=== PATIENT | male | born 1960 | race Hispanic/Latino ===

== ENCOUNTER 2017-12-15 21:25 | Emergency (ER) | payer MEDICARE ==
[2017-12-15 22:33] VITALS: BP 103/67
--- NOTE | 2017-12-16 00:13 | Cat Scan Report ---
FINAL REPORT PROCEDURE: CT HEAD/BRAIN WO CON TECHNIQUE: Computerized tomography of the head was performed without contrast material. HISTORY: fall, right brow abrasion COMPARISON: 01/10/2015 FINDINGS: Skull and scalp: Normal. Paranasal sinuses: Mild opacification of the ethmoid sinuses. Ventricles and subarachnoid spaces: Normal. Cerebrum: No evidence of hemorrhage, acute infarction or mass. Moderate atrophy and periventricular deep white matter changes.. Cerebellum and brainstem: No evidence of hemorrhage, acute infarction or mass. Vasculature: Normal. Comments: None. IMPRESSION: There is no evidence of an acute intracranial process. Moderate atrophy and periventricular deep white matter changes.
--- NOTE | 2017-12-16 00:14 | Cat Scan Report ---
FINAL REPORT PROCEDURE: CT CERVICAL SPINE WO CON TECHNIQUE: Computerized tomography of the cervical spine was performed from the skull base to T1 without contrast material. HISTORY: fall, head injury COMPARISON: No prior studies are available for comparison. FINDINGS: The alignment of the vertebral segments is normal. The heights of the vertebral bodies are maintained. There is loss of disc space height at the C6-7 level. Moderate spur formation off the vertebral bodies from the C5 through the C7 vertebral levels is noted. No acute fracture or dislocation of the cervical spine. Spinal canal is adequate at all levels. The visualized portion of the airway is patent IMPRESSION: No acute fracture dislocation of the cervical spine. Mild cervical spondylosis and degenerative disc changes in the lower cervical spine as described..
--- NOTE | 2017-12-16 00:27 | Emergency Department Report ---
ED Fall HPI - General Chief Complaint: Fall Stated Complaint: FALL Time Seen by Provider: 12/15/17 22:31 Source: EMS Mode of arrival: Stretcher Limitations: Physical Limitation, Other - History of Present Illness Initial Comments: 57-year-old male with a past medical history of COPD, diabetes, hypertension, CVA with right hemiplegia presents to the hospital from alf status post fall. Patient fell striking his head. No LOC reported. Patient appears to be nonambulatory. Details of fall unknown at this time. Patient has dysarthria but can shake his head yes and no to questions. He denies any pain at this time. Oriented at least to self - Related Data Home Medications Medication Instructions Recorded Confirmed Last Taken Amiodarone [Cordarone 200 MG TAB] 200 mg FEEDTUBE BID 03/13/15 06/21/16 06/20/16 Aspirin [Aspirin TAB] 325 mg FEEDTUBE DAILY 03/13/15 06/21/16 06/20/16 Atorvastatin [Lipitor] 40 mg FEEDTUBE QHS 03/13/15 06/21/16 06/20/16 Insulin Glargine [Lantus VIAL] 8 unit SUB-Q QHS 03/13/15 06/21/16 06/20/16 Ipratropium/Albuterol Sulfate 3 ml IH Q8H 03/13/15 06/20/16 06/20/16 [Iprat-Albut 0.5-3(2.5) mg/3 ml] AtorvaSTATin [Lipitor] 40 mg FEEDTUBE QHS 06/21/16 06/21/16 06/20/16 D-Methorphan/PE/Acetaminophen 325 each FEEDTUBE Q6HR 06/21/16 06/21/16 06/20/16 [Tylenol Cold Max Day Caplet] Gabapentin [Neurontin] 300 mg FEEDTUBE BID 06/21/16 06/21/16 06/20/16 Insulin Glargine [Lantus VIAL] 8 unit SUB-Q QHS 06/21/16 06/21/16 06/20/16 LORazepam [Ativan] 0.5 mg FEEDTUBE Q6H PRN 06/21/16 06/21/16 06/20/16 Omeprazole 20 mg FEEDTUBE DAILY 06/21/16 06/21/16 06/20/16 Vitamin B Complex [B Complex] 30 ml FEEDTUBE DAILY 06/21/16 06/21/16 06/20/16 oxyCODONE /ACETAMINOPHEN [Percocet 1 tab FEEDTUBE Q6HR PRN 06/21/16 06/21/16 5/325 mg] Previous Rx's Medication Instructions Recorded Last Taken Type Levofloxacin [Levaquin TAB] 500 mg PO QDAY #3 tablet 06/23/16 Unknown Rx predniSONE [Deltasone] 50 mg PO QDAY #5 tab 06/23/16 Unknown Rx Allergies Allergy/AdvReac Type Severity Reaction Status Date / Time No Known Allergies Allergy Verified 02/27/15 00:48 ED Review of Systems ROS: Stated complaint: FALL Other details as noted in HPI Comment: Unobtainable due to pts medical conditions (dyarthria, cva) ED Past Medical Hx - Past Medical History Previous Medical History?: Yes Hx Hypertension: Yes Hx CVA: Yes Hx Congestive Heart Failure: No (unknown) Hx Diabetes: Yes Hx Renal Disease: No (BETHEL, resolved) Hx Asthma: No (unknown) Hx COPD: Yes - Surgical History Past Surgical History?: No Additional Surgical History: bree - Social History Smoking Status: Unknown if ever smoked Substance Use Type: None - Medications Home Medications: Home Medications Medication Instructions Recorded Confirmed Last Taken Type Amiodarone [Cordarone 200 MG TAB] 200 mg FEEDTUBE BID 03/13/15 06/21/16 History Aspirin [Aspirin TAB] 325 mg FEEDTUBE DAILY 03/13/15 06/21/16 06/20/16 History Atorvastatin [Lipitor] 40 mg FEEDTUBE QHS 03/13/15 06/21/16 06/20/16 History Insulin Glargine [Lantus VIAL] 8 unit SUB-Q QHS 03/13/15 06/21/16 06/20/16 History Ipratropium/Albuterol Sulfate 3 ml IH Q8H 03/13/15 06/20/16 06/20/16 History [Iprat-Albut 0.5-3(2.5) mg/3 ml] AtorvaSTATin [Lipitor] 40 mg FEEDTUBE QHS 06/21/16 06/21/16 06/20/16 History D-Methorphan/PE/Acetaminophen 325 each FEEDTUBE Q6HR 06/21/16 06/21/16 06/20/16 History [Tylenol Cold Max Day Caplet] Gabapentin [Neurontin] 300 mg FEEDTUBE BID 06/21/16 06/21/16 06/20/16 History Insulin Glargine [Lantus VIAL] 8 unit SUB-Q QHS 06/21/16 06/21/16 06/20/16 History LORazepam [Ativan] 0.5 mg FEEDTUBE Q6H PRN 06/21/16 06/21/16 06/20/16 History Omeprazole 20 mg FEEDTUBE DAILY 06/21/16 06/21/16 06/20/16 History Vitamin B Complex [B Complex] 30 ml FEEDTUBE DAILY 06/21/16 06/21/16 06/20/16 History oxyCODONE /ACETAMINOPHEN [Percocet 1 tab FEEDTUBE Q6HR PRN 06/21/16 06/21/16 History 5/325 mg] Levofloxacin [Levaquin TAB] 500 mg PO QDAY #3 tablet 06/23/16 Unknown Rx predniSONE [Deltasone] 50 mg PO QDAY #5 tab 06/23/16 Unknown Rx ED Physical Exam - General Limitations: Other - Other Other exam information: General: No limitations, patient is alert in no acute distress Head exam: Right lateral brow abrasion/contusion Eyes exam: Normal appearance, pupils equal reactive to light ENT: Moist mucous membrane, normal oropharynx Neck exam: Normal inspection, full range of motion, no meningismus nontender Respiratory exam: Clear to auscultation bilateral, no wheezes, rales, crackles Cardiovascular: Normal rate and rhythm Abdomen: Soft, nondistended, and nontender, with normal bowel sounds, no rebound, or guarding Extremity: Full range of motion normal inspection no deformity Back: Normal Inspection, full range of motion, no tenderness Neurologic: Alert, right-sided weakness of right arm contraction.Good Hand 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 systems planner on the left and good left foot dorsiflexion Psychiatric: normal affect, normal mood Skin: Warm, dry, intact ED Course Vital Signs 12/15/17 22:31 Temperature 98.2 F Pulse Rate 80 Respiratory 18 Rate Blood Pressure 103/67 O2 Sat by Pulse 97 Oximetry ED Medical Decision Making - Radiology Data Radiology results: report reviewed read by radiologist ct Head: naf ct cervical spine: naf see report for chronic/incidental findings Critical Care Time: No Critical care attestation.: If time is entered above; I have spent that time in minutes in the direct care of this critically ill patient, excluding procedure time. ED Disposition Clinical Impression: Fall Qualifiers: Encounter type: initial encounter Qualified Code(s): W19.XXXA - Unspecified fall, initial encounter Contusion, brow Qualifiers: Encounter type: initial encounter Qualified Code(s): S00.83XA - Contusion of other part of head, initial encounter Disposition: DC-01 TO HOME OR SELFCARE Is pt being admited?: No Does the pt Need Aspirin: No Condition: Stable Instructions: Fall Prevention for Older Adults (ED) Referrals: CAROLINE NG MD [Primary Care Provider] - 3-5 Days Time of Disposition: 00:28
== END 2017-12-16 02:37 | disposition home or self-care (01) ==
LOC: ED 21:25
DX: S00.83XA Contusion of other part of head, initial encounter (principal); I10 Essential (primary) hypertension; E11.9 Type 2 diabetes mellitus without complications; J44.9 Chronic obstructive pulmonary disease, unspecified; Z86.73 Personal history of transient ischemic attack (TIA), and cerebral infarction without residual deficits; W18.09XA Striking against other object with subsequent fall, initial encounter; Y93.89 Activity, other specified; Y99.8 Other external cause status; Y92.129 Unspecified place in nursing home as the place of occurrence of the external cause
CPT/HCPCS: 70450; 72125

== ENCOUNTER 2018-01-17 07:48 | Inpatient (IN) | payer MEDICARE ==
[2018-01-17] MEDS ORDERED: NACL 0.9% 1000 ML 1,000 ML IV ONE (09:24)
[2018-01-17 10:14] LABS: Hematocrit 47.5 % (35.5-45.6); Hemoglobin 15.6 gm/dl (11.8-15.2); Mean Corpuscular HGB Conc 33 % (32-34); Mean Corpuscular Hemoglobin 30 pg (28-32); Mean Corpuscular Volume 92 fl (84-94); Red Blood Count 5.13 M/mm3 (3.65-5.03); Red Cell Distribution Width 14.8 % (13.2-15.2)
[2018-01-17 10:18] LABS: INR 0.95 (0.87-1.13); Partial Thromboplastin Time 25.4 Sec. (24.2-36.6)
[2018-01-17 10:23] LABS: Alanine Aminotransferase 47 units/L (7-56); Albumin 3.7 g/dL (3.9-5); BUN/Creatinine Ratio 53; Blood Urea Nitrogen 21 mg/dL (9-20); Calcium 8.9 mg/dL (8.4-10.2); Hemolysis Index 40; Lipase 52 units/L (13-60)
[2018-01-17 11:06] LABS: Platelet Count 103 K/mm3 (140-440)
[2018-01-17 11:09] LABS: Band Neutrophils # (Manual) 0.1 K/mm3; Basophils % (Manual) 0 % (0.0-1.8); Total Cells Counted 100
[2018-01-17 11:10] LABS: Anisocytosis 1+; Ovalocytes Few; Platelet Estimate Consistent w Auto
--- NOTE | 2018-01-17 14:31 | Emergency Department Report ---
HPI - General Chief Complaint: Weakness Time Seen by Provider: 01/17/18 09:24 - HPI HPI: 57-year-old who resides in a assisted, was sent to er for g-tube malfunction , and unable to feed patient. patient had g-tube broken for about two months, but according to assisted, according to staff, patient's g-tube has been broken for over a month but has been somehow functional until today. patient g- tube was unable to be flushed so he was sent to er. 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 he also has a h/o contractions right side, type 2 dm, htn, seizures, kidney disease. ED Past Medical Hx - Past Medical History Hx Hypertension: Yes Hx CVA: Yes Hx Congestive Heart Failure: No (unknown) Hx Diabetes: Yes Hx Renal Disease: No (BETHEL, resolved) Hx Asthma: No (unknown) Hx COPD: Yes - Surgical History Additional Surgical History: bree - Social History Smoking Status: Unknown if ever smoked - Medications Home Medications: Home Medications Medication Instructions Recorded Confirmed Last Taken Type Amiodarone [Cordarone 200 MG TAB] 200 mg FEEDTUBE BID 03/13/15 06/21/16 History Aspirin [Aspirin TAB] 325 mg FEEDTUBE DAILY 03/13/15 06/21/16 06/20/16 History Insulin Glargine [Lantus VIAL] 8 unit SUB-Q QHS 03/13/15 06/21/16 06/20/16 History Ipratropium/Albuterol Sulfate 3 ml IH Q8H 03/13/15 06/20/16 06/20/16 History [Iprat-Albut 0.5-3(2.5) mg/3 ml] AtorvaSTATin [Lipitor] 40 mg FEEDTUBE QHS 06/21/16 06/21/16 06/20/16 History D-Methorphan/PE/Acetaminophen 325 each FEEDTUBE Q6HR 06/21/16 06/21/16 06/20/16 History [Tylenol Cold Max Day Caplet] Gabapentin [Neurontin] 300 mg FEEDTUBE BID 06/21/16 06/21/16 06/20/16 History Insulin Glargine [Lantus VIAL] 8 unit SUB-Q QHS 06/21/16 06/21/16 06/20/16 History LORazepam [Ativan] 0.5 mg FEEDTUBE Q6H PRN 06/21/16 06/21/16 06/20/16 History Omeprazole 20 mg FEEDTUBE DAILY 06/21/16 06/21/16 06/20/16 History Vitamin B Complex [B Complex] 30 ml FEEDTUBE DAILY 06/21/16 06/21/16 06/20/16 History oxyCODONE /ACETAMINOPHEN [Percocet 1 tab FEEDTUBE Q6HR PRN 06/21/16 06/21/16 History 5/325 mg] predniSONE [Deltasone] 50 mg PO QDAY #5 tab 06/23/16 Unknown Rx ED Review of Systems ROS: Stated complaint: G TUBE REPLACE/LOW BP Other details as noted in HPI Comment: Unobtainable due to pts medical conditions Physical Exam - Physical Exam Vital Signs: Vital Signs 01/17/18 01/17/18 01/17/18 07:53 08:09 08:28 Temperature 98.0 F 98.0 F Pulse Rate 67 67 Respiratory 17 17 Rate Blood Pressure 94/56 Blood Pressure 94/56 [Right] O2 Sat by Pulse 96 94 67 L Oximetry 01/17/18 01/17/18 01/17/18 08:45 09:15 09:30 Temperature Pulse Rate 67 73 65 Respiratory 13 17 17 Rate Blood Pressure 96/65 83/59 Blood Pressure [Right] O2 Sat by Pulse 97 98 95 Oximetry 01/17/18 01/17/18 01/17/18 09:45 10:00 10:15 Temperature Pulse Rate 64 62 65 Respiratory 17 17 17 Rate Blood Pressure 97/64 97/64 91/63 Blood Pressure [Right] O2 Sat by Pulse 95 96 97 Oximetry 01/17/18 01/17/18 01/17/18 10:30 10:45 11:00 Temperature Pulse Rate 64 57 L 60 Respiratory 12 16 18 Rate Blood Pressure 96/64 98/64 107/66 Blood Pressure [Right] O2 Sat by Pulse 99 97 97 Oximetry Physical Exam: Gen. Awake nonverbal Head atraumatic normocephalic Eyes PERR LA EOMI Chest regular rate and rhythm normal S1-S2 lungs clear bilaterally Abdomen soft nondistended, g-tube area Back no point tenderness paravertebral tenderness Neuro no focal deficit. Psych normal mood. ED Course Vital Signs 01/17/18 01/17/18 01/17/18 07:53 08:09 08:28 Temperature 98.0 F 98.0 F Pulse Rate 67 67 Respiratory 17 17 Rate Blood Pressure 94/56 Blood Pressure 94/56 [Right] O2 Sat by Pulse 96 94 67 L Oximetry 01/17/18 01/17/18 01/17/18 08:45 09:15 09:30 Temperature Pulse Rate 67 73 65 Respiratory 13 17 17 Rate Blood Pressure 96/65 83/59 Blood Pressure [Right] O2 Sat by Pulse 97 98 95 Oximetry 01/17/18 01/17/18 01/17/18 09:45 10:00 10:15 Temperature Pulse Rate 64 62 65 Respiratory 17 17 17 Rate Blood Pressure 97/64 97/64 91/63 Blood Pressure [Right] O2 Sat by Pulse 95 96 97 Oximetry 01/17/18 01/17/18 01/17/18 10:30 10:45 11:00 Temperature Pulse Rate 64 57 L 60 Respiratory 12 16 18 Rate Blood Pressure 96/64 98/64 107/66 Blood Pressure [Right] O2 Sat by Pulse 99 97 97 Oximetry ED Medical Decision Making - Lab Data Result diagrams: 01/20/18 09:02 01/17/18 09:53 Critical care attestation.: If time is entered above; I have spent that time in minutes in the direct care of this critically ill patient, excluding procedure time. ED Disposition Clinical Impression: PEG (percutaneous endoscopic gastrostomy) adjustment/replacement/removal Disposition: OP ADMIT IP TO THIS HOSP Is pt being admited?: Yes Does the pt Need Aspirin: No Condition: Stable
--- NOTE | 2018-01-17 16:22 | History and Physical Report ---
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 Pt is nonverbal and unable to provide history. History taken from [facility] staff. As per SNF staff, the patient was sent to ED for evaluation of Gastric-tube malfunction, and subsequent inability to feed patient. Patient G-tube broken for about two months, but has been functional until today. Pt seen and evaluated in ED and found to have nonfunctional G tube. Surgery team consulted. GI team consulted, and will replace G tube in AM. No reports of fever, chills, CP, Palpitations, Trauma, BRBPR, productive cough, skin rash or recent ill contacts. Past History Past Medical History: COPD, diabetes, hypertension, stroke Past Surgical History: Other (G tube placement) Social history: single. denies: smoking, alcohol abuse, prescription drug abuse Family history: no significant family history (reviewed) Medications and Allergies Allergies Allergy/AdvReac Type Severity Reaction Status Date / Time No Known Allergies Allergy Verified 02/27/15 00:48 Home Medications Medication Instructions Recorded Confirmed Last Taken Type Amiodarone [Cordarone 200 MG TAB] 200 mg FEEDTUBE BID 03/13/15 06/21/16 History Aspirin [Aspirin TAB] 325 mg FEEDTUBE DAILY 03/13/15 06/21/16 06/20/16 History Atorvastatin [Lipitor] 40 mg FEEDTUBE QHS 03/13/15 06/21/16 06/20/16 History Insulin Glargine [Lantus VIAL] 8 unit SUB-Q QHS 03/13/15 06/21/16 06/20/16 History Ipratropium/Albuterol Sulfate 3 ml IH Q8H 03/13/15 06/20/16 06/20/16 History [Iprat-Albut 0.5-3(2.5) mg/3 ml] AtorvaSTATin [Lipitor] 40 mg FEEDTUBE QHS 06/21/16 06/21/16 06/20/16 History D-Methorphan/PE/Acetaminophen 325 each FEEDTUBE Q6HR 06/21/16 06/21/16 06/20/16 History [Tylenol Cold Max Day Caplet] Gabapentin [Neurontin] 300 mg FEEDTUBE BID 06/21/16 06/21/16 06/20/16 History Insulin Glargine [Lantus VIAL] 8 unit SUB-Q QHS 06/21/16 06/21/16 06/20/16 History LORazepam [Ativan] 0.5 mg FEEDTUBE Q6H PRN 06/21/16 06/21/16 06/20/16 History Omeprazole 20 mg FEEDTUBE DAILY 06/21/16 06/21/16 06/20/16 History Vitamin B Complex [B Complex] 30 ml FEEDTUBE DAILY 06/21/16 06/21/16 06/20/16 History oxyCODONE /ACETAMINOPHEN [Percocet 1 tab FEEDTUBE Q6HR PRN 06/21/16 06/21/16 History 5/325 mg] Levofloxacin [Levaquin TAB] 500 mg PO QDAY #3 tablet 06/23/16 Unknown Rx predniSONE [Deltasone] 50 mg PO QDAY #5 tab 06/23/16 Unknown Rx Review of Systems ROS unobtainable: due to mental status Exam - Constitutional Vitals: Temp Pulse Resp BP Pulse Ox 98.0 F 60 18 107/66 95 01/17/18 08:28 01/17/18 11:00 01/17/18 12:01 01/17/18 11:00 01/17/18 12:01 General appearance: Present: mild distress, cachectic - EENT Eyes: Present: miosis - Neck Neck: Present: supple, normal ROM - Respiratory Respiratory: bilateral: diminished, rhonchi - Cardiovascular Heart Sounds: Present: S1 & S2. Absent: rub, click - Extremities Extremities: pulses symmetrical, No edema Peripheral Pulses: within normal limits - Abdominal General gastrointestinal: Present: soft, non-distended, other (G tube remnant in place. ) Male genitourinary: Present: normal - Integumentary Integumentary: Present: clear, warm, dry - Musculoskeletal Musculoskeletal: left sided weakness - Psychiatric Psychiatric: no intact judgment & insight, no memory intact - Neurologic Neurologic: focal deficits, no gait normal Results - Labs CBC & Chem 7: 01/17/18 09:53 01/17/18 09:53 Labs: Abnormal lab results 01/17/18 01/17/18 Range/Units 09:53 09:53 RBC 5.13 H (3.65-5.03) M/mm3 Hgb 15.6 H (11.8-15.2) gm/dl Hct 47.5 H (35.5-45.6) % Plt Count 103 L (140-440) K/mm3 Eosinophils % (Manual) 10.0 H (0.0-4.3) % Eosinophils # (Manual) 0.6 H (0.0-0.4) K/mm3 BUN 21 H (9-20) mg/dL Creatinine 0.4 L (0.8-1.5) mg/dL Albumin 3.7 L (3.9-5) g/dL Assessment and Plan - Patient Problems (1) Gastrostomy tube dysfunction Current Visit: Yes Status: Acute Plan to address problem: Surgery Consulted, GI consulted, Pending replacement in AM. supportive care, NPO for now. IVF resuscitation, (2) HTN (hypertension) Current Visit: Yes Status: Acute Qualifiers: Hypertension type: essential hypertension Qualified Code(s): I10 - Essential (primary) hypertension Plan to address problem: monitor bp q shift, IV hydralazine prn (3) Diabetes 1.5, managed as type 2 Current Visit: No Status: Chronic Plan to address problem: Consistent carbohydrate diet, insulin, accu check (4) DVT prophylaxis Current Visit: Yes Status: Acute Plan to address problem: SCD to ble while in bed
[2018-01-17] MEDS ORDERED: SODIUM CHLORIDE FLUSH SYRINGE 10 ML IV PRN (16:24)
[2018-01-17] MEDS ORDERED: PROVENTIL IH PRN (16:24)
[2018-01-17] MEDS ORDERED: TYLENOL PO PRN (16:24)
[2018-01-17] MEDS ORDERED: ZOFRAN IV PRN (16:24)
[2018-01-17] MEDS: SODIUM CHLORIDE FLUSH SYRINGE 10 ML IV SCH (22:05)
[2018-01-17] MEDS: NACL 0.9% 1000 ML 1,000 ML IV SCH (22:05)
--- NOTE | 2018-01-18 10:41 | Gastroenterology Consultation ---
<SUDHIR GRIFFIN - Last Filed: 01/18/18 10:43> History of Present Illness - Reason for Consult Consult date: 01/18/18 PEG replacement Requesting physician: RENÉE GONZALEZ - History of Present Illness Patient is a 57 y/o male detention resident with PMH of HTN, DM, COPD, CVA with LHP, contracture, and dysphagia (s/p PEG) who presented to ED for G-tube malfunction to which GI has been consulted. Pt non-verbal and unable to give history. History obtained via chart review. According to [facility] staff, G-tube has been broken for over a month. Upon exam only a small amount of G-tube remnant remained with bumper intact. Abd soft, non-distended. Past History Past Medical History: COPD, diabetes, hypertension, stroke Past Surgical History: Other (G tube placement) Social history: single. denies: smoking, alcohol abuse, prescription drug abuse Family history: no significant family history (reviewed) Medications and Allergies Allergies Allergy/AdvReac Type Severity Reaction Status Date / Time No Known Allergies Allergy Verified 02/27/15 00:48 Home Medications Medication Instructions Recorded Confirmed Last Taken Type Amiodarone [Cordarone 200 MG TAB] 200 mg FEEDTUBE BID 03/13/15 06/21/16 History Aspirin [Aspirin TAB] 325 mg FEEDTUBE DAILY 03/13/15 06/21/16 06/20/16 History Atorvastatin [Lipitor] 40 mg FEEDTUBE QHS 03/13/15 06/21/16 06/20/16 History Insulin Glargine [Lantus VIAL] 8 unit SUB-Q QHS 03/13/15 06/21/16 06/20/16 History Ipratropium/Albuterol Sulfate 3 ml IH Q8H 03/13/15 06/20/16 06/20/16 History [Iprat-Albut 0.5-3(2.5) mg/3 ml] AtorvaSTATin [Lipitor] 40 mg FEEDTUBE QHS 06/21/16 06/21/16 06/20/16 History D-Methorphan/PE/Acetaminophen 325 each FEEDTUBE Q6HR 06/21/16 06/21/16 06/20/16 History [Tylenol Cold Max Day Caplet] Gabapentin [Neurontin] 300 mg FEEDTUBE BID 06/21/16 06/21/16 06/20/16 History Insulin Glargine [Lantus VIAL] 8 unit SUB-Q QHS 06/21/16 06/21/16 06/20/16 History LORazepam [Ativan] 0.5 mg FEEDTUBE Q6H PRN 06/21/16 06/21/16 06/20/16 History Omeprazole 20 mg FEEDTUBE DAILY 06/21/16 06/21/16 06/20/16 History Vitamin B Complex [B Complex] 30 ml FEEDTUBE DAILY 06/21/16 06/21/16 06/20/16 History oxyCODONE /ACETAMINOPHEN [Percocet 1 tab FEEDTUBE Q6HR PRN 06/21/16 06/21/16 History 5/325 mg] Levofloxacin [Levaquin TAB] 500 mg PO QDAY #3 tablet 06/23/16 Unknown Rx predniSONE [Deltasone] 50 mg PO QDAY #5 tab 06/23/16 Unknown Rx Active Meds: Active Medications Acetaminophen (Tylenol) 650 mg PO Q4H PRN PRN Reason: Pain MILD(1-3)/Fever >100.5/WELLER Albuterol (Proventil) 2.5 mg IH Q4HRT PRN PRN Reason: Shortness Of Breath Sodium Chloride (Nacl 0.9% 1000 Ml) 1,000 mls @ 75 mls/hr IV DIRECT [facility] Last Admin: 01/17/18 22:05 Dose: 75 mls/hr Ondansetron HCl (Zofran) 4 mg IV Q8H PRN PRN Reason: Nausea And Vomiting Sodium Chloride (Sodium Chloride Flush Syringe 10 Ml) 10 ml IV BID [facility] Last Admin: 01/17/18 22:05 Dose: 10 ml Sodium Chloride (Sodium Chloride Flush Syringe 10 Ml) 10 ml IV PRN PRN PRN Reason: LINE FLUSH Review of Systems - Review of Systems ROS unobtainable: due to mental status Exam - Constitutional Vital Signs: Temp Pulse Resp BP Pulse Ox 98.2 F 69 20 108/72 95 01/18/18 07:33 01/18/18 07:33 01/18/18 07:33 01/18/18 07:33 01/18/18 07:33 General appearance: no acute distress, other (alert, non-verbal) - Respiratory Respiratory: bilateral: diminished (anterior) - Cardiovascular Rhythm: regular Heart Sounds: Present: S1 & S2 - Gastrointestinal General gastrointestinal: Present: soft, non-distended, normal bowel sounds, other (+PEG remnant) - Neurologic Neurological: other (unable to assess) - Labs CBC & Chem 7: 01/17/18 09:53 01/17/18 09:53 Lab Results: Laboratory Results - last 24 hr 01/17/18 09:53 WBC 5.9 RBC 5.13 H Hgb 15.6 H Hct 47.5 H MCV 92 MCH 30 MCHC 33 RDW 14.8 Plt Count 103 L Add Manual Diff Complete Total Counted 100 Seg Neuts % (Manual) 61.0 Band Neutrophils % 1.0 Lymphocytes % (Manual) 21.0 Reactive Lymphs % (Man) 0 Monocytes % (Manual) 7.0 Eosinophils % (Manual) 10.0 H Basophils % (Manual) 0 Metamyelocytes % 0 Myelocytes % 0 Promyelocytes % 0 Blast Cells % 0 Nucleated RBC % Not Reportable Seg Neutrophils # Man 3.6 Band Neutrophils # 0.1 Lymphocytes # (Manual) 1.2 Abs React Lymphs (Man) 0.0 Monocytes # (Manual) 0.4 Eosinophils # (Manual) 0.6 H Basophils # (Manual) 0.0 Metamyelocytes # 0.0 Myelocytes # 0.0 Promyelocytes # 0.0 Blast Cells # 0.0 WBC Morphology Not Reportable Hypersegmented Neuts Not Reportable Hyposegmented Neuts Not Reportable Hypogranular Neuts Not Reportable Smudge Cells Not Reportable Toxic Granulation Not Reportable Toxic Vacuolation Not Reportable Dohle Bodies Not Reportable Pelger-Huet Anomaly Not Reportable Meghan Rods Not Reportable Platelet Estimate Consistent w auto Clumped Platelets Not Reportable Plt Clumps, EDTA Not Reportable Large Platelets Not Reportable Giant Platelets Not Reportable Platelet Satelliting Not Reportable Plt Morphology Comment Not Reportable RBC Morphology Not Reportable Dimorphic RBCs Not Reportable Polychromasia Not Reportable Hypochromasia Not Reportable Poikilocytosis Not Reportable Anisocytosis 1+ Microcytosis Not Reportable Macrocytosis Not Reportable Spherocytes Not Reportable Pappenheimer Bodies Not Reportable Sickle Cells Not Reportable Target Cells Not Reportable Tear Drop Cells Not Reportable Ovalocytes Few Helmet Cells Not Reportable [place] Bodies Not Reportable [place] Rings Not Reportable Constantino Cells Not Reportable Bite Cells Not Reportable Crenated Cell Not Reportable Elliptocytes Not Reportable Acanthocytes (Spur) Not Reportable Rouleaux Not Reportable Hemoglobin C Crystals Not Reportable Schistocytes Not Reportable Malaria parasites Not Reportable [place] Bodies Not Reportable Hem Pathologist Commnt No Assessment and Plan 1.PEG replacement -small amount of PEG remnant remains with bumper intact -will have Dr. Mares assess today for PEG replacement -continue supportive care -further recommendations to follow <PAZ MARES - Last Filed: 01/18/18 21:13> Medications and Allergies Active Meds: Active Medications Acetaminophen (Tylenol) 650 mg PO Q4H PRN PRN Reason: Pain MILD(1-3)/Fever >100.5/WELLER Albuterol (Proventil) 2.5 mg IH Q4HRT PRN PRN Reason: Shortness Of Breath Sodium Chloride (Nacl 0.9% 1000 Ml) 1,000 mls @ 75 mls/hr IV DIRECT [facility] Last Admin: 01/17/18 22:05 Dose: 75 mls/hr Ondansetron HCl (Zofran) 4 mg IV Q8H PRN PRN Reason: Nausea And Vomiting Sodium Chloride (Sodium Chloride Flush Syringe 10 Ml) 10 ml IV BID [facility] Last Admin: 01/18/18 15:08 Dose: 10 ml Sodium Chloride (Sodium Chloride Flush Syringe 10 Ml) 10 ml IV PRN PRN PRN Reason: LINE FLUSH Exam - Constitutional Vital Signs: Temp Pulse Resp BP Pulse Ox 98.5 F 74 20 107/69 99 01/18/18 15:37 01/18/18 15:37 01/18/18 15:37 01/18/18 15:37 01/18/18 15:37 - Labs CBC & Chem 7: 01/17/18 09:53 01/17/18 09:53 Assessment and Plan Patient seen and examined. Agree with note above. The external portion of Peg tube appears to have been cut although details regarding it's current condition is unclear. the bumper appears intact and likely the internal portion. He needs peg exchange, may need to be done with anesthesia however given mental status and unclear how he would tolerate removal at bedside with subsequent peg exchange. attempt to obtain consent from family member if possible, otherwise would need to be done on "emergent" basis for nutrition/medication purposes if NOK is not obtainable.
[2018-01-18] MEDS: SODIUM CHLORIDE FLUSH SYRINGE 10 ML IV SCH (15:08)
--- NOTE | 2018-01-18 17:57 | Progress Note ---
Assessment and Plan Assessment and plan: --Malfunctioning of PEG tube; GI evaluation, possible PEG tube replacement, nothing by mouth, IV fluids Supportive care --Type 2 diabetes mellitus; Accu-Chek sliding scale coverage, tube feeding after PEG placement --Hypertension; moderate control, continue antihypertensives When necessary hydralazine --DVT prophylaxis; SCDs, no pharmacologic anticoagulation pending procedure --Full CODE STATUS Follow GI evaluation and recommendations DC planning. Case management, discharged back to SNF After PEG placement History Interval history: Patient was admitted with malfunctioning of PEG tube GI evaluated the patient, possible replacement of PEG tube No new events reported by the nursing staff Patient is noncommunicative Vital signs reviewed Hospitalist Physical - Constitutional Vitals: Temp Pulse Resp BP Pulse Ox 98.5 F 74 20 107/69 99 01/18/18 15:37 01/18/18 15:37 01/18/18 15:37 01/18/18 15:37 01/18/18 15:37 General appearance: Present: mild distress, cachectic - EENT Eyes: Present: PERRL, EOM intact - Neck Neck: Present: supple, normal ROM - Respiratory Respiratory effort: normal Respiratory: bilateral: diminished, rhonchi, negative: rales, wheezing - Cardiovascular Rhythm: regular Heart Sounds: Present: S1 & S2 - Extremities Extremities: no ischemia, No edema - Abdominal General gastrointestinal: soft, non-tender, non-distended, normal bowel sounds, other (residual piece of PEG tube noted, foul-smelling) - Integumentary Integumentary: Present: clear, warm - Psychiatric Psychiatric: other (noncommunicative) - Neurologic Neurologic: other (noncommunicative) Results - Labs CBC & Chem 7: 01/17/18 09:53 01/17/18 09:53 Labs: Laboratory Last Values WBC 5.9 K/mm3 (4.5-11.0) 01/17/18 09:53 RBC 5.13 M/mm3 (3.65-5.03) H 01/17/18 09:53 Hgb 15.6 gm/dl (11.8-15.2) H 01/17/18 09:53 Hct 47.5 % (35.5-45.6) H 01/17/18 09:53 MCV 92 fl (84-94) 01/17/18 09:53 MCH 30 pg (28-32) 01/17/18 09:53 MCHC 33 % (32-34) 01/17/18 09:53 RDW 14.8 % (13.2-15.2) 01/17/18 09:53 Plt Count 103 K/mm3 (140-440) L 01/17/18 09:53 Add Manual Diff Complete 01/17/18 09:53 Total Counted 100 01/17/18 09:53 Seg Neuts % (Manual) 61.0 % (40.0-70.0) 01/17/18 09:53 Band Neutrophils % 1.0 % 01/17/18 09:53 Lymphocytes % (Manual) 21.0 % (13.4-35.0) 01/17/18 09:53 Reactive Lymphs % (Man) 0 % 01/17/18 09:53 Monocytes % (Manual) 7.0 % (0.0-7.3) 01/17/18 09:53 Eosinophils % (Manual) 10.0 % (0.0-4.3) H 01/17/18 09:53 Basophils % (Manual) 0 % (0.0-1.8) 01/17/18 09:53 Metamyelocytes % 0 % 01/17/18 09:53 Myelocytes % 0 % 01/17/18 09:53 Promyelocytes % 0 % 01/17/18 09:53 Blast Cells % 0 % 01/17/18 09:53 Nucleated RBC % Not Reportable 01/17/18 09:53 Seg Neutrophils # Man 3.6 K/mm3 (1.8-7.7) 01/17/18 09:53 Band Neutrophils # 0.1 K/mm3 01/17/18 09:53 Lymphocytes # (Manual) 1.2 K/mm3 (1.2-5.4) 01/17/18 09:53 Abs React Lymphs (Man) 0.0 K/mm3 01/17/18 09:53 Monocytes # (Manual) 0.4 K/mm3 (0.0-0.8) 01/17/18 09:53 Eosinophils # (Manual) 0.6 K/mm3 (0.0-0.4) H 01/17/18 09:53 Basophils # (Manual) 0.0 K/mm3 (0.0-0.1) 01/17/18 09:53 Metamyelocytes # 0.0 K/mm3 01/17/18 09:53 Myelocytes # 0.0 K/mm3 01/17/18 09:53 Promyelocytes # 0.0 K/mm3 01/17/18 09:53 Blast Cells # 0.0 K/mm3 01/17/18 09:53 WBC Morphology Not Reportable 01/17/18 09:53 Hypersegmented Neuts Not Reportable 01/17/18 09:53 Hyposegmented Neuts Not Reportable 01/17/18 09:53 Hypogranular Neuts Not Reportable 01/17/18 09:53 Smudge Cells Not Reportable 01/17/18 09:53 Toxic Granulation Not Reportable 01/17/18 09:53 Toxic Vacuolation Not Reportable 01/17/18 09:53 Dohle Bodies Not Reportable 01/17/18 09:53 Pelger-Huet Anomaly Not Reportable 01/17/18 09:53 Meghan Rods Not Reportable 01/17/18 09:53 Platelet Estimate Consistent w auto 01/17/18 09:53 Clumped Platelets Not Reportable 01/17/18 09:53 Plt Clumps, EDTA Not Reportable 01/17/18 09:53 Large Platelets Not Reportable 01/17/18 09:53 Giant Platelets Not Reportable 01/17/18 09:53 Platelet Satelliting Not Reportable 01/17/18 09:53 Plt Morphology Comment Not Reportable 01/17/18 09:53 RBC Morphology Not Reportable 01/17/18 09:53 Dimorphic RBCs Not Reportable 01/17/18 09:53 Polychromasia Not Reportable 01/17/18 09:53 Hypochromasia Not Reportable 01/17/18 09:53 Poikilocytosis Not Reportable 01/17/18 09:53 Anisocytosis 1+ 01/17/18 09:53 Microcytosis Not Reportable 01/17/18 09:53 Macrocytosis Not Reportable 01/17/18 09:53 Spherocytes Not Reportable 01/17/18 09:53 Pappenheimer Bodies Not Reportable 01/17/18 09:53 Sickle Cells Not Reportable 01/17/18 09:53 Target Cells Not Reportable 01/17/18 09:53 Tear Drop Cells Not Reportable 01/17/18 09:53 Ovalocytes Few 01/17/18 09:53 Helmet Cells Not Reportable 01/17/18 09:53 [place] Bodies Not Reportable 01/17/18 09:53 [place] Rings Not Reportable 01/17/18 09:53 Constantino Cells Not Reportable 01/17/18 09:53 Bite Cells Not Reportable 01/17/18 09:53 Crenated Cell Not Reportable 01/17/18 09:53 Elliptocytes Not Reportable 01/17/18 09:53 Acanthocytes (Spur) Not Reportable 01/17/18 09:53 Rouleaux Not Reportable 01/17/18 09:53 Hemoglobin C Crystals Not Reportable 01/17/18 09:53 Schistocytes Not Reportable 01/17/18 09:53 Malaria parasites Not Reportable 01/17/18 09:53 [place] Bodies Not Reportable 01/17/18 09:53 Hem Pathologist Commnt No 01/17/18 09:53 PT 13.2 Sec. (12.2-14.9) 01/17/18 09:53 INR 0.95 (0.87-1.13) 01/17/18 09:53 APTT 25.4 Sec. (24.2-36.6) 01/17/18 09:53 Sodium 139 mmol/L (137-145) 01/17/18 09:53 Potassium 4.6 mmol/L (3.6-5.0) 01/17/18 09:53 Chloride 101.3 mmol/L (98-107) 01/17/18 09:53 Carbon Dioxide 29 mmol/L (22-30) 01/17/18 09:53 Anion Gap 13 mmol/L 01/17/18 09:53 BUN 21 mg/dL (9-20) H 01/17/18 09:53 Creatinine 0.4 mg/dL (0.8-1.5) L 01/17/18 09:53 Estimated GFR > 60 ml/min 01/17/18 09:53 BUN/Creatinine Ratio 53 % 01/17/18 09:53 Glucose 90 mg/dL (75-100) 01/17/18 09:53 Calcium 8.9 mg/dL (8.4-10.2) 01/17/18 09:53 Total Bilirubin 0.50 mg/dL (0.1-1.2) 01/17/18 09:53 AST 35 units/L (5-40) 01/17/18 09:53 ALT 47 units/L (7-56) 01/17/18 09:53 Alkaline Phosphatase 94 units/L (35-129) 01/17/18 09:53 Total Creatine Kinase 72 units/L (55-170) 01/17/18 09:53 Troponin T 0.022 ng/mL (0.00-0.029) 01/17/18 09:34 Total Protein 6.6 g/dL (6.3-8.2) 01/17/18 09:53 Albumin 3.7 g/dL (3.9-5) L 01/17/18 09:53 Albumin/Globulin Ratio 1.3 % 01/17/18 09:53 Lipase 52 units/L (13-60) 01/17/18 09:53
[2018-01-19] MEDS: SODIUM CHLORIDE FLUSH SYRINGE 10 ML IV SCH ×3 (00:41→22:24)
[2018-01-19] MEDS: NACL 0.9% 1000 ML 1,000 ML IV SCH (01:12)
--- NOTE | 2018-01-19 09:30 | Progress Note ---
Assessment and Plan Assessment and plan: --Malfunctioning of PEG tube; GI evaluation, possible PEG tube replacement, nothing by mouth, IV fluids Supportive care --Type 2 diabetes mellitus; Accu-Chek sliding scale coverage, tube feeding after PEG placement --Hypertension; moderate control, continue antihypertensives When necessary hydralazine --DVT prophylaxis; SCDs, no pharmacologic anticoagulation pending procedure --Full CODE STATUS Follow GI evaluation and recommendations DC planning. Case management, discharged back to SNF After PEG placement History Interval history: Patient seen and examined medical reports reviewed Admitted with malfunctioning of PEG tube GI evaluated possible replacement of PEG Patient is noncommunicative, not in acute distress Vital signs reviewed Hospitalist Physical - Constitutional Vitals: Temp Pulse Resp BP Pulse Ox 97.7 F 71 20 96/68 97 01/19/18 07:17 01/18/18 20:18 01/19/18 07:17 01/19/18 07:17 01/18/18 21:45 General appearance: Present: no acute distress, cachectic - EENT Eyes: Present: PERRL, EOM intact - Neck Neck: Present: supple, normal ROM - Respiratory Respiratory effort: normal Respiratory: negative: rales, rhonchi, wheezing - Cardiovascular Rhythm: regular Heart Sounds: Present: S1 & S2 - Extremities Extremities: no ischemia, No edema - Abdominal General gastrointestinal: soft, non-tender, non-distended, normal bowel sounds, other (residual piece of peg) - Integumentary Integumentary: Present: clear, warm - Psychiatric Psychiatric: other (noncommunicative) - Neurologic Neurologic: other (noncommunicative, residual neuro deficit) Results - Labs CBC & Chem 7: 01/17/18 09:53 01/17/18 09:53 Labs: Laboratory Last Values WBC 5.9 K/mm3 (4.5-11.0) 01/17/18 09:53 RBC 5.13 M/mm3 (3.65-5.03) H 01/17/18 09:53 Hgb 15.6 gm/dl (11.8-15.2) H 01/17/18 09:53 Hct 47.5 % (35.5-45.6) H 01/17/18 09:53 MCV 92 fl (84-94) 01/17/18 09:53 MCH 30 pg (28-32) 01/17/18 09:53 MCHC 33 % (32-34) 01/17/18 09:53 RDW 14.8 % (13.2-15.2) 01/17/18 09:53 Plt Count 103 K/mm3 (140-440) L 01/17/18 09:53 Add Manual Diff Complete 01/17/18 09:53 Total Counted 100 01/17/18 09:53 Seg Neuts % (Manual) 61.0 % (40.0-70.0) 01/17/18 09:53 Band Neutrophils % 1.0 % 01/17/18 09:53 Lymphocytes % (Manual) 21.0 % (13.4-35.0) 01/17/18 09:53 Reactive Lymphs % (Man) 0 % 01/17/18 09:53 Monocytes % (Manual) 7.0 % (0.0-7.3) 01/17/18 09:53 Eosinophils % (Manual) 10.0 % (0.0-4.3) H 01/17/18 09:53 Basophils % (Manual) 0 % (0.0-1.8) 01/17/18 09:53 Metamyelocytes % 0 % 01/17/18 09:53 Myelocytes % 0 % 01/17/18 09:53 Promyelocytes % 0 % 01/17/18 09:53 Blast Cells % 0 % 01/17/18 09:53 Nucleated RBC % Not Reportable 01/17/18 09:53 Seg Neutrophils # Man 3.6 K/mm3 (1.8-7.7) 01/17/18 09:53 Band Neutrophils # 0.1 K/mm3 01/17/18 09:53 Lymphocytes # (Manual) 1.2 K/mm3 (1.2-5.4) 01/17/18 09:53 Abs React Lymphs (Man) 0.0 K/mm3 01/17/18 09:53 Monocytes # (Manual) 0.4 K/mm3 (0.0-0.8) 01/17/18 09:53 Eosinophils # (Manual) 0.6 K/mm3 (0.0-0.4) H 01/17/18 09:53 Basophils # (Manual) 0.0 K/mm3 (0.0-0.1) 01/17/18 09:53 Metamyelocytes # 0.0 K/mm3 01/17/18 09:53 Myelocytes # 0.0 K/mm3 01/17/18 09:53 Promyelocytes # 0.0 K/mm3 01/17/18 09:53 Blast Cells # 0.0 K/mm3 01/17/18 09:53 WBC Morphology Not Reportable 01/17/18 09:53 Hypersegmented Neuts Not Reportable 01/17/18 09:53 Hyposegmented Neuts Not Reportable 01/17/18 09:53 Hypogranular Neuts Not Reportable 01/17/18 09:53 Smudge Cells Not Reportable 01/17/18 09:53 Toxic Granulation Not Reportable 01/17/18 09:53 Toxic Vacuolation Not Reportable 01/17/18 09:53 Dohle Bodies Not Reportable 01/17/18 09:53 Pelger-Huet Anomaly Not Reportable 01/17/18 09:53 Meghan Rods Not Reportable 01/17/18 09:53 Platelet Estimate Consistent w auto 01/17/18 09:53 Clumped Platelets Not Reportable 01/17/18 09:53 Plt Clumps, EDTA Not Reportable 01/17/18 09:53 Large Platelets Not Reportable 01/17/18 09:53 Giant Platelets Not Reportable 01/17/18 09:53 Platelet Satelliting Not Reportable 01/17/18 09:53 Plt Morphology Comment Not Reportable 01/17/18 09:53 RBC Morphology Not Reportable 01/17/18 09:53 Dimorphic RBCs Not Reportable 01/17/18 09:53 Polychromasia Not Reportable 01/17/18 09:53 Hypochromasia Not Reportable 01/17/18 09:53 Poikilocytosis Not Reportable 01/17/18 09:53 Anisocytosis 1+ 01/17/18 09:53 Microcytosis Not Reportable 01/17/18 09:53 Macrocytosis Not Reportable 01/17/18 09:53 Spherocytes Not Reportable 01/17/18 09:53 Pappenheimer Bodies Not Reportable 01/17/18 09:53 Sickle Cells Not Reportable 01/17/18 09:53 Target Cells Not Reportable 01/17/18 09:53 Tear Drop Cells Not Reportable 01/17/18 09:53 Ovalocytes Few 01/17/18 09:53 Helmet Cells Not Reportable 01/17/18 09:53 [place] Bodies Not Reportable 01/17/18 09:53 [place] Rings Not Reportable 01/17/18 09:53 Constantino Cells Not Reportable 01/17/18 09:53 Bite Cells Not Reportable 01/17/18 09:53 Crenated Cell Not Reportable 01/17/18 09:53 Elliptocytes Not Reportable 01/17/18 09:53 Acanthocytes (Spur) Not Reportable 01/17/18 09:53 Rouleaux Not Reportable 01/17/18 09:53 Hemoglobin C Crystals Not Reportable 01/17/18 09:53 Schistocytes Not Reportable 01/17/18 09:53 Malaria parasites Not Reportable 01/17/18 09:53 [place] Bodies Not Reportable 01/17/18 09:53 Hem Pathologist Commnt No 01/17/18 09:53 PT 13.2 Sec. (12.2-14.9) 01/17/18 09:53 INR 0.95 (0.87-1.13) 01/17/18 09:53 APTT 25.4 Sec. (24.2-36.6) 01/17/18 09:53 Sodium 139 mmol/L (137-145) 01/17/18 09:53 Potassium 4.6 mmol/L (3.6-5.0) 01/17/18 09:53 Chloride 101.3 mmol/L (98-107) 01/17/18 09:53 Carbon Dioxide 29 mmol/L (22-30) 01/17/18 09:53 Anion Gap 13 mmol/L 01/17/18 09:53 BUN 21 mg/dL (9-20) H 01/17/18 09:53 Creatinine 0.4 mg/dL (0.8-1.5) L 01/17/18 09:53 Estimated GFR > 60 ml/min 01/17/18 09:53 BUN/Creatinine Ratio 53 % 01/17/18 09:53 Glucose 90 mg/dL (75-100) 01/17/18 09:53 Calcium 8.9 mg/dL (8.4-10.2) 01/17/18 09:53 Total Bilirubin 0.50 mg/dL (0.1-1.2) 01/17/18 09:53 AST 35 units/L (5-40) 01/17/18 09:53 ALT 47 units/L (7-56) 01/17/18 09:53 Alkaline Phosphatase 94 units/L (35-129) 01/17/18 09:53 Total Creatine Kinase 72 units/L (55-170) 01/17/18 09:53 Troponin T 0.022 ng/mL (0.00-0.029) 01/17/18 09:34 Total Protein 6.6 g/dL (6.3-8.2) 01/17/18 09:53 Albumin 3.7 g/dL (3.9-5) L 01/17/18 09:53 Albumin/Globulin Ratio 1.3 % 01/17/18 09:53 Lipase 52 units/L (13-60) 01/17/18 09:53
[2018-01-19] MEDS ORDERED: SIMPLE SYRUP FEEDTUBE PRN ×2 (13:13)
[2018-01-19] MEDS ORDERED: PANCREAZE DR 10,500 UNIT FEEDTUBE PRN (13:13)
[2018-01-19] MEDS ORDERED: SODIUM BICARBONATE FEEDTUBE PRN (13:13)
--- NOTE | 2018-01-19 13:38 | Anesthesia Consultation ---
Anesthesia Consult and Med Hx Date of service: 01/19/18 - Airway Anesthetic Teeth Evaluation: Poor ROM Head & Neck: Adequate Mental/Hyoid Distance: Adequate Mallampati Class: Class II Intubation Access Assessment: Probably Good - Pre-Operative Health Status ASA Pre-Surgery Classification: ASA4 Proposed Anesthetic Plan: MAC - Pulmonary Hx Asthma: No (unknown) SOB: Yes (acute respiratory failure, resolved) COPD: Yes Hx Pneumonia: Yes - Cardiovascular System Hx Hypertension: Yes - Central Nervous System CVA: Yes (dysphagia, asphasic, right hemiplegia) Hx Psychiatric Problems: No - Gastrointestinal Hx Gastroesophageal Reflux Disease: (dysphagia) - Endocrine Hx Renal Disease: No (BETHEL, resolved) Hx Non-Insulin Dependent Diabetes: Yes - Hematic Hx Anemia: Yes
--- NOTE | 2018-01-19 14:16 | Anesthesia Day of Surgery ---
Anesthesia Day of Surgery - Day of Surgery Patient Examined: Yes Patient H&P Reviewed: Yes Patient is NPO: Yes
[2018-01-19] MEDS ORDERED: DIPRIVAN 10 MG/ML IV ONE (14:30)
[2018-01-19] MEDS ORDERED: WATER FOR IRRIG STERILE IR ONE (14:34)
--- NOTE | 2018-01-19 15:05 | Post Operative Note ---
Pre-op diagnosis: malfunctioning PEG tube Post-op diagnosis: same (old peg tube removed with snare technique; balloon (20 Fr) PEG tube replacement performed. gastritis) Findings: EGD with peg tube replacement 1. Gastritis 2. Peg tube (internal portion) removed with snare 3. Replacement peg tube with balloon 20 Fr tube Procedure: EGD with PEG tube replacement Anesthesia: MAC Surgeon: PAZ FRANK Estimated blood loss: minimal Pathology: none Condition: stable Disposition: floor
--- NOTE | 2018-01-19 15:09 | Operative Report ---
Operative Report Operative Report: Esophagogastroduodenoscopy Procedure Note with PEG tube replacement Date of procedure: 01/19/2018 Endoscopist: Ned Mares Pre-op diagnosis: malfunctioning PEG tube, oropharyngeal dysphagia Post-op diagnosis: successful PEG tube replacement Anesthesia: MAC Complications: No immediate complications Estimated blood loss: minimal Procedure: After consent was obtained by two physicians (no next of kin and given urgent/emergent needs for enteral source for nutrition and medications), the patient was placed in the supine position. The fujinon endoscope was inserted into the patient's mouth under direct vision, and advanced to the 2nd portion of duodenum without difficulty. The patient tolerated the procedure well. The views of the mucosa were good. Patient's vital signs were monitored continuously throughout the procedure. Findings: There was a moderate sized hiatal hernia. The internal portion of the peg tube was visualized. The old peg tube was pushed into the stomach (unable to remove externally when attempted). The peg tube was retrieved with snare and removed. PEG tube replacement was performed with a balloon 20 Fr PEG tube successfully with external bumper at 3 cm. There was mild gastritis (erythematous gastric mucosa). The duodenum appeared normal. Impression: 1. Successful PEG tube replacement as above 2. Gastritis 3. Hiatal hernia Recommendations: -okay to use peg tube for medications -consult nutrition regarding peg tube feedings (can restart in 2-4 hours) -keep abdominal binder on at all times -post-PEG care daily
[2018-01-20] MEDS: NACL 0.9% 1000 ML 1,000 ML IV SCH ×2 (06:17→19:57)
[2018-01-20 09:13] LABS: Hematocrit 43.9 % (35.5-45.6); Hemoglobin 14.6 gm/dl (11.8-15.2)
--- NOTE | 2018-01-20 10:52 | Gastroenterology Progress Note ---
<SUDHIR GIRFFIN - Last Filed: 01/20/18 10:53> Assessment and Plan 1.PEG replacement -s/p EGD with PEG replacement yesterday -PEG site this am w/o s/s of infection or bleeding -bumper offloaded to prevent skin breakdown -tolerating TFs -split gauze dressing PRN -recommend abd binder at all times to prevent pt from pulling out PEG -no further GI recommendations -will sign off, please call if needed Subjective Date of service: 01/20/18 Principal diagnosis: PEG replacement Interval history: Patient resting in bed alert w/o acute distress. PEG site w/o redness, swelling , odor, drainage, or bleeding. Tolerating TFs per nursing. Objective - Constitutional Vitals: Temp Pulse Resp BP Pulse Ox 97.5 F L 68 19 124/78 94 01/20/18 07:41 01/20/18 07:41 01/20/18 07:41 01/20/18 07:41 01/20/18 08:08 General appearance: no acute distress - Respiratory Respiratory: bilateral: CTA (anterior) - Cardiovascular Rhythm: regular Heart Sounds: Present: S1 & S2 - Gastrointestinal General gastrointestinal: Present: soft, non-tender, non-distended, normal bowel sounds, other (+PEG) - Labs CBC & Chem 7: 01/20/18 09:02 01/17/18 09:53 Labs: Laboratory Results - last 24 hr 01/20/18 09:02 Hgb 14.6 Hct 43.9 <PAZ FRANK - Last Filed: 01/22/18 04:51> Assessment and Plan pt seen and examined. agree with note above. will s/o, please call as needed or with questions. Objective - Constitutional Vitals: Temp Pulse Resp BP Pulse Ox 97.4 F L 64 19 111/71 98 01/20/18 15:54 01/20/18 15:54 01/20/18 15:54 01/20/18 15:54 01/20/18 15:54 - Labs CBC & Chem 7: 01/20/18 09:02 01/17/18 09:53
--- NOTE | 2018-01-20 14:05 | Discharge Summary ---
Providers - Providers Date of Admission: 01/17/18 16:24 Date of discharge: 01/20/18 Attending physician: SHAAN KELLEY 01/17/18 16:11 Consult to Physician [CONS] Stat Comment: Consulting Provider: HIEN SMYTH Physician Instructions: Reason For Exam: g-tube replacement 01/19/18 12:30 Consult to Dietitian/Nutrition [CONS] Routine Physician Instructions: Reason For Exam: Reason for Consult: Write/Manage Tube Feeding Primary care physician: FI[facility] Hospitalization Condition: Stable Hospital course: Very pleasant 57-year-old male patient with significant history of hypertension diabetes mellitus COPD, CVA for Left-sided hemiparesis and dysphagia status post PEG was admitted through emergency room for evaluation of PEG tube malfunction. Patient was admitted symptomatically managed Evaluation by GI, Underwent replacement of PEG tube, patient tolerates the procedure well Tolerated the feeds per protocol Today he is comfortable no new events, Vital signs stable Physical examination done by me. Discharge, no new changes Patient is hemodynamically and clinically stable for discharge and transfer back to SNF today Advised to follow aspiration precautions PEG feeds per protocol Discharge diagnosis; --Malfunctioning of PEG tube; replaced --Type 2 diabetes mellitus; stable --Hypertension; controlled --History of CVA with residual weakness Disposition: DC/[place]-03 SNF [facility] Time spent for discharge: 32 min Core Measure Documentation - Palliative Care Palliative Care/ Comfort Measures: Not Applicable - Core Measures Any of the following diagnoses?: none Exam - Constitutional Vitals: Temp Pulse Resp BP Pulse Ox 97.5 F L 68 19 124/78 93 01/20/18 07:41 01/20/18 07:41 01/20/18 07:41 01/20/18 07:41 01/20/18 11:30 General appearance: Present: no acute distress, well-nourished - EENT Eyes: Present: PERRL, EOM intact - Neck Neck: Present: supple, normal ROM - Respiratory Respiratory effort: normal Respiratory: bilateral: diminished, negative: rales, rhonchi, wheezing - Cardiovascular Rhythm: regular Heart Sounds: Present: S1 & S2 - Extremities Extremities: no ischemia, No edema - Abdominal General gastrointestinal: Present: soft, non-tender, non-distended, normal bowel sounds, other (PEG tube in place) - Integumentary Integumentary: Present: clear, warm - Musculoskeletal Musculoskeletal: other (residual weakness) - Psychiatric Psychiatric: other (noncommunicative) - Neurologic Neurologic: other (residual weakness, noncommunicative) Plan Activity: advance as tolerated Diet: other (tube feeding per protocol) Wound: other (PEG care) Additional Instructions: Aspiration precautions Follow up with: PRIMARY CARE, [Primary Care Provider] - 3-5 Days
[2018-01-20 16:00] VITALS: BP 111/71
== END 2018-01-20 20:22 | disposition home or self-care (01) | DRG 394 ==
LOC: ED 07:48 → 3A 16:24
PROVIDERS: ADMIT Internal Medicine; ATTEND Internal Medicine
PROC: 0DH68UZ Insertion of Feeding Device into Stomach, Via Natural or Artificial Opening Endoscopic (ICD-10-PCS; principal; 2018-01-19)
PROC: 0DC68ZZ Extirpation of Matter from Stomach, Via Natural or Artificial Opening Endoscopic (ICD-10-PCS; 2018-01-19)
DX: K94.23 Gastrostomy malfunction (principal); I69.354 Hemiplegia and hemiparesis following cerebral infarction affecting left non-dominant side; I10 Essential (primary) hypertension; E11.9 Type 2 diabetes mellitus without complications; J44.9 Chronic obstructive pulmonary disease, unspecified; I69.320 Aphasia following cerebral infarction; Y83.8 Other surgical procedures as the cause of abnormal reaction of the patient, or of later complication, without mention of misadventure at the time of the procedure; Y92.89 Other specified places as the place of occurrence of the external cause; K29.70 Gastritis, unspecified, without bleeding; R13.12 Dysphagia, oropharyngeal phase; K44.9 Diaphragmatic hernia without obstruction or gangrene; Z79.4 Long term (current) use of insulin
CPT/HCPCS: 36415; 80053; 82550; 83690; 84484; 85007; 85014; 85018; 85025; 85610; 85730; 93005; 93010; 96360; J2704; J7030

== ENCOUNTER 2018-09-23 18:20 | Inpatient (IN) | payer MEDICARE ==
[2018-09-23] MEDS ORDERED: TYLENOL FEEDTUBE ONE (19:18)
--- NOTE | 2018-09-23 19:20 | Emergency Department Report ---
HPI - General Chief Complaint: Altered Mental Status Time Seen by Provider: 09/23/18 18:53 - HPI HPI: Room 23 The patient is a 4-year-old male presenting with chief complaint altered mental status. The patient is a resident at [facility] and reportedly found to be febrile at 101.5 axillary and hypoxic at 85% on room air. Patient is aphasic from previous CVA and does not provide history Location: [See above] Duration: [See above] Quality: [See above] Severity: [See above] Modifying factors: [see above] Context: [see above] Mode of transportation: [not driving] ED Past Medical Hx - Past Medical History Previous Medical History?: Yes Hx Hypertension: Yes Hx CVA: Yes Hx Diabetes: Yes Hx Renal Disease: No (BETHEL, resolved) Hx COPD: Yes - Surgical History Past Surgical History?: No Additional Surgical History: bree - Family History Family history: no significant - Social History Smoking Status: Unknown if ever smoked Substance Use Type: Other - Medications Home Medications: Home Medications Medication Instructions Recorded Confirmed Last Taken Type AtorvaSTATin [Lipitor] 40 mg FEEDTUBE QHS 06/21/16 07/14/18 06/20/16 History Gabapentin [Neurontin] 300 mg FEEDTUBE BID 06/21/16 07/14/18 06/20/16 History Omeprazole 20 mg FEEDTUBE DAILY 06/21/16 07/14/18 06/20/16 History Ascorbic Acid [Vitamin C] 500 mg PO QDAY 07/14/18 07/14/18 Unknown History Aspirin [Adult Aspirin Regimen] 81 mg PO DAILY 07/14/18 07/14/18 Unknown History Ipratropium/Albuterol Sulfate 1 ampul IH Q6HR 07/14/18 07/14/18 Unknown History [DUONEB *Not for PRN Use*] Multivitamin [Multiple Vitamins] 1 each PO DAILY 07/14/18 07/14/18 Unknown History Protein Supplement [Promod] 30 ml PO TID 07/14/18 07/14/18 Unknown History ED Review of Systems ROS: Stated complaint: AMS Other details as noted in HPI Comment: Unobtainable due to pts medical conditions Constitutional: fever Physical Exam - Physical Exam Vital Signs: Vital Signs 09/23/18 18:37 Temperature 101.2 F H Pulse Rate 121 H Respiratory 24 Rate Blood Pressure 117/84 O2 Sat by Pulse 93 Oximetry Physical Exam: GENERAL: The patient is well-developed well-nourished male lying on stretcher nonverbal. [] HEENT: Normocephalic. Atraumatic. NECK: Supple. Trachea midline CHEST/LUNGS: Coarse breath sounds. There is no respiratory distress noted. HEART/CARDIOVASCULAR: Regular. There is tachycardia. There is no gallop rub or murmur. ABDOMEN: Abdomen is soft, nontender. Patient has normal bowel sounds. There is no abdominal distention. SKIN: There is no rash. There is no edema. There is no diaphoresis. NEURO: The patient is awake but aphasic from previous CVA. Patient does not respond verbally or make eye contact. Right hemiplegia from previous CVA MUSCULOSKELETAL: There is no evidence of acute injury. ED Course Vital Signs 09/23/18 18:37 Temperature 101.2 F H Pulse Rate 121 H Respiratory 24 Rate Blood Pressure 117/84 O2 Sat by Pulse 93 Oximetry ED Medical Decision Making - Lab Data Result diagrams: 09/23/18 19:16 09/23/18 19:16 - Radiology Data Radiology results: report reviewed (chest x-ray), image reviewed (chest x-ray) interpreted by me: Chest x-ray-left lower lobe infiltrate. Chest x-ray (read by radiologist)- hypoinflation with appearance of pulmonary consolidation suggestive of pulmonary infiltrate in the left mid and lower lung callaway. Degenerative change his shoulder joints bilaterally and thoracic spine. - Differential Diagnosis pneumonia, influenza, Critical care attestation.: If time is entered above; I have spent that time in minutes in the direct care of this critically ill patient, excluding procedure time. ED Disposition Clinical Impression: Hypoxia, Pneumonia, Fever, Leukocytosis Disposition: OP ADMIT IP TO THIS HOSP Is pt being admited?: Yes Does the pt Need Aspirin: No Condition: Fair Instructions: Bacterial Pneumonia (ED) Time of Disposition: 20:42 (hospitalist paged (Dr Luna))
[2018-09-23 19:56] LABS: Basophils % (Auto) 0.1 % (0.0-1.8); Hematocrit 47.2 % (35.5-45.6); Hemoglobin 15.9 gm/dl (11.8-15.2); Lymphocytes # (Auto) 0.3 K/mm3 (1.2-5.4); Lymphocytes % (Auto) 2.7 % (13.4-35.0); Mean Corpuscular HGB Conc 34 % (32-34); Mean Corpuscular Volume 93 fl (84-94); Monocytes # (Auto) 1.1 K/mm3 (0.0-0.8); Monocytes % (Auto) 8.3 % (0.0-7.3); Platelet Count 128 K/mm3 (140-440); Red Blood Count 5.08 M/mm3 (3.65-5.03); Red Cell Distribution Width 13.4 % (13.2-15.2)
[2018-09-23 20:15] LABS: Albumin 3.3 g/dL (3.9-5); Calcium 8.8 mg/dL (8.4-10.2)
--- NOTE | 2018-09-23 20:35 | XRay Report ---
FINAL REPORT EXAM: XR CHEST 1V AP HISTORY: Altered Mental Status TECHNIQUE: Frontal portable view of the chest Comparison: None FINDINGS: There is bilateral hypoinflation with crowding of the bronchovascular structures. There appears to be pulmonary consolidation in the left mid and lower lung field suggestive of pulmon patrick infiltrate. There is no evidence of pneumothorax or pleural fluid collection. The cardiac silhouette is normal size. The thoracic aorta is tortuous. The bony structures are notable for degenerative change of the shoulder joints bilaterally and of the thoracic spine. Visualization detail of the thoracic spine is limited. IMPRESSION: 1. Hypoinflation with the appearance of pulmonary consolidation suggestive of pulmonary infiltrate in the left mid and lower lung callaway. If further imaging is required, PA and lateral views of the chest or CT chest may be helpful. 2. Degenerative change the shoulder joints bilaterally and thoracic spine.
[2018-09-23] MEDS ORDERED: NACL 0.9% 1000 ML IV ONE (20:37)
[2018-09-23] MEDS: MAXIPIME/NS 2 GM/100 ML 2 GM/100 ML BAG IV SCH (21:34)
[2018-09-23] MEDS ORDERED: SODIUM CHLORIDE FLUSH SYRINGE 10 ML IV PRN (22:36)
[2018-09-23] MEDS ORDERED: TYLENOL PO PRN (22:36)
[2018-09-23] MEDS ORDERED: ZOFRAN IV PRN (22:36)
--- NOTE | 2018-09-23 22:38 | History and Physical Report ---
History of Present Illness Date of examination: 09/23/18 Date of admission: 09/23/18 20:43 History of present illness: 58-year-old man with a history of hypertension, diabetes, seizure CVA compl icated by apasia was sent from the skilled nursing for evaluation of seizure, he also was hypoxic on room air, 85%. Review of systems unobtainable PAST MEDICAL HISTORY:hypertension, diabetes, seizure CVA complicated by apasia PAST SURGICAL HISTORY: PEG tube SOCIAL HISTORY: long-term resident FAMILY HISTORY: Unknown Medications and Allergies Allergies Allergy/AdvReac Type Severity Reaction Status Date / Time No Known Allergies Allergy Verified 02/27/15 00:48 Home Medications Medication Instructions Recorded Confirmed Last Taken Type AtorvaSTATin [Lipitor] 40 mg FEEDTUBE QHS 06/21/16 09/24/18 06/20/16 History Gabapentin [Neurontin] 300 mg FEEDTUBE BID 06/21/16 09/24/18 06/20/16 History Omeprazole 20 mg FEEDTUBE DAILY 06/21/16 09/24/18 06/20/16 History Ascorbic Acid [Vitamin C] 500 mg PO QDAY 07/14/18 09/24/18 Unknown History Aspirin [Adult Aspirin Regimen] 81 mg PO DAILY 07/14/18 09/24/18 Unknown History Ipratropium/Albuterol Sulfate 1 ampul IH Q6HR 07/14/18 09/24/18 Unknown History [DUONEB *Not for PRN Use*] Multivitamin [Multiple Vitamins] 1 each PO DAILY 07/14/18 09/24/18 Unknown His tory Protein Supplement [Promod] 30 ml PO TID 07/14/18 09/24/18 Unknown History Active Meds: Active Medications Cefepime HCl (Maxipime/Ns 2 Gm/100 Ml) 2 gm in 100 mls @ 200 mls/hr IV Q8HR [facility]; Protocol Last Admin: 09/23/18 21:34 Dose: 200 mls/hr Documented by: Vancomycin HCl 1,750 mg/ (Sodium Chloride) 535 mls @ 333 mls/hr IV ONCE ONE; Protocol Stop: 09/24/18 00:36 Exam - Physical Exam Narrative exam: General Apperance: The patient lying in bed, breathing comfortable HEENT: Normocephalic, atraumatic. Pupils equally round and reactive to light, EOMI, no sclericterus or JVD or thyromegaly or nodule. , no carotid bruit, mucous membranes moist, no exudate or erythema Heart: S1-S2, regular is rhythm Lungs: Clear to auscultation bilaterally, breathing comfortable Abdomen: Positive bowel sounds, soft, nontender, nondistended, no organomegaly Extremities: No edema cyanosis clubbing Skin: no rash, nodule, warm and dry Neuro: Difficult to assess, aphasic - Constitutional Vitals: Temp Pulse Resp BP Pulse Ox 100.1 F H 94 H 23 106/72 97 09/23/18 20:55 09/23/18 21:52 09/23/18 21:52 09/23/18 21:52 09/23/18 21:52 Results - Labs CBC & Chem 7: 09/24/18 04:14 09/24/18 04:14 Labs: Abnormal lab results 09/23/18 09/23/18 Range/Units 19:16 19:16 WBC 13.0 H (4.5-11.0) K/mm3 RBC 5.08 H (3.65-5.03) M/mm3 Hgb 15.9 H (11.8-15.2) gm/dl Hct 47.2 H (35.5-45.6) % Plt Count 128 L (140-440) K/mm3 Lymph % (Auto) 2.7 L (13.4-35.0) % [place] % (Auto) 8.3 H (0.0-7.3) % Lymph # 0.3 L (1.2-5.4) K/mm3 [place] # 1.1 H (0.0-0.8) K/mm3 Seg Neutrophils % 88.9 H (40.0-70.0) % Seg Neutrophils # 11.5 H (1.8-7.7) K/mm3 BUN 72 H (9-20) mg/dL Glucose 220 H (75-100) mg/dL Albumin 3.3 L (3.9-5) g/dL - Imaging and Cardiology Chest x-ray: report reviewed Assessment and Plan Assessment Sepsis Pneumonia, community-acquired pneumonia hypertension diabetes seizure 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 Thrombocytopenia Plan Admit to medicine Start IV fluid, Zosyn, follow cultures 76 initiate insulin sliding scale Consult dietary for every feed DVT prophylaxis
[2018-09-23] MEDS ORDERED: NACL 0.9% 1000 ML 1,000 ML IV SCH (23:00)
[2018-09-23] MEDS ORDERED: VANCOMYCIN 1,750 MG in NACL 0.9% 500 ML 500 ML IV ONE (23:00)
[2018-09-24 05:05] LABS: Basophils % (Auto) 0.2 % (0.0-1.8); Eosinophils % (Auto) 0.1 % (0.0-4.3); Hematocrit 43.3 % (35.5-45.6); Hemoglobin 14.5 gm/dl (11.8-15.2); Lymphocytes # (Auto) 0.9 K/mm3 (1.2-5.4); Lymphocytes % (Auto) 9.2 % (13.4-35.0); Mean Corpuscular HGB Conc 33 % (32-34); Mean Corpuscular Volume 95 fl (84-94); Monocytes # (Auto) 0.9 K/mm3 (0.0-0.8); Monocytes % (Auto) 9.2 % (0.0-7.3); Red Blood Count 4.55 M/mm3 (3.65-5.03); Red Cell Distribution Width 13.4 % (13.2-15.2)
[2018-09-24 05:19] LABS: Platelet Count 90 K/mm3 (140-440)
[2018-09-24 05:28] LABS: Calcium 7.7 mg/dL (8.4-10.2)
[2018-09-24] MEDS ORDERED: D50W (25GM) Syringe IV PRN (06:23)
[2018-09-24] MEDS: MAXIPIME/NS 2 GM/100 ML 2 GM/100 ML BAG IV SCH (07:03)
[2018-09-24] MEDS ORDERED: ZOSYN/NS 3.375GM/50ML 3.375 GM/50 ML BAG IV SCH (08:00)
[2018-09-24] MEDS: ZOSYN/NS 4.5GM/100ML 4.5 GM/100 ML VIAL IV SCH ×2 (13:21→22:38)
[2018-09-24] MEDS: D5/0.45NS 1,000 ML IV SCH (13:21)
[2018-09-24] MEDS ORDERED: NON-FORMULARY (Omeprazole [Omeprazole] 20 MG) FEEDTUBE SCH (14:45)
[2018-09-24] MEDS: PREVACID SOLUTAB FEEDTUBE SCH (15:13)
--- NOTE | 2018-09-24 15:29 | Progress Note ---
Assessment and Plan Sepsis, due to pneumonia Pneumonia, likely aspiration Respiratory distress with hypoxemia, likely deep respiration resolved hypertension, stable diabetes 2 seizure disorder ? 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 The patient is a resident at [facility] and reportedly found to be febrile at 101.5 axillary and hypoxic at 85% on room air. A chest x-ray in the ER revealed pneumonia, patient was admitted for further evaluation and management. Chest x-ray: 1. Hypoinflation with the appearance of pulmonary consolidation suggestive of pulmonary infiltrate in the left mid and lower lung callaway. If further imaging is required, PA and lateral views of the chest or CT chest may be helpful. 2. Degenerative change the shoulder joints bilaterally and thoracic spine. Physical exam: General Apperance: The patient lying in bed, breathing comfortable HEENT: Normocephalic, atraumatic. Pupils equally round and reactive to light, EOMI, no sclericterus or JVD or thyromegaly or nodule. , no carotid bruit, mucous membranes moist, no exudate or erythema Heart: S1-S2, regular is rhythm Lungs: Clear to auscultation bilaterally, breathing comfortable Abdomen: Positive bowel sounds, soft, nontender, nondistended, no organomegaly Extremities: No edema cyanosis clubbing Skin: no rash, nodule, warm and dry Neuro: Right-sided weakness, aphasic Subjective Date of service: 09/24/18 Interval history: Patient seen and examined. Medical records and medication list reviewed. No acute event overnight noted by the RN. Patient is aphasic with right-sided weakness Discussed plan of care at bedside with RN. Objective - Constitutional Vitals: Vital Signs - 12hr 09/24/18 09/24/18 04:14 12:49 Pulse Rate 97 H O2 Sat by Pulse 94 Oximetry - Labs CBC & Chem 7: 09/24/18 04:14 09/26/18 05:45 Labs: Abnormal lab results 09/23/18 09/23/18 09/24/18 Range/Units 19:16 19:16 04:14 WBC 13.0 H (4.5-11.0) K/mm3 RBC 5.08 H (3.65-5.03) M/mm3 Hgb 15.9 H (11.8-15.2) gm/dl Hct 47.2 H (35.5-45.6) % MCV 95 H (84-94) fl Plt Count 128 L 90 L (140-440) K/mm3 Lymph % (Auto) 2.7 L 9.2 L (13.4-35.0) % [place] % (Auto) 8.3 H 9.2 H (0.0-7.3) % Lymph # 0.3 L 0.9 L (1.2-5.4) K/mm3 [place] # 1.1 H 0.9 H (0.0-0.8) K/mm3 Seg Neutrophils % 88.9 H 81.3 H (40.0-70.0) % Seg Neutrophils # 11.5 H 8.0 H (1.8-7.7) K/mm3 Sodium (137-145) mmol/L Chloride (98-107) mmol/L BUN 72 H (9-20) mg/dL Glucose 220 H (75-100) mg/dL Calcium (8.4-10.2) mg/dL Albumin 3.3 L (3.9-5) g/dL 09/24/18 Range/Units 04:14 WBC (4.5-11.0) K/mm3 RBC (3.65-5.03) M/mm3 Hgb (11.8-15.2) gm/dl Hct (35.5-45.6) % MCV (84-94) fl Plt Count (140-440) K/mm3 Lymph % (Auto) (13.4-35.0) % [place] % (Auto) (0.0-7.3) % Lymph # (1.2-5.4) K/mm3 [place] # (0.0-0.8) K/mm3 Seg Neutrophils % (40.0-70.0) % Seg Neutrophils # (1.8-7.7) K/mm3 Sodium 150 H (137-145) mmol/L Chloride 112.0 H (98-107) mmol/L BUN 75 H (9-20) mg/dL Glucose 148 H (75-100) mg/dL Calcium 7.7 L (8.4-10.2) mg/dL Albumin (3.9-5) g/dL
[2018-09-24] MEDS: VITAMIN C PO SCH (15:58)
[2018-09-24] MEDS: HALFPRIN EC PO SCH (15:58)
--- NOTE | 2018-09-24 17:19 | Cat Scan Report ---
FINAL REPORT EXAM: CT HEAD/BRAIN WO CON HISTORY: AMS TECHNIQUE: 2.5 millimeter axial images from the skullbase to the vertex. Comparison: Head CT dated December 15, 2017 FINDINGS: Low attenuation in the subcortical and deep white matter of the cerebral hemispheres bilaterally most likely represents chronic demyelination. There are areas of encephalomalacia in the thalamus bilaterally, left greater than right, with dystro phic calcification in the left thalamus. There is diminutive size of the midbrain and matthew. There appears to be a chronic infarct in the right cerebellum. There is no evidence of an acute intracranial process, intracranial hemorrhage or mass effect. Ventriculomegaly appears to be concordant with the degree of volume loss. The visualized portions of the orbits, paranasal and mastoid sinuses are notable for mild right maxil jeannine sinus mucosal thickening. The bony structures are unremarkable in appearance. IMPRESSION: 1. No evidence of an acute intracranial process, intracranial hemorrhage or mass effect. No significant change since previous study dated December 15, 2017.
[2018-09-24] MEDS: DUONEB *Not for PRN Use IH SCH ×2 (17:40→22:52)
[2018-09-24] MEDS ORDERED: NON-FORMULARY (Protein Supplement [Promod] 30 ML) PO SCH (20:00)
[2018-09-24] MEDS: SODIUM CHLORIDE FLUSH SYRINGE 10 ML IV SCH (22:37)
[2018-09-24] MEDS: HumuLIN R SUB-Q SCH (22:52)
[2018-09-25] MEDS: DUONEB *Not for PRN Use IH SCH ×5 (00:34→20:36)
[2018-09-25] MEDS: D5/0.45NS 1,000 ML IV SCH ×2 (01:34→10:27)
[2018-09-25 05:22] LABS: Calcium 7.9 mg/dL (8.4-10.2)
[2018-09-25] MEDS: ZOSYN/NS 4.5GM/100ML 4.5 GM/100 ML VIAL IV SCH ×3 (05:49→22:32)
[2018-09-25] MEDS: SODIUM CHLORIDE FLUSH SYRINGE 10 ML IV SCH ×3 (07:51→22:31)
[2018-09-25] MEDS: HumuLIN R SUB-Q SCH ×4 (08:00→22:34)
[2018-09-25] MEDS ORDERED: NON-FORMULARY (Multivitamin [Multiple Vitamins] 1 EACH) PO SCH (10:00)
[2018-09-25] MEDS: THERAGRAN Tab PO SCH (10:29)
[2018-09-25] MEDS: VITAMIN C PO SCH (10:29)
[2018-09-25] MEDS: HALFPRIN EC PO SCH (10:32)
[2018-09-25] MEDS: PREVACID SOLUTAB FEEDTUBE SCH (10:32)
[2018-09-25] MEDS ORDERED: NACL 0.45% 1000 ML 1,000 ML IV SCH (15:00)
[2018-09-25] MEDS: NACL 0.45% 1000 ML 1,000 ML IV SCH ×2 (15:44→22:38)
--- NOTE | 2018-09-25 18:32 | Progress Note ---
Assessment and Plan Sepsis, due to pneumonia LL Pneumonia, likely aspiration Respiratory distress with hypoxemia, likely deep respiration resolved Hypernatremia, likely from dehydration BETHEL on possible CKD - likely vasomotor nephropathy hypertension, stable diabetes 2 seizure disorder ? 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 The patient is a resident at [facility] and reportedly found to be febrile at 101.5 axillary and hypoxic at 85% on room air. A chest x-ray in the ER revealed pneumonia, patient was admitted for further evaluation and management. Chest x-ray: 1. Hypoinflation with the appearance of pulmonary consolidation suggestive of pulmonary infiltrate in the left mid and lower lung callaway. If further imaging is required, PA and lateral views of the chest or CT chest may be helpful. 2. Degenerative change the shoulder joints bilaterally and thoracic spine. Physical exam: General Apperance: The patient lying in bed, breathing comfortable HEENT: Normocephalic, atraumatic. Pupils equally round and reactive to light, EOMI, no sclericterus or JVD or thyromegaly or nodule. , no carotid bruit, mucous membranes moist, no exudate or erythema Heart: S1-S2, regular is rhythm Lungs: Clear to auscultation bilaterally, breathing comfortable Abdomen: Positive bowel sounds, soft, nontender, nondistended, no organomegaly Extremities: No edema cyanosis clubbing Skin: no rash, nodule, warm and dry Neuro: Right-sided weakness, aphasic Subjective Date of service: 09/25/18 Interval history: Patient seen and examined. Medical records and medication list reviewed. No acute event overnight noted by the RN. Patient is aphasic with right-sided weakness, unable to provide any history Discussed plan of care at bedside with RN. Objective - Constitutional Vitals: Vital Signs - 12hr 09/25/18 09/25/18 09/25/18 07:56 09:58 11:47 Temperature 98.9 F 98.6 F Pulse Rate 100 H 93 H 80 Pulse Rate [ Anterior Bilateral Throughout] Respiratory 24 18 Rate Respiratory Rate [Anterior Bilateral Throughout] Blood Pressure 119/81 99/61 [Left] O2 Sat by Pulse 94 96 Oximetry 09/25/18 09/25/18 09/25/18 11:49 11:54 12:03 Temperature Pulse Rate Pulse Rate [ 82 83 Anterior Bilateral Throughout] Respiratory Rate Respiratory 18 18 Rate [Anterior Bilateral Throughout] Blood Pressure [Left] O2 Sat by Pulse 92 Oximetry 09/25/18 16:22 Temperature 98.8 F Pulse Rate 43 L Pulse Rate [ Anterior Bilateral Throughout] Respiratory 20 Rate Respiratory Rate [Anterior Bilateral Throughout] Blood Pressure 130/77 [Left] O2 Sat by Pulse 95 Oximetry - Labs CBC & Chem 7: 09/24/18 04:14 09/26/18 05:45 Labs: Abnormal lab results 09/24/18 09/25/18 09/25/18 Range/Units 22:49 04:18 06:09 Potassium 5.6 H D (3.6-5.0) mmol/L Chloride 113.4 H (98-107) mmol/L Carbon Dioxide 20 L D (22-30) mmol/L BUN 74 H (9-20) mg/dL Creatinine 2.0 H (0.8-1.5) mg/dL Glucose 199 H (75-100) mg/dL POC Glucose 218 H 212 H (70-105) Calcium 7.9 L (8.4-10.2) mg/dL 09/25/18 09/25/18 Range/Units 11:07 15:33 Potassium (3.6-5.0) mmol/L Chloride (98-107) mmol/L Carbon Dioxide (22-30) mmol/L BUN (9-20) mg/dL Creatinine (0.8-1.5) mg/dL Glucose (75-100) mg/dL POC Glucose 257 H 207 H (70-105) Calcium (8.4-10.2) mg/dL
[2018-09-25] MEDS ORDERED: KIONEX PO ONE (19:00)
[2018-09-26] MEDS: DUONEB *Not for PRN Use IH SCH ×4 (02:56→20:45)
[2018-09-26] MEDS: ZOSYN/NS 4.5GM/100ML 4.5 GM/100 ML VIAL IV SCH (05:40)
[2018-09-26 06:16] LABS: Calcium 7.8 mg/dL (8.4-10.2)
[2018-09-26] MEDS: HumuLIN R SUB-Q SCH ×4 (07:21→22:31)
[2018-09-26] MEDS: THERAGRAN Tab PO SCH (10:08)
[2018-09-26] MEDS: HALFPRIN EC PO SCH (10:08)
[2018-09-26] MEDS: VITAMIN C PO SCH (10:08)
[2018-09-26] MEDS: SODIUM CHLORIDE FLUSH SYRINGE 10 ML IV SCH ×2 (10:09→22:38)
[2018-09-26] MEDS: PREVACID SOLUTAB FEEDTUBE SCH (10:09)
--- NOTE | 2018-09-26 11:42 | Consultation ---
History of Present Illness - Reason for Consult Consult date: 09/26/18 acute renal failure - History of Present Illness The patient is a 58 YO male with history significant for Hypertension, Diabetes, Seizure disorder and CVA with aphasia who was sent from the shelter to the ER for evaluation AMS. Patient was not able to provide any history. Reportedly he was found to be febrile at 101.5 F axillary and hypoxic at 85% on room air. Review of systems unobtainable. His creatinine increased from 1.5 on admission to 2.5 today. K was 5.6 yesterday. Nephrology was consulted for further evaluation. Past History Past Medical History: diabetes, hypertension, hyperlipidemia, seizures, stroke Medications and Allergies Allergies Allergy/AdvReac Type Severity Reaction Status Date / Time No Known Allergies Allergy Verified 02/27/15 00:48 Home Medications Medication Instructions Recorded Confirmed Last Taken Type AtorvaSTATin [Lipitor] 40 mg FEEDTUBE QHS 06/21/16 09/24/18 06/20/16 History Gabapentin [Neurontin] 300 mg FEEDTUBE BID 06/21/16 09/24/18 06/20/16 History Omeprazole 20 mg FEEDTUBE DAILY 06/21/16 09/24/18 06/20/16 History Ascorbic Acid [Vitamin C] 500 mg PO QDAY 07/14/18 09/24/18 Unknown History Aspirin [Adult Aspirin Regimen] 81 mg PO DAILY 07/14/18 09/24/18 Unknown History Ipratropium/Albuterol Sulfate 1 ampul IH Q6HR 07/14/18 09/24/18 Unknown History [DUONEB *Not for PRN Use*] Multivitamin [Multiple Vitamins] 1 each PO DAILY 07/14/18 09/24/18 Unknown History Protein Supplement [Promod] 30 ml PO TID 07/14/18 09/24/18 Unknown History Active Meds: Active Medications Acetaminophen (Tylenol) 650 mg PO Q4H PRN PRN Reason: Pain MILD(1-3)/Fever >100.5/WELLER Albuterol/Ipratropium (Duoneb *Not For Prn Use*) 1 ampul IH Q6HRT [facility] Last Admin: 09/26/18 08:12 Dose: 1 ampul Documented by: Ascorbic Acid (Vitamin C) 500 mg PO QDAY [facility] Last Admin: 09/26/18 10:08 Dose: 500 mg Documented by: Aspirin (Halfprin Ec) 81 mg PO DAILY [facility] Last Admin: 09/26/18 10:08 Dose: 81 mg Documented by: Atorvastatin Calcium (Lipitor) 40 mg FEEDTUBE QHS [facility] Last Admin: 09/25/18 22:34 Dose: 40 mg Documented by: Dextrose (D50w (25gm) Syringe) 50 ml IV PRN PRN PRN Reason: Hypoglycemia Piperacillin Sod/Tazobactam Sod (Zosyn/Ns 4.5gm/100ml) 4.5 gm in 100 mls @ 200 mls/hr IV Q8HR [facility] Last Admin: 09/26/18 05:40 Dose: 200 mls/hr Documented by: Sodium Chloride (Nacl 0.45% 1000 Ml) 1,000 mls @ 125 mls/hr IV DIRECT [facility] Last Admin: 09/25/18 22:38 Dose: 125 mls/hr Documented by: Insulin Human Regular (Humulin R) 0 units SUB-Q ACHS [facility]; Protocol Last Admin: 09/26/18 07:21 Dose: Not Given Documented by: Lansoprazole (Prevacid Solutab) 30 mg FEEDTUBE QDAY [facility] Last Admin: 09/26/18 10:09 Dose: 30 mg Documented by: Multivitamins (Theragran Tab) 1 each PO DAILY [facility] Last Admin: 09/26/18 10:08 Dose: 1 each Documented by: Ondansetron HCl (Zofran) 4 mg IV Q8H PRN PRN Reason: Nausea And Vomiting Sodium Chloride (Sodium Chloride Flush Syringe 10 Ml) 10 ml IV BID [facility] Last Admin: 09/26/18 10:09 Dose: 10 ml Documented by: Sodium Chloride (Sodium Chloride Flush Syringe 10 Ml) 10 ml IV PRN PRN PRN Reason: LINE FLUSH Review of Systems ROS unobtainable: due to mental status Exam - Vital Signs Vital signs: Vital Signs Temp Pulse Resp BP Pulse Ox 101.2 F H 121 H 24 117/84 93 09/23/18 18:37 09/23/18 18:37 09/23/18 18:37 09/23/18 18:37 09/23/18 18:37 - General Appearance General appearance: well-developed, appears stated age, other (not in distress) EENT: ATNC, PERRL Neck: Present: trachea midline Respiratory: Clear to Ascultation Heart: regular, S1S2, no murmurs Gastrointestinal: Present: normoactive bowel sounds. Absent: tenderness, distended Integumentary: no rash Neurologic: hemiplegic (right), aphasia Musculoskeletal: Present: other (right UE contractures noted, no edema) Results - Lab Results 09/24/18 04:14 09/26/18 05:45 Most recent lab results Calcium 7.8 mg/dL (8.4-10.2) L 09/26/18 05:45 - Image Kidney/bladder ultrasound: pending Assessment and Plan 1. Acute kidney injury: Suspect Vasomotor / hemdoynamic BETHEL. Urine studies and Renal US ordered. Continue IV fluids. Monitor renal function. 2. FEN: Continue IV fluids, appears volume depleted. Hyperkalemia, improved. 3. Sepsis: Pneumonia. Suspect aspiration. 4. Respiratory distress with hypoxia. 5. Chronic thrombocytopenia.
--- NOTE | 2018-09-26 16:19 | Progress Note ---
Assessment and Plan Sepsis, due to pneumonia LL Pneumonia, likely aspiration Respiratory distress with hypoxemia, likely due to aspiration, resolved Hypernatremia, likely from dehydration BETHEL on possible CKD - likely vasomotor nephropathy hypertension, stable diabetes 2 seizure disorder ? 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 The patient is a resident at [facility] and reportedly found to be febrile at 101.5 axillary and hypoxic at 85% on room air. A chest x-ray in the ER revealed pneumonia, patient was admitted for further evaluation and management. Chest x-ray: 1. Hypoinflation with the appearance of pulmonary consolidation suggestive of pulmonary infiltrate in the left mid and lower lung callaway. If further imaging is required, PA and lateral views of the chest or CT chest may be helpful. 2. Degenerative change the shoulder joints bilaterally and thoracic spine. Physical exam: General Apperance: The patient lying in bed, breathing comfortable HEENT: Normocephalic, atraumatic. Pupils equally round and reactive to light, EOMI, no sclericterus or JVD or thyromegaly or nodule. , no carotid bruit, mucous membranes moist, no exudate or erythema Heart: S1-S2, regular is rhythm Lungs: Clear to auscultation bilaterally, breathing comfortable Abdomen: Positive bowel sounds, soft, nontender, nondistended, no organomegaly Extremities: No edema cyanosis clubbing Skin: no rash, nodule, warm and dry Neuro: Right-sided weakness, aphasic Subjective Date of service: 09/26/18 Interval history: Patient seen and examined. Medical records and medication list reviewed. No acute event overnight noted by the RN. Patient is aphasic with right-sided weakness, unable to provide any history Per RN keeps food in his mouth and not swallowing Discussed plan of care at bedside with RN. Objective - Constitutional Vitals: Vital Signs - 12hr 09/26/18 09/26/18 09/26/18 05:26 05:40 08:08 Temperature 98 F 98.0 F Pulse Rate 78 92 H Pulse Rate [ Anterior Bilateral Throughout] Respiratory 18 20 Rate Respiratory Rate [Anterior Bilateral Throughout] Blood Pressure 160/67 Blood Pressure 131/68 [Left] O2 Sat by Pulse 93 94 Oximetry 09/26/18 09/26/18 09/26/18 08:12 08:20 09:00 Temperature Pulse Rate 95 H Pulse Rate [ 86 90 Anterior Bilateral Throughout] Respiratory Rate Respiratory 18 18 Rate [Anterior Bilateral Throughout] Blood Pressure Blood Pressure [Left] O2 Sat by Pulse Oximetry 09/26/18 09/26/18 09/26/18 10:00 12:00 12:21 Temperature 98.0 F Pulse Rate 87 Pulse Rate [ Anterior Bilateral Throughout] Respiratory 20 Rate Respiratory Rate [Anterior Bilateral Throughout] Blood Pressure 127/76 Blood Pressure [Left] O2 Sat by Pulse 95 95 90 Oximetry 09/26/18 09/26/18 09/26/18 13:37 13:49 16:06 Temperature 98.2 F Pulse Rate 83 Pulse Rate [ 88 88 Anterior Bilateral Throughout] Respiratory 20 Rate Respiratory 18 18 Rate [Anterior Bilateral Throughout] Blood Pressure 104/85 Blood Pressure [Left] O2 Sat by Pulse 99 Oximetry - Labs CBC & Chem 7: 09/24/18 04:14 09/27/18 05:29 Labs: Abnormal lab results 09/25/18 09/26/18 09/26/18 Range/Units 21:36 05:45 06:53 Sodium 150 H (137-145) mmol/L Potassium 3.5 L D (3.6-5.0) mmol/L Chloride 115.2 H (98-107) mmol/L BUN 72 H (9-20) mg/dL Creatinine 2.5 H (0.8-1.5) mg/dL Glucose 154 H (75-100) mg/dL POC Glucose 126 H 137 H (70-105) Calcium 7.8 L (8.4-10.2) mg/dL 09/26/18 Range/Units 12:12 Sodium (137-145) mmol/L Potassium (3.6-5.0) mmol/L Chloride (98-107) mmol/L BUN (9-20) mg/dL Creatinine (0.8-1.5) mg/dL Glucose (75-100) mg/dL POC Glucose 179 H (70-105) Calcium (8.4-10.2) mg/dL
[2018-09-26] MEDS: ZOSYN/NS 2.25 GM/50ML 2.25 GM/50 ML BAG IV SCH (17:32)
[2018-09-26] MEDS: NACL 0.45% 1000 ML 1,000 ML IV SCH (17:35)
[2018-09-26 17:50] LABS: Creatinine,Urine 80.4 mg/dL (0.1-20.0)
[2018-09-26 17:57] LABS: Bacteria,Urine 1+ /HPF (Negative); Bilirubin,Urine NEG (Negative); Blood,Urine MOD (Negative); Color,Urine Yellow (Yellow); Mucus,Urine FEW /HPF; Protein,Urine <15 mg/dL mg/dL (Negative); Urobilinogen,Urine < 2.0 mg/dL (<2.0)
--- NOTE | 2018-09-26 20:11 | Ultrasound Report ---
FINAL REPORT EXAM: US RENAL BILAT HISTORY: Acute renal failure. TECHNIQUE: Ultrasound of the kidneys PRIORS: None. FINDINGS: Examination of the kidneys demonstrates both to be normal in size and have normal cortical echogenici ty and thickness. The right and left kidneys measure 12.3 cm and 13.5 cm in craniocaudal length, res pectively. There is moderate hydronephrosis in the right kidney. No evidence for calculi, left hydron ephrosis, or bilateral solid mass is seen in either kidney. The urinary bladder shows no intraluminal abnormality or wall thickening. IMPRESSION: Moderate right-sided hydronephrosis.
[2018-09-27] MEDS: ZOSYN/NS 2.25 GM/50ML 2.25 GM/50 ML BAG IV SCH ×4 (01:29→17:14)
[2018-09-27] MEDS: DUONEB *Not for PRN Use IH SCH ×4 (02:13→20:40)
[2018-09-27 06:14] LABS: Calcium 7.8 mg/dL (8.4-10.2)
[2018-09-27] MEDS: NACL 0.45% 1000 ML 1,000 ML IV SCH ×2 (06:49→21:48)
--- NOTE | 2018-09-27 09:43 | Progress Note ---
Assessment and Plan 1. Acute kidney injury: Suspect Vasomotor / hemdoynamic BETHEL. Slight improvement in the renal function. Continue IV fluids. Monitor renal function. 2. FEN: Continue IV fluids, appears volume depleted. Hypokalemia, replete K. Hypernatremia, water flushes through PEG tube. 3. Sepsis: Pneumonia. Suspect aspiration. 4. Respiratory distress with hypoxia. 5. Chronic thrombocytopenia. Subjective Date of service: 09/27/18 Interval history: Patient was seen and examined at the bedside. Objective - Vital Signs Vital signs: Vital Signs - 12hr 09/26/18 09/27/18 09/27/18 23:24 02:28 05:13 Temperature 98.0 F 98.0 F Pulse Rate 96 H 90 Pulse Rate [ 87 Anterior Bilateral Throughout] Respiratory 18 17 Rate Respiratory 18 Rate [Anterior Bilateral Throughout] Blood Pressure 133/86 112/75 O2 Sat by Pulse 99 96 Oximetry 09/27/18 07:52 Temperature 98.3 F Pulse Rate 55 L Pulse Rate [ Anterior Bilateral Throughout] Respiratory 20 Rate Respiratory Rate [Anterior Bilateral Throughout] Blood Pressure 132/93 O2 Sat by Pulse 96 Oximetry - General Appearance General appearance: well-developed, appears stated age, other (not in distress) EENT: ATNC, PERRL, mucous membranes dry Respiratory: Present: Clear to Ascultation Cardiology: regular, S1S2, no murmurs Gastrointestinal: normoactive bowel sounds, no tenderness, no distended, other (PEG tube noted) Integumentary: no rash Neurologic: aphasic, hemiplegic (right) Musculoskeletal: other (right UE contracture, no edema) - Lab 09/24/18 04:14 09/27/18 05:29 Most recent lab results Calcium 7.8 mg/dL (8.4-10.2) L 09/27/18 05:29 Urine Creatinine 80.4 mg/dL (0.1-20.0) H 09/26/18 17:33 Urine Sodium 26 mmol/L 09/26/18 17:33 Medications & Allergies - Medications Allergies/Adverse Reactions: Allergies No Known Allergies Allergy (Verified 02/27/15 00:48) Home Medications: Home Medications Medication Instructions Recorded Confirmed Last Taken Type AtorvaSTATin [Lipitor] 40 mg FEEDTUBE QHS 06/21/16 09/24/18 06/20/16 History Gabapentin [Neurontin] 300 mg FEEDTUBE BID 06/21/16 09/24/18 06/20/16 History Omeprazole 20 mg FEEDTUBE DAILY 06/21/16 09/24/18 06/20/16 History Ascorbic Acid [Vitamin C] 500 mg PO QDAY 07/14/18 09/24/18 Unknown History Aspirin [Adult Aspirin Regimen] 81 mg PO DAILY 07/14/18 09/24/18 Unknown History Ipratropium/Albuterol Sulfate 1 ampul IH Q6HR 07/14/18 09/24/18 Unknown History [DUONEB *Not for PRN Use*] Multivitamin [Multiple Vitamins] 1 each PO DAILY 07/14/18 09/24/18 Unknown History Protein Supplement [Promod] 30 ml PO TID 07/14/18 09/24/18 Unknown History Active Medications: Generic Name Dose Route Start Last Admin Trade Name Freq PRN Reason Stop Dose Admin Acetaminophen 650 mg 09/23/18 22:36 Tylenol PO Q4H PRN Pain MILD(1-3)/Fever >100.5/WELLER Albuterol/Ipratropium 1 ampul 09/25/18 20:00 09/27/18 08:06 Duoneb *Not For Prn Use* IH 1 ampul Q6HRT SHIRA Administration Ascorbic Acid 500 mg 09/24/18 15:00 09/26/18 10:08 Vitamin C PO 500 mg QDAY SHIRA Administration Aspirin 81 mg 09/24/18 15:00 09/26/18 10:08 Halfprin Ec PO 81 mg DAILY SHIRA Administration Atorvastatin Calcium 40 mg 09/24/18 22:00 09/26/18 22:38 Lipitor FEEDTUBE 40 mg QHS SHIRA Administration Dextrose 50 ml 09/24/18 06:23 D50w (25gm) Syringe IV PRN PRN Hypoglycemia Sodium Chloride 1,000 mls @ 125 mls/hr 09/25/18 16:00 09/27/18 06:49 Nacl 0.45% 1000 Ml IV 125 mls/hr DIRECT SHIRA Administration Piperacillin Sod/Tazobactam Sod 2.25 gm in 50 mls @ 100 mls/hr 09/26/18 18:00 09/27/18 06:49 Zosyn/Ns 2.25 Gm/50ml IV 100 mls/hr Q6HR SHIRA Administration Potassium Chloride 10 meq in 100 mls @ 100 mls/hr 09/27/18 09:00 Kcl 10meq/100ml IV 09/27/18 11:59 Q1H SHIRA Insulin Human Regular 0 units 09/24/18 22:30 09/26/18 22:31 Humulin R SUB-Q Not Given ACHS SHIRA Protocol Lansoprazole 30 mg 09/24/18 14:50 09/26/18 10:09 Prevacid Solutab FEEDTUBE 30 mg QDAY SHIRA Administration Multivitamins 1 each 09/25/18 10:00 09/26/18 10:08 Theragran Tab PO 1 each DAILY SHIRA Administration Ondansetron HCl 4 mg 09/23/18 22:36 Zofran IV Q8H PRN Nausea And Vomiting Potassium Chloride 40 meq 09/27/18 09:42 K-Dur PO 09/27/18 09:43 ONCE ONE Sodium Chloride 10 ml 09/24/18 10:00 09/26/18 22:38 Sodium Chloride Flush Syringe 10 Ml IV 10 ml BID SHIRA Administration Sodium Chloride 10 ml 09/23/18 22:36 Sodium Chloride Flush Syringe 10 Ml IV PRN PRN LINE FLUSH
[2018-09-27] MEDS: VITAMIN C PO SCH (09:57)
[2018-09-27] MEDS: KCL 10MEQ/100ML 10 MEQ/100 ML BAG IV SCH ×3 (09:57→13:36)
[2018-09-27] MEDS: THERAGRAN Tab PO SCH (09:57)
[2018-09-27] MEDS: HALFPRIN EC PO SCH (09:57)
[2018-09-27] MEDS: SODIUM CHLORIDE FLUSH SYRINGE 10 ML IV SCH ×2 (09:58→21:49)
[2018-09-27] MEDS: PREVACID SOLUTAB FEEDTUBE SCH (10:00)
[2018-09-27] MEDS ORDERED: K-DUR PO NR (10:00)
[2018-09-27] MEDS: HumuLIN R SUB-Q SCH ×4 (10:04→21:48)
--- NOTE | 2018-09-27 15:56 | Progress Note ---
Assessment and Plan Sepsis, due to pneumonia LL Pneumonia, likely aspiration Respiratory distress with hypoxemia, likely due to aspiration, resolved Hypernatremia, likely from dehydration BETHEL on possible CKD - likely vasomotor nephropathy hypertension, stable diabetes 2 seizure disorder ? 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 The patient is a resident at [facility] and reportedly found to be febrile at 101.5 axillary and hypoxic at 85% on room air. A chest x-ray in the ER revealed pneumonia, patient was admitted for further evaluation and management. Chest x-ray: 1. Hypoinflation with the appearance of pulmonary consolidation suggestive of pulmonary infiltrate in the left mid and lower lung call[place]. If further imaging is required, PA and lateral views of the chest or CT chest may be helpful. 2. Degenerative change the shoulder joints bilaterally and thoracic spine. Physical exam: General Apperance: The patient lying in bed, breathing comfortable HEENT: Normocephalic, atraumatic. Pupils equally round and reactive to light, EOMI, no sclericterus or JVD or thyromegaly or nodule. , no carotid bruit, mucous membranes moist, no exudate or erythema Heart: S1-S2, regular is rhythm Lungs: Clear to auscultation bilaterally, breathing comfortable Abdomen: Positive bowel sounds, soft, nontender, nondistended, no organomegaly Extremities: No edema cyanosis clubbing Skin: no rash, nodule, warm and dry Neuro: Right-sided weakness, aphasic Subjective Date of service: 09/27/18 Interval history: Patient seen and examined. Medical records and medication list reviewed. No acute event overnight noted by the RN. Patient is aphasic with right-sided weakness, unable to provide any history Pending speech eval, Discussed plan of care at bedside with RN. Objective - Constitutional Vitals: Vital Signs - 12hr 09/27/18 09/27/18 09/27/18 05:13 07:52 08:00 Temperature 98.0 F 98.3 F Pulse Rate 90 55 L Pulse Rate [ 90 Anterior Bilateral Throughout] Respiratory 17 20 Rate Respiratory 18 Rate [Anterior Bilateral Throughout] Blood Pressure 112/75 132/93 O2 Sat by Pulse 96 96 Oximetry 09/27/18 09/27/18 09/27/18 08:10 10:00 11:54 Temperature 98.3 F Pulse Rate 77 Pulse Rate [ 89 Anterior Bilateral Throughout] Respiratory Rate Respiratory 18 Rate [Anterior Bilateral Throughout] Blood Pressure 133/85 O2 Sat by Pulse 96 96 Oximetry 09/27/18 15:47 Temperature 98.3 F Pulse Rate 88 Pulse Rate [ Anterior Bilateral Throughout] Respiratory 18 Rate Respiratory Rate [Anterior Bilateral Throughout] Blood Pressure 118/79 O2 Sat by Pulse 97 Oximetry - Labs CBC & Chem 7: 09/24/18 04:14 09/28/18 06:13 Labs: Abnormal lab results 09/26/18 09/26/18 09/26/18 Range/Units 16:08 17:33 17:33 Sodium (137-145) mmol/L Potassium (3.6-5.0) mmol/L Chloride (98-107) mmol/L BUN (9-20) mg/dL Creatinine (0.8-1.5) mg/dL Glucose (75-100) mg/dL POC Glucose 142 H (70-105) Calcium (8.4-10.2) mg/dL Urine WBC (Auto) 131.0 H (0.0-6.0) /HPF Urine Creatinine 80.4 H (0.1-20.0) mg/dL 09/26/18 09/27/18 Range/Units 21:04 05:29 Sodium 151 H (137-145) mmol/L Potassium 3.1 L (3.6-5.0) mmol/L Chloride 116.6 H (98-107) mmol/L BUN 63 H (9-20) mg/dL Creatinine 2.4 H (0.8-1.5) mg/dL Glucose 119 H (75-100) mg/dL POC Glucose 147 H (70-105) Calcium 7.8 L (8.4-10.2) mg/dL Urine WBC (Auto) (0.0-6.0) /HPF Urine Creatinine (0.1-20.0) mg/dL
[2018-09-28] MEDS: ZOSYN/NS 2.25 GM/50ML 2.25 GM/50 ML BAG IV SCH ×4 (00:31→18:23)
[2018-09-28 06:54] LABS: Calcium 7.8 mg/dL (8.4-10.2)
--- NOTE | 2018-09-28 08:15 | Progress Note ---
Assessment and Plan 1. Acute kidney injury: Suspect Vasomotor / hemdoynamic BETHEL. No improvement in the renal function. Continue IV fluids. Monitor renal function. 2. FEN: Continue IV fluids, appears volume depleted. Hypokalemia, replete K. Hypernatremia, water flushes through PEG tube. 3. Right sided Hydronephrosis: Urology was consulted yesterday. 4. Sepsis: Pneumonia. Suspect aspiration. 5. Respiratory distress with hypoxia. 6. Chronic thrombocytopenia. Subjective Date of service: 09/28/18 Interval history: Patient was seen and examined at the bedside. Objective - Vital Signs Vital signs: Vital Signs - 12hr 09/27/18 09/27/18 09/27/18 20:41 20:50 23:57 Temperature 98.4 F Pulse Rate 91 H Pulse Rate [ 91 H 93 H Anterior Bilateral Throughout] Respiratory 17 Rate Respiratory 14 17 Rate [Anterior Bilateral Throughout] Blood Pressure 128/87 O2 Sat by Pulse 95 Oximetry - General Appearance General appearance: well-developed, appears stated age, other (not in distress) EENT: ATNC Neck: supple Respiratory: Present: Clear to Ascultation Cardiology: regular, S1S2, no murmurs Gastrointestinal: normoactive bowel sounds, no tenderness, no distended, other (PEG tube noted) Integumentary: no rash Neurologic: hemiplegic (right side), aphasia Musculoskeletal: other (no edema) - Lab 09/24/18 04:14 09/29/18 05:25 Most recent lab results Calcium 7.8 mg/dL (8.4-10.2) L 09/28/18 06:13 Phosphorus 3.10 mg/dL (2.5-4.5) 09/28/18 06:13 Magnesium 2.50 mg/dL (1.7-2.3) H 09/28/18 06:13 Urine Creatinine 80.4 mg/dL (0.1-20.0) H 09/26/18 17:33 Urine Sodium 26 mmol/L 09/26/18 17:33 Medications & Allergies - Medications Allergies/Adverse Reactions: Allergies No Known Allergies Allergy (Verified 02/27/15 00:48) Home Medications: Home Medications Medication Instructions Recorded Confirmed Last Taken Type AtorvaSTATin [Lipitor] 40 mg FEEDTUBE QHS 06/21/16 09/24/18 06/20/16 History Gabapentin [Neurontin] 300 mg FEEDTUBE BID 06/21/16 09/24/18 06/20/16 History Omeprazole 20 mg FEEDTUBE DAILY 06/21/16 09/24/18 06/20/16 History Ascorbic Acid [Vitamin C] 500 mg PO QDAY 07/14/18 09/24/18 Unknown History Aspirin [Adult Aspirin Regimen] 81 mg PO DAILY 07/14/18 09/24/18 Unknown History Ipratropium/Albuterol Sulfate 1 ampul IH Q6HR 07/14/18 09/24/18 Unknown History [DUONEB *Not for PRN Use*] Multivitamin [Multiple Vitamins] 1 each PO DAILY 07/14/18 09/24/18 Unknown History Protein Supplement [Promod] 30 ml PO TID 07/14/18 09/24/18 Unknown History Active Medications: Generic Name Dose Route Start Last Admin Trade Name Freq PRN Reason Stop Dose Admin Acetaminophen 650 mg 09/23/18 22:36 Tylenol PO Q4H PRN Pain MILD(1-3)/Fever >100.5/WELLER Albuterol/Ipratropium 1 ampul 09/25/18 20:00 09/27/18 20:40 Duoneb *Not For Prn Use* IH 1 ampul Q6HRT SHIRA Administration Ascorbic Acid 500 mg 09/24/18 15:00 09/27/18 09:57 Vitamin C PO 500 mg QDAY SHIRA Administration Aspirin 81 mg 09/24/18 15:00 09/27/18 09:57 Halfprin Ec PO 81 mg DAILY SHIRA Administration Atorvastatin Calcium 40 mg 09/24/18 22:00 09/27/18 21:48 Lipitor FEEDTUBE 40 mg QHS SHIRA Administration Dextrose 50 ml 09/24/18 06:23 D50w (25gm) Syringe IV PRN PRN Hypoglycemia Sodium Chloride 1,000 mls @ 125 mls/hr 09/25/18 16:00 09/27/18 21:48 Nacl 0.45% 1000 Ml IV 125 mls/hr DIRECT SHIRA Administration Piperacillin Sod/Tazobactam Sod 2.25 gm in 50 mls @ 100 mls/hr 09/26/18 18:00 09/28/18 05:41 Zosyn/Ns 2.25 Gm/50ml IV 100 mls/hr Q6HR SHIRA Administration Insulin Human Regular 0 units 09/24/18 22:30 09/27/18 21:48 Humulin R SUB-Q 3 units ACHS SHIRA Administration Protocol Lansoprazole 30 mg 09/24/18 14:50 09/27/18 10:00 Prevacid Solutab FEEDTUBE 30 mg QDAY SHIRA Administration Multivitamins 1 each 09/25/18 10:00 09/27/18 09:57 Theragran Tab PO 1 each DAILY SHIRA Administration Ondansetron HCl 4 mg 09/23/18 22:36 Zofran IV Q8H PRN Nausea And Vomiting Sodium Chloride 10 ml 09/24/18 10:00 09/27/18 21:49 Sodium Chloride Flush Syringe 10 Ml IV 10 ml BID SHIRA Administration Sodium Chloride 10 ml 09/23/18 22:36 Sodium Chloride Flush Syringe 10 Ml IV PRN PRN LINE FLUSH
[2018-09-28] MEDS: HumuLIN R SUB-Q SCH ×4 (08:22→23:17)
[2018-09-28] MEDS ORDERED: K-DUR PO ONE (09:00)
[2018-09-28] MEDS: DUONEB *Not for PRN Use IH SCH ×4 (09:09→21:35)
[2018-09-28] MEDS: HALFPRIN EC PO SCH (10:31)
[2018-09-28] MEDS: PREVACID SOLUTAB FEEDTUBE SCH (10:31)
[2018-09-28] MEDS: VITAMIN C PO SCH (10:31)
[2018-09-28] MEDS: THERAGRAN Tab PO SCH (10:31)
[2018-09-28] MEDS: SODIUM CHLORIDE FLUSH SYRINGE 10 ML IV SCH ×2 (10:39→23:17)
--- NOTE | 2018-09-28 15:23 | Progress Note ---
Assessment and Plan Sepsis, due to pneumonia LL Pneumonia, likely aspiration Respiratory distress with hypoxemia, likely due to aspiration, resolved Hypernatremia, likely from dehydration BETHEL on possible CKD - likely vasomotor nephropathy Right hydronephrosis hypertension, stable diabetes 2 seizure disorder ? 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 The patient is a resident at [facility] and reportedly found to be febrile at 101.5 axillary and hypoxic at 85% on room air. A chest x-ray in the ER revealed pneumonia, patient was admitted for further evaluation and management. Chest x-ray: 1. Hypoinflation with the appearance of pulmonary consolidation suggestive of pulmonary infiltrate in the left mid and lower lung callaway. If further imaging is required, PA and lateral views of the chest or CT chest may be helpful. 2. Degenerative change the shoulder joints bilaterally and thoracic spine. Physical exam: General Apperance: The patient lying in bed, breathing comfortable HEENT: Normocephalic, atraumatic. Pupils equally round and reactive to light, EOMI, no sclericterus or JVD or thyromegaly or nodule. , no carotid bruit, mucous membranes moist, no exudate or erythema Heart: S1-S2, regular is rhythm Lungs: Clear to auscultation bilaterally, breathing comfortable Abdomen: Positive bowel sounds, soft, nontender, nondistended, no organomegaly Extremities: No edema cyanosis clubbing Skin: no rash, nodule, warm and dry Neuro: Right-sided weakness, aphasic Subjective Date of service: 09/28/18 Interval history: Patient seen and examined. Medical records and medication list reviewed. No acute event overnight noted by the RN. Patient is aphasic with right-sided weakness, unable to provide any history Pending speech eval, Discussed plan of care at bedside with RN. Objective - Constitutional Vitals: Vital Signs - 12hr 09/28/18 09/28/18 04:55 08:38 Temperature 98.1 F 98.3 F Pulse Rate 97 H 89 Respiratory 17 18 Rate Blood Pressure 115/71 143/90 O2 Sat by Pulse 93 95 Oximetry - Labs CBC & Chem 7: 09/29/18 07:53 09/29/18 05:25 Labs: Abnormal lab results 09/27/18 09/27/18 09/28/18 Range/Units 15:51 21:23 06:13 Sodium 150 H (137-145) mmol/L Potassium 3.5 L (3.6-5.0) mmol/L Chloride 114.8 H (98-107) mmol/L Carbon Dioxide 21 L (22-30) mmol/L BUN 61 H (9-20) mg/dL Creatinine 2.6 H (0.8-1.5) mg/dL POC Glucose 155 H 185 H (70-105) Calcium 7.8 L (8.4-10.2) mg/dL Magnesium 2.50 H (1.7-2.3) mg/dL
[2018-09-28] MEDS: NACL 0.45% 1000 ML 1,000 ML IV SCH (16:03)
[2018-09-29] MEDS: ZOSYN/NS 2.25 GM/50ML 2.25 GM/50 ML BAG IV SCH ×5 (00:56→23:23)
[2018-09-29] MEDS: NACL 0.45% 1000 ML 1,000 ML IV SCH ×2 (02:58→15:10)
[2018-09-29] MEDS: DUONEB *Not for PRN Use IH SCH ×4 (03:30→22:15)
[2018-09-29 06:07] LABS: Calcium 7.8 mg/dL (8.4-10.2)
[2018-09-29] MEDS: HumuLIN R SUB-Q SCH ×4 (08:00→22:55)
[2018-09-29 08:10] LABS: Hematocrit 40.8 % (35.5-45.6); Hemoglobin 13.4 gm/dl (11.8-15.2); Mean Corpuscular HGB Conc 33 % (32-34); Mean Corpuscular Volume 96 fl (84-94); Red Blood Count 4.27 M/mm3 (3.65-5.03); Red Cell Distribution Width 13.1 % (13.2-15.2)
[2018-09-29 09:12] LABS: Platelet Count 94 K/mm3 (140-440)
--- NOTE | 2018-09-29 09:24 | Progress Note ---
Assessment and Plan 1. Acute kidney injury: No improvement in the renal function. Patient was found to have distended bladder. BETHEL in the setting of obstructive Uropathy. S/p Tijer[place]. Continue IV fluids. Monitor renal function. 2. FEN: Continue IV fluids. Hypernatremia, water flushes through PEG tube. 3. Bilateral Hydronephrosis: Secondary to bladder outlet obstruction. S/p Tijer[place]. D/w Urology. 4. Sepsis: Pneumonia. Suspect aspiration. 5. Respiratory distress with hypoxia. 6. Chronic thrombocytopenia. Subjective Date of service: 09/29/18 Interval history: Patient was seen and examined at the bedside. Objective - Vital Signs Vital signs: Vital Signs - 12hr 09/28/18 09/28/18 09/28/18 21:35 21:45 23:45 Temperature 98.4 F Pulse Rate Pulse Rate [ 87 85 Anterior Bilateral Throughout] Respiratory 18 Rate Respiratory 18 18 Rate [Anterior Bilateral Throughout] Blood Pressure 134/82 O2 Sat by Pulse Oximetry 09/29/18 09/29/18 09/29/18 03:30 03:40 05:59 Temperature 98.0 F Pulse Rate 95 H Pulse Rate [ 86 88 Anterior Bilateral Throughout] Respiratory 18 Rate Respiratory 18 18 Rate [Anterior Bilateral Throughout] Blood Pressure 123/90 O2 Sat by Pulse 95 Oximetry 09/29/18 09/29/18 07:44 08:58 Temperature 98.4 F Pulse Rate 102 H 95 H Pulse Rate [ Anterior Bilateral Throughout] Respiratory 20 Rate Respiratory Rate [Anterior Bilateral Throughout] Blood Pressure 134/89 O2 Sat by Pulse 95 Oximetry - General Appearance General appearance: well-developed, appears stated age, other (not in distress) EENT: ATNC, PERRL Neck: supple Respiratory: Present: Clear to Ascultation Cardiology: regular, S1S2, no murmurs Gastrointestinal: normoactive bowel sounds, tenderness, distended, other (enlarged palpable bladder) Integumentary: ulcer (right foot) Neurologic: hemiplegic (right side), aphasia Musculoskeletal: other (no edema) - Lab 09/29/18 07:53 09/29/18 05:25 Most recent lab results Calcium 7.8 mg/dL (8.4-10.2) L 09/29/18 05:25 Phosphorus 3.10 mg/dL (2.5-4.5) 09/28/18 06:13 Magnesium 2.50 mg/dL (1.7-2.3) H 09/28/18 06:13 Urine Creatinine 80.4 mg/dL (0.1-20.0) H 09/26/18 17:33 Urine Sodium 26 mmol/L 09/26/18 17:33 Medications & Allergies - Medications Allergies/Adverse Reactions: Allergies No Known Allergies Allergy (Verified 02/27/15 00:48) Home Medications: Home Medications Medication Instructions Recorded Confirmed Last Taken Type AtorvaSTATin [Lipitor] 40 mg FEEDTUBE QHS 06/21/16 09/24/18 06/20/16 History Gabapentin [Neurontin] 300 mg FEEDTUBE BID 06/21/16 09/24/18 06/20/16 History Omeprazole 20 mg FEEDTUBE DAILY 06/21/16 09/24/18 06/20/16 History Ascorbic Acid [Vitamin C] 500 mg PO QDAY 07/14/18 09/24/18 Unknown History Aspirin [Adult Aspirin Regimen] 81 mg PO DAILY 07/14/18 09/24/18 Unknown History Ipratropium/Albuterol Sulfate 1 ampul IH Q6HR 07/14/18 09/24/18 Unknown History [DUONEB *Not for PRN Use*] Multivitamin [Multiple Vitamins] 1 each PO DAILY 07/14/18 09/24/18 Unknown History Protein Supplement [Promod] 30 ml PO TID 07/14/18 09/24/18 Unknown History Active Medications: Generic Name Dose Route Start Last Admin Trade Name Freq PRN Reason Stop Dose Admin Acetaminophen 650 mg 09/23/18 22:36 Tylenol PO Q4H PRN Pain MILD(1-3)/Fever >100.5/WELLER Albuterol/Ipratropium 1 ampul 09/25/18 20:00 09/29/18 03:30 Duoneb *Not For Prn Use* IH 1 ampul Q6HRT SHIRA Administration Ascorbic Acid 500 mg 09/24/18 15:00 09/28/18 10:31 Vitamin C PO 500 mg QDAY SHIRA Administration Aspirin 81 mg 09/24/18 15:00 09/28/18 10:31 Halfprin Ec PO 81 mg DAILY SHIRA Administration Atorvastatin Calcium 40 mg 09/24/18 22:00 09/28/18 23:16 Lipitor FEEDTUBE 40 mg QHS SHIRA Administration Dextrose 50 ml 09/24/18 06:23 D50w (25gm) Syringe IV PRN PRN Hypoglycemia Sodium Chloride 1,000 mls @ 125 mls/hr 09/25/18 16:00 09/29/18 02:58 Nacl 0.45% 1000 Ml IV 125 mls/hr DIRECT SHIRA Administration Piperacillin Sod/Tazobactam Sod 2.25 gm in 50 mls @ 100 mls/hr 09/26/18 18:00 09/29/18 08:01 Zosyn/Ns 2.25 Gm/50ml IV Infused Q6HR SHIRA Infusion Insulin Human Regular 0 units 09/24/18 22:30 09/29/18 08:00 Humulin R SUB-Q Not Given ACHS SHIRA Protocol Lansoprazole 30 mg 09/24/18 14:50 09/28/18 10:31 Prevacid Solutab FEEDTUBE 30 mg QDAY SHIRA Administration Multivitamins 1 each 09/25/18 10:00 09/28/18 10:31 Theragran Tab PO 1 each DAILY SHIRA Administration Ondansetron HCl 4 mg 09/23/18 22:36 Zofran IV Q8H PRN Nausea And Vomiting Sodium Chloride 10 ml 09/24/18 10:00 09/28/18 23:17 Sodium Chloride Flush Syringe 10 Ml IV 10 ml BID SHIRA Administration Sodium Chloride 10 ml 09/23/18 22:36 Sodium Chloride Flush Syringe 10 Ml IV PRN PRN LINE FLUSH
[2018-09-29] MEDS: SODIUM CHLORIDE FLUSH SYRINGE 10 ML IV SCH ×2 (10:00→21:45)
[2018-09-29] MEDS: HALFPRIN EC PO SCH (10:00)
--- NOTE | 2018-09-29 12:48 | Consultation ---
History of Present Illness - Reason for Consult Consult date: 09/29/18 - History of Present Illness Brief history: 58-year-old male with history of CVA resulting in aphasia and right-sided hemiparesis [facility] with chief complaint altered mental sta tus. The patient is a resident at [facility] and reportedly found to be febrile at 101.5 axillary and hypoxic at 85% on room air. A chest x-ray in the ER revealed pneumonia, patient was admitted. consult for retention CTAP (09-29-18) + GALLSTONE, BILAT ADRENAL ADENOMAS (1.9CM), BILAT HYDRO, DISTENDED BLADDER (NO SLADE) PT NOW HAS SLADE DRAINING FREDA COLORED URINE Sepsis, due to pneumonia LL Pneumonia, likely aspiration Hypernatremia, likely from dehydration BETHEL on possible CKD - likely vasomotor nephropathy Right hydronephrosis hypertension, stable diabetes 2 seizure disorder ? 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 Right-sided hemiparesis due to CPA Thrombocytopenia, likely chronic Plan home with slade may need suprapubic catheter Past History Past Medical History: diabetes, hypertension, hyperlipidemia, seizures, stroke Medications and Allergies Allergies Allergy/AdvReac Type Severity Reaction Status Date / Time No Known Allergies Allergy Verified 02/27/15 00:48 Home Medications Medication Instructions Recorded Confirmed Last Taken Type AtorvaSTATin [Lipitor] 40 mg FEEDTUBE QHS 06/21/16 09/24/18 06/20/16 History Gabapentin [Neurontin] 300 mg FEEDTUBE BID 06/21/16 09/24/18 06/20/16 History Omeprazole 20 mg FEEDTUBE DAILY 06/21/16 09/24/18 06/20/16 History Ascorbic Acid [Vitamin C] 500 mg PO QDAY 07/14/18 09/24/18 Unknown History Aspirin [Adult Aspirin Regimen] 81 mg PO DAILY 07/14/18 09/24/18 Unknown History Ipratropium/Albuterol Sulfate 1 ampul IH Q6HR 07/14/18 09/24/18 Unknown History [DUONEB *Not for PRN Use*] Multivitamin [Multiple Vitamins] 1 each PO DAILY 07/14/18 09/24/18 Unknown History Protein Supplement [Promod] 30 ml PO TID 07/14/18 09/24/18 Unknown History Active Meds: Active Medications Acetaminophen (Tylenol) 650 mg PO Q4H PRN PRN Reason: Pain MILD(1-3)/Fever >100.5/WELLER Albuterol/Ipratropium (Duoneb *Not For Prn Use*) 1 ampul IH Q6HRT [facility] Last Admin: 09/29/18 10:55 Dose: Not Given Documented by: Ascorbic Acid (Vitamin C) 500 mg PO QDAY [facility] Last Admin: 09/28/18 10:31 Dose: 500 mg Documented by: Aspirin (Halfprin Ec) 81 mg PO DAILY [facility] Last Admin: 09/28/18 10:31 Dose: 81 mg Documented by: Atorvastatin Calcium (Lipitor) 40 mg FEEDTUBE QHS [facility] Last Admin: 09/28/18 23:16 Dose: 40 mg Documented by: Dextrose (D50w (25gm) Syringe) 50 ml IV PRN PRN PRN Reason: Hypoglycemia Sodium Chloride (Nacl 0.45% 1000 Ml) 1,000 mls @ 125 mls/hr IV DIRECT [facility] Last Admin: 09/29/18 02:58 Dose: 125 mls/hr Documented by: Piperacillin Sod/Tazobactam Sod (Zosyn/Ns 2.25 Gm/50ml) 2.25 gm in 50 mls @ 100 mls/hr IV Q6HR [facility] Last Infusion: 09/29/18 08:01 Dose: Infused Documented by: Insulin Human Regular (Humulin R) 0 units SUB-Q ACHS [facility]; Protocol Last Admin: 09/29/18 08:00 Dose: Not Given Documented by: Lansoprazole (Prevacid Solutab) 30 mg FEEDTUBE QDAY [facility] Last Admin: 09/28/18 10:31 Dose: 30 mg Documented by: Multivitamins (Theragran Tab) 1 each PO DAILY [facility] Last Admin: 09/28/18 10:31 Dose: 1 each Documented by: Ondansetron HCl (Zofran) 4 mg IV Q8H PRN PRN Reason: Nausea And Vomiting Sodium Chloride (Sodium Chloride Flush Syringe 10 Ml) 10 ml IV BID [facility] Last Admin: 09/28/18 23:17 Dose: 10 ml Documented by: Sodium Chloride (Sodium Chloride Flush Syringe 10 Ml) 10 ml IV PRN PRN PRN Reason: LINE FLUSH Exam - Constitutional Vitals: Temp Pulse Resp BP Pulse Ox 98.4 F 95 H 20 134/89 95 09/29/18 08:58 09/29/18 08:58 09/29/18 08:58 09/29/18 08:58 09/29/18 08:58 Results - Labs CBC & Chem 7: 09/29/18 07:53 09/29/18 05:25 Labs: Abnormal lab results 09/29/18 09/29/18 Range/Units 05:25 07:53 MCV 96 H (84-94) fl RDW 13.1 L (13.2-15.2) % Plt Count 94 L (140-440) K/mm3 Sodium 148 H (137-145) mmol/L Chloride 115.9 H (98-107) mmol/L Carbon Dioxide 17 L (22-30) mmol/L BUN 59 H (9-20) mg/dL Creatinine 3.2 H (0.8-1.5) mg/dL Calcium 7.8 L (8.4-10.2) mg/dL
--- NOTE | 2018-09-29 12:57 | Cat Scan Report ---
CT ABDOMEN PELVIS WITHOUT CONTRAST: HISTORY: Hydronephrosis seen on ultrasound. COMPARISON: Renal ultrasound dated 09/26/18 . TECHNIQUE: Helical CT in 1.25mm intervals without IV contrast. Sagittal and coronal reconstructions. FINDINGS: Lung bases: Small bilateral layering pleural effusions are identified, left greater than right. The visualized lung bases are adequately aerated otherwise. Minor bibasilar atelectatic changes are noted. Normal heart size. Liver: Unremarkable. Biliary system: A large solitary calcified gallstone measuring 2.1 cm is identified in the gallbladder. No evidence for acute cholecystitis or choledocholithiasis. Pancreas: Normal. Spleen: Mild splenomegaly measures 14.9 x 6.2 cm in axial plane. Kidneys/ureters/bladder: There is mild to moderate bilateral hydronephrosis. There are a few punctate stones in both kidneys. No ureteral stones are identified. The bladder is markedly distended and contains a [place] catheter. Bladder volume is estimated at 2 L. No bladder filling defect or mass is appreciated. Consider [place] catheter dysfunction. Adrenal glands: A 1.9 cm low-density left adrenal lesion is identified. A 1.7 cm low density right adrenal lesion is identified. These probably represent incidental adrenal adenomas. Aorta: Mild distal calcifications. No aneurysm. Intestines: Within normal limits given no oral contrast was administered. A PEG tube is in position. Appendix: Normal. Pelvic viscera: The prostate gland is normal size measuring 4.8 cm in diameter. Ascites: Trace ascites. Adenopathy: None. Musculoskeletal: The bony structures are mildly demineralized with multilevel degenerative change. No fracture or suspicious bony lesion is identified. IMPRESSION: Moderate bilateral hydronephrosis and a markedly distended bladder is evident. No ureteral calculi or obstructing lesion is appreciated. Consider [place] catheter dysfunction. Punctate bilateral renal stones. Large gallstone. Mild splenomegaly. Small bilateral pleural effusions, left greater than right. Trace ascites.
[2018-09-29] MEDS: PREVACID SOLUTAB FEEDTUBE SCH (14:51)
[2018-09-29] MEDS: THERAGRAN Tab PO SCH (14:52)
[2018-09-29] MEDS: VITAMIN C PO SCH (14:52)
--- NOTE | 2018-09-29 16:11 | Progress Note ---
Assessment and Plan Sepsis, due to pneumonia LL Pneumonia, likely aspiration Respiratory distress with hypoxemia, likely due to aspiration, resolved Hypernatremia, likely from dehydration BETHEL on possible CKD - likely vasomotor nephropathy b/l hydronephrosis Bladder distention, likely outlet obstruction vs neurogenic bladder hypertension, stable diabetes 2 seizure disorder ? 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 The patient is a resident at [facility] and reportedly found to be febrile at 101.5 axillary and hypoxic at 85% on room air. A chest x-ray in the ER revealed pneumonia, patient was admitted for further evaluation and management. Chest x-ray: 1. Hypoinflation with the appearance of pulmonary consolidation suggestive of pulmonary infiltrate in the left mid and lower lung callaway. If further imaging is required, PA and lateral views of the chest or CT chest may be helpful. 2. Degenerative change the shoulder joints bilaterally and thoracic spine. Physical exam: General Apperance: The patient lying in bed, breathing comfortable HEENT: Normocephalic, atraumatic. Pupils equally round and reactive to light, EOMI, no sclericterus or JVD or thyromegaly or nodule. , no carotid bruit, mucous membranes moist, no exudate or erythema Heart: S1-S2, regular is rhythm Lungs: Clear to auscultation bilaterally, breathing comfortable Abdomen: Positive bowel sounds, soft, nontender, nondistended, no organomegaly Extremities: No edema cyanosis clubbing Skin: no rash, nodule, warm and dry Neuro: Right-sided weakness, aphasic Subjective Date of service: 09/29/18 Interval history: Patient seen and examined. Medical records and medication list reviewed. No acute event overnight noted by the RN. Patient is aphasic with right-sided weakness, unable to provide any history Pending speech eval, Discussed plan of care at bedside with RN. placed on slade for urinary retention - having good UOP Objective - Constitutional Vitals: Vital Signs - 12hr 09/29/18 09/29/18 09/29/18 05:59 07:44 08:58 Temperature 98.0 F 98.4 F Pulse Rate 95 H 102 H 95 H Respiratory 18 20 Rate Blood Pressure 123/90 134/89 O2 Sat by Pulse 95 95 Oximetry 09/29/18 13:24 Temperature 98.2 F Pulse Rate 91 H Respiratory 18 Rate Blood Pressure 117/85 O2 Sat by Pulse 99 Oximetry - Labs CBC & Chem 7: 09/29/18 07:53 09/30/18 04:39 Labs: Abnormal lab results 09/29/18 09/29/18 Range/Units 05:25 07:53 MCV 96 H (84-94) fl RDW 13.1 L (13.2-15.2) % Plt Count 94 L (140-440) K/mm3 Sodium 148 H (137-145) mmol/L Chloride 115.9 H (98-107) mmol/L Carbon Dioxide 17 L (22-30) mmol/L BUN 59 H (9-20) mg/dL Creatinine 3.2 H (0.8-1.5) mg/dL Calcium 7.8 L (8.4-10.2) mg/dL
[2018-09-30] MEDS: NACL 0.45% 1000 ML 1,000 ML IV SCH ×3 (01:24→17:46)
[2018-09-30] MEDS: DUONEB *Not for PRN Use IH SCH ×4 (02:09→20:03)
[2018-09-30] MEDS: ZOSYN/NS 2.25 GM/50ML 2.25 GM/50 ML BAG IV SCH ×4 (05:18→23:27)
[2018-09-30 05:59] LABS: Calcium 8.3 mg/dL (8.4-10.2)
[2018-09-30] MEDS: HumuLIN R SUB-Q SCH ×4 (06:42→22:02)
[2018-09-30] MEDS: HALFPRIN EC PO SCH (09:57)
[2018-09-30] MEDS: VITAMIN C PO SCH (09:57)
[2018-09-30] MEDS: SODIUM CHLORIDE FLUSH SYRINGE 10 ML IV SCH ×2 (09:57→22:02)
[2018-09-30] MEDS: PREVACID SOLUTAB FEEDTUBE SCH (09:57)
[2018-09-30] MEDS: THERAGRAN Tab PO SCH (09:57)
--- NOTE | 2018-09-30 10:04 | Progress Note ---
Assessment and Plan 1. Acute kidney injury: Patient was found to have distended bladder. BETHEL in the setting of obstructive Uropathy. Renal function is much better. S/p Slade. Continue IV fluids. Monitor renal function. 2. FEN: Continue IV fluids. Hypernatremia, water flushes through PEG tube. 3. Bilateral Hydronephrosis: Secondary to bladder outlet obstruction. S/p Slade. 4. Sepsis: Pneumonia. Suspect aspiration. 5. Respiratory distress with hypoxia. 6. Chronic thrombocytopenia. Subjective Date of service: 09/30/18 Interval history: Patient was seen and examined at the bedside. Objective - Vital Signs Vital signs: Vital Signs - 12hr 09/29/18 09/30/18 09/30/18 23:49 04:03 07:55 Temperature 98.0 F 98.0 F 98.3 F Pulse Rate 80 89 74 Respiratory 18 18 2 L Rate Blood Pressure 99/60 120/75 Blood Pressure 114/75 [Left] O2 Sat by Pulse 97 92 100 Oximetry - General Appearance General appearance: well-developed, appears stated age, other (not in distress) EENT: ATNC, PERRL Neck: supple Respiratory: Present: Clear to Ascultation Cardiology: regular, S1S2, no murmurs Gastrointestinal: normoactive bowel sounds, no tenderness, no distended, other (PEG tube noted, slade catheter) Integumentary: ulcer (right foot) Neurologic: hemiplegic (right side), aphasia Musculoskeletal: other (no edema) - Lab 09/29/18 07:53 09/30/18 04:39 Most recent lab results Calcium 8.3 mg/dL (8.4-10.2) L 09/30/18 04:39 Phosphorus 3.10 mg/dL (2.5-4.5) 09/28/18 06:13 Magnesium 2.50 mg/dL (1.7-2.3) H 09/28/18 06:13 Urine Creatinine 80.4 mg/dL (0.1-20.0) H 09/26/18 17:33 Urine Sodium 26 mmol/L 09/26/18 17:33 Medications & Allergies - Medications Allergies/Adverse Reactions: Allergies No Known Allergies Allergy (Verified 02/27/15 00:48) Home Medications: Home Medications Medication Instructions Recorded Confirmed Last Taken Type AtorvaSTATin [Lipitor] 40 mg FEEDTUBE QHS 06/21/16 09/24/18 06/20/16 History Gabapentin [Neurontin] 300 mg FEEDTUBE BID 06/21/16 09/24/18 06/20/16 History Omeprazole 20 mg FEEDTUBE DAILY 06/21/16 09/24/18 06/20/16 History Ascorbic Acid [Vitamin C] 500 mg PO QDAY 07/14/18 09/24/18 Unknown History Aspirin [Adult Aspirin Regimen] 81 mg PO DAILY 07/14/18 09/24/18 Unknown History Ipratropium/Albuterol Sulfate 1 ampul IH Q6HR 07/14/18 09/24/18 Unknown History [DUONEB *Not for PRN Use*] Multivitamin [Multiple Vitamins] 1 each PO DAILY 07/14/18 09/24/18 Unknown His tory Protein Supplement [Promod] 30 ml PO TID 07/14/18 09/24/18 Unknown History Active Medications: Generic Name Dose Route Start Last Admin Trade Name Freq PRN Reason Stop Dose Admin Acetaminophen 650 mg 09/23/18 22:36 Tylenol PO Q4H PRN Pain MILD(1-3)/Fever >100.5/WELLER Albuterol/Ipratropium 1 ampul 09/25/18 20:00 09/30/18 08:11 Duoneb *Not For Prn Use* IH 1 ampul Q6HRT SHIRA Administration Ascorbic Acid 500 mg 09/24/18 15:00 09/30/18 09:57 Vitamin C PO 500 mg QDAY SHIRA Administration Aspirin 81 mg 09/24/18 15:00 09/30/18 09:57 Halfprin Ec PO 81 mg DAILY SHIRA Administration Atorvastatin Calcium 40 mg 09/24/18 22:00 09/29/18 21:44 Lipitor FEEDTUBE 40 mg QHS SHIRA Administration Dextrose 50 ml 09/24/18 06:23 D50w (25gm) Syringe IV PRN PRN Hypoglycemia Sodium Chloride 1,000 mls @ 125 mls/hr 09/25/18 16:00 09/30/18 09:56 Nacl 0.45% 1000 Ml IV 125 mls/hr DIRECT SHIRA Administration Piperacillin Sod/Tazobactam Sod 2.25 gm in 50 mls @ 100 mls/hr 09/26/18 18:00 09/30/18 05:18 Zosyn/Ns 2.25 Gm/50ml IV 100 mls/hr Q6HR SHIRA Administration Insulin Human Regular 0 units 09/24/18 22:30 09/30/18 06:42 Humulin R SUB-Q Not Given ACHS SHIRA Protocol Lansoprazole 30 mg 09/24/18 14:50 09/30/18 09:57 Prevacid Solutab FEEDTUBE 30 mg QDAY SHIRA Administration Multivitamins 1 each 09/25/18 10:00 09/30/18 09:57 Theragran Tab PO 1 each DAILY SHIRA Administration Ondansetron HCl 4 mg 09/23/18 22:36 Zofran IV Q8H PRN Nausea And Vomiting Sodium Chloride 10 ml 09/24/18 10:00 09/30/18 09:57 Sodium Chloride Flush Syringe 10 Ml IV 10 ml BID SHIRA Administration Sodium Chloride 10 ml 09/23/18 22:36 Sodium Chloride Flush Syringe 10 Ml IV PRN PRN LINE FLUSH
--- NOTE | 2018-09-30 15:39 | Progress Note ---
Assessment and Plan Sepsis, due to pneumonia LL Pneumonia, likely aspiration - cont Zosyn for now Respiratory distress with hypoxemia, likely due to aspiration, resolved Hypernatremia, likely from dehydration - Continue hypotonic IV fluid, BETHEL on possible CKD - likely vasomotor nephropathy vs bladder outlet obstruction - placed on slade, Cr improving - nephrology on board b/l hydronephrosis Bladder distention, likely outlet obstruction vs neurogenic bladder - urology consulted, cont slade, monitor BMP hypertension, stable. cont current meds diabetes 2, SSI seizure disorder ? Not on any AED, cont to monitor 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 Right-sided hemiparesis due to CVA - cont aspirin, statin, supportive care, pureed diet Thrombocytopenia, likely chronic, monitor CBC Brief history: 58-year-old male with history of CVA resulting in aphasia and right-sided hemiparesis presenting from [facility] with chief complaint altered mental status. The patient is a resident at [facility] and reportedly found to be febrile at 101.5 axillary and hypoxic at 85% on room air. A chest x-ray in the ER revealed pneumonia, patient was admitted for further evaluation and management. Chest x-ray: 1. Hypoinflation with the appearance of pulmonary consolidation suggestive of pulmonary infiltrate in the left mid and lower lung callaway. If further imaging is required, PA and lateral views of the chest or CT chest may be helpful. 2. Degenerative change the shoulder joints bilaterally and thoracic spine. Abdominal US: Moderate bilateral hydronephrosis and a markedly distended bladder is evident. No ureteral calculi or obstructing lesion is appreciated. Consider Slade catheter dysfunction. Punctate bilateral renal stones. Large gallstone. Mild splenomegaly. Small bilateral pleural effusions, left greater than right. Trace ascites. Physical exam: General Apperance: The patient lying in bed, breathing comfortable HEENT: Normocephalic, atraumatic. Pupils equally round and reactive to light, EOMI, no sclericterus or JVD or thyromegaly or nodule. , no carotid bruit, mucous membranes moist, no exudate or erythema Heart: S1-S2, regular is rhythm Lungs: Clear to auscultation bilaterally, breathing comfortable Abdomen: Positive bowel sounds, soft, nontender, nondistended, no organomegaly Extremities: No edema cyanosis clubbing Skin: no rash, nodule, warm and dry Neuro: Right-sided weakness, aphasic Subjective Date of service: 09/30/18 Interval history: Patient seen and examined. Medical records and medication list reviewed. No acute event overnight noted by the RN. Patient is aphasic with right-sided weakness, unable to provide any history Discussed plan of care at bedside with RN. placed on slade for urinary retention - having good UOP Objective - Constitutional Vitals: Vital Signs - 12hr 09/30/18 09/30/18 09/30/18 04:03 07:55 08:11 Temperature 98.0 F 98.3 F Pulse Rate 89 74 Pulse Rate [ 71 Anterior Bilateral Throughout] Respiratory 18 2 L Rate Respiratory 18 Rate [Anterior Bilateral Throughout] Blood Pressure 120/75 Blood Pressure 114/75 [Left] O2 Sat by Pulse 92 100 Oximetry 09/30/18 09/30/18 09/30/18 08:21 10:00 13:17 Temperature 98.3 F Pulse Rate 87 Pulse Rate [ 73 Anterior Bilateral Throughout] Respiratory Rate Respiratory 18 Rate [Anterior Bilateral Throughout] Blood Pressure Blood Pressure [Left] O2 Sat by Pulse Oximetry 09/30/18 13:18 Temperature Pulse Rate 77 Pulse Rate [ Anterior Bilateral Throughout] Respiratory 20 Rate Respiratory Rate [Anterior Bilateral Throughout] Blood Pressure 108/69 Blood Pressure [Left] O2 Sat by Pulse 93 Oximetry - Labs CBC & Chem 7: 09/29/18 07:53 10/01/18 05:53 Labs: Abnormal lab results 09/29/18 09/30/18 09/30/18 Range/Units 16:28 04:39 13:19 Sodium 154 H (137-145) mmol/L Chloride 118.5 H (98-107) mmol/L BUN 33 H (9-20) mg/dL Glucose 66 L (75-100) mg/dL POC Glucose 115 H 124 H (70-105) Calcium 8.3 L (8.4-10.2) mg/dL
[2018-10-01] MEDS: ZOSYN/NS 2.25 GM/50ML 2.25 GM/50 ML BAG IV SCH ×3 (05:13→18:37)
[2018-10-01] MEDS: NACL 0.45% 1000 ML 1,000 ML IV SCH (05:13)
[2018-10-01 06:30] LABS: BUN/Creatinine Ratio 24; Blood Urea Nitrogen 17 mg/dL (9-20); Calcium 7.8 mg/dL (8.4-10.2); Hemolysis Index 8
[2018-10-01] MEDS: HumuLIN R SUB-Q SCH ×3 (07:30→16:30)
--- NOTE | 2018-10-01 08:52 | Progress Note ---
Assessment and Plan 1. Acute kidney injury: Patient was found to have distended bladder. BETHEL in the setting of obstructive Uropathy. Renal function has improved. S/p [place]. Monitor renal function. 2. FEN: Continue IV fluids. Hypernatremia, water flushes through PEG tube. 3. Bilateral Hydronephrosis: Secondary to bladder outlet obstruction. S/p [place]. 4. Sepsis: Pneumonia. Suspect aspiration. 5. Respiratory distress with hypoxia. 6. Chronic thrombocytopenia. Subjective Date of service: 10/01/18 Interval history: Patient was seen and examined at the bedside. Objective - Vital Signs Vital signs: Vital Signs - 12hr 09/30/18 09/30/18 10/01/18 22:00 23:11 04:49 Temperature 98.0 F 97.0 F L Pulse Rate 80 71 Respiratory 20 20 18 Rate Respiratory 20 Rate [bree] Blood Pressure 113/73 125/87 O2 Sat by Pulse 98 96 94 Oximetry 10/01/18 07:53 Temperature 97.7 F Pulse Rate 71 Respiratory 18 Rate Respiratory Rate [bree] Blood Pressure 119/67 O2 Sat by Pulse 96 Oximetry - General Appearance General appearance: well-developed, appears stated age, other (not in distress) EENT: ATNC Neck: supple Respiratory: Present: Clear to Ascultation Cardiology: regular, S1S2, no murmurs Gastrointestinal: normoactive bowel sounds, no tenderness, no distended, other (PEG tube noted) Neurologic: hemiplegic (right side), aphasia Musculoskeletal: other (no edema) - Lab 09/29/18 07:53 10/01/18 05:53 Most recent lab results Calcium 7.8 mg/dL (8.4-10.2) L 10/01/18 05:53 Phosphorus 3.10 mg/dL (2.5-4.5) 09/28/18 06:13 Magnesium 2.50 mg/dL (1.7-2.3) H 09/28/18 06:13 Urine Creatinine 80.4 mg/dL (0.1-20.0) H 09/26/18 17:33 Urine Sodium 26 mmol/L 09/26/18 17:33 Medications & Allergies - Medications Allergies/Adverse Reactions: Allergies No Known Allergies Allergy (Verified 02/27/15 00:48) Home Medications: Home Medications Medication Instructions Recorded Confirmed Last Taken Type AtorvaSTATin [Lipitor] 40 mg FEEDTUBE QHS 06/21/16 09/24/18 06/20/16 History Gabapentin [Neurontin] 300 mg FEEDTUBE BID 06/21/16 09/24/18 06/20/16 History Omeprazole 20 mg FEEDTUBE DAILY 06/21/16 09/24/18 06/20/16 History Ascorbic Acid [Vitamin C] 500 mg PO QDAY 07/14/18 09/24/18 Unknown History Aspirin [Adult Aspirin Regimen] 81 mg PO DAILY 07/14/18 09/24/18 Unknown History Ipratropium/Albuterol Sulfate 1 ampul IH Q6HR 07/14/18 09/24/18 Unknown History [DUONEB *Not for PRN Use*] Multivitamin [Multiple Vitamins] 1 each PO DAILY 07/14/18 09/24/18 Unknown History Protein Supplement [Promod] 30 ml PO TID 07/14/18 09/24/18 Unknown History Potassium Chloride [K-Dur] 20 meq PO QDAY #3 tablet 10/01/18 Unknown Rx Active Medications: Generic Name Dose Route Start Last Admin Trade Name Freq PRN Reason Stop Dose Admin Acetaminophen 650 mg 09/23/18 22:36 Tylenol PO Q4H PRN Pain MILD(1-3)/Fever >100.5/WELLER Albuterol/Ipratropium 1 ampul 10/01/18 08:00 Duoneb *Not For Prn Use* IH TIDRT SHIRA Ascorbic Acid 500 mg 09/24/18 15:00 09/30/18 09:57 Vitamin C PO 500 mg QDAY SHIRA Administration Aspirin 81 mg 09/24/18 15:00 09/30/18 09:57 Halfprin Ec PO 81 mg DAILY SHIRA Administration Atorvastatin Calcium 40 mg 09/24/18 22:00 09/30/18 22:02 Lipitor FEEDTUBE 40 mg QHS SHIRA Administration Dextrose 50 ml 09/24/18 06:23 D50w (25gm) Syringe IV PRN PRN Hypoglycemia Sodium Chloride 1,000 mls @ 125 mls/hr 09/25/18 16:00 10/01/18 05:13 Nacl 0.45% 1000 Ml IV 125 mls/hr DIRECT SHIRA Administration Piperacillin Sod/Tazobactam Sod 2.25 gm in 50 mls @ 100 mls/hr 09/26/18 18:00 10/01/18 05:13 Zosyn/Ns 2.25 Gm/50ml IV 100 mls/hr Q6HR SHIRA Administration Insulin Human Regular 0 units 09/24/18 22:30 09/30/18 22:02 Humulin R SUB-Q 3 units ACHS SHIRA Administration Protocol Lansoprazole 30 mg 09/24/18 14:50 09/30/18 09:57 Prevacid Solutab FEEDTUBE 30 mg QDAY SHIRA Administration Multivitamins 1 each 09/25/18 10:00 09/30/18 09:57 Theragran Tab PO 1 each DAILY SHIRA Administration Ondansetron HCl 4 mg 09/23/18 22:36 Zofran IV Q8H PRN Nausea And Vomiting Sodium Chloride 10 ml 09/24/18 10:00 09/30/18 22:02 Sodium Chloride Flush Syringe 10 Ml IV 10 ml BID SHIRA Administration Sodium Chloride 10 ml 09/23/18 22:36 Sodium Chloride Flush Syringe 10 Ml IV PRN PRN LINE FLUSH
[2018-10-01] MEDS: DUONEB *Not for PRN Use IH SCH ×3 (09:29→14:40)
[2018-10-01] MEDS ORDERED: K-DUR PO ONE (10:00)
[2018-10-01] MEDS: VITAMIN C PO SCH (10:51)
[2018-10-01] MEDS: HALFPRIN EC PO SCH (10:51)
[2018-10-01] MEDS: THERAGRAN Tab PO SCH (10:51)
[2018-10-01] MEDS: SODIUM CHLORIDE FLUSH SYRINGE 10 ML IV SCH (10:52)
[2018-10-01] MEDS: PREVACID SOLUTAB FEEDTUBE SCH (10:59)
[2018-10-01 13:18] VITALS: BP 108/73
--- NOTE | 2018-10-01 13:50 | Discharge Summary ---
Providers - Providers Date of Admission: 09/23/18 20:43 Date of discharge: 10/01/18 Attending physician: DARION MAHMOOD 09/25/18 16:01 Consult to Physician [CONS] Routine Comment: Consulting Provider: SIVAN AGUILAR Physician Instructions: Reason For Exam: bethel////////////////////////////////////// 09/26/18 16:19 Speech Therapy Evaluation and Treat [CONS] Routine Reason For Exam: dysphagia 09/27/18 09:43 Consult to Physician [CONS] Routine Comment: Consulting Provider: MICHELE CORDOVA Physician Instructions: Reason For Exam: Right sided Hydronephrosis. Primary care physician: CHOCOLATE TEMPERER Hospitalization Condition: Fair Pertinent studies: Head CT, CXR, Renal US, Abdomen/pelvis US Hospital course: Brief history: 58-year-old male with history of CVA resulting in aphasia and right-sided hemiparesis [facility] with chief complaint altered mental status. The patient is a resident at [facility] and reportedly found to be febrile at 101.5 axillary and hypoxic at 85% on room air. A chest x-ray in the ER revealed pneumonia, patient was admitted for further evaluation and management. Discharge diagnosis and management: Sepsis, due to pneumonia LL Pneumonia, likely aspiration - treated with Zosyn Respiratory distress with hypoxemia, likely due to aspiration, resolved Hypernatremia, likely from dehydration - placed on hypotonic IV fluid, resolved BETHEL on possible CKD - likely vasomotor nephropathy vs bladder outlet obstruction - placed on slade, Cr improved - nephrology was following, renal function stabilized b/l hydronephrosis Bladder distention, likely outlet obstruction vs neurogenic bladder - urology consulted, placed on slade, monitored BMP - will cont outpt follow up Hypertension, stable. will cont current meds following discharge Diabetes 2, Managed with SSI Seizure disorder ? Not on any AED, cont to monitor h/o 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 Right-sided hemiparesis due to CVA - cont aspirin, statin, supportive care, pureed diet Thrombocytopenia, likely chronic, monitor CBC Radiological data: Chest x-ray: 1. Hypoinflation with the appearance of pulmonary consolidation suggestive of pulmonary infiltrate in the left mid and lower lung callaway. If further imaging is required, PA and lateral views of the chest or CT chest may be helpful. 2. Degenerative change the shoulder joints bilaterally and thoracic spine. Abdominal US: Moderate bilateral hydronephrosis and a markedly distended bladder is evident. No ureteral calculi or obstructing lesion is appreciated. Consider Slade catheter dysfunction. Punctate bilateral renal stones. Large gallstone. Mild spleenomegaly. Small bilateral pleural effusions, left greater than right. Trace ascites. Physical exam: General Apperance: The patient lying in bed, breathing comfortable HEENT: Normocephalic, atraumatic. Pupils equally round and reactive to light, EOMI, no sclericterus or JVD or thyromegaly or nodule. , no carotid bruit, mucous membranes moist, no exudate or erythema Heart: S1-S2, regular is rhythm Lungs: Clear to auscultation bilaterally, breathing comfortable Abdomen: Positive bowel sounds, soft, nontender, nondistended, no organomegaly Extremities: No edema cyanosis clubbing Skin: no rash, nodule, warm and dry Neuro: Right-sided weakness, aphasic Disposition: DC/[place]-03 [facility] Time spent for discharge: 34 minutes Core Measure Documentation - Palliative Care Palliative Care/ Comfort Measures: Not Applicable - Core Measures Any of the following diagnoses?: history only Exam - Constitutional Vitals: Temp Pulse Resp BP Pulse Ox 98.5 F 71 16 108/73 93 10/01/18 13:17 10/01/18 13:17 10/01/18 13:17 10/01/18 13:17 10/01/18 13:17 Plan Activity: fall precautions Diet: other (pureed diet and necter thick liquid) Wound: per wound nurse instructions Additional Instructions: f/u with urology in 2 weeks Follow up with: PRIMARY CARE, [Primary Care Provider] - 3-5 Days Prescriptions: Potassium Chloride [K-Dur] 20 meq PO QDAY #3 tablet
== END 2018-10-01 19:00 | DRG 871 ==
LOC: ED 18:20 → 4A 20:43
PROVIDERS: ADMIT Internal Medicine; ATTEND Internal Medicine
DX: A41.9 Sepsis, unspecified organism (principal); J69.0 Pneumonitis due to inhalation of food and vomit; N17.0 Acute kidney failure with tubular necrosis; I69.351 Hemiplegia and hemiparesis following cerebral infarction affecting right dominant side; E87.0 Hyperosmolality and hypernatremia; N13.30 Unspecified hydronephrosis; I10 Essential (primary) hypertension; J44.9 Chronic obstructive pulmonary disease, unspecified; E86.0 Dehydration; N18.9 Chronic kidney disease, unspecified; D69.6 Thrombocytopenia, unspecified; G40.909 Epilepsy, unspecified, not intractable, without status epilepticus; N32.0 Bladder-neck obstruction; E11.9 Type 2 diabetes mellitus without complications; Z79.82 Long term (current) use of aspirin; Z79.899 Other long term (current) drug therapy; I69.320 Aphasia following cerebral infarction
CPT/HCPCS: 36415; 70450; 71045; 74176; 76770; 80048; 80053; 81001; 82140; 82570; 82962; 83735; 84100; 84300; 85025; 85027; 87040; 87116; 87400; 89050; 94640; 94760; 95819; 96365; G0378; A9270-GY; J0692; J1815; J2543; J3370; J3480; J7030; J7040

== ENCOUNTER 2018-11-11 09:29 | Inpatient (IN) | payer MEDICARE ==
[2018-11-11 10:07] LABS: Basophils % (Auto) 0.3 % (0.0-1.8); Hematocrit 40.2 % (35.5-45.6); Hemoglobin 13.9 gm/dl (11.8-15.2); Lymphocytes # (Auto) 0.3 K/mm3 (1.2-5.4); Lymphocytes % (Auto) 2.9 % (13.4-35.0); Mean Corpuscular HGB Conc 35 % (32-34); Mean Corpuscular Volume 91 fl (84-94); Monocytes % (Auto) 9.8 % (0.0-7.3); Platelet Count 160 K/mm3 (140-440)
[2018-11-11 10:28] LABS: Albumin 2.4 g/dL (3.9-5); Calcium 8.6 mg/dL (8.4-10.2)
[2018-11-11 10:58] LABS: Bacteria,Urine 3+ /HPF (Negative); Bilirubin,Urine NEG (Negative); Blood,Urine SM (Negative); Color,Urine Amber (Yellow); Mucus,Urine FEW /HPF; Urobilinogen,Urine < 2.0 mg/dL (<2.0); WBC,Urine > 182.0 /HPF (0.0-6.0)
[2018-11-11] MEDS ORDERED: ROCEPHIN/NS 1 GM/50 ML 1 GM/50 ML BAG IV ONE (11:28)
[2018-11-11] MEDS ORDERED: NACL 0.9% 1000 ML 1,000 ML IV ONE (11:28)
--- NOTE | 2018-11-11 11:53 | XRay Report ---
AP CHEST: HISTORY: Altered mental status, renal failure, rhonchi Right middle lobe and right lower lobe atelectasis have developed since 10/20/18. The right upper lobe and left lung remain clear. Heart size is within normal limits. No acute bony abnormality. IMPRESSION: Right middle and lower lobe atelectasis.
--- NOTE | 2018-11-11 13:23 | Cat Scan Report ---
FINAL REPORT EXAM: CT HEAD/BRAIN WO CON HISTORY: ams TECHNIQUE: CT of the head was performed without intravenous contrast. PRIORS: CT of the head from 09/24/2018. FINDINGS: The ventricles are normal in shape and position. Unchanged dilated ventricles likely related to diffu se cerebral volume loss. Unchanged severe findings of chronic microvascular ischemic disease. No intr acranial hemorrhage, mass, mass effect, midline shift or evidence of acute ischemic infarct. The basi lar cisterns are patent. Mild mucosal thickening of the right maxillary and ethmoid sinuses is likely congestive or inflammato ry. 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 The extracranial soft tissues demonstrate no abnormality. Th e calvarium is intact. Old left medial orbital wall deformity is unchanged. The mastoid air cells are clear. IMPRESSION: 1. No acute intracranial abnormality. 2. Unchanged severe diffuse cerebral volume loss and findings of chronic microvascular ischemic disea se.
--- NOTE | 2018-11-11 13:44 | Cat Scan Report ---
FINAL REPORT EXAM: CT ABDOMEN PELVIS WO CON HISTORY: AMS, SUPRAPUBIC FULLNESS, RENAL FAILURE TECHNIQUE: CT of the abdomen and pelvis was performed without intravenous contrast. Reconstructions were included in the coronal and sagittal planes. PRIORS: None. FINDINGS: Lower thorax: Mild patchy ground-glass opacities are seen in the right middle lobe. There is a focal right lower lobe consolidation. Moderate to severe coronary artery calculi are seen. Liver: The liver is normal in attenuation. No intrahepatic biliary duct dilation. No focal hepatic le sions. Gallbladder/ biliary system: Cholelithiasis is seen. No gallbladder wall thickening or pericholecysti c fluid. The common bile duct appears nondilated. Spleen: No splenic lesions are seen. Pancreas: No pancreatic lesions are seen. No pancreatic duct dilation. Kidneys: There is a simple right inferior pole renal cyst. There is moderate bilateral hydroureterone phrosis. No ureteral calculi are seen. Several small bilateral renal calculi are seen. The largest on the right measures 3 millimeters and is present in the interpolar region. The largest on the left me asures 3 millimeters and is present in the superior pole. Adrenal glands: A nonspecific right adrenal lesion is seen measuring 1.8 centimeters. Nonspecific lef t adrenal lesion is seen measuring 2.3 centimeters. Vasculature: The abdominal aorta is nondilated. Atherosclerotic calculi are seen in the abdominal aor ta. Lymph nodes: No enlarged lymph nodes are seen in the abdomen or pelvis. Bowel, mesentery, peritoneum: No bowel obstruction. No free fluid or free air. The appendix is normal . No colonic diverticulosis. No bowel wall thickening. A percutaneous gastrostomy tube is seen. There is a large amount of retained stool in the rectum. Urinary bladder: There is diffuse, irregular urinary bladder wall thickening. There is a focal massli ke area of wall thickening along left superior urinary bladder wall measuring 2.2 centimeters. Air wi thin the urinary bladder is likely related to presence of the [place] catheter. There is high attenuati on material within the right posterior aspect of the urinary bladder which may represent debris or he morrhage. Pelvis: Normal anatomy is noted. No masses. Abdominal wall: Small bilateral fat containing inguinal hernias are seen. Bones: Degenerative changes are seen in the spine. IMPRESSION: 1. Diffuse, irregular urinary bladder wall thickening which may be related to cystitis versus bladder outlet obstruction or possibly underlying bladder neoplasm especially given the masslike area within the left superior bladder wall. Consider further evaluation with cystoscopy. 2. Small amount of high attenuation material layering within the right posterior urinary bladder may represent infectious material versus hemorrhage. 3. Moderate bilateral hydroureteronephrosis without obstructing ureteral calculus. 4. Bilateral nonobstructing renal calculi. 5. Simple right renal cyst. 6. Large amount of retained stool in the rectum. 7. Cholelithiasis. 8. Right lower lobe consolidation concerning for pneumonia. Right middle lobe opacities also concerni ng for pneumonia versus aspiration. 9. Moderate to severe coronary artery calculi. 10. Nonspecific bilateral adrenal gland lesions could be further assessed on dedicated adrenal CT or MRI.
--- NOTE | 2018-11-11 14:30 | Emergency Department Report ---
ED Altered Mental Status HPI - General Chief Complaint: Altered Mental Status Stated Complaint: ALTERED MENTAL Time Seen by Provider: 11/11/18 11:20 Source: EMS Mode of arrival: Stretcher Limitations: Altered Mental Status, Physical Limitation - History of Present Illness Initial Comments: 58 yo male with a past medical history of CVA with residual deficits, COPD, diabetes, and hypertension presents to the hospital with alteration in mental status. Patient has chronic A. fib secondary to previous CVA but can't follow commands and point to areas of pain or discomfort. Today [facility] reported that he is doing neither today. Patient is unresponsive and unable to follow commands and therefore no witnesses available at this time. - Related Data Home Medications Medication Instructions Recorded Confirmed Last Taken AtorvaSTATin [Lipitor] 40 mg FEEDTUBE QHS 06/21/16 11/11/18 06/20/16 Ascorbic Acid [Vitamin C] 500 mg FEEDTUBE QDAY 07/14/18 11/11/18 Unknown Aspirin [Adult Aspirin Regimen] 81 mg FEEDTUBE DAILY 07/14/18 11/11/18 Unknown Ipratropium/Albuterol Sulfate 1 ampul IH Q6HR 07/14/18 11/11/18 Unknown [DUONEB *Not for PRN Use*] Multivitamin [Multiple Vitamins] 1 each FEEDTUBE DAILY 07/14/18 11/11/18 Unknown Protein Supplement [Promod] 30 ml FEEDTUBE Q8H 07/14/18 11/11/18 Unknown Acetaminophen [Tylenol] 650 mg FEEDTUBE Q4HR PRN 11/11/18 11/11/18 Unknown Gabapentin [Neurontin] 300 mg FEEDTUBE BID 11/11/18 11/11/18 Unknown L. Acidophilus/L.bulgaricus 1 each FEEDTUBE QAM 11/11/18 11/11/18 Unknown [Lactobacillus Tablet] Omeprazole 20 mg FEEDTUBE QAM 11/11/18 11/11/18 Unknown Potassium Chloride 20 meq FEEDTUBE QDAY 11/11/18 11/11/18 Unknown guaiFENesin DM [Robitussin Dm] 10 ml FEEDTUBE Q6HR PRN 11/11/18 11/11/18 Unknown levoFLOXacin [Levaquin TAB] 500 mg FEEDTUBE QDAY 11/11/18 11/11/18 Unknown Allergies Allergy/AdvReac Type Severity Reaction Status Date / Time No Known Allergies Allergy Verified 02/27/15 00:48 ED Review of Systems ROS: Stated complaint: ALTERED MENTAL Other details as noted in HPI Comment: Unobtainable due to pts medical conditions ED Past Medical Hx - Past Medical History Hx Hypertension: Yes Hx CVA: Yes Hx Congestive Heart Failure: No (unknown) Hx Diabetes: Yes Hx Renal Disease: No (BETHEL, resolved) Hx Asthma: No (unknown) Hx COPD: Yes Hx HIV: No - Surgical History Additional Surgical History: bree - Social History Smoking Status: Unknown if ever smoked - Medications Home Medications: Home Medications Medication Instructions Recorded Confirmed Last Taken Type AtorvaSTATin [Lipitor] 40 mg FEEDTUBE QHS 06/21/16 11/11/18 06/20/16 History Ascorbic Acid [Vitamin C] 500 mg FEEDTUBE QDAY 07/14/18 11/11/18 Unknown History Aspirin [Adult Aspirin Regimen] 81 mg FEEDTUBE DAILY 07/14/18 11/11/18 Unknown History Ipratropium/Albuterol Sulfate 1 ampul IH Q6HR 07/14/18 11/11/18 Unknown History [DUONEB *Not for PRN Use*] Multivitamin [Multiple Vitamins] 1 each FEEDTUBE DAILY 07/14/18 11/11/18 Unknown History Protein Supplement [Promod] 30 ml FEEDTUBE Q8H 07/14/18 11/11/18 Unknown History Acetaminophen [Tylenol] 650 mg FEEDTUBE Q4HR PRN 11/11/18 11/11/18 Unknown History Gabapentin [Neurontin] 300 mg FEEDTUBE BID 11/11/18 11/11/18 Unknown History L. Acidophilus/L.bulgaricus 1 each FEEDTUBE QAM 11/11/18 11/11/18 Unknown Hist ory [Lactobacillus Tablet] Omeprazole 20 mg FEEDTUBE QAM 11/11/18 11/11/18 Unknown History Potassium Chloride 20 meq FEEDTUBE QDAY 11/11/18 11/11/18 Unknown History guaiFENesin DM [Robitussin Dm] 10 ml FEEDTUBE Q6HR PRN 11/11/18 11/11/18 Unknown History levoFLOXacin [Levaquin TAB] 500 mg FEEDTUBE QDAY 11/11/18 11/11/18 Unknown History ED Physical Exam - General Limitations: Altered Mental Status, Physical Limitation - Other Other exam information: General: No limitations, patient is alert in no acute distress Head exam: Atraumatic, normocephalic Eyes exam: Normal appearance, pupils equal reactive to light ENT: Dry mucous membranes Neck exam: Normal inspection, full range of motion, no meningismus nontender Respiratory exam: Bilateral rhonchi with hypoxia Cardiovascular: Tachycardic regular rhythm Abdomen: No grimace with palpation. PEG tube noted in the left upper quadrant. Nurse has performed a straight cath prior to my examination. On my exam patient has a firmness with questionable mass in the suprapubic area on palpation. Extremity: No edema Back: Normal Inspection, full range of motion, no tenderness Neurologic: Lethargic, nonverbal, contractures noted to right upper extremity. Sensation grossly intact bilaterally with limited movement of the right lower extremity compared to the left lower extremity. Patient appears to have right- sided weakness likely chronic secondary to CVA. Psychiatric: normal affect, normal mood ED Course Vital Signs 11/11/18 11/11/18 11/11/18 10:22 10:46 12:44 Temperature 98.7 F Pulse Rate 119 H 125 H Respiratory 25 H 27 H Rate Blood Pressure 101/62 Blood Pressure 101/62 [Left] O2 Sat by Pulse 96 93 94 Oximetry 11/11/18 11/11/18 11/11/18 12:48 13:00 13:16 Temperature Pulse Rate 120 H 114 H 116 H Respiratory 22 24 25 H Rate Blood Pressure 103/53 102/59 102/59 Blood Pressure [Left] O2 Sat by Pulse 95 95 94 Oximetry 11/11/18 11/11/18 11/11/18 13:30 14:46 14:50 Temperature Pulse Rate 115 H 115 H 109 H Respiratory 24 28 H 25 H Rate Blood Pressure 102/59 102/59 Blood Pressure 98/61 [Left] O2 Sat by Pulse 95 97 97 Oximetry 11/11/18 11/11/18 11/11/18 15:00 15:16 15:30 Temperature Pulse Rate 112 H 111 H 113 H Respiratory 26 H 28 H 28 H Rate Blood Pressure 98/61 98/61 98/61 Blood Pressure [Left] O2 Sat by Pulse 96 97 96 Oximetry 11/11/18 11/11/18 11/11/18 15:45 15:52 16:00 Temperature Pulse Rate 110 H 110 H 117 H Respiratory 21 15 19 Rate Blood Pressure 122/84 99/61 Blood Pressure 106/65 [Left] O2 Sat by Pulse 97 98 97 Oximetry 11/11/18 11/11/18 11/11/18 16:16 16:29 16:30 Temperature Pulse Rate 115 H 108 H 108 H Respiratory 20 24 Rate Blood Pressure 89/57 84/55 84/55 Blood Pressure [Left] O2 Sat by Pulse 99 100 100 Oximetry 11/11/18 11/11/18 11/11/18 16:46 17:00 17:16 Temperature Pulse Rate 105 H 103 H 99 H Respiratory 18 18 16 Rate Blood Pressure 84/53 84/52 88/54 Blood Pressure [Left] O2 Sat by Pulse 100 100 100 Oximetry 11/11/18 11/11/18 11/11/18 17:30 17:46 18:00 Temperature Pulse Rate 101 H 101 H 103 H Respiratory 19 20 21 Rate Blood Pressure 92/57 90/58 94/60 Blood Pressure [Left] O2 Sat by Pulse 99 99 97 Oximetry 11/11/18 11/11/18 11/11/18 18:16 18:34 18:42 Temperature Pulse Rate 102 H 105 H 103 H Respiratory 22 20 Rate Blood Pressure 96/60 106/61 Blood Pressure 101/60 [Left] O2 Sat by Pulse 95 95 94 Oximetry - Reevaluation(s) Reevaluation #1: 11/11/18 14:42 Originally the straight cathed patient for urine prior to my evaluation reports 500 mL of urine output. Nurse was instructed to place a Tijerina sent suprapubic fullness was palpated. Patient had additional output of 1000 mL urine with Tijerina placement and developed gross hematuria.Does not report difficulty inserting Tijerina catheter. Suprapubic distention has now resolved. - Consultations Consultation #1: 11/11/18 14:47 consults ordered for urology, nephrology, and interventional radiology 11/11/18 14:50 Charlie will come by to gabriele bond for Possible nephrostomy tube - Intubation Time Out Performed: Yes Sedative: Etomidate Mg Given: 20 Paralytic: Succinylcholine Mg Given: 100 Laryngoscope: Pasquale Size: 4 ET Tube Size: 7.5 Tube Secured Depth (cm): 23 Tube Secured Location: lips Tube Placement Confirmation: visualized tube passing t, equal breath sounds bilat, no breath sounds over epi, confirmation by capnometr Patient Tolerated Procedure: well Intubation Complications: none - Lab Data Result diagrams: 11/11/18 09:55 11/11/18 09:55 Lab Results 11/11/18 11/11/18 11/11/18 Range/Units 09:55 09:55 09:55 WBC 10.0 (4.5-11.0) K/mm3 RBC 4.40 (3.65-5.03) M/mm3 Hgb 13.9 (11.8-15.2) gm/dl Hct 40.2 (35.5-45.6) % MCV 91 (84-94) fl MCH 32 (28-32) pg MCHC 35 H (32-34) % RDW 14.0 (13.2-15.2) % Plt Count 160 (140-440) K/mm3 Lymph % (Auto) 2.9 L (13.4-35.0) % Pope % (Auto) 9.8 H (0.0-7.3) % Eos % (Auto) 0.0 (0.0-4.3) % Baso % (Auto) 0.3 (0.0-1.8) % Lymph # 0.3 L (1.2-5.4) K/mm3 Pope # 1.0 H (0.0-0.8) K/mm3 Eos # 0.0 (0.0-0.4) K/mm3 Baso # 0.0 (0.0-0.1) K/mm3 Seg Neutrophils % 87.0 H (40.0-70.0) % Seg Neutrophils # 8.7 H (1.8-7.7) K/mm3 POC ABG pH (7.35-7.45) POC ABG pCO2 (35-45) POC ABG pO2 (80-105) POC ABG HCO3 POC ABG Total CO2 POC ABG O2 Sat POC ABG Base Excess VBG pH (7.320-7.420) FiO2 % Sodium 129 L (137-145) mmol/L Potassium 4.7 (3.6-5.0) mmol/L Chloride 95.5 L (98-107) mmol/L Carbon Dioxide 18 L (22-30) mmol/L Anion Gap 20 mmol/L BUN 155 H (9-20) mg/dL Creatinine 3.1 H (0.8-1.5) mg/dL Estimated GFR 21 ml/min BUN/Creatinine Ratio 50 % Glucose 196 H (75-100) mg/dL Lactic Acid (0.7-2.0) mmol/L Calcium 8.6 (8.4-10.2) mg/dL Total Bilirubin 0.30 (0.1-1.2) mg/dL AST 17 (5-40) units/L ALT 16 (7-56) units/L Alkaline Phosphatase 82 (35-129) units/L Total Protein 6.4 (6.3-8.2) g/dL Albumin 2.4 L (3.9-5) g/dL Albumin/Globulin Ratio 0.6 % TSH 0.900 (0.270-4.200) mlU/mL Urine Color (Yellow) Urine Turbidity (Clear) Urine pH (5.0-7.0) Ur Specific [place] (1.003-1.030) Urine Protein (Negative) mg/dL Urine Glucose (UA) (Negative) mg/dL Urine Ketones (Negative) mg/dL Urine Blood (Negative) Urine Nitrite (Negative) Urine Bilirubin (Negative) Urine Urobilinogen (<2.0) mg/dL Ur Leukocyte Esterase (Negative) Urine WBC (Auto) (0.0-6.0) /HPF Urine RBC (Auto) (0.0-6.0) /HPF Urine Bacteria (Auto) (Negative) /HPF Urine WBC Clumps /HPF Urine Mucus /HPF Plasma/Serum Alcohol (0-0.07) % 11/11/18 11/11/18 11/11/18 Range/Units 09:55 10:22 12:04 WBC (4.5-11.0) K/mm3 RBC (3.65-5.03) M/mm3 Hgb (11.8-15.2) gm/dl Hct (35.5-45.6) % MCV (84-94) fl MCH (28-32) pg MCHC (32-34) % RDW (13.2-15.2) % Plt Count (140-440) K/mm3 Lymph % (Auto) (13.4-35.0) % Pope % (Auto) (0.0-7.3) % Eos % (Auto) (0.0-4.3) % Baso % (Auto) (0.0-1.8) % Lymph # (1.2-5.4) K/mm3 Pope # (0.0-0.8) K/mm3 Eos # (0.0-0.4) K/mm3 Baso # (0.0-0.1) K/mm3 Seg Neutrophils % (40.0-70.0) % Seg Neutrophils # (1.8-7.7) K/mm3 POC ABG pH 7.335 L (7.35-7.45) POC ABG pCO2 34.8 L (35-45) POC ABG pO2 55 L (80-105) POC ABG HCO3 18.6 POC ABG Total CO2 20 POC ABG O2 Sat 87 POC ABG Base Excess -7 VBG pH (7.320-7.420) FiO2 50 % Sodium (137-145) mmol/L Potassium (3.6-5.0) mmol/L Chloride (98-107) mmol/L Carbon Dioxide (22-30) mmol/L Anion Gap mmol/L BUN (9-20) mg/dL Creatinine (0.8-1.5) mg/dL Estimated GFR ml/min BUN/Creatinine Ratio % Glucose (75-100) mg/dL Lactic Acid (0.7-2.0) mmol/L Calcium (8.4-10.2) mg/dL Total Bilirubin (0.1-1.2) mg/dL AST (5-40) units/L ALT (7-56) units/L Alkaline Phosphatase (35-129) units/L Total Protein (6.3-8.2) g/dL Albumin (3.9-5) g/dL Albumin/Globulin Ratio % TSH (0.270-4.200) mlU/mL Urine Color [place] (Yellow) Urine Turbidity Turbid (Clear) Urine pH 8.0 H (5.0-7.0) Ur Specific [place] 1.011 (1.003-1.030) Urine Protein 100 mg/dl (Negative) mg/dL Urine Glucose (UA) Neg (Negative) mg/dL Urine Ketones Neg (Negative) mg/dL Urine Blood Sm (Negative) Urine Nitrite Neg (Negative) Urine Bilirubin Neg (Negative) Urine Urobilinogen < 2.0 (<2.0) mg/dL Ur Leukocyte Esterase Lg (Negative) Urine WBC (Auto) > 182.0 H (0.0-6.0) /HPF Urine RBC (Auto) 27.0 (0.0-6.0) /HPF Urine Bacteria (Auto) 3+ (Negative) /HPF Urine WBC Clumps 3+ /HPF Urine Mucus Few /HPF Plasma/Serum Alcohol < 0.01 (0-0.07) % 11/11/18 11/11/18 Range/Units 15:04 15:04 WBC (4.5-11.0) K/mm3 RBC (3.65-5.03) M/mm3 Hgb (11.8-15.2) gm/dl Hct (35.5-45.6) % MCV (84-94) fl MCH (28-32) pg MCHC (32-34) % RDW (13.2-15.2) % Plt Count (140-440) K/mm3 Lymph % (Auto) (13.4-35.0) % Pope % (Auto) (0.0-7.3) % Eos % (Auto) (0.0-4.3) % Baso % (Auto) (0.0-1.8) % Lymph # (1.2-5.4) K/mm3 Pope # (0.0-0.8) K/mm3 Eos # (0.0-0.4) K/mm3 Baso # (0.0-0.1) K/mm3 Seg Neutrophils % (40.0-70.0) % Seg Neutrophils # (1.8-7.7) K/mm3 POC ABG pH (7.35-7.45) POC ABG pCO2 (35-45) POC ABG pO2 (80-105) POC ABG HCO3 POC ABG Total CO2 POC ABG O2 Sat POC ABG Base Excess VBG pH 7.343 (7.320-7.420) FiO2 % Sodium (137-145) mmol/L Potassium (3.6-5.0) mmol/L Chloride (98-107) mmol/L Carbon Dioxide (22-30) mmol/L Anion Gap mmol/L BUN (9-20) mg/dL Creatinine (0.8-1.5) mg/dL Estimated GFR ml/min BUN/Creatinine Ratio % Glucose (75-100) mg/dL Lactic Acid 0.90 (0.7-2.0) mmol/L Calcium (8.4-10.2) mg/dL Total Bilirubin (0.1-1.2) mg/dL AST (5-40) units/L ALT (7-56) units/L Alkaline Phosphatase (35-129) units/L Total Protein (6.3-8.2) g/dL Albumin (3.9-5) g/dL Albumin/Globulin Ratio % TSH (0.270-4.200) mlU/mL Urine Color (Yellow) Urine Turbidity (Clear) Urine pH (5.0-7.0) Ur Specific [place] (1.003-1.030) Urine Protein (Negative) mg/dL Urine Glucose (UA) (Negative) mg/dL Urine Ketones (Negative) mg/dL Urine Blood (Negative) Urine Nitrite (Negative) Urine Bilirubin (Negative) Urine Urobilinogen (<2.0) mg/dL Ur Leukocyte Esterase (Negative) Urine WBC (Auto) (0.0-6.0) /HPF Urine RBC (Auto) (0.0-6.0) /HPF Urine Bacteria (Auto) (Negative) /HPF Urine WBC Clumps /HPF Urine Mucus /HPF Plasma/Serum Alcohol (0-0.07) % - EKG Data -: EKG Interpreted by Ok EKG shows normal: sinus rhythm, axis (qrs -30), QRS complexes (qrsd 91), ST-T waves (no stei/t inv) Rate: tachycardia (119) - Radiology Data Radiology results: report reviewed AP CHEST: HISTORY: Altered mental status, renal failure, rhonchi Right middle lobe and right lower lobe atelectasis have developed since 10/20/18. The right upper lobe and left lung remain clear. Heart size is within normal limits. No acute bony abnormality. IMPRESSION: Right middle and lower lobe atelectasis. FINAL REPORT EXAM: CT HEAD/BRAIN WO CON HISTORY: ams TECHNIQUE: CT of the head was performed without intravenous contrast. PRIORS: CT of the head from 09/24/2018. FINDINGS: The ventricles are normal in shape and position. Unchanged dilated ventricles likely related to diffuse cerebral volume loss. Unchanged severe findings of chronic microvascular ischemic disease. No intracranial hemorrhage, mass, mass effect, midline shift or evidence of acute ischemic infarct. The basilar cisterns are patent. Mild mucosal thickening of the right maxillary and ethmoid sinuses is likely congestive or inflammatory. 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 The extracranial soft tissues demonstrate no abnormality. The calvarium is intact. Old left medial orbital wall deformity is unchanged. The mastoid air cells are clear. IMPRESSION: 1. No acute intracranial abnormality. 2. Unchanged severe diffuse cerebral volume loss and findings of chronic microvascular ischemic disease. AP CHEST: HISTORY: Altered mental status, renal failure, rhonchi Right middle lobe and right lower lobe atelectasis have developed since 10/20/18. The right upper lobe and left lung remain clear. Heart size is within normal limits. No acute bony abnormality. IMPRESSION: Right middle and lower lobe atelectasis. FINAL REPORT EXAM: CT ABDOMEN PELVIS WO CON HISTORY: AMS, SUPRAPUBIC FULLNESS, RENAL FAILURE TECHNIQUE: CT of the abdomen and pelvis was performed without intravenous contrast. Reconstructions were included in the coronal and sagittal planes. PRIORS: None. FINDINGS: Lower thorax: Mild patchy ground-glass opacities are seen in the right middle lobe. There is a focal right lower lobe consolidation. Moderate to severe coronary artery calculi are seen. Liver: The liver is normal in attenuation. No intrahepatic biliary duct dilation. No focal hepatic lesions. Gallbladder/ biliary system: Cholelithiasis is seen. No gallbladder wall thickening or pericholecystic fluid. The common bile duct appears nondilated. Spleen: No splenic lesions are seen. Pancreas: No pancreatic lesions are seen. No pancreatic duct dilation. Kidneys: There is a simple right inferior pole renal cyst. There is moderate bilateral hydroureteronephrosis. No ureteral calculi are seen. Several small bilateral renal calculi are seen. The largest on the right measures 3 millimeters and is present in the interpolar region. The largest on the left measures 3 millimeters and is present in the superior pole. Adrenal glands: A nonspecific right adrenal lesion is seen measuring 1.8 centimeters. Nonspecific left adrenal lesion is seen measuring 2.3 centimeters. Vasculature: The abdominal aorta is nondilated. Atherosclerotic calculi are seen in the abdominal aorta. Lymph nodes: No enlarged lymph nodes are seen in the abdomen or pelvis. Bowel, mesentery, peritoneum: No bowel obstruction. No free fluid or free air. The appendix is normal. No colonic diverticulosis. No bowel wall thickening. A percutaneous gastrostomy tube is seen. There is a large amount of retained stool in the rectum. Urinary bladder: There is diffuse, irregular urinary bladder wall thickening. There is a focal masslike area of wall thickening along left superior urinary bladder wall measuring 2.2 centimeters. Air within the urinary bladder is likely related to presence of the [place] catheter. There is high attenuation material within the right posterior aspect of the urinary bladder which may represent debris or hemorrhage. Pelvis: Normal anatomy is noted. No masses. Abdominal wall: Small bilateral fat containing inguinal hernias are seen. Bones: Degenerative changes are seen in the spine. IMPRESSION: 1. Diffuse, irregular urinary bladder wall thickening which may be related to cystitis versus bladder outlet obstruction or possibly underlying bladder neoplasm especially given the masslike area within the left superior bladder wall. Consider further evaluation with cystoscopy. 2. Small amount of high attenuation material layering within the right posterior urinary bladder may represent infectious material versus hemorrhage. 3. Moderate bilateral hydroureteronephrosis without obstructing ureteral calculus. 4. Bilateral nonobstructing renal calculi. 5. Simple right renal cyst. 6. Large amount of retained stool in the rectum. 7. Cholelithiasis. 8. Right lower lobe consolidation concerning for pneumonia. Right middle lobe opacities also concerning for pneumonia versus aspiration. 9. Moderate to severe coronary artery calculi. 10. Nonspecific bilateral adrenal gland lesions could be further assessed on dedicated adrenal CT or MRI. repeat cxr reviewed s/p intubation: see report - Medical Decision Making Patient presented on nonrebreather. We attempted to wean down oxygen. ABG was performed on 50% Ventimask and reveals persistent hypoxia for nonrebreather caryl ann back on patient. No signs of CO2 retention or respiratory acidosis at this time. X-ray suggestive of atelectasis however CT suggestive pneumonia possible aspiration. Patient was treated with Rocephin (given initially for uti) and Levaquin. Blood cultures, venous pH, lactic acid ordered after Rocephin. will defer to hospitalist for additional abx. Patient has signs of urinary obstruction with possible bladder mass. Hematuria seems to be improving while in the ED and suprapubic distention has resolved with Tijerina catheter placement. Case discussed with Charlie and interventional radiologist will evaluate patient to determine if nephrostomy tube is necessary. 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 Rocephin for UTI. Culture pending IV fluids initiated normal saline at 250 mL per hour for significant uremia. Patient tachycardia without signs of hypotension. pt intubated by me central line placed by Dr Vera/hosp - Differential Diagnosis encephalopathy, CVA, sepsis, dehydration Critical Care Time: Yes Critical care time in (mins) excluding proc time.: 65 Critical care attestation.: If time is entered above; I have spent that time in minutes in the direct care of this critically ill patient, excluding procedure time. ED Disposition Clinical Impression: Altered mental status, Hypoxia, Pneumonia, Urinary retention, Bladder mass, Hydronephrosis, Renal insufficiency, Uremia, History of CVA with residual deficit, PEG (percutaneous endoscopic gastrostomy) status UTI (urinary tract infection) Qualifiers: Encounter type: initial encounter Disposition: 09 OP ADMIT IP TO THIS HOSP Is pt being admited?: Yes Condition: Stable Time of Disposition: 14:50 (Dr Vera/hosp)
[2018-11-11] MEDS ORDERED: LEVAQUIN 750MG/150ML 750 MG/150 ML BAG IV ONE (14:47)
--- NOTE | 2018-11-11 15:01 | History and Physical Report ---
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 Pt is stuporous and unable to provide history. History taken from [facility] staff. As per [facility] staff, the patient was found to be confused and nonresponsive. EMS notified and upon arrival the patient was found to be in distress. Pt transported to [facility] for further care and evaluation. Pt seen and evaluated in ED and found to have Sepsis secondary to UTI, Acute Renal Failure, Acute Hypoxemic Respiratory Failure. Pt admitted to ICU and initiated on sepsis protocol. No reports of fever, chills, CP, Palpitations, Trauma, BRBPR, productive cough, skin rash or recent ill contacts. Past History Past Medical History: COPD, diabetes, hypertension, stroke Past Surgical History: Other (G tube) Social history: single. denies: smoking, alcohol abuse, prescription drug abuse, IV drug use Family history: diabetes, hypertension Medications and Allergies Allergies Allergy/AdvReac Type Severity Reaction Status Date / Time No Known Allergies Allergy Verified 02/27/15 00:48 Home Medications Medication Instructions Recorded Confirmed Last Taken Type AtorvaSTATin [Lipitor] 40 mg FEEDTUBE QHS 06/21/16 11/11/18 06/20/16 History Ascorbic Acid [Vitamin C] 500 mg FEEDTUBE QDAY 07/14/18 11/11/18 Unknown History Aspirin [Adult Aspirin Regimen] 81 mg FEEDTUBE DAILY 07/14/18 11/11/18 Unknown History Ipratropium/Albuterol Sulfate 1 ampul IH Q6HR 07/14/18 11/11/18 Unknown History [DUONEB *Not for PRN Use*] Multivitamin [Multiple Vitamins] 1 each FEEDTUBE DAILY 07/14/18 11/11/18 Unknown History Protein Supplement [Promod] 30 ml FEEDTUBE Q8H 07/14/18 11/11/18 Unknown History Acetaminophen [Tylenol] 650 mg FEEDTUBE Q4HR PRN 11/11/18 11/11/18 Unknown History Gabapentin [Neurontin] 300 mg FEEDTUBE BID 11/11/18 11/11/18 Unknown History L. Acidophilus/L.bulgaricus 1 each FEEDTUBE QAM 11/11/18 11/11/18 Unknown History [Lactobacillus Tablet] Omeprazole 20 mg FEEDTUBE QAM 11/11/18 11/11/18 Unknown History Potassium Chloride 20 meq FEEDTUBE QDAY 11/11/18 11/11/18 Unknown History guaiFENesin DM [Robitussin Dm] 10 ml FEEDTUBE Q6HR PRN 11/11/18 11/11/18 Unknown History levoFLOXacin [Levaquin TAB] 500 mg FEEDTUBE QDAY 11/11/18 11/11/18 Unknown History Active Meds: Active Medications Sodium Chloride (Nacl 0.9% 1000 Ml) 1,000 mls @ 250 mls/hr IV ONCE ONE Stop: 11/11/18 15:27 Last Admin: 11/11/18 12:01 Dose: 250 mls/hr Documented by: Levofloxacin/Dextrose (Levaquin 750mg/150ml) 750 mg in 150 mls @ 100 mls/hr IV ONCE ONE Stop: 11/11/18 16:16 Review of Systems ROS unobtainable: due to mental status Exam - Constitutional Vitals: Temp Pulse Resp BP Pulse Ox 98.7 F 109 H 25 H 98/61 97 11/11/18 10:22 11/11/18 14:50 11/11/18 14:50 11/11/18 14:50 11/11/18 14:50 General appearance: Present: severe distress, cachectic, disheveled - EENT Eyes: Present: miosis - Neck Neck: Present: supple, normal ROM - Respiratory Respiratory effort: labored Respiratory: bilateral: diminished, rhonchi - Cardiovascular Rhythm: other (tachycardia) Heart Sounds: Present: S1 & S2 - Extremities Extremities: pulses symmetrical, No edema Peripheral Pulses: abnormal (capillary refill greater than 3.5 seconds) - Integumentary Integumentary: Present: dry, clammy, decreased turgor - Musculoskeletal Musculoskeletal: generalized weakness - Psychiatric Psychiatric: no appropriate mood/affect, no intact judgment & insight, no memory intact - Neurologic Neurologic: no gait normal Results - Labs CBC & Chem 7: 11/11/18 09:55 11/11/18 09:55 Labs: Abnormal lab results 11/11/18 11/11/18 11/11/18 Range/Units 09:55 09:55 10:22 MCHC 35 H (32-34) % Lymph % (Auto) 2.9 L (13.4-35.0) % [place] % (Auto) 9.8 H (0.0-7.3) % Lymph # 0.3 L (1.2-5.4) K/mm3 [place] # 1.0 H (0.0-0.8) K/mm3 Seg Neutrophils % 87.0 H (40.0-70.0) % Seg Neutrophils # 8.7 H (1.8-7.7) K/mm3 POC ABG pH (7.35-7.45) POC ABG pCO2 (35-45) POC ABG pO2 (80-105) Sodium 129 L (137-145) mmol/L Chloride 95.5 L (98-107) mmol/L Carbon Dioxide 18 L (22-30) mmol/L BUN 155 H (9-20) mg/dL Creatinine 3.1 H (0.8-1.5) mg/dL Glucose 196 H (75-100) mg/dL Albumin 2.4 L (3.9-5) g/dL Urine pH 8.0 H (5.0-7.0) Urine WBC (Auto) > 182.0 H (0.0-6.0) /HPF 11/11/18 Range/Units 12:04 MCHC (32-34) % Lymph % (Auto) (13.4-35.0) % [place] % (Auto) (0.0-7.3) % Lymph # (1.2-5.4) K/mm3 [place] # (0.0-0.8) K/mm3 Seg Neutrophils % (40.0-70.0) % Seg Neutrophils # (1.8-7.7) K/mm3 POC ABG pH 7.335 L (7.35-7.45) POC ABG pCO2 34.8 L (35-45) POC ABG pO2 55 L (80-105) Sodium (137-145) mmol/L Chloride (98-107) mmol/L Carbon Dioxide (22-30) mmol/L BUN (9-20) mg/dL Creatinine (0.8-1.5) mg/dL Glucose (75-100) mg/dL Albumin (3.9-5) g/dL Urine pH (5.0-7.0) Urine WBC (Auto) (0.0-6.0) /HPF Assessment and Plan - Patient Problems (1) Sepsis Current Visit: Yes Status: Acute Qualifiers: Sepsis type: sepsis due to unspecified organism Qualified Code(s): A41.9 - Sepsis, unspecified organism Plan to address problem: IV antibiotic therapy, IVF resuscitation therapy, monitor uop q shift, serial lactic acid level, CBC, CMP, Chest x ray, Blood cultures, urinalysis, Admit to ICU. The high probability of a clinically significant, sudden or life threatening deterioration of the [pulmonary, neuro, renal] system(s) required my full and direct attention, intervention and personal management. The aggregate critical care time was [65] minutes. This time is in addition to time spent performing reported procedures but includes the following: [x] Data Review and interpretation [x] Patient assessment and monitoring of vital signs [x] Documentation [x] Medication orders and management (2) Respiratory failure Current Visit: Yes Status: Acute Qualifiers: Chronicity: acute Respiratory failure complication: hypoxia Qualified Code(s): J96.01 - Acute respiratory failure with hypoxia Plan to address problem: Admit to ICU, Pt intubated, sedated, and placed on vent support, Pulmonary team consulted, ABG, wean vent as tolerated, sedation holiday, daily SBT. (3) UTI (urinary tract infection) Current Visit: Yes Status: Acute Qualifiers: Encounter type: initial encounter Plan to address problem: IV antibiotic therapy, cbc, cmp, blood cultures (4) Encephalopathy Current Visit: No Status: Chronic Plan to address problem: Toxic Encephalopathy: Treat sepsis, neuro checks, supportive care. CT head (5) ARF (acute renal failure) with tubular necrosis Current Visit: Yes Status: Acute Plan to address problem: IVF resuscitation therapy, monitor uop q shift, (6) DVT prophylaxis Current Visit: No Status: Acute Plan to address problem: SCD to BLE while in bed
[2018-11-11] MEDS ORDERED: AMIDATE IV ONE ×2 (15:35)
[2018-11-11] MEDS ORDERED: QUELICIN ONE (15:35)
[2018-11-11] MEDS ORDERED: QUELICIN IV ONE (15:35)
[2018-11-11] MEDS ORDERED: VANCOMYCIN 1,000 MG in NACL 0.9% 500 ML 500 ML IV ONE (15:42)
[2018-11-11] MEDS ORDERED: PROVENTIL IH PRN (15:42)
[2018-11-11] MEDS ORDERED: NACL 0.9% 1000 ML IV ONE (15:42)
--- NOTE | 2018-11-11 15:48 | Event Note ---
Date: 11/11/18 58 year old male with bilateral hydronephrosis unchanged from last CT scan. Suspect the acute rise in creatinine may be related to another cause. Recommend urology consult. Will reassess tomorrow, but hydronephrosis appears unchanged. Reassess creatinine tomorrow.
[2018-11-11] MEDS ORDERED: TYLENOL FEEDTUBE PRN ×2 (15:53→16:44)
[2018-11-11] MEDS ORDERED: NON-FORMULARY (Protein Supplement [Promod] 30 ML) FEEDTUBE SCH (16:00)
[2018-11-11] MEDS ORDERED: VERSED IV PRN (16:03)
[2018-11-11] MEDS ORDERED: ARTIFICIAL TEARS OPHTH OINT OU PRN (16:03)
[2018-11-11] MEDS ORDERED: VASELINE LIP THERAPY TP PRN (16:03)
[2018-11-11] MEDS ORDERED: ATIVAN IV ONE (16:08)
[2018-11-11] MEDS ORDERED: ATIVAN ONE (16:08)
[2018-11-11] MEDS ORDERED: VANCOMYCIN/NS 1 GM/250 ML 1 GM/250 ML BAG IV ONE (16:30)
[2018-11-11] MEDS ORDERED: LEVOPHED DRIP 4 MG/NS 250 ML 4 MG/250 ML BAG IV ONE ×2 (16:36→21:45)
[2018-11-11] MEDS ORDERED: MIDAZOLAM 100 MG in NACL 0.9% 80 ML IV SCH (17:00)
--- NOTE | 2018-11-11 17:48 | XRay Report ---
FINAL REPORT EXAM: XR CHEST 1V AP HISTORY: post intubation TECHNIQUE: Frontal chest radiograph. PRIORS: 09/23/2018. FINDINGS: Right IJ central venous catheter tip projects in the mid SVC. The endotracheal tube tip projects in t he mid thoracic trachea. The cardiomediastinal silhouette is normal. Patchy right lower lobe opacities are seen. There is a small right pleural effusion. No pneumothorax. No acute osseous abnormality. IMPRESSION: 1. Endotracheal tube tip projecting in the mid thoracic trachea. 2. Right lower lobe atelectasis versus pneumonia and small right pleural effusion.
[2018-11-11] MEDS: NACL 0.9% 1000 ML 1,000 ML IV SCH (17:58)
--- NOTE | 2018-11-11 18:13 | Procedure Note ---
Pre-op diagnosis: Sepsis Post-op diagnosis: same Procedure: RIJ Central Line Placement under ultrasound guidance Pt prepped and draped in the usual sterile fashion. Timeout taken to identify correct patient, procedure, and operative site. Local anesthesia obtained with Lidocaine 1%. Ultrasound used to identify RIJV without difficulty. Seldinger technique utilized to access the RIJV, and a guidewire was advanced into the RIJV. The seeker needle was removed. A scalpel was used to incise the skin, and a dilator was utilized to dilate the skin tract and subsequently removed. The triple lumen was then advanced over the guidewire into the RIJV and subsequently removed. A biopatch was placed at the insertion site and the triple lumen catheter sewn in place. All three ports flush and draw with ease. Postop chest x ray obtained, and does not show Pneumothorax. Triple lumen in SVC. EBL: Minimal Complications: None Anesthesia: local Surgeon: BELA YUN Estimated blood loss: minimal Pathology: none Condition: critical Disposition: ICU
--- NOTE | 2018-11-11 19:50 | Consultation ---
History of Present Illness Consult date: 11/11/18 Requesting physician: CODEY CACERES Reason for consult: other (Septic Shock; Acute Hypoxemic Respiratory Failure on MVS) History of present illness: PCCM Consult note (Full dictation # [id number]) Please see dictated notes for full details Past History Past Medical History: COPD, diabetes, hypertension, stroke Past Surgical History: Other (G tube) Social history: single. denies: smoking, alcohol abuse, prescription drug abuse, IV drug use Family history: diabetes, hypertension Medications and Allergies Allergies Allergy/AdvReac Type Severity Reaction Status Date / Time No Known Allergies Allergy Verified 02/27/15 00:48 Home Medications Medication Instructions Recorded Confirmed Last Taken Type RX: AtorvaSTATin [Lipitor] 40 mg FEEDTUBE QHS 06/21/16 11/11/18 06/20/16 History RX: Ascorbic Acid [Vitamin C] 500 mg FEEDTUBE QDAY 07/14/18 11/11/18 Unknown His tory RX: Aspirin [Adult Aspirin Regimen] 81 mg FEEDTUBE DAILY 07/14/18 11/11/18 Unknown History RX: Ipratropium/Albuterol Sulfate 1 ampul IH Q6HR 07/14/18 11/11/18 Unknown History [DUONEB *Not for PRN Use*] RX: Multivitamin [Multiple 1 each FEEDTUBE DAILY 07/14/18 11/11/18 Unknown History Vitamins] RX: Protein Supplement [Promod] 30 ml FEEDTUBE Q8H 07/14/18 11/11/18 Unknown His tory Acetaminophen [Tylenol] 650 mg FEEDTUBE Q4HR PRN 11/11/18 11/11/18 Unknown History Gabapentin [Neurontin] 300 mg FEEDTUBE BID 11/11/18 11/11/18 Unknown History L. Acidophilus/L.bulgaricus 1 each FEEDTUBE QAM 11/11/18 11/11/18 Unknown History [Lactobacillus Tablet] RX: Omeprazole 20 mg FEEDTUBE QAM 11/11/18 11/11/18 Unknown History RX: Potassium Chloride 20 meq FEEDTUBE QDAY 11/11/18 11/11/18 Unknown History guaiFENesin DM [Robitussin Dm] 10 ml FEEDTUBE Q6HR PRN 11/11/18 11/11/18 Unknown History levoFLOXacin [Levaquin TAB] 500 mg FEEDTUBE QDAY 11/11/18 11/11/18 Unknown History Active Meds: Active Medications Acetaminophen (Tylenol) 650 mg FEEDTUBE Q4H PRN PRN Reason: Pain, Mild (1-3) Albuterol (Proventil) 2.5 mg IH Q3HRT PRN PRN Reason: Shortness Of Breath Ascorbic Acid (Vitamin C) 500 mg FEEDTUBE QDAY SHIRA Atorvastatin Calcium (Lipitor) 40 mg FEEDTUBE QHS SHIRA Gabapentin (Neurontin) 300 mg PO BID SHIRA Guaifenesin (Guaifenesin Dm Syrup) 10 ml FEEDTUBE Q6HR PRN PRN Reason: Cough Hydrophilic Ointment (Vaseline Lip Therapy) 1 applic TP Q2HR PRN PRN Reason: Dry Lips Cefepime HCl (Maxipime/Ns 2 Gm/100 Ml) 2 gm in 100 mls @ 200 mls/hr IV Q12HR SHIRA; Protocol Midazolam HCl 100 mg/ Sodium (Chloride) 100 mls @ 2 mls/hr IV TITR SHIRA; Protocol Norepinephrine (Levophed Drip 4 Mg/Ns 250 Ml) 4 mg in 250 mls @ 7.5 mls/hr IV TITR SHIRA; Protocol Sodium Chloride (Nacl 0.9% 1000 Ml) 1,000 mls @ 100 mls/hr IV DIRECT SHIRA Last Admin: 11/11/18 17:58 Dose: 100 mls/hr Documented by: Lactobacillus Acidophilus (Floranex) 1 each PO QAM SHIRA Lansoprazole (Prevacid Solutab) 30 mg FEEDTUBE QDAY SHIRA Midazolam HCl (Versed) 2 mg IV Q10MIN PRN PRN Reason: Sedation Miscellaneous Medication (Protein Supplement [Promod]) 30 ml FEEDTUBE Q8H [facility] Multi-Ingred Cream/Lotion/Oil/Oint (Artificial Tears Ophth Oint) 1 applic OU Q4HR PRN PRN Reason: Dry Eye(s) Multivitamins (Centrum Liq) 5 ml PO QDAY SHIRA Potassium Chloride (Potassium Chloride) 20 meq FEEDTUBE QDAY [facility] Sodium Chloride (Sodium Chloride Flush Syringe 10 Ml) 10 ml IV BID SHIRA Sodium Chloride (Sodium Chloride Flush Syringe 10 Ml) 10 ml IV PRN PRN PRN Reason: LINE FLUSH Physical Examination Vital signs: Vital Signs Temp Pulse Resp BP Pulse Ox 98.7 F 119 H 25 H 101/62 96 11/11/18 10:22 11/11/18 10:22 11/11/18 10:22 11/11/18 10:22 11/11/18 10:22 Results - Laboratory Findings CBC and BMP: 11/11/18 09:55 11/11/18 09:55 ABG POC ABG pH 7.256 (7.35-7.45) L 11/11/18 18:36 POC ABG pCO2 42.2 (35-45) 11/11/18 18:36 POC ABG pO2 74 (80-105) L 11/11/18 18:36 POC ABG HCO3 18.8 11/11/18 18:36 POC ABG Total CO2 20 11/11/18 18:36 POC ABG O2 Sat 92 11/11/18 18:36 Abnormal lab findings: Abnormal Labs 11/11/18 11/11/18 11/11/18 09:55 09:55 10:22 MCHC 35 H Lymph % (Auto) 2.9 L [place] % (Auto) 9.8 H Lymph # 0.3 L [place] # 1.0 H Seg Neutrophils % 87.0 H Seg Neutrophils # 8.7 H POC ABG pH POC ABG pCO2 POC ABG pO2 Sodium 129 L Chloride 95.5 L Carbon Dioxide 18 L BUN 155 H Creatinine 3.1 H Glucose 196 H Albumin 2.4 L Urine pH 8.0 H Urine WBC (Auto) > 182.0 H 11/11/18 11/11/18 12:04 18:36 MCHC Lymph % (Auto) [place] % (Auto) Lymph # [place] # Seg Neutrophils % Seg Neutrophils # POC ABG pH 7.335 L 7.256 L POC ABG pCO2 34.8 L POC ABG pO2 55 L 74 L Sodium Chloride Carbon Dioxide BUN Creatinine Glucose Albumin Urine pH Urine WBC (Auto)
[2018-11-11] MEDS ORDERED: SUBLIMAZE IV PRN (19:51)
[2018-11-11] MEDS ORDERED: fentaNYL DRIP Premix 2,000 MCG/100 ML BAG IV SCH (20:00)
[2018-11-11] MEDS ORDERED: NEURONTIN ONE (21:45)
[2018-11-11] MEDS ORDERED: MAXIPIME/NS 2 GM/100 ML 2 GM/100 ML BAG IV ONE (21:45)
[2018-11-11] MEDS: MAXIPIME/NS 2 GM/100 ML 2 GM/100 ML BAG IV SCH (21:48)
[2018-11-11] MEDS: SODIUM CHLORIDE FLUSH SYRINGE 10 ML IV SCH (21:48)
[2018-11-11] MEDS: NEURONTIN PO SCH (21:48)
[2018-11-11] MEDS: LEVOPHED DRIP 4 MG/NS 250 ML 4 MG/250 ML BAG IV SCH (21:49)
[2018-11-11] MEDS ORDERED: NEURONTIN FEEDTUBE SCH (22:00)
[2018-11-11] MEDS ORDERED: VERSED IV ONE (23:25)
--- NOTE | 2018-11-12 00:28 | Consultation ---
PULMONARY CRITICAL CARE CONSULTATION NOTE CONSULTING PHYSICIAN: Dr. Vera. REASON FOR CONSULTATION: Acute hypoxemic respiratory failure, on mechanical ventilatory support and sepsis syndrome. CHIEF COMPLAINT AND HISTORY OF PRESENT ILLNESS: The patient is a 58-year-old male, [facility] resident, with past medical history significant amongst other things for a diagnosis of COPD and prior cerebrovascular accident, presented to the Emergency Room. According to the staff, he was less responsive than usual. He was confused today. EMS found the patient in distress. In the Emergency Room, he was septic, believed secondary to the urinary tract infection. He had an acute hypoxemic respiratory failure. He required ultimately intubation and we were asked to assist with care. When I stopped by to see him, he was on the mechanical ventilator, not responding appropriately to me. He was I believe on the assist control mode of rastafari. Tidal volumes I believe were like 450 and a set rate of 18 with oxygen sats at 100%. He did not have any history of vomiting or overt aspiration, although I cannot rule that out. The patient is not a current tobacco abuser. Remote history is unknown. This really is as much of the history of presentation as I have. PAST MEDICAL HISTORY: Hypertension, diabetes, chronic obstructive lung disease, cerebrovascular accident, left hemiparesis, contractures, history of dysphagia, history of diabetes. PAST SURGICAL HISTORY: He has got a history of percutaneous endoscopic gastrostomy tube placement. MEDICATIONS: Medications he was on at the time I stopped by to see him were reviewed. Pertinent medications included the following: Tylenol 650 mg p.o. q.4 hours p.r.n. mild pain or fevers. All p.o. meds via the feeding tube. Albuterol 2.5 mg nebulized q.3 hours p.r.n. shortness of breath, vitamin C 500 mg p.o. daily, Lipitor 40 mg p.o. daily, cefepime 2 g IV q.12 hours, Neurontin 300 mg p.o. b.i.d., Floranex 1 tablet each q.a.m., Prevacid 30 mg p.o. daily. Versed drip was going at 2 mg per hour. Daily multivitamin, Levophed drip was going I believe at 12 mcg per minute, and he had received some potassium supplementation. ALLERGIES: No known drug allergies. DIET: Thin gentleman. Acute weight loss or gain history is unknown. FAMILY AND SOCIAL HISTORY: [facility] resident. No current alcohol, tobacco, or illicit drug use or abuse. FAMILY HISTORY: There is a reported family history of diabetes and hypertension on the charts. REVIEW OF SYSTEMS: Unobtainable secondary to patient's medical and mental condition. Since he has been in the Emergency Room, no gross hematochezia or melena, no gross hematuria, no hematemesis, no bloody tracheal secretions, no witnessed seizures. Review of systems is otherwise as in the body of history above or unobtainable. PHYSICAL EXAMINATION: VITAL SIGNS: At presentation, he was afebrile, temperature 98.7 degrees Fahrenheit with a pulse of 119, respiratory rate of 25, blood pressure 101/62, oxygen sats were 96%, inspired oxygen concentration at that time was not recorded. When I saw him, he was 99% on 100% FiO2, PEEP of 6 on the above-mentioned ventilator settings. GENERAL: Elderly, chronically ill looking male. Normocephalic, atraumatic, on the mechanical ventilator with mildly increased respiratory effort. HEAD, EYES, EARS, NOSE, AND THROAT: He was anicteric. No conjunctival erythema. Oropharynx was moist. Endotracheal tube was in place, taped at the lips around 23 cm. NECK: Grossly, no palpable lymph nodes in the supraclavicular or submandibular lymph node chains. No gross thyromegaly, no gross jugular venous distention. LUNGS: Auscultation of both lung callaway reveal some bibasilar rhonchi, diminished bilateral breath sounds. No active wheezing. No use of accessory muscles of respiration. CARDIOVASCULAR: Heart sounds 1 and 2 were heard. They were regular in rate and rhythm at the time of my evaluation with a soft systolic murmur. ABDOMEN: Full, soft, bowel sounds are positive, nontender. Percutaneous endoscopic gastrostomy tube is in place in the midline/left upper quadrant region. No bleeding, no palpable hepatosplenomegaly. EXTREMITIES: Without overt digital clubbing, no cyanosis, no pedal edema. Dorsalis pedis pulses are weakly palpable. NEUROLOGIC: Pupils were equal and round. They were about 5 mm, sluggishly reactive to light. Extraocular muscle movements could not be assessed. He did not follow commands. He had contractures to his upper extremities in particular and reportedly with the left hemiparesis. SKIN: Poor turgor without overt cellulitis or rash. PSYCHIATRIC: Unable to evaluate mood and affect. LABORATORY DATA: From my review are as follows: White cell count 10,000, hemoglobin 13.9, hematocrit 40.2, platelet count 160. No manual differential. Arterial blood gas at presentation showed a pH of 7.34, pCO2 of 35, and a pO2 of 55 that was on 50% FiO2. That was the most recent ABG from prior to intubation. Serum sodium was 129, potassium 4.7, chloride 96, bicarbonate 18, BUN 155, creatinine 3.1 and the glucose of 196. Lactic acid level was within normal limits. Liver function tests essentially within normal limits. Albumin was low at 2.4. Urinalysis showed large leukocyte esterase with greater than 182 white cells per high power field. Alcohol level was nondetectable. Cultures: I do not see any cultures yet. RADIOGRAPHIC STUDIES: He had a CT scan of the abdomen and pelvis and he also had a chest x-ray. CT of the abdomen and pelvis was read as diffuse irregular urinary bladder wall thickening, cystitis versus bladder outlet obstruction, moderate bilateral hydronephrosis, bilateral nonobstructing renal calculi, large amounts of retained stone and right lower lobe consolidation concerning for pneumonia. The chest x-ray again was done. I have reviewed the chest x-ray post-intubation. Endotracheal tube tip is at the level of the aortic knob. There is some elevation of the right hemidiaphragm. I cannot rule out mild atelectasis of that lobe. I doubt it is a pleural effusion. He has a right IJ central line with the tip in the distal SVC. No gross pneumothorax. No gross bony fractures that I can see. There appears to be some dilatation or enlargement of the gastric bubble. A CT scan of the head was also done. I have reviewed the interpretation, no acute intracranial abnormality. ASSESSMENT: 1. Acute hypoxemic respiratory failure, on mechanical ventilatory support. 2. Acute on chronic encephalopathy. 3. Severe sepsis with shock, presumably due to #4. 4. Urinary tract infection. 5. Acute kidney injury. 6. Likely bladder outlet obstruction. 7. Bilateral hydronephrosis. 8. Nephrolithiasis. 9. History of diabetes. 10. Hypertension. 11. Chronic obstructive lung disease. 12. Prior cerebrovascular accident with left hemiparesis. 13. Oropharyngeal dysphagia. 14. Metabolic acidosis. 15. Hyponatremia, moderate. 16. Adult failure to thrive. PLAN: We will continue full mechanical ventilatory support. I will get a stat arterial blood gas and make adjustments to the ventilator as necessary. We will begin to wean oxygen to keep sats greater than or equal to about 90%. I have dropped the FiO2 to 80% at this time. Aspiration precautions and ventilator-associated pneumonia bundle has been instituted, especially in this gentleman with a history of chronic obstructive lung disease and I am going to schedule long-acting bronchodilators with inhaled corticosteroids. I will continue with p.r.n. short-acting bronchodilators. I will do a short systemic steroid course, especially in light of his hypotension in case we are dealing with some relative adrenal insufficiency. We will continue broad spectrum antibiotic therapy. I will get a CRP level and trend along with the lactic acid level to aid in clinical decision making. He has been seen by the urologist after placement of a Tijer[place] catheter. According to the Emergency Room staff, they got about a liter and a half out. Further workup would depend on the urologist, especially in light of hydronephrosis. This hydronephrosis does appear to be chronic. Unclear he does need nephrostomy tubes, but he has been seen by the interventional radiologist. Tracheal aspirates will be sent. Blood cultures will be sent. He will be pancultured. Anti-infectives will be deescalated based on results of clinical and microbiologic data. I believe he is relatively intravascular volume depleted. I will order CVPs, but I will also schedule IV normal saline in the short term at 100 mL per hour probably for a total initially of about 3-4 liters and reevaluate. He is on GI prophylaxis. He will be placed on DVT prophylaxis. A quick venous thromboembolic disorder workup will be done. I will get bilateral lower extremity Dopplers and a D-dimer. Flu and pneumonia vaccinations will be addressed per protocol. Thank you very much for the consult, Dr. Costa. We will follow along with Dr. Vera. We will make further recommendations as picture progresses/becomes clearer. He is critically ill on life-sustaining interventions including mechanical ventilatory support and Levophed at very high risk of deterioration including . At this time, I spent about 40 minutes of critical care time without overlap and excluding any procedural time that may be necessary. JOB# [id number] ZOFIA/MARGIE BOOTH
[2018-11-12] MEDS: LEVOPHED DRIP 4 MG/NS 250 ML 4 MG/250 ML BAG IV SCH ×5 (03:07→23:10)
[2018-11-12 07:07] LABS: Hematocrit 34.9 % (35.5-45.6); Hemoglobin 11.8 gm/dl (11.8-15.2); Mean Corpuscular HGB Conc 34 % (32-34); Mean Corpuscular Volume 91 fl (84-94); Platelet Count 187 K/mm3 (140-440); Red Blood Count 3.85 M/mm3 (3.65-5.03); Red Cell Distribution Width 14.2 % (13.2-15.2)
[2018-11-12 07:08] LABS: Alanine Aminotransferase 11 units/L (7-56); BUN/Creatinine Ratio 78; Blood Urea Nitrogen 93 mg/dL (9-20); Calcium 7.9 mg/dL (8.4-10.2); Hemolysis Index 5
[2018-11-12 08:54] LABS: Basophils % (Manual) 0 % (0.0-1.8); Eosinophils % (Manual) 0 % (0.0-4.3); RBC Morphology Normal; Total Cells Counted 100
[2018-11-12] MEDS ORDERED: NON-FORMULARY (Multivitamin [Multiple Vitamins] 1 EACH) FEEDTUBE SCH (10:00)
[2018-11-12] MEDS ORDERED: BULGARICUS FEEDTUBE SCH (10:00)
[2018-11-12] MEDS ORDERED: NON-FORMULARY (Potassium Chloride [Potassium Chloride] 20 MEQ) FEEDTUBE SCH (10:00)
[2018-11-12] MEDS ORDERED: VITAMIN C FEEDTUBE SCH (10:00)
[2018-11-12] MEDS ORDERED: ACIDOPHILUS FEEDTUBE SCH (10:00)
[2018-11-12] MEDS ORDERED: NON-FORMULARY (Omeprazole [Omeprazole] 20 MG) FEEDTUBE SCH (10:00)
[2018-11-12] MEDS: POTASSIUM CHLORIDE FEEDTUBE SCH (10:22)
[2018-11-12] MEDS: Centrum Liq PO SCH (10:22)
[2018-11-12] MEDS: PREVACID SOLUTAB FEEDTUBE SCH (10:22)
[2018-11-12] MEDS: SODIUM CHLORIDE FLUSH SYRINGE 10 ML IV SCH ×2 (10:23→23:11)
--- NOTE | 2018-11-12 10:38 | Consultation ---
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 Pt is stuporous and unable to provide history. History taken from [facility] staff. As per SNF staff, the patient was found to be confused and nonresponsive. EMS notified and upon arrival the patient was found to be in distress. Pt transported to [facility] for further care and evaluation. Pt seen and evaluated in ED and found to have Sepsis secondary to UTI, Acute Renal Failure, Acute Hypoxemic Respiratory Failure. Pt admitted to ICU and initiated on sepsis protocol. seen last month intubated CTAP (11-11-18) bilat hydro (no obstructing stone), +gallstones,bladder mass---suspect BPH abd soft slade - clear urine creatinine 3.1 on admission---now 1.2 A/P sepsis multiple medical problems conservative mgmt Past History Past Medical History: COPD, diabetes, hypertension, stroke Past Surgical History: Other (G tube) Social history: single. denies: smoking, alcohol abuse, prescription drug abuse, IV drug use Family history: diabetes, hypertension Medications and Allergies Allergies Allergy/AdvReac Type Severity Reaction Status Date / Time No Known Allergies Allergy Verified 02/27/15 00:48 Home Medications Medication Instructions Recorded Confirmed Last Taken Type AtorvaSTATin [Lipitor] 40 mg FEEDTUBE QHS 06/21/16 11/11/18 06/20/16 History Ascorbic Acid [Vitamin C] 500 mg FEEDTUBE QDAY 07/14/18 11/11/18 Unknown History Aspirin [Adult Aspirin Regimen] 81 mg FEEDTUBE DAILY 07/14/18 11/11/18 Unknown History Ipratropium/Albuterol Sulfate 1 ampul IH Q6HR 07/14/18 11/11/18 Unknown History [DUONEB *Not for PRN Use*] Multivitamin [Multiple Vitamins] 1 each FEEDTUBE DAILY 07/14/18 11/11/18 Unknown History Protein Supplement [Promod] 30 ml FEEDTUBE Q8H 07/14/18 11/11/18 Unknown History Acetaminophen [Tylenol] 650 mg FEEDTUBE Q4HR PRN 11/11/18 11/11/18 Unknown History Gabapentin [Neurontin] 300 mg FEEDTUBE BID 11/11/18 11/11/18 Unknown History L. Acidophilus/L.bulgaricus 1 each FEEDTUBE QAM 11/11/18 11/11/18 Unknown History [Lactobacillus Tablet] Omeprazole 20 mg FEEDTUBE QAM 11/11/18 11/11/18 Unknown History Potassium Chloride 20 meq FEEDTUBE QDAY 11/11/18 11/11/18 Unknown History guaiFENesin DM [Robitussin Dm] 10 ml FEEDTUBE Q6HR PRN 11/11/18 11/11/18 Unknown History levoFLOXacin [Levaquin TAB] 500 mg FEEDTUBE QDAY 11/11/18 11/11/18 Unknown History Active Meds: Active Medications Acetaminophen (Tylenol) 650 mg FEEDTUBE Q4H PRN PRN Reason: Pain, Mild (1-3) Albuterol (Proventil) 2.5 mg IH Q3HRT PRN PRN Reason: Shortness Of Breath Ascorbic Acid (Vitamin C) 500 mg FEEDTUBE QDAY SHIRA Atorvastatin Calcium (Lipitor) 40 mg FEEDTUBE QHS SHIRA Last Admin: 11/11/18 21:48 Dose: 40 mg Documented by: Gabapentin (Neurontin) 300 mg PO BID SHIRA Last Admin: 11/11/18 21:48 Dose: 300 mg Documented by: Guaifenesin (Guaifenesin Dm Syrup) 10 ml FEEDTUBE Q6HR PRN PRN Reason: Cough Hydrophilic Ointment (Vaseline Lip Therapy) 1 applic TP Q2HR PRN PRN Reason: Dry Lips Cefepime HCl (Maxipime/Ns 2 Gm/100 Ml) 2 gm in 100 mls @ 200 mls/hr IV Q12HR SHIRA; Protocol Last Admin: 11/11/18 21:48 Dose: 200 mls/hr Documented by: Midazolam HCl 100 mg/ Sodium (Chloride) 100 mls @ 2 mls/hr IV TITR SHIRA; Protocol Norepinephrine (Levophed Drip 4 Mg/Ns 250 Ml) 4 mg in 250 mls @ 7.5 mls/hr IV TITR SHIRA; Protocol Last Titration: 11/12/18 08:31 Dose: 10 mcg/min, 37.5 mls/hr Documented by: Sodium Chloride (Nacl 0.9% 1000 Ml) 1,000 mls @ 100 mls/hr IV DIRECT SHIRA Stop: 11/15/18 03:59 Last Admin: 11/11/18 17:58 Dose: 100 mls/hr Documented by: Fentanyl Citrate (Fentanyl Drip Premix) 2,000 mcg in 100 mls @ 2.722 mls/hr IV TITR SHIRA; Protocol Lactobacillus Acidophilus (Floranex) 1 each PO QAM SHIRA Lansoprazole (Prevacid Solutab) 30 mg FEEDTUBE QDAY ON LICENSE OF [facility] Last Admin: 11/12/18 10:22 Dose: 30 mg Documented by: Midazolam HCl (Versed) 2 mg IV Q10MIN PRN PRN Reason: Sedation Last Admin: 11/11/18 23:27 Dose: 2 mg Documented by: Multi-Ingred Cream/Lotion/Oil/Oint (Artificial Tears Ophth Oint) 1 applic OU Q4HR PRN PRN Reason: Dry Eye(s) Multivitamins (Centrum Liq) 5 ml PO QDAY ON LICENSE OF [facility] Last Admin: 11/12/18 10:22 Dose: 5 ml Documented by: Potassium Chloride (Potassium Chloride) 20 meq FEEDTUBE QDAY ON LICENSE OF [facility] Last Admin: 11/12/18 10:22 Dose: 20 meq Documented by: Sodium Chloride (Sodium Chloride Flush Syringe 10 Ml) 10 ml IV BID ON LICENSE OF [facility] Last Admin: 11/12/18 10:23 Dose: 10 ml Documented by: Sodium Chloride (Sodium Chloride Flush Syringe 10 Ml) 10 ml IV PRN PRN PRN Reason: LINE FLUSH Exam - Constitutional Vitals: Temp Pulse Resp BP Pulse Ox 99.9 F H 93 H 25 H 101/63 99 11/12/18 02:54 11/12/18 08:25 11/12/18 06:50 11/12/18 08:25 11/12/18 08:25 Results - Labs CBC & Chem 7: 11/12/18 06:30 11/12/18 06:30 Labs: Abnormal lab results 11/11/18 11/11/18 11/11/18 Range/Units 09:55 10:22 12:04 WBC (4.5-11.0) K/mm3 Hct (35.5-45.6) % Seg Neuts % (Manual) (40.0-70.0) % Lymphocytes % (Manual) (13.4-35.0) % Seg Neutrophils # Man (1.8-7.7) K/mm3 Lymphocytes # (Manual) (1.2-5.4) K/mm3 D-Dimer (0-234) ng/mlDDU POC ABG pH 7.335 L (7.35-7.45) POC ABG pCO2 34.8 L (35-45) POC ABG pO2 55 L (80-105) Chloride (98-107) mmol/L Carbon Dioxide (22-30) mmol/L BUN 155 H (9-20) mg/dL Glucose (75-100) mg/dL POC Glucose (70-105) Calcium (8.4-10.2) mg/dL C-Reactive Protein (0.00-1.30) mg/dL Total Protein (6.3-8.2) g/dL Albumin (3.9-5) g/dL Urine pH 8.0 H (5.0-7.0) Urine WBC (Auto) > 182.0 H (0.0-6.0) /HPF 11/11/18 11/11/18 11/11/18 Range/Units 18:36 20:41 20:41 WBC (4.5-11.0) K/mm3 Hct (35.5-45.6) % Seg Neuts % (Manual) (40.0-70.0) % Lymphocytes % (Manual) (13.4-35.0) % Seg Neutrophils # Man (1.8-7.7) K/mm3 Lymphocytes # (Manual) (1.2-5.4) K/mm3 D-Dimer 2061.41 H (0-234) ng/mlDDU POC ABG pH 7.256 L (7.35-7.45) POC ABG pCO2 (35-45) POC ABG pO2 74 L (80-105) Chloride (98-107) mmol/L Carbon Dioxide (22-30) mmol/L BUN (9-20) mg/dL Glucose (75-100) mg/dL POC Glucose (70-105) Calcium (8.4-10.2) mg/dL C-Reactive Protein 13.70 H (0.00-1.30) mg/dL Total Protein (6.3-8.2) g/dL Albumin (3.9-5) g/dL Urine pH (5.0-7.0) Urine WBC (Auto) (0.0-6.0) /HPF 11/11/18 11/12/18 11/12/18 Range/Units 21:37 04:20 05:14 WBC (4.5-11.0) K/mm3 Hct (35.5-45.6) % Seg Neuts % (Manual) (40.0-70.0) % Lymphocytes % (Manual) (13.4-35.0) % Seg Neutrophils # Man (1.8-7.7) K/mm3 Lymphocytes # (Manual) (1.2-5.4) K/mm3 D-Dimer (0-234) ng/mlDDU POC ABG pH 7.328 L (7.35-7.45) POC ABG pCO2 32.9 L 27.6 L (35-45) POC ABG pO2 170 H (80-105) Chloride (98-107) mmol/L Carbon Dioxide (22-30) mmol/L BUN (9-20) mg/dL Glucose (75-100) mg/dL POC Glucose 176 H (70-105) Calcium (8.4-10.2) mg/dL C-Reactive Protein (0.00-1.30) mg/dL Total Protein (6.3-8.2) g/dL Albumin (3.9-5) g/dL Urine pH (5.0-7.0) Urine WBC (Auto) (0.0-6.0) /HPF 11/12/18 11/12/18 Range/Units 06:30 06:30 WBC 15.3 H (4.5-11.0) K/mm3 Hct 34.9 L (35.5-45.6) % Seg Neuts % (Manual) 94.0 H (40.0-70.0) % Lymphocytes % (Manual) 1.0 L (13.4-35.0) % Seg Neutrophils # Man 14.4 H (1.8-7.7) K/mm3 Lymphocytes # (Manual) 0.2 L (1.2-5.4) K/mm3 D-Dimer (0-234) ng/mlDDU POC ABG pH (7.35-7.45) POC ABG pCO2 (35-45) POC ABG pO2 (80-105) Chloride 113.2 H (98-107) mmol/L Carbon Dioxide 19 L (22-30) mmol/L BUN 93 H (9-20) mg/dL Glucose 182 H (75-100) mg/dL POC Glucose (70-105) Calcium 7.9 L (8.4-10.2) mg/dL C-Reactive Protein (0.00-1.30) mg/dL Total Protein 5.2 L (6.3-8.2) g/dL Albumin 2.0 L (3.9-5) g/dL Urine pH (5.0-7.0) Urine WBC (Auto) (0.0-6.0) /HPF
[2018-11-12] MEDS: MAXIPIME/NS 2 GM/100 ML 2 GM/100 ML BAG IV SCH ×2 (10:58→23:11)
[2018-11-12] MEDS: FLORANEX PO SCH (10:59)
[2018-11-12] MEDS: NEURONTIN PO SCH ×2 (10:59→23:11)
[2018-11-12] MEDS: VITAMIN C FEEDTUBE SCH (10:59)
--- NOTE | 2018-11-12 11:11 | Vascular Lab Report ---
FINAL REPORT EXAM: VL VENOUS DUPLEX LE BILAT HISTORY: swelling; pain TECHNIQUE: Elizabeth scale, color and pulsed Doppler ultrasound with color flow and spectral analysis yusuf luation of both lower extremities were performed to assess for deep vein thrombosis. PRIORS: None currently available. FINDINGS: RIGHT Extremity: There is normal grayscale appearance and compressibility. Normal phasic pulsed Doppler and normal color Doppler flow are visualized. The interrogated vessels s how normal augmentation. Left Extremity: There is normal grayscale appearance and compressibility. Normal phasic pulsed Doppler and normal color Doppler flow are visualized. The interrogated vessels s how normal augmentation. IMPRESSION: No evidence for DVT.
[2018-11-12] MEDS: HEPARIN SUB-Q SCH ×2 (13:14→23:12)
[2018-11-12] MEDS: NACL 0.9% 1000 ML 1,000 ML IV SCH (13:15)
[2018-11-12] MEDS: SOLU-Medrol IV SCH ×3 (13:42→23:11)
[2018-11-12 14:22] LABS: Monocytes # (Auto) 0.8 K/mm3 (0.0-0.8); Monocytes % (Auto) 5.7 % (0.0-7.3)
[2018-11-12] MEDS ORDERED: SODIUM BICARBONATE FEEDTUBE PRN (14:42)
[2018-11-12] MEDS ORDERED: SIMPLE SYRUP FEEDTUBE PRN ×2 (14:42)
[2018-11-12] MEDS ORDERED: PANCREAZE DR 10,500 UNIT FEEDTUBE PRN (14:42)
[2018-11-12] MEDS ORDERED: NACL 0.9% 1000 ML 1,000 ML IV SCH (15:00)
[2018-11-12] MEDS: HumaLOG SUB-Q SCH ×2 (15:09→18:31)
--- NOTE | 2018-11-12 15:57 | Progress Note ---
Assessment and Plan Assessment and plan: Sepsis. F/U Blood cx. sec UTI/PNA. Cont. Iv abx. IVF hydration. Acute hypoxemic resp failure. Cont. per Pulm. Etiology sec RLL PNA. However, elevated d-dimer--consider PE but Doppler negative. CTA chest when hemodynamically stable. Check Echo. UTi. Cont IV abx. F/U cx. CTAP (11-11-18) bilat hydro (no obstructing stone), bladder mass,Cystitis Toxic metabolic encephalopathy ARF. Etiology likely secondary to BETHEL secondary to atn/sepsis RLL Pneumonia. Cont Abx. History Interval history: 58 YO Male Alf Resident with HTN, DM, COPD, CVA with LHP, Contracture, and Dysphagia S/P G tube placement, DM, COPD, presents to ED for evaluation. Pt is stuporous and unable to provide history. History taken from SNF staff. As per SNF staff, the patient was found to be confused and nonresponsive. Pt seen and found to have Sepsis secondary to UTI, Acute Renal Failure, Acute Hypoxemic Respiratory Failure. Pt admitted to ICU and initiated on sepsis protocol. Hospitalist Physical - Constitutional Vitals: Temp Pulse Resp BP Pulse Ox 100.0 F H 89 25 H 93/53 97 11/12/18 12:00 11/12/18 13:11 11/12/18 13:11 11/12/18 13:11 11/12/18 13:11 General appearance: Present: severe distress, cachectic, disheveled - EENT Eyes: Present: PERRL, EOM intact ENT: hearing intact, clear oral mucosa, dentition normal - Neck Neck: Present: supple, normal ROM - Respiratory Respiratory effort: normal Respiratory: bilateral: CTA - Cardiovascular Rhythm: regular Heart Sounds: Present: S1 & S2. Absent: gallop, rub - Extremities Extremities: no ischemia, No edema, Full ROM - Abdominal General gastrointestinal: soft, non-tender, non-distended, normal bowel sounds - Integumentary Integumentary: Present: clear, warm, dry - Neurologic Neurologic: CNII-XII intact, moves all extremities Results - Labs CBC & Chem 7: 11/12/18 06:30 11/12/18 06:30 Labs: Laboratory Last Values WBC 15.3 K/mm3 (4.5-11.0) H 11/12/18 06:30 RBC 3.85 M/mm3 (3.65-5.03) 11/12/18 06:30 Hgb 11.8 gm/dl (11.8-15.2) 11/12/18 06:30 Hct 34.9 % (35.5-45.6) L 11/12/18 06:30 MCV 91 fl (84-94) 11/12/18 06:30 MCH 31 pg (28-32) 11/12/18 06:30 MCHC 34 % (32-34) 11/12/18 06:30 RDW 14.2 % (13.2-15.2) 11/12/18 06:30 Plt Count 187 K/mm3 (140-440) 11/12/18 06:30 Lymph % (Auto) 2.9 % (13.4-35.0) L 11/11/18 09:55 [place] % (Auto) 5.7 % (0.0-7.3) 11/12/18 06:30 Eos % (Auto) 0.0 % (0.0-4.3) 11/12/18 06:30 Baso % (Auto) 0.3 % (0.0-1.8) 11/11/18 09:55 Lymph # 0.3 K/mm3 (1.2-5.4) L 11/11/18 09:55 [place] # 0.8 K/mm3 (0.0-0.8) 11/12/18 06:30 Eos # 0.0 K/mm3 (0.0-0.4) 11/12/18 06:30 Baso # 0.0 K/mm3 (0.0-0.1) 11/12/18 06:30 Add Manual Diff Complete 11/12/18 06:30 Total Counted 100 11/12/18 06:30 Seg Neutrophils % Shell Molder 11/12/18 06:30 Seg Neuts % (Manual) 94.0 % (40.0-70.0) H 11/12/18 06:30 Band Neutrophils % 0 % 11/12/18 06:30 Lymphocytes % (Manual) 1.0 % (13.4-35.0) L 11/12/18 06:30 Reactive Lymphs % (Man) 0 % 11/12/18 06:30 Monocytes % (Manual) 5.0 % (0.0-7.3) 11/12/18 06:30 Eosinophils % (Manual) 0 % (0.0-4.3) 11/12/18 06:30 Basophils % (Manual) 0 % (0.0-1.8) 11/12/18 06:30 Metamyelocytes % 0 % 11/12/18 06:30 Myelocytes % 0 % 11/12/18 06:30 Promyelocytes % 0 % 11/12/18 06:30 Blast Cells % 0 % 11/12/18 06:30 Nucleated RBC % Not Reportable 11/12/18 06:30 Seg Neutrophils # 13.7 K/mm3 (1.8-7.7) H 11/12/18 06:30 Seg Neutrophils # Man 14.4 K/mm3 (1.8-7.7) H 11/12/18 06:30 Band Neutrophils # 0.0 K/mm3 11/12/18 06:30 Lymphocytes # (Manual) 0.2 K/mm3 (1.2-5.4) L 11/12/18 06:30 Abs React Lymphs (Man) 0.0 K/mm3 11/12/18 06:30 Monocytes # (Manual) 0.8 K/mm3 (0.0-0.8) 11/12/18 06:30 Eosinophils # (Manual) 0.0 K/mm3 (0.0-0.4) 11/12/18 06:30 Basophils # (Manual) 0.0 K/mm3 (0.0-0.1) 11/12/18 06:30 Metamyelocytes # 0.0 K/mm3 11/12/18 06:30 Myelocytes # 0.0 K/mm3 11/12/18 06:30 Promyelocytes # 0.0 K/mm3 11/12/18 06:30 Blast Cells # 0.0 K/mm3 11/12/18 06:30 WBC Morphology Not Reportable 11/12/18 06:30 Hypersegmented Neuts Not Reportable 11/12/18 06:30 Hyposegmented Neuts Not Reportable 11/12/18 06:30 Hypogranular Neuts Not Reportable 11/12/18 06:30 Smudge Cells Not Reportable 11/12/18 06:30 Toxic Granulation Not Reportable 11/12/18 06:30 Toxic Vacuolation Not Reportable 11/12/18 06:30 Dohle Bodies Not Reportable 11/12/18 06:30 Pelger-Huet Anomaly Not Reportable 11/12/18 06:30 Meghan Rods Not Reportable 11/12/18 06:30 Platelet Estimate Appears normal 11/12/18 06:30 Clumped Platelets Not Reportable 11/12/18 06:30 Plt Clumps, EDTA Not Reportable 11/12/18 06:30 Large Platelets Not Reportable 11/12/18 06:30 Giant Platelets Not Reportable 11/12/18 06:30 Platelet Satelliting Not Reportable 11/12/18 06:30 Plt Morphology Comment Not Reportable 11/12/18 06:30 RBC Morphology Normal 11/12/18 06:30 Dimorphic RBCs Not Reportable 11/12/18 06:30 Polychromasia Not Reportable 11/12/18 06:30 Hypochromasia Not Reportable 11/12/18 06:30 Poikilocytosis Not Reportable 11/12/18 06:30 Anisocytosis Not Reportable 11/12/18 06:30 Microcytosis Not Reportable 11/12/18 06:30 Macrocytosis Not Reportable 11/12/18 06:30 Spherocytes Not Reportable 11/12/18 06:30 Pappenheimer Bodies Not Reportable 11/12/18 06:30 Sickle Cells Not Reportable 11/12/18 06:30 Target Cells Not Reportable 11/12/18 06:30 Tear Drop Cells Not Reportable 11/12/18 06:30 Ovalocytes Not Reportable 11/12/18 06:30 Helmet Cells Not Reportable 11/12/18 06:30 [place] Bodies Not Reportable 11/12/18 06:30 Colbert Rings Not Reportable 11/12/18 06:30 [place] Cells Not Reportable 11/12/18 06:30 Bite Cells Not Reportable 11/12/18 06:30 Crenated Cell Not Reportable 11/12/18 06:30 Elliptocytes Not Reportable 11/12/18 06:30 Acanthocytes (Spur) Not Reportable 11/12/18 06:30 Rouleaux Not Reportable 11/12/18 06:30 Hemoglobin C Crystals Not Reportable 11/12/18 06:30 Schistocytes Not Reportable 11/12/18 06:30 Malaria parasites Not Reportable 11/12/18 06:30 [place] Bodies Not Reportable 11/12/18 06:30 Hem Pathologist Commnt No 11/12/18 06:30 D-Dimer 2061.41 ng/mlDDU (0-234) H 11/11/18 20:41 POC ABG pH 7.379 (7.35-7.45) 11/12/18 04:20 POC ABG pCO2 27.6 (35-45) L 11/12/18 04:20 POC ABG pO2 170 (80-105) H 11/12/18 04:20 POC ABG HCO3 16.3 11/12/18 04:20 POC ABG Total CO2 17 11/12/18 04:20 POC ABG O2 Sat 100 11/12/18 04:20 POC ABG Base Excess -9 11/12/18 04:20 VBG pH 7.343 (7.320-7.420) 11/11/18 15:04 FiO2 80 % 11/12/18 04:20 Sodium 143 mmol/L (137-145) D 11/12/18 06:30 Potassium 3.8 mmol/L (3.6-5.0) 11/12/18 06:30 Chloride 113.2 mmol/L (98-107) H 11/12/18 06:30 Carbon Dioxide 19 mmol/L (22-30) L 11/12/18 06:30 Anion Gap 15 mmol/L 11/12/18 06:30 BUN 93 mg/dL (9-20) H 11/12/18 06:30 Creatinine 1.2 mg/dL (0.8-1.5) D 11/12/18 06:30 Estimated GFR > 60 ml/min 11/12/18 06:30 BUN/Creatinine Ratio 78 % 11/12/18 06:30 Glucose 182 mg/dL (75-100) H 11/12/18 06:30 POC Glucose 201 (70-105) H 11/12/18 12:23 Lactic Acid 1.10 mmol/L (0.7-2.0) 11/11/18 23:19 Calcium 7.9 mg/dL (8.4-10.2) L 11/12/18 06:30 Total Bilirubin 0.40 mg/dL (0.1-1.2) 11/12/18 06:30 AST 17 units/L (5-40) 11/12/18 06:30 ALT 11 units/L (7-56) 11/12/18 06:30 Alkaline Phosphatase 72 units/L (35-129) 11/12/18 06:30 C-Reactive Protein 13.70 mg/dL (0.00-1.30) H 11/11/18 20:41 Total Protein 5.2 g/dL (6.3-8.2) L 11/12/18 06:30 Albumin 2.0 g/dL (3.9-5) L 11/12/18 06:30 Albumin/Globulin Ratio 0.6 % 11/12/18 06:30 TSH 0.900 mlU/mL (0.270-4.200) 11/11/18 09:55 Urine Color [place] (Yellow) 11/11/18 10:22 Urine Turbidity Turbid (Clear) 11/11/18 10:22 Urine pH 8.0 (5.0-7.0) H 11/11/18 10:22 Ur Specific [place] 1.011 (1.003-1.030) 11/11/18 10:22 Urine Protein 100 mg/dl mg/dL (Negative) 11/11/18 10:22 Urine Glucose (UA) Neg mg/dL (Negative) 11/11/18 10:22 Urine Ketones Neg mg/dL (Negative) 11/11/18 10:22 Urine Blood Sm (Negative) 11/11/18 10:22 Urine Nitrite Neg (Negative) 11/11/18 10:22 Urine Bilirubin Neg (Negative) 11/11/18 10:22 Urine Urobilinogen < 2.0 mg/dL (<2.0) 11/11/18 10:22 Ur Leukocyte Esterase Lg (Negative) 11/11/18 10:22 Urine WBC (Auto) > 182.0 /HPF (0.0-6.0) H 11/11/18 10:22 Urine RBC (Auto) 27.0 /HPF (0.0-6.0) 11/11/18 10:22 Urine Bacteria (Auto) 3+ /HPF (Negative) 11/11/18 10:22 Urine WBC Clumps 3+ /HPF 11/11/18 10:22 Urine Mucus Few /HPF 11/11/18 10:22 Plasma/Serum Alcohol < 0.01 % (0-0.07) 11/11/18 09:55 Nutrition/Malnutrition Assess - Dietary Evaluation Nutrition/Malnutrition Findings: Nutrition Notes Start: 11/12/18 09:27 Freq: Status: Active Protocol: Document 11/12/18 09:27 CP (Rec: 11/12/18 09:45 CP [id number]) Co-Sign 11/12/18 09:27 LP Nutrition Notes Need for Assessment generated from: MD Order Initial or Follow up Assessment Current Diagnosis Acute Kidney Injury COPD Sepsis Respiratory Failure Other Pertinent Diagnosis Dysphagia, DVT prophylaxis, AMS, UTI, bilateral hydronephrosis Current Diet NPO Labs/Tests BUN: 93 Glu: 182 PRO: 5.2 Pertinent Medications Reviewed Height 5 ft 7 in Weight 54.43 kg [place] Body Weight (kg) 67.27 BMI 18.8 Weight Status Appropriate Subjective/Other Information RD consulted for TF. Percent of energy/protein needs met: 0%/0% Burn Absent Trauma Absent #1 Nutrition Diagnosis Inadequate oral intake Etiology AMS, dysphagia, mechanical vent As Evidenced by Signs and Symptoms NPO status Is patient on ventilator? Yes Is Patient Ambulatory and/or Out of Bed No REE-([facility]-confined to bed) 1580.616 Calculation Used for Recommendations [facility] Additional Notes PRO: 65-109g (1.2-2 g/kg ABW) Fluid: 1 mL/kcal Nutrition Intervention Change Diet Order: TF Nutrition Support: Glucerna 1.2 at 55mL/hr Kcal 1,584 Protein (gm) 79 Fluid (mL) 1,063 Fiber (gm) 21 Goal #1 TF to meet at least 80% of PRO and energy needs. Goal #2 TF tolerance Follow-Up By: 11/15/18 Additional Comments F/U: TF start and TF tolerance
[2018-11-12] MEDS: DUONEB *Not for PRN Use IH SCH (16:03)
--- NOTE | 2018-11-12 16:12 | XRay Report ---
FINAL REPORT EXAM: XR CHEST 1V AP HISTORY: follow up respiratory failure TECHNIQUE: Frontal chest x-ray. PRIORS: Chest x-ray November 11, 2018. FINDINGS: Cardiac silhouette is within normal limits and stable. Aortic calcifications. Right infrahilar opacity is slightly decreased compared to the prior. No pneumothorax or effusion. Le ft lung remains clear. There are no suspicious osseous lesions. Right central line tip is in the SVC. Endotracheal tube is approximately 2.6 cm above the rachel. Recommend repositioning at 4 cm above the rachel. IMPRESSION: Mildly improved right infrahilar subsegmental atelectasis or infiltrate. Recommend repositioning of the endotracheal tube.
--- NOTE | 2018-11-12 16:42 | Consultation ---
History of Present Illness - Reason for Consult Consult date: 11/12/18 acute renal failure Requesting physician: MOISES BOO - History of Present Illness 58-year-old man with a history of diabetes mellitus, hypertension and cerebrovascular accident Dysphagia S/P G tube placement, COPD who was transferred from the care home. Brought because he was confused with altered mental status became unresponsive. Patient found to be septic presumably urinary tract infection and BUN/creatinine found to be elevated at 155/3.1 mg/dL. Consulted to assist in managing this. CT scan of the abdomen with pelvis showed diffusely irregular wall thickening with bilateral hydronephrosis and bilateral nonobstructive renal stones. There was also masslike area in the left superior bladder wall. Pt is stuporous and unable to provide history. Past History Past Medical History: COPD, diabetes, hypertension, stroke Past Surgical History: Other (G tube) Social history: single. denies: smoking, alcohol abuse, prescription drug abuse, IV drug use Family history: diabetes, hypertension Medications and Allergies Allergies Allergy/AdvReac Type Severity Reaction Status Date / Time No Known Allergies Allergy Verified 02/27/15 00:48 Home Medications Medication Instructions Recorded Confirmed Last Taken Type AtorvaSTATin [Lipitor] 40 mg FEEDTUBE QHS 06/21/16 11/11/18 06/20/16 History Ascorbic Acid [Vitamin C] 500 mg FEEDTUBE QDAY 07/14/18 11/11/18 Unknown History Aspirin [Adult Aspirin Regimen] 81 mg FEEDTUBE DAILY 07/14/18 11/11/18 Unknown History Ipratropium/Albuterol Sulfate 1 ampul IH Q6HR 07/14/18 11/11/18 Unknown History [DUONEB *Not for PRN Use*] Multivitamin [Multiple Vitamins] 1 each FEEDTUBE DAILY 07/14/18 11/11/18 Unknown History Protein Supplement [Promod] 30 ml FEEDTUBE Q8H 07/14/18 11/11/18 Unknown History Acetaminophen [Tylenol] 650 mg FEEDTUBE Q4HR PRN 11/11/18 11/11/18 Unknown History Gabapentin [Neurontin] 300 mg FEEDTUBE BID 11/11/18 11/11/18 Unknown History L. Acidophilus/L.bulgaricus 1 each FEEDTUBE QAM 11/11/18 11/11/18 Unknown History [Lactobacillus Tablet] Omeprazole 20 mg FEEDTUBE QAM 11/11/18 11/11/18 Unknown History Potassium Chloride 20 meq FEEDTUBE QDAY 11/11/18 11/11/18 Unknown History guaiFENesin DM [Robitussin Dm] 10 ml FEEDTUBE Q6HR PRN 11/11/18 11/11/18 Unknown History levoFLOXacin [Levaquin TAB] 500 mg FEEDTUBE QDAY 11/11/18 11/11/18 Unknown History Active Meds: Active Medications Acetaminophen (Tylenol) 650 mg FEEDTUBE Q4H PRN PRN Reason: Pain, Mild (1-3) Albuterol (Proventil) 2.5 mg IH Q3HRT PRN PRN Reason: Shortness Of Breath Albuterol/Ipratropium (Duoneb *Not For Prn Use*) 1 ampul IH Q8HRT [facility] Last Admin: 11/12/18 16:03 Dose: 1 ampul Documented by: Lipase/Protease/Amylase (Katie Lilly 10,500 Unit) 1 each FEEDTUBE PRN PRN PRN Reason: For Clogged Feeding Tube Ascorbic Acid (Vitamin C) 500 mg FEEDTUBE QDAY [facility] Last Admin: 11/12/18 10:59 Dose: 500 mg Documented by: Atorvastatin Calcium (Lipitor) 40 mg FEEDTUBE QHS [facility] Last Admin: 11/11/18 21:48 Dose: 40 mg Documented by: Gabapentin (Neurontin) 300 mg PO BID [facility] Last Admin: 11/12/18 10:59 Dose: 300 mg Documented by: Guaifenesin (Guaifenesin Dm Syrup) 10 ml FEEDTUBE Q6HR PRN PRN Reason: Cough Heparin Sodium (Porcine) (Heparin) 5,000 unit SUB-Q Q12HR [facility] Last Admin: 11/12/18 13:14 Dose: 5,000 unit Documented by: Hydrophilic Ointment (Vaseline Lip Therapy) 1 applic TP Q2HR PRN PRN Reason: Dry Lips Cefepime HCl (Maxipime/Ns 2 Gm/100 Ml) 2 gm in 100 mls @ 200 mls/hr IV Q12HR [facility]; Protocol Last Admin: 11/12/18 10:58 Dose: 200 mls/hr Documented by: Midazolam HCl 100 mg/ Sodium (Chloride) 100 mls @ 2 mls/hr IV TITR SHIRA; Protocol Norepinephrine (Levophed Drip 4 Mg/Ns 250 Ml) 4 mg in 250 mls @ 7.5 mls/hr IV TITR SHIRA; Protocol Last Admin: 11/12/18 15:05 Dose: 12 mcg/min, 45 mls/hr Documented by: Sodium Chloride (Nacl 0.9% 1000 Ml) 1,000 mls @ 100 mls/hr IV DIRECT SHIRA Stop: 11/15/18 03:59 Last Admin: 11/12/18 13:15 Dose: 100 mls/hr Documented by: Fentanyl Citrate (Fentanyl Drip Premix) 2,000 mcg in 100 mls @ 2.722 mls/hr IV TITR SHIRA; Protocol Sodium Chloride (Nacl 0.9% 1000 Ml) 1,000 mls @ 10 mls/hr IV DIRECT SHIRA Last Admin: 11/12/18 15:06 Dose: 10 mls/hr Documented by: Insulin Human Lispro (Humalog) 0 unit SUB-Q Q6HR [facility]; Protocol Last Admin: 11/12/18 15:09 Dose: 3 unit Documented by: Lactobacillus Acidophilus (Floranex) 1 each PO QAM [facility] Last Admin: 11/12/18 10:59 Dose: 1 each Documented by: Lansoprazole (Prevacid Solutab) 30 mg FEEDTUBE QDAY [facility] Last Admin: 11/12/18 10:22 Dose: 30 mg Documented by: Methylprednisolone Sodium Succinate (Solu-Medrol) 60 mg IV Q8HR [facility] Last Admin: 11/12/18 14:00 Dose: 60 mg Documented by: Midazolam HCl (Versed) 2 mg IV Q10MIN PRN PRN Reason: Sedation Last Admin: 11/11/18 23:27 Dose: 2 mg Documented by: Multi-Ingred Cream/Lotion/Oil/Oint (Artificial Tears Ophth Oint) 1 applic OU Q4HR PRN PRN Reason: Dry Eye(s) Multivitamins (Centrum Liq) 5 ml PO QDAY [facility] Last Admin: 11/12/18 10:22 Dose: 5 ml Documented by: Potassium Chloride (Potassium Chloride) 20 meq FEEDTUBE QDAY [facility] Last Admin: 11/12/18 10:22 Dose: 20 meq Documented by: Simple Syrup (Simple Syrup) 15 ml FEEDTUBE PRN PRN PRN Reason: Hypoglycemia Simple Syrup (Simple Syrup) 30 ml FEEDTUBE PRN PRN PRN Reason: Hypoglycemia Sodium Bicarbonate (Sodium Bicarbonate) 325 mg FEEDTUBE PRN PRN PRN Reason: For Clogged Feeding Tube Sodium Chloride (Sodium Chloride Flush Syringe 10 Ml) 10 ml IV BID [facility] Last Admin: 11/12/18 10:23 Dose: 10 ml Documented by: Sodium Chloride (Sodium Chloride Flush Syringe 10 Ml) 10 ml IV PRN PRN PRN Reason: LINE FLUSH Review of Systems ROS unobtainable: due to mental status Exam - Vital Signs Vital signs: Vital Signs Temp Pulse Resp BP Pulse Ox 98.7 F 119 H 25 H 101/62 96 11/11/18 10:22 11/11/18 10:22 11/11/18 10:22 11/11/18 10:11/11/18 10:22 - Physical Exam Narrative exam: Middle-aged male lying in bed intubated on the ventilator Asthenic biuld HEENT: NCAT, ETT intact Neck: Supple, no venous distention CVS: S1S2 RRR with no murmur, rub or gallop Chest: Clear to auscultation Abdomen: Protuberant, soft, nontender, no organomegaly, bowel sounds are present Extremities: No edema Skin:discoloration in feet Neuro: Not opening his Eyes, Results - Lab Results 11/12/18 06:30 11/12/18 06:30 Most recent lab results Calcium 7.9 mg/dL (8.4-10.2) L 11/12/18 06:30 Assessment and Plan - Patient Problems (1) Acute kidney injury Current Visit: No Status: Acute Plan to address problem: Acute kidney injury probably prerenal azotemia and obstructive uropathy improving with relief of obstruction and volume repletion. CT scan noted. Urology has been consulted. Continue volume repletion and vasopressor support. Follow-up electrolytes and renal function (2) Altered mental status Current Visit: Yes Status: Acute Plan to address problem: Toxic/metabolic encephalopathy. (3) History of CVA with residual deficit Current Visit: Yes Status: Acute (4) Hydronephrosis Current Visit: Yes Status: Acute Plan to address problem: Suspect secondary to bladder outlet obstruction. Masslike area in the bladder wall concerning. Urologist on board. (5) Sepsis Current Visit: Yes Status: Acute Qualifiers: Sepsis type: sepsis due to unspecified organism Qualified Code(s): A41.9 - Sepsis, unspecified organism Plan to address problem: Severe sepsis with hypotension on vasopressors. Continue volume repletion, anti biotics and maintained mean arterial pressure > 65 mmHg. (6) UTI (urinary tract infection) Current Visit: Yes Status: Acute Qualifiers: Encounter type: initial encounter Plan to address problem: Continue antibiotics. Follow up cultures (7) Acute respiratory failure Current Visit: Yes Status: Acute Plan to address problem: Continue ventilator management per pulmonary
--- NOTE | 2018-11-12 17:26 | Progress Note ---
Assessment and Plan Acute hypoxemic respiratory failure, on mechanical ventilatory support. Acute on chronic encephalopathy. Severe sepsis with shock, presumably due to UTI Urinary tract infection. Acute kidney injury. Likely bladder outlet obstruction. Bilateral hydronephrosis. Nephrolithiasis. History of diabetes. Hypertension. Chronic obstructive lung disease. Prior cerebrovascular accident with left hemiparesis. Oropharyngeal dysphagia. Metabolic acidosis. Hyponatremia, moderate. Adult failure to thrive. - retract ETT 2 cm's - continue IVNS at 100 mls/hr - continue to wean levophed for MAP > 65 mmHg - continue bronchodilators with pulmonary hygiene per RT - reduce set rate to 20/min - daily SBT assessment - daily SAT's - VAP bundle addressed - nephrology evaluation - continue slade catheter and follow urologist recommendations - begin enteral nutrition as tolerated - target sedation for RASS 0 to -1 - PT/OT/ROM exercises as tolerated - mobility protocol for pressure ulcer prophylaxis - continue GI & VTE prophylaxis - continue other care per attending / other consultants ...... re-evaluate in am & prn The high probability of a clinically significant, sudden or life threatening deterioration of the [cardiac, respiratory and neurologic] system(s) required my full and direct attention, intervention and personal management. The aggregate critical care time was [35] minutes. This time is in addition to time spent performing reported procedures but includes the following: [x] Data Review and interpretation [x] Patient assessment and monitoring of vital signs [x] Documentation [x] Medication orders and management Subjective Date of service: 11/12/18 Principal diagnosis: Acute Hypoxemic Resp Failure; Severe sepsis with shock; UTI; BETHEL Interval history: Patient is seen today for: Acute hypoxemic respiratory failure on mechanical ventilatory support; Acute on chronic encephalopathy; Severe sepsis with shock, presumably due to UTI; Urinary tract infection; Acute kidney injury. Seen and examined at bedside; 24hour events reviewed; nursing and respiratory ca re staff consulted; no adverse overnight events reported to me; resting peacefully in bed; intermittent agitation; AMS is persistent; remains on levophed and up-titrated to 12 mics/min; no emesis or overt aspiration Objective Vital Signs - 12hr 11/12/18 11/12/18 11/12/18 05:30 05:40 05:46 Temperature Pulse Rate 78 83 Pulse Rate [ Anterior Bilateral Throughout] Pulse Rate [ From Monitor] Respiratory 25 H 25 H Rate Respiratory Rate [Anterior Bilateral Throughout] Blood Pressure 102/68 102/68 O2 Sat by Pulse 100 100 100 Oximetry 11/12/18 11/12/18 11/12/18 05:50 06:00 06:10 Temperature Pulse Rate 83 81 83 Pulse Rate [ Anterior Bilateral Throughout] Pulse Rate [ From Monitor] Respiratory 25 H 25 H 25 H Rate Respiratory Rate [Anterior Bilateral Throughout] Blood Pressure 95/63 97/65 97/65 O2 Sat by Pulse 100 100 100 Oximetry 11/12/18 11/12/18 11/12/18 06:20 06:30 06:40 Temperature Pulse Rate 82 89 92 H Pulse Rate [ Anterior Bilateral Throughout] Pulse Rate [ From Monitor] Respiratory 25 H 25 H 25 H Rate Respiratory Rate [Anterior Bilateral Throughout] Blood Pressure 95/65 107/71 107/71 O2 Sat by Pulse 100 100 100 Oximetry 11/12/18 11/12/18 11/12/18 06:50 07:00 07:10 Temperature Pulse Rate 96 H 87 92 H Pulse Rate [ Anterior Bilateral Throughout] Pulse Rate [ From Monitor] Respiratory 25 H 25 H 25 H Rate Respiratory Rate [Anterior Bilateral Throughout] Blood Pressure 97/64 97/70 97/70 O2 Sat by Pulse 100 100 100 Oximetry 11/12/18 11/12/18 11/12/18 07:20 07:30 07:40 Temperature Pulse Rate 88 87 91 H Pulse Rate [ Anterior Bilateral Throughout] Pulse Rate [ From Monitor] Respiratory 25 H 25 H 25 H Rate Respiratory Rate [Anterior Bilateral Throughout] Blood Pressure 99/63 96/64 96/64 O2 Sat by Pulse 100 100 100 Oximetry 11/12/18 11/12/18 11/12/18 07:50 08:00 08:10 Temperature 99.7 F H Pulse Rate 91 H 88 91 H Pulse Rate [ Anterior Bilateral Throughout] Pulse Rate [ 97 H From Monitor] Respiratory 22 25 H 25 H Rate Respiratory Rate [Anterior Bilateral Throughout] Blood Pressure 99/63 94/65 94/65 O2 Sat by Pulse 100 100 100 Oximetry 11/12/18 11/12/18 11/12/18 08:20 08:25 08:30 Temperature Pulse Rate 88 93 H 93 H Pulse Rate [ Anterior Bilateral Throughout] Pulse Rate [ From Monitor] Respiratory 25 H 25 H Rate Respiratory Rate [Anterior Bilateral Throughout] Blood Pressure 101/63 101/63 101/63 O2 Sat by Pulse 99 99 96 Oximetry 11/12/18 11/12/18 11/12/18 08:40 08:51 09:00 Temperature Pulse Rate 100 H 100 H 95 H Pulse Rate [ Anterior Bilateral Throughout] Pulse Rate [ From Monitor] Respiratory 25 H 25 H 25 H Rate Respiratory Rate [Anterior Bilateral Throughout] Blood Pressure 107/68 107/68 109/69 O2 Sat by Pulse 93 93 96 Oximetry 11/12/18 11/12/18 11/12/18 09:11 09:21 09:30 Temperature Pulse Rate 94 H 92 H 91 H Pulse Rate [ Anterior Bilateral Throughout] Pulse Rate [ From Monitor] Respiratory 24 25 H 25 H Rate Respiratory Rate [Anterior Bilateral Throughout] Blood Pressure 109/69 105/67 105/71 O2 Sat by Pulse 98 99 99 Oximetry 11/12/18 11/12/18 11/12/18 09:41 09:51 10:00 Temperature Pulse Rate 101 H 90 90 Pulse Rate [ Anterior Bilateral Throughout] Pulse Rate [ From Monitor] Respiratory 25 H 25 H Rate Respiratory Rate [Anterior Bilateral Throughout] Blood Pressure 105/71 104/65 98/61 O2 Sat by Pulse 99 99 99 Oximetry 11/12/18 11/12/18 11/12/18 10:11 10:21 10:30 Temperature Pulse Rate 87 88 91 H Pulse Rate [ Anterior Bilateral Throughout] Pulse Rate [ From Monitor] Respiratory H 24 25 H Rate Respiratory Rate [Anterior Bilateral Throughout] Blood Pressure 98/61 98/64 104/69 O2 Sat by Pulse 99 99 98 Oximetry 11/12/18 11/12/18 11/12/18 10:41 10:51 11:00 Temperature Pulse Rate 89 90 94 H Pulse Rate [ Anterior Bilateral Throughout] Pulse Rate [ From Monitor] Respiratory H 23 25 H Rate Respiratory Rate [Anterior Bilateral Throughout] Blood Pressure 104/69 108/70 107/73 O2 Sat by Pulse 97 96 97 Oximetry 11/12/18 11/12/18 11/12/18 11:11 11:21 11:30 Temperature Pulse Rate 106 H 97 H 98 H Pulse Rate [ Anterior Bilateral Throughout] Pulse Rate [ From Monitor] Respiratory 26 H 25 H 25 H Rate Respiratory Rate [Anterior Bilateral Throughout] Blood Pressure 107/73 107/60 96/59 O2 Sat by Pulse 98 95 96 Oximetry 11/12/18 11/12/18 11/12/18 11:31 11:41 11:51 Temperature Pulse Rate 101 H 96 H 94 H Pulse Rate [ Anterior Bilateral Throughout] Pulse Rate [ From Monitor] Respiratory 25 H 25 H Rate Respiratory Rate [Anterior Bilateral Throughout] Blood Pressure 96/59 96/59 84/52 O2 Sat by Pulse 96 96 96 Oximetry 11/12/18 11/12/18 11/12/18 12:00 12:11 12:21 Temperature 100.0 F H Pulse Rate 92 H 94 H 94 H Pulse Rate [ Anterior Bilateral Throughout] Pulse Rate [ 90 From Monitor] Respiratory 25 H 25 H 25 H Rate Respiratory Rate [Anterior Bilateral Throughout] Blood Pressure 85/51 85/58 89/53 O2 Sat by Pulse 96 97 97 Oximetry 11/12/18 11/12/18 11/12/18 12:30 12:41 12:51 Temperature Pulse Rate 92 H 95 H 94 H Pulse Rate [ Anterior Bilateral Throughout] Pulse Rate [ From Monitor] Respiratory 25 H 25 H 25 H Rate Respiratory Rate [Anterior Bilateral Throughout] Blood Pressure 91/58 91/58 101/61 O2 Sat by Pulse 97 97 98 Oximetry 11/12/18 11/12/18 11/12/18 13:00 13:11 13:20 Temperature Pulse Rate 91 H 89 91 H Pulse Rate [ Anterior Bilateral Throughout] Pulse Rate [ From Monitor] Respiratory 25 H 25 H 25 H Rate Respiratory Rate [Anterior Bilateral Throughout] Blood Pressure 93/53 93/53 93/53 O2 Sat by Pulse 97 97 97 Oximetry 11/12/18 11/12/18 11/12/18 13:30 13:41 13:51 Temperature Pulse Rate 93 H 93 H 91 H Pulse Rate [ Anterior Bilateral Throughout] Pulse Rate [ From Monitor] Respiratory 25 H 20 20 Rate Respiratory Rate [Anterior Bilateral Throughout] Blood Pressure 105/60 96/53 102/58 O2 Sat by Pulse 97 97 96 Oximetry 11/12/18 11/12/18 11/12/18 14:00 14:11 14:21 Temperature Pulse Rate 92 H 90 91 H Pulse Rate [ Anterior Bilateral Throughout] Pulse Rate [ From Monitor] Respiratory 20 20 20 Rate Respiratory Rate [Anterior Bilateral Throughout] Blood Pressure 92/53 92/53 96/52 O2 Sat by Pulse 96 97 97 Oximetry 11/12/18 11/12/18 11/12/18 14:30 14:41 14:51 Temperature Pulse Rate 90 89 107 H Pulse Rate [ Anterior Bilateral Throughout] Pulse Rate [ From Monitor] Respiratory 20 20 16 Rate Respiratory Rate [Anterior Bilateral Throughout] Blood Pressure 93/52 93/52 84/49 O2 Sat by Pulse 97 97 99 Oximetry 11/12/18 11/12/18 11/12/18 15:00 15:11 15:21 Temperature Pulse Rate 93 H 93 H 94 H Pulse Rate [ Anterior Bilateral Throughout] Pulse Rate [ From Monitor] Respiratory 23 22 21 Rate Respiratory Rate [Anterior Bilateral Throughout] Blood Pressure 86/59 96/52 85/61 O2 Sat by Pulse 95 96 97 Oximetry 11/12/18 11/12/18 11/12/18 15:30 15:41 15:51 Temperature Pulse Rate 89 86 87 Pulse Rate [ Anterior Bilateral Throughout] Pulse Rate [ From Monitor] Respiratory 20 20 20 Rate Respiratory Rate [Anterior Bilateral Throughout] Blood Pressure 95/59 95/59 91/56 O2 Sat by Pulse 97 98 98 Oximetry 11/12/18 11/12/18 11/12/18 16:00 16:01 16:03 Temperature 99.5 F Pulse Rate 87 86 Pulse Rate [ 86 Anterior Bilateral Throughout] Pulse Rate [ From Monitor] Respiratory 20 Rate Respiratory 20 Rate [Anterior Bilateral Throughout] Blood Pressure 87/56 87/56 O2 Sat by Pulse 98 98 Oximetry 11/12/18 11/12/18 11/12/18 16:11 16:18 16:20 Temperature Pulse Rate 91 H 92 H Pulse Rate [ 92 H Anterior Bilateral Throughout] Pulse Rate [ From Monitor] Respiratory 23 21 Rate Respiratory 20 Rate [Anterior Bilateral Throughout] Blood Pressure 87/56 89/62 O2 Sat by Pulse 100 100 Oximetry 11/12/18 11/12/18 11/12/18 16:30 16:41 16:59 Temperature Pulse Rate 93 H 87 Pulse Rate [ Anterior Bilateral Throughout] Pulse Rate [ 83 From Monitor] Respiratory 22 20 22 Rate Respiratory Rate [Anterior Bilateral Throughout] Blood Pressure 93/63 93/63 O2 Sat by Pulse 98 98 98 Oximetry Constitutional: appears uncomfortable, other (elderly, chronically ill looking CM, normocephalic and atraumatic with increased respiratory effort at rest) Eyes: non-icteric ENT: oropharynx moist, other (ETT 24 cm AMA) Neck: supple, no lymphadenopathy, no JVD, other (no thyromegaly) Effort: mildly labored Ascultation: Bilateral: diminished breath sounds, rhonchi Percussion: Bilateral: not dull Cardiovascular: regular rate and rhythm Gastrointestinal: normoactive bowel sounds, soft, non-tender, non-distended Integumentary: rash, other (poor turgor; decubitus ulcer) Extremities: no edema, pink and warm, pulses normal, other (? early digital gangrene) Neurologic: non-focal exam, unable to assess Psychiatric: other (unable to assess) CBC and BMP: 11/12/18 06:30 11/12/18 06:30 ABG, PT/INR, D-dimer: ABG POC ABG pH 7.379 (7.35-7.45) 11/12/18 04:20 POC ABG pCO2 27.6 (35-45) L 11/12/18 04:20 POC ABG pO2 170 (80-105) H 11/12/18 04:20 POC ABG HCO3 16.3 11/12/18 04:20 POC ABG Total CO2 17 11/12/18 04:20 POC ABG O2 Sat 100 11/12/18 04:20 PT/INR, D-dimer D-Dimer 2061.41 ng/mlDDU (0-234) H 11/11/18 20:41 Abnormal lab findings: Abnormal Labs 11/11/18 11/11/18 11/11/18 09:55 09:55 10:22 WBC Hct MCHC 35 H Lymph % (Auto) 2.9 L [place] % (Auto) 9.8 H Lymph # 0.3 L [place] # 1.0 H Seg Neutrophils % 87.0 H Seg Neuts % (Manual) Lymphocytes % (Manual) Seg Neutrophils # 8.7 H Seg Neutrophils # Man Lymphocytes # (Manual) D-Dimer POC ABG pH POC ABG pCO2 POC ABG pO2 Sodium 129 L Chloride 95.5 L Carbon Dioxide 18 L BUN 155 H Creatinine 3.1 H Glucose 196 H POC Glucose Calcium C-Reactive Protein Total Protein Albumin 2.4 L Urine pH 8.0 H Urine WBC (Auto) > 182.0 H 11/11/18 11/11/18 11/11/18 12:04 18:36 20:41 WBC Hct MCHC Lymph % (Auto) [place] % (Auto) Lymph # [place] # Seg Neutrophils % Seg Neuts % (Manual) Lymphocytes % (Manual) Seg Neutrophils # Seg Neutrophils # Man Lymphocytes # (Manual) D-Dimer POC ABG pH 7.335 L 7.256 L POC ABG pCO2 34.8 L POC ABG pO2 55 L 74 L Sodium Chloride Carbon Dioxide BUN Creatinine Glucose POC Glucose Calcium C-Reactive Protein 13.70 H Total Protein Albumin Urine pH Urine WBC (Auto) 11/11/18 11/11/18 11/12/18 20:41 21:37 04:20 WBC Hct MCHC Lymph % (Auto) [place] % (Auto) Lymph # [place] # Seg Neutrophils % Seg Neuts % (Manual) Lymphocytes % (Manual) Seg Neutrophils # Seg Neutrophils # Man Lymphocytes # (Manual) D-Dimer 2061.41 H POC ABG pH 7.328 L POC ABG pCO2 32.9 L 27.6 L POC ABG pO2 170 H Sodium Chloride Carbon Dioxide BUN Creatinine Glucose POC Glucose Calcium C-Reactive Protein Total Protein Albumin Urine pH Urine WBC (Auto) 11/12/18 11/12/18 11/12/18 05:14 06:30 06:30 WBC 15.3 H Hct 34.9 L MCHC Lymph % (Auto) [place] % (Auto) Lymph # [place] # Seg Neutrophils % Seg Neuts % (Manual) 94.0 H Lymphocytes % (Manual) 1.0 L Seg Neutrophils # 13.7 H Seg Neutrophils # Man 14.4 H Lymphocytes # (Manual) 0.2 L D-Dimer POC ABG pH POC ABG pCO2 POC ABG pO2 Sodium Chloride 113.2 H Carbon Dioxide 19 L BUN 93 H Creatinine Glucose 182 H POC Glucose 176 H Calcium 7.9 L C-Reactive Protein Total Protein 5.2 L Albumin 2.0 L Urine pH Urine WBC (Auto) 11/12/18 12:23 WBC Hct MCHC Lymph % (Auto) [place] % (Auto) Lymph # [place] # Seg Neutrophils % Seg Neuts % (Manual) Lymphocytes % (Manual) Seg Neutrophils # Seg Neutrophils # Man Lymphocytes # (Manual) D-Dimer POC ABG pH POC ABG pCO2 POC ABG pO2 Sodium Chloride Carbon Dioxide BUN Creatinine Glucose POC Glucose 201 H Calcium C-Reactive Protein Total Protein Albumin Urine pH Urine WBC (Auto) Chest x-ray: image reviewed (ETT running close to rachel) Allied health notes reviewed: nursing
[2018-11-13] MEDS: DUONEB *Not for PRN Use IH SCH ×5 (00:01→23:03)
[2018-11-13] MEDS: NACL 0.9% 1000 ML 1,000 ML IV SCH ×2 (00:21→10:15)
[2018-11-13] MEDS: HumaLOG SUB-Q SCH ×5 (02:32→23:21)
[2018-11-13] MEDS: LEVOPHED DRIP 4 MG/NS 250 ML 4 MG/250 ML BAG IV SCH ×2 (04:20→11:27)
[2018-11-13 05:32] LABS: Hematocrit 32.8 % (35.5-45.6); Hemoglobin 11.3 gm/dl (11.8-15.2); Mean Corpuscular HGB Conc 34 % (32-34); Mean Corpuscular Volume 91 fl (84-94); Platelet Count 200 K/mm3 (140-440); Red Blood Count 3.62 M/mm3 (3.65-5.03); Red Cell Distribution Width 14.3 % (13.2-15.2)
[2018-11-13 05:48] LABS: BUN/Creatinine Ratio 74; Blood Urea Nitrogen 52 mg/dL (9-20); Calcium 7.8 mg/dL (8.4-10.2); Hemolysis Index 4
[2018-11-13] MEDS: SOLU-Medrol IV SCH ×3 (06:19→21:11)
[2018-11-13 07:04] LABS: Anisocytosis Few; Band Neutrophils # (Manual) 0.3 K/mm3; Basophils % (Manual) 0 % (0.0-1.8); Eosinophils % (Manual) 0 % (0.0-4.3); Total Cells Counted 100
--- NOTE | 2018-11-13 07:31 | XRay Report ---
FINAL REPORT PROCEDURE: XR CHEST 1V AP TECHNIQUE: Chest radiograph anteroposterior view. CPT 00306 HISTORY: follow up respiratory failure COMPARISON: 11/12/2018 FINDINGS: Heart: Normal. Mediastinum/Vessels: Normal. Lungs/Pleural space: There is atelectasis at the right lung base similar to the prior study. There ar e no acute infiltrates, effusions or pneumothoraces. Bony thorax: No acute osseous abnormality. Life support devices: There is an endotracheal tube. The tip is approximately 6 centimeters above the rachel. There is a right-sided central venous catheter. The tip is in the superior vena cava.. IMPRESSION: The heart size is normal.. There is atelectasis at the right lung base similar to the prior study. There are no acute infiltrate s, effusions or pneumothoraces. There is an endotracheal tube. The tip is approximately 6 centimeters above the rachel. There is a ri ght-sided central venous catheter. The tip is in the superior vena cava..
[2018-11-13] MEDS: POTASSIUM CHLORIDE FEEDTUBE SCH (10:07)
[2018-11-13] MEDS: Centrum Liq PO SCH (10:07)
[2018-11-13] MEDS: SODIUM CHLORIDE FLUSH SYRINGE 10 ML IV SCH ×2 (10:07→21:12)
[2018-11-13] MEDS: VITAMIN C FEEDTUBE SCH (10:07)
[2018-11-13] MEDS: PREVACID SOLUTAB FEEDTUBE SCH (10:07)
[2018-11-13] MEDS: FLORANEX PO SCH (10:07)
[2018-11-13] MEDS: MAXIPIME/NS 2 GM/100 ML 2 GM/100 ML BAG IV SCH ×2 (10:08→21:11)
[2018-11-13] MEDS: HEPARIN SUB-Q SCH ×2 (10:09→21:25)
--- NOTE | 2018-11-13 10:50 | Progress Note ---
Assessment and Plan - Patient Problems (1) Acute kidney injury Current Visit: No Status: Acute Plan to address problem: Acute kidney injury probably prerenal azotemia and obstructive uropathy improving with relief of obstruction and volume repletion. Kidney function is improving. Urology has been consulted. Continue volume repletion and vasopressor support. Follow-up electrolytes and renal function (2) Hypernatremia Current Visit: Yes Status: Acute Plan to address problem: Give free water via the feeding tube and when hemodynamically stable change IV fluid isotonic saline to hypotonic fluids. Discussed with RN at bedside (3) Hypophosphatemia Current Visit: Yes Status: Acute Plan to address problem: Supplement phosphorus and follow-up level (4) Altered mental status Current Visit: Yes Status: Acute Plan to address problem: Toxic/metabolic encephalopathy. (5) History of CVA with residual deficit Current Visit: Yes Status: Acute (6) Hydronephrosis Current Visit: Yes Status: Acute Plan to address problem: Suspect secondary to bladder outlet obstruction. Masslike area in the bladder wall concerning. Urologist on board. (7) Sepsis Current Visit: Yes Status: Acute Qualifiers: Sepsis type: sepsis due to unspecified organism Qualified Code(s): A41.9 - Sepsis, unspecified organism Plan to address problem: Severe sepsis with hypotension on vasopressors. Sputum growing MRSA. Continue volume repletion, antibiotics and maintained mean arterial pressure > 65 mmHg. wean vasopressors as tolerated (8) UTI (urinary tract infection) Current Visit: Yes Status: Acute Qualifiers: Encounter type: initial encounter Plan to address problem: Continue antibiotics. Follow up cultures (9) Acute respiratory failure Current Visit: Yes Status: Acute Plan to address problem: Continue ventilator management per pulmonary Subjective Date of service: 11/13/18 Principal diagnosis: Acute Hypoxemic Resp Failure; Severe sepsis with shock; UTI; BETHEL Interval history: Patient seen lying in bed. Intubated on ventilator. Not following commands Objective - Exam Narrative Exam: Middle-aged male lying in bed intubated on the ventilator Asthenic biuld HEENT: NCAT, ETT intact Neck: Supple, no venous distention CVS: S1S2 RRR with no murmur, rub or gallop Chest: Clear to auscultation Abdomen: Protuberant, soft, nontender, no organomegaly, bowel sounds are present Extremities: No edema Skin:discoloration in feet/legs Neuro: Not opening his Eyes, - Vital Signs Vital signs: Vital Signs - 12hr 11/12/18 11/12/18 11/12/18 23:00 23:15 23:28 Temperature 100.7 F H Pulse Rate 83 83 Pulse Rate [ Anterior Bilateral Throughout] Pulse Rate [ From Monitor] Respiratory 21 19 Rate Respiratory Rate [Anterior Bilateral Throughout] Blood Pressure 105/63 106/65 O2 Sat by Pulse 98 98 Oximetry 11/12/18 11/12/18 11/13/18 23:30 23:45 00:00 Temperature Pulse Rate 84 73 68 Pulse Rate [ Anterior Bilateral Throughout] Pulse Rate [ 67 From Monitor] Respiratory 22 20 20 Rate Respiratory Rate [Anterior Bilateral Throughout] Blood Pressure 107/65 98/57 94/55 O2 Sat by Pulse 98 97 97 Oximetry 11/13/18 11/13/18 11/13/18 00:01 00:14 00:15 Temperature Pulse Rate 84 Pulse Rate [ 67 74 Anterior Bilateral Throughout] Pulse Rate [ From Monitor] Respiratory 14 Rate Respiratory 20 20 Rate [Anterior Bilateral Throughout] Blood Pressure 117/66 O2 Sat by Pulse 100 Oximetry 11/13/18 11/13/18 11/13/18 00:30 00:45 01:00 Temperature Pulse Rate 93 H 94 H 96 H Pulse Rate [ Anterior Bilateral Throughout] Pulse Rate [ From Monitor] Respiratory 16 19 19 Rate Respiratory Rate [Anterior Bilateral Throughout] Blood Pressure 120/66 100/59 96/64 O2 Sat by Pulse 97 97 97 Oximetry 11/13/18 11/13/18 11/13/18 01:15 01:30 01:45 Temperature Pulse Rate 89 94 H 84 Pulse Rate [ Anterior Bilateral Throughout] Pulse Rate [ From Monitor] Respiratory 20 23 20 Rate Respiratory Rate [Anterior Bilateral Throughout] Blood Pressure 102/63 117/66 99/36 O2 Sat by Pulse 97 97 96 Oximetry 11/13/18 11/13/18 11/13/18 02:00 02:15 02:28 Temperature 98.8 F Pulse Rate 81 75 Pulse Rate [ Anterior Bilateral Throughout] Pulse Rate [ From Monitor] Respiratory 20 20 Rate Respiratory Rate [Anterior Bilateral Throughout] Blood Pressure 99/51 97/57 O2 Sat by Pulse 96 96 Oximetry 11/13/18 11/13/18 11/13/18 02:30 02:45 03:00 Temperature Pulse Rate 74 78 78 Pulse Rate [ Anterior Bilateral Throughout] Pulse Rate [ From Monitor] Respiratory 20 20 20 Rate Respiratory Rate [Anterior Bilateral Throughout] Blood Pressure 102/58 100/55 95/57 O2 Sat by Pulse 96 95 96 Oximetry 11/13/18 11/13/18 11/13/18 03:15 03:30 03:45 Temperature Pulse Rate 95 H 92 H 91 H Pulse Rate [ Anterior Bilateral Throughout] Pulse Rate [ From Monitor] Respiratory 27 H 20 20 Rate Respiratory Rate [Anterior Bilateral Throughout] Blood Pressure 115/62 110/67 104/64 O2 Sat by Pulse 95 96 96 Oximetry 11/13/18 11/13/18 11/13/18 04:00 04:15 04:30 Temperature Pulse Rate 89 88 85 Pulse Rate [ Anterior Bilateral Throughout] Pulse Rate [ 89 From Monitor] Respiratory 20 20 22 Rate Respiratory Rate [Anterior Bilateral Throughout] Blood Pressure 105/63 106/62 108/66 O2 Sat by Pulse 97 97 97 Oximetry 11/13/18 11/13/18 11/13/18 04:41 04:45 05:00 Temperature Pulse Rate 89 92 H 91 H Pulse Rate [ Anterior Bilateral Throughout] Pulse Rate [ From Monitor] Respiratory 20 23 Rate Respiratory Rate [Anterior Bilateral Throughout] Blood Pressure 108/66 118/70 113/72 O2 Sat by Pulse 97 100 97 Oximetry 11/13/18 11/13/18 11/13/18 05:15 05:30 05:45 Temperature Pulse Rate 91 H 91 H 92 H Pulse Rate [ Anterior Bilateral Throughout] Pulse Rate [ From Monitor] Respiratory 21 22 21 Rate Respiratory Rate [Anterior Bilateral Throughout] Blood Pressure 115/73 121/72 121/72 O2 Sat by Pulse 97 98 96 Oximetry 11/13/18 11/13/18 11/13/18 06:01 06:15 06:30 Temperature Pulse Rate 94 H 95 H 90 Pulse Rate [ Anterior Bilateral Throughout] Pulse Rate [ From Monitor] Respiratory 23 22 22 Rate Respiratory Rate [Anterior Bilateral Throughout] Blood Pressure 121/72 119/71 116/69 O2 Sat by Pulse 97 97 97 Oximetry 11/13/18 11/13/18 11/13/18 06:45 07:00 07:15 Temperature Pulse Rate 88 84 101 H Pulse Rate [ Anterior Bilateral Throughout] Pulse Rate [ From Monitor] Respiratory 22 21 24 Rate Respiratory Rate [Anterior Bilateral Throughout] Blood Pressure 119/69 117/73 123/74 O2 Sat by Pulse 97 98 98 Oximetry 11/13/18 11/13/18 11/13/18 07:30 07:45 08:00 Temperature 97.1 F L Pulse Rate 92 H 86 80 Pulse Rate [ Anterior Bilateral Throughout] Pulse Rate [ 86 From Monitor] Respiratory 23 20 20 Rate Respiratory Rate [Anterior Bilateral Throughout] Blood Pressure 119/75 117/73 116/71 O2 Sat by Pulse 98 98 97 Oximetry 11/13/18 11/13/18 11/13/18 08:15 08:24 08:29 Temperature Pulse Rate 81 81 Pulse Rate [ 85 Anterior Bilateral Throughout] Pulse Rate [ From Monitor] Respiratory 20 20 Rate Respiratory 22 Rate [Anterior Bilateral Throughout] Blood Pressure 106/74 115/69 O2 Sat by Pulse 98 98 Oximetry 11/13/18 11/13/18 11/13/18 08:30 08:39 08:45 Temperature Pulse Rate 85 88 Pulse Rate [ 87 Anterior Bilateral Throughout] Pulse Rate [ From Monitor] Respiratory 24 21 Rate Respiratory 21 Rate [Anterior Bilateral Throughout] Blood Pressure 117/68 115/69 O2 Sat by Pulse 97 96 Oximetry 11/13/18 11/13/18 11/13/18 09:00 09:15 09:30 Temperature Pulse Rate 88 86 85 Pulse Rate [ Anterior Bilateral Throughout] Pulse Rate [ From Monitor] Respiratory 21 22 20 Rate Respiratory Rate [Anterior Bilateral Throughout] Blood Pressure 117/70 115/69 122/71 O2 Sat by Pulse 97 97 97 Oximetry 11/13/18 09:45 Temperature Pulse Rate 82 Pulse Rate [ Anterior Bilateral Throughout] Pulse Rate [ From Monitor] Respiratory 23 Rate Respiratory Rate [Anterior Bilateral Throughout] Blood Pressure 119/71 O2 Sat by Pulse 98 Oximetry - Lab 11/13/18 05:20 11/13/18 05:20 Most recent lab results Calcium 7.8 mg/dL (8.4-10.2) L 11/13/18 05:20 Phosphorus 1.90 mg/dL (2.5-4.5) L 11/13/18 05:20 Magnesium 2.10 mg/dL (1.7-2.3) 11/13/18 05:20 Medications & Allergies - Medications Allergies/Adverse Reactions: Allergies No Known Allergies Allergy (Verified 02/27/15 00:48) Home Medications: Home Medications Medication Instructions Recorded Confirmed Last Taken Type AtorvaSTATin [Lipitor] 40 mg FEEDTUBE QHS 1011/11/18 06/20/16 History Ascorbic Acid [Vitamin C] 500 mg FEEDTUBE QDAY 07/14/18 11/11/18 Unknown History Aspirin [Adult Aspirin Regimen] 81 mg FEEDTUBE DAILY 07/14/18 11/11/18 Unknown History Ipratropium/Albuterol Sulfate 1 ampul IH Q6HR 07/14/18 11/11/18 Unknown History [DUONEB *Not for PRN Use*] Multivitamin [Multiple Vitamins] 1 each FEEDTUBE DAILY 07/14/18 11/11/18 Unknown History Protein Supplement [Promod] 30 ml FEEDTUBE Q8H 07/14/18 11/11/18 Unknown History Acetaminophen [Tylenol] 650 mg FEEDTUBE Q4HR PRN 11/11/18 11/11/18 Unknown History Gabapentin [Neurontin] 300 mg FEEDTUBE BID 11/11/18 11/11/18 Unknown History L. Acidophilus/L.bulgaricus 1 each FEEDTUBE QAM 11/11/18 11/11/18 Unknown History [Lactobacillus Tablet] Omeprazole 20 mg FEEDTUBE QAM 11/11/18 11/11/18 Unknown History Potassium Chloride 20 meq FEEDTUBE QDAY 11/11/18 11/11/18 Unknown History guaiFENesin DM [Robitussin Dm] 10 ml FEEDTUBE Q6HR PRN 11/11/18 11/11/18 Unknown History levoFLOXacin [Levaquin TAB] 500 mg FEEDTUBE QDAY 11/11/18 11/11/18 Unknown History Active Medications: Generic Name Dose Route Start Last Admin Trade Name Freq PRN Reason Stop Dose Admin Acetaminophen 650 mg 11/11/18 16:44 Tylenol FEEDTUBE Q4H PRN Pain, Mild (1-3) Albuterol 2.5 mg 11/11/18 15:42 Proventil IH Q3HRT PRN Shortness Of Breath Albuterol/Ipratropium 1 ampul 11/12/18 16:00 11/13/18 08:28 Duoneb *Not For Prn Use* IH 1 ampul Q8HRT SHIRA Administration Lipase/Protease/Amylase 1 each 11/12/18 14:42 Pancredonovan Lilly 10,500 Unit FEEDTUBE PRN PRN For Clogged Feeding Tube Ascorbic Acid 500 mg 11/12/18 10:00 11/13/18 10:07 Vitamin C FEEDTUBE 500 mg QDAY SHIRA Administration Atorvastatin Calcium 40 mg 11/11/18 22:00 11/12/18 23:12 Lipitor FEEDTUBE 40 mg QHS SHIRA Administration Gabapentin 300 mg 11/12/18 22:00 11/12/18 23:11 Neurontin PO 300 mg QHS SHIRA Administration Guaifenesin 10 ml 11/11/18 15:53 Guaifenesin Dm Syrup FEEDTUBE Q6HR PRN Cough Heparin Sodium (Porcine) 5,000 unit 11/12/18 14:00 11/13/18 10:09 Heparin SUB-Q 5,000 unit Q12HR SHIRA Administration Hydrophilic Ointment 1 applic 11/11/18 16:03 Vaseline Lip Therapy TP Q2HR PRN Dry Lips Cefepime HCl 2 gm in 100 mls @ 200 mls/hr 11/11/18 22:00 11/13/18 10:08 Maxipime/Ns 2 Gm/100 Ml IV 200 mls/hr Q12HR SHIRA Administration Protocol Midazolam HCl 100 mg/ Sodium 100 mls @ 2 mls/hr 11/11/18 17:00 Chloride IV TITR SHIRA Protocol 2 MG/HR Norepinephrine 4 mg in 250 mls @ 7.5 mls/hr 11/11/18 16:36 11/13/18 10:23 Levophed Drip 4 Mg/Ns 250 Ml IV 8 mcg/min TITR SHIRA 30 mls/hr Titration Protocol 2 MCG/MIN Sodium Chloride 1,000 mls @ 100 mls/hr 11/11/18 18:00 11/13/18 10:15 Nacl 0.9% 1000 Ml IV 11/15/18 03:59 100 mls/hr DIRECT SHIRA Administration Fentanyl Citrate 2,000 mcg in 100 mls @ 2.722 mls/hr 11/11/18 20:00 Fentanyl Drip Premix IV TITR SHIRA Protocol 1 MCG/KG/HR Sodium Chloride 1,000 mls @ 10 mls/hr 11/12/18 15:00 11/12/18 15:06 Nacl 0.9% 1000 Ml IV 10 mls/hr DIRECT SHIRA Administration Insulin Human Lispro 0 unit 11/12/18 14:00 11/13/18 06:25 Humalog SUB-Q 3 unit Q6HR SHIRA Administration Protocol Lactobacillus Acidophilus 1 each 11/12/18 10:00 11/13/18 10:07 Floranex PO 1 each QAM SHIRA Administration Lansoprazole 30 mg 11/12/18 10:00 11/13/18 10:07 Prevacid Solutab FEEDTUBE 30 mg QDAY SHIRA Administration Methylprednisolone Sodium Succinate 60 mg 11/12/18 14:00 11/13/18 06:19 Solu-Medrol IV 60 mg Q8HR SHIRA Administration Midazolam HCl 2 mg 11/11/18 16:03 11/11/18 23:27 Versed IV 2 mg Q10MIN PRN Administration Sedation Multi-Ingred Cream/Lotion/Oil/Oint 1 applic 11/11/18 16:03 Artificial Tears Ophth Oint OU Q4HR PRN Dry Eye(s) Multivitamins 5 ml 11/12/18 10:00 11/13/18 10:07 Centrum Liq PO 5 ml QDAY SHIRA Administration Potassium Chloride 20 meq 11/12/18 10:00 11/13/18 10:07 Potassium Chloride FEEDTUBE 20 meq QDAY SHIRA Administration Simple Syrup 15 ml 11/12/18 14:42 Simple Syrup FEEDTUBE PRN PRN Hypoglycemia Simple Syrup 30 ml 11/12/18 14:42 Simple Syrup FEEDTUBE PRN PRN Hypoglycemia Sodium Bicarbonate 325 mg 11/12/18 14:42 Sodium Bicarbonate FEEDTUBE PRN PRN For Clogged Feeding Tube Sodium Chloride 10 ml 11/11/18 22:00 11/13/18 10:07 Sodium Chloride Flush Syringe 10 Ml IV 10 ml BID SHIRA Administration Sodium Chloride 10 ml 11/11/18 15:42 Sodium Chloride Flush Syringe 10 Ml IV PRN PRN LINE FLUSH
[2018-11-13] MEDS: FREE WATER PO SCH ×3 (12:00→23:21)
[2018-11-13] MEDS: PHOS-NAK PO SCH ×2 (14:00→21:12)
--- NOTE | 2018-11-13 14:47 | Progress Note ---
Assessment and Plan Assessment and plan: Sepsis. F/U Blood cx. sec UTI/PNA. Cont. Iv abx. IVF hydration. Acute hypoxemic resp failure. Cont. per Pulm. Etiology sec RLL PNA. However, elevated d-dimer--consider PE but Doppler negative. CTA chest when hemodynamically stable. Check Echo. UTi. Cont IV abx. F/U cx. CTAP (11-11-18) bilat hydro (no obstructing stone), bladder mass,Cystitis Toxic metabolic encephalopathy ARF. Etiology likely secondary to BETHEL secondary to atn/sepsis RLL Pneumonia. Cont Abx. History Interval history: 58 YO Male Snf Resident with HTN, DM, COPD, CVA with LHP, Contracture, and Dysphagia S/P G tube placement, DM, COPD, presents to ED for evaluation. Pt is stuporous and unable to provide history. History taken from SNF staff. As per SNF staff, the patient was found to be confused and nonresponsive. Pt seen and found to have Sepsis secondary to UTI, Acute Renal Failure, Acute Hypoxemic Respiratory Failure. Pt admitted to ICU and initiated on sepsis protocol. Hospitalist Physical - Constitutional Vitals: Temp Pulse Resp BP Pulse Ox 97.3 F L 82 23 107/66 98 11/13/18 12:00 11/13/18 11:30 11/13/18 11:30 11/13/18 11:30 11/13/18 11:30 General appearance: Present: severe distress, cachectic, disheveled - EENT Eyes: Present: PERRL, EOM intact ENT: hearing intact, clear oral mucosa, dentition normal - Neck Neck: Present: supple, normal ROM - Respiratory Respiratory effort: normal Respiratory: bilateral: CTA - Cardiovascular Rhythm: regular Heart Sounds: Present: S1 & S2. Absent: gallop, rub - Extremities Extremities: no ischemia, No edema, Full ROM - Abdominal General gastrointestinal: soft, non-tender, non-distended, normal bowel sounds - Integumentary Integumentary: Present: clear, warm, dry - Neurologic Neurologic: CNII-XII intact, moves all extremities Results - Labs CBC & Chem 7: 11/13/18 05:20 11/13/18 05:20 Labs: Laboratory Last Values WBC 9.8 K/mm3 (4.5-11.0) 11/13/18 05:20 RBC 3.62 M/mm3 (3.65-5.03) L 11/13/18 05:20 Hgb 11.3 gm/dl (11.8-15.2) L 11/13/18 05:20 Hct 32.8 % (35.5-45.6) L 11/13/18 05:20 MCV 91 fl (84-94) 11/13/18 05:20 MCH 31 pg (28-32) 11/13/18 05:20 MCHC 34 % (32-34) 11/13/18 05:20 RDW 14.3 % (13.2-15.2) 11/13/18 05:20 Plt Count 200 K/mm3 (140-440) 11/13/18 05:20 Lymph % (Auto) 2.9 % (13.4-35.0) L 11/11/18 09:55 [place] % (Auto) 5.7 % (0.0-7.3) 11/12/18 06:30 Eos % (Auto) 0.0 % (0.0-4.3) 11/12/18 06:30 Baso % (Auto) 0.3 % (0.0-1.8) 11/11/18 09:55 Lymph # 0.3 K/mm3 (1.2-5.4) L 11/11/18 09:55 [place] # 0.8 K/mm3 (0.0-0.8) 11/12/18 06:30 Eos # 0.0 K/mm3 (0.0-0.4) 11/12/18 06:30 Baso # 0.0 K/mm3 (0.0-0.1) 11/12/18 06:30 Add Manual Diff Complete 11/13/18 05:20 Total Counted 100 11/13/18 05:20 Seg Neutrophils % Emulsion Coater 11/13/18 05:20 Seg Neuts % (Manual) 90.0 % (40.0-70.0) H 11/13/18 05:20 Band Neutrophils % 3.0 % 11/13/18 05:20 Lymphocytes % (Manual) 5.0 % (13.4-35.0) L 11/13/18 05:20 Reactive Lymphs % (Man) 0 % 11/13/18 05:20 Monocytes % (Manual) 2.0 % (0.0-7.3) 11/13/18 05:20 Eosinophils % (Manual) 0 % (0.0-4.3) 11/13/18 05:20 Basophils % (Manual) 0 % (0.0-1.8) 11/13/18 05:20 Metamyelocytes % 0 % 11/13/18 05:20 Myelocytes % 0 % 11/13/18 05:20 Promyelocytes % 0 % 11/13/18 05:20 Blast Cells % 0 % 11/13/18 05:20 Nucleated RBC % Not Reportable 11/13/18 05:20 Seg Neutrophils # 13.7 K/mm3 (1.8-7.7) H 11/12/18 06:30 Seg Neutrophils # Man 8.8 K/mm3 (1.8-7.7) H 11/13/18 05:20 Band Neutrophils # 0.3 K/mm3 11/13/18 05:20 Lymphocytes # (Manual) 0.5 K/mm3 (1.2-5.4) L 11/13/18 05:20 Abs React Lymphs (Man) 0.0 K/mm3 11/13/18 05:20 Monocytes # (Manual) 0.2 K/mm3 (0.0-0.8) 11/13/18 05:20 Eosinophils # (Manual) 0.0 K/mm3 (0.0-0.4) 11/13/18 05:20 Basophils # (Manual) 0.0 K/mm3 (0.0-0.1) 11/13/18 05:20 Metamyelocytes # 0.0 K/mm3 11/13/18 05:20 Myelocytes # 0.0 K/mm3 11/13/18 05:20 Promyelocytes # 0.0 K/mm3 11/13/18 05:20 Blast Cells # 0.0 K/mm3 11/13/18 05:20 WBC Morphology Not Reportable 11/13/18 05:20 Hypersegmented Neuts Not Reportable 11/13/18 05:20 Hyposegmented Neuts Not Reportable 11/13/18 05:20 Hypogranular Neuts Not Reportable 11/13/18 05:20 Smudge Cells Not Reportable 11/13/18 05:20 Toxic Granulation Not Reportable 11/13/18 05:20 Toxic Vacuolation Not Reportable 11/13/18 05:20 Dohle Bodies Not Reportable 11/13/18 05:20 Pelger-Huet Anomaly Not Reportable 11/13/18 05:20 Meghan Rods Not Reportable 11/13/18 05:20 Platelet Estimate Appears normal 11/13/18 05:20 Clumped Platelets Not Reportable 11/13/18 05:20 Plt Clumps, EDTA Not Reportable 11/13/18 05:20 Large Platelets Not Reportable 11/13/18 05:20 Giant Platelets Not Reportable 11/13/18 05:20 Platelet Satelliting Not Reportable 11/13/18 05:20 Plt Morphology Comment Not Reportable 11/13/18 05:20 RBC Morphology Not Reportable 11/13/18 05:20 Dimorphic RBCs Not Reportable 11/13/18 05:20 Polychromasia Not Reportable 11/13/18 05:20 Hypochromasia Not Reportable 11/13/18 05:20 Poikilocytosis Not Reportable 11/13/18 05:20 Anisocytosis Few 11/13/18 05:20 Microcytosis Not Reportable 11/13/18 05:20 Macrocytosis Not Reportable 11/13/18 05:20 Spherocytes Not Reportable 11/13/18 05:20 Pappenheimer Bodies Not Reportable 11/13/18 05:20 Sickle Cells Not Reportable 11/13/18 05:20 Target Cells Not Reportable 11/13/18 05:20 Tear Drop Cells Not Reportable 11/13/18 05:20 Ovalocytes Not Reportable 11/13/18 05:20 Helmet Cells Not Reportable 11/13/18 05:20 [place] Bodies Not Reportable 11/13/18 05:20 [place] Rings Not Reportable 11/13/18 05:20 [place] Cells Not Reportable 11/13/18 05:20 Bite Cells Not Reportable 11/13/18 05:20 Crenated Cell Not Reportable 11/13/18 05:20 Elliptocytes Not Reportable 11/13/18 05:20 Acanthocytes (Spur) Not Reportable 11/13/18 05:20 Rouleaux Not Reportable 11/13/18 05:20 Hemoglobin C Crystals Not Reportable 11/13/18 05:20 Schistocytes Not Reportable 11/13/18 05:20 Malaria parasites Not Reportable 11/13/18 05:20 [place] Bodies Not Reportable 11/13/18 05:20 Hem Pathologist Commnt No 11/13/18 05:20 D-Dimer 2061.41 ng/mlDDU (0-234) H 11/11/18 20:41 POC ABG pH 7.356 (7.35-7.45) 11/13/18 04:41 POC ABG pCO2 31.0 (35-45) L 11/13/18 04:41 POC ABG pO2 89 (80-105) 11/13/18 04:41 POC ABG HCO3 17.3 11/13/18 04:41 POC ABG Total CO2 18 11/13/18 04:41 POC ABG O2 Sat 97 11/13/18 04:41 POC ABG Base Excess -8 11/13/18 04:41 VBG pH 7.343 (7.320-7.420) 11/11/18 15:04 FiO2 30 % 11/13/18 04:41 Sodium 149 mmol/L (137-145) H 11/13/18 05:20 Potassium 3.7 mmol/L (3.6-5.0) 11/13/18 05:20 Chloride 120.8 mmol/L (98-107) H 11/13/18 05:20 Carbon Dioxide 18 mmol/L (22-30) L 11/13/18 05:20 Anion Gap 14 mmol/L 11/13/18 05:20 BUN 52 mg/dL (9-20) H 11/13/18 05:20 Creatinine 0.7 mg/dL (0.8-1.5) L 11/13/18 05:20 Estimated GFR > 60 ml/min 11/13/18 05:20 BUN/Creatinine Ratio 74 % 11/13/18 05:20 Glucose 247 mg/dL (75-100) H 11/13/18 05:20 POC Glucose 306 (70-105) H 11/13/18 11:58 Lactic Acid 1.10 mmol/L (0.7-2.0) 11/11/18 23:19 Calcium 7.8 mg/dL (8.4-10.2) L 11/13/18 05:20 Phosphorus 1.90 mg/dL (2.5-4.5) L 11/13/18 05:20 Magnesium 2.10 mg/dL (1.7-2.3) 11/13/18 05:20 Total Bilirubin 0.40 mg/dL (0.1-1.2) 11/12/18 06:30 AST 17 units/L (5-40) 11/12/18 06:30 ALT 11 units/L (7-56) 11/12/18 06:30 Alkaline Phosphatase 72 units/L (35-129) 11/12/18 06:30 C-Reactive Protein 13.70 mg/dL (0.00-1.30) H 11/11/18 20:41 Total Protein 5.2 g/dL (6.3-8.2) L 11/12/18 06:30 Albumin 2.0 g/dL (3.9-5) L 11/12/18 06:30 Albumin/Globulin Ratio 0.6 % 11/12/18 06:30 TSH 0.900 mlU/mL (0.270-4.200) 11/11/18 09:55 Urine Color [place] (Yellow) 11/11/18 10:22 Urine Turbidity Turbid (Clear) 11/11/18 10:22 Urine pH 8.0 (5.0-7.0) H 11/11/18 10:22 Ur Specific [place] 1.011 (1.003-1.030) 11/11/18 10:22 Urine Protein 100 mg/dl mg/dL (Negative) 11/11/18 10:22 Urine Glucose (UA) Neg mg/dL (Negative) 11/11/18 10:22 Urine Ketones Neg mg/dL (Negative) 11/11/18 10:22 Urine Blood Sm (Negative) 11/11/18 10:22 Urine Nitrite Neg (Negative) 11/11/18 10:22 Urine Bilirubin Neg (Negative) 11/11/18 10:22 Urine Urobilinogen < 2.0 mg/dL (<2.0) 11/11/18 10:22 Ur Leukocyte Esterase Lg (Negative) 11/11/18 10:22 Urine WBC (Auto) > 182.0 /HPF (0.0-6.0) H 11/11/18 10:22 Urine RBC (Auto) 27.0 /HPF (0.0-6.0) 11/11/18 10:22 Urine Bacteria (Auto) 3+ /HPF (Negative) 11/11/18 10:22 Urine WBC Clumps 3+ /HPF 11/11/18 10:22 Urine Mucus Few /HPF 11/11/18 10:22 Plasma/Serum Alcohol < 0.01 % (0-0.07) 11/11/18 09:55 Nutrition/Malnutrition Assess - Dietary Evaluation Nutrition/Malnutrition Findings: Nutrition Notes Start: 11/12/18 09:27 Freq: Status: Active Protocol: Document 11/12/18 09:27 CP (Rec: 11/12/18 09:45 CP [id number]) Co-Sign 11/12/18 09:27 LP Nutrition Notes Need for Assessment generated from: MD Order Initial or Follow up Assessment Current Diagnosis Acute Kidney Injury COPD Sepsis Respiratory Failure Other Pertinent Diagnosis Dysphagia, DVT prophylaxis, AMS, UTI, bilateral hydronephrosis Current Diet NPO Labs/Tests BUN: 93 Glu: 182 PRO: 5.2 Pertinent Medications Reviewed Height 5 ft 7 in Weight 54.43 kg [place] Body Weight (kg) 67.27 BMI 18.8 Weight Status Appropriate Subjective/Other Information RD consulted for TF. Percent of energy/protein needs met: 0%/0% Burn Absent Trauma Absent #1 Nutrition Diagnosis Inadequate oral intake Etiology AMS, dysphagia, mechanical vent As Evidenced by Signs and Symptoms NPO status Is patient on ventilator? Yes Is Patient Ambulatory and/or Out of Bed No REE-([facility]-confined to bed) [phone] Calculation Used for Recommendations [facility] Additional Notes PRO: 65-109g (1.2-2 g/kg ABW) Fluid: 1 mL/kcal Nutrition Intervention Change Diet Order: TF Nutrition Support: Glucerna 1.2 at 55mL/hr Kcal 1,584 Protein (gm) 79 Fluid (mL) 1,063 Fiber (gm) 21 Goal #1 TF to meet at least 80% of PRO and energy needs. Goal #2 TF tolerance Follow-Up By: 11/15/18 Additional Comments F/U: TF start and TF tolerance
--- NOTE | 2018-11-13 17:20 | Progress Note ---
Assessment and Plan Acute hypoxemic respiratory failure, on mechanical ventilatory support. Acute on chronic encephalopathy. Severe sepsis with shock, presumably due to UTI Urinary tract infection. Acute kidney injury. Likely bladder outlet obstruction. Bilateral hydronephrosis. Nephrolithiasis. History of diabetes. Hypertension. Chronic obstructive lung disease. Prior cerebrovascular accident with left hemiparesis. Oropharyngeal dysphagia. Metabolic acidosis. Hyponatremia, moderate. Adult failure to thrive. - continue IV 0.45 NS at 75 mls/hr X 2 more liters - continue to wean levophed for MAP > 65 mmHg - continue bronchodilators with pulmonary hygiene per RT - reduce set rate to 20/min - daily SBT assessment - daily SAT's - VAP bundle addressed - nephrology evaluation - continue slade catheter and follow urologist recommendations - begin enteral nutrition as tolerated - target sedation for RASS 0 to -1 - PT/OT/ROM exercises as tolerated - mobility protocol for pressure ulcer prophylaxis - continue GI & VTE prophylaxis - continue other care per attending / other consultants ...... re-evaluate in am & prn The high probability of a clinically significant, sudden or life threatening deterioration of the [cardiac, respiratory and neurologic] system(s) required my full and direct attention, intervention and personal management. The aggregate critical care time was [35] minutes. This time is in addition to time spent performing reported procedures but includes the following: [x] Data Review and interpretation [x] Patient assessment and monitoring of vital signs [x] Documentation [x] Medication orders and management Subjective Date of service: 11/13/18 Principal diagnosis: Acute Hypoxemic Resp Failure; Severe sepsis with shock; UT I; BETHEL Interval history: Patient is seen today for: Acute hypoxemic respiratory failure on mechanical ventilatory support; Acute on chronic encephalopathy; Severe sepsis with shock, presumably due to UTI; Urinary tract infection; Acute kidney injury. Seen and examined at bedside; 24hour events reviewed; nursing and respiratory care staff consulted; no adverse overnight events reported to me; resting peacefully in bed; blood pressures still labile and remains on levophed; No N/V/F/C Objective Vital Signs - 12hr 11/13/18 11/13/18 11/13/18 05:30 05:45 06:01 Temperature Pulse Rate 91 H 92 H 94 H Pulse Rate [ Anterior Bilateral Throughout] Pulse Rate [ From Monitor] Respiratory 22 21 23 Rate Respiratory Rate [Anterior Bilateral Throughout] Blood Pressure 121/72 121/72 121/72 O2 Sat by Pulse 98 96 97 Oximetry 11/13/18 11/13/18 11/13/18 06:15 06:30 06:45 Temperature Pulse Rate 95 H 90 88 Pulse Rate [ Anterior Bilateral Throughout] Pulse Rate [ From Monitor] Respiratory 22 22 22 Rate Respiratory Rate [Anterior Bilateral Throughout] Blood Pressure 119/71 116/69 119/69 O2 Sat by Pulse 97 97 97 Oximetry 11/13/18 11/13/18 11/13/18 07:00 07:15 07:30 Temperature Pulse Rate 84 101 H 92 H Pulse Rate [ Anterior Bilateral Throughout] Pulse Rate [ From Monitor] Respiratory 21 24 23 Rate Respiratory Rate [Anterior Bilateral Throughout] Blood Pressure 117/73 123/74 119/75 O2 Sat by Pulse 98 98 98 Oximetry 11/13/18 11/13/18 11/13/18 07:45 08:00 08:15 Temperature 97.1 F L Pulse Rate 86 80 81 Pulse Rate [ Anterior Bilateral Throughout] Pulse Rate [ 86 From Monitor] Respiratory 20 20 20 Rate Respiratory Rate [Anterior Bilateral Throughout] Blood Pressure 117/73 116/71 106/74 O2 Sat by Pulse 98 97 98 Oximetry 11/13/18 11/13/18 11/13/18 08:24 08:29 08:30 Temperature Pulse Rate 81 85 Pulse Rate [ 85 Anterior Bilateral Throughout] Pulse Rate [ From Monitor] Respiratory 20 24 Rate Respiratory 22 Rate [Anterior Bilateral Throughout] Blood Pressure 115/69 117/68 O2 Sat by Pulse 98 97 Oximetry 11/13/18 11/13/18 11/13/18 08:39 08:45 09:00 Temperature Pulse Rate 88 88 Pulse Rate [ 87 Anterior Bilateral Throughout] Pulse Rate [ From Monitor] Respiratory 21 21 Rate Respiratory 21 Rate [Anterior Bilateral Throughout] Blood Pressure 115/69 117/70 O2 Sat by Pulse 96 97 Oximetry 11/13/18 11/13/18 11/13/18 09:15 09:30 09:45 Temperature Pulse Rate 86 85 82 Pulse Rate [ Anterior Bilateral Throughout] Pulse Rate [ From Monitor] Respiratory 22 20 23 Rate Respiratory Rate [Anterior Bilateral Throughout] Blood Pressure 115/69 122/71 119/71 O2 Sat by Pulse 97 97 98 Oximetry 11/13/18 11/13/18 11/13/18 10:00 10:15 10:30 Temperature Pulse Rate 84 86 83 Pulse Rate [ Anterior Bilateral Throughout] Pulse Rate [ From Monitor] Respiratory 21 22 22 Rate Respiratory Rate [Anterior Bilateral Throughout] Blood Pressure 119/71 116/69 109/69 O2 Sat by Pulse 98 98 98 Oximetry 11/13/18 11/13/18 11/13/18 10:45 11:00 11:15 Temperature Pulse Rate 75 88 77 Pulse Rate [ Anterior Bilateral Throughout] Pulse Rate [ From Monitor] Respiratory 22 17 21 Rate Respiratory Rate [Anterior Bilateral Throughout] Blood Pressure 111/66 95/59 104/59 O2 Sat by Pulse 99 99 97 Oximetry 11/13/18 11/13/18 11/13/18 11:29 11:30 12:00 Temperature 97.3 F L Pulse Rate 82 82 Pulse Rate [ Anterior Bilateral Throughout] Pulse Rate [ From Monitor] Respiratory 22 23 Rate Respiratory Rate [Anterior Bilateral Throughout] Blood Pressure 107/66 107/66 O2 Sat by Pulse 98 98 Oximetry 11/13/18 11/13/18 11/13/18 16:35 16:45 16:55 Temperature Pulse Rate 88 Pulse Rate [ 87 97 H Anterior Bilateral Throughout] Pulse Rate [ From Monitor] Respiratory 22 Rate Respiratory 23 25 H Rate [Anterior Bilateral Throughout] Blood Pressure 92/58 O2 Sat by Pulse 99 Oximetry Constitutional: appears uncomfortable, other (elderly, chronically ill looking CM, normocephalic and atraumatic with increased respiratory effort at rest) Eyes: non-icteric ENT: oropharynx moist, other (ETT 24 cm AMA) Neck: supple, no lymphadenopathy, no JVD, other (no thyromegaly) Effort: mildly labored Ascultation: Bilateral: diminished breath sounds, rhonchi Percussion: Bilateral: not dull Cardiovascular: regular rate and rhythm Gastrointestinal: normoactive bowel sounds, soft, non-tender, non-distended Integumentary: rash, other (poor turgor; decubitus ulcer) Extremities: no edema, pink and warm, pulses normal, other (? early digital gangrene) Neurologic: non-focal exam, unable to assess Psychiatric: other (unable to assess) CBC and BMP: 11/14/18 05:30 11/14/18 05:30 ABG, PT/INR, D-dimer: ABG POC ABG pH 7.356 (7.35-7.45) 11/13/18 04:41 POC ABG pCO2 31.0 (35-45) L 11/13/18 04:41 POC ABG pO2 89 (80-105) 11/13/18 04:41 POC ABG HCO3 17.3 11/13/18 04:41 POC ABG Total CO2 18 11/13/18 04:41 POC ABG O2 Sat 97 11/13/18 04:41 PT/INR, D-dimer D-Dimer 2061.41 ng/mlDDU (0-234) H 11/11/18 20:41 Abnormal lab findings: Abnormal Labs 11/11/18 11/11/18 11/11/18 09:55 09:55 10:22 WBC RBC Hgb Hct MCHC 35 H Lymph % (Auto) 2.9 L [place] % (Auto) 9.8 H Lymph # 0.3 L [place] # 1.0 H Seg Neutrophils % 87.0 H Seg Neuts % (Manual) Lymphocytes % (Manual) Seg Neutrophils # 8.7 H Seg Neutrophils # Man Lymphocytes # (Manual) D-Dimer POC ABG pH POC ABG pCO2 POC ABG pO2 Sodium 129 L Chloride 95.5 L Carbon Dioxide 18 L BUN 155 H Creatinine 3.1 H Glucose 196 H POC Glucose Calcium Phosphorus C-Reactive Protein Total Protein Albumin 2.4 L Urine pH 8.0 H Urine WBC (Auto) > 182.0 H 11/11/18 11/11/18 11/11/18 12:04 18:36 20:41 WBC RBC Hgb Hct MCHC Lymph % (Auto) [place] % (Auto) Lymph # [place] # Seg Neutrophils % Seg Neuts % (Manual) Lymphocytes % (Manual) Seg Neutrophils # Seg Neutrophils # Man Lymphocytes # (Manual) D-Dimer POC ABG pH 7.335 L 7.256 L POC ABG pCO2 34.8 L POC ABG pO2 55 L 74 L Sodium Chloride Carbon Dioxide BUN Creatinine Glucose POC Glucose Calcium Phosphorus C-Reactive Protein 13.70 H Total Protein Albumin Urine pH Urine WBC (Auto) 11/11/18 11/11/18 11/12/18 20:41 21:37 04:20 WBC RBC Hgb Hct MCHC Lymph % (Auto) [place] % (Auto) Lymph # [place] # Seg Neutrophils % Seg Neuts % (Manual) Lymphocytes % (Manual) Seg Neutrophils # Seg Neutrophils # Man Lymphocytes # (Manual) D-Dimer 2061.41 H POC ABG pH 7.328 L POC ABG pCO2 32.9 L 27.6 L POC ABG pO2 170 H Sodium Chloride Carbon Dioxide BUN Creatinine Glucose POC Glucose Calcium Phosphorus C-Reactive Protein Total Protein Albumin Urine pH Urine WBC (Auto) 11/12/18 11/12/18 11/12/18 05:14 06:30 06:30 WBC 15.3 H RBC Hgb Hct 34.9 L MCHC Lymph % (Auto) [place] % (Auto) Lymph # [place] # Seg Neutrophils % Seg Neuts % (Manual) 94.0 H Lymphocytes % (Manual) 1.0 L Seg Neutrophils # 13.7 H Seg Neutrophils # Man 14.4 H Lymphocytes # (Manual) 0.2 L D-Dimer POC ABG pH POC ABG pCO2 POC ABG pO2 Sodium Chloride 113.2 H Carbon Dioxide 19 L BUN 93 H Creatinine Glucose 182 H POC Glucose 176 H Calcium 7.9 L Phosphorus C-Reactive Protein Total Protein 5.2 L Albumin 2.0 L Urine pH Urine WBC (Auto) 11/12/18 11/12/18 11/13/18 12:23 18:20 00:17 WBC RBC Hgb Hct MCHC Lymph % (Auto) [place] % (Auto) Lymph # [place] # Seg Neutrophils % Seg Neuts % (Manual) Lymphocytes % (Manual) Seg Neutrophils # Seg Neutrophils # Man Lymphocytes # (Manual) D-Dimer POC ABG pH POC ABG pCO2 POC ABG pO2 Sodium Chloride Carbon Dioxide BUN Creatinine Glucose POC Glucose 201 H 218 H 222 H Calcium Phosphorus C-Reactive Protein Total Protein Albumin Urine pH Urine WBC (Auto) 11/13/18 11/13/18 11/13/18 04:41 04:53 05:20 WBC RBC 3.62 L Hgb 11.3 L Hct 32.8 L MCHC Lymph % (Auto) [place] % (Auto) Lymph # [place] # Seg Neutrophils % Seg Neuts % (Manual) 90.0 H Lymphocytes % (Manual) 5.0 L Seg Neutrophils # Seg Neutrophils # Man 8.8 H Lymphocytes # (Manual) 0.5 L D-Dimer POC ABG pH POC ABG pCO2 31.0 L POC ABG pO2 Sodium Chloride Carbon Dioxide BUN Creatinine Glucose POC Glucose 238 H Calcium Phosphorus C-Reactive Protein Total Protein Albumin Urine pH Urine WBC (Auto) 11/13/18 11/13/18 05:20 11:58 WBC RBC Hgb Hct MCHC Lymph % (Auto) [place] % (Auto) Lymph # [place] # Seg Neutrophils % Seg Neuts % (Manual) Lymphocytes % (Manual) Seg Neutrophils # Seg Neutrophils # Man Lymphocytes # (Manual) D-Dimer POC ABG pH POC ABG pCO2 POC ABG pO2 Sodium 149 H Chloride 120.8 H Carbon Dioxide 18 L BUN 52 H Creatinine 0.7 L Glucose 247 H POC Glucose 306 H Calcium 7.8 L Phosphorus 1.90 L C-Reactive Protein Total Protein Albumin Urine pH Urine WBC (Auto) Allied health notes reviewed: nursing
[2018-11-13] MEDS ORDERED: NACL 0.45% 1,000 ML IV SCH (18:00)
[2018-11-13] MEDS: NEURONTIN PO SCH (21:10)
[2018-11-13] MEDS: NACL 0.45% 1000 ML 1,000 ML IV SCH (23:22)
[2018-11-14 06:11] LABS: Hematocrit 29.7 % (35.5-45.6); Mean Corpuscular HGB Conc 34 % (32-34); Mean Corpuscular Volume 92 fl (84-94); Platelet Count 137 K/mm3 (140-440); Red Blood Count 3.22 M/mm3 (3.65-5.03); Red Cell Distribution Width 14.3 % (13.2-15.2)
[2018-11-14] MEDS: HumaLOG SUB-Q SCH ×3 (06:12→18:16)
[2018-11-14] MEDS: FREE WATER PO SCH ×3 (06:13→18:16)
[2018-11-14] MEDS: SOLU-Medrol IV SCH ×3 (06:13→21:46)
[2018-11-14] MEDS: PHOS-NAK PO SCH ×3 (06:13→21:46)
[2018-11-14 06:33] LABS: BUN/Creatinine Ratio 67; Blood Urea Nitrogen 40 mg/dL (9-20); Calcium 7.9 mg/dL (8.4-10.2); Hemolysis Index 3
[2018-11-14] MEDS: DUONEB *Not for PRN Use IH SCH ×3 (08:51→19:31)
--- NOTE | 2018-11-14 10:36 | XRay Report ---
FINAL REPORT EXAM: XR CHEST 1V AP HISTORY: follow up respiratory failure TECHNIQUE: Frontal chest x-ray. PRIORS: Chest x-ray November 13, 2018. FINDINGS: Hypoaerated lungs accentuate the pulmonary markings and cardiac silhouette. Cardiac silhouette is within normal limits. Prominent bilateral pulmonary markings with airspace opacities. No pneumothorax. No consolidation. No significant effusion. There are no suspicious osseous lesions. Endotracheal tube is approximately 5.7 cm above the rachel. Satisfactory. Right central line tip is present within the SVC. IMPRESSION: Prominent bilateral pulmonary markings with airspace opacities may represent pulmonary vascular conge stion, acute pneumonitis, or pneumonia. Overall similar to prior.
[2018-11-14] MEDS: PREVACID SOLUTAB FEEDTUBE SCH (10:39)
[2018-11-14] MEDS: POTASSIUM CHLORIDE FEEDTUBE SCH (10:39)
[2018-11-14] MEDS: SODIUM CHLORIDE FLUSH SYRINGE 10 ML IV SCH ×2 (10:39→21:46)
[2018-11-14] MEDS: VITAMIN C FEEDTUBE SCH (10:39)
[2018-11-14] MEDS: Centrum Liq PO SCH (10:39)
[2018-11-14] MEDS: FLORANEX PO SCH (10:39)
[2018-11-14] MEDS: HEPARIN SUB-Q SCH ×2 (10:40→21:45)
[2018-11-14 10:50] LABS: Anisocytosis Few; Band Neutrophils # (Manual) 0.1 K/mm3; Basophils % (Manual) 0 % (0.0-1.8); Eosinophils % (Manual) 0 % (0.0-4.3); Hypochromasia 1+; Platelet Estimate Consistent w Auto; Total Cells Counted 100
--- NOTE | 2018-11-14 11:24 | Consultation ---
History of Present Illness - Reason for Consult Consult date: 11/14/18 sepsis Requesting physician: LETY VICK - History of Present Illness 58 y/o male with history of HTN, DM, COPD, CVA with aphasia and right-sided hemiparesis, contracture, dysphagia s/p G tube placement; [facility] due to AMS/confusion/unresponsiveness. Patient is currently intubated, unable to provide a history. History taken from review of records. EMS arrival found patient to be in distress. Reviewed of micro records noted urine culture in January 2015 with MDR Pseudomonas sensitive to cefepime and zosyn, resistant to imipenem and quinolones. In the ED, temp 100.6, HR 125, R 25, BP 101/62, WBC 10K. Hg 13.9. Plat 160. D- dimer 1261. Sodium 129. Creat 3.1. CRP 13. UA with wbc 182, LE large. Blood cultures 11/11/2018 no growth. Tracheal asp 11/11/2018 VISA (VANCOMYCIN INTERMEDIATE STAPH AUREUS). CXR showed RML atelectasis, repeat showed bilateral pulmonary vascular congestion. CT scan of the abdomen diffusely irregular wall thickening with bilateral hydronephrosis and bilateral nonobstructive renal stones. There was also masslike area in the left superior bladder wall, also noted moderate bilateral hydroureteronephrosis without obstructing ureteral calculus and a right lower lobe consolidation concerning for pneumonia. Right middle lobe opacities also concerning for pneumonia versus aspiration. Review of Systems: unable to obtain Past History Past Medical History: COPD, diabetes, hypertension, stroke Past Surgical History: Other (G tube) Social history: single. denies: smoking, alcohol abuse, prescription drug abuse, IV drug use Family history: diabetes, hypertension Medications and Allergies Allergies Allergy/AdvReac Type Severity Reaction Status Date / Time No Known Allergies Allergy Verified 02/27/15 00:48 Home Medications Medication Instructions Recorded Confirmed Last Taken Type AtorvaSTATin [Lipitor] 40 mg FEEDTUBE QHS 06/21/16 11/11/18 06/20/16 History Ascorbic Acid [Vitamin C] 500 mg FEEDTUBE QDAY 07/14/18 11/11/18 Unknown History Aspirin [Adult Aspirin Regimen] 81 mg FEEDTUBE DAILY 07/14/18 11/11/18 Unknown History Ipratropium/Albuterol Sulfate 1 ampul IH Q6HR 07/14/18 11/11/18 Unknown History [DUONEB *Not for PRN Use*] Multivitamin [Multiple Vitamins] 1 each FEEDTUBE DAILY 07/14/18 11/11/18 Unknown History Protein Supplement [Promod] 30 ml FEEDTUBE Q8H 07/14/18 11/11/18 Unknown History Acetaminophen [Tylenol] 650 mg FEEDTUBE Q4HR PRN 11/11/18 11/11/18 Unknown History Gabapentin [Neurontin] 300 mg FEEDTUBE BID 11/11/18 11/11/18 Unknown History L. Acidophilus/L.bulgaricus 1 each FEEDTUBE QAM 11/11/18 11/11/18 Unknown History [Lactobacillus Tablet] Omeprazole 20 mg FEEDTUBE QAM 11/11/18 11/11/18 Unknown History Potassium Chloride 20 meq FEEDTUBE QDAY 11/11/18 11/11/18 Unknown History guaiFENesin DM [Robitussin Dm] 10 ml FEEDTUBE Q6HR PRN 11/11/18 11/11/18 Unknown History levoFLOXacin [Levaquin TAB] 500 mg FEEDTUBE QDAY 11/11/18 11/11/18 Unknown History Active Meds: Active Medications Acetaminophen (Tylenol) 650 mg FEEDTUBE Q4H PRN PRN Reason: Pain, Mild (1-3) Albuterol (Proventil) 2.5 mg IH Q3HRT PRN PRN Reason: Shortness Of Breath Albuterol/Ipratropium (Duoneb *Not For Prn Use*) 1 ampul IH Q8HRT [facility] Last Admin: 11/14/18 08:51 Dose: 1 ampul Documented by: Lipase/Protease/Amylase (Katie Lilly 10,500 Unit) 1 each FEEDTUBE PRN PRN PRN Reason: For Clogged Feeding Tube Ascorbic Acid (Vitamin C) 500 mg FEEDTUBE QDAY [facility] Last Admin: 11/14/18 10:39 Dose: 500 mg Documented by: Atorvastatin Calcium (Lipitor) 40 mg FEEDTUBE QHS [facility] Last Admin: 11/13/18 21:12 Dose: 40 mg Documented by: Gabapentin (Neurontin) 300 mg PO QHS [facility] [place] Last Admin: 11/13/18 21:10 Dose: 300 mg Documented by: Guaifenesin (Guaifenesin Dm Syrup) 10 ml FEEDTUBE Q6HR PRN PRN Reason: Cough Heparin Sodium (Porcine) (Heparin) 5,000 unit SUB-Q Q12HR [facility] Last Admin: 11/14/18 10:40 Dose: 5,000 unit Documented by: Hydrophilic Ointment (Vaseline Lip Therapy) 1 applic TP Q2HR PRN PRN Reason: Dry Lips Cefepime HCl (Maxipime/Ns 2 Gm/100 Ml) 2 gm in 100 mls @ 200 mls/hr IV Q12HR SHIRA; Protocol Last Admin: 11/13/18 21:11 Dose: 200 mls/hr Documented by: Midazolam HCl 100 mg/ Sodium (Chloride) 100 mls @ 2 mls/hr IV TITR SHIRA; Protocol Norepinephrine (Levophed Drip 4 Mg/Ns 250 Ml) 4 mg in 250 mls @ 7.5 mls/hr IV TITR SHIRA; Protocol Last Titration: 11/14/18 05:30 Dose: 0 mcg/min, 0 mls/hr Documented by: Sodium Chloride (Nacl 0.9% 1000 Ml) 1,000 mls @ 100 mls/hr IV DIRECT [facility]IRA Stop: 11/15/18 03:59 Last Admin: 11/13/18 10:15 Dose: 100 mls/hr Documented by: Fentanyl Citrate (Fentanyl Drip Premix) 2,000 mcg in 100 mls @ 2.722 mls/hr IV TITR SHIRA; Protocol Sodium Chloride (Nacl 0.9% 1000 Ml) 1,000 mls @ 10 mls/hr IV DIRECT SHIRA Last Admin: 11/12/18 15:06 Dose: 10 mls/hr Documented by: Sodium Chloride (Nacl 0.45% 1000 Ml) 1,000 mls @ 75 mls/hr IV DIRECT SHIRA Stop: 11/15/18 11:19 Last Admin: 11/13/18 23:22 Dose: 75 mls/hr Documented by: Insulin Human Lispro (Humalog) 0 unit SUB-Q Q6HR SHIRA; Protocol Last Admin: 11/14/18 06:12 Dose: 3 unit Documented by: Lactobacillus Acidophilus (Floranex) 1 each PO QAM [facility] Last Admin: 11/14/18 10:39 Dose: 1 each Documented by: Lansoprazole (Prevacid Solutab) 30 mg FEEDTUBE QDAY [facility] Last Admin: 11/14/18 10:39 Dose: 30 mg Documented by: Methylprednisolone Sodium Succinate (Solu-Medrol) 60 mg IV Q8HR [facility] Last Admin: 11/14/18 06:13 Dose: 60 mg Documented by: Midazolam HCl (Versed) 2 mg IV Q10MIN PRN PRN Reason: Sedation Last Admin: 11/11/18 23:27 Dose: 2 mg Documented by: Multi-Ingred Cream/Lotion/Oil/Oint (Artificial Tears Ophth Oint) 1 applic OU Q 4HR PRN PRN Reason: Dry Eye(s) Multivitamins (Centrum Liq) 5 ml PO QDAY [facility] [place] Last Admin: 11/14/18 10:39 Dose: 5 ml Documented by: Potassium Chloride (Potassium Chloride) 20 meq FEEDTUBE QDAY [facility] [place] Last Admin: 11/14/18 10:39 Dose: 20 meq Documented by: Potassium Phos/Sodium Phos (Phos-Nak) 1 each PO Q8HR [facility] Stop: 11/15/18 06:01 Last Admin: 11/14/18 06:13 Dose: 1 each Documented by: Simple Syrup (Simple Syrup) 15 ml FEEDTUBE PRN PRN PRN Reason: Hypoglycemia Simple Syrup (Simple Syrup) 30 ml FEEDTUBE PRN PRN PRN Reason: Hypoglycemia Sodium Bicarbonate (Sodium Bicarbonate) 325 mg FEEDTUBE PRN PRN PRN Reason: For Clogged Feeding Tube Sodium Chloride (Sodium Chloride Flush Syringe 10 Ml) 10 ml IV BID [facility] Last Admin: 11/14/18 10:39 Dose: 10 ml Documented by: Sodium Chloride (Sodium Chloride Flush Syringe 10 Ml) 10 ml IV PRN PRN PRN Reason: LINE FLUSH Physical Examination - Physical Exam Narrative exam: General appearance: somnolent in NAD lethargic intubated on the vent on CPAP Eyes: anicteric sclerae, moist conjunctivae; no lid-lag; PERRLA HENT: Atraumatic; oropharynx +ETT Neck: Trachea midline; supple, no thyromegaly or lymphadenopathy Lungs: dina rhonchi CV: RRR, no murmurs Abdomen: Soft, non-tender; +PEG Extremities: + left arm edema Skin: Normal temperature, turgor and texture; no rash, ulcers or subcutaneous nodules Psych: somnolent no follows commands Neuro: somnolent no agitated - Constitutional Vitals: Vital Signs Temp Pulse Resp BP Pulse Ox 97.7 F 89 19 105/58 99 11/14/18 08:00 11/14/18 09:15 11/14/18 09:15 11/14/18 09:15 11/14/18 09:15 Temperature -Last 24 Hours Temperature 97.7 F Temperature 99.1 F Temperature 100.0 F Temperature 99.4 F Temperature 97.3 F Temperature 97.3 F Results - Labs CBC & Chem 7: 11/14/18 05:30 11/14/18 05:30 Labs: Abnormal lab results 11/13/18 11/13/18 11/13/18 Range/Units 11:58 17:47 23:05 RBC (3.65-5.03) M/mm3 Hgb (11.8-15.2) gm/dl Hct (35.5-45.6) % Plt Count (140-440) K/mm3 Seg Neuts % (Manual) (40.0-70.0) % Lymphocytes % (Manual) (13.4-35.0) % Lymphocytes # (Manual) (1.2-5.4) K/mm3 POC ABG pH (7.35-7.45) Sodium (137-145) mmol/L Chloride (98-107) mmol/L BUN (9-20) mg/dL Creatinine (0.8-1.5) mg/dL Glucose (75-100) mg/dL POC Glucose 306 H 217 H 207 H (70-105) Calcium (8.4-10.2) mg/dL 11/14/18 11/14/18 11/14/18 Range/Units 04:24 05:30 05:30 RBC 3.22 L (3.65-5.03) M/mm3 Hgb 10.0 L (11.8-15.2) gm/dl Hct 29.7 L (35.5-45.6) % Plt Count 137 L (140-440) K/mm3 Seg Neuts % (Manual) 89.0 H (40.0-70.0) % Lymphocytes % (Manual) 3.0 L (13.4-35.0) % Lymphocytes # (Manual) 0.2 L (1.2-5.4) K/mm3 POC ABG pH 7.294 L (7.35-7.45) Sodium 150 H (137-145) mmol/L Chloride 121.3 H (98-107) mmol/L BUN 40 H (9-20) mg/dL Creatinine 0.6 L (0.8-1.5) mg/dL Glucose 241 H (75-100) mg/dL POC Glucose (70-105) Calcium 7.9 L (8.4-10.2) mg/dL 11/14/18 Range/Units 05:32 RBC (3.65-5.03) M/mm3 Hgb (11.8-15.2) gm/dl Hct (35.5-45.6) % Plt Count (140-440) K/mm3 Seg Neuts % (Manual) (40.0-70.0) % Lymphocytes % (Manual) (13.4-35.0) % Lymphocytes # (Manual) (1.2-5.4) K/mm3 POC ABG pH (7.35-7.45) Sodium (137-145) mmol/L Chloride (98-107) mmol/L BUN (9-20) mg/dL Creatinine (0.8-1.5) mg/dL Glucose (75-100) mg/dL POC Glucose 235 H (70-105) Calcium (8.4-10.2) mg/dL Assessment and Plan Cultures: Blood culture 11/11/2018 no growth. Urine culture 11/11/2018 no growth. Tracheal asp 11/11/2018 VISA (VANCOMYCIN INTERMEDIATE STAPH AUREUS). Assessment: 58 y/o male with history of HTN, DM, COPD, CVA with aphasia and right-sided hemiparesis, contracture, dysphagia s/p G tube placement; [facility] AMS/confusion/unresponsiveness: 1) Severe Sepsis with septic shock: Present on admission, manifested by fever, tachycardia, hypotension. Etiology most likely multifactorial - complicated UTI +/- pneumonia. CRP 13. Blood culture neg. 2) Complicated UTI: patient with hsitory of recurrrent UTI. Reviewed of micro records noted urine culture in January 2015 with MDR Pseudomonas sensitive to cefepime and zosyn, resistant to imipenem and quinolones. UA with wbc 182, LE large. CT scan of the abdomen diffusely irregular wall thickening with bilateral hydronephrosis and bilateral nonobstructive renal stones. There was also masslike area in the left superior bladder wall, also noted moderate bilateral hydroureteronephrosis without obstructing ureteral calculus. 3) Pneumonia/HAP: CXR showed RML atelectasis, repeat CXR showed bilateral pulmonary vascular congestion. CT abd showed right lower lobe consolidation concerning for pneumonia. Right middle lobe opacities also concerning for pneumonia versus aspiration. Tracheal asp 11/11/2018 VISA (VANCOMYCIN INTERMEDIATE STAPH AUREUS). Recommendations: - recommended conservative management - Strict contact isolation due to VISA and history of MDR Pseudomonas - stop vancomycin - start zyvox 600 mg IV q12h to cover VISA pneumonia - continue cefepime for now - at some point he will require cystocopy to eval bladder mass - aspiration precautions Overall prognosis is poor, please discuss with family palliative care Will follow. Brianna Yousif MD Infectious Diseases [employer] [facility] ([facility] [phone] O [phone]
[2018-11-14] MEDS: MAXIPIME/NS 2 GM/100 ML 2 GM/100 ML BAG IV SCH ×2 (12:40→21:44)
[2018-11-14] MEDS: NACL 0.45% 1000 ML 1,000 ML IV SCH (12:46)
[2018-11-14] MEDS: SODIUM CHLORIDE FLUSH SYRINGE 10 ML IV PRN (13:49)
[2018-11-14] MEDS: ZYVOX 600MG/300ML 600 MG/300 ML BAG IV SCH (14:10)
--- NOTE | 2018-11-14 15:11 | Progress Note ---
Assessment and Plan - Patient Problems (1) Acute kidney injury Current Visit: No Status: Acute Plan to address problem: Acute kidney injury probably prerenal azotemia and obstructive uropathy improving with relief of obstruction and volume repletion. Kidney function is improved. Wean vasopressors as tolerated. Follow-up electrolytes and renal function (2) Hypernatremia Current Visit: Yes Status: Acute Plan to address problem: Give free water via the feeding tube and seems hemodynamic status is improving, change IV fluid isotonic saline to hypotonic fluids. (3) Hypophosphatemia Current Visit: Yes Status: Acute Plan to address problem: follow-up level (4) Altered mental status Current Visit: Yes Status: Acute Plan to address problem: Toxic/metabolic encephalopathy. (5) History of CVA with residual deficit Current Visit: Yes Status: Acute (6) Hydronephrosis Current Visit: Yes Status: Acute Plan to address problem: Suspect secondary to bladder outlet obstruction. Masslike area in the bladder wall concerning. Urologist on board. (7) Sepsis Current Visit: Yes Status: Acute Qualifiers: Sepsis type: sepsis due to unspecified organism Qualified Code(s): A41.9 - Sepsis, unspecified organism Plan to address problem: Severe sepsis with hypotension on vasopressors. Sputum growing MRSA. Continue volume repletion, antibiotics and maintained mean arterial pressure > 65 mmHg. wean vasopressors as tolerated (8) UTI (urinary tract infection) Current Visit: Yes Status: Acute Qualifiers: Encounter type: initial encounter Plan to address problem: Continue antibiotics. Follow up cultures (9) Acute respiratory failure Current Visit: Yes Status: Acute Plan to address problem: Continue ventilator management per pulmonary Subjective Date of service: 11/14/18 Principal diagnosis: Acute Hypoxemic Resp Failure; Severe sepsis with shock; UTI; BETHEL Interval history: Patient seen lying in bed. Intubated on ventilator. Not following commands Objective - Exam Narrative Exam: Middle-aged male lying in bed intubated on the ventilator Asthenic biuld HEENT: NCAT, ETT intact Neck: Supple, no venous distention CVS: S1S2 RRR with no murmur, rub or gallop Chest: Clear to auscultation Abdomen: Protuberant, soft, nontender, no organomegaly, bowel sounds are present Extremities: No edema Skin:discoloration in feet/legs Neuro: Not opening his Eyes, - Vital Signs Vital signs: Vital Signs - 12hr 11/14/18 11/14/18 11/14/18 03:15 03:30 03:34 Temperature 99.1 F Pulse Rate 82 87 Pulse Rate [ Anterior Bilateral Throughout] Pulse Rate [ From Monitor] Respiratory 18 15 Rate Respiratory Rate [Anterior Bilateral Throughout] Blood Pressure 92/54 91/51 O2 Sat by Pulse 97 96 Oximetry 11/14/18 11/14/18 11/14/18 03:45 04:00 04:15 Temperature Pulse Rate 88 77 58 L Pulse Rate [ Anterior Bilateral Throughout] Pulse Rate [ 58 L From Monitor] Respiratory 16 14 15 Rate Respiratory Rate [Anterior Bilateral Throughout] Blood Pressure 88/50 88/50 86/51 O2 Sat by Pulse 98 98 98 Oximetry 11/14/18 11/14/18 11/14/18 04:19 04:30 04:45 Temperature Pulse Rate 57 L 55 L 63 Pulse Rate [ Anterior Bilateral Throughout] Pulse Rate [ From Monitor] Respiratory 15 13 Rate Respiratory Rate [Anterior Bilateral Throughout] Blood Pressure 86/51 86/48 76/44 O2 Sat by Pulse 98 99 98 Oximetry 11/14/18 11/14/18 11/14/18 05:00 05:15 05:30 Temperature Pulse Rate 56 L 56 L 75 Pulse Rate [ Anterior Bilateral Throughout] Pulse Rate [ From Monitor] Respiratory 15 16 18 Rate Respiratory Rate [Anterior Bilateral Throughout] Blood Pressure 103/52 101/51 97/64 O2 Sat by Pulse 100 99 100 Oximetry 11/14/18 11/14/18 11/14/18 05:45 06:00 06:15 Temperature Pulse Rate 66 69 79 Pulse Rate [ Anterior Bilateral Throughout] Pulse Rate [ From Monitor] Respiratory 16 17 13 Rate Respiratory Rate [Anterior Bilateral Throughout] Blood Pressure 94/56 104/60 104/60 O2 Sat by Pulse 99 99 98 Oximetry 11/14/18 11/14/18 11/14/18 06:31 06:45 07:00 Temperature Pulse Rate 65 81 74 Pulse Rate [ Anterior Bilateral Throughout] Pulse Rate [ From Monitor] Respiratory 15 15 18 Rate Respiratory Rate [Anterior Bilateral Throughout] Blood Pressure 97/52 93/55 84/50 O2 Sat by Pulse 98 98 99 Oximetry 11/14/18 11/14/18 11/14/18 07:15 07:30 07:45 Temperature Pulse Rate 75 75 72 Pulse Rate [ Anterior Bilateral Throughout] Pulse Rate [ From Monitor] Respiratory 17 17 18 Rate Respiratory Rate [Anterior Bilateral Throughout] Blood Pressure 92/54 90/52 86/53 O2 Sat by Pulse 99 99 100 Oximetry 11/14/18 11/14/18 11/14/18 08:00 08:15 08:30 Temperature 97.7 F Pulse Rate 65 69 72 Pulse Rate [ Anterior Bilateral Throughout] Pulse Rate [ 90 From Monitor] Respiratory 20 21 19 Rate Respiratory Rate [Anterior Bilateral Throughout] Blood Pressure 77/47 98/56 99/54 O2 Sat by Pulse 98 98 99 Oximetry 11/14/18 11/14/18 11/14/18 08:45 08:48 08:52 Temperature Pulse Rate 64 73 Pulse Rate [ 80 Anterior Bilateral Throughout] Pulse Rate [ From Monitor] Respiratory 17 21 Rate Respiratory 21 Rate [Anterior Bilateral Throughout] Blood Pressure 98/54 104/64 O2 Sat by Pulse 99 98 Oximetry 11/14/18 11/14/18 11/14/18 09:00 09:09 09:15 Temperature Pulse Rate 80 89 Pulse Rate [ 84 Anterior Bilateral Throughout] Pulse Rate [ From Monitor] Respiratory 19 19 Rate Respiratory 19 Rate [Anterior Bilateral Throughout] Blood Pressure 101/59 105/58 O2 Sat by Pulse 100 99 Oximetry 11/14/18 11/14/18 11/14/18 09:30 09:45 10:00 Temperature Pulse Rate 89 87 81 Pulse Rate [ Anterior Bilateral Throughout] Pulse Rate [ From Monitor] Respiratory 20 18 17 Rate Respiratory Rate [Anterior Bilateral Throughout] Blood Pressure 96/59 99/57 98/52 O2 Sat by Pulse 98 98 95 Oximetry 11/14/18 11/14/18 11/14/18 10:15 10:30 10:45 Temperature Pulse Rate 88 97 H 93 H Pulse Rate [ Anterior Bilateral Throughout] Pulse Rate [ From Monitor] Respiratory 21 20 19 Rate Respiratory Rate [Anterior Bilateral Throughout] Blood Pressure 97/58 94/51 90/51 O2 Sat by Pulse 95 95 96 Oximetry 11/14/18 11/14/18 11/14/18 11:01 11:15 11:30 Temperature Pulse Rate 86 96 H 92 H Pulse Rate [ Anterior Bilateral Throughout] Pulse Rate [ From Monitor] Respiratory 22 24 20 Rate Respiratory Rate [Anterior Bilateral Throughout] Blood Pressure 105/64 105/64 113/71 O2 Sat by Pulse 100 100 99 Oximetry 11/14/18 11/14/18 11/14/18 11:45 11:47 12:00 Temperature 98.1 F Pulse Rate 109 H 95 H 109 H Pulse Rate [ Anterior Bilateral Throughout] Pulse Rate [ 69 From Monitor] Respiratory 20 22 18 Rate Respiratory Rate [Anterior Bilateral Throughout] Blood Pressure 111/61 111/61 100/66 O2 Sat by Pulse 96 98 98 Oximetry 11/14/18 11/14/18 11/14/18 12:15 12:31 12:45 Temperature Pulse Rate 100 H 117 H 102 H Pulse Rate [ Anterior Bilateral Throughout] Pulse Rate [ From Monitor] Respiratory 26 H 27 H 21 Rate Respiratory Rate [Anterior Bilateral Throughout] Blood Pressure 100/66 110/65 107/63 O2 Sat by Pulse 98 95 98 Oximetry 11/14/18 11/14/18 11/14/18 13:00 13:15 13:30 Temperature Pulse Rate 94 H 105 H 75 Pulse Rate [ Anterior Bilateral Throughout] Pulse Rate [ From Monitor] Respiratory 20 23 18 Rate Respiratory Rate [Anterior Bilateral Throughout] Blood Pressure 107/63 119/72 100/56 O2 Sat by Pulse 98 99 99 Oximetry 11/14/18 11/14/18 11/14/18 13:45 14:00 14:15 Temperature Pulse Rate 94 H 92 H 96 H Pulse Rate [ Anterior Bilateral Throughout] Pulse Rate [ From Monitor] Respiratory 23 18 22 Rate Respiratory Rate [Anterior Bilateral Throughout] Blood Pressure 108/66 107/68 112/63 O2 Sat by Pulse 94 98 99 Oximetry 11/14/18 14:30 Temperature Pulse Rate 91 H Pulse Rate [ Anterior Bilateral Throughout] Pulse Rate [ From Monitor] Respiratory 24 Rate Respiratory Rate [Anterior Bilateral Throughout] Blood Pressure 108/64 O2 Sat by Pulse 99 Oximetry - Lab 11/14/18 05:30 11/14/18 05:30 Most recent lab results Calcium 7.9 mg/dL (8.4-10.2) L 11/14/18 05:30 Phosphorus 2.50 mg/dL (2.5-4.5) D 11/14/18 05:30 Magnesium 2.10 mg/dL (1.7-2.3) 11/13/18 05:20 Medications & Allergies - Medications Allergies/Adverse Reactions: Allergies No Known Allergies Allergy (Verified 02/27/15 00:48) Home Medications: Home Medications Medication Instructions Recorded Confirmed Last Taken Type AtorvaSTATin [Lipitor] 40 mg FEEDTUBE QHS 06/21/16 11/11/18 06/20/16 History Ascorbic Acid [Vitamin C] 500 mg FEEDTUBE QDAY 07/14/18 11/11/18 Unknown History Aspirin [Adult Aspirin Regimen] 81 mg FEEDTUBE DAILY 07/14/18 11/11/18 Unknown History Ipratropium/Albuterol Sulfate 1 ampul IH Q6HR 07/14/18 11/11/18 Unknown History [DUONEB *Not for PRN Use*] Multivitamin [Multiple Vitamins] 1 each FEEDTUBE DAILY 07/14/18 11/11/18 Unknown History Protein Supplement [Promod] 30 ml FEEDTUBE Q8H 07/14/18 11/11/18 Unknown History Acetaminophen [Tylenol] 650 mg FEEDTUBE Q4HR PRN 11/11/18 11/11/18 Unknown History Gabapentin [Neurontin] 300 mg FEEDTUBE BID 11/11/18 11/11/18 Unknown History L. Acidophilus/L.bulgaricus 1 each FEEDTUBE QAM 11/11/18 11/11/18 Unknown History [Lactobacillus Tablet] Omeprazole 20 mg FEEDTUBE QAM 11/11/18 11/11/18 Unknown History Potassium Chloride 20 meq FEEDTUBE QDAY 11/11/18 11/11/18 Unknown History guaiFENesin DM [Robitussin Dm] 10 ml FEEDTUBE Q6HR PRN 11/11/18 11/11/18 Unknown History levoFLOXacin [Levaquin TAB] 500 mg FEEDTUBE QDAY 11/11/18 11/11/18 Unknown History Active Medications: Generic Name Dose Route Start Last Admin Trade Name Freq PRN Reason Stop Dose Admin Acetaminophen 650 mg 11/11/18 16:44 Tylenol FEEDTUBE Q4H PRN Pain, Mild (1-3) Albuterol 2.5 mg 11/11/18 15:42 Proventil IH Q3HRT PRN Shortness Of Breath Albuterol/Ipratropium 1 ampul 11/12/18 16:00 11/14/18 08:51 Duoneb *Not For Prn Use* IH 1 ampul Q8HRT SHIRA Administration Lipase/Protease/Amylase 1 each 11/12/18 14:42 Pancredonovan Lilly 10,500 Unit FEEDTUBE PRN PRN For Clogged Feeding Tube Ascorbic Acid 500 mg 11/12/18 10:00 11/14/18 10:39 Vitamin C FEEDTUBE 500 mg QDAY SHIRA Administration Atorvastatin Calcium 40 mg 11/11/18 22:00 11/13/18 21:12 Lipitor FEEDTUBE 40 mg QHS SHIRA Administration Gabapentin 300 mg 11/12/18 22:00 11/13/18 21:10 Neurontin PO 300 mg QHS SHIRA Administration Guaifenesin 10 ml 11/11/18 15:53 Guaifenesin Dm Syrup FEEDTUBE Q6HR PRN Cough Heparin Sodium (Porcine) 5,000 unit 11/12/18 14:00 11/14/18 10:40 Heparin SUB-Q 5,000 unit Q12HR SHIRA Administration Hydrophilic Ointment 1 applic 11/11/18 16:03 Vaseline Lip Therapy TP Q2HR PRN Dry Lips Cefepime HCl 2 gm in 100 mls @ 200 mls/hr 11/11/18 22:00 11/14/18 12:40 Maxipime/Ns 2 Gm/100 Ml IV 200 mls/hr Q12HR SHIRA Administration Protocol Midazolam HCl 100 mg/ Sodium 100 mls @ 2 mls/hr 11/11/18 17:00 Chloride IV TITR SHIRA Protocol 2 MG/HR Norepinephrine 4 mg in 250 mls @ 7.5 mls/hr 11/11/18 16:36 11/14/18 05:30 Levophed Drip 4 Mg/Ns 250 Ml IV 0 mcg/min TITR SHIRA 0 mls/hr Titration Protocol 2 MCG/MIN Sodium Chloride 1,000 mls @ 100 mls/hr 11/11/18 18:00 11/13/18 10:15 Nacl 0.9% 1000 Ml IV 11/15/18 03:59 100 mls/hr DIRECT SHIRA Administration Fentanyl Citrate 2,000 mcg in 100 mls @ 2.722 mls/hr 11/11/18 20:00 Fentanyl Drip Premix IV TITR SHIRA Protocol 1 MCG/KG/HR Sodium Chloride 1,000 mls @ 10 mls/hr 11/12/18 15:00 11/12/18 15:06 Nacl 0.9% 1000 Ml IV 10 mls/hr DIRECT SHIRA Administration Sodium Chloride 1,000 mls @ 75 mls/hr 11/13/18 22:00 11/14/18 12:46 Nacl 0.45% 1000 Ml IV 11/15/18 11:19 75 mls/hr DIRECT SHIRA Administration Linezolid 600 mg in 300 mls @ 300 mls/hr 11/14/18 12:00 11/14/18 14:10 Zyvox 600mg/300ml IV 300 mls/hr Q12H SHIRA Administration Protocol Insulin Human Lispro 0 unit 11/12/18 14:00 11/14/18 12:40 Humalog SUB-Q 4 unit Q6HR SHIRA Administration Protocol Lactobacillus Acidophilus 1 each 11/12/18 10:00 11/14/18 10:39 Floranex PO 1 each QAM SHIRA Administration Lansoprazole 30 mg 11/12/18 10:00 11/14/18 10:39 Prevacid Solutab FEEDTUBE 30 mg QDAY SHIRA Administration Methylprednisolone Sodium Succinate 60 mg 11/12/18 14:00 11/14/18 13:48 Solu-Medrol IV 60 mg Q8HR SHIRA Administration Midazolam HCl 2 mg 11/11/18 16:03 11/11/18 23:27 Versed IV 2 mg Q10MIN PRN Administration Sedation Multi-Ingred Cream/Lotion/Oil/Oint 1 applic 11/11/18 16:03 Artificial Tears Ophth Oint OU Q4HR PRN Dry Eye(s) Multivitamins 5 ml 11/12/18 10:00 11/14/18 10:39 Centrum Liq PO 5 ml QDAY SHIRA Administration Potassium Chloride 20 meq 11/12/18 10:00 11/14/18 10:39 Potassium Chloride FEEDTUBE 20 meq QDAY SHIRA Administration Potassium Phos/Sodium Phos 1 each 11/13/18 14:00 11/14/18 13:49 Phos-Nak PO 11/15/18 06:01 1 each Q8HR SHIRA Administration Simple Syrup 15 ml 11/12/18 14:42 Simple Syrup FEEDTUBE PRN PRN Hypoglycemia Simple Syrup 30 ml 11/12/18 14:42 Simple Syrup FEEDTUBE PRN PRN Hypoglycemia Sodium Bicarbonate 325 mg 11/12/18 14:42 Sodium Bicarbonate FEEDTUBE PRN PRN For Clogged Feeding Tube Sodium Chloride 10 ml 11/11/18 22:00 11/14/18 10:39 Sodium Chloride Flush Syringe 10 Ml IV 10 ml BID SHIRA Administration Sodium Chloride 10 ml 11/11/18 15:42 11/14/18 13:49 Sodium Chloride Flush Syringe 10 Ml IV 10 ml PRN PRN Administration LINE FLUSH
[2018-11-14] MEDS ORDERED: NACL 0.45% 1000 ML 1,000 ML IV SCH (16:00)
--- NOTE | 2018-11-14 16:07 | Progress Note ---
Assessment and Plan Assessment and plan: Severe Sepsis with shock. F/U Blood cx. sec UTI/PNA. Cont. Iv abx. Wean pressors to maintain MAP>65. Etiology secondary to UTI/PNA. ID following Acute hypoxemic resp failure. Cont. per Pulm. Etiology sec RLL PNA. However, elevated d-dimer--consider PE but Doppler negative. CTA chest when hem odynamically stable. Check Echo. UTi. Cont IV abx. F/U cx. CTAP (11-11-18) bilat hydro (no obstructing stone), bladder mass,Cystitis. Urology following and recommends conservative management. Toxic metabolic encephalopathy ARF. Etiology likely secondary to BETHEL secondary to atn/sepsis RLL Pneumonia. Cont Abx. Tracheal asp 11/11/2018 VISA (VANCOMYCIN INTERMEDIATE STAPH AUREUS). ID following The high probability of a clinically significant, sudden or life threatening deterioration of the [respiratory, hemodynamic] system(s) required my full and direct attention, intervention and personal management. The aggregate critical care time was [32] minutes. 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 Pt is stuporous and unable to provide history. History taken from SNF staff. As per SNF staff, the patient was found to be confused and nonresponsive. Pt seen and found to have Sepsis secondary to UTI, Acute Renal Failure, Acute Hypoxemic Respiratory Failure. Pt admitted to ICU and initiated on sepsis protocol. Hospitalist Physical - Constitutional Vitals: Temp Pulse Resp BP Pulse Ox 98.1 F 91 H 24 108/64 99 11/14/18 12:00 11/14/18 14:30 11/14/18 14:30 11/14/18 14:30 11/14/18 14:30 General appearance: Present: cachectic, other (intubated on mech ventilation) - EENT Eyes: Present: PERRL, EOM intact ENT: hearing intact, clear oral mucosa, dentition normal - Neck Neck: Present: supple, normal ROM - Respiratory Respiratory effort: normal Respiratory: bilateral: CTA - Cardiovascular Rhythm: regular Heart Sounds: Present: S1 & S2. Absent: gallop, rub - Extremities Extremities: no ischemia, No edema, Full ROM - Abdominal General gastrointestinal: soft, non-tender, non-distended, normal bowel sounds - Integumentary Integumentary: Present: clear, warm, dry - Neurologic Neurologic: CNII-XII intact, moves all extremities Results - Labs CBC & Chem 7: 11/14/18 05:30 11/14/18 05:30 Labs: Laboratory Last Values WBC 7.3 K/mm3 (4.5-11.0) 11/14/18 05:30 RBC 3.22 M/mm3 (3.65-5.03) L 11/14/18 05:30 Hgb 10.0 gm/dl (11.8-15.2) L 11/14/18 05:30 Hct 29.7 % (35.5-45.6) L 11/14/18 05:30 MCV 92 fl (84-94) 11/14/18 05:30 MCH 31 pg (28-32) 11/14/18 05:30 MCHC 34 % (32-34) 11/14/18 05:30 RDW 14.3 % (13.2-15.2) 11/14/18 05:30 Plt Count 137 K/mm3 (140-440) L 11/14/18 05:30 Lymph % (Auto) 2.9 % (13.4-35.0) L 11/11/18 09:55 [place] % (Auto) 5.7 % (0.0-7.3) 11/12/18 06:30 Eos % (Auto) 0.0 % (0.0-4.3) 11/12/18 06:30 Baso % (Auto) 0.3 % (0.0-1.8) 11/11/18 09:55 Lymph # 0.3 K/mm3 (1.2-5.4) L 11/11/18 09:55 [place] # 0.8 K/mm3 (0.0-0.8) 11/12/18 06:30 Eos # 0.0 K/mm3 (0.0-0.4) 11/12/18 06:30 Baso # 0.0 K/mm3 (0.0-0.1) 11/12/18 06:30 Add Manual Diff Complete 11/14/18 05:30 Total Counted 100 11/14/18 05:30 Seg Neutrophils % Slurry Tank Tender 11/14/18 05:30 Seg Neuts % (Manual) 89.0 % (40.0-70.0) H 11/14/18 05:30 Band Neutrophils % 2.0 % 11/14/18 05:30 Lymphocytes % (Manual) 3.0 % (13.4-35.0) L 11/14/18 05:30 Reactive Lymphs % (Man) 0 % 11/14/18 05:30 Monocytes % (Manual) 5.0 % (0.0-7.3) 11/14/18 05:30 Eosinophils % (Manual) 0 % (0.0-4.3) 11/14/18 05:30 Basophils % (Manual) 0 % (0.0-1.8) 11/14/18 05:30 Metamyelocytes % 1.0 % 11/14/18 05:30 Myelocytes % 0 % 11/14/18 05:30 Promyelocytes % 0 % 11/14/18 05:30 Blast Cells % 0 % 11/14/18 05:30 Nucleated RBC % Not Reportable 11/14/18 05:30 Seg Neutrophils # 13.7 K/mm3 (1.8-7.7) H 11/12/18 06:30 Seg Neutrophils # Man 6.5 K/mm3 (1.8-7.7) 11/14/18 05:30 Band Neutrophils # 0.1 K/mm3 11/14/18 05:30 Lymphocytes # (Manual) 0.2 K/mm3 (1.2-5.4) L 11/14/18 05:30 Abs React Lymphs (Man) 0.0 K/mm3 11/14/18 05:30 Monocytes # (Manual) 0.4 K/mm3 (0.0-0.8) 11/14/18 05:30 Eosinophils # (Manual) 0.0 K/mm3 (0.0-0.4) 11/14/18 05:30 Basophils # (Manual) 0.0 K/mm3 (0.0-0.1) 11/14/18 05:30 Metamyelocytes # 0.1 K/mm3 11/14/18 05:30 Myelocytes # 0.0 K/mm3 11/14/18 05:30 Promyelocytes # 0.0 K/mm3 11/14/18 05:30 Blast Cells # 0.0 K/mm3 11/14/18 05:30 WBC Morphology Not Reportable 11/14/18 05:30 Hypersegmented Neuts Not Reportable 11/14/18 05:30 Hyposegmented Neuts Not Reportable 11/14/18 05:30 Hypogranular Neuts Not Reportable 11/14/18 05:30 Smudge Cells Not Reportable 11/14/18 05:30 Toxic Granulation Not Reportable 11/14/18 05:30 Toxic Vacuolation Not Reportable 11/14/18 05:30 Dohle Bodies Not Reportable 11/14/18 05:30 Pelger-Huet Anomaly Not Reportable 11/14/18 05:30 Meghan Rods Not Reportable 11/14/18 05:30 Platelet Estimate Consistent w auto 11/14/18 05:30 Clumped Platelets Not Reportable 11/14/18 05:30 Plt Clumps, EDTA Not Reportable 11/14/18 05:30 Large Platelets Not Reportable 11/14/18 05:30 Giant Platelets Not Reportable 11/14/18 05:30 Platelet Satelliting Not Reportable 11/14/18 05:30 Plt Morphology Comment Not Reportable 11/14/18 05:30 RBC Morphology Not Reportable 11/14/18 05:30 Dimorphic RBCs Not Reportable 11/14/18 05:30 Polychromasia Not Reportable 11/14/18 05:30 Hypochromasia 1+ 11/14/18 05:30 Poikilocytosis Not Reportable 11/14/18 05:30 Anisocytosis Few 11/14/18 05:30 Microcytosis Not Reportable 11/14/18 05:30 Macrocytosis Not Reportable 11/14/18 05:30 Spherocytes Not Reportable 11/14/18 05:30 Pappenheimer Bodies Not Reportable 11/14/18 05:30 Sickle Cells Not Reportable 11/14/18 05:30 Target Cells Not Reportable 11/14/18 05:30 Tear Drop Cells Not Reportable 11/14/18 05:30 Ovalocytes Not Reportable 11/14/18 05:30 Helmet Cells Not Reportable 11/14/18 05:30 [place] Bodies Not Reportable 11/14/18 05:30 [place] Rings Not Reportable 11/14/18 05:30 Constantino Cells Not Reportable 11/14/18 05:30 Bite Cells Not Reportable 11/14/18 05:30 Crenated Cell Not Reportable 11/14/18 05:30 Elliptocytes Not Reportable 11/14/18 05:30 Acanthocytes (Spur) Not Reportable 11/14/18 05:30 Rouleaux Not Reportable 11/14/18 05:30 Hemoglobin C Crystals Not Reportable 11/14/18 05:30 Schistocytes Not Reportable 11/14/18 05:30 Malaria parasites Not Reportable 11/14/18 05:30 [place] Bodies Not Reportable 11/14/18 05:30 Hem Pathologist Commnt No 11/14/18 05:30 D-Dimer 2061.41 ng/mlDDU (0-234) H 11/11/18 20:41 POC ABG pH 7.294 (7.35-7.45) L 11/14/18 04:24 POC ABG pCO2 39.8 (35-45) 11/14/18 04:24 POC ABG pO2 86 (80-105) 11/14/18 04:24 POC ABG HCO3 19.3 11/14/18 04:24 POC ABG Total CO2 20 11/14/18 04:24 POC ABG O2 Sat 95 11/14/18 04:24 POC ABG Base Excess -7 11/14/18 04:24 VBG pH 7.343 (7.320-7.420) 11/11/18 15:04 FiO2 30 % 11/14/18 04:24 Sodium 150 mmol/L (137-145) H 11/14/18 05:30 Potassium 3.7 mmol/L (3.6-5.0) 11/14/18 05:30 Chloride 121.3 mmol/L (98-107) H 11/14/18 05:30 Carbon Dioxide 22 mmol/L (22-30) 11/14/18 05:30 Anion Gap 10 mmol/L 11/14/18 05:30 BUN 40 mg/dL (9-20) H 11/14/18 05:30 Creatinine 0.6 mg/dL (0.8-1.5) L 11/14/18 05:30 Estimated GFR > 60 ml/min 11/14/18 05:30 BUN/Creatinine Ratio 67 % 11/14/18 05:30 Glucose 241 mg/dL (75-100) H 11/14/18 05:30 POC Glucose 277 (70-105) H 11/14/18 11:36 Lactic Acid 1.10 mmol/L (0.7-2.0) 11/11/18 23:19 Calcium 7.9 mg/dL (8.4-10.2) L 11/14/18 05:30 Phosphorus 2.50 mg/dL (2.5-4.5) D 11/14/18 05:30 Magnesium 2.10 mg/dL (1.7-2.3) 11/13/18 05:20 Total Bilirubin 0.40 mg/dL (0.1-1.2) 11/12/18 06:30 AST 17 units/L (5-40) 11/12/18 06:30 ALT 11 units/L (7-56) 11/12/18 06:30 Alkaline Phosphatase 72 units/L (35-129) 11/12/18 06:30 C-Reactive Protein 13.70 mg/dL (0.00-1.30) H 11/11/18 20:41 Total Protein 5.2 g/dL (6.3-8.2) L 11/12/18 06:30 Albumin 2.0 g/dL (3.9-5) L 11/12/18 06:30 Albumin/Globulin Ratio 0.6 % 11/12/18 06:30 TSH 0.900 mlU/mL (0.270-4.200) 11/11/18 09:55 Urine Color [place] (Yellow) 11/11/18 10:22 Urine Turbidity Turbid (Clear) 11/11/18 10:22 Urine pH 8.0 (5.0-7.0) H 11/11/18 10:22 Ur Specific [place] 1.011 (1.003-1.030) 11/11/18 10:22 Urine Protein 100 mg/dl mg/dL (Negative) 11/11/18 10:22 Urine Glucose (UA) Neg mg/dL (Negative) 11/11/18 10:22 Urine Ketones Neg mg/dL (Negative) 11/11/18 10:22 Urine Blood Sm (Negative) 11/11/18 10:22 Urine Nitrite Neg (Negative) 11/11/18 10:22 Urine Bilirubin Neg (Negative) 11/11/18 10:22 Urine Urobilinogen < 2.0 mg/dL (<2.0) 11/11/18 10:22 Ur Leukocyte Esterase Lg (Negative) 11/11/18 10:22 Urine WBC (Auto) > 182.0 /HPF (0.0-6.0) H 11/11/18 10:22 Urine RBC (Auto) 27.0 /HPF (0.0-6.0) 11/11/18 10:22 Urine Bacteria (Auto) 3+ /HPF (Negative) 11/11/18 10:22 Urine WBC Clumps 3+ /HPF 11/11/18 10:22 Urine Mucus Few /HPF 11/11/18 10:22 Plasma/Serum Alcohol < 0.01 % (0-0.07) 11/11/18 09:55 Nutrition/Malnutrition Assess - Dietary Evaluation Nutrition/Malnutrition Findings: Nutrition Notes Start: 11/12/18 09:27 Freq: Status: Active Protocol: Document 11/12/18 09:27 CP (Rec: 11/12/18 09:[address] [id number] Co-Sign 11/12/18 09:27 LP Nutrition Notes Need for Assessment generated from: MD Order Initial or Follow up Assessment Current Diagnosis Acute Kidney Injury COPD Sepsis Respiratory Failure Other Pertinent Diagnosis Dysphagia, DVT prophylaxis, AMS, UTI, bilateral hydronephrosis Current Diet NPO Labs/Tests BUN: 93 Glu: 182 PRO: 5.2 Pertinent Medications Reviewed Height 5 ft 7 in Weight 54.43 kg [place] Body Weight (kg) 67.27 BMI 18.8 Weight Status Appropriate Subjective/Other Information RD consulted for TF. Percent of energy/protein needs met: 0%/0% Burn Absent Trauma Absent #1 Nutrition Diagnosis Inadequate oral intake Etiology AMS, dysphagia, mechanical vent As Evidenced by Signs and Symptoms NPO status Is patient on ventilator? Yes Is Patient Ambulatory and/or Out of Bed No REE-([facility]-confined to bed) 1580.616 Calculation Used for Recommendations [facility] Additional Notes PRO: 65-109g (1.2-2 g/kg ABW) Fluid: 1 mL/kcal Nutrition Intervention Change Diet Order: TF Nutrition Support: Glucerna 1.2 at 55mL/hr Kcal 1,584 Protein (gm) 79 Fluid (mL) 1,063 Fiber (gm) 21 Goal #1 TF to meet at least 80% of PRO and energy needs. Goal #2 TF tolerance Follow-Up By: 11/15/18 Additional Comments F/U: TF start and TF tolerance
--- NOTE | 2018-11-14 17:56 | Progress Note ---
Assessment and Plan Acute hypoxemic respiratory failure, on mechanical ventilatory support. Acute on chronic encephalopathy. Severe sepsis with shock, presumably due to UTI Urinary tract infection. Acute kidney injury. Likely bladder outlet obstruction. Bilateral hydronephrosis. Nephrolithiasis. History of diabetes. Hypertension. Chronic obstructive lung disease. Prior cerebrovascular accident with left hemiparesis. Oropharyngeal dysphagia. Metabolic acidosis. Hyponatremia, moderate. Adult failure to thrive. - reduced set rate to 12/min - continue daily SBT's - tentative extubation in am if less lethargic - continue IV 0.45 NS at 75 mls/hr X 2 more liters - continue to wean levophed for MAP > 65 mmHg - continue bronchodilators with pulmonary hygiene per RT - daily SAT's - VAP bundle addressed - nephrology evaluation - continue slade catheter and follow urologist recommendations - begin enteral nutrition as tolerated - target sedation for RASS 0 to -1 - PT/OT/ROM exercises as tolerated - mobility protocol for pressure ulcer prophylaxis - continue GI & VTE prophylaxis - continue other care per attending / other consultants ...... re-evaluate in am & prn The high probability of a clinically significant, sudden or life threatening deterioration of the [cardiac, respiratory and neurologic] system(s) required my full and direct attention, intervention and personal management. The aggregate critical care time was [35] minutes. This time is in addition to time spent performing reported procedures but includes the following: [x] Data Review and interpretation [x] Patient assessment and monitoring of vital signs [x] Documentation [x] Medication orders and management Subjective Date of service: 11/14/18 Principal diagnosis: Acute Hypoxemic Resp Failure; Severe sepsis with shock; UTI; BETHEL Interval history: Patient is seen today for: Acute hypoxemic respiratory failure on mechanical ventilatory support; Acute on chronic encephalopathy; Severe sepsis with shock, presumably due to UTI; Urinary tract infection; Acute kidney injury. Seen and examined at bedside; 24hour events reviewed; nursing and respiratory care staff consulted; no adverse overnight events reported to me; resting peacefully in bed; BP's still labile; tolerating SBT better but mental status is sub-optimal; CVP's now running 6-7 mmHg; No emesis or overt aspiration Objective Vital Signs - 12hr 11/14/18 11/14/18 11/14/18 06:00 06:15 06:31 Temperature Pulse Rate 69 79 65 Pulse Rate [ Anterior Bilateral Throughout] Pulse Rate [ From Monitor] Respiratory 17 13 15 Rate Respiratory Rate [Anterior Bilateral Throughout] Blood Pressure 104/60 104/60 97/52 O2 Sat by Pulse 99 98 98 Oximetry 11/14/18 11/14/18 11/14/18 06:45 07:00 07:15 Temperature Pulse Rate 81 74 75 Pulse Rate [ Anterior Bilateral Throughout] Pulse Rate [ From Monitor] Respiratory 15 18 17 Rate Respiratory Rate [Anterior Bilateral Throughout] Blood Pressure 93/55 84/50 92/54 O2 Sat by Pulse 98 99 99 Oximetry 11/14/18 11/14/18 11/14/18 07:30 07:45 08:00 Temperature 97.7 F Pulse Rate 75 72 65 Pulse Rate [ Anterior Bilateral Throughout] Pulse Rate [ 90 From Monitor] Respiratory 17 18 20 Rate Respiratory Rate [Anterior Bilateral Throughout] Blood Pressure 90/52 86/53 77/47 O2 Sat by Pulse 99 100 98 Oximetry 11/14/18 11/14/18 11/14/18 08:15 08:30 08:45 Temperature Pulse Rate 69 72 64 Pulse Rate [ Anterior Bilateral Throughout] Pulse Rate [ From Monitor] Respiratory 21 19 17 Rate Respiratory Rate [Anterior Bilateral Throughout] Blood Pressure 98/56 99/54 98/54 O2 Sat by Pulse 98 99 99 Oximetry 11/14/18 11/14/18 11/14/18 08:48 08:52 09:00 Temperature Pulse Rate 73 80 Pulse Rate [ 80 Anterior Bilateral Throughout] Pulse Rate [ From Monitor] Respiratory 21 19 Rate Respiratory 21 Rate [Anterior Bilateral Throughout] Blood Pressure 104/64 101/59 O2 Sat by Pulse 98 100 Oximetry 11/14/18 11/14/18 11/14/18 09:09 09:15 09:30 Temperature Pulse Rate 89 89 Pulse Rate [ 84 Anterior Bilateral Throughout] Pulse Rate [ From Monitor] Respiratory 19 20 Rate Respiratory 19 Rate [Anterior Bilateral Throughout] Blood Pressure 105/58 96/59 O2 Sat by Pulse 99 98 Oximetry 11/14/18 11/14/18 11/14/18 09:45 10:00 10:15 Temperature Pulse Rate 87 81 88 Pulse Rate [ Anterior Bilateral Throughout] Pulse Rate [ From Monitor] Respiratory 18 17 21 Rate Respiratory Rate [Anterior Bilateral Throughout] Blood Pressure 99/57 98/52 97/58 O2 Sat by Pulse 98 95 95 Oximetry 11/14/18 11/14/1819 10:30 10:45 11:01 Temperature Pulse Rate 97 H 93 H 86 Pulse Rate [ Anterior Bilateral Throughout] Pulse Rate [ From Monitor] Respiratory 20 19 22 Rate Respiratory Rate [Anterior Bilateral Throughout] Blood Pressure 94/51 90/51 105/64 O2 Sat by Pulse 95 96 100 Oximetry 11/14/18 11/14/18 11/14/18 11:15 11:30 11:45 Temperature Pulse Rate 96 H 92 H 109 H Pulse Rate [ Anterior Bilateral Throughout] Pulse Rate [ From Monitor] Respiratory 24 20 20 Rate Respiratory Rate [Anterior Bilateral Throughout] Blood Pressure 105/64 113/71 111/61 O2 Sat by Pulse 100 99 96 Oximetry 11/14/18 11/14/18 11/14/18 11:47 12:00 12:15 Temperature 98.1 F Pulse Rate 95 H 109 H 100 H Pulse Rate [ Anterior Bilateral Throughout] Pulse Rate [ 69 From Monitor] Respiratory 22 18 26 H Rate Respiratory Rate [Anterior Bilateral Throughout] Blood Pressure 111/61 100/66 100/66 O2 Sat by Pulse 98 98 98 Oximetry 11/14/18 11/14/18 11/14/18 12:31 12:45 13:00 Temperature Pulse Rate 117 H 102 H 94 H Pulse Rate [ Anterior Bilateral Throughout] Pulse Rate [ From Monitor] Respiratory 27 H 21 20 Rate Respiratory Rate [Anterior Bilateral Throughout] Blood Pressure 110/65 107/63 107/63 O2 Sat by Pulse 95 98 98 Oximetry 11/14/18 11/14/18 11/14/18 13:15 13:30 13:45 Temperature Pulse Rate 105 H 75 94 H Pulse Rate [ Anterior Bilateral Throughout] Pulse Rate [ From Monitor] Respiratory 23 18 23 Rate Respiratory Rate [Anterior Bilateral Throughout] Blood Pressure 119/72 100/56 108/66 O2 Sat by Pulse 99 99 94 Oximetry 11/14/18 11/14/18 11/14/18 14:00 14:15 14:30 Temperature Pulse Rate 92 H 96 H 91 H Pulse Rate [ Anterior Bilateral Throughout] Pulse Rate [ From Monitor] Respiratory 18 22 24 Rate Respiratory Rate [Anterior Bilateral Throughout] Blood Pressure 107/68 112/63 108/64 O2 Sat by Pulse 98 99 99 Oximetry 11/14/18 11/14/18 11/14/18 17:14 17:21 17:34 Temperature Pulse Rate 78 Pulse Rate [ 86 87 Anterior Bilateral Throughout] Pulse Rate [ From Monitor] Respiratory 19 Rate Respiratory 21 18 Rate [Anterior Bilateral Throughout] Blood Pressure 109/59 O2 Sat by Pulse 100 Oximetry Constitutional: appears uncomfortable, other (elderly, chronically ill looking CM, normocephalic and atraumatic with increased respiratory effort at rest) Eyes: non-icteric ENT: oropharynx moist, other (ETT 24 cm AMA) Neck: supple, no lymphadenopathy, no JVD, other (no thyromegaly) Effort: mildly labored Ascultation: Bilateral: diminished breath sounds, rhonchi Percussion: Bilateral: not dull Cardiovascular: regular rate and rhythm Gastrointestinal: normoactive bowel sounds, soft, non-tender, non-distended Integumentary: rash, other (poor turgor; decubitus ulcer) Extremities: no edema, pink and warm, pulses normal, other (? early digital gangrene) Neurologic: non-focal exam, unable to assess Psychiatric: other (unable to assess) CBC and BMP: 11/14/18 05:30 11/15/18 09:55 ABG, PT/INR, D-dimer: ABG POC ABG pH 7.294 (7.35-7.45) L 11/14/18 04:24 POC ABG pCO2 39.8 (35-45) 11/14/18 04:24 POC ABG pO2 86 (80-105) 11/14/18 04:24 POC ABG HCO3 19.3 11/14/18 04:24 POC ABG Total CO2 20 11/14/18 04:24 POC ABG O2 Sat 95 11/14/18 04:24 PT/INR, D-dimer D-Dimer 2061.41 ng/mlDDU (0-234) H 11/11/18 20:41 Abnormal lab findings: Abnormal Labs 11/11/18 11/11/18 11/11/18 09:55 09:55 10:22 WBC RBC Hgb Hct MCHC 35 H Plt Count Lymph % (Auto) 2.9 L Faulk % (Auto) 9.8 H Lymph # 0.3 L Faulk # 1.0 H Seg Neutrophils % 87.0 H Seg Neuts % (Manual) Lymphocytes % (Manual) Seg Neutrophils # 8.7 H Seg Neutrophils # Man Lymphocytes # (Manual) D-Dimer POC ABG pH POC ABG pCO2 POC ABG pO2 Sodium 129 L Chloride 95.5 L Carbon Dioxide 18 L BUN 155 H Creatinine 3.1 H Glucose 196 H POC Glucose Calcium Phosphorus C-Reactive Protein Total Protein Albumin 2.4 L Urine pH 8.0 H Urine WBC (Auto) > 182.0 H 11/11/18 11/11/18 11/11/18 12:04 18:36 20:41 WBC RBC Hgb Hct MCHC Plt Count Lymph % (Auto) Faulk % (Auto) Lymph # Faulk # Seg Neutrophils % Seg Neuts % (Manual) Lymphocytes % (Manual) Seg Neutrophils # Seg Neutrophils # Man Lymphocytes # (Manual) D-Dimer POC ABG pH 7.335 L 7.256 L POC ABG pCO2 34.8 L POC ABG pO2 55 L 74 L Sodium Chloride Carbon Dioxide BUN Creatinine Glucose POC Glucose Calcium Phosphorus C-Reactive Protein 13.70 H Total Protein Albumin Urine pH Urine WBC (Auto) 11/11/18 11/11/18 11/12/18 20:41 21:37 04:20 WBC RBC Hgb Hct MCHC Plt Count Lymph % (Auto) Faulk % (Auto) Lymph # Faulk # Seg Neutrophils % Seg Neuts % (Manual) Lymphocytes % (Manual) Seg Neutrophils # Seg Neutrophils # Man Lymphocytes # (Manual) D-Dimer 2061.41 H POC ABG pH 7.328 L POC ABG pCO2 32.9 L 27.6 L POC ABG pO2 170 H Sodium Chloride Carbon Dioxide BUN Creatinine Glucose POC Glucose Calcium Phosphorus C-Reactive Protein Total Protein Albumin Urine pH Urine WBC (Auto) 11/12/18 11/12/18 11/12/18 05:14 06:30 06:30 WBC 15.3 H RBC Hgb Hct 34.9 L MCHC Plt Count Lymph % (Auto) Faulk % (Auto) Lymph # Faulk # Seg Neutrophils % Seg Neuts % (Manual) 94.0 H Lymphocytes % (Manual) 1.0 L Seg Neutrophils # 13.7 H Seg Neutrophils # Man 14.4 H Lymphocytes # (Manual) 0.2 L D-Dimer POC ABG pH POC ABG pCO2 POC ABG pO2 Sodium Chloride 113.2 H Carbon Dioxide 19 L BUN 93 H Creatinine Glucose 182 H POC Glucose 176 H Calcium 7.9 L Phosphorus C-Reactive Protein Total Protein 5.2 L Albumin 2.0 L Urine pH Urine WBC (Auto) 11/12/18 11/12/1811/13/19 12:23 18:20 00:17 WBC RBC Hgb Hct MCHC Plt Count Lymph % (Auto) Faulk % (Auto) Lymph # Faulk # Seg Neutrophils % Seg Neuts % (Manual) Lymphocytes % (Manual) Seg Neutrophils # Seg Neutrophils # Man Lymphocytes # (Manual) D-Dimer POC ABG pH POC ABG pCO2 POC ABG pO2 Sodium Chloride Carbon Dioxide BUN Creatinine Glucose POC Glucose 201 H 218 H 222 H Calcium Phosphorus C-Reactive Protein Total Protein Albumin Urine pH Urine WBC (Auto) 11/13/18 11/13/18 11/13/18 04:41 04:53 05:20 WBC RBC 3.62 L Hgb 11.3 L Hct 32.8 L MCHC Plt Count Lymph % (Auto) Faulk % (Auto) Lymph # Faulk # Seg Neutrophils % Seg Neuts % (Manual) 90.0 H Lymphocytes % (Manual) 5.0 L Seg Neutrophils # Seg Neutrophils # Man 8.8 H Lymphocytes # (Manual) 0.5 L D-Dimer POC ABG pH POC ABG pCO2 31.0 L POC ABG pO2 Sodium Chloride Carbon Dioxide BUN Creatinine Glucose POC Glucose 238 H Calcium Phosphorus C-Reactive Protein Total Protein Albumin Urine pH Urine WBC (Auto) 11/13/18 11/13/18 11/13/18 05:20 11:58 17:47 WBC RBC Hgb Hct MCHC Plt Count Lymph % (Auto) Faulk % (Auto) Lymph # Faulk # Seg Neutrophils % Seg Neuts % (Manual) Lymphocytes % (Manual) Seg Neutrophils # Seg Neutrophils # Man Lymphocytes # (Manual) D-Dimer POC ABG pH POC ABG pCO2 POC ABG pO2 Sodium 149 H Chloride 120.8 H Carbon Dioxide 18 L BUN 52 H Creatinine 0.7 L Glucose 247 H POC Glucose 306 H 217 H Calcium 7.8 L Phosphorus 1.90 L C-Reactive Protein Total Protein Albumin Urine pH Urine WBC (Auto) 11/13/18 11/14/18 11/14/18 23:05 04:24 05:30 WBC RBC Hgb Hct MCHC Plt Count Lymph % (Auto) Faulk % (Auto) Lymph # Faulk # Seg Neutrophils % Seg Neuts % (Manual) Lymphocytes % (Manual) Seg Neutrophils # Seg Neutrophils # Man Lymphocytes # (Manual) D-Dimer POC ABG pH 7.294 L POC ABG pCO2 POC ABG pO2 Sodium 150 H Chloride 121.3 H Carbon Dioxide BUN 40 H Creatinine 0.6 L Glucose 241 H POC Glucose 207 H Calcium 7.9 L Phosphorus C-Reactive Protein Total Protein Albumin Urine pH Urine WBC (Auto) 11/14/18 11/14/18 11/14/18 05:30 05:32 11:36 WBC RBC 3.22 L Hgb 10.0 L Hct 29.7 L MCHC Plt Count 137 L Lymph % (Auto) Faulk % (Auto) Lymph # Faulk # Seg Neutrophils % Seg Neuts % (Manual) 89.0 H Lymphocytes % (Manual) 3.0 L Seg Neutrophils # Seg Neutrophils # Man Lymphocytes # (Manual) 0.2 L D-Dimer POC ABG pH POC ABG pCO2 POC ABG pO2 Sodium Chloride Carbon Dioxide BUN Creatinine Glucose POC Glucose 235 H 277 H Calcium Phosphorus C-Reactive Protein Total Protein Albumin Urine pH Urine WBC (Auto) Allied health notes reviewed: nursing
[2018-11-14] MEDS: NEURONTIN PO SCH (21:45)
[2018-11-15] MEDS: ZYVOX 600MG/300ML 600 MG/300 ML BAG IV SCH ×2 (00:04→13:02)
[2018-11-15] MEDS: HumaLOG SUB-Q SCH ×4 (00:04→18:49)
[2018-11-15] MEDS: FREE WATER PO SCH ×4 (00:04→18:48)
[2018-11-15] MEDS: LEVOPHED DRIP 4 MG/NS 250 ML 4 MG/250 ML BAG IV SCH (01:22)
[2018-11-15] MEDS: DUONEB *Not for PRN Use IH SCH ×4 (01:29→23:56)
[2018-11-15] MEDS: SOLU-Medrol IV SCH ×3 (05:05→22:14)
[2018-11-15] MEDS: PHOS-NAK PO SCH (05:06)
--- NOTE | 2018-11-15 05:26 | XRay Report ---
FINAL REPORT PROCEDURE: XR CHEST 1V AP TECHNIQUE: Chest radiograph anteroposterior view. CPT 16273 HISTORY: follow up respiratory failure COMPARISON: 11/14/2018 FINDINGS: Heart: Normal. Mediastinum/Vessels: Normal. Lungs/Pleural space: There is suboptimal inspiration. There are infiltrates at the right lung base. T here are no effusions or pneumothoraces.. Bony thorax: No acute osseous abnormality. Life support devices: The endotracheal tube is in the mid trachea. There is a right internal jugular vein central venous catheter. The tip is in the superior vena cava. IMPRESSION: The heart size is normal.. There is suboptimal inspiration. There are infiltrates at the right lung base. There are no effusions or pneumothoraces.. The endotracheal tube is in the mid trachea. There is a right internal jugular vein central venous ca theter. The tip is in the superior vena cava.
--- NOTE | 2018-11-15 08:00 | Progress Note ---
Assessment and Plan - Patient Problems (1) ARF (acute renal failure) with tubular necrosis Current Visit: Yes Status: Acute Plan to address problem: Overall renal function is improved. Will monitor. (2) Altered mental status Current Visit: Yes Status: Acute Plan to address problem: Secondary to toxic/metabolic encephalopathy. (3) Hydronephrosis Current Visit: Yes Status: Acute Plan to address problem: slade placement with adequate urine output noted. (4) Hypernatremia Current Visit: Yes Status: Acute Plan to address problem: Will assess labs this am. On FWF and was started on D5 1/2 NS. May need to consider switch to D5W if levels are worsening. (5) Sepsis Current Visit: Yes Status: Acute Qualifiers: Sepsis type: sepsis due to unspecified organism Qualified Code(s): A41.9 - Sepsis, unspecified organism Plan to address problem: Weaned off pressors, on antibiotics. ID on case and will appreciate further recommendations/input (6) Acute respiratory failure with hypoxemia Current Visit: No Status: Acute Plan to address problem: Intubated, management per pulmonology. (7) Hypophosphatemia Current Visit: Yes Status: Acute Plan to address problem: Replete per protocol. Subjective Date of service: 11/15/18 Principal diagnosis: Acute Hypoxemic Resp Failure; Severe sepsis with shock; UTI; BETHEL Interval history: No acute issues overnight. Labs pending this am. FWF at 300 cc q6 and was placed on D51/2 NS at 75 cc/hr. Renal function stable. Objective - Vital Signs Vital signs: Vital Signs - 12hr 11/14/18 11/14/18 11/14/18 20:00 20:15 20:30 Temperature 99.3 F Pulse Rate 88 82 93 H Pulse Rate [ From Monitor] Respiratory 18 18 23 Rate Blood Pressure 97/59 91/54 101/62 O2 Sat by Pulse 100 99 98 Oximetry 11/14/18 11/14/18 11/14/18 20:45 21:00 21:15 Temperature Pulse Rate 87 94 H 86 Pulse Rate [ From Monitor] Respiratory 21 21 18 Rate Blood Pressure 97/60 102/61 98/59 O2 Sat by Pulse 98 98 98 Oximetry 11/14/18 11/14/18 11/14/18 21:30 21:45 22:00 Temperature Pulse Rate 91 H 80 83 Pulse Rate [ From Monitor] Respiratory 16 20 19 Rate Blood Pressure 102/61 97/57 103/57 O2 Sat by Pulse 97 98 98 Oximetry 11/14/18 11/14/18 11/14/18 22:15 22:30 22:45 Temperature Pulse Rate 76 85 81 Pulse Rate [ From Monitor] Respiratory 20 21 22 Rate Blood Pressure 99/58 98/59 100/61 O2 Sat by Pulse 98 98 98 Oximetry 11/14/18 11/14/18 11/14/18 23:00 23:15 23:30 Temperature Pulse Rate 79 65 60 Pulse Rate [ From Monitor] Respiratory 20 15 16 Rate Blood Pressure 92/65 89/53 92/61 O2 Sat by Pulse 98 97 99 Oximetry 11/14/18 11/15/18 11/15/18 23:45 00:00 00:15 Temperature 99.1 F Pulse Rate 66 58 L 57 L Pulse Rate [ 57 L From Monitor] Respiratory 17 14 15 Rate Blood Pressure 92/61 91/54 82/47 O2 Sat by Pulse 99 98 Oximetry 11/15/18 11/15/18 11/15/18 00:19 00:30 00:45 Temperature Pulse Rate 58 L 56 L 56 L Pulse Rate [ From Monitor] Respiratory 14 17 15 Rate Blood Pressure 78/42 90/54 91/54 O2 Sat by Pulse 97 97 97 Oximetry 11/15/18 11/15/18 11/15/18 01:00 01:15 01:30 Temperature Pulse Rate 57 L 54 L 54 L Pulse Rate [ From Monitor] Respiratory 15 14 13 Rate Blood Pressure 91/54 90/53 89/53 O2 Sat by Pulse 96 97 97 Oximetry 11/15/18 11/15/18 11/15/18 01:45 02:00 02:15 Temperature Pulse Rate 53 L 51 L 63 Pulse Rate [ From Monitor] Respiratory 14 13 18 Rate Blood Pressure 91/56 96/55 106/61 O2 Sat by Pulse 98 98 99 Oximetry 11/15/18 11/15/18 11/15/18 02:31 02:45 03:00 Temperature Pulse Rate 66 59 L 57 L Pulse Rate [ From Monitor] Respiratory 15 14 14 Rate Blood Pressure 104/62 90/51 86/53 O2 Sat by Pulse 99 97 99 Oximetry 11/15/18 11/15/18 11/15/18 03:15 03:30 03:45 Temperature Pulse Rate 57 L 55 L 55 L Pulse Rate [ From Monitor] Respiratory 14 13 14 Rate Blood Pressure 83/50 82/50 79/47 O2 Sat by Pulse 99 99 99 Oximetry 11/15/18 11/15/18 11/15/18 04:00 04:04 04:15 Temperature 98.8 F Pulse Rate 53 L 60 61 Pulse Rate [ 68 From Monitor] Respiratory 16 16 Rate Blood Pressure 97/46 105/71 105/71 O2 Sat by Pulse 100 99 99 Oximetry 11/15/18 11/15/18 11/15/18 04:31 04:45 05:00 Temperature Pulse Rate 65 60 68 Pulse Rate [ From Monitor] Respiratory 19 15 15 Rate Blood Pressure 43/26 43/26 107/61 O2 Sat by Pulse 94 99 Oximetry 11/15/18 11/15/18 11/15/18 05:15 05:30 05:45 Temperature Pulse Rate 75 73 55 L Pulse Rate [ From Monitor] Respiratory 16 17 17 Rate Blood Pressure 98/60 98/63 86/36 O2 Sat by Pulse 99 100 Oximetry 11/15/18 11/15/18 11/15/18 06:01 06:15 06:31 Temperature Pulse Rate 52 L 44 L 44 L Pulse Rate [ From Monitor] Respiratory 11 L 12 13 Rate Blood Pressure 82/45 82/45 106/61 O2 Sat by Pulse 100 99 100 Oximetry 11/15/18 11/15/18 11/15/18 06:45 07:00 07:15 Temperature Pulse Rate 50 L 52 L 64 Pulse Rate [ From Monitor] Respiratory 14 13 17 Rate Blood Pressure 111/63 111/63 95/63 O2 Sat by Pulse 100 100 100 Oximetry 11/15/18 07:30 Temperature Pulse Rate 75 Pulse Rate [ From Monitor] Respiratory 18 Rate Blood Pressure 98/63 O2 Sat by Pulse 100 Oximetry - General Appearance General appearance: intubated EENT: ATNC, PERRL Respiratory: Present: Clear to Ascultation Cardiology: regular, S1S2 Gastrointestinal: normal, normoactive bowel sounds Integumentary: no rash Neurologic: no focal deficit Musculoskeletal: other (-edema ) - Lab 11/14/18 05:30 11/14/18 05:30 Most recent lab results Calcium 7.9 mg/dL (8.4-10.2) L 11/14/18 05:30 Phosphorus 2.50 mg/dL (2.5-4.5) D 11/14/18 05:30 Magnesium 2.10 mg/dL (1.7-2.3) 11/13/18 05:20 - Imaging Chest x-ray: pending - Allied health notes Allied health notes reviewed: nursing Medications & Allergies - Medications Allergies/Adverse Reactions: Allergies No Known Allergies Allergy (Verified 02/27/15 00:48) Home Medications: Home Medications Medication Instructions Recorded Confirmed Last Taken Type AtorvaSTATin [Lipitor] 40 mg FEEDTUBE QHS 06/21/16 11/11/18 06/20/16 History Ascorbic Acid [Vitamin C] 500 mg FEEDTUBE QDAY 07/14/18 11/11/18 Unknown History Aspirin [Adult Aspirin Regimen] 81 mg FEEDTUBE DAILY 07/14/18 11/11/18 Unknown History Ipratropium/Albuterol Sulfate 1 ampul IH Q6HR 07/14/18 11/11/18 Unknown History [DUONEB *Not for PRN Use*] Multivitamin [Multiple Vitamins] 1 each FEEDTUBE DAILY 07/14/18 11/11/18 Unknown History Protein Supplement [Promod] 30 ml FEEDTUBE Q8H 07/14/18 11/11/18 Unknown History Acetaminophen [Tylenol] 650 mg FEEDTUBE Q4HR PRN 11/11/18 11/11/18 Unknown History Gabapentin [Neurontin] 300 mg FEEDTUBE BID 11/11/18 11/11/18 Unknown History L. Acidophilus/L.bulgaricus 1 each FEEDTUBE QAM 11/11/18 11/11/18 Unknown History [Lactobacillus Tablet] Omeprazole 20 mg FEEDTUBE QAM 11/11/18 11/11/18 Unknown History Potassium Chloride 20 meq FEEDTUBE QDAY 11/11/18 11/11/18 Unknown History guaiFENesin DM [Robitussin Dm] 10 ml FEEDTUBE Q6HR PRN 11/11/18 11/11/18 Unknown History levoFLOXacin [Levaquin TAB] 500 mg FEEDTUBE QDAY 11/11/18 11/11/18 Unknown History Active Medications: Generic Name Dose Route Start Last Admin Trade Name Freq PRN Reason Stop Dose Admin Acetaminophen 650 mg 11/11/18 16:44 Tylenol FEEDTUBE Q4H PRN Pain, Mild (1-3) Albuterol 2.5 mg 11/11/18 15:42 Proventil IH Q3HRT PRN Shortness Of Breath Albuterol/Ipratropium 1 ampul 11/12/18 16:00 11/15/18 01:29 Duoneb *Not For Prn Use* IH Not Given Q8HRT SHIRA Lipase/Protease/Amylase 1 each 11/12/18 14:[address] 10,500 Unit FEEDTUBE PRN PRN For Clogged Feeding Tube Ascorbic Acid 500 mg 11/12/18 10:00 11/14/18 10:39 Vitamin C FEEDTUBE 500 mg QDAY SHIRA Administration Atorvastatin Calcium 40 mg 11/11/18 22:00 11/14/18 21:45 Lipitor FEEDTUBE 40 mg QHS SHIRA Administration Gabapentin 300 mg 11/12/18 22:00 11/14/18 21:45 Neurontin PO 300 mg QHS SHIRA Administration Guaifenesin 10 ml 11/11/18 15:53 Guaifenesin Dm Syrup FEEDTUBE Q6HR PRN Cough Heparin Sodium (Porcine) 5,000 unit 11/12/18 14:00 11/14/18 21:45 Heparin SUB-Q 5,000 unit Q12HR SHIRA Administration Hydrophilic Ointment 1 applic 11/11/18 16:03 Vaseline Lip Therapy TP Q2HR PRN Dry Lips Cefepime HCl 2 gm in 100 mls @ 200 mls/hr 11/11/18 22:00 11/14/18 21:44 Maxipime/Ns 2 Gm/100 Ml IV 200 mls/hr Q12HR SHIRA Administration Protocol Midazolam HCl 100 mg/ Sodium 100 mls @ 2 mls/hr 11/11/18 17:00 Chloride IV TITR SHIRA Protocol 2 MG/HR Norepinephrine 4 mg in 250 mls @ 7.5 mls/hr 11/11/18 16:36 11/15/18 01:22 Levophed Drip 4 Mg/Ns 250 Ml IV 2 mcg/min TITR SHIRA 7.5 mls/hr Administration Protocol 2 MCG/MIN Fentanyl Citrate 2,000 mcg in 100 mls @ 2.722 mls/hr 11/11/18 20:00 Fentanyl Drip Premix IV TITR SHIRA Protocol 1 MCG/KG/HR Sodium Chloride 1,000 mls @ 10 mls/hr 11/12/18 15:00 11/12/18 15:06 Nacl 0.9% 1000 Ml IV 10 mls/hr DIRECT SHIRA Administration Sodium Chloride 1,000 mls @ 75 mls/hr 11/13/18 22:00 11/14/18 12:46 Nacl 0.45% 1000 Ml IV 11/15/18 11:19 75 mls/hr DIRECT SHIRA Administration Linezolid 600 mg in 300 mls @ 300 mls/hr 11/14/18 12:00 11/15/18 00:04 Zyvox 600mg/300ml IV 300 mls/hr Q12H SHIRA Administration Protocol Sodium Chloride 1,000 mls @ 75 mls/hr 11/14/18 16:00 11/15/18 00:23 Nacl 0.45% 1000 Ml IV 75 mls/hr DIRECT SHIRA Administration Insulin Human Lispro 0 unit 11/12/18 14:00 11/15/18 06:32 Humalog SUB-Q 3 unit Q6HR SHIRA Administration Protocol Lactobacillus Acidophilus 1 each 11/12/18 10:00 11/14/18 10:39 Floranex PO 1 each QAM SHIRA Administration Lansoprazole 30 mg 11/12/18 10:00 11/14/18 10:39 Prevacid Solutab FEEDTUBE 30 mg QDAY SHIRA Administration Methylprednisolone Sodium Succinate 60 mg 11/12/18 14:00 11/15/18 05:05 Solu-Medrol IV 60 mg Q8HR SHIRA Administration Midazolam HCl 2 mg 11/11/18 16:03 11/11/18 23:27 Versed IV 2 mg Q10MIN PRN Administration Sedation Multi-Ingred Cream/Lotion/Oil/Oint 1 applic 11/11/18 16:03 Artificial Tears Ophth Oint OU Q4HR PRN Dry Eye(s) Multivitamins 5 ml 11/12/18 10:00 11/14/18 10:39 Centrum Liq PO 5 ml QDAY SHIRA Administration Potassium Chloride 20 meq 11/12/18 10:00 11/14/18 10:39 Potassium Chloride FEEDTUBE 20 meq QDAY SHIRA Administration Simple Syrup 15 ml 11/12/18 14:42 Simple Syrup FEEDTUBE PRN PRN Hypoglycemia Simple Syrup 30 ml 11/12/18 14:42 Simple Syrup FEEDTUBE PRN PRN Hypoglycemia Sodium Bicarbonate 325 mg 11/12/18 14:42 Sodium Bicarbonate FEEDTUBE PRN PRN For Clogged Feeding Tube Sodium Chloride 10 ml 11/11/18 22:00 11/14/18 21:46 Sodium Chloride Flush Syringe 10 Ml IV 10 ml BID SHIRA Administration Sodium Chloride 10 ml 11/11/18 15:42 11/14/18 13:49 Sodium Chloride Flush Syringe 10 Ml IV 10 ml PRN PRN Administration LINE FLUSH
--- NOTE | 2018-11-15 09:22 | Progress Note ---
Assessment and Plan Cultures: Blood culture 11/11/2018 no growth. Urine culture 11/11/2018 no growth. Tracheal asp 11/11/2018 VISA (VANCOMYCIN INTERMEDIATE STAPH AUREUS). Assessment: 58 y/o male with history of HTN, DM, COPD, CVA with aphasia and right-sided hemiparesis, contracture, dysphagia s/p G tube placement; admitted on 11/11/2018 from the assisted due to AMS/confusion/unresponsiveness: 1) Severe Sepsis with septic shock: off pressors x 24h, no fever for 48h. Etiology most likely multifactorial - complicated UTI +/- pneumonia. CRP 13. Blood culture neg. 2) Complicated UTI: patient with hsitory of recurrrent UTI. Reviewed of micro records noted urine culture in January 2015 with MDR Pseudomonas sensitive to cefepime and zosyn, resistant to imipenem and quinolones. UA with wbc 182, LE la rge. CT scan of the abdomen diffusely irregular wall thickening with bilateral hydronephrosis and bilateral nonobstructive renal stones. There was also masslike area in the left superior bladder wall, also noted moderate bilateral hydroureteronephrosis without obstructing ureteral calculus. Slade placed this admission. 3) Pneumonia/HAP: CXR showed RML atelectasis, repeat CXR showed bilateral pulm onary vascular congestion. CT abd showed right lower lobe consolidation concerning for pneumonia. Right middle lobe opacities also concerning for pneumonia versus aspiration. Tracheal asp 11/11/2018 VISA (VANCOMYCIN INTERMEDIATE STAPH AUREUS). 4) Respiratory failure: still intubated. Recommendations: - recommended conservative management/slade placed - will ask duration - Strict contact isolation due to VISA and history of MDR Pseudomonas - continue zyvox 600 mg IV q12h to cover VISA pneumonia D2 of 10 - continue cefepime for now D5 of 7 for UTI - at some point he will require cystocopy to eval bladder mass - aspiration precautions Overall prognosis is poor, please discuss with family palliative care Will follow. Brianna Yousif MD Infectious Diseases Supervisor Pressing Department [facility] ([facility] M [phone] O [phone] Subjective Date of service: 11/15/18 Principal diagnosis: Acute Hypoxemic Resp Failure; Severe sepsis with shock; UTI; BETHEL Interval history: Remains on the vent, intubated, no fever for 48h. Alert no follows commands. ROS: unable to obtain Objective - Exam Narrative Exam: General appearance: more alert in NAD intubated on the vent on AC Eyes: anicteric sclerae, moist conjunctivae; no lid-lag; PERRLA HENT: Atraumatic; oropharynx +ETT Neck: Trachea midline; supple, no thyromegaly or lymphadenopathy Lungs: dina rhonchi CV: RRR, no murmurs Abdomen: Soft, non-tender; +PEG Extremities: + left arm edema + RUE contraction Skin: Normal temperature, turgor and texture; no rash, ulcers or subcutaneous nodules Psych: alert no follows commands Neuro: alert no agitated R IJ TLC - Constitutional Vitals: Vital Signs Temp Pulse Resp BP Pulse Ox 98.8 F 88 15 99/54 97 11/15/18 04:00 11/15/18 09:00 11/15/18 09:00 11/15/18 09:00 11/15/18 09:00 Temperature -Last 24 Hours Temperature 98.8 F Temperature 99.1 F Temperature 99.3 F Temperature 98.4 F Temperature 98.1 F - Labs CBC & Chem 7: 11/14/18 05:30 11/14/18 05:30 Labs: Abnormal lab results 11/14/18 11/14/18 11/14/18 Range/Units 05:30 11:36 17:52 Seg Neuts % (Manual) 89.0 H (40.0-70.0) % Lymphocytes % (Manual) 3.0 L (13.4-35.0) % Lymphocytes # (Manual) 0.2 L (1.2-5.4) K/mm3 POC Glucose 277 H 257 H (70-105) 11/14/18 11/15/18 Range/Units 23:48 05:20 Seg Neuts % (Manual) (40.0-70.0) % Lymphocytes % (Manual) (13.4-35.0) % Lymphocytes # (Manual) (1.2-5.4) K/mm3 POC Glucose 243 H 250 H (70-105)
[2018-11-15] MEDS: PREVACID SOLUTAB FEEDTUBE SCH (10:01)
[2018-11-15] MEDS: Centrum Liq PO SCH (10:01)
[2018-11-15] MEDS: FLORANEX PO SCH (10:01)
[2018-11-15] MEDS: POTASSIUM CHLORIDE FEEDTUBE SCH (10:01)
[2018-11-15] MEDS: VITAMIN C FEEDTUBE SCH (10:01)
[2018-11-15] MEDS: HEPARIN SUB-Q SCH ×2 (10:01→22:11)
[2018-11-15] MEDS: MAXIPIME/NS 2 GM/100 ML 2 GM/100 ML BAG IV SCH ×2 (10:02→22:07)
[2018-11-15] MEDS: SODIUM CHLORIDE FLUSH SYRINGE 10 ML IV SCH ×2 (10:06→22:13)
[2018-11-15 10:28] LABS: BUN/Creatinine Ratio 60; Blood Urea Nitrogen 30 mg/dL (9-20); Calcium 7.8 mg/dL (8.4-10.2); Hemolysis Index 6
[2018-11-15] MEDS ORDERED: PANCREAZE DR 10,500 UNIT FEEDTUBE PRN (12:05)
[2018-11-15] MEDS ORDERED: SODIUM BICARBONATE FEEDTUBE PRN (12:05)
[2018-11-15] MEDS ORDERED: SIMPLE SYRUP FEEDTUBE PRN ×2 (12:05)
[2018-11-15] MEDS: LANTUS SUB-Q SCH (13:15)
--- NOTE | 2018-11-15 15:20 | Progress Note ---
Assessment and Plan Acute hypoxemic respiratory failure, on mechanical ventilatory support. Acute on chronic encephalopathy. Severe sepsis with shock, presumably due to UTI Urinary tract infection. Acute kidney injury. Likely bladder outlet obstruction. Bilateral hydronephrosis. Nephrolithiasis. History of diabetes. Hypertension. Chronic obstructive lung disease. Prior cerebrovascular accident with left hemiparesis. Oropharyngeal dysphagia. Metabolic acidosis. Hyponatremia, moderate. Adult failure to thrive. - extubate - aspiration precautions - complete IV 0.45 NS at 75 mls/hr X 2 more liters - continue to wean levophed for MAP > 65 mmHg (on 2 mics/min) - continue bronchodilators with pulmonary hygiene per RT - nephrology evaluation ongoing - continue slade catheter and follow urologist recommendations - continue enteral nutrition as tolerated - PT/OT/ROM exercises as tolerated - mobility protocol for pressure ulcer prophylaxis - continue GI & VTE prophylaxis - continue other care per attending / other consultants ...... re-evaluate in am & prn The high probability of a clinically significant, sudden or life threatening deterioration of the [cardiac, respiratory and neurologic] system(s) required my full and direct attention, intervention and personal management. The aggregate critical care time was [32] minutes. This time is in addition to time spent performing reported procedures but includes the following: [x] Data Review and interpretation [x] Patient assessment and monitoring of vital signs [x] Documentation [x] Medication orders and management Subjective Date of service: 11/15/18 Principal diagnosis: Acute Hypoxemic Resp Failure; Severe sepsis with shock; UTI; BETHEL Interval history: Patient is seen today for: Acute hypoxemic respiratory failure on mechanical ventilatory support; Acute on chronic encephalopathy; Severe sepsis with shock, presumably due to UTI; Urinary tract infection; Acute kidney injury. Seen and examined at bedside; 24hour events reviewed; nursing and respiratory care staff consulted; no adverse overnight events reported to me; resting peacefully in bed; tolerating SBT very well; no emesis or overt aspiration; alert but likely dementia element and not following prompt's; no seizures Objective Vital Signs - 12hr 11/15/18 11/15/18 11/15/18 03:30 03:45 04:00 Temperature 98.8 F Pulse Rate 55 L 55 L 53 L Pulse Rate [ Anterior Bilateral Throughout] Pulse Rate [ 68 From Monitor] Respiratory 13 14 16 Rate Respiratory Rate [Anterior Bilateral Throughout] Blood Pressure 82/50 79/47 97/46 O2 Sat by Pulse 99 99 100 Oximetry 11/15/18 11/15/18 11/15/18 04:04 04:15 04:31 Temperature Pulse Rate 60 61 65 Pulse Rate [ Anterior Bilateral Throughout] Pulse Rate [ From Monitor] Respiratory 16 19 Rate Respiratory Rate [Anterior Bilateral Throughout] Blood Pressure 105/71 105/71 43/26 O2 Sat by Pulse 99 99 94 Oximetry 11/15/18 11/15/18 11/15/18 04:45 05:00 05:15 Temperature Pulse Rate 60 68 75 Pulse Rate [ Anterior Bilateral Throughout] Pulse Rate [ From Monitor] Respiratory 15 15 16 Rate Respiratory Rate [Anterior Bilateral Throughout] Blood Pressure 43/26 107/61 98/60 O2 Sat by Pulse 99 99 Oximetry 11/15/18 11/15/18 11/15/18 05:30 05:45 06:01 Temperature Pulse Rate 73 55 L 52 L Pulse Rate [ Anterior Bilateral Throughout] Pulse Rate [ From Monitor] Respiratory 17 17 11 L Rate Respiratory Rate [Anterior Bilateral Throughout] Blood Pressure 98/63 86/36 82/45 O2 Sat by Pulse 100 100 Oximetry 11/15/18 11/15/18 11/15/18 06:15 06:31 06:45 Temperature Pulse Rate 44 L 44 L 50 L Pulse Rate [ Anterior Bilateral Throughout] Pulse Rate [ From Monitor] Respiratory 12 13 14 Rate Respiratory Rate [Anterior Bilateral Throughout] Blood Pressure 82/45 106/61 111/63 O2 Sat by Pulse 99 100 100 Oximetry 11/15/18 11/15/18 11/15/18 07:00 07:15 07:30 Temperature Pulse Rate 52 L 64 75 Pulse Rate [ Anterior Bilateral Throughout] Pulse Rate [ From Monitor] Respiratory 13 17 18 Rate Respiratory Rate [Anterior Bilateral Throughout] Blood Pressure 111/63 95/63 98/63 O2 Sat by Pulse 100 100 100 Oximetry 11/15/18 11/15/18 11/15/18 07:45 08:00 08:15 Temperature 97.7 F Pulse Rate 76 74 81 Pulse Rate [ Anterior Bilateral Throughout] Pulse Rate [ 78 From Monitor] Respiratory 18 14 14 Rate Respiratory Rate [Anterior Bilateral Throughout] Blood Pressure 94/61 87/55 87/55 O2 Sat by Pulse 99 98 98 Oximetry 11/15/18 11/15/18 11/15/18 08:16 08:19 08:21 Temperature Pulse Rate 76 75 Pulse Rate [ 76 Anterior Bilateral Throughout] Pulse Rate [ From Monitor] Respiratory 17 Rate Respiratory 18 Rate [Anterior Bilateral Throughout] Blood Pressure 102/69 102/69 O2 Sat by Pulse 97 98 Oximetry 11/15/18 11/15/18 11/15/18 08:30 08:35 08:45 Temperature Pulse Rate 78 82 Pulse Rate [ 81 Anterior Bilateral Throughout] Pulse Rate [ From Monitor] Respiratory 17 15 Rate Respiratory 16 Rate [Anterior Bilateral Throughout] Blood Pressure 97/61 94/56 O2 Sat by Pulse 100 100 Oximetry 11/15/18 11/15/18 11/15/18 09:00 09:15 09:30 Temperature Pulse Rate 88 82 82 Pulse Rate [ Anterior Bilateral Throughout] Pulse Rate [ From Monitor] Respiratory 15 15 15 Rate Respiratory Rate [Anterior Bilateral Throughout] Blood Pressure 99/54 90/54 96/57 O2 Sat by Pulse 97 98 98 Oximetry 11/15/18 11/15/18 11/15/18 09:45 10:00 10:15 Temperature Pulse Rate 81 79 82 Pulse Rate [ Anterior Bilateral Throughout] Pulse Rate [ From Monitor] Respiratory 14 16 15 Rate Respiratory Rate [Anterior Bilateral Throughout] Blood Pressure 86/55 84/54 90/57 O2 Sat by Pulse 97 97 97 Oximetry 11/15/18 11/15/18 11/15/18 10:30 10:45 11:00 Temperature Pulse Rate 71 57 L 66 Pulse Rate [ Anterior Bilateral Throughout] Pulse Rate [ From Monitor] Respiratory 16 16 17 Rate Respiratory Rate [Anterior Bilateral Throughout] Blood Pressure 97/58 94/56 104/62 O2 Sat by Pulse 98 98 98 Oximetry 11/15/18 14:23 Temperature Pulse Rate 77 Pulse Rate [ Anterior Bilateral Throughout] Pulse Rate [ From Monitor] Respiratory 17 Rate Respiratory Rate [Anterior Bilateral Throughout] Blood Pressure 106/70 O2 Sat by Pulse 99 Oximetry Constitutional: appears uncomfortable, other (elderly, chronically ill looking CM, normocephalic and atraumatic with increased respiratory effort at rest) Eyes: non-icteric ENT: oropharynx moist, other (ETT 24 cm AMA) Neck: supple, no lymphadenopathy, no JVD, other (no thyromegaly) Effort: mildly labored Ascultation: Bilateral: diminished breath sounds, rhonchi Percussion: Bilateral: not dull Cardiovascular: regular rate and rhythm Gastrointestinal: normoactive bowel sounds, soft, non-tender, non-distended Integumentary: rash, other (poor turgor; decubitus ulcer) Extremities: no edema, pink and warm, pulses normal, other (? early digital gangrene) Neurologic: non-focal exam, unable to assess Psychiatric: other (unable to assess) CBC and BMP: 11/14/18 05:30 11/15/18 09:55 ABG, PT/INR, D-dimer: ABG POC ABG pH 7.339 (7.35-7.45) L 11/15/18 14:26 POC ABG pCO2 35.6 (35-45) 11/15/18 14:26 POC ABG pO2 102 (80-105) 11/15/18 14:26 POC ABG HCO3 19.1 11/15/18 14:26 POC ABG Total CO2 20 11/15/18 14:26 POC ABG O2 Sat 98 11/15/18 14:26 PT/INR, D-dimer D-Dimer 2061.41 ng/mlDDU (0-234) H 11/11/18 20:41 Abnormal lab findings: Abnormal Labs 11/11/18 11/11/18 11/11/18 09:55 09:55 10:22 WBC RBC Hgb Hct MCHC 35 H Plt Count Lymph % (Auto) 2.9 L [place] % (Auto) 9.8 H Lymph # 0.3 L [place] # 1.0 H Seg Neutrophils % 87.0 H Seg Neuts % (Manual) Lymphocytes % (Manual) Seg Neutrophils # 8.7 H Seg Neutrophils # Man Lymphocytes # (Manual) D-Dimer POC ABG pH POC ABG pCO2 POC ABG pO2 Sodium 129 L Chloride 95.5 L Carbon Dioxide 18 L BUN 155 H Creatinine 3.1 H Glucose 196 H POC Glucose Calcium Phosphorus C-Reactive Protein Total Protein Albumin 2.4 L Urine pH 8.0 H Urine WBC (Auto) > 182.0 H 11/11/18 11/11/18 11/11/18 12:04 18:36 20:41 WBC RBC Hgb Hct MCHC Plt Count Lymph % (Auto) [place] % (Auto) Lymph # [place] # Seg Neutrophils % Seg Neuts % (Manual) Lymphocytes % (Manual) Seg Neutrophils # Seg Neutrophils # Man Lymphocytes # (Manual) D-Dimer POC ABG pH 7.335 L 7.256 L POC ABG pCO2 34.8 L POC ABG pO2 55 L 74 L Sodium Chloride Carbon Dioxide BUN Creatinine Glucose POC Glucose Calcium Phosphorus C-Reactive Protein 13.70 H Total Protein Albumin Urine pH Urine WBC (Auto) 11/11/18 11/11/18 11/12/18 20:41 21:37 04:20 WBC RBC Hgb Hct MCHC Plt Count Lymph % (Auto) [place] % (Auto) Lymph # [place] # Seg Neutrophils % Seg Neuts % (Manual) Lymphocytes % (Manual) Seg Neutrophils # Seg Neutrophils # Man Lymphocytes # (Manual) D-Dimer 2061.41 H POC ABG pH 7.328 L POC ABG pCO2 32.9 L 27.6 L POC ABG pO2 170 H Sodium Chloride Carbon Dioxide BUN Creatinine Glucose POC Glucose Calcium Phosphorus C-Reactive Protein Total Protein Albumin Urine pH Urine WBC (Auto) 11/12/18 11/12/18 11/12/18 05:14 06:30 06:30 WBC 15.3 H RBC Hgb Hct 34.9 L MCHC Plt Count Lymph % (Auto) [place] % (Auto) Lymph # [place] # Seg Neutrophils % Seg Neuts % (Manual) 94.0 H Lymphocytes % (Manual) 1.0 L Seg Neutrophils # 13.7 H Seg Neutrophils # Man 14.4 H Lymphocytes # (Manual) 0.2 L D-Dimer POC ABG pH POC ABG pCO2 POC ABG pO2 Sodium Chloride 113.2 H Carbon Dioxide 19 L BUN 93 H Creatinine Glucose 182 H POC Glucose 176 H Calcium 7.9 L Phosphorus C-Reactive Protein Total Protein 5.2 L Albumin 2.0 L Urine pH Urine WBC (Auto) 11/12/18 11/12/18 11/13/18 12:23 18:20 00:17 WBC RBC Hgb Hct MCHC Plt Count Lymph % (Auto) [place] % (Auto) Lymph # [place] # Seg Neutrophils % Seg Neuts % (Manual) Lymphocytes % (Manual) Seg Neutrophils # Seg Neutrophils # Man Lymphocytes # (Manual) D-Dimer POC ABG pH POC ABG pCO2 POC ABG pO2 Sodium Chloride Carbon Dioxide BUN Creatinine Glucose POC Glucose 201 H 218 H 222 H Calcium Phosphorus C-Reactive Protein Total Protein Albumin Urine pH Urine WBC (Auto) 11/13/18 11/13/18 11/13/18 04:41 04:53 05:20 WBC RBC 3.62 L Hgb 11.3 L Hct 32.8 L MCHC Plt Count Lymph % (Auto) [place] % (Auto) Lymph # [place] # Seg Neutrophils % Seg Neuts % (Manual) 90.0 H Lymphocytes % (Manual) 5.0 L Seg Neutrophils # Seg Neutrophils # Man 8.8 H Lymphocytes # (Manual) 0.5 L D-Dimer POC ABG pH POC ABG pCO2 31.0 L POC ABG pO2 Sodium Chloride Carbon Dioxide BUN Creatinine Glucose POC Glucose 238 H Calcium Phosphorus C-Reactive Protein Total Protein Albumin Urine pH Urine WBC (Auto) 11/13/18 11/13/18 11/13/18 05:20 11:58 17:47 WBC RBC Hgb Hct MCHC Plt Count Lymph % (Auto) [place] % (Auto) Lymph # [place] # Seg Neutrophils % Seg Neuts % (Manual) Lymphocytes % (Manual) Seg Neutrophils # Seg Neutrophils # Man Lymphocytes # (Manual) D-Dimer POC ABG pH POC ABG pCO2 POC ABG pO2 Sodium 149 H Chloride 120.8 H Carbon Dioxide 18 L BUN 52 H Creatinine 0.7 L Glucose 247 H POC Glucose 306 H 217 H Calcium 7.8 L Phosphorus 1.90 L C-Reactive Protein Total Protein Albumin Urine pH Urine WBC (Auto) 11/13/18 11/14/18 11/14/18 23:05 04:24 05:30 WBC RBC Hgb Hct MCHC Plt Count Lymph % (Auto) [place] % (Auto) Lymph # [place] # Seg Neutrophils % Seg Neuts % (Manual) Lymphocytes % (Manual) Seg Neutrophils # Seg Neutrophils # Man Lymphocytes # (Manual) D-Dimer POC ABG pH 7.294 L POC ABG pCO2 POC ABG pO2 Sodium 150 H Chloride 121.3 H Carbon Dioxide BUN 40 H Creatinine 0.6 L Glucose 241 H POC Glucose 207 H Calcium 7.9 L Phosphorus C-Reactive Protein Total Protein Albumin Urine pH Urine WBC (Auto) 11/14/18 11/14/18 11/14/18 05:30 05:32 11:36 WBC RBC 3.22 L Hgb 10.0 L Hct 29.7 L MCHC Plt Count 137 L Lymph % (Auto) [place] % (Auto) Lymph # [place] # Seg Neutrophils % Seg Neuts % (Manual) 89.0 H Lymphocytes % (Manual) 3.0 L Seg Neutrophils # Seg Neutrophils # Man Lymphocytes # (Manual) 0.2 L D-Dimer POC ABG pH POC ABG pCO2 POC ABG pO2 Sodium Chloride Carbon Dioxide BUN Creatinine Glucose POC Glucose 235 H 277 H Calcium Phosphorus C-Reactive Protein Total Protein Albumin Urine pH Urine WBC (Auto) 11/14/18 11/14/18 11/15/18 17:52 23:48 05:20 WBC RBC Hgb Hct MCHC Plt Count Lymph % (Auto) [place] % (Auto) Lymph # [place] # Seg Neutrophils % Seg Neuts % (Manual) Lymphocytes % (Manual) Seg Neutrophils # Seg Neutrophils # Man Lymphocytes # (Manual) D-Dimer POC ABG pH POC ABG pCO2 POC ABG pO2 Sodium Chloride Carbon Dioxide BUN Creatinine Glucose POC Glucose 257 H 243 H 250 H Calcium Phosphorus C-Reactive Protein Total Protein Albumin Urine pH Urine WBC (Auto) 11/15/18 11/15/18 11/15/18 09:55 12:51 14:26 WBC RBC Hgb Hct MCHC Plt Count Lymph % (Auto) [place] % (Auto) Lymph # [place] # Seg Neutrophils % Seg Neuts % (Manual) Lymphocytes % (Manual) Seg Neutrophils # Seg Neutrophils # Man Lymphocytes # (Manual) D-Dimer POC ABG pH 7.339 L POC ABG pCO2 POC ABG pO2 Sodium Chloride 111.5 H Carbon Dioxide BUN 30 H Creatinine 0.5 L Glucose 239 H POC Glucose 254 H Calcium 7.8 L Phosphorus C-Reactive Protein Total Protein Albumin Urine pH Urine WBC (Auto) Allied health notes reviewed: nursing
--- NOTE | 2018-11-15 18:42 | Progress Note ---
Assessment and Plan Assessment and plan: Severe Sepsis with shock. F/U Blood cx. sec UTI/PNA. Cont. Iv abx. Wean pressors to maintain MAP>65. Etiology secondary to UTI/PNA. ID following Acute hypoxemic resp failure. Cont. per Pulm. Etiology sec RLL PNA. However, elevated d-dimer--consider PE but Doppler negative. CTA chest when he modynamically stable. Check Echo. UTi. Cont IV abx. F/U cx. CTAP (11-11-18) bilat hydro (no obstructing stone), bladder mass,Cystitis. Urology following and recommends conservative management. Toxic metabolic encephalopathy ARF. Etiology likely secondary to BETHEL secondary to atn/sepsis RLL Pneumonia. Cont Abx. Tracheal asp 11/11/2018 VISA (VANCOMYCIN INTERMEDIATE STAPH AUREUS). ID following The high probability of a clinically significant, sudden or life threatening deterioration of the [respiratory, hemodynamic] system(s) required my full and direct attention, intervention and personal management. The aggregate critical care time was [32] minutes. 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 Pt is stuporous and unable to provide history. History taken from SNF staff. As per SNF staff, the patient was found to be confused and nonresponsive. Pt seen and found to have Sepsis secondary to UTI, Acute Renal Failure, Acute Hypoxemic Respiratory Failure. Pt admitted to ICU and initiated on sepsis protocol. History Interval history: Patient was seen and evaluated this morning, patient was alert but cannot communicate because he is intubated. Hospitalist Physical - Physical exam Narrative exam: Patient is intubated and on, SBT. The patient appeared well nourished and normally developed. Vital signs as documented. Head exam is unremarkable. No scleral icterus . Neck is without jugular venous distension, thyromegaly, or carotid bruits. Lungs are clear to auscultation. Cardiac exam reveals regular rate and Rhythm. First and second heart sounds normal. No murmurs, rubs or gallops. Abdominal exam reveals normal bowel sounds, no masses, no organomegaly and no aortic enlargement. 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 - Constitutional Vitals: Temp Pulse Resp BP Pulse Ox 99.0 F 72 12 105/72 99 11/15/18 16:00 11/15/18 16:31 11/15/18 16:31 11/15/18 16:30 11/15/18 16:37 General appearance: Present: cachectic, other ([facility] Results - Labs CBC & Chem 7: 11/14/18 05:30 11/15/18 09:55 Labs: Laboratory Last Values WBC 7.3 K/mm3 (4.5-11.0) 11/14/18 05:30 RBC 3.22 M/mm3 (3.65-5.03) L 11/14/18 05:30 Hgb 10.0 gm/dl (11.8-15.2) L 11/14/18 05:30 Hct 29.7 % (35.5-45.6) L 11/14/18 05:30 MCV 92 fl (84-94) 11/14/18 05:30 MCH 31 pg (28-32) 11/14/18 05:30 MCHC 34 % (32-34) 11/14/18 05:30 RDW 14.3 % (13.2-15.2) 11/14/18 05:30 Plt Count 137 K/mm3 (140-440) L 11/14/18 05:30 Lymph % (Auto) 2.9 % (13.4-35.0) L 11/11/18 09:55 Carson % (Auto) 5.7 % (0.0-7.3) 11/12/18 06:30 Eos % (Auto) 0.0 % (0.0-4.3) 11/12/18 06:30 Baso % (Auto) 0.3 % (0.0-1.8) 11/11/18 09:55 Lymph # 0.3 K/mm3 (1.2-5.4) L 11/11/18 09:55 Carson # 0.8 K/mm3 (0.0-0.8) 11/12/18 06:30 Eos # 0.0 K/mm3 (0.0-0.4) 11/12/18 06:30 Baso # 0.0 K/mm3 (0.0-0.1) 11/12/18 06:30 Add Manual Diff Complete 11/14/18 05:30 Total Counted 100 11/14/18 05:30 Seg Neutrophils % Stereo Compiler 11/14/18 05:30 Seg Neuts % (Manual) 89.0 % (40.0-70.0) H 11/14/18 05:30 Band Neutrophils % 2.0 % 11/14/18 05:30 Lymphocytes % (Manual) 3.0 % (13.4-35.0) L 11/14/18 05:30 Reactive Lymphs % (Man) 0 % 11/14/18 05:30 Monocytes % (Manual) 5.0 % (0.0-7.3) 11/14/18 05:30 Eosinophils % (Manual) 0 % (0.0-4.3) 11/14/18 05:30 Basophils % (Manual) 0 % (0.0-1.8) 11/14/18 05:30 Metamyelocytes % 1.0 % 11/14/18 05:30 Myelocytes % 0 % 11/14/18 05:30 Promyelocytes % 0 % 11/14/18 05:30 Blast Cells % 0 % 11/14/18 05:30 Nucleated RBC % Not Reportable 11/14/18 05:30 Seg Neutrophils # 13.7 K/mm3 (1.8-7.7) H 11/12/18 06:30 Seg Neutrophils # Man 6.5 K/mm3 (1.8-7.7) 11/14/18 05:30 Band Neutrophils # 0.1 K/mm3 11/14/18 05:30 Lymphocytes # (Manual) 0.2 K/mm3 (1.2-5.4) L 11/14/18 05:30 Abs React Lymphs (Man) 0.0 K/mm3 11/14/18 05:30 Monocytes # (Manual) 0.4 K/mm3 (0.0-0.8) 11/14/18 05:30 Eosinophils # (Manual) 0.0 K/mm3 (0.0-0.4) 11/14/18 05:30 Basophils # (Manual) 0.0 K/mm3 (0.0-0.1) 11/14/18 05:30 Metamyelocytes # 0.1 K/mm3 11/14/18 05:30 Myelocytes # 0.0 K/mm3 11/14/18 05:30 Promyelocytes # 0.0 K/mm3 11/14/18 05:30 Blast Cells # 0.0 K/mm3 11/14/18 05:30 WBC Morphology Not Reportable 11/14/18 05:30 Hypersegmented Neuts Not Reportable 11/14/18 05:30 Hyposegmented Neuts Not Reportable 11/14/18 05:30 Hypogranular Neuts Not Reportable 11/14/18 05:30 Smudge Cells Not Reportable 11/14/18 05:30 Toxic Granulation Not Reportable 11/14/18 05:30 Toxic Vacuolation Not Reportable 11/14/18 05:30 Dohle Bodies Not Reportable 11/14/18 05:30 Pelger-Huet Anomaly Not Reportable 11/14/18 05:30 Meghan Rods Not Reportable 11/14/18 05:30 Platelet Estimate Consistent w auto 11/14/18 05:30 Clumped Platelets Not Reportable 11/14/18 05:30 Plt Clumps, EDTA Not Reportable 11/14/18 05:30 Large Platelets Not Reportable 11/14/18 05:30 Giant Platelets Not Reportable 11/14/18 05:30 Platelet Satelliting Not Reportable 11/14/18 05:30 Plt Morphology Comment Not Reportable 11/14/18 05:30 RBC Morphology Not Reportable 11/14/18 05:30 Dimorphic RBCs Not Reportable 11/14/18 05:30 Polychromasia Not Reportable 11/14/18 05:30 Hypochromasia 1+ 11/14/18 05:30 Poikilocytosis Not Reportable 11/14/18 05:30 Anisocytosis Few 11/14/18 05:30 Microcytosis Not Reportable 11/14/18 05:30 Macrocytosis Not Reportable 11/14/18 05:30 Spherocytes Not Reportable 11/14/18 05:30 Pappenheimer Bodies Not Reportable 11/14/18 05:30 Sickle Cells Not Reportable 11/14/18 05:30 Target Cells Not Reportable 11/14/18 05:30 Tear Drop Cells Not Reportable 11/14/18 05:30 Ovalocytes Not Reportable 11/14/18 05:30 Helmet Cells Not Reportable 11/14/18 05:30 [place] Bodies Not Reportable 11/14/18 05:30 [place] Rings Not Reportable 11/14/18 05:30 Constantino Cells Not Reportable 11/14/18 05:30 Bite Cells Not Reportable 11/14/18 05:30 Crenated Cell Not Reportable 11/14/18 05:30 Elliptocytes Not Reportable 11/14/18 05:30 Acanthocytes (Spur) Not Reportable 11/14/18 05:30 Rouleaux Not Reportable 11/14/18 05:30 Hemoglobin C Crystals Not Reportable 11/14/18 05:30 Schistocytes Not Reportable 11/14/18 05:30 Malaria parasites Not Reportable 11/14/18 05:30 Alton Bodies Not Reportable 11/14/18 05:30 Hem Pathologist Commnt No 11/14/18 05:30 D-Dimer 2061.41 ng/mlDDU (0-234) H 11/11/18 20:41 POC ABG pH 7.339 (7.35-7.45) L 11/15/18 14:26 POC ABG pCO2 35.6 (35-45) 11/15/18 14:26 POC ABG pO2 102 (80-105) 11/15/18 14:26 POC ABG HCO3 19.1 11/15/18 14:26 POC ABG Total CO2 20 11/15/18 14:26 POC ABG O2 Sat 98 11/15/18 14:26 POC ABG Base Excess -7 11/15/18 14:26 VBG pH 7.343 (7.320-7.420) 11/11/18 15:04 FiO2 30 % 11/15/18 14:26 Sodium 143 mmol/L (137-145) 11/15/18 09:55 Potassium 3.6 mmol/L (3.6-5.0) 11/15/18 09:55 Chloride 111.5 mmol/L (98-107) H 11/15/18 09:55 Carbon Dioxide 22 mmol/L (22-30) 11/15/18 09:55 Anion Gap 13 mmol/L 11/15/18 09:55 BUN 30 mg/dL (9-20) H 11/15/18 09:55 Creatinine 0.5 mg/dL (0.8-1.5) L 11/15/18 09:55 Estimated GFR > 60 ml/min 11/15/18 09:55 BUN/Creatinine Ratio 60 % 11/15/18 09:55 Glucose 239 mg/dL (75-100) H 11/15/18 09:55 POC Glucose 179 (70-105) H 11/15/18 17:49 Lactic Acid 1.10 mmol/L (0.7-2.0) 11/11/18 23:19 Calcium 7.8 mg/dL (8.4-10.2) L 11/15/18 09:55 Phosphorus 2.50 mg/dL (2.5-4.5) D 11/14/18 05:30 Magnesium 2.10 mg/dL (1.7-2.3) 11/13/18 05:20 Total Bilirubin 0.40 mg/dL (0.1-1.2) 11/12/18 06:30 AST 17 units/L (5-40) 11/12/18 06:30 ALT 11 units/L (7-56) 11/12/18 06:30 Alkaline Phosphatase 72 units/L (35-129) 11/12/18 06:30 C-Reactive Protein 13.70 mg/dL (0.00-1.30) H 11/11/18 20:41 Total Protein 5.2 g/dL (6.3-8.2) L 11/12/18 06:30 Albumin 2.0 g/dL (3.9-5) L 11/12/18 06:30 Albumin/Globulin Ratio 0.6 % 11/12/18 06:30 TSH 0.900 mlU/mL (0.270-4.200) 11/11/18 09:55 Urine Color Marilia (Yellow) 11/11/18 10:22 Urine Turbidity Turbid (Clear) 11/11/18 10:22 Urine pH 8.0 (5.0-7.0) H 11/11/18 10:22 Ur Specific [place] 1.011 (1.003-1.030) 11/11/18 10:22 Urine Protein 100 mg/dl mg/dL (Negative) 11/11/18 10:22 Urine Glucose (UA) Neg mg/dL (Negative) 11/11/18 10:22 Urine Ketones Neg mg/dL (Negative) 11/11/18 10:22 Urine Blood Sm (Negative) 11/11/18 10:22 Urine Nitrite Neg (Negative) 11/11/18 10:22 Urine Bilirubin Neg (Negative) 11/11/18 10:22 Urine Urobilinogen < 2.0 mg/dL (<2.0) 11/11/18 10:22 Ur Leukocyte Esterase Lg (Negative) 11/11/18 10:22 Urine WBC (Auto) > 182.0 /HPF (0.0-6.0) H 11/11/18 10:22 Urine RBC (Auto) 27.0 /HPF (0.0-6.0) 11/11/18 10:22 Urine Bacteria (Auto) 3+ /HPF (Negative) 11/11/18 10:22 Urine WBC Clumps 3+ /HPF 11/11/18 10:22 Urine Mucus Few /HPF 11/11/18 10:22 Plasma/Serum Alcohol < 0.01 % (0-0.07) 11/11/18 09:55 Nutrition/Malnutrition Assess - Dietary Evaluation Nutrition/Malnutrition Findings: Nutrition Notes Start: 11/12/18 09:27 Freq: Status: Active Protocol: Document 11/15/18 11:58 HENRIK (Rec: 11/15/18 12:05 [email or web address]) Nutrition Notes Initial or Follow up Reassessment Current Diagnosis Sepsis Respiratory Failure Other Pertinent Diagnosis UTI, Pneu, toxic metabolic encephalopathy, ARF Current Diet TF - Glucerna 1.2 at 55ml/hr Labs/Tests POC Glu >200 since last assessment Pertinent Medications Reviewed Height 5 ft 7 in Weight 77.6 kg [place] Body Weight (kg) 67.27 BMI 26.8 Weight change and time frame Current wt obtained from bed scale Subjective/Other Information TF infusing at goal rate; pt tolerating TF. He remains on vent support. Percent of energy/protein needs met: 85% energy and pro Burn Absent Trauma Absent #1 Nutrition Diagnosis Inadequate oral intake Diagnosis Progress(for reassessment Continues documentation) Is patient on ventilator? Yes Is Patient Ambulatory and/or Out of Bed No REE-([facility]-confined to bed) 1858.380 Calculation Used for Recommendations Titi Simms Additional Notes Pro needs 1.2-2g/k-155g/ day Fluid needs 1ml/kcal Nutrition Intervention Nutrition Support: Increase TF goal rate ( Glucerna 1.2) to 65ml/hr. Provide 100ml water flush q4h. Kcal 1,872 Protein (gm) 94 Fluid (mL) 1,256 Fiber (gm) 25 Goal #1 TF tolerance Goal #2 TF to meet 80-100% energy and pro needs Follow-Up By: 11/16/18 Additional Comments F/U: TF goal rate increase, BG labs
[2018-11-15] MEDS: NEURONTIN PO SCH (22:13)
[2018-11-16] MEDS: HumaLOG SUB-Q SCH ×5 (00:50→23:54)
[2018-11-16] MEDS: ZYVOX 600MG/300ML 600 MG/300 ML BAG IV SCH (02:00)
--- NOTE | 2018-11-16 02:40 | XRay Report ---
FINAL REPORT PROCEDURE: XR CHEST 1V AP TECHNIQUE: Chest radiograph anteroposterior view. CPT 01562 HISTORY: follow up respiratory failure COMPARISON: 11/15/2018 FINDINGS: Heart: Normal. Mediastinum/Vessels: Normal. Lungs/Pleural space: There is suboptimal inspiration. There are right lower lobe infiltrates similar to prior study. There is no pleural effusion or pneumothorax.. Bony thorax: No acute osseous abnormality. Life support devices: There is right internal jugular vein central venous catheter. The tip is in the superior vena cava.. IMPRESSION: Heart size is normal. There is suboptimal inspiration. There are right lower lobe infiltrates similar to prior study. There is no pleural effusion or pneumothorax.. There is right internal jugular vein central venous catheter. The tip is in the superior vena cava..
[2018-11-16] MEDS: FREE WATER PO SCH ×2 (06:30)
[2018-11-16] MEDS: SOLU-Medrol IV SCH ×3 (06:42→23:36)
--- NOTE | 2018-11-16 07:13 | Progress Note ---
Assessment and Plan - Patient Problems (1) ARF (acute renal failure) with tubular necrosis Current Visit: Yes Status: Acute Plan to address problem: Overall renal function is improved. Will monitor. (2) Altered mental status Current Visit: Yes Status: Acute Plan to address problem: Secondary to toxic/metabolic encephalopathy. (3) Hydronephrosis Current Visit: Yes Status: Acute Plan to address problem: slade placement with adequate urine output noted. (4) Hypernatremia Current Visit: Yes Status: Acute Plan to address problem: Hyponatremia is resolving at this time. We'll continue to monitor. (5) Sepsis Current Visit: Yes Status: Acute Qualifiers: Sepsis type: sepsis due to unspecified organism Qualified Code(s): A41.9 - Sepsis, unspecified organism Plan to address problem: Weaned off pressors, on antibiotics. ID on case and will appreciate further recommendations/input (6) Acute respiratory failure with hypoxemia Current Visit: No Status: Acute Plan to address problem: Intubated, management per pulmonology. (7) Hypophosphatemia Current Visit: Yes Status: Acute Plan to address problem: Replete per protocol. Subjective Date of service: 11/16/18 Principal diagnosis: Acute Hypoxemic Resp Failure; Severe sepsis with shock; UTI; BETHEL Interval history: Events overnight noted. He is extubated at this time. Mental status still remains altered possibly at his baseline. Labs noted and hypernatremia has r esolved. Objective - Vital Signs Vital signs: Vital Signs - 12hr 11/15/18 11/15/18 11/15/18 19:15 19:23 19:30 Temperature Pulse Rate 88 75 75 Pulse Rate [ Anterior Bilateral Throughout] Pulse Rate [ 75 From Monitor] Respiratory 23 22 19 Rate Respiratory Rate [Anterior Bilateral Throughout] Respiratory 12 Rate [bree] Blood Pressure 106/63 91/57 O2 Sat by Pulse 99 100 99 Oximetry 11/15/18 11/15/18 11/15/18 19:45 19:51 20:00 Temperature 97.9 F Pulse Rate 74 79 Pulse Rate [ Anterior Bilateral Throughout] Pulse Rate [ From Monitor] Respiratory 19 18 Rate Respiratory Rate [Anterior Bilateral Throughout] Respiratory Rate [bree] Blood Pressure 97/59 92/62 O2 Sat by Pulse 98 100 Oximetry 11/15/18 11/15/18 11/15/18 20:15 20:30 20:40 Temperature Pulse Rate 77 79 Pulse Rate [ Anterior Bilateral Throughout] Pulse Rate [ 75 From Monitor] Respiratory 21 18 22 Rate Respiratory Rate [Anterior Bilateral Throughout] Respiratory Rate [bree] Blood Pressure 98/58 97/60 O2 Sat by Pulse 99 99 100 Oximetry 11/15/18 11/15/18 11/15/18 20:45 21:01 21:15 Temperature Pulse Rate 72 74 76 Pulse Rate [ Anterior Bilateral Throughout] Pulse Rate [ From Monitor] Respiratory 17 18 20 Rate Respiratory Rate [Anterior Bilateral Throughout] Respiratory Rate [bree] Blood Pressure 102/59 103/53 107/59 O2 Sat by Pulse 99 98 100 Oximetry 11/15/18 11/15/18 11/15/18 21:30 21:45 22:00 Temperature Pulse Rate 75 76 Pulse Rate [ Anterior Bilateral Throughout] Pulse Rate [ From Monitor] Respiratory 15 22 Rate Respiratory Rate [Anterior Bilateral Throughout] Respiratory Rate [bree] Blood Pressure 106/63 107/65 O2 Sat by Pulse 99 99 97 Oximetry 11/15/18 11/15/18 11/15/18 22:01 22:15 22:30 Temperature Pulse Rate 77 73 77 Pulse Rate [ Anterior Bilateral Throughout] Pulse Rate [ From Monitor] Respiratory 22 21 15 Rate Respiratory Rate [Anterior Bilateral Throughout] Respiratory Rate [bree] Blood Pressure 109/65 100/76 98/60 O2 Sat by Pulse 98 100 99 Oximetry 11/15/18 11/15/18 11/15/18 22:40 22:45 23:00 Temperature Pulse Rate 75 75 64 Pulse Rate [ Anterior Bilateral Throughout] Pulse Rate [ 75 From Monitor] Respiratory 22 20 19 Rate Respiratory Rate [Anterior Bilateral Throughout] Respiratory Rate [bree] Blood Pressure 100/60 93/55 O2 Sat by Pulse 100 99 99 Oximetry 11/15/18 11/15/18 11/15/18 23:15 23:30 23:31 Temperature 99.1 F Pulse Rate 76 68 Pulse Rate [ Anterior Bilateral Throughout] Pulse Rate [ From Monitor] Respiratory 18 20 Rate Respiratory Rate [Anterior Bilateral Throughout] Respiratory Rate [bree] Blood Pressure 92/59 99/56 O2 Sat by Pulse 98 98 Oximetry 11/15/18 11/15/18 11/15/18 23:40 23:45 23:47 Temperature Pulse Rate 76 75 Pulse Rate [ Anterior Bilateral Throughout] Pulse Rate [ 75 From Monitor] Respiratory 24 22 23 Rate Respiratory Rate [Anterior Bilateral Throughout] Respiratory Rate [bree] Blood Pressure 102/59 102/59 O2 Sat by Pulse 100 96 98 Oximetry 11/16/18 11/16/18 11/16/18 00:00 00:01 00:10 Temperature Pulse Rate 75 Pulse Rate [ 79 90 Anterior Bilateral Throughout] Pulse Rate [ 75 From Monitor] Respiratory 21 Rate Respiratory 22 20 Rate [Anterior Bilateral Throughout] Respiratory Rate [bree] Blood Pressure 92/61 O2 Sat by Pulse 100 Oximetry 11/16/18 11/16/18 11/16/18 00:15 00:30 00:45 Temperature Pulse Rate 74 84 90 Pulse Rate [ Anterior Bilateral Throughout] Pulse Rate [ From Monitor] Respiratory 21 18 21 Rate Respiratory Rate [Anterior Bilateral Throughout] Respiratory Rate [bree] Blood Pressure 99/57 82/49 85/47 O2 Sat by Pulse 98 94 93 Oximetry 11/16/18 11/16/18 11/16/18 01:00 01:15 01:30 Temperature Pulse Rate 87 78 89 Pulse Rate [ Anterior Bilateral Throughout] Pulse Rate [ From Monitor] Respiratory 17 16 21 Rate Respiratory Rate [Anterior Bilateral Throughout] Respiratory Rate [bree] Blood Pressure 74/44 74/44 83/46 O2 Sat by Pulse 95 96 96 Oximetry 11/16/18 11/16/18 11/16/18 01:40 01:45 02:01 Temperature Pulse Rate 75 94 H 85 Pulse Rate [ Anterior Bilateral Throughout] Pulse Rate [ 75 From Monitor] Respiratory 21 17 19 Rate Respiratory Rate [Anterior Bilateral Throughout] Respiratory Rate [bree] Blood Pressure 83/46 109/59 O2 Sat by Pulse 100 95 96 Oximetry 11/16/18 11/16/18 11/16/18 02:15 02:29 02:30 Temperature Pulse Rate 87 85 Pulse Rate [ Anterior Bilateral Throughout] Pulse Rate [ 75 From Monitor] Respiratory 18 21 17 Rate Respiratory Rate [Anterior Bilateral Throughout] Respiratory Rate [bree] Blood Pressure 101/57 102/63 O2 Sat by Pulse 96 100 95 Oximetry 11/16/18 11/16/18 11/16/18 02:45 03:00 03:05 Temperature 99.5 F Pulse Rate 93 H 93 H Pulse Rate [ Anterior Bilateral Throughout] Pulse Rate [ From Monitor] Respiratory 18 16 Rate Respiratory Rate [Anterior Bilateral Throughout] Respiratory Rate [bree] Blood Pressure 94/67 101/64 O2 Sat by Pulse 95 95 Oximetry 11/16/18 11/16/18 11/16/18 03:15 03:30 03:45 Temperature Pulse Rate 95 H 87 78 Pulse Rate [ Anterior Bilateral Throughout] Pulse Rate [ From Monitor] Respiratory 17 19 22 Rate Respiratory Rate [Anterior Bilateral Throughout] Respiratory Rate [bree] Blood Pressure 101/64 87/59 89/55 O2 Sat by Pulse 96 97 Oximetry 11/16/18 11/16/18 11/16/18 04:00 04:15 04:30 Temperature Pulse Rate 77 77 75 Pulse Rate [ Anterior Bilateral Throughout] Pulse Rate [ From Monitor] Respiratory 17 18 18 Rate Respiratory Rate [Anterior Bilateral Throughout] Respiratory Rate [bree] Blood Pressure 85/53 89/58 89/54 O2 Sat by Pulse 98 99 99 Oximetry 11/16/18 11/16/18 11/16/18 04:45 05:00 05:06 Temperature Pulse Rate 75 70 Pulse Rate [ Anterior Bilateral Throughout] Pulse Rate [ 75 From Monitor] Respiratory 18 17 21 Rate Respiratory Rate [Anterior Bilateral Throughout] Respiratory 17 Rate [bree] Blood Pressure 91/55 85/50 O2 Sat by Pulse 100 99 100 Oximetry 11/16/18 11/16/18 11/16/18 05:15 05:30 05:45 Temperature Pulse Rate 73 72 76 Pulse Rate [ Anterior Bilateral Throughout] Pulse Rate [ From Monitor] Respiratory 16 18 16 Rate Respiratory Rate [Anterior Bilateral Throughout] Respiratory Rate [bree] Blood Pressure 91/58 95/59 O2 Sat by Pulse 98 99 99 Oximetry 11/16/18 11/16/18 11/16/18 06:00 06:10 06:15 Temperature Pulse Rate 77 74 Pulse Rate [ Anterior Bilateral Throughout] Pulse Rate [ 75 From Monitor] Respiratory 17 21 16 Rate Respiratory Rate [Anterior Bilateral Throughout] Respiratory Rate [bree] Blood Pressure 90/60 95/59 O2 Sat by Pulse 99 100 99 Oximetry - General Appearance General appearance: well-developed, well-nourished EENT: ATNC, PERRL Neck: no JVD, no thyromegaly, no carotid bruit Respiratory: Present: Clear to Ascultation, Normal Exam Cardiology: regular, S1S2 Gastrointestinal: normal, normoactive bowel sounds Integumentary: no rash Neurologic: no focal deficit, aphasia, other Psychiatric: cooperative - Lab 11/14/18 05:30 11/15/18 09:55 Most recent lab results Calcium 7.8 mg/dL (8.4-10.2) L 02/25/19 09:55 Phosphorus 2.50 mg/dL (2.5-4.5) D 11/14/18 05:30 Magnesium 2.10 mg/dL (1.7-2.3) 11/13/18 05:20 - Allied health notes Allied health notes reviewed: nursing Medications & Allergies - Medications Allergies/Adverse Reactions: Allergies No Known Allergies Allergy (Verified 02/27/15 00:48) Home Medications: Home Medications Medication Instructions Recorded Confirmed Last Taken Type AtorvaSTATin [Lipitor] 40 mg FEEDTUBE QHS 06/21/16 11/11/18 06/20/16 History Ascorbic Acid [Vitamin C] 500 mg FEEDTUBE QDAY 07/14/18 11/11/18 Unknown History Aspirin [Adult Aspirin Regimen] 81 mg FEEDTUBE DAILY 07/14/18 11/11/18 Unknown History Ipratropium/Albuterol Sulfate 1 ampul IH Q6HR 07/14/18 11/11/18 Unknown History [DUONEB *Not for PRN Use*] Multivitamin [Multiple Vitamins] 1 each FEEDTUBE DAILY 07/14/18 11/11/18 Unknown History Protein Supplement [Promod] 30 ml FEEDTUBE Q8H 07/14/18 11/11/18 Unknown History Acetaminophen [Tylenol] 650 mg FEEDTUBE Q4HR PRN 11/11/18 11/11/18 Unknown History Gabapentin [Neurontin] 300 mg FEEDTUBE BID 11/11/18 11/11/18 Unknown History L. Acidophilus/L.bulgaricus 1 each FEEDTUBE QAM 11/11/18 11/11/18 Unknown History [Lactobacillus Tablet] Omeprazole 20 mg FEEDTUBE QAM 11/11/18 11/11/18 Unknown History Potassium Chloride 20 meq FEEDTUBE QDAY 11/11/18 11/11/18 Unknown History guaiFENesin DM [Robitussin Dm] 10 ml FEEDTUBE Q6HR PRN 11/11/18 11/11/18 Unknown History levoFLOXacin [Levaquin TAB] 500 mg FEEDTUBE QDAY 11/11/18 11/11/18 Unknown History Active Medications: Generic Name Dose Route Start Last Admin Trade Name Freq PRN Reason Stop Dose Admin Acetaminophen 650 mg 11/11/18 16:44 Tylenol FEEDTUBE Q4H PRN Pain, Mild (1-3) Albuterol 2.5 mg 11/11/18 15:42 Proventil IH Q3HRT PRN Shortness Of Breath Albuterol/Ipratropium 1 ampul 11/12/18 16:00 11/15/18 23:56 Duoneb *Not For Prn Use* IH 1 ampul Q8HRT SHIRA Administration Lipase/Protease/Amylase 1 each 11/12/18 14:[address] 10,500 Unit FEEDTUBE PRN PRN For Clogged Feeding Tube Ascorbic Acid 500 mg 11/12/18 10:00 11/15/18 10:01 Vitamin C FEEDTUBE 500 mg QDAY SHIRA Administration Atorvastatin Calcium 40 mg 11/11/18 22:00 11/15/18 22:13 Lipitor FEEDTUBE 40 mg QHS SHIRA Administration Gabapentin 300 mg 11/12/18 22:00 11/15/18 22:13 Neurontin PO 300 mg QHS SHIRA Administration Guaifenesin 10 ml 11/11/18 15:53 Guaifenesin Dm Syrup FEEDTUBE Q6HR PRN Cough Heparin Sodium (Porcine) 5,000 unit 11/12/18 14:00 11/15/18 22:11 Heparin SUB-Q 5,000 unit Q12HR SHIRA Administration Hydrophilic Ointment 1 applic 11/11/18 16:03 Vaseline Lip Therapy TP Q2HR PRN Dry Lips Cefepime HCl 2 gm in 100 mls @ 200 mls/hr 11/11/18 22:00 11/15/18 22:07 Maxipime/Ns 2 Gm/100 Ml IV 200 mls/hr Q12HR SHIRA Administration Protocol Midazolam HCl 100 mg/ Sodium 100 mls @ 2 mls/hr 11/11/18 17:00 Chloride IV TITR SHIRA Protocol 2 MG/HR Norepinephrine 4 mg in 250 mls @ 7.5 mls/hr 11/11/18 16:36 11/16/18 01:47 Levophed Drip 4 Mg/Ns 250 Ml IV 2 mcg/min TITR SHIRA 7.5 mls/hr Titration Protocol 2 MCG/MIN Fentanyl Citrate 2,000 mcg in 100 mls @ 2.722 mls/hr 11/11/18 20:00 Fentanyl Drip Premix IV TITR SHIRA Protocol 1 MCG/KG/HR Sodium Chloride 1,000 mls @ 10 mls/hr 11/12/18 15:00 11/12/18 15:06 Nacl 0.9% 1000 Ml IV 10 mls/hr DIRECT SHIRA Administration Linezolid 600 mg in 300 mls @ 300 mls/hr 11/14/18 12:00 11/16/18 02:00 Zyvox 600mg/300ml IV 300 mls/hr Q12H SHIRA Administration Protocol Sodium Chloride 1,000 mls @ 75 mls/hr 11/14/18 16:00 11/15/18 00:23 Nacl 0.45% 1000 Ml IV 75 mls/hr DIRECT SHIRA Administration Insulin Glargine 10 units 11/15/18 13:00 11/15/18 13:15 Lantus SUB-Q 10 units DAILY SHIRA Administration Insulin Human Lispro 0 unit 11/12/18 14:00 11/16/18 06:42 Humalog SUB-Q 4 unit Q6HR SHIRA Administration Protocol Lactobacillus Acidophilus 1 each 11/12/18 10:00 11/15/18 10:01 Floranex PO 1 each QAM SHIRA Administration Lansoprazole 30 mg 11/12/18 10:00 11/15/18 10:01 Prevacid Solutab FEEDTUBE 30 mg QDAY SHIRA Administration Methylprednisolone Sodium Succinate 60 mg 11/12/18 14:00 11/16/18 06:42 Solu-Medrol IV 60 mg Q8HR SHIRA Administration Midazolam HCl 2 mg 11/11/18 16:03 11/11/18 23:27 Versed IV 2 mg Q10MIN PRN Administration Sedation Multi-Ingred Cream/Lotion/Oil/Oint 1 applic 11/11/18 16:03 Artificial Tears Ophth Oint OU Q4HR PRN Dry Eye(s) Multivitamins 5 ml 11/12/18 10:00 11/15/18 10:01 Centrum Liq PO 5 ml QDAY SHIRA Administration Potassium Chloride 20 meq 11/12/18 10:00 11/15/18 10:01 Potassium Chloride FEEDTUBE 20 meq QDAY SHIRA Administration Simple Syrup 15 ml 11/12/18 14:42 Simple Syrup FEEDTUBE PRN PRN Hypoglycemia Simple Syrup 30 ml 11/12/18 14:42 Simple Syrup FEEDTUBE PRN PRN Hypoglycemia Sodium Bicarbonate 325 mg 02/22/19 14:42 Sodium Bicarbonate FEEDTUBE PRN PRN For Clogged Feeding Tube Sodium Chloride 10 ml 11/11/18 22:00 11/15/18 22:13 Sodium Chloride Flush Syringe 10 Ml IV 10 ml BID SHIRA Administration Sodium Chloride 10 ml 11/11/18 15:42 11/14/18 13:49 Sodium Chloride Flush Syringe 10 Ml IV 10 ml PRN PRN Administration LINE FLUSH
[2018-11-16] MEDS: DUONEB *Not for PRN Use IH SCH ×3 (08:57→20:41)
--- NOTE | 2018-11-16 09:11 | Progress Note ---
Assessment and Plan Cultures: Blood culture 11/11/2018 no growth. Urine culture 11/11/2018 no growth. Tracheal asp 11/11/2018 VISA (VANCOMYCIN INTERMEDIATE STAPH AUREUS). Assessment: 58 y/o male with history of HTN, DM, COPD, CVA with aphasia and right-sided hemiparesis, contracture, dysphagia s/p G tube placement; admitted on 11/11/2018 from the longterm due to AMS/confusion/unresponsiveness: 1) Severe Sepsis with septic shock: off pressors x 48h, no fever for 72h. Etiology most likely multifactorial - complicated UTI +/- pneumonia. CRP 13. Blood culture neg. 2) Complicated UTI: patient with hsitory of recurrrent UTI. Reviewed of micro records noted urine culture in January 2015 with MDR Pseudomonas sensitive to cefepime and zosyn, resistant to imipenem and quinolones. UA with wbc 182, LE la rge. CT scan of the abdomen diffusely irregular wall thickening with bilateral hydronephrosis and bilateral nonobstructive renal stones. There was also masslike area in the left superior bladder wall, also noted moderate bilateral hydroureteronephrosis without obstructing ureteral calculus. Slade placed this admission. 3) Pneumonia/HAP: CXR showed RML atelectasis, repeat CXR showed bilateral pulm onary vascular congestion. CT abd showed right lower lobe consolidation concerning for pneumonia. Right middle lobe opacities also concerning for pneumonia versus aspiration. Tracheal asp 11/11/2018 VISA (VANCOMYCIN INTERMEDIATE STAPH AUREUS). 4) Respiratory failure: still intubated. Recommendations: - requested confirmatory E-test for VANCOMYCIN INTERMEDIATE STAPH AUREUS, if positive isolate has to be reported to State Department - please ask about slade duration/ recommended conservative management - Strict contact isolation due to VISA and history of MDR Pseudomonas - continue zyvox 600 mg ok to change to PO q12h to cover VISA pneumonia D3 of 10 - continue cefepime for now D6 of 7 for UTI - at some point he will require cystocopy to eval bladder mass - aspiration precautions Overall prognosis is poor, please discuss with family palliative care Will follow. Brianna Yousif MD Infectious Diseases [facility] ([facility] M [phone] O [phone] Subjective Date of service: 11/16/18 Principal diagnosis: Acute Hypoxemic Resp Failure; Severe sepsis with shock; UTI; BETHEL Interval history: Patient was extubated now on NC O2, intubated, no fever for 72h. Alert no f ollows commands. ROS: unable to obtain Objective - Exam Narrative Exam: General appearance: more alert in NAD extubated on NC Eyes: anicteric sclerae, moist conjunctivae; no lid-lag; PERRLA HENT: Atraumatic; oropharynx limited Neck: Trachea midline; supple, no thyromegaly or lymphadenopathy Lungs: dina rhonchi CV: RRR, no murmurs Abdomen: Soft, non-tender; +PEG Extremities: + left arm edema + RUE contraction Skin: Normal temperature, turgor and texture; no rash, ulcers or subcutaneous nodules Psych: alert no follows commands Neuro: alert no agitated R IJ TLC - Constitutional Vitals: Vital Signs Temp Pulse Resp BP Pulse Ox 98 F 73 15 97/57 97 11/16/18 08:00 11/16/18 09:00 11/16/18 09:00 11/16/18 09:00 11/16/18 09:00 Temperature -Last 24 Hours Temperature 98 F Temperature 99.5 F Temperature 99.1 F Temperature 97.9 F Temperature 99.0 F - Labs CBC & Chem 7: 11/14/18 05:30 11/15/18 09:55 Labs: Abnormal lab results 11/15/18 11/15/18 11/15/18 Range/Units 09:55 12:51 14:26 POC ABG pH 7.339 L (7.35-7.45) Chloride 111.5 H (98-107) mmol/L BUN 30 H (9-20) mg/dL Creatinine 0.5 L (0.8-1.5) mg/dL Glucose 239 H (75-100) mg/dL POC Glucose 254 H (70-105) Calcium 7.8 L (8.4-10.2) mg/dL 11/15/18 11/15/18 11/16/18 Range/Units 17:49 23:54 05:04 POC ABG pH (7.35-7.45) Chloride (98-107) mmol/L BUN (9-20) mg/dL Creatinine (0.8-1.5) mg/dL Glucose (75-100) mg/dL POC Glucose 179 H 146 H 297 H (70-105) Calcium (8.4-10.2) mg/dL
[2018-11-16] MEDS: MAXIPIME/NS 2 GM/100 ML 2 GM/100 ML BAG IV SCH ×2 (09:59→23:38)
[2018-11-16] MEDS: LANTUS SUB-Q SCH (10:00)
[2018-11-16] MEDS: FLORANEX PO SCH (10:01)
[2018-11-16] MEDS: HEPARIN SUB-Q SCH ×2 (10:02→23:37)
[2018-11-16] MEDS: VITAMIN C FEEDTUBE SCH (10:02)
[2018-11-16] MEDS: POTASSIUM CHLORIDE FEEDTUBE SCH (10:02)
[2018-11-16] MEDS: Centrum Liq PO SCH (10:02)
[2018-11-16] MEDS: PREVACID SOLUTAB FEEDTUBE SCH (10:03)
[2018-11-16] MEDS: SODIUM CHLORIDE FLUSH SYRINGE 10 ML IV SCH ×2 (10:04→23:36)
[2018-11-16] MEDS: ZYVOX PO SCH ×2 (11:00→23:42)
[2018-11-16] MEDS ORDERED: NACL 0.9% 1000 ML 1,000 ML IV SCH (12:00)
--- NOTE | 2018-11-16 13:06 | Progress Note ---
Assessment and Plan Acute hypoxemic respiratory failure, on mechanical ventilatory support. Acute on chronic encephalopathy. Severe sepsis with shock, presumably due to UTI Urinary tract infection. Acute kidney injury. Likely bladder outlet obstruction. Bilateral hydronephrosis. Nephrolithiasis. History of diabetes. Hypertension. Chronic obstructive lung disease. Prior cerebrovascular accident with left hemiparesis. Oropharyngeal dysphagia. Metabolic acidosis. Hyponatremia, moderate. Adult failure to thrive. - begin IVNS at 500 mls/hr X 1 liter - begin midodrine 10 mg p.o. tid - continue aspiration precautions - continue to wean levophed for MAP > 65 mmHg (on 2 mics/min) - continue bronchodilators with pulmonary hygiene per RT - nephrology evaluation ongoing - continue slade catheter and follow urologist recommendations - continue enteral nutrition as tolerated - PT/OT/ROM exercises as tolerated - mobility protocol for pressure ulcer prophylaxis - continue GI & VTE prophylaxis - continue other care per attending / other consultants ...... re-evaluate in am & prn ...... tentative transfer to [facility] The high probability of a clinically significant, sudden or life threatening deterioration of the [cardiac, respiratory and neurologic] system(s) required my full and direct attention, intervention and personal management. The aggregate critical care time was [31] minutes. This time is in addition to time spent performing reported procedures but includes the following: [x] Data Review and interpretation [x] Patient assessment and monitoring of vital signs [x] Documentation [x] Medication orders and management Subjective Date of service: 11/16/18 Principal diagnosis: Acute Hypoxemic Resp Failure; Severe sepsis with shock; UTI; BETHEL Interval history: Patient is seen today for: Acute hypoxemic respiratory failure on mechanical ventilatory support; Acute on chronic encephalopathy; Severe sepsis with shock, presumably due to UTI; Urinary tract infection; Acute kidney injury. Seen and examined at bedside; 24hour events reviewed; nursing and respiratory care staff consulted; no adverse overnight events reported to me; resting peacefully in bed; extubated and on supplemental oxygen; had to go back on levophed today but at low dose; still non communicative Objective Vital Signs - 12hr 11/16/18 11/16/18 11/16/18 01:15 01:30 01:40 Temperature Pulse Rate 78 89 75 Pulse Rate [ Anterior Bilateral Throughout] Pulse Rate [ 75 From Monitor] Respiratory 16 21 21 Rate Respiratory Rate [Anterior Bilateral Throughout] Respiratory Rate [bree] Blood Pressure 74/44 83/46 O2 Sat by Pulse 96 96 100 Oximetry 11/16/18 11/16/18 11/16/18 01:45 02:01 02:15 Temperature Pulse Rate 94 H 85 87 Pulse Rate [ Anterior Bilateral Throughout] Pulse Rate [ From Monitor] Respiratory 17 19 18 Rate Respiratory Rate [Anterior Bilateral Throughout] Respiratory Rate [bree] Blood Pressure 83/46 109/59 101/57 O2 Sat by Pulse 95 96 96 Oximetry 11/16/18 11/16/18 11/16/18 02:29 02:30 02:45 Temperature Pulse Rate 85 93 H Pulse Rate [ Anterior Bilateral Throughout] Pulse Rate [ 75 From Monitor] Respiratory 21 17 18 Rate Respiratory Rate [Anterior Bilateral Throughout] Respiratory Rate [bree] Blood Pressure 102/63 94/67 O2 Sat by Pulse 100 95 95 Oximetry 11/16/18 11/16/18 11/16/18 03:00 03:05 03:15 Temperature 99.5 F Pulse Rate 93 H 95 H Pulse Rate [ Anterior Bilateral Throughout] Pulse Rate [ From Monitor] Respiratory 16 17 Rate Respiratory Rate [Anterior Bilateral Throughout] Respiratory Rate [bree] Blood Pressure 101/64 101/64 O2 Sat by Pulse 95 Oximetry 11/16/18 11/16/18 11/16/18 03:30 03:45 04:00 Temperature Pulse Rate 87 78 77 Pulse Rate [ Anterior Bilateral Throughout] Pulse Rate [ From Monitor] Respiratory 19 22 17 Rate Respiratory Rate [Anterior Bilateral Throughout] Respiratory Rate [bree] Blood Pressure 87/59 89/55 85/53 O2 Sat by Pulse 96 97 98 Oximetry 11/16/18 11/16/18 11/16/18 04:15 04:30 04:45 Temperature Pulse Rate 77 75 75 Pulse Rate [ Anterior Bilateral Throughout] Pulse Rate [ From Monitor] Respiratory 18 18 18 Rate Respiratory Rate [Anterior Bilateral Throughout] Respiratory Rate [bree] Blood Pressure 89/58 89/54 91/55 O2 Sat by Pulse 99 99 100 Oximetry 11/16/18 11/16/18 11/16/18 05:00 05:06 05:15 Temperature Pulse Rate 70 73 Pulse Rate [ Anterior Bilateral Throughout] Pulse Rate [ 75 From Monitor] Respiratory 17 21 16 Rate Respiratory Rate [Anterior Bilateral Throughout] Respiratory 17 Rate [bree] Blood Pressure 85/50 O2 Sat by Pulse 99 100 98 Oximetry 11/16/18 11/16/18 11/16/18 05:30 05:45 06:00 Temperature Pulse Rate 72 76 77 Pulse Rate [ Anterior Bilateral Throughout] Pulse Rate [ From Monitor] Respiratory 18 16 17 Rate Respiratory Rate [Anterior Bilateral Throughout] Respiratory Rate [bree] Blood Pressure 91/58 95/59 90/60 O2 Sat by Pulse 99 99 99 Oximetry 11/16/18 11/16/18 11/16/18 06:10 06:15 06:31 Temperature Pulse Rate 74 69 Pulse Rate [ Anterior Bilateral Throughout] Pulse Rate [ 75 From Monitor] Respiratory 21 16 17 Rate Respiratory Rate [Anterior Bilateral Throughout] Respiratory Rate [bree] Blood Pressure 95/59 95/59 O2 Sat by Pulse 100 99 100 Oximetry 11/16/18 11/16/18 11/16/18 06:45 07:00 07:15 Temperature Pulse Rate 70 72 71 Pulse Rate [ Anterior Bilateral Throughout] Pulse Rate [ From Monitor] Respiratory 15 17 15 Rate Respiratory Rate [Anterior Bilateral Throughout] Respiratory Rate [bree] Blood Pressure 90/60 91/58 90/60 O2 Sat by Pulse 100 99 96 Oximetry 11/16/18 11/16/18 11/16/18 07:31 07:45 08:00 Temperature 98 F Pulse Rate 74 66 63 Pulse Rate [ Anterior Bilateral Throughout] Pulse Rate [ 75 From Monitor] Respiratory 16 16 15 Rate Respiratory Rate [Anterior Bilateral Throughout] Respiratory Rate [bree] Blood Pressure 90/60 91/58 93/54 O2 Sat by Pulse 98 98 95 Oximetry 11/16/18 11/16/18 11/16/18 08:15 08:31 08:45 Temperature Pulse Rate 62 74 75 Pulse Rate [ Anterior Bilateral Throughout] Pulse Rate [ From Monitor] Respiratory 17 17 14 Rate Respiratory Rate [Anterior Bilateral Throughout] Respiratory Rate [bree] Blood Pressure 93/54 93/54 93/54 O2 Sat by Pulse 98 97 97 Oximetry 11/16/18 11/16/18 11/16/18 08:56 08:57 09:00 Temperature Pulse Rate 73 Pulse Rate [ 74 Anterior Bilateral Throughout] Pulse Rate [ From Monitor] Respiratory 15 Rate Respiratory 12 Rate [Anterior Bilateral Throughout] Respiratory Rate [bree] Blood Pressure 97/57 O2 Sat by Pulse 98 97 Oximetry 11/16/18 11/16/18 11/16/18 09:06 09:15 09:31 Temperature Pulse Rate 78 87 Pulse Rate [ 76 Anterior Bilateral Throughout] Pulse Rate [ From Monitor] Respiratory 18 16 Rate Respiratory 14 Rate [Anterior Bilateral Throughout] Respiratory Rate [bree] Blood Pressure 93/54 93/54 O2 Sat by Pulse 95 95 Oximetry 11/16/18 11/16/18 11/16/18 09:45 10:00 10:15 Temperature Pulse Rate 84 85 90 Pulse Rate [ Anterior Bilateral Throughout] Pulse Rate [ From Monitor] Respiratory 17 14 17 Rate Respiratory Rate [Anterior Bilateral Throughout] Respiratory Rate [bree] Blood Pressure 97/57 87/55 87/55 O2 Sat by Pulse 95 97 98 Oximetry 11/16/18 11/16/18 11/16/18 10:31 10:45 11:00 Temperature Pulse Rate 85 82 80 Pulse Rate [ Anterior Bilateral Throughout] Pulse Rate [ From Monitor] Respiratory 16 16 17 Rate Respiratory Rate [Anterior Bilateral Throughout] Respiratory Rate [bree] Blood Pressure 87/55 87/55 103/66 O2 Sat by Pulse 97 95 96 Oximetry 11/16/18 11/16/18 11:15 11:31 Temperature Pulse Rate 81 81 Pulse Rate [ Anterior Bilateral Throughout] Pulse Rate [ From Monitor] Respiratory 20 20 Rate Respiratory Rate [Anterior Bilateral Throughout] Respiratory Rate [bree] Blood Pressure 103/66 103/66 O2 Sat by Pulse 90 93 Oximetry Constitutional: appears uncomfortable, other (elderly, chronically ill looking CM, normocephalic and atraumatic with increased respiratory effort at rest) Eyes: non-icteric ENT: oropharynx moist, other (extubated) Neck: supple, no lymphadenopathy, no JVD, other (no thyromegaly) Effort: mildly labored Ascultation: Bilateral: diminished breath sounds, rhonchi Percussion: Bilateral: not dull Cardiovascular: regular rate and rhythm Gastrointestinal: normoactive bowel sounds, soft, non-tender, non-distended Integumentary: rash, other (poor turgor; decubitus ulcer) Extremities: no edema, pink and warm, pulses normal, other (? early digital gangrene) Neurologic: non-focal exam, unable to assess Psychiatric: other (unable to assess) CBC and BMP: 11/17/18 04:40 11/17/18 04:40 ABG, PT/INR, D-dimer: ABG POC ABG pH 7.339 (7.35-7.45) L 11/15/18 14:26 POC ABG pCO2 35.6 (35-45) 11/15/18 14:26 POC ABG pO2 102 (80-105) 11/15/18 14:26 POC ABG HCO3 19.1 11/15/18 14:26 POC ABG Total CO2 20 11/15/18 14:26 POC ABG O2 Sat 98 11/15/18 14:26 PT/INR, D-dimer D-Dimer 2061.41 ng/mlDDU (0-234) H 11/11/18 20:41 Abnormal lab findings: Abnormal Labs 11/11/18 11/11/18 11/11/18 09:55 09:55 10:22 WBC RBC Hgb Hct MCHC 35 H Plt Count Lymph % (Auto) 2.9 L Amelia % (Auto) 9.8 H Lymph # 0.3 L Amelia # 1.0 H Seg Neutrophils % 87.0 H Seg Neuts % (Manual) Lymphocytes % (Manual) Seg Neutrophils # 8.7 H Seg Neutrophils # Man Lymphocytes # (Manual) D-Dimer POC ABG pH POC ABG pCO2 POC ABG pO2 Sodium 129 L Chloride 95.5 L Carbon Dioxide 18 L BUN 155 H Creatinine 3.1 H Glucose 196 H POC Glucose Calcium Phosphorus C-Reactive Protein Total Protein Albumin 2.4 L Urine pH 8.0 H Urine WBC (Auto) > 182.0 H 11/11/18 11/11/18 11/11/18 12:04 18:36 20:41 WBC RBC Hgb Hct MCHC Plt Count Lymph % (Auto) Amelia % (Auto) Lymph # Amelia # Seg Neutrophils % Seg Neuts % (Manual) Lymphocytes % (Manual) Seg Neutrophils # Seg Neutrophils # Man Lymphocytes # (Manual) D-Dimer POC ABG pH 7.335 L 7.256 L POC ABG pCO2 34.8 L POC ABG pO2 55 L 74 L Sodium Chloride Carbon Dioxide BUN Creatinine Glucose POC Glucose Calcium Phosphorus C-Reactive Protein 13.70 H Total Protein Albumin Urine pH Urine WBC (Auto) 11/11/18 11/11/18 11/12/18 20:41 21:37 04:20 WBC RBC Hgb Hct MCHC Plt Count Lymph % (Auto) Amelia % (Auto) Lymph # Amelia # Seg Neutrophils % Seg Neuts % (Manual) Lymphocytes % (Manual) Seg Neutrophils # Seg Neutrophils # Man Lymphocytes # (Manual) D-Dimer 1.41 H POC ABG pH 7.328 L POC ABG pCO2 32.9 L 27.6 L POC ABG pO2 170 H Sodium Chloride Carbon Dioxide BUN Creatinine Glucose POC Glucose Calcium Phosphorus C-Reactive Protein Total Protein Albumin Urine pH Urine WBC (Auto) 11/12/18 11/12/18 11/12/18 05:14 06:30 06:30 WBC 15.3 H RBC Hgb Hct 34.9 L MCHC Plt Count Lymph % (Auto) Amelia % (Auto) Lymph # Amelia # Seg Neutrophils % Seg Neuts % (Manual) 94.0 H Lymphocytes % (Manual) 1.0 L Seg Neutrophils # 13.7 H Seg Neutrophils # Man 14.4 H Lymphocytes # (Manual) 0.2 L D-Dimer POC ABG pH POC ABG pCO2 POC ABG pO2 Sodium Chloride 113.2 H Carbon Dioxide 19 L BUN 93 H Creatinine Glucose 182 H POC Glucose 176 H Calcium 7.9 L Phosphorus C-Reactive Protein Total Protein 5.2 L Albumin 2.0 L Urine pH Urine WBC (Auto) 11/12/18 11/12/18 11/13/18 12:23 18:20 00:17 WBC RBC Hgb Hct MCHC Plt Count Lymph % (Auto) Amelia % (Auto) Lymph # Amelia # Seg Neutrophils % Seg Neuts % (Manual) Lymphocytes % (Manual) Seg Neutrophils # Seg Neutrophils # Man Lymphocytes # (Manual) D-Dimer POC ABG pH POC ABG pCO2 POC ABG pO2 Sodium Chloride Carbon Dioxide BUN Creatinine Glucose POC Glucose 201 H 218 H 222 H Calcium Phosphorus C-Reactive Protein Total Protein Albumin Urine pH Urine WBC (Auto) 11/13/18 11/13/18 11/13/18 04:41 04:53 05:20 WBC RBC 3.62 L Hgb 11.3 L Hct 32.8 L MCHC Plt Count Lymph % (Auto) Amelia % (Auto) Lymph # Amelia # Seg Neutrophils % Seg Neuts % (Manual) 90.0 H Lymphocytes % (Manual) 5.0 L Seg Neutrophils # Seg Neutrophils # Man 8.8 H Lymphocytes # (Manual) 0.5 L D-Dimer POC ABG pH POC ABG pCO2 31.0 L POC ABG pO2 Sodium Chloride Carbon Dioxide BUN Creatinine Glucose POC Glucose 238 H Calcium Phosphorus C-Reactive Protein Total Protein Albumin Urine pH Urine WBC (Auto) 11/13/18 11/13/18 11/13/18 05:20 11:58 17:47 WBC RBC Hgb Hct MCHC Plt Count Lymph % (Auto) Amelia % (Auto) Lymph # Amelia # Seg Neutrophils % Seg Neuts % (Manual) Lymphocytes % (Manual) Seg Neutrophils # Seg Neutrophils # Man Lymphocytes # (Manual) D-Dimer POC ABG pH POC ABG pCO2 POC ABG pO2 Sodium 149 H Chloride 120.8 H Carbon Dioxide 18 L BUN 52 H Creatinine 0.7 L Glucose 247 H POC Glucose 306 H 217 H Calcium 7.8 L Phosphorus 1.90 L C-Reactive Protein Total Protein Albumin Urine pH Urine WBC (Auto) 11/13/18 11/14/18 11/14/18 23:05 04:24 05:30 WBC RBC Hgb Hct MCHC Plt Count Lymph % (Auto) Amelia % (Auto) Lymph # Amelia # Seg Neutrophils % Seg Neuts % (Manual) Lymphocytes % (Manual) Seg Neutrophils # Seg Neutrophils # Man Lymphocytes # (Manual) D-Dimer POC ABG pH 7.294 L POC ABG pCO2 POC ABG pO2 Sodium 150 H Chloride 121.3 H Carbon Dioxide BUN 40 H Creatinine 0.6 L Glucose 241 H POC Glucose 207 H Calcium 7.9 L Phosphorus C-Reactive Protein Total Protein Albumin Urine pH Urine WBC (Auto) 11/14/18 11/14/18 11/14/18 05:30 05:32 11:36 WBC RBC 3.22 L Hgb 10.0 L Hct 29.7 L MCHC Plt Count 137 L Lymph % (Auto) Amelia % (Auto) Lymph # Amelia # Seg Neutrophils % Seg Neuts % (Manual) 89.0 H Lymphocytes % (Manual) 3.0 L Seg Neutrophils # Seg Neutrophils # Man Lymphocytes # (Manual) 0.2 L D-Dimer POC ABG pH POC ABG pCO2 POC ABG pO2 Sodium Chloride Carbon Dioxide BUN Creatinine Glucose POC Glucose 235 H 277 H Calcium Phosphorus C-Reactive Protein Total Protein Albumin Urine pH Urine WBC (Auto) 11/14/18 11/14/18 11/15/18 17:52 23:48 05:20 WBC RBC Hgb Hct MCHC Plt Count Lymph % (Auto) Amelia % (Auto) Lymph # Amelia # Seg Neutrophils % Seg Neuts % (Manual) Lymphocytes % (Manual) Seg Neutrophils # Seg Neutrophils # Man Lymphocytes # (Manual) D-Dimer POC ABG pH POC ABG pCO2 POC ABG pO2 Sodium Chloride Carbon Dioxide BUN Creatinine Glucose POC Glucose 257 H 243 H 250 H Calcium Phosphorus C-Reactive Protein Total Protein Albumin Urine pH Urine WBC (Auto) 11/15/18 11/15/18 11/15/18 09:55 12:51 14:26 WBC RBC Hgb Hct MCHC Plt Count Lymph % (Auto) Amelia % (Auto) Lymph # Amelia # Seg Neutrophils % Seg Neuts % (Manual) Lymphocytes % (Manual) Seg Neutrophils # Seg Neutrophils # Man Lymphocytes # (Manual) D-Dimer POC ABG pH 7.339 L POC ABG pCO2 POC ABG pO2 Sodium Chloride 111.5 H Carbon Dioxide BUN 30 H Creatinine 0.5 L Glucose 239 H POC Glucose 254 H Calcium 7.8 L Phosphorus C-Reactive Protein Total Protein Albumin Urine pH Urine WBC (Auto) 11/15/18 11/15/18 11/16/18 17:49 23:54 05:04 WBC RBC Hgb Hct MCHC Plt Count Lymph % (Auto) Amelia % (Auto) Lymph # Amelia # Seg Neutrophils % Seg Neuts % (Manual) Lymphocytes % (Manual) Seg Neutrophils # Seg Neutrophils # Man Lymphocytes # (Manual) D-Dimer POC ABG pH POC ABG pCO2 POC ABG pO2 Sodium Chloride Carbon Dioxide BUN Creatinine Glucose POC Glucose 179 H 146 H 297 H Calcium Phosphorus C-Reactive Protein Total Protein Albumin Urine pH Urine WBC (Auto) 11/16/18 09:08 WBC RBC Hgb Hct MCHC Plt Count Lymph % (Auto) Amelia % (Auto) Lymph # Amelia # Seg Neutrophils % Seg Neuts % (Manual) Lymphocytes % (Manual) Seg Neutrophils # Seg Neutrophils # Man Lymphocytes # (Manual) D-Dimer POC ABG pH POC ABG pCO2 POC ABG pO2 Sodium Chloride Carbon Dioxide BUN Creatinine Glucose POC Glucose 244 H Calcium Phosphorus C-Reactive Protein Total Protein Albumin Urine pH Urine WBC (Auto) Allied health notes reviewed: nursing
[2018-11-16] MEDS: PROAMATINE PO SCH ×2 (13:15→23:37)
--- NOTE | 2018-11-16 18:50 | Progress Note ---
Assessment and Plan Assessment and plan: Severe Sepsis with shock. F/U Blood cx. sec UTI/PNA. Cont. Iv abx. Wean pressors to maintain MAP>65. Etiology secondary to UTI/PNA. ID following Acute hypoxemic resp failure. Cont. per Pulm. Etiology sec RLL PNA. However, elevated d-dimer--consider PE but Doppler negative. CTA chest when he modynamically stable. Check Echo. patient extubated 11/15/18 UTi. Cont IV abx. F/U cx. CTAP (11-11-18) bilat hydro (no obstructing stone), bladder mass,Cystitis. Urology following and recommends conservative management. Toxic metabolic encephalopathy ARF. Etiology likely secondary to BETHEL secondary to atn/sepsis RLL Pneumonia. Cont Abx. Tracheal asp 11/11/2018 VISA (VANCOMYCIN INTERMEDIATE STAPH AUREUS). ID following The high probability of a clinically significant, sudden or life threatening deterioration of the [respiratory, hemodynamic] system(s) required my full and direct attention, intervention and personal management. The aggregate critical care time was [32] minutes. This time is in addition to time spent performing reported procedures but includes the following: [x] Data Review and interpretation [x] Patient assessment and monitoring of vital signs [x] Documentation [x] Medication orders and management History Interval history: 58 YO Male Usp Resident with HTN, DM, COPD, CVA with LHP, Contracture, and Dysphagia S/P G tube placement, DM, COPD, presents to ED for evaluation. Pt is stuporous and unable to provide history. History taken from SNF staff. As per SNF staff, the patient was found to be confused and nonresponsive. Pt seen and found to have Sepsis secondary to UTI, Acute Renal Failure, Acute Hypoxemic Respiratory Failure. Pt admitted to ICU and initiated on sepsis protocol. History Interval history: Patient was seen and evaluated this morning, patient was alert but not communicative. Hospitalist Physical - Physical exam Narrative exam: Patient is intubated and on, SBT. The patient appeared well nourished and normally developed. Vital signs as documented. Head exam is unremarkable. No scleral icterus . Neck is without jugular venous distension, thyromegaly, or carotid bruits. Lungs are clear to auscultation. Cardiac exam reveals regular rate and Rhythm. First and second heart sounds normal. No murmurs, rubs or gallops. Abdominal exam reveals normal bowel sounds, no masses, no organomegaly and no aortic enlargement. 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 - Constitutional Vitals: Temp Pulse Resp BP Pulse Ox 98.2 F 78 21 109/64 94 11/16/18 16:00 11/16/18 18:31 11/16/18 18:31 11/16/18 18:31 11/16/18 18:31 General appearance: Present: cachectic, other (intubated on mech ventilation) Results - Labs CBC & Chem 7: 11/14/18 05:30 11/15/18 09:55 Labs: Laboratory Last Values WBC 7.3 K/mm3 (4.5-11.0) 11/14/18 05:30 RBC 3.22 M/mm3 (3.65-5.03) L 11/14/18 05:30 Hgb 10.0 gm/dl (11.8-15.2) L 11/14/18 05:30 Hct 29.7 % (35.5-45.6) L 11/14/18 05:30 MCV 92 fl (84-94) 11/14/18 05:30 MCH 31 pg (28-32) 11/14/18 05:30 MCHC 34 % (32-34) 11/14/18 05:30 RDW 14.3 % (13.2-15.2) 11/14/18 05:30 Plt Count 137 K/mm3 (140-440) L 11/14/18 05:30 Lymph % (Auto) 2.9 % (13.4-35.0) L 11/11/18 09:55 Schley % (Auto) 5.7 % (0.0-7.3) 11/12/18 06:30 Eos % (Auto) 0.0 % (0.0-4.3) 11/12/18 06:30 Baso % (Auto) 0.3 % (0.0-1.8) 11/11/18 09:55 Lymph # 0.3 K/mm3 (1.2-5.4) L 11/11/18 09:55 Schley # 0.8 K/mm3 (0.0-0.8) 11/12/18 06:30 Eos # 0.0 K/mm3 (0.0-0.4) 11/12/18 06:30 Baso # 0.0 K/mm3 (0.0-0.1) 11/12/18 06:30 Add Manual Diff Complete 11/14/18 05:30 Total Counted 100 11/14/18 05:30 Seg Neutrophils % Felt Dyeing Machine Tender 11/14/18 05:30 Seg Neuts % (Manual) 89.0 % (40.0-70.0) H 11/14/18 05:30 Band Neutrophils % 2.0 % 11/14/18 05:30 Lymphocytes % (Manual) 3.0 % (13.4-35.0) L 11/14/18 05:30 Reactive Lymphs % (Man) 0 % 11/14/18 05:30 Monocytes % (Manual) 5.0 % (0.0-7.3) 11/14/18 05:30 Eosinophils % (Manual) 0 % (0.0-4.3) 11/14/18 05:30 Basophils % (Manual) 0 % (0.0-1.8) 11/14/18 05:30 Metamyelocytes % 1.0 % 11/14/18 05:30 Myelocytes % 0 % 11/14/18 05:30 Promyelocytes % 0 % 11/14/18 05:30 Blast Cells % 0 % 11/14/18 05:30 Nucleated RBC % Not Reportable 11/14/18 05:30 Seg Neutrophils # 13.7 K/mm3 (1.8-7.7) H 11/12/18 06:30 Seg Neutrophils # Man 6.5 K/mm3 (1.8-7.7) 11/14/18 05:30 Band Neutrophils # 0.1 K/mm3 11/14/18 05:30 Lymphocytes # (Manual) 0.2 K/mm3 (1.2-5.4) L 11/14/18 05:30 Abs React Lymphs (Man) 0.0 K/mm3 11/14/18 05:30 Monocytes # (Manual) 0.4 K/mm3 (0.0-0.8) 11/14/18 05:30 Eosinophils # (Manual) 0.0 K/mm3 (0.0-0.4) 11/14/18 05:30 Basophils # (Manual) 0.0 K/mm3 (0.0-0.1) 11/14/18 05:30 Metamyelocytes # 0.1 K/mm3 11/14/18 05:30 Myelocytes # 0.0 K/mm3 11/14/18 05:30 Promyelocytes # 0.0 K/mm3 11/14/18 05:30 Blast Cells # 0.0 K/mm3 11/14/18 05:30 WBC Morphology Not Reportable 11/14/18 05:30 Hypersegmented Neuts Not Reportable 11/14/18 05:30 Hyposegmented Neuts Not Reportable 11/14/18 05:30 Hypogranular Neuts Not Reportable 11/14/18 05:30 Smudge Cells Not Reportable 11/14/18 05:30 Toxic Granulation Not Reportable 11/14/18 05:30 Toxic Vacuolation Not Reportable 11/14/18 05:30 Dohle Bodies Not Reportable 11/14/18 05:30 Pelger-Huet Anomaly Not Reportable 11/14/18 05:30 Meghan Rods Not Reportable 11/14/18 05:30 Platelet Estimate Consistent w auto 11/14/18 05:30 Clumped Platelets Not Reportable 11/14/18 05:30 Plt Clumps, EDTA Not Reportable 11/14/18 05:30 Large Platelets Not Reportable 11/14/18 05:30 Giant Platelets Not Reportable 11/14/18 05:30 Platelet Satelliting Not Reportable 11/14/18 05:30 Plt Morphology Comment Not Reportable 11/14/18 05:30 RBC Morphology Not Reportable 11/14/18 05:30 Dimorphic RBCs Not Reportable 11/14/18 05:30 Polychromasia Not Reportable 11/14/18 05:30 Hypochromasia 1+ 11/14/18 05:30 Poikilocytosis Not Reportable 11/14/18 05:30 Anisocytosis Few 11/14/18 05:30 Microcytosis Not Reportable 11/14/18 05:30 Macrocytosis Not Reportable 11/14/18 05:30 Spherocytes Not Reportable 11/14/18 05:30 Pappenheimer Bodies Not Reportable 11/14/18 05:30 Sickle Cells Not Reportable 11/14/18 05:30 Target Cells Not Reportable 11/14/18 05:30 Tear Drop Cells Not Reportable 11/14/18 05:30 Ovalocytes Not Reportable 11/14/18 05:30 Helmet Cells Not Reportable 11/14/18 05:30 [place] Bodies Not Reportable 11/14/18 05:30 [place] Rings Not Reportable 11/14/18 05:30 [place] Cells Not Reportable 11/14/18 05:30 Bite Cells Not Reportable 11/14/18 05:30 Crenated Cell Not Reportable 11/14/18 05:30 Elliptocytes Not Reportable 11/14/18 05:30 Acanthocytes (Spur) Not Reportable 11/14/18 05:30 Rouleaux Not Reportable 11/14/18 05:30 Hemoglobin C Crystals Not Reportable 11/14/18 05:30 Schistocytes Not Reportable 11/14/18 05:30 Malaria parasites Not Reportable 11/14/18 05:30 [place] Bodies Not Reportable 11/14/18 05:30 Hem Pathologist Commnt No 11/14/18 05:30 D-Dimer 2061.41 ng/mlDDU (0-234) H 11/11/18 20:41 POC ABG pH 7.339 (7.35-7.45) L 11/15/18 14:26 POC ABG pCO2 35.6 (35-45) 11/15/18 14:26 POC ABG pO2 102 (80-105) 11/15/18 14:26 POC ABG HCO3 19.1 11/15/18 14:26 POC ABG Total CO2 20 11/15/18 14:26 POC ABG O2 Sat 98 11/15/18 14:26 POC ABG Base Excess -7 11/15/18 14:26 VBG pH 7.343 (7.320-7.420) 11/11/18 15:04 FiO2 30 % 11/15/18 14:26 Sodium 143 mmol/L (137-145) 11/15/18 09:55 Potassium 3.6 mmol/L (3.6-5.0) 11/15/18 09:55 Chloride 111.5 mmol/L (98-107) H 11/15/18 09:55 Carbon Dioxide 22 mmol/L (22-30) 11/15/18 09:55 Anion Gap 13 mmol/L 11/15/18 09:55 BUN 30 mg/dL (9-20) H 11/15/18 09:55 Creatinine 0.5 mg/dL (0.8-1.5) L 11/15/18 09:55 Estimated GFR > 60 ml/min 11/15/18 09:55 BUN/Creatinine Ratio 60 % 11/15/18 09:55 Glucose 239 mg/dL (75-100) H 11/15/18 09:55 POC Glucose 221 (70-105) H 11/16/18 17:16 Lactic Acid 1.10 mmol/L (0.7-2.0) 11/11/18 23:19 Calcium 7.8 mg/dL (8.4-10.2) L 11/15/18 09:55 Phosphorus 2.50 mg/dL (2.5-4.5) D 11/14/18 05:30 Magnesium 2.10 mg/dL (1.7-2.3) 11/13/18 05:20 Total Bilirubin 0.40 mg/dL (0.1-1.2) 11/12/18 06:30 AST 17 units/L (5-40) 11/12/18 06:30 ALT 11 units/L (7-56) 11/12/18 06:30 Alkaline Phosphatase 72 units/L (35-129) 11/12/18 06:30 C-Reactive Protein 13.70 mg/dL (0.00-1.30) H 11/11/18 20:41 Total Protein 5.2 g/dL (6.3-8.2) L 11/12/18 06:30 Albumin 2.0 g/dL (3.9-5) L 11/12/18 06:30 Albumin/Globulin Ratio 0.6 % 11/12/18 06:30 TSH 0.900 mlU/mL (0.270-4.200) 11/11/18 09:55 Urine Color Mar[place] (Yellow) 11/11/18 10:22 Urine Turbidity Turbid (Clear) 11/11/18 10:22 Urine pH 8.0 (5.0-7.0) H 11/11/18 10:22 Ur Specific [place] 1.011 (1.003-1.030) 11/11/18 10:22 Urine Protein 100 mg/dl mg/dL (Negative) 11/11/18 10:22 Urine Glucose (UA) Neg mg/dL (Negative) 11/11/18 10:22 Urine Ketones Neg mg/dL (Negative) 11/11/18 10:22 Urine Blood Sm (Negative) 11/11/18 10:22 Urine Nitrite Neg (Negative) 11/11/18 10:22 Urine Bilirubin Neg (Negative) 11/11/18 10:22 Urine Urobilinogen < 2.0 mg/dL (<2.0) 11/11/18 10:22 Ur Leukocyte Esterase Lg (Negative) 11/11/18 10:22 Urine WBC (Auto) > 182.0 /HPF (0.0-6.0) H 11/11/18 10:22 Urine RBC (Auto) 27.0 /HPF (0.0-6.0) 11/11/18 10:22 Urine Bacteria (Auto) 3+ /HPF (Negative) 11/11/18 10:22 Urine WBC Clumps 3+ /HPF 11/11/18 10:22 Urine Mucus Few /HPF 11/11/18 10:22 Plasma/Serum Alcohol < 0.01 % (0-0.07) 11/11/18 09:55 Nutrition/Malnutrition Assess - Dietary Evaluation Nutrition/Malnutrition Findings: Nutrition Notes Start: 11/12/18 09:27 Freq: Status: Active Protocol: Document 11/16/18 10:44 CP (Rec: 11/16/18 10:46 CP [id number]) Co-Sign 11/16/18 10:44 LP Nutrition Notes Initial or Follow up Brief Note Current Diet TF - Glucerna 1.2 at 65ml/hr Labs/Tests POC Glu: 297 Pertinent Medications Lantus added Subjective/Other Information TF infusing at 55 mL/hr. Per chart, goal rate is 65 mL/hr. Per RN, rate will be increased to goal (65mL/hr) today. Percent of energy/protein needs met: 85% energy and pro Nutrition Intervention Follow-Up By: 11/18/18 Additional Comments F/U: TF goal rate increase, TF tolerance, BG labs
[2018-11-16] MEDS: NEURONTIN PO SCH (23:38)
--- NOTE | 2018-11-17 02:40 | XRay Report ---
FINAL REPORT PROCEDURE: XR CHEST 1V AP TECHNIQUE: Chest radiograph anteroposterior view. CPT 68353 HISTORY: follow up respiratory failure COMPARISON: 11/16/2018 FINDINGS: Heart: Normal. Mediastinum/Vessels: Normal. Lungs/Pleural space: There is suboptimal inspiration. There are no acute infiltrates. There is no ple ural effusion or pneumothorax.. Bony thorax: No acute osseous abnormality. Life support devices: There is right-sided central venous catheter. The tip is in the superior vena c ramiro.. IMPRESSION: The heart size is normal.. There is suboptimal inspiration. There are no acute infiltrates. There is no pleural effusion or pneu mothorax.. There is right-sided central venous catheter. The tip is in the superior vena cava..
[2018-11-17] MEDS: DUONEB *Not for PRN Use IH SCH ×3 (03:39→15:19)
[2018-11-17 05:00] LABS: Hematocrit 32.4 % (35.5-45.6); Hemoglobin 11.2 gm/dl (11.8-15.2); Mean Corpuscular HGB Conc 35 % (32-34); Mean Corpuscular Volume 90 fl (84-94); Platelet Count 104 K/mm3 (140-440); Red Blood Count 3.58 M/mm3 (3.65-5.03); Red Cell Distribution Width 13.7 % (13.2-15.2)
[2018-11-17 05:20] LABS: BUN/Creatinine Ratio 53; Blood Urea Nitrogen 21 mg/dL (9-20); Calcium 7.7 mg/dL (8.4-10.2); Hemolysis Index 2
[2018-11-17 05:52] LABS: Basophils % (Manual) 0 % (0.0-1.8); Eosinophils % (Manual) 0 % (0.0-4.3); Total Cells Counted 100
[2018-11-17 05:53] LABS: Anisocytosis 1+; Ovalocytes 1+; Platelet Estimate Appears Decreased; Target Cells Rare; Tear Drop Cells Rare
[2018-11-17] MEDS: HumaLOG SUB-Q SCH ×3 (06:05→18:19)
[2018-11-17] MEDS: SOLU-Medrol IV SCH ×3 (06:05→22:59)
[2018-11-17] MEDS ORDERED: DUONEB *Not for PRN Use IH SCH (08:00)
[2018-11-17] MEDS: PROAMATINE PO SCH ×3 (09:05→22:59)
--- NOTE | 2018-11-17 09:45 | Progress Note ---
Assessment and Plan - Patient Problems (1) ARF (acute renal failure) with tubular necrosis Current Visit: Yes Status: Acute Plan to address problem: Overall renal function is improved. Will monitor. (2) Altered mental status Current Visit: Yes Status: Acute Plan to address problem: Secondary to toxic/metabolic encephalopathy. It seems the patient is es sentially back to his baseline at this time. (3) Hydronephrosis Current Visit: Yes Status: Acute Plan to address problem: slade placement with adequate urine output noted. (4) Hypernatremia Current Visit: Yes Status: Acute Plan to address problem: Hyponatremia is resolving at this time. We'll continue to monitor. (5) Sepsis Current Visit: Yes Status: Acute Qualifiers: Sepsis type: sepsis due to unspecified organism Qualified Code(s): A41.9 - Sepsis, unspecified organism Plan to address problem: Weaned off pressors, on antibiotics. ID on case and will appreciate further recommendations/input (6) Acute respiratory failure with hypoxemia Current Visit: No Status: Acute Plan to address problem: Patient has been extubated at this time. (7) Hypophosphatemia Current Visit: Yes Status: Acute Plan to address problem: Replete per protocol. Subjective Date of service: 11/17/18 Principal diagnosis: Acute Hypoxemic Resp Failure; Severe sepsis with shock; UTI; BETHEL Interval history: No acute events overnight. Patient is extubated on oxygen by nasal cannula and tolerating well. Renal function stable at this time. Objective - Vital Signs Vital signs: Vital Signs - 12hr 11/16/18 11/16/18 11/16/18 22:00 22:31 23:00 Temperature Pulse Rate 97 H 107 H 100 H Pulse Rate [ Anterior Bilateral Throughout] Respiratory 21 19 18 Rate Respiratory Rate [Anterior Bilateral Throughout] Blood Pressure 95/54 95/54 81/52 O2 Sat by Pulse 94 95 95 Oximetry 11/16/18 11/16/18 11/17/18 23:31 23:51 00:00 Temperature 98.4 F Pulse Rate 92 H Pulse Rate [ Anterior Bilateral Throughout] Respiratory 21 Rate Respiratory Rate [Anterior Bilateral Throughout] Blood Pressure 95/54 O2 Sat by Pulse 96 93 Oximetry 11/17/18 11/17/18 11/17/18 00:01 00:31 01:01 Temperature Pulse Rate 89 90 96 H Pulse Rate [ Anterior Bilateral Throughout] Respiratory 19 22 21 Rate Respiratory Rate [Anterior Bilateral Throughout] Blood Pressure 102/63 102/63 102/63 O2 Sat by Pulse 96 95 87 Oximetry 11/17/18 11/17/18 11/17/18 01:31 02:01 02:31 Temperature Pulse Rate 77 76 73 Pulse Rate [ Anterior Bilateral Throughout] Respiratory 21 18 18 Rate Respiratory Rate [Anterior Bilateral Throughout] Blood Pressure 103/61 111/68 111/68 O2 Sat by Pulse 93 93 97 Oximetry 11/17/18 11/17/18 11/17/18 03:00 03:31 04:00 Temperature 98.9 F Pulse Rate 73 73 74 Pulse Rate [ Anterior Bilateral Throughout] Respiratory 19 16 19 Rate Respiratory Rate [Anterior Bilateral Throughout] Blood Pressure 109/72 109/72 109/72 O2 Sat by Pulse 94 94 82 L Oximetry 11/17/18 11/17/18 11/17/18 04:31 05:00 05:31 Temperature Pulse Rate 75 68 68 Pulse Rate [ Anterior Bilateral Throughout] Respiratory 13 15 16 Rate Respiratory Rate [Anterior Bilateral Throughout] Blood Pressure 108/71 110/62 108/71 O2 Sat by Pulse 96 93 Oximetry 11/17/18 11/17/18 11/17/18 06:00 06:31 07:00 Temperature Pulse Rate 70 70 78 Pulse Rate [ Anterior Bilateral Throughout] Respiratory 16 17 13 Rate Respiratory Rate [Anterior Bilateral Throughout] Blood Pressure 104/64 104/64 104/72 O2 Sat by Pulse 94 93 94 Oximetry 11/17/18 11/17/18 11/17/18 07:31 08:00 08:31 Temperature 98.2 F Pulse Rate 60 75 75 Pulse Rate [ Anterior Bilateral Throughout] Respiratory 16 15 16 Rate Respiratory Rate [Anterior Bilateral Throughout] Blood Pressure 104/64 95/62 95/62 O2 Sat by Pulse 94 95 95 Oximetry 11/17/18 09:04 Temperature Pulse Rate Pulse Rate [ 78 Anterior Bilateral Throughout] Respiratory Rate Respiratory 17 Rate [Anterior Bilateral Throughout] Blood Pressure O2 Sat by Pulse Oximetry - General Appearance General appearance: well-developed, well-nourished EENT: ATNC, PERRL Neck: no JVD, no thyromegaly Respiratory: Present: Clear to Ascultation Cardiology: regular, S1S2 Gastrointestinal: normal, normoactive bowel sounds Integumentary: warm and dry Neurologic: no focal deficit Musculoskeletal: other (negative edema) Psychiatric: cooperative - Lab 11/17/18 04:40 11/17/18 04:40 Most recent lab results Calcium 7.7 mg/dL (8.4-10.2) L 11/17/18 04:40 Phosphorus 2.50 mg/dL (2.5-4.5) D 11/14/18 05:30 Magnesium 2.10 mg/dL (1.7-2.3) 11/13/18 05:20 - Allied health notes Allied health notes reviewed: nursing Medications & Allergies - Medications Allergies/Adverse Reactions: Allergies No Known Allergies Allergy (Verified 02/27/15 00:48) Home Medications: Home Medications Medication Instructions Recorded Confirmed Last Taken Type AtorvaSTATin [Lipitor] 40 mg FEEDTUBE QHS 06/21/16 11/11/18 06/20/16 History Ascorbic Acid [Vitamin C] 500 mg FEEDTUBE QDAY 07/14/18 11/11/18 Unknown History Aspirin [Adult Aspirin Regimen] 81 mg FEEDTUBE DAILY 07/14/18 11/11/18 Unknown History Ipratropium/Albuterol Sulfate 1 ampul IH Q6HR 07/14/18 11/11/18 Unknown History [DUONEB *Not for PRN Use*] Multivitamin [Multiple Vitamins] 1 each FEEDTUBE DAILY 07/14/18 11/11/18 Unknown History Protein Supplement [Promod] 30 ml FEEDTUBE Q8H 07/14/18 11/11/18 Unknown History Acetaminophen [Tylenol] 650 mg FEEDTUBE Q4HR PRN 11/11/18 11/11/18 Unknown H istory Gabapentin [Neurontin] 300 mg FEEDTUBE BID 11/11/18 11/11/18 Unknown History L. Acidophilus/L.bulgaricus 1 each FEEDTUBE QAM 11/11/18 11/11/18 Unknown History [Lactobacillus Tablet] Omeprazole 20 mg FEEDTUBE QAM 11/11/18 11/11/18 Unknown History Potassium Chloride 20 meq FEEDTUBE QDAY 11/11/18 11/11/18 Unknown History guaiFENesin DM [Robitussin Dm] 10 ml FEEDTUBE Q6HR PRN 11/11/18 11/11/18 Unknown History levoFLOXacin [Levaquin TAB] 500 mg FEEDTUBE QDAY 02/21/19 02/21/19 Unknown History Active Medications: Generic Name Dose Route Start Last Admin Trade Name Freq PRN Reason Stop Dose Admin Acetaminophen 650 mg 11/11/18 16:44 Tylenol FEEDTUBE Q4H PRN Pain, Mild (1-3) Albuterol 2.5 mg 11/11/18 15:42 Proventil IH Q3HRT PRN Shortness Of Breath Albuterol/Ipratropium 1 ampul 11/12/18 16:00 11/17/18 09:03 Duoneb *Not For Prn Use* IH 1 ampul Q8HRT SHIRA Administration Lipase/Protease/Amylase 1 each 11/12/18 14:[address] 10,500 Unit FEEDTUBE PRN PRN For Clogged Feeding Tube Ascorbic Acid 500 mg 11/12/18 10:00 11/16/18 10:02 Vitamin C FEEDTUBE 500 mg QDAY SHIRA Administration Atorvastatin Calcium 40 mg 11/11/18 22:00 11/16/18 23:37 Lipitor FEEDTUBE 40 mg QHS SHIRA Administration Gabapentin 300 mg 11/12/18 22:00 11/16/18 23:38 Neurontin PO 300 mg QHS SHIRA Administration Guaifenesin 10 ml 11/11/18 15:53 Guaifenesin Dm Syrup FEEDTUBE Q6HR PRN Cough Heparin Sodium (Porcine) 5,000 unit 11/12/18 14:00 11/16/18 23:37 Heparin SUB-Q 5,000 unit Q12HR SHIRA Administration Hydrophilic Ointment 1 applic 11/11/18 16:03 Vaseline Lip Therapy TP Q2HR PRN Dry Lips Cefepime HCl 2 gm in 100 mls @ 200 mls/hr 11/11/18 22:00 11/16/18 23:38 Maxipime/Ns 2 Gm/100 Ml IV 200 mls/hr Q12HR SHIRA Administration Protocol Norepinephrine 4 mg in 250 mls @ 7.5 mls/hr 11/11/18 16:36 11/16/18 11:30 Levophed Drip 4 Mg/Ns 250 Ml IV 0 mcg/min TITR SHIRA 0 mls/hr Titration Protocol 2 MCG/MIN Insulin Glargine 10 units 11/15/18 13:00 11/16/18 10:00 Lantus SUB-Q 10 units DAILY SHIRA Administration Insulin Human Lispro 0 unit 11/12/18 14:00 11/17/18 06:05 Humalog SUB-Q 3 unit Q6HR SHIRA Administration Protocol Lactobacillus Acidophilus 1 each 11/12/18 10:00 11/16/18 10:01 Floranex PO 1 each QAM SHIRA Administration Lansoprazole 30 mg 11/12/18 10:00 11/16/18 10:03 Prevacid Solutab FEEDTUBE 30 mg QDAY SHIRA Administration Linezolid 600 mg 11/16/18 10:00 11/16/18 23:42 Zyvox PO 600 mg BID SHIRA Administration Methylprednisolone Sodium Succinate 60 mg 11/12/18 14:00 11/17/18 06:05 Solu-Medrol IV 60 mg Q8HR SHIRA Administration Midodrine 10 mg 11/16/18 12:00 11/16/18 23:37 Proamatine PO 10 mg TID SHIRA Administration Multi-Ingred Cream/Lotion/Oil/Oint 1 applic 11/11/18 16:03 Artificial Tears Ophth Oint OU Q4HR PRN Dry Eye(s) Multivitamins 5 ml 11/12/18 10:00 11/16/18 10:02 Centrum Liq PO 5 ml QDAY SHIRA Administration Potassium Chloride 20 meq 11/12/18 10:00 11/16/18 10:02 Potassium Chloride FEEDTUBE 20 meq QDAY SHIRA Administration Simple Syrup 15 ml 11/12/18 14:42 Simple Syrup FEEDTUBE PRN PRN Hypoglycemia Simple Syrup 30 ml 11/12/18 14:42 Simple Syrup FEEDTUBE PRN PRN Hypoglycemia Sodium Bicarbonate 325 mg 11/12/18 14:42 Sodium Bicarbonate FEEDTUBE PRN PRN For Clogged Feeding Tube Sodium Chloride 10 ml 11/11/18 22:00 11/16/18 23:36 Sodium Chloride Flush Syringe 10 Ml IV 10 ml BID SHIRA Administration Sodium Chloride 10 ml 11/11/18 15:42 11/14/18 13:49 Sodium Chloride Flush Syringe 10 Ml IV 10 ml PRN PRN Administration LINE FLUSH
[2018-11-17] MEDS: MAXIPIME/NS 2 GM/100 ML 2 GM/100 ML BAG IV SCH (10:57)
[2018-11-17] MEDS: LANTUS SUB-Q SCH (10:57)
[2018-11-17] MEDS: Centrum Liq PO SCH (10:57)
[2018-11-17] MEDS: POTASSIUM CHLORIDE FEEDTUBE SCH (10:57)
[2018-11-17] MEDS: ZYVOX PO SCH ×2 (10:58→23:00)
[2018-11-17] MEDS: PREVACID SOLUTAB FEEDTUBE SCH (10:58)
[2018-11-17] MEDS: HEPARIN SUB-Q SCH ×2 (10:58→22:58)
[2018-11-17] MEDS: FLORANEX PO SCH (10:58)
[2018-11-17] MEDS: SODIUM CHLORIDE FLUSH SYRINGE 10 ML IV SCH ×2 (10:59→23:01)
--- NOTE | 2018-11-17 12:45 | Progress Note ---
Assessment and Plan Acute hypoxemic respiratory failure, on mechanical ventilatory support. Acute on chronic encephalopathy. Severe sepsis with shock, presumably due to UTI Urinary tract infection. Acute kidney injury. Likely bladder outlet obstruction. Bilateral hydronephrosis. Nephrolithiasis. History of diabetes. Hypertension. Chronic obstructive lung disease. Prior cerebrovascular accident with left hemiparesis. Oropharyngeal dysphagia. Metabolic acidosis. Hyponatremia, moderate. Adult failure to thrive. - begin IVNS at 500 mls/hr X 1 liter - begin midodrine 10 mg p.o. tid - continue aspiration precautions - continue to wean levophed for MAP > 65 mmHg (on 2 mics/min) - continue bronchodilators with pulmonary hygiene per RT - nephrology evaluation ongoing - continue slade catheter and follow urologist recommendations - continue enteral nutrition as tolerated - PT/OT/ROM exercises as tolerated - mobility protocol for pressure ulcer prophylaxis - continue GI & VTE prophylaxis - continue other care per attending / other consultants ...... re-evaluate in am & prn ...... tentative transfer to [facility] The high probability of a clinically significant, sudden or life threatening deterioration of the [cardiac, respiratory and neurologic] system(s) required my full and direct attention, intervention and personal management. The aggregate critical care time was [31] minutes. This time is in addition to time spent performing reported procedures but includes the following: [x] Data Review and interpretation [x] Patient assessment and monitoring of vital signs [x] Documentation [x] Medication orders and management Subjective Date of service: 11/17/18 Principal diagnosis: Acute Hypoxemic Resp Failure; Severe sepsis with shock; UTI; BETHEL Interval history: Patient is seen today for: Acute hypoxemic respiratory failure on mechanical ventilatory support; Acute on chronic encephalopathy; Severe sepsis with shock, presumably due to UTI; Urinary tract infection; Acute kidney injury. Seen and examined at bedside; 24hour events reviewed; nursing and respiratory care staff consulted; no adverse overnight events reported to me; resting peacefully in bed; Objective Vital Signs - 12hr 11/17/18 11/17/18 11/17/18 01:01 01:31 02:01 Temperature Pulse Rate 96 H 77 76 Pulse Rate [ Anterior Bilateral Throughout] Respiratory 21 21 18 Rate Respiratory Rate [Anterior Bilateral Throughout] Blood Pressure 102/63 103/61 111/68 O2 Sat by Pulse 87 93 93 Oximetry 11/17/18 11/17/1819 02:31 03:00 03:31 Temperature Pulse Rate 73 73 73 Pulse Rate [ Anterior Bilateral Throughout] Respiratory 18 19 16 Rate Respiratory Rate [Anterior Bilateral Throughout] Blood Pressure 111/68 109/72 109/72 O2 Sat by Pulse 97 94 94 Oximetry 11/17/18 11/17/18 11/17/18 04:00 04:31 05:00 Temperature 98.9 F Pulse Rate 74 75 68 Pulse Rate [ Anterior Bilateral Throughout] Respiratory 19 13 15 Rate Respiratory Rate [Anterior Bilateral Throughout] Blood Pressure 109/72 108/71 110/62 O2 Sat by Pulse 82 L 96 Oximetry 11/17/18 11/17/18 11/17/18 05:31 06:00 06:31 Temperature Pulse Rate 68 70 70 Pulse Rate [ Anterior Bilateral Throughout] Respiratory 16 16 17 Rate Respiratory Rate [Anterior Bilateral Throughout] Blood Pressure 108/71 104/64 104/64 O2 Sat by Pulse 93 94 93 Oximetry 11/17/18 11/17/18 11/17/18 07:00 07:31 08:00 Temperature 98.2 F Pulse Rate 78 60 75 Pulse Rate [ Anterior Bilateral Throughout] Respiratory 13 16 15 Rate Respiratory Rate [Anterior Bilateral Throughout] Blood Pressure 104/72 104/64 95/62 O2 Sat by Pulse 94 94 95 Oximetry 11/17/18 11/17/18 11/17/18 08:31 09:00 09:04 Temperature Pulse Rate 75 77 Pulse Rate [ 78 Anterior Bilateral Throughout] Respiratory 16 15 Rate Respiratory 17 Rate [Anterior Bilateral Throughout] Blood Pressure 95/62 104/62 O2 Sat by Pulse 95 95 Oximetry 11/17/18 11/17/18 11/17/18 09:14 09:31 10:01 Temperature Pulse Rate 75 77 Pulse Rate [ 75 Anterior Bilateral Throughout] Respiratory 16 13 Rate Respiratory 17 Rate [Anterior Bilateral Throughout] Blood Pressure 95/62 95/62 O2 Sat by Pulse 95 96 Oximetry 11/17/18 11/17/18 11/17/18 10:30 11:01 11:31 Temperature Pulse Rate 78 79 82 Pulse Rate [ Anterior Bilateral Throughout] Respiratory 18 17 21 Rate Respiratory Rate [Anterior Bilateral Throughout] Blood Pressure 111/73 96/55 96/55 O2 Sat by Pulse 96 93 92 Oximetry 11/17/18 12:01 Temperature Pulse Rate 76 Pulse Rate [ Anterior Bilateral Throughout] Respiratory 16 Rate Respiratory Rate [Anterior Bilateral Throughout] Blood Pressure 106/59 O2 Sat by Pulse 96 Oximetry Constitutional: appears uncomfortable, other (elderly, chronically ill looking CM, normocephalic and atraumatic with increased respiratory effort at rest) Eyes: non-icteric ENT: oropharynx moist, other (extubated) Neck: supple, no lymphadenopathy, no JVD, other (no thyromegaly) Effort: mildly labored Ascultation: Bilateral: diminished breath sounds, rhonchi Percussion: Bilateral: not dull Cardiovascular: regular rate and rhythm Gastrointestinal: normoactive bowel sounds, soft, non-tender, non-distended Integumentary: rash, other (poor turgor; decubitus ulcer) Extremities: no edema, pink and warm, pulses normal, other (? early digital gangrene) Neurologic: non-focal exam, unable to assess Psychiatric: other (unable to assess) CBC and BMP: 11/17/18 04:40 11/17/18 04:40 ABG, PT/INR, D-dimer: ABG POC ABG pH 7.339 (7.35-7.45) L 11/15/18 14:26 POC ABG pCO2 35.6 (35-45) 11/15/18 14:26 POC ABG pO2 102 (80-105) 11/15/18 14:26 POC ABG HCO3 19.1 11/15/18 14:26 POC ABG Total CO2 20 11/15/18 14:26 POC ABG O2 Sat 98 11/15/18 14:26 PT/INR, D-dimer D-Dimer 2061.41 ng/mlDDU (0-234) H 11/11/18 20:41 Abnormal lab findings: Abnormal Labs 11/11/18 11/11/18 11/11/18 09:55 09:55 10:22 WBC RBC Hgb Hct MCHC 35 H Plt Count Lymph % (Auto) 2.9 L [place] % (Auto) 9.8 H Lymph # 0.3 L [place] # 1.0 H Seg Neutrophils % 87.0 H Seg Neuts % (Manual) Lymphocytes % (Manual) Seg Neutrophils # 8.7 H Seg Neutrophils # Man Lymphocytes # (Manual) D-Dimer POC ABG pH POC ABG pCO2 POC ABG pO2 Sodium 129 L Chloride 95.5 L Carbon Dioxide 18 L BUN 155 H Creatinine 3.1 H Glucose 196 H POC Glucose Calcium Phosphorus C-Reactive Protein Total Protein Albumin 2.4 L Urine pH 8.0 H Urine WBC (Auto) > 182.0 H 11/11/18 11/11/18 11/11/18 12:04 18:36 20:41 WBC RBC Hgb Hct MCHC Plt Count Lymph % (Auto) [place] % (Auto) Lymph # [place] # Seg Neutrophils % Seg Neuts % (Manual) Lymphocytes % (Manual) Seg Neutrophils # Seg Neutrophils # Man Lymphocytes # (Manual) D-Dimer POC ABG pH 7.335 L 7.256 L POC ABG pCO2 34.8 L POC ABG pO2 55 L 74 L Sodium Chloride Carbon Dioxide BUN Creatinine Glucose POC Glucose Calcium Phosphorus C-Reactive Protein 13.70 H Total Protein Albumin Urine pH Urine WBC (Auto) 11/11/18 11/11/18 11/12/18 20:41 21:37 04:20 WBC RBC Hgb Hct MCHC Plt Count Lymph % (Auto) [place] % (Auto) Lymph # [place] # Seg Neutrophils % Seg Neuts % (Manual) Lymphocytes % (Manual) Seg Neutrophils # Seg Neutrophils # Man Lymphocytes # (Manual) D-Dimer 2061.41 H POC ABG pH 7.328 L POC ABG pCO2 32.9 L 27.6 L POC ABG pO2 170 H Sodium Chloride Carbon Dioxide BUN Creatinine Glucose POC Glucose Calcium Phosphorus C-Reactive Protein Total Protein Albumin Urine pH Urine WBC (Auto) 11/12/18 11/12/18 11/12/18 05:14 06:30 06:30 WBC 15.3 H RBC Hgb Hct 34.9 L MCHC Plt Count Lymph % (Auto) [place] % (Auto) Lymph # [place] # Seg Neutrophils % Seg Neuts % (Manual) 94.0 H Lymphocytes % (Manual) 1.0 L Seg Neutrophils # 13.7 H Seg Neutrophils # Man 14.4 H Lymphocytes # (Manual) 0.2 L D-Dimer POC ABG pH POC ABG pCO2 POC ABG pO2 Sodium Chloride 113.2 H Carbon Dioxide 19 L BUN 93 H Creatinine Glucose 182 H POC Glucose 176 H Calcium 7.9 L Phosphorus C-Reactive Protein Total Protein 5.2 L Albumin 2.0 L Urine pH Urine WBC (Auto) 11/12/18 11/12/18 11/13/18 12:23 18:20 00:17 WBC RBC Hgb Hct MCHC Plt Count Lymph % (Auto) [place] % (Auto) Lymph # [place] # Seg Neutrophils % Seg Neuts % (Manual) Lymphocytes % (Manual) Seg Neutrophils # Seg Neutrophils # Man Lymphocytes # (Manual) D-Dimer POC ABG pH POC ABG pCO2 POC ABG pO2 Sodium Chloride Carbon Dioxide BUN Creatinine Glucose POC Glucose 201 H 218 H 222 H Calcium Phosphorus C-Reactive Protein Total Protein Albumin Urine pH Urine WBC (Auto) 11/13/18 11/13/18 11/13/18 04:41 04:53 05:20 WBC RBC 3.62 L Hgb 11.3 L Hct 32.8 L MCHC Plt Count Lymph % (Auto) [place] % (Auto) Lymph # [place] # Seg Neutrophils % Seg Neuts % (Manual) 90.0 H Lymphocytes % (Manual) 5.0 L Seg Neutrophils # Seg Neutrophils # Man 8.8 H Lymphocytes # (Manual) 0.5 L D-Dimer POC ABG pH POC ABG pCO2 31.0 L POC ABG pO2 Sodium Chloride Carbon Dioxide BUN Creatinine Glucose POC Glucose 238 H Calcium Phosphorus C-Reactive Protein Total Protein Albumin Urine pH Urine WBC (Auto) 11/13/18 11/13/18 11/13/18 05:20 11:58 17:47 WBC RBC Hgb Hct MCHC Plt Count Lymph % (Auto) [place] % (Auto) Lymph # [place] # Seg Neutrophils % Seg Neuts % (Manual) Lymphocytes % (Manual) Seg Neutrophils # Seg Neutrophils # Man Lymphocytes # (Manual) D-Dimer POC ABG pH POC ABG pCO2 POC ABG pO2 Sodium 149 H Chloride 120.8 H Carbon Dioxide 18 L BUN 52 H Creatinine 0.7 L Glucose 247 H POC Glucose 306 H 217 H Calcium 7.8 L Phosphorus 1.90 L C-Reactive Protein Total Protein Albumin Urine pH Urine WBC (Auto) 11/13/18 11/14/18 11/14/18 23:05 04:24 05:30 WBC RBC Hgb Hct MCHC Plt Count Lymph % (Auto) [place] % (Auto) Lymph # [place] # Seg Neutrophils % Seg Neuts % (Manual) Lymphocytes % (Manual) Seg Neutrophils # Seg Neutrophils # Man Lymphocytes # (Manual) D-Dimer POC ABG pH 7.294 L POC ABG pCO2 POC ABG pO2 Sodium 150 H Chloride 121.3 H Carbon Dioxide BUN 40 H Creatinine 0.6 L Glucose 241 H POC Glucose 207 H Calcium 7.9 L Phosphorus C-Reactive Protein Total Protein Albumin Urine pH Urine WBC (Auto) 11/14/18 11/14/18 11/14/18 05:30 05:32 11:36 WBC RBC 3.22 L Hgb 10.0 L Hct 29.7 L MCHC Plt Count 137 L Lymph % (Auto) [place] % (Auto) Lymph # [place] # Seg Neutrophils % Seg Neuts % (Manual) 89.0 H Lymphocytes % (Manual) 3.0 L Seg Neutrophils # Seg Neutrophils # Man Lymphocytes # (Manual) 0.2 L D-Dimer POC ABG pH POC ABG pCO2 POC ABG pO2 Sodium Chloride Carbon Dioxide BUN Creatinine Glucose POC Glucose 235 H 277 H Calcium Phosphorus C-Reactive Protein Total Protein Albumin Urine pH Urine WBC (Auto) 11/14/18 11/14/18 11/15/18 17:52 23:48 05:20 WBC RBC Hgb Hct MCHC Plt Count Lymph % (Auto) [place] % (Auto) Lymph # [place] # Seg Neutrophils % Seg Neuts % (Manual) Lymphocytes % (Manual) Seg Neutrophils # Seg Neutrophils # Man Lymphocytes # (Manual) D-Dimer POC ABG pH POC ABG pCO2 POC ABG pO2 Sodium Chloride Carbon Dioxide BUN Creatinine Glucose POC Glucose 257 H 243 H 250 H Calcium Phosphorus C-Reactive Protein Total Protein Albumin Urine pH Urine WBC (Auto) 11/15/18 11/15/18 11/15/18 09:55 12:51 14:26 WBC RBC Hgb Hct MCHC Plt Count Lymph % (Auto) [place] % (Auto) Lymph # [place] # Seg Neutrophils % Seg Neuts % (Manual) Lymphocytes % (Manual) Seg Neutrophils # Seg Neutrophils # Man Lymphocytes # (Manual) D-Dimer POC ABG pH 7.339 L POC ABG pCO2 POC ABG pO2 Sodium Chloride 111.5 H Carbon Dioxide BUN 30 H Creatinine 0.5 L Glucose 239 H POC Glucose 254 H Calcium 7.8 L Phosphorus C-Reactive Protein Total Protein Albumin Urine pH Urine WBC (Auto) 11/15/18 11/15/18 11/16/18 17:49 23:54 05:04 WBC RBC Hgb Hct MCHC Plt Count Lymph % (Auto) [place] % (Auto) Lymph # [place] # Seg Neutrophils % Seg Neuts % (Manual) Lymphocytes % (Manual) Seg Neutrophils # Seg Neutrophils # Man Lymphocytes # (Manual) D-Dimer POC ABG pH POC ABG pCO2 POC ABG pO2 Sodium Chloride Carbon Dioxide BUN Creatinine Glucose POC Glucose 179 H 146 H 297 H Calcium Phosphorus C-Reactive Protein Total Protein Albumin Urine pH Urine WBC (Auto) 11/16/18 11/16/18 11/16/18 09:08 12:20 17:16 WBC RBC Hgb Hct MCHC Plt Count Lymph % (Auto) [place] % (Auto) Lymph # [place] # Seg Neutrophils % Seg Neuts % (Manual) Lymphocytes % (Manual) Seg Neutrophils # Seg Neutrophils # Man Lymphocytes # (Manual) D-Dimer POC ABG pH POC ABG pCO2 POC ABG pO2 Sodium Chloride Carbon Dioxide BUN Creatinine Glucose POC Glucose 244 H 253 H 221 H Calcium Phosphorus C-Reactive Protein Total Protein Albumin Urine pH Urine WBC (Auto) 11/16/18 11/17/18 11/17/18 23:30 04:40 04:40 WBC RBC 3.58 L Hgb 11.2 L Hct 32.4 L MCHC 35 H Plt Count 104 L Lymph % (Auto) [place] % (Auto) Lymph # [place] # Seg Neutrophils % Seg Neuts % (Manual) 98.0 H Lymphocytes % (Manual) 1.0 L Seg Neutrophils # Seg Neutrophils # Man 9.9 H Lymphocytes # (Manual) 0.1 L D-Dimer POC ABG pH POC ABG pCO2 POC ABG pO2 Sodium Chloride Carbon Dioxide BUN 21 H Creatinine 0.4 L Glucose 168 H POC Glucose 241 H Calcium 7.7 L Phosphorus C-Reactive Protein Total Protein Albumin Urine pH Urine WBC (Auto) 11/17/18 05:42 WBC RBC Hgb Hct MCHC Plt Count Lymph % (Auto) [place] % (Auto) Lymph # [place] # Seg Neutrophils % Seg Neuts % (Manual) Lymphocytes % (Manual) Seg Neutrophils # Seg Neutrophils # Man Lymphocytes # (Manual) D-Dimer POC ABG pH POC ABG pCO2 POC ABG pO2 Sodium Chloride Carbon Dioxide BUN Creatinine Glucose POC Glucose 210 H Calcium Phosphorus C-Reactive Protein Total Protein Albumin Urine pH Urine WBC (Auto) Allied health notes reviewed: nursing
[2018-11-17] MEDS: SODIUM CHLORIDE FLUSH SYRINGE 10 ML IV PRN (13:14)
--- NOTE | 2018-11-17 14:27 | Progress Note ---
Assessment and Plan Assessment and plan: 58 YO Male Long Term Resident with HTN, DM, COPD, CVA with LHP, Contracture, and Dysphagia S/P G tube placement, DM, COPD, presents to ED for evaluation. Pt is stuporous and unable to provide history. History taken from SNF staff. As per SNF staff, the patient was found to be confused and nonresponsive. Pt seen and found to have Sepsis secondary to UTI, Acute Renal Failure, Acute Hypoxemic Respiratory Failure. Pt admitted to ICU and initiated on sepsis protocol. Severe Sepsis with shock. F/U Blood cx. sec UTI/PNA. Cont. Iv abx. Patient is off pressors for the last 24 hours. ID following Acute hypoxemic resp failure. Cont. per Pulm. Etiology sec RLL PNA. However, elevated d-dimer--consider PE but Doppler negative. CTA chest when hemodynamically stable. Check Echo. patient extubated 11/15/18 UTi. Cont IV abx. F/U cx. CTAP (11-11-18) bilat hydro (no obstructing stone), bladder mass,Cystitis. Urology following and recommends conservative management. Toxic metabolic encephalopathy; looks like he is at baseline ARF. Etiology likely secondary to BETHEL secondary to atn/sepsis. Resolved RLL Pneumonia. Cont Abx. Tracheal asp 11/11/2018 VISA (VANCOMYCIN INTERMEDIATE STAPH AUREUS). On linezolid. ID following. DVT prophylaxis - On heparin Disposition - Transferred to [facility]. History Interval history: Patient was seen and evaluated this morning, patient was alert but not communicative, doesn't follow commands. Hospitalist Physical - Physical exam Narrative exam: Patientwas extubated 11/15/18 The patient appeared well nourished and normally developed. Vital signs as documented. Head exam is unremarkable. No scleral icterus . Neck is without jugular venous distension, thyromegaly, or carotid bruits. Lungs are clear to auscultation. Cardiac exam reveals regular rate and Rhythm. First and second heart sounds normal. No murmurs, rubs or gallops. Abdominal exam reveals normal bowel sounds, no masses, no organomegaly and no aortic enlargement. Extremities contracted right upper extremity PARTS DEPARTMENT MANAGER: Alert but not able to communicate because he is intubated. - Constitutional Vitals: Temp Pulse Resp BP Pulse Ox 97 F L 82 22 129/72 93 11/17/18 12:00 11/17/18 14:01 11/17/18 14:01 11/17/18 14:01 11/17/18 14:01 General appearance: Present: cachectic, other (intubated on mech ventilation) Results - Labs CBC & Chem 7: 11/17/18 04:40 11/17/18 04:40 Labs: Laboratory Last Values WBC 10.1 K/mm3 (4.5-11.0) 11/17/18 04:40 RBC 3.58 M/mm3 (3.65-5.03) L 11/17/18 04:40 Hgb 11.2 gm/dl (11.8-15.2) L 11/17/18 04:40 Hct 32.4 % (35.5-45.6) L 11/17/18 04:40 MCV 90 fl (84-94) 11/17/18 04:40 MCH 31 pg (28-32) 11/17/18 04:40 MCHC 35 % (32-34) H 11/17/18 04:40 RDW 13.7 % (13.2-15.2) 11/17/18 04:40 Plt Count 104 K/mm3 (140-440) L 11/17/18 04:40 Lymph % (Auto) 2.9 % (13.4-35.0) L 11/11/18 09:55 [place] % (Auto) 5.7 % (0.0-7.3) 11/12/18 06:30 Eos % (Auto) 0.0 % (0.0-4.3) 11/12/18 06:30 Baso % (Auto) 0.3 % (0.0-1.8) 11/11/18 09:55 Lymph # 0.3 K/mm3 (1.2-5.4) L 11/11/18 09:55 [place] # 0.8 K/mm3 (0.0-0.8) 11/12/18 06:30 Eos # 0.0 K/mm3 (0.0-0.4) 11/12/18 06:30 Baso # 0.0 K/mm3 (0.0-0.1) 11/12/18 06:30 Add Manual Diff Complete 11/17/18 04:40 Total Counted 100 11/17/18 04:40 Seg Neutrophils % Websphere Developer 11/17/18 04:40 Seg Neuts % (Manual) 98.0 % (40.0-70.0) H 11/17/18 04:40 Band Neutrophils % 0 % 11/17/18 04:40 Lymphocytes % (Manual) 1.0 % (13.4-35.0) L 11/17/18 04:40 Reactive Lymphs % (Man) 0 % 11/17/18 04:40 Monocytes % (Manual) 1.0 % (0.0-7.3) 11/17/18 04:40 Eosinophils % (Manual) 0 % (0.0-4.3) 11/17/18 04:40 Basophils % (Manual) 0 % (0.0-1.8) 11/17/18 04:40 Metamyelocytes % 0 % 11/17/18 04:40 Myelocytes % 0 % 11/17/18 04:40 Promyelocytes % 0 % 11/17/18 04:40 Blast Cells % 0 % 11/17/18 04:40 Nucleated RBC % Not Reportable 11/17/18 04:40 Seg Neutrophils # 13.7 K/mm3 (1.8-7.7) H 11/12/18 06:30 Seg Neutrophils # Man 9.9 K/mm3 (1.8-7.7) H 11/17/18 04:40 Band Neutrophils # 0.0 K/mm3 11/17/18 04:40 Lymphocytes # (Manual) 0.1 K/mm3 (1.2-5.4) L 11/17/18 04:40 Abs React Lymphs (Man) 0.0 K/mm3 11/17/18 04:40 Monocytes # (Manual) 0.1 K/mm3 (0.0-0.8) 11/17/18 04:40 Eosinophils # (Manual) 0.0 K/mm3 (0.0-0.4) 11/17/18 04:40 Basophils # (Manual) 0.0 K/mm3 (0.0-0.1) 11/17/18 04:40 Metamyelocytes # 0.0 K/mm3 11/17/18 04:40 Myelocytes # 0.0 K/mm3 11/17/18 04:40 Promyelocytes # 0.0 K/mm3 11/17/18 04:40 Blast Cells # 0.0 K/mm3 11/17/18 04:40 WBC Morphology Not Reportable 11/17/18 04:40 Hypersegmented Neuts Not Reportable 11/17/18 04:40 Hyposegmented Neuts Not Reportable 11/17/18 04:40 Hypogranular Neuts Not Reportable 11/17/18 04:40 Smudge Cells Not Reportable 11/17/18 04:40 Toxic Granulation Not Reportable 11/17/18 04:40 Toxic Vacuolation Not Reportable 11/17/18 04:40 Dohle Bodies Not Reportable 11/17/18 04:40 Pelger-Huet Anomaly Not Reportable 11/17/18 04:40 Meghan Rods Not Reportable 11/17/18 04:40 Platelet Estimate Appears decreased 11/17/18 04:40 Clumped Platelets Not Reportable 11/17/18 04:40 Plt Clumps, EDTA Not Reportable 11/17/18 04:40 Large Platelets Not Reportable 11/17/18 04:40 Giant Platelets Not Reportable 11/17/18 04:40 Platelet Satelliting Not Reportable 11/17/18 04:40 Plt Morphology Comment Not Reportable 11/17/18 04:40 RBC Morphology Not Reportable 11/17/18 04:40 Dimorphic RBCs Not Reportable 11/17/18 04:40 Polychromasia Not Reportable 11/17/18 04:40 Hypochromasia Not Reportable 11/17/18 04:40 Poikilocytosis Not Reportable 11/17/18 04:40 Anisocytosis 1+ 11/17/18 04:40 Microcytosis Not Reportable 11/17/18 04:40 Macrocytosis Not Reportable 11/17/18 04:40 Spherocytes Not Reportable 11/17/18 04:40 Pappenheimer Bodies Not Reportable 11/17/18 04:40 Sickle Cells Not Reportable 11/17/18 04:40 Target Cells Rare 11/17/18 04:40 Tear Drop Cells Rare 11/17/18 04:40 Ovalocytes 1+ 11/17/18 04:40 Helmet Cells Not Reportable 11/17/18 04:40 [place] Bodies Not Reportable 11/17/18 04:40 [place] Rings Not Reportable 11/17/18 04:40 [place] Cells Not Reportable 11/17/18 04:40 Bite Cells Not Reportable 11/17/18 04:40 Crenated Cell Not Reportable 11/17/18 04:40 Elliptocytes Few 11/17/18 04:40 Acanthocytes (Spur) Not Reportable 11/17/18 04:40 Rouleaux Not Reportable 11/17/18 04:40 Hemoglobin C Crystals Not Reportable 11/17/18 04:40 Schistocytes Not Reportable 11/17/18 04:40 Malaria parasites Not Reportable 11/17/18 04:40 [place] Bodies Not Reportable 11/17/18 04:40 Hem Pathologist Commnt No 11/17/18 04:40 D-Dimer 2061.41 ng/mlDDU (0-234) H 11/11/18 20:41 POC ABG pH 7.339 (7.35-7.45) L 11/15/18 14:26 POC ABG pCO2 35.6 (35-45) 11/15/18 14:26 POC ABG pO2 102 (80-105) 11/15/18 14:26 POC ABG HCO3 19.1 11/15/18 14:26 POC ABG Total CO2 20 11/15/18 14:26 POC ABG O2 Sat 98 11/15/18 14:26 POC ABG Base Excess -7 11/15/18 14:26 VBG pH 7.343 (7.320-7.420) 11/11/18 15:04 FiO2 30 % 11/15/18 14:26 Sodium 139 mmol/L (137-145) 11/17/18 04:40 Potassium 3.8 mmol/L (3.6-5.0) 11/17/18 04:40 Chloride 107.0 mmol/L (98-107) 11/17/18 04:40 Carbon Dioxide 27 mmol/L (22-30) 11/17/18 04:40 Anion Gap 9 mmol/L 11/17/18 04:40 BUN 21 mg/dL (9-20) H 11/17/18 04:40 Creatinine 0.4 mg/dL (0.8-1.5) L 11/17/18 04:40 Estimated GFR > 60 ml/min 11/17/18 04:40 BUN/Creatinine Ratio 53 % 11/17/18 04:40 Glucose 168 mg/dL (75-100) H 11/17/18 04:40 POC Glucose 194 (70-105) H 11/17/18 12:53 Lactic Acid 1.10 mmol/L (0.7-2.0) 11/11/18 23:19 Calcium 7.7 mg/dL (8.4-10.2) L 11/17/18 04:40 Phosphorus 2.50 mg/dL (2.5-4.5) D 11/14/18 05:30 Magnesium 2.10 mg/dL (1.7-2.3) 11/13/18 05:20 Total Bilirubin 0.40 mg/dL (0.1-1.2) 11/12/18 06:30 AST 17 units/L (5-40) 11/12/18 06:30 ALT 11 units/L (7-56) 11/12/18 06:30 Alkaline Phosphatase 72 units/L (35-129) 11/12/18 06:30 C-Reactive Protein 13.70 mg/dL (0.00-1.30) H 11/11/18 20:41 Total Protein 5.2 g/dL (6.3-8.2) L 11/12/18 06:30 Albumin 2.0 g/dL (3.9-5) L 11/12/18 06:30 Albumin/Globulin Ratio 0.6 % 11/12/18 06:30 TSH 0.900 mlU/mL (0.270-4.200) 11/11/18 09:55 Urine Color [place] (Yellow) 11/11/18 10:22 Urine Turbidity Turbid (Clear) 11/11/18 10:22 Urine pH 8.0 (5.0-7.0) H 11/11/18 10:22 Ur Specific [place] 1.011 (1.003-1.030) 11/11/18 10:22 Urine Protein 100 mg/dl mg/dL (Negative) 11/11/18 10:22 Urine Glucose (UA) Neg mg/dL (Negative) 11/11/18 10:22 Urine Ketones Neg mg/dL (Negative) 11/11/18 10:22 Urine Blood Sm (Negative) 11/11/18 10:22 Urine Nitrite Neg (Negative) 11/11/18 10:22 Urine Bilirubin Neg (Negative) 11/11/18 10:22 Urine Urobilinogen < 2.0 mg/dL (<2.0) 11/11/18 10:22 Ur Leukocyte Esterase Lg (Negative) 11/11/18 10:22 Urine WBC (Auto) > 182.0 /HPF (0.0-6.0) H 11/11/18 10:22 Urine RBC (Auto) 27.0 /HPF (0.0-6.0) 11/11/18 10:22 Urine Bacteria (Auto) 3+ /HPF (Negative) 11/11/18 10:22 Urine WBC Clumps 3+ /HPF 11/11/18 10:22 Urine Mucus Few /HPF 11/11/18 10:22 Plasma/Serum Alcohol < 0.01 % (0-0.07) 11/11/18 09:55 Nutrition/Malnutrition Assess - Dietary Evaluation Nutrition/Malnutrition Findings: Nutrition Notes Start: 11/12/18 09:27 Freq: Status: Active Protocol: Document 11/16/18 10:44 CP (Rec: 11/16/18 10:46 CP [id number]) Co-Sign 11/16/18 10:44 LP Nutrition Notes Initial or Follow up Brief Note Current Diet TF - Glucerna 1.2 at 65ml/hr Labs/Tests POC Glu: 297 Pertinent Medications Lantus added Subjective/Other Information TF infusing at 55 mL/hr. Per chart, goal rate is 65 mL/hr. Per RN, rate will be increased to goal (65mL/hr) today. Percent of energy/protein needs met: 85% energy and pro Nutrition Intervention Follow-Up By: 11/18/18 Additional Comments F/U: TF goal rate increase, TF tolerance, BG labs
--- NOTE | 2018-11-17 17:32 | Progress Note ---
Assessment and Plan Cultures: Blood culture 11/11/2018 no growth. Urine culture 11/11/2018 no growth. Tracheal asp 11/11/2018 VISA (VANCOMYCIN INTERMEDIATE STAPH AUREUS). Assessment: 58 y/o male with history of HTN, DM, COPD, CVA with aphasia and right-sided hemiparesis, contracture, dysphagia s/p G tube placement; [facility] on 11/11/[facility] due to AMS/confusion/unresponsiveness: 1) Severe Sepsis with septic shock: off pressors x 48h, no fever for 72h. Etiology most likely multifactorial - complicated UTI +/- pneumonia. CRP 13. Blood culture neg. 2) Complicated UTI: patient with hsitory of recurrrent UTI. Reviewed of micro records noted urine culture in January 2015 with MDR Pseudomonas sensitive to cefepime and zosyn, resistant to imipenem and quinolones. UA with wbc 182, LE la rge. CT scan of the abdomen diffusely irregular wall thickening with bilateral hydronephrosis and bilateral nonobstructive renal stones. There was also masslike area in the left superior bladder wall, also noted moderate bilateral hydroureteronephrosis without obstructing ureteral calculus. [place] placed this admission. 3) Pneumonia/HAP: CXR showed RML atelectasis, repeat CXR showed bilateral pulm onary vascular congestion. CT abd showed right lower lobe consolidation concerning for pneumonia. Right middle lobe opacities also concerning for pneumonia versus aspiration. Tracheal asp 11/11/2018 VISA (VANCOMYCIN INTERMEDIATE STAPH AUREUS). 4) Respiratory failure: still intubated. Recommendations: - requested confirmatory E-test for VANCOMYCIN INTERMEDIATE STAPH AUREUS, if positive isolate has to be reported to [facility] Department - please ask about slade duration/ recommended conservative management - Strict contact isolation due to VISA and history of MDR Pseudomonas - continue zyvox 600 mg ok to change to PO q12h to cover VISA pneumonia D4 of 10 - stop cefepime for now D7of 7 for UTI Will follow. Brianna Yousif MD Infectious Diseases [employer] [facility] M [phone] O [phone] Subjective Date of service: 11/17/18 Principal diagnosis: Acute Hypoxemic Resp Failure; Severe sepsis with shock; UTI; BETHEL Interval history: Patient was extubated now on NC O2. No fever. Alert no follows commands. ROS: unable to obtain Objective - Exam Narrative Exam: General appearance: more alert in NAD on NC Eyes: anicteric sclerae, moist conjunctivae; no lid-lag; PERRLA HENT: Atraumatic; oropharynx limited Neck: Trachea midline; supple, no thyromegaly or lymphadenopathy Lungs: dina rhonchi CV: RRR, no murmurs Abdomen: Soft, non-tender; +PEG Extremities: + left arm edema + RUE contraction Skin: Normal temperature, turgor and texture; no rash, ulcers or subcutaneous nodules Psych: alert no follows commands Neuro: alert no agitated R IJ TLC - Constitutional Vitals: Vital Signs Temp Pulse Resp BP Pulse Ox 97 F L 91 H 23 99/62 91 11/17/18 16:00 11/17/18 16:01 11/17/18 16:01 11/17/18 16:01 11/17/18 16:01 Temperature -Last 24 Hours Temperature 97 F Temperature 97 F Temperature 98.2 F Temperature 98.9 F Temperature 98.4 F Temperature 97.9 F - Labs CBC & Chem 7: 11/17/18 04:40 11/17/18 04:40 Labs: Abnormal lab results 11/16/18 11/17/18 11/17/18 Range/Units 23:30 04:40 04:40 RBC 3.58 L (3.65-5.03) M/mm3 Hgb 11.2 L (11.8-15.2) gm/dl Hct 32.4 L (35.5-45.6) % MCHC 35 H (32-34) % Plt Count 104 L (140-440) K/mm3 Seg Neuts % (Manual) 98.0 H (40.0-70.0) % Lymphocytes % (Manual) 1.0 L (13.4-35.0) % Seg Neutrophils # Man 9.9 H (1.8-7.7) K/mm3 Lymphocytes # (Manual) 0.1 L (1.2-5.4) K/mm3 BUN 21 H (9-20) mg/dL Creatinine 0.4 L (0.8-1.5) mg/dL Glucose 168 H (75-100) mg/dL POC Glucose 241 H (70-105) Calcium 7.7 L (8.4-10.2) mg/dL 11/17/18 11/17/18 Range/Units 05:42 12:53 RBC (3.65-5.03) M/mm3 Hgb (11.8-15.2) gm/dl Hct (35.5-45.6) % MCHC (32-34) % Plt Count (140-440) K/mm3 Seg Neuts % (Manual) (40.0-70.0) % Lymphocytes % (Manual) (13.4-35.0) % Seg Neutrophils # Man (1.8-7.7) K/mm3 Lymphocytes # (Manual) (1.2-5.4) K/mm3 BUN (9-20) mg/dL Creatinine (0.8-1.5) mg/dL Glucose (75-100) mg/dL POC Glucose 210 H 194 H (70-105) Calcium (8.4-10.2) mg/dL
[2018-11-17] MEDS: NEURONTIN PO SCH (23:00)
[2018-11-18] MEDS: DUONEB *Not for PRN Use IH SCH ×4 (00:40→23:20)
[2018-11-18] MEDS: HumaLOG SUB-Q SCH ×4 (01:10→17:34)
[2018-11-18] MEDS: SOLU-Medrol IV SCH ×3 (06:29→22:05)
[2018-11-18] MEDS: PROAMATINE PO SCH ×3 (08:34→22:06)
[2018-11-18] MEDS: VITAMIN C FEEDTUBE SCH (09:36)
[2018-11-18] MEDS: FLORANEX PO SCH (09:36)
[2018-11-18] MEDS: POTASSIUM CHLORIDE FEEDTUBE SCH (09:37)
[2018-11-18] MEDS: SODIUM CHLORIDE FLUSH SYRINGE 10 ML IV SCH ×2 (09:38→22:07)
[2018-11-18] MEDS: PREVACID SOLUTAB FEEDTUBE SCH (09:39)
[2018-11-18] MEDS: HEPARIN SUB-Q SCH ×2 (09:40→22:05)
--- NOTE | 2018-11-18 09:53 | Progress Note ---
Assessment and Plan Acute hypoxemic respiratory failures/p mechanical ventilatory support. Acute on chronic encephalopathy. Severe sepsis with shock, presumably due to UTI Urinary tract infection. Acute kidney injury. Likely bladder outlet obstruction. Bilateral hydronephrosis. Nephrolithiasis. History of diabetes. Hypertension. Chronic obstructive lung disease. Prior cerebrovascular accident with left hemiparesis. Oropharyngeal dysphagia. Metabolic acidosis. Hyponatremia, moderate. Adult failure to thrive. -supplemental oxygen to keep O2 sats>90% - continue midodrine 10 mg p.o. tid - continue aspiration precautions - continue bronchodilators with pulmonary hygiene per RT - nephrology evaluation ongoing - continue slade catheter and follow urologist recommendations - continue enteral nutrition as tolerated - PT/OT/ROM exercises as tolerated - mobility protocol for pressure ulcer prophylaxis - continue GI & VTE prophylaxis - continue other care per attending / other consultants Subjective Date of service: 11/18/18 Principal diagnosis: Acute Hypoxemic Resp Failure; Severe sepsis with shock; UTI; BETHEL Interval history: Patient is seen today for: Acute hypoxemic respiratory failure s/p mechanical ventilatory support; Acute on chronic encephalopathy; Severe sepsis with shock, presumably due to UTI; Urinary tract infection; Acute kidney injury. Seen and examined at bedside; 24hour events reviewed; nursing and respiratory care staff consulted; no adverse overnight events reported to me; resting peacefully in bed;no fevers, no vomiting Objective Vital Signs - 12hr 11/17/18 11/17/18 11/17/18 22:00 22:31 22:41 Temperature Pulse Rate 74 78 74 Pulse Rate [ Anterior Bilateral Throughout] Respiratory 23 20 21 Rate Respiratory Rate [Anterior Bilateral Throughout] Blood Pressure 107/70 114/72 114/72 O2 Sat by Pulse 96 96 95 Oximetry 11/17/18 11/17/18 11/17/18 22:51 23:00 23:11 Temperature Pulse Rate 75 75 74 Pulse Rate [ Anterior Bilateral Throughout] Respiratory 24 21 19 Rate Respiratory Rate [Anterior Bilateral Throughout] Blood Pressure 114/72 107/73 107/70 O2 Sat by Pulse 96 98 98 Oximetry 11/17/18 11/17/18 11/18/18 23:21 23:52 00:23 Temperature 98.8 F 97.8 F Pulse Rate 74 58 L Pulse Rate [ Anterior Bilateral Throughout] Respiratory 22 17 Rate Respiratory Rate [Anterior Bilateral Throughout] Blood Pressure 107/70 119/75 O2 Sat by Pulse 96 94 Oximetry 11/18/18 11/18/18 11/18/18 03:59 08:12 08:30 Temperature 97.8 F 98.4 F Pulse Rate 74 72 Pulse Rate [ 76 Anterior Bilateral Throughout] Respiratory 17 20 Rate Respiratory 18 Rate [Anterior Bilateral Throughout] Blood Pressure 112/71 127/72 O2 Sat by Pulse 92 95 Oximetry 11/18/18 09:19 Temperature Pulse Rate Pulse Rate [ 79 Anterior Bilateral Throughout] Respiratory Rate Respiratory 20 Rate [Anterior Bilateral Throughout] Blood Pressure O2 Sat by Pulse 94 Oximetry Constitutional: appears uncomfortable, other (elderly, chronically ill looking CM, normocephalic and atraumatic ) Eyes: non-icteric ENT: oropharynx moist Neck: supple, no lymphadenopathy, no JVD, other (no thyromegaly) Effort: normal Ascultation: Bilateral: diminished breath sounds, rhonchi Percussion: Bilateral: not dull Cardiovascular: regular rate and rhythm, other (S1,S2, no murmurs, gallops or rubs) Gastrointestinal: normoactive bowel sounds, soft, non-tender, non-distended Integumentary: rash, other (poor turgor; decubitus ulcer) Extremities: no edema, pink and warm, pulses normal, other (? early digital gangrene) Neurologic: unable to assess, other (mental retardation) Psychiatric: other (unable to assess) CBC and BMP: 11/17/18 04:40 11/17/18 04:40 ABG, PT/INR, D-dimer: ABG POC ABG pH 7.339 (7.35-7.45) L 11/15/18 14:26 POC ABG pCO2 35.6 (35-45) 11/15/18 14:26 POC ABG pO2 102 (80-105) 11/15/18 14:26 POC ABG HCO3 19.1 11/15/18 14:26 POC ABG Total CO2 20 11/15/18 14:26 POC ABG O2 Sat 98 11/15/18 14:26 PT/INR, D-dimer D-Dimer 2061.41 ng/mlDDU (0-234) H 11/11/18 20:41 Abnormal lab findings: Abnormal Labs 11/11/18 11/11/18 11/11/18 09:55 09:55 10:22 WBC RBC Hgb Hct MCHC 35 H Plt Count Lymph % (Auto) 2.9 L [place] % (Auto) 9.8 H Lymph # 0.3 L [place] # 1.0 H Seg Neutrophils % 87.0 H Seg Neuts % (Manual) Lymphocytes % (Manual) Seg Neutrophils # 8.7 H Seg Neutrophils # Man Lymphocytes # (Manual) D-Dimer POC ABG pH POC ABG pCO2 POC ABG pO2 Sodium 129 L Chloride 95.5 L Carbon Dioxide 18 L BUN 155 H Creatinine 3.1 H Glucose 196 H POC Glucose Calcium Phosphorus C-Reactive Protein Total Protein Albumin 2.4 L Urine pH 8.0 H Urine WBC (Auto) > 182.0 H 11/11/18 11/11/18 11/11/18 12:04 18:36 20:41 WBC RBC Hgb Hct MCHC Plt Count Lymph % (Auto) [place] % (Auto) Lymph # [place] # Seg Neutrophils % Seg Neuts % (Manual) Lymphocytes % (Manual) Seg Neutrophils # Seg Neutrophils # Man Lymphocytes # (Manual) D-Dimer POC ABG pH 7.335 L 7.256 L POC ABG pCO2 34.8 L POC ABG pO2 55 L 74 L Sodium Chloride Carbon Dioxide BUN Creatinine Glucose POC Glucose Calcium Phosphorus C-Reactive Protein 13.70 H Total Protein Albumin Urine pH Urine WBC (Auto) 11/11/18 11/11/18 11/12/18 20:41 21:37 04:20 WBC RBC Hgb Hct MCHC Plt Count Lymph % (Auto) [place] % (Auto) Lymph # [place] # Seg Neutrophils % Seg Neuts % (Manual) Lymphocytes % (Manual) Seg Neutrophils # Seg Neutrophils # Man Lymphocytes # (Manual) D-Dimer 2061.41 H POC ABG pH 7.328 L POC ABG pCO2 32.9 L 27.6 L POC ABG pO2 170 H Sodium Chloride Carbon Dioxide BUN Creatinine Glucose POC Glucose Calcium Phosphorus C-Reactive Protein Total Protein Albumin Urine pH Urine WBC (Auto) 11/12/18 11/12/18 11/12/18 05:14 06:30 06:30 WBC 15.3 H RBC Hgb Hct 34.9 L MCHC Plt Count Lymph % (Auto) [place] % (Auto) Lymph # [place] # Seg Neutrophils % Seg Neuts % (Manual) 94.0 H Lymphocytes % (Manual) 1.0 L Seg Neutrophils # 13.7 H Seg Neutrophils # Man 14.4 H Lymphocytes # (Manual) 0.2 L D-Dimer POC ABG pH POC ABG pCO2 POC ABG pO2 Sodium Chloride 113.2 H Carbon Dioxide 19 L BUN 93 H Creatinine Glucose 182 H POC Glucose 176 H Calcium 7.9 L Phosphorus C-Reactive Protein Total Protein 5.2 L Albumin 2.0 L Urine pH Urine WBC (Auto) 11/12/18 11/12/18 11/13/18 12:23 18:20 00:17 WBC RBC Hgb Hct MCHC Plt Count Lymph % (Auto) [place] % (Auto) Lymph # [place] # Seg Neutrophils % Seg Neuts % (Manual) Lymphocytes % (Manual) Seg Neutrophils # Seg Neutrophils # Man Lymphocytes # (Manual) D-Dimer POC ABG pH POC ABG pCO2 POC ABG pO2 Sodium Chloride Carbon Dioxide BUN Creatinine Glucose POC Glucose 201 H 218 H 222 H Calcium Phosphorus C-Reactive Protein Total Protein Albumin Urine pH Urine WBC (Auto) 11/13/18 11/13/18 11/13/18 04:41 04:53 05:20 WBC RBC 3.62 L Hgb 11.3 L Hct 32.8 L MCHC Plt Count Lymph % (Auto) [place] % (Auto) Lymph # [place] # Seg Neutrophils % Seg Neuts % (Manual) 90.0 H Lymphocytes % (Manual) 5.0 L Seg Neutrophils # Seg Neutrophils # Man 8.8 H Lymphocytes # (Manual) 0.5 L D-Dimer POC ABG pH POC ABG pCO2 31.0 L POC ABG pO2 Sodium Chloride Carbon Dioxide BUN Creatinine Glucose POC Glucose 238 H Calcium Phosphorus C-Reactive Protein Total Protein Albumin Urine pH Urine WBC (Auto) 11/13/18 11/13/18 11/13/18 05:20 11:58 17:47 WBC RBC Hgb Hct MCHC Plt Count Lymph % (Auto) [place] % (Auto) Lymph # [place] # Seg Neutrophils % Seg Neuts % (Manual) Lymphocytes % (Manual) Seg Neutrophils # Seg Neutrophils # Man Lymphocytes # (Manual) D-Dimer POC ABG pH POC ABG pCO2 POC ABG pO2 Sodium 149 H Chloride 120.8 H Carbon Dioxide 18 L BUN 52 H Creatinine 0.7 L Glucose 247 H POC Glucose 306 H 217 H Calcium 7.8 L Phosphorus 1.90 L C-Reactive Protein Total Protein Albumin Urine pH Urine WBC (Auto) 11/13/18 11/14/18 11/14/18 23:05 04:24 05:30 WBC RBC Hgb Hct MCHC Plt Count Lymph % (Auto) [place] % (Auto) Lymph # [place] # Seg Neutrophils % Seg Neuts % (Manual) Lymphocytes % (Manual) Seg Neutrophils # Seg Neutrophils # Man Lymphocytes # (Manual) D-Dimer POC ABG pH 7.294 L POC ABG pCO2 POC ABG pO2 Sodium 150 H Chloride 121.3 H Carbon Dioxide BUN 40 H Creatinine 0.6 L Glucose 241 H POC Glucose 207 H Calcium 7.9 L Phosphorus C-Reactive Protein Total Protein Albumin Urine pH Urine WBC (Auto) 11/14/18 11/14/18 11/14/18 05:30 05:32 11:36 WBC RBC 3.22 L Hgb 10.0 L Hct 29.7 L MCHC Plt Count 137 L Lymph % (Auto) [place] % (Auto) Lymph # [place] # Seg Neutrophils % Seg Neuts % (Manual) 89.0 H Lymphocytes % (Manual) 3.0 L Seg Neutrophils # Seg Neutrophils # Man Lymphocytes # (Manual) 0.2 L D-Dimer POC ABG pH POC ABG pCO2 POC ABG pO2 Sodium Chloride Carbon Dioxide BUN Creatinine Glucose POC Glucose 235 H 277 H Calcium Phosphorus C-Reactive Protein Total Protein Albumin Urine pH Urine WBC (Auto) 11/14/18 11/14/18 11/15/18 17:52 23:48 05:20 WBC RBC Hgb Hct MCHC Plt Count Lymph % (Auto) [place] % (Auto) Lymph # [place] # Seg Neutrophils % Seg Neuts % (Manual) Lymphocytes % (Manual) Seg Neutrophils # Seg Neutrophils # Man Lymphocytes # (Manual) D-Dimer POC ABG pH POC ABG pCO2 POC ABG pO2 Sodium Chloride Carbon Dioxide BUN Creatinine Glucose POC Glucose 257 H 243 H 250 H Calcium Phosphorus C-Reactive Protein Total Protein Albumin Urine pH Urine WBC (Auto) 11/15/18 11/15/18 11/15/18 09:55 12:51 14:26 WBC RBC Hgb Hct MCHC Plt Count Lymph % (Auto) [place] % (Auto) Lymph # [place] # Seg Neutrophils % Seg Neuts % (Manual) Lymphocytes % (Manual) Seg Neutrophils # Seg Neutrophils # Man Lymphocytes # (Manual) D-Dimer POC ABG pH 7.339 L POC ABG pCO2 POC ABG pO2 Sodium Chloride 111.5 H Carbon Dioxide BUN 30 H Creatinine 0.5 L Glucose 239 H POC Glucose 254 H Calcium 7.8 L Phosphorus C-Reactive Protein Total Protein Albumin Urine pH Urine WBC (Auto) 11/15/18 11/15/18 11/16/18 17:49 23:54 05:04 WBC RBC Hgb Hct MCHC Plt Count Lymph % (Auto) [place] % (Auto) Lymph # [place] # Seg Neutrophils % Seg Neuts % (Manual) Lymphocytes % (Manual) Seg Neutrophils # Seg Neutrophils # Man Lymphocytes # (Manual) D-Dimer POC ABG pH POC ABG pCO2 POC ABG pO2 Sodium Chloride Carbon Dioxide BUN Creatinine Glucose POC Glucose 179 H 146 H 297 H Calcium Phosphorus C-Reactive Protein Total Protein Albumin Urine pH Urine WBC (Auto) 11/16/18 11/16/18 11/16/18 09:08 12:20 17:16 WBC RBC Hgb Hct MCHC Plt Count Lymph % (Auto) [place] % (Auto) Lymph # [place] # Seg Neutrophils % Seg Neuts % (Manual) Lymphocytes % (Manual) Seg Neutrophils # Seg Neutrophils # Man Lymphocytes # (Manual) D-Dimer POC ABG pH POC ABG pCO2 POC ABG pO2 Sodium Chloride Carbon Dioxide BUN Creatinine Glucose POC Glucose 244 H 253 H 221 H Calcium Phosphorus C-Reactive Protein Total Protein Albumin Urine pH Urine WBC (Auto) 11/16/18 11/17/18 11/17/18 23:30 04:40 04:40 WBC RBC 3.58 L Hgb 11.2 L Hct 32.4 L MCHC 35 H Plt Count 104 L Lymph % (Auto) [place] % (Auto) Lymph # [place] # Seg Neutrophils % Seg Neuts % (Manual) 98.0 H Lymphocytes % (Manual) 1.0 L Seg Neutrophils # Seg Neutrophils # Man 9.9 H Lymphocytes # (Manual) 0.1 L D-Dimer POC ABG pH POC ABG pCO2 POC ABG pO2 Sodium Chloride Carbon Dioxide BUN 21 H Creatinine 0.4 L Glucose 168 H POC Glucose 241 H Calcium 7.7 L Phosphorus C-Reactive Protein Total Protein Albumin Urine pH Urine WBC (Auto) 11/17/18 11/17/18 11/17/18 05:42 12:53 17:59 WBC RBC Hgb Hct MCHC Plt Count Lymph % (Auto) [place] % (Auto) Lymph # [place] # Seg Neutrophils % Seg Neuts % (Manual) Lymphocytes % (Manual) Seg Neutrophils # Seg Neutrophils # Man Lymphocytes # (Manual) D-Dimer POC ABG pH POC ABG pCO2 POC ABG pO2 Sodium Chloride Carbon Dioxide BUN Creatinine Glucose POC Glucose 210 H 194 H 178 H Calcium Phosphorus C-Reactive Protein Total Protein Albumin Urine pH Urine WBC (Auto) 11/18/18 11/18/18 00:12 05:54 WBC RBC Hgb Hct MCHC Plt Count Lymph % (Auto) [place] % (Auto) Lymph # [place] # Seg Neutrophils % Seg Neuts % (Manual) Lymphocytes % (Manual) Seg Neutrophils # Seg Neutrophils # Man Lymphocytes # (Manual) D-Dimer POC ABG pH POC ABG pCO2 POC ABG pO2 Sodium Chloride Carbon Dioxide BUN Creatinine Glucose POC Glucose 126 H 172 H Calcium Phosphorus C-Reactive Protein Total Protein Albumin Urine pH Urine WBC (Auto) Chest x-ray: image reviewed Allied health notes reviewed: nursing
[2018-11-18] MEDS: LANTUS SUB-Q SCH (10:42)
--- NOTE | 2018-11-18 11:02 | Progress Note ---
Assessment and Plan Assessment: 58 y/o male with history of HTN, DM, COPD, CVA with aphasia and right-sided hemiparesis, contracture, dysphagia s/p G tube placement; [facility] on 11[facility]11/2018 [facility] due to AMS/confusion/unresponsiveness: 1) Severe Sepsis with septic shock:, Resolved Etiology most likely multifactorial - complicated UTI +/- pneumonia. CRP 13. Blood culture neg. 2) Complicated UTI: patient with hsitory of recurrrent UTI. Reviewed of micro records noted urine culture in January 2015 with MDR Pseudomonas sensitive to cefepime and zosyn, resistant to imipenem and quinolones. UA with wbc 182, LE large. CT scan of the abdomen diffusely irregular wall thickening with bilateral hydronephrosis and bilateral nonobstructive renal stones. There was also masslike area in the left superior bladder wall, also noted moderate bilateral hydroureteronephrosis without obstructing ureteral calculus. [place] placed this admission. 3) Pneumonia/HAP: CXR showed RML atelectasis, repeat CXR showed bilateral pulmonary vascular congestion. CT abd showed right lower lobe consolidation concerning for pneumonia. Right middle lobe opacities also concerning for pneumonia versus aspiration. Tracheal asp 11/11/2018 VISA (VANCOMYCIN INTERMEDIATE STAPH AUREUS). 4) Respiratory failure: still intubated. Recommendations: - requested confirmatory E-test for VANCOMYCIN INTERMEDIATE STAPH AUREUS, if positive isolate has to be reported to [facility] for epidemiology purposes - Will be discharged with [place], will follow up with urology for suprapubic catheter outpatient - Strict contact isolation due to VISA and history of MDR Pseudomonas - continue zyvox 600 mg PO q12h to cover VISA pneumonia D5 of 10 - ok to discharge from ID standpoint [facility] M: [id number] O:[phone] Subjective Date of service: 11/18/18 Principal diagnosis: Acute Hypoxemic Resp Failure; Severe sepsis with shock; UTI; BETHEL Interval history: Patient seen and examined. Nonverbal, no fevers. No acute distress. Family not a bedside. Objective - Exam Narrative Exam: General appearance: Alert, non verbal, no acute distress Eyes: anicteric sclerae, moist conjunctivae; no lid-lag; PERRLA HENT: Atraumatic; oropharynx limited Neck: Trachea midline; supple, no thyromegaly or lymphadenopathy Lungs: clear to auscultation CV: RRR, no murmurs Abdomen: Soft, non-tender; +PEG Extremities: + left arm edema + RUE contraction Skin: Normal temperature, turgor and texture; no rash, ulcers or subcutaneous nodules Psych: alert does not follows commands Neuro: alert not agitated - Constitutional Vitals: Vital Signs Temp Pulse Resp BP Pulse Ox 98.4 F 79 20 127/72 94 11/18/18 08:12 11/18/18 09:19 11/18/18 09:19 11/18/18 08:12 11/18/18 09:19 Temperature -Last 24 Hours Temperature 98.4 F Temperature 97.8 F Temperature 97.8 F Temperature 98.8 F Temperature 98.0 F Temperature 97 F Temperature 97 F - Labs CBC & Chem 7: 11/17/18 04:40 11/17/18 04:40 Labs: Abnormal lab results 11/17/18 11/17/18 11/18/18 Range/Units 12:53 17:59 00:12 POC Glucose 194 H 178 H 126 H (70-105) 11/18/18 Range/Units 05:54 POC Glucose 172 H (70-105)
--- NOTE | 2018-11-18 12:46 | Progress Note ---
Assessment and Plan - Patient Problems (1) ARF (acute renal failure) with tubular necrosis Current Visit: Yes Status: Acute Plan to address problem: Overall renal function is improved. Nephrology will sign off at this time. Patient is to follow up with us in the clinic within 1 month of discharge. Please don't hesitate to call us back if needed. (2) Altered mental status Current Visit: Yes Status: Acute Plan to address problem: Secondary to toxic/metabolic encephalopathy. It seems the patient is essentially back to his baseline at this time. (3) Hydronephrosis Current Visit: Yes Status: Acute Plan to address problem: slade placement with adequate urine output noted. Further management per urology recommendations. (4) Hypernatremia Current Visit: Yes Status: Acute Plan to address problem: Resolved at present time. (5) Sepsis Current Visit: Yes Status: Acute Qualifiers: Sepsis type: sepsis due to unspecified organism Qualified Code(s): A41.9 - Sepsis, unspecified organism Plan to address problem: Weaned off pressors, on antibiotics. ID on case and will appreciate further recommendations/input (6) Acute respiratory failure with hypoxemia Current Visit: No Status: Acute Plan to address problem: Patient has been extubated at this time. (7) Hypophosphatemia Current Visit: Yes Status: Acute Plan to address problem: Replete per protocol. Subjective Date of service: 11/18/18 Principal diagnosis: Acute Hypoxemic Resp Failure; Severe sepsis with shock; UTI; BETHEL Interval history: No acute events overnight. Slade remains in place. Renal function is stable. Objective - Vital Signs Vital signs: Vital Signs - 12hr 11/18/18 11/18/18 11/18/18 03:59 08:12 08:30 Temperature 97.8 F 98.4 F Pulse Rate 74 72 Pulse Rate [ 76 Anterior Bilateral Throughout] Respiratory 17 20 Rate Respiratory 18 Rate [Anterior Bilateral Throughout] Blood Pressure 112/71 127/72 O2 Sat by Pulse 92 95 Oximetry 11/18/18 11/18/18 09:19 11:52 Temperature 98.2 F Pulse Rate 76 Pulse Rate [ 79 Anterior Bilateral Throughout] Respiratory 20 Rate Respiratory 20 Rate [Anterior Bilateral Throughout] Blood Pressure 130/76 O2 Sat by Pulse 94 95 Oximetry - General Appearance General appearance: well-nourished, appears stated age EENT: ATNC, PERRL Neck: no JVD, no thyromegaly Respiratory: Present: Clear to Ascultation Cardiology: regular, S1S2 Gastrointestinal: normal, normoactive bowel sounds Integumentary: warm and dry Neurologic: no focal deficit, no asterixis Musculoskeletal: other (negative edema) Psychiatric: cooperative - Lab 11/17/18 04:40 11/17/18 04:40 Most recent lab results Calcium 7.7 mg/dL (8.4-10.2) L 11/17/18 04:40 Phosphorus 2.50 mg/dL (2.5-4.5) D 11/14/18 05:30 Magnesium 2.10 mg/dL (1.7-2.3) 11/13/18 05:20 - Allied health notes Allied health notes reviewed: nursing Medications & Allergies - Medications Allergies/Adverse Reactions: Allergies No Known Allergies Allergy (Verified 02/27/15 00:48) Home Medications: Home Medications Medication Instructions Recorded Confirmed Last Taken Type AtorvaSTATin [Lipitor] 40 mg FEEDTUBE QHS 06/21/16 11/11/18 06/20/16 History Ascorbic Acid [Vitamin C] 500 mg FEEDTUBE QDAY 07/14/18 11/11/18 Unknown History Aspirin [Adult Aspirin Regimen] 81 mg FEEDTUBE DAILY 07/14/18 11/11/18 Unknown History Ipratropium/Albuterol Sulfate 1 ampul IH Q6HR 07/14/18 11/11/18 Unknown History [DUONEB *Not for PRN Use*] Multivitamin [Multiple Vitamins] 1 each FEEDTUBE DAILY 07/14/18 11/11/18 Unknown History Protein Supplement [Promod] 30 ml FEEDTUBE Q8H 07/14/18 11/11/18 Unknown History Acetaminophen [Tylenol] 650 mg FEEDTUBE Q4HR PRN 11/11/18 11/11/18 Unknown History Gabapentin [Neurontin] 300 mg FEEDTUBE BID 11/11/18 11/11/18 Unknown History L. Acidophilus/L.bulgaricus 1 each FEEDTUBE QAM 11/11/18 11/11/18 Unknown History [Lactobacillus Tablet] Omeprazole 20 mg FEEDTUBE QAM 11/11/18 11/11/18 Unknown History Potassium Chloride 20 meq FEEDTUBE QDAY 11/11/18 11/11/18 Unknown History guaiFENesin DM [Robitussin Dm] 10 ml FEEDTUBE Q6HR PRN 11/11/18 11/11/18 Unknown History levoFLOXacin [Levaquin TAB] 500 mg FEEDTUBE QDAY 11/11/18 11/11/18 Unknown History Active Medications: Generic Name Dose Route Start Last Admin Trade Name Freq PRN Reason Stop Dose Admin Acetaminophen 650 mg 11/11/18 16:44 Tylenol FEEDTUBE Q4H PRN Pain, Mild (1-3) Albuterol 2.5 mg 11/11/18 15:42 Proventil IH Q3HRT PRN Shortness Of Breath Albuterol/Ipratropium 1 ampul 11/12/18 16:00 11/18/18 08:30 Duoneb *Not For Prn Use* IH 1 ampul Q8HRT SHIRA Administration Lipase/Protease/Amylase 1 each 11/12/18 14:[address] 10,500 Unit FEEDTUBE PRN PRN For Clogged Feeding Tube Ascorbic Acid 500 mg 11/12/18 10:00 11/18/18 09:36 Vitamin C FEEDTUBE 500 mg QDAY SHIRA Administration Atorvastatin Calcium 40 mg 11/11/18 22:00 11/17/18 23:00 Lipitor FEEDTUBE 40 mg QHS SHIRA Administration Gabapentin 300 mg 11/12/18 22:00 11/17/18 23:00 Neurontin PO 300 mg QHS SHIRA Administration Guaifenesin 10 ml 11/11/18 15:53 Guaifenesin Dm Syrup FEEDTUBE Q6HR PRN Cough Heparin Sodium (Porcine) 5,000 unit 11/12/18 14:00 11/18/18 09:40 Heparin SUB-Q 5,000 unit Q12HR SHIRA Administration Hydrophilic Ointment 1 applic 11/11/18 16:03 Vaseline Lip Therapy TP Q2HR PRN Dry Lips Norepinephrine 4 mg in 250 mls @ 7.5 mls/hr 11/11/18 16:36 11/16/18 11:30 Levophed Drip 4 Mg/Ns 250 Ml IV 0 mcg/min TITR SHIRA 0 mls/hr Titration Protocol 2 MCG/MIN Insulin Glargine 10 units 11/15/18 13:00 11/18/18 10:42 Lantus SUB-Q 10 units DAILY SHIRA Administration Insulin Human Lispro 0 unit 11/12/18 14:00 11/18/18 06:28 Humalog SUB-Q 2 unit Q6HR SHIRA Administration Protocol Lactobacillus Acidophilus 1 each 11/12/18 10:00 11/18/18 09:36 Floranex PO 1 each QAM SHIRA Administration Lansoprazole 30 mg 11/12/18 10:00 11/18/18 09:39 Prevacid Solutab FEEDTUBE 30 mg QDAY SHIRA Administration Linezolid 600 mg 11/16/18 10:00 11/17/18 23:00 Zyvox PO 600 mg BID SHIRA Administration Methylprednisolone Sodium Succinate 60 mg 11/12/18 14:00 11/18/18 06:29 Solu-Medrol IV 60 mg Q8HR SHIRA Administration Midodrine 10 mg 11/16/18 12:00 11/18/18 08:34 Proamatine PO 10 mg TID SHIRA Administration Multi-Ingred Cream/Lotion/Oil/Oint 1 applic 11/11/18 16:03 Artificial Tears Ophth Oint OU Q4HR PRN Dry Eye(s) Multivitamins 5 ml 11/12/18 10:00 11/17/18 10:57 Centrum Liq PO 5 ml QDAY SHIRA Administration Potassium Chloride 20 meq 11/12/18 10:00 11/18/18 09:37 Potassium Chloride FEEDTUBE 20 meq QDAY SHIRA Administration Simple Syrup 15 ml 11/12/18 14:42 Simple Syrup FEEDTUBE PRN PRN Hypoglycemia Simple Syrup 30 ml 11/12/18 14:42 Simple Syrup FEEDTUBE PRN PRN Hypoglycemia Sodium Bicarbonate 325 mg 11/12/18 14:42 Sodium Bicarbonate FEEDTUBE PRN PRN For Clogged Feeding Tube Sodium Chloride 10 ml 11/11/18 22:00 11/18/18 09:38 Sodium Chloride Flush Syringe 10 Ml IV 10 ml BID SHIRA Administration Sodium Chloride 10 ml 11/11/18 15:42 11/17/18 13:14 Sodium Chloride Flush Syringe 10 Ml IV 10 ml PRN PRN Administration LINE FLUSH
[2018-11-18] MEDS: ZYVOX PO SCH ×2 (13:47→22:06)
[2018-11-18] MEDS: Centrum Liq PO SCH (13:47)
--- NOTE | 2018-11-18 17:01 | Progress Note ---
Assessment and Plan Assessment and plan: 58 YO Male Assisted Resident with HTN, DM, COPD, CVA with LHP, Contracture, and Dysphagia S/P G tube placement, DM, COPD, presents to ED for evaluation. Pt is stuporous and unable to provide history. History taken from SNF staff. As per SNF staff, the patient was found to be confused and nonresponsive. Pt seen and found to have Sepsis secondary to UTI, Acute Renal Failure, Acute Hypoxemic Respiratory Failure. Pt admitted to ICU and initiated on sepsis protocol. Severe Sepsis with shock. F/U Blood cx. sec UTI/PNA. Cont. Iv abx. Patient is off pressors for the last 48 hours. ID following Acute hypoxemic resp failure. Cont. per Pulm. Etiology sec RLL PNA. However, elevated d-dimer--consider PE but Doppler negative. CTA chest when hemodynamically stable. Check Echo. patient extubated 11/15/18 UTi. Cont IV abx. F/U cx. CTAP (11-11-18) bilat hydro (no obstructing stone), bladder mass,Cystitis. Urology following and recommends conservative management. Toxic metabolic encephalopathy; looks like he is at baseline ARF. Etiology likely secondary to BETHEL secondary to atn/sepsis. Resolved RLL Pneumonia. Cont Abx. Tracheal asp 11/11/2018 VISA (VANCOMYCIN INTERMEDIATE STAPH AUREUS). On linezolid. ID following. DVT prophylaxis - On heparin Disposition - possible Dc tomorrow. History Interval history: Patient was seen and evaluated this morning, patient was alert but not communicative, doesn't follow commands. Hospitalist Physical - Physical exam Narrative exam: Patientwas extubated 11/15/18 The patient appeared well nourished and normally developed. Vital signs as documented. Head exam is unremarkable. No scleral icterus . Neck is without jugular venous distension, thyromegaly, or carotid bruits. Lungs are clear to auscultation. Cardiac exam reveals regular rate and Rhythm. Abdominal exam reveals normal bowel sounds. Extremities contracted right upper extremity [employer]: Alert but not able to communicate. - Constitutional Vitals: Temp Pulse Resp BP Pulse Ox 98.0 F 69 20 133/76 93 11/18/18 16:50 11/18/18 16:50 11/18/18 16:50 11/18/18 16:50 11/18/18 16:50 General appearance: Present: cachectic, other (intubated on mech ventilation) Results - Labs CBC & Chem 7: 11/17/18 04:40 11/17/18 04:40 Labs: Laboratory Last Values WBC 10.1 K/mm3 (4.5-11.0) 11/17/18 04:40 RBC 3.58 M/mm3 (3.65-5.03) L 11/17/18 04:40 Hgb 11.2 gm/dl (11.8-15.2) L 11/17/18 04:40 Hct 32.4 % (35.5-45.6) L 11/17/18 04:40 MCV 90 fl (84-94) 11/17/18 04:40 MCH 31 pg (28-32) 11/17/18 04:40 MCHC 35 % (32-34) H 11/17/18 04:40 RDW 13.7 % (13.2-15.2) 11/17/18 04:40 Plt Count 104 K/mm3 (140-440) L 11/17/18 04:40 Lymph % (Auto) 2.9 % (13.4-35.0) L 11/11/18 09:55 [place] % (Auto) 5.7 % (0.0-7.3) 11/12/18 06:30 Eos % (Auto) 0.0 % (0.0-4.3) 11/12/18 06:30 Baso % (Auto) 0.3 % (0.0-1.8) 11/11/18 09:55 Lymph # 0.3 K/mm3 (1.2-5.4) L 11/11/18 09:55 [place] # 0.8 K/mm3 (0.0-0.8) 11/12/18 06:30 Eos # 0.0 K/mm3 (0.0-0.4) 11/12/18 06:30 Baso # 0.0 K/mm3 (0.0-0.1) 11/12/18 06:30 Add Manual Diff Complete 11/17/18 04:40 Total Counted 100 11/17/18 04:40 Seg Neutrophils % Special Procedure Tech 11/17/18 04:40 Seg Neuts % (Manual) 98.0 % (40.0-70.0) H 11/17/18 04:40 Band Neutrophils % 0 % 11/17/18 04:40 Lymphocytes % (Manual) 1.0 % (13.4-35.0) L 11/17/18 04:40 Reactive Lymphs % (Man) 0 % 11/17/18 04:40 Monocytes % (Manual) 1.0 % (0.0-7.3) 11/17/18 04:40 Eosinophils % (Manual) 0 % (0.0-4.3) 11/17/18 04:40 Basophils % (Manual) 0 % (0.0-1.8) 11/17/18 04:40 Metamyelocytes % 0 % 11/17/18 04:40 Myelocytes % 0 % 11/17/18 04:40 Promyelocytes % 0 % 11/17/18 04:40 Blast Cells % 0 % 11/17/18 04:40 Nucleated RBC % Not Reportable 11/17/18 04:40 Seg Neutrophils # 13.7 K/mm3 (1.8-7.7) H 11/12/18 06:30 Seg Neutrophils # Man 9.9 K/mm3 (1.8-7.7) H 11/17/18 04:40 Band Neutrophils # 0.0 K/mm3 11/17/18 04:40 Lymphocytes # (Manual) 0.1 K/mm3 (1.2-5.4) L 11/17/18 04:40 Abs React Lymphs (Man) 0.0 K/mm3 11/17/18 04:40 Monocytes # (Manual) 0.1 K/mm3 (0.0-0.8) 11/17/18 04:40 Eosinophils # (Manual) 0.0 K/mm3 (0.0-0.4) 11/17/18 04:40 Basophils # (Manual) 0.0 K/mm3 (0.0-0.1) 11/17/18 04:40 Metamyelocytes # 0.0 K/mm3 11/17/18 04:40 Myelocytes # 0.0 K/mm3 11/17/18 04:40 Promyelocytes # 0.0 K/mm3 11/17/18 04:40 Blast Cells # 0.0 K/mm3 11/17/18 04:40 WBC Morphology Not Reportable 11/17/18 04:40 Hypersegmented Neuts Not Reportable 11/17/18 04:40 Hyposegmented Neuts Not Reportable 11/17/18 04:40 Hypogranular Neuts Not Reportable 11/17/18 04:40 Smudge Cells Not Reportable 11/17/18 04:40 Toxic Granulation Not Reportable 11/17/18 04:40 Toxic Vacuolation Not Reportable 11/17/18 04:40 Dohle Bodies Not Reportable 11/17/18 04:40 Pelger-Huet Anomaly Not Reportable 11/17/18 04:40 Meghan Rods Not Reportable 11/17/18 04:40 Platelet Estimate Appears decreased 11/17/18 04:40 Clumped Platelets Not Reportable 11/17/18 04:40 Plt Clumps, EDTA Not Reportable 11/17/18 04:40 Large Platelets Not Reportable 11/17/18 04:40 Giant Platelets Not Reportable 11/17/18 04:40 Platelet Satelliting Not Reportable 11/17/18 04:40 Plt Morphology Comment Not Reportable 11/17/18 04:40 RBC Morphology Not Reportable 11/17/18 04:40 Dimorphic RBCs Not Reportable 11/17/18 04:40 Polychromasia Not Reportable 11/17/18 04:40 Hypochromasia Not Reportable 11/17/18 04:40 Poikilocytosis Not Reportable 11/17/18 04:40 Anisocytosis 1+ 11/17/18 04:40 Microcytosis Not Reportable 11/17/18 04:40 Macrocytosis Not Reportable 11/17/18 04:40 Spherocytes Not Reportable 11/17/18 04:40 Pappenheimer Bodies Not Reportable 11/17/18 04:40 Sickle Cells Not Reportable 11/17/18 04:40 Target Cells Rare 11/17/18 04:40 Tear Drop Cells Rare 11/17/18 04:40 Ovalocytes 1+ 11/17/18 04:40 Helmet Cells Not Reportable 11/17/18 04:40 Martin-[place]woody Bodies Not Reportable 11/17/18 04:40 [place] Rings Not Reportable 11/17/18 04:40 [place] Cells Not Reportable 11/17/18 04:40 Bite Cells Not Reportable 11/17/18 04:40 Crenated Cell Not Reportable 11/17/18 04:40 Elliptocytes Few 11/17/18 04:40 Acanthocytes (Spur) Not Reportable 11/17/18 04:40 Rouleaux Not Reportable 11/17/18 04:40 Hemoglobin C Crystals Not Reportable 11/17/18 04:40 Schistocytes Not Reportable 11/17/18 04:40 Malaria parasites Not Reportable 11/17/18 04:40 [place] Bodies Not Reportable 11/17/18 04:40 Hem Pathologist Commnt No 11/17/18 04:40 D-Dimer 2061.41 ng/mlDDU (0-234) H 11/11/18 20:41 POC ABG pH 7.339 (7.35-7.45) L 11/15/18 14:26 POC ABG pCO2 35.6 (35-45) 11/15/18 14:26 POC ABG pO2 102 (80-105) 11/15/18 14:26 POC ABG HCO3 19.1 11/15/18 14:26 POC ABG Total CO2 20 11/15/18 14:26 POC ABG O2 Sat 98 11/15/18 14:26 POC ABG Base Excess -7 11/15/18 14:26 VBG pH 7.343 (7.320-7.420) 11/11/18 15:04 FiO2 30 % 11/15/18 14:26 Sodium 139 mmol/L (137-145) 11/17/18 04:40 Potassium 3.8 mmol/L (3.6-5.0) 11/17/18 04:40 Chloride 107.0 mmol/L (98-107) 11/17/18 04:40 Carbon Dioxide 27 mmol/L (22-30) 11/17/18 04:40 Anion Gap 9 mmol/L 11/17/18 04:40 BUN 21 mg/dL (9-20) H 11/17/18 04:40 Creatinine 0.4 mg/dL (0.8-1.5) L 11/17/18 04:40 Estimated GFR > 60 ml/min 11/17/18 04:40 BUN/Creatinine Ratio 53 % 11/17/18 04:40 Glucose 168 mg/dL (75-100) H 11/17/18 04:40 POC Glucose 155 (70-105) H 11/18/18 12:03 Lactic Acid 1.10 mmol/L (0.7-2.0) 11/11/18 23:19 Calcium 7.7 mg/dL (8.4-10.2) L 11/17/18 04:40 Phosphorus 2.50 mg/dL (2.5-4.5) D 11/14/18 05:30 Magnesium 2.10 mg/dL (1.7-2.3) 11/13/18 05:20 Total Bilirubin 0.40 mg/dL (0.1-1.2) 11/12/18 06:30 AST 17 units/L (5-40) 11/12/18 06:30 ALT 11 units/L (7-56) 11/12/18 06:30 Alkaline Phosphatase 72 units/L (35-129) 11/12/18 06:30 C-Reactive Protein 13.70 mg/dL (0.00-1.30) H 11/11/18 20:41 Total Protein 5.2 g/dL (6.3-8.2) L 11/12/18 06:30 Albumin 2.0 g/dL (3.9-5) L 11/12/18 06:30 Albumin/Globulin Ratio 0.6 % 11/12/18 06:30 TSH 0.900 mlU/mL (0.270-4.200) 11/11/18 09:55 Urine Color [place] (Yellow) 11/11/18 10:22 Urine Turbidity Turbid (Clear) 11/11/18 10:22 Urine pH 8.0 (5.0-7.0) H 11/11/18 10:22 Ur Specific [place] 1.011 (1.003-1.030) 11/11/18 10:22 Urine Protein 100 mg/dl mg/dL (Negative) 11/11/18 10:22 Urine Glucose (UA) Neg mg/dL (Negative) 11/11/18 10:22 Urine Ketones Neg mg/dL (Negative) 11/11/18 10:22 Urine Blood Sm (Negative) 11/11/18 10:22 Urine Nitrite Neg (Negative) 11/11/18 10:22 Urine Bilirubin Neg (Negative) 11/11/18 10:22 Urine Urobilinogen < 2.0 mg/dL (<2.0) 11/11/18 10:22 Ur Leukocyte Esterase Lg (Negative) 11/11/18 10:22 Urine WBC (Auto) > 182.0 /HPF (0.0-6.0) H 11/11/18 10:22 Urine RBC (Auto) 27.0 /HPF (0.0-6.0) 11/11/18 10:22 Urine Bacteria (Auto) 3+ /HPF (Negative) 11/11/18 10:22 Urine WBC Clumps 3+ /HPF 11/11/18 10:22 Urine Mucus Few /HPF 11/11/18 10:22 Plasma/Serum Alcohol < 0.01 % (0-0.07) 11/11/18 09:55 Nutrition/Malnutrition Assess - Dietary Evaluation Nutrition/Malnutrition Findings: Nutrition Notes Start: 11/12/18 09:27 Freq: Status: Active Protocol: Document 11/18/18 12:50 KH (Rec: 11/18/18 13:39 KH [email or web address]) Co-Sign 11/18/18 12:50 LP Nutrition Notes Initial or Follow up Reassessment Current Diagnosis Sepsis Respiratory Failure Other Pertinent Diagnosis UTI, Pneu, toxic metabolic encephalopathy, ARF Current Diet TF - Glucerna 1.2 at 65ml/hr Labs/Tests Glucose: 172 Pertinent Medications Solu-medrol Height 5 ft 7 in Weight 79 kg [place] Body Weight (kg) 67.27 BMI 27.2 Subjective/Other Information Pt f/u for BG labs and stable TF. Observed Glucerna 1.2 infusing at goal rate of 65 ml /hr. Per pt. nurse, pt. continues to tolerate TF. Percent of energy/protein needs met: 100%/100% Burn Absent Trauma Absent #1 Nutrition Diagnosis Inadequate oral intake Diagnosis Progress(for reassessment Continues documentation) Is patient on ventilator? Yes Is Patient Ambulatory and/or Out of Bed No REE-([facility]-confined to bed) 7789.716 Calculation Used for Recommendations [facility] Additional Notes Pro needs: 79-103g(1-1.3 g/kg BW) Nutrition Intervention Change Diet Order: TF Nutrition Support: Continue Glucerna 1.2 at 65 ml /hr with 100 ml water flush q4h Kcal 1,872 Protein (gm) 94 Fluid (mL) 1,256 Fiber (gm) 25 Goal #1 Continue to meet at least 75% of energy and protein needs via TF Follow-Up By: 11/25/18 Additional Comments F/u for stable TF
[2018-11-18] MEDS: NEURONTIN PO SCH (23:21)
[2018-11-19] MEDS: HumaLOG SUB-Q SCH ×2 (00:17→05:38)
[2018-11-19] MEDS: SOLU-Medrol IV SCH ×2 (05:37→14:15)
[2018-11-19] MEDS: PROAMATINE PO SCH ×2 (08:02→14:15)
[2018-11-19] MEDS: DUONEB *Not for PRN Use IH SCH ×2 (08:10→15:45)
[2018-11-19 09:02] VITALS: BP 102/58
--- NOTE | 2018-11-19 10:45 | Progress Note ---
Assessment and Plan Assessment: 58 y/o male with history of HTN, DM, COPD, CVA with aphasia and right-sided hemiparesis, contracture, dysphagia s/p G tube placement; admitted on 11/11/2018 from the assisted due to AMS/confusion/unresponsiveness: 1) Severe Sepsis with septic shock:, Resolved Etiology most likely multifactorial - complicated UTI +/- pneumonia. CRP 13. Blood culture neg. 2) Complicated UTI: patient with hsitory of recurrrent UTI. Reviewed of micro records noted urine culture in January 2015 with MDR Pseudomonas sensitive to cefepime and zosyn, resistant to imipenem and quinolones. UA with wbc 182, LE large. CT scan of the abdomen diffusely irregular wall thickening with bilateral hydronephrosis and bilateral nonobstructive renal stones. There was also masslike area in the left superior bladder wall, also noted moderate bilateral hydroureteronephrosis without obstructing ureteral calculus. [place] placed this admission. 3) Pneumonia/HAP: CXR showed RML atelectasis, repeat CXR showed bilateral pulmonary vascular congestion. CT abd showed right lower lobe consolidation concerning for pneumonia. Right middle lobe opacities also concerning for pneumonia versus aspiration. Tracheal asp 11/11/2018 VISA (VANCOMYCIN INTERMEDIATE STAPH AUREUS). 4) Respiratory failure: still intubated. Recommendations: - requested confirmatory E-test for VANCOMYCIN INTERMEDIATE STAPH AUREUS, if positive isolate has to be reported to [facility] for epidemiology purposes - Will be discharged with [place], will follow up with urology for suprapubic catheter outpatient - Strict contact isolation due to VISA and history of MDR Pseudomonas - continue zyvox 600 mg PO q12h to cover VISA pneumonia D5 of 10 -prescription on the chart - ok to discharge from ID standpoint [facility] M: [id number] O:[phone] Subjective Date of service: 11/19/18 Principal diagnosis: Acute Hypoxemic Resp Failure; Severe sepsis with shock; UTI; BETHEL Interval history: Patient seen and examined. Nonverbal, no fevers. No acute distress. Family not a bedside. Objective - Exam Narrative Exam: General appearance: Alert, non verbal, no acute distress Eyes: anicteric sclerae, moist conjunctivae; no lid-lag; PERRLA HENT: Atraumatic; oropharynx limited Neck: Trachea midline; supple, no thyromegaly or lymphadenopathy Lungs: clear to auscultation CV: RRR, no murmurs Abdomen: Soft, non-tender; +PEG Extremities: + left arm edema + RUE contraction Skin: Normal temperature, turgor and texture; no rash, ulcers or subcutaneous nodules Psych: alert does not follows commands Neuro: alert not agitated - Constitutional Vitals: Vital Signs Temp Pulse Resp BP Pulse Ox 98.2 F 84 20 102/58 91 11/19/18 09:01 11/19/18 09:01 11/19/18 09:01 11/19/18 09:01 11/19/18 09:01 Temperature -Last 24 Hours Temperature 98.2 F Temperature 98.3 F Temperature 97.8 F Temperature 98.0 F Temperature 98.0 F Temperature 98.2 F - Labs CBC & Chem 7: 11/17/18 04:40 11/17/18 04:40 Labs: Abnormal lab results 11/18/18 11/18/18 11/18/18 Range/Units 12:03 16:52 23:46 POC Glucose 155 H 241 H 217 H (70-105) 11/19/18 11/19/18 Range/Units 05:23 08:03 POC Glucose 230 H 206 H (70-105)
--- NOTE | 2018-11-19 11:06 | Discharge Summary ---
Providers - Providers Date of Admission: 11/11/18 15:42 Attending physician: СВЕТЛАНА PRYOR MD 11/11/18 14:35 Consult to Physician [CONS] Urgent Comment: Dr. 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 11/11/18 14:37 Consult to Physician [CONS] Urgent Comment: Franko @ notified @ 17:20- [facility] Consulting Provider: JOSEPH ROBBINS Physician Instructions: Reason For Exam: renal failure, obstruction, uremia Consult to Physician [CONS] Urgent Comment: Charlie BUSTOS notified @ 14:47- [facility] Consulting Provider: PATRICK CEDILLO Physician Instructions: Reason For Exam: b/l hydro, bladder mass, renal failure 11/11/18 15:56 Consult to Physician [CONS] Routine Comment: Stephanie @ notified @ 16:03- [facility] Consulting Provider: LETY VICK Physician Instructions: Reason For Exam: sepsis, respiratory failure 11/11/18 16:03 Consult to Dietitian/Nutrition [CONS] Routine Physician Instructions: Reason For Exam: Write and manage tube feding Reason for Consult: Evaluate nutritional intake 11/12/18 13:08 Consult to Dietitian/Nutrition [CONS] Routine Physician Instructions: Reason For Exam: tube feeds Reason for Consult: Write/Manage Tube Feeding 11/12/18 20:21 Consult to Physician [CONS] Routine Comment: Consulting Provider: CATRACHO JOLLY Physician Instructions: Reason For Exam: Sepsis Syndrome 11/15/18 14:23 Consult to Wound/ET Nurse [CONS] Routine Reason For Exam: wound eval 11/17/18 14:35 Physical Therapy Evaluation and Treat [CONS] Routine Comment: Reason For Exam: Debility 11/17/18 14:36 Occupational Therapy Evaluate and Treat [CONS] Routine Comment: Reason For Exam: Debility Primary care physician: [employer] DISTRI[employer] Hospitalization Reason for admission: Septic shock Condition: Stable Pertinent studies: CXR on admission IMPRESSION: Right middle and lower lobe atelectasis. CT abdomen and Pelvis IMPRESSION: 1. Diffuse, irregular urinary bladder wall thickening which may be related to cystitis versus bladder outlet obstruction or possibly underlying bladder neoplasm especially given the masslike area within the left superior bladder wall. Consider further evaluation with cystoscopy. 2. Small amount of high attenuation material layering within the right posterior urinary bladder may represent infectious material versus hemorrhage. 3. Moderate bilateral hydroureteronephrosis without obstructing ureteral calculus. 4. Bilateral nonobstructing renal calculi. 5. Simple right renal cyst. 6. Large amount of retained stool in the rectum. 7. Cholelithiasis. 8. Right lower lobe consolidation concerning for pneumonia. Right middle lobe opacities also concerning for pneumonia versus aspiration. 9. Moderate to severe coronary artery calculi. 10. Nonspecific bilateral adrenal gland lesions could be further assessed on dedicated adrenal CT or MRI. CXR while intubated IMPRESSION: Mildly improved right infrahilar subsegmental atelectasis or infiltrate. Recommend repositioning of the endotracheal tube. Hospital course: History of present illness: 58 YO Male F[employer] Resident with HTN, DM, COPD, CVA with LHP aphasia, Contracture, and Dysphagia S/P G tube placement, DM, COPD, presents to ED for evaluation. Pt is stuporous and unable to provide history. History taken from SNF staff. As per SNF staff, the patient was found to be confused and nonresponsive. EMS notified and upon arrival the patient was found to be in distress. Pt transported to [facility] for further care and evaluation. Pt seen and evaluated in ED and found to have Sepsis secondary to UTI, Acute Renal Failure, Acute Hypoxemic Respiratory Failure. Pt admitted to ICU and initiated on sepsis protocol. No reports of fever, chills, CP, Palpitations, Trauma, BRBPR, productive cough, skin rash or recent ill contacts. Patient was admitted to ICU for septic shock he was on pressors and IV antibiotics, ID was consulted and improved appreciated.. Patient was intubated was on mechanical ventilation pulmonary critical care was following him and input appreciated. Patient is off pressors and the patient was holding without pressors, acute kidney injury resolved, patient was extubated and transferred to the floor. Patient had UTI, pneumonia and was treated appropriately. Tracheal aspirate grew VISA and I do recommended to treat him with zyvox and was treated with Iv while inpatient and will continue for 4 more days with PO. ID wrote a script for zyvox. Patient was aphasic at baseline. Patient is hemodynamically stable discharged back to [facility]. Disposition: [id number] [facility] Time spent for discharge: 34 minutes - Discharge Diagnoses (1) Septic shock Status: Acute (2) ARF (acute renal failure) with tubular necrosis Status: Acute (3) Bladder mass Status: Acute (4) Fever Status: Acute (5) CVA, old, aphasia Status: Chronic (6) Debility Status: Chronic (7) Diabetes 1.5, managed as type 2 Status: Chronic (8) Anemia Status: Acute (9) COPD exacerbation Status: Acute (10) History of CVA with residual deficit Status: Acute (11) Hypoxia Status: Acute (12) Pneumonia Status: Acute (13) UTI (urinary tract infection) Status: Acute Qualifiers: Encounter type: initial encounter (14) Dysphagia Status: Chronic (15) Stage IV pressure ulcer of sacral region Status: Chronic Core Measure Documentation - Palliative Care Palliative Care/ Comfort Measures: Not Applicable - Core Measures Any of the following diagnoses?: history only (cva) Exam - Physical Exam Narrative exam: Patientwas extubated 11/15/18 The patient appeared well nourished and normally developed. Vital signs as documented. Head exam is unremarkable. No scleral icterus . Neck is without jugular venous distension, thyromegaly, or carotid bruits. Lungs are clear to auscultation. Cardiac exam reveals regular rate and Rhythm. Abdominal exam reveals normal bowel sounds. Extremities contracted extremities. 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 - Constitutional Vitals: Temp Pulse Resp BP Pulse Ox 98.2 F 84 20 102/58 91 11/19/18 09:01 11/19/18 09:01 11/19/18 09:01 11/19/18 09:01 11/19/18 09:01 Plan Activity: no restrictions Weight Bearing Status: Full Weight Bearing Diet: per dietitian instruction Follow up with: EAGLE HANEY MD [Primary Care Provider] - 3-5 Days KATIE MOSLEY MD [Staff Physician] - 14 Days Prescriptions: Linezolid [Zyvox] 600 mg PO BID 5 Days #10 tablet
[2018-11-19] MEDS: HEPARIN SUB-Q SCH (11:19)
[2018-11-19] MEDS: PREVACID SOLUTAB FEEDTUBE SCH (11:19)
[2018-11-19] MEDS: POTASSIUM CHLORIDE FEEDTUBE SCH (11:20)
[2018-11-19] MEDS: FLORANEX PO SCH (11:20)
[2018-11-19] MEDS: ZYVOX PO SCH (11:20)
[2018-11-19] MEDS: Centrum Liq PO SCH (11:21)
[2018-11-19] MEDS: VITAMIN C FEEDTUBE SCH ×2 (11:21→11:22)
[2018-11-19] MEDS: LANTUS SUB-Q SCH (11:23)
== END 2018-11-19 15:30 | DRG 870 ==
LOC: ED 09:29 → CC1 15:42 → 4A 11-18 00:18
PROVIDERS: ADMIT Internal Medicine; ATTEND Internal Medicine
PROC: 5A1955Z Respiratory Ventilation, Greater than 96 Consecutive Hours (ICD-10-PCS; principal; 2018-11-11)
PROC: 0BH17EZ Insertion of Endotracheal Airway into Trachea, Via Natural or Artificial Opening (ICD-10-PCS; 2018-11-11)
PROC: 4A033R1 Measurement of Arterial Saturation, Peripheral, Percutaneous Approach (ICD-10-PCS; 2018-11-11)
PROC: 02HV33Z Insertion of Infusion Device into Superior Vena Cava, Percutaneous Approach (ICD-10-PCS; 2018-11-11)
PROC: B548ZZA Ultrasonography of Superior Vena Cava, Guidance (ICD-10-PCS; 2018-11-11)
DX: A41.9 Sepsis, unspecified organism (principal); L89.154 Pressure ulcer of sacral region, stage 4; N17.0 Acute kidney failure with tubular necrosis; J96.01 Acute respiratory failure with hypoxia; R65.21 Severe sepsis with septic shock; J18.9 Pneumonia, unspecified organism; G92 Toxic encephalopathy; N39.0 Urinary tract infection, site not specified; I69.354 Hemiplegia and hemiparesis following cerebral infarction affecting left non-dominant side; J44.1 Chronic obstructive pulmonary disease with (acute) exacerbation; J44.0 Chronic obstructive pulmonary disease with (acute) lower respiratory infection; N13.2 Hydronephrosis with renal and ureteral calculous obstruction; E87.1 Hypo-osmolality and hyponatremia; N28.1 Cyst of kidney, acquired; K80.20 Calculus of gallbladder without cholecystitis without obstruction; I10 Essential (primary) hypertension; E11.9 Type 2 diabetes mellitus without complications; N32.9 Bladder disorder, unspecified; D64.9 Anemia, unspecified; R13.12 Dysphagia, oropharyngeal phase; E83.39 Other disorders of phosphorus metabolism; Z93.1 Gastrostomy status; I69.320 Aphasia following cerebral infarction; I69.391 Dysphagia following cerebral infarction; Z82.49 Family history of ischemic heart disease and other diseases of the circulatory system; Z83.3 Family history of diabetes mellitus; Z79.899 Other long term (current) drug therapy; Z79.82 Long term (current) use of aspirin
CPT/HCPCS: 36415; 36600; 70450; 71045; 74176; 80048; 80053; 80320; 81001; 82140; 82803; 82805; 82962; 83735; 84100; 84443; 85007; 85025; 85379; 86140; 87040; 87070; 87076; 87086; 87186; 87205; 93005; 93010; 93306; 93970; 94002; 94003; 94640; 94760; G0378; A9270-GY; G0480; J0330; J0692; J0696; J1644; J1815; J1956; J2020; J2060; J2250; J2920; J3370; J7030

== ENCOUNTER 2018-12-31 18:20 | Inpatient (IN) | payer MEDICARE ==
[2018-12-31] MEDS ORDERED: NACL 0.9% 1000 ML IV ONE (18:43)
[2018-12-31] MEDS ORDERED: ROCEPHIN/NS 1 GM/50 ML 1 GM/50 ML BAG IV ONE (18:45)
--- NOTE | 2018-12-31 18:53 | Emergency Department Report ---
HPI - General Chief Complaint: Altered Mental Status Time Seen by Provider: 12/31/18 18:33 - HPI HPI: 58-year-old male presents to the emergency department via EMS from his [place] [facility] at [facility] with complaint of altered mental status. The patient presents with a fever, tachycardia. He has a history of CVA, COPD, diabetes, hypertension, indwelling Tjierina catheter. Apparently the patient is usually aphasic but does usually respond with his eyes and today he has been even more altered than usual. He did not receive anything for her symptoms prior to presentation. Patient is a poor historian secondary to his chronic and acute medical conditions. ED Past Medical Hx - Past Medical History Hx Hypertension: Yes Hx CVA: Yes Hx Congestive Heart Failure: No (unknown) Hx Diabetes: Yes Hx Renal Disease: No (BETHEL, resolved) Hx Asthma: No (unknown) Hx COPD: Yes Hx HIV: No - Surgical History Additional Surgical History: bree - Social History Smoking Status: Unknown if ever smoked - Medications Home Medications: Home Medications Medication Instructions Recorded Confirmed Last Taken Type AtorvaSTATin [Lipitor] 40 mg FEEDTUBE QHS 06/21/16 11/11/18 06/20/16 History Ascorbic Acid [Vitamin C] 500 mg FEEDTUBE QDAY 07/14/18 11/11/18 Unknown History Aspirin [Adult Aspirin Regimen] 81 mg FEEDTUBE DAILY 07/14/18 11/11/18 Unknown History Ipratropium/Albuterol Sulfate 1 ampul IH Q6HR 07/14/18 11/11/18 Unknown History [DUONEB *Not for PRN Use*] Multivitamin [Multiple Vitamins] 1 each FEEDTUBE DAILY 07/14/18 11/11/18 Unknown History Protein Supplement [Promod] 30 ml FEEDTUBE Q8H 07/14/18 11/11/18 Unknown History Acetaminophen [Tylenol] 650 mg FEEDTUBE Q4HR PRN 11/11/18 11/11/18 Unknown History Gabapentin [Neurontin] 300 mg FEEDTUBE BID 11/11/18 11/11/18 Unknown History L. Acidophilus/L.bulgaricus 1 each FEEDTUBE QAM 11/11/18 11/11/18 Unknown Hi story [Lactobacillus Tablet] Omeprazole 20 mg FEEDTUBE QAM 11/11/18 11/11/18 Unknown History Potassium Chloride 20 meq FEEDTUBE QDAY 11/11/18 11/11/18 Unknown History guaiFENesin DM [Robitussin Dm] 10 ml FEEDTUBE Q6HR PRN 11/11/18 11/11/18 Unknown History levoFLOXacin [Levaquin TAB] 500 mg FEEDTUBE QDAY 11/11/18 11/11/18 Unknown History Linezolid [Zyvox] 600 mg PO BID 5 Days #10 tablet 11/19/18 Unknown Rx ED Review of Systems ROS: Stated complaint: UNRESPONSIVE Other details as noted in HPI Comment: Unobtainable due to pts medical conditions Physical Exam - Physical Exam Vital Signs: Vital Signs 12/31/18 18:28 Temperature 101.6 F H Pulse Rate 128 H Blood Pressure 108/70 Physical Exam: GENERAL: Patient is ill-appearing. HEENT: Normocephalic. Atraumatic. Patient has moist mucous membranes. EYES: Pupils are equal and reactive to light bilaterally. NECK: Supple. Trachea is midline. CHEST/LUNGS: Clear to auscultation. There is no respiratory distress noted. HEART/CARDIOVASCULAR: Regular. There is mild to moderate tachycardia. There is no obvious murmur. ABDOMEN: Abdomen is soft, nontender. Patient has normal bowel sounds. There is no abdominal distention. SKIN: Skin is hot but dry. NEURO: Patient is mostly unresponsive except to painful stimuli. Right-sided hemiparesis. MUSCULOSKELETAL: The right upper extremity is contracted. Radial pulses +2 over 4 bilaterally. ED Course Vital Signs 12/31/18 18:28 Temperature 101.6 F H Pulse Rate 128 H Blood Pressure 108/70 - Central Line Placement Right Femoral Consent Obtained: emergent situation Time Out Performed: Yes Patient Placed on Monitor/Pulse Ox: Yes MD Prep: mask, gown, gloves Central Line Prep: Chlorhexidine scrub Ultrasound Used for Placement: Yes Central Line Lumen Inserted: triple Central Line Position: all ports aspirated, flus, sutured in place with nyl Dressing Applied: Tegaderm, sterile gauze/tape Patient Tolerated Procedure: well Complications: none ED Medical Decision Making - Lab Data Result diagrams: 12/31/18 19:12 12/31/18 19:12 - EKG Data -: EKG Interpreted by Me EKG shows normal: sinus rhythm (PACs), axis (left axis deviation), intervals, QRS complexes (low voltage), ST-T waves Rate: tachycardia (106 bpm) - EKG Data When compared to previous EKG there are: previous EKG unavailable Interpretation: other (PACs, sinus tach, low voltage, left axis deviation) - Radiology Data Radiology results: report reviewed, image reviewed interpreted by me: Chest x-ray does not show any pneumothorax, pleural effusion, pneumonia or obvious focal consolidation. PROCEDURE: CT HEAD/BRAIN WO CON TECHNIQUE: Axial helical imaging from the skull base to the vertex. HISTORY: Altered Mental Status COMPARISONS: Head CT dated November 11, 2018 The report of that study is not available for review at the time of this patient. FINDINGS: Low-attenuation in the subcortical and deep white matter of the cerebral hemispheres bilaterally and within the matthew is nonspecific in appearance but may represent areas of chronic postischemic demyelination/small vessel disease. There are lacunar infarcts in the thalami bilaterally that appear to be chronic. There are small infarcts in the cerebellum bilaterally that appear to be chronic. There is no evidence of intracranial hemorrhage or mass effect. Ventriculomegaly appears to be out of proportion to the degree of atrophy. A component of hydrocephalus cannot be excluded. There is atherosclerotic vascular calcification of the internal carotid arteries and vertebral arteries bilaterally at the skull base. The visualized portions of the orbits, paranasal and mastoid sinuses are notable for mild to moderate bilateral ethmoid sinus mucosal thickening and deformity of the medial wall of the left orbit. This may represent sequela of previous medial orbital wall fracture or may be congenital in nature. The bony structures are unremarkable. IMPRESSION: 1. No evidence of an acute intracranial process, intracranial hemorrhage or mass effect. No significant change since previous study dated November 11, 2018. This document is electronically signed by Juhi Mosher MD., December 31 2018 10:36:44 PM ET Transcribed By: ED Dictated By: JUHI MOSHER MD Electronically Authenticated By: JUHI MOSHER MD Signed Date/Time: 12/31/18 970 - Medical Decision Making This patient presents to the emergency department from his [place] [facility] [place] facility with a complaint of fever and worsening altered mental status. CT of the head does not show any bleed, shift, mass, ischemia or any other acute process. There is no lactic acidosis, but the patient does have a fever, tachycardia and a urinary tract infection as the source. He was started empirically on Zosyn. Patient has some chronic kidney disease. He has some elevated troponins which may be secondary to his chronic kidney disease and/or demand ischemia. EKG did not show any signs of ST elevation IA. Patient started having hypotension with concern for septic shock. He was still hypotensive after 3.5 L of IV fluid re suscitation so a central line was placed and the patient was started on pressors. He will be admitted to hospital for further evaluation and treatment was accepted for admission by the hospitalist, Dr. Hicks. - Differential Diagnosis UTI, Pneumonia, CVA, Sepsis Critical Care Time: Yes Critical care time in (mins) excluding proc time.: 35 Critical care attestation.: If time is entered above; I have spent that time in minutes in the direct care of this critically ill patient, excluding procedure time. Critical care time spent on this patient and during his initial evaluation, multiple re- evaluations, ordering an interpretation of labs and imaging, ordering and administration of medication including pressors. This does not include the time spent doing the central line procedure.There is a high probability of clinically significant, sudden, or life-threatening deterioration that has required multiple evaluations and direct attention, intervention, and management. Critical Care Time: 35 minutes ED Disposition Clinical Impression: Elevated troponin, Septic shock Altered mental status Qualifiers: Altered mental status type: unspecified Qualified Code(s): R41.82 - Altered mental status, unspecified UTI (urinary tract infection) Qualifiers: Indwelling urinary catheter type: unspecified Encounter type: initial encounter Disposition: OP ADMIT IP TO THIS HOSP Is pt being admited?: Yes Condition: Serious Time of Disposition: 01:06
[2018-12-31 19:31] LABS: Hematocrit 41.9 % (35.5-45.6); Hemoglobin 13.8 gm/dl (11.8-15.2); Mean Corpuscular HGB Conc 33 % (32-34); Mean Corpuscular Volume 94 fl (84-94); Platelet Count 118 K/mm3 (140-440); Red Blood Count 4.48 M/mm3 (3.65-5.03); Red Cell Distribution Width 15.2 % (13.2-15.2)
[2018-12-31 19:31] LABS: Bacteria,Urine 4+ /HPF (Negative); Bilirubin,Urine NEG (Negative); Blood,Urine NEG (Negative); Color,Urine Amber (Yellow); Mucus,Urine 2+ /HPF; Urobilinogen,Urine < 2.0 mg/dL (<2.0)
[2018-12-31 19:40] LABS: WBC,Urine > 182.0 /HPF (0.0-6.0)
[2018-12-31 20:10] LABS: Albumin 2.8 g/dL (3.9-5); Calcium 8.7 mg/dL (8.4-10.2); Chol/HDL Ratio 2.62 %
[2018-12-31] MEDS ORDERED: TYLENOL PO ONE (20:17)
[2018-12-31] MEDS: TYLENOL PR ONE ×2 (20:18→23:07)
--- NOTE | 2018-12-31 20:26 | XRay Report ---
PROCEDURE: XR CHEST 1V AP TECHNIQUE: Frontal portable view of the chest HISTORY: AMS COMPARISONS: Chest x-ray dated November 17, 2018 FINDINGS: There is bilateral hypoinflation with crowding of the bronchovascular structures. There is prominence of the interstitial markings in both lungs with peribronchial thickening similar in appearance to the previous study. There is no evidence of focal infiltrate, pneumothorax or pleural fluid collection. The cardiac silhouette is normal size. The thoracic aorta is tortuous. The bony structures are notable for degenerative change of the shoulder joints bilaterally. Visualiza tion of detail of the thoracic spine is limited. IMPRESSION: 1. Hypoinflation. 2. Prominence of the interstitial markings with peribronchial thickening similar in appearance to the previous study. No definite evidence of focal infiltrate. This document is electronically signed by Juhi Mosher MD., December 31 2018 08:24:44 PM ET
[2018-12-31 20:41] LABS: Band Neutrophils # (Manual) 0.3 K/mm3; Basophils % (Manual) 0 % (0.0-1.8); Eosinophils % (Manual) 0 % (0.0-4.3); Total Cells Counted 100
[2018-12-31 20:42] LABS: Ovalocytes Few; Platelet Estimate Appears Decreased
[2018-12-31] MEDS ORDERED: NACL 0.9% 1000 ML 1,000 ML IV ONE ×2 (22:02→22:52)
--- NOTE | 2018-12-31 22:38 | Cat Scan Report ---
PROCEDURE: CT HEAD/BRAIN WO CON TECHNIQUE: Axial helical imaging from the skull base to the vertex. HISTORY: Altered Mental Status COMPARISONS: Head CT dated November 11, 2018 The report of that study is not available for review at the time of this patient. FINDINGS: Low-attenuation in the subcortical and deep white matter of the cerebral hemispheres bilaterally and within the matthew is nonspecific in appearance but may represent areas of chronic postischemic demyelin ation/small vessel disease. There are lacunar infarcts in the thalami bilaterally that appear to be chronic. There are small infarcts in the cerebellum bilaterally that appear to be chronic. There is no evidence of intracranial hemorrhage or mass effect. Ventriculomegaly appears to be out of proportion to the degree of atrophy. A component of hydrocephal us cannot be excluded. There is atherosclerotic vascular calcification of the internal carotid arteries and vertebral arteri es bilaterally at the skull base. The visualized portions of the orbits, paranasal and mastoid sinuses are notable for mild to moderate bilateral ethmoid sinus mucosal thickening and deformity of the medial wall of the left orbit. This may represent sequela of previous medial orbital wall fracture or may be congenital in nature. The bony structures are unremarkable. IMPRESSION: 1. No evidence of an acute intracranial process, intracranial hemorrhage or mass effect. No significant change since previous study dated November 11, 2018. This document is electronically signed by Juhi Mosher MD., December 31 2018 10:36:44 PM ET
[2019-01-01] MEDS: LEVOPHED DRIP 4 MG/NS 250 ML 4 MG/250 ML BAG IV SCH ×4 (00:27→19:30)
[2019-01-01] MEDS ORDERED: TYLENOL PO PRN (00:35)
[2019-01-01] MEDS ORDERED: ZOFRAN IV PRN (00:35)
[2019-01-01] MEDS ORDERED: SODIUM CHLORIDE FLUSH SYRINGE 10 ML IV PRN (00:35)
--- NOTE | 2019-01-01 00:41 | History and Physical Report ---
History of Present Illness Date of examination: 01/01/19 Chief complaint: Altered mental status per report History of present illness: Patient is a 58-year-old male with history of CVA, COPD, diabetes, hypertension and indwelling Tijerina catheter who presented to the emergency department via EMS from his long term at [facility] with complaint of altered mental status. Per report, patient is usually aphasic but does usually respond with his eyes, however today, he has been more altered than usual. Patient is unresponsive and no history could be obtained from him. In the ED, he was found to have a fever with tachycardia. Subsequently, his blood pressure trended down, for which he was started on IV pressor after central line placement. Past History Past Medical History: COPD, diabetes, hypertension, stroke, other (obstructive uropathy on chronic Tijerina catheter, chronic dysphagia) Past Surgical History: Other (PEG tube placement, unable to obtain other surgical history due to altered mental status) Social history: other (unable to obtain due to altered mental status) Family history: other (unable to obtain due to altered mental status) Medications and Allergies Allergies Allergy/AdvReac Type Severity Reaction Status Date / Time No Known Allergies Allergy Verified 02/27/15 00:48 Home Medications Medication Instructions Recorded Confirmed Last Taken Type AtorvaSTATin [Lipitor] 40 mg FEEDTUBE QHS 06/21/16 11/11/18 06/20/16 History Ascorbic Acid [Vitamin C] 500 mg FEEDTUBE QDAY 07/14/18 11/11/18 Unknown History Aspirin [Adult Aspirin Regimen] 81 mg FEEDTUBE DAILY 07/14/18 11/11/18 Unknown History Ipratropium/Albuterol Sulfate 1 ampul IH Q6HR 07/14/18 11/11/18 Unknown History [DUONEB *Not for PRN Use*] Multivitamin [Multiple Vitamins] 1 each FEEDTUBE DAILY 07/14/18 11/11/18 Unknown History Protein Supplement [Promod] 30 ml FEEDTUBE Q8H 07/14/18 11/11/18 Unknown History Acetaminophen [Tylenol] 650 mg FEEDTUBE Q4HR PRN 11/11/18 11/11/18 Unknown History Gabapentin [Neurontin] 300 mg FEEDTUBE BID 11/11/18 11/11/18 Unknown History L. Acidophilus/L.bulgaricus 1 each FEEDTUBE QAM 11/11/18 11/11/18 Unknown History [Lactobacillus Tablet] Omeprazole 20 mg FEEDTUBE QAM 11/11/18 11/11/18 Unknown History Potassium Chloride 20 meq FEEDTUBE QDAY 11/11/18 11/11/18 Unknown History guaiFENesin DM [Robitussin Dm] 10 ml FEEDTUBE Q6HR PRN 11/11/18 11/11/18 Unknown History levoFLOXacin [Levaquin TAB] 500 mg FEEDTUBE QDAY 11/11/18 11/11/18 Unknown History Linezolid [Zyvox] 600 mg PO BID 5 Days #10 tablet 11/19/18 Unknown Rx Active Meds: Active Medications Acetaminophen (Tylenol) 650 mg PO Q4H PRN PRN Reason: Pain MILD(1-3)/Fever >100.5/WELLER Enoxaparin Sodium (Lovenox) 40 mg SUB-Q QDAY SHIRA Famotidine (Pepcid) 10 mg IV BID SHIRA Norepinephrine (Levophed Drip 4 Mg/Ns 250 Ml) 4 mg in 250 mls @ 7.5 mls/hr IV TITR SHIRA; Protocol Last Titration: 01/01/19 00:30 Dose: 4 mcg/min, 15 mls/hr Documented by: Piperacillin Sod/Tazobactam Sod (Zosyn/Ns 4.5gm/100ml) 4.5 gm in 100 mls @ 200 mls/hr IV Q8HR SHIRA; Protocol Ondansetron HCl (Zofran) 4 mg IV Q8H PRN PRN Reason: Nausea And Vomiting Sodium Chloride (Sodium Chloride Flush Syringe 10 Ml) 10 ml IV BID SHIRA Sodium Chloride (Sodium Chloride Flush Syringe 10 Ml) 10 ml IV PRN PRN PRN Reason: LINE FLUSH Review of Systems ROS unobtainable: due to mental status (altered mental status) Exam - Constitutional Vitals: Temp Pulse Resp BP Pulse Ox 100.4 F H 84 16 85/50 98 12/31/18 22:08 01/01/19 00:16 01/01/19 00:16 01/01/19 00:16 01/01/19 00:16 General appearance: Present: no acute distress, other (unresponsive) - EENT Eyes: Present: PERRL ENT: clear oral mucosa - Neck Neck: Present: supple - Respiratory Respiratory effort: normal Respiratory: right: CTA, left: rales - Cardiovascular Rhythm: regular Heart Sounds: Present: S1 & S2 - Extremities Extremities: No edema Peripheral Pulses: within normal limits - Abdominal General gastrointestinal: Present: soft, non-tender, non-distended, normal bowel sounds Male genitourinary: Present: deferred - Integumentary Integumentary: Present: clear, warm, dry - Musculoskeletal Musculoskeletal: left sided weakness - Psychiatric Psychiatric: other (unable to assess due to altered mental status) - Neurologic Neurologic: other (patient is unresponsive) Results - Labs CBC & Chem 7: 12/31/18 19:12 12/31/18 19:12 Labs: Laboratory Last Values WBC 8.3 K/mm3 (4.5-11.0) 12/31/18 19:12 RBC 4.48 M/mm3 (3.65-5.03) 12/31/18 19:12 Hgb 13.8 gm/dl (11.8-15.2) 12/31/18 19:12 Hct 41.9 % (35.5-45.6) 12/31/18 19:12 MCV 94 fl (84-94) 12/31/18 19:12 MCH 31 pg (28-32) 12/31/18 19:12 MCHC 33 % (32-34) 12/31/18 19:12 RDW 15.2 % (13.2-15.2) 12/31/18 19:12 Plt Count 118 K/mm3 (140-440) L 12/31/18 19:12 Add Manual Diff Complete 12/31/18 19:12 Total Counted 100 12/31/18 19:12 Seg Neuts % (Manual) 79.0 % (40.0-70.0) H 12/31/18 19:12 Band Neutrophils % 4.0 % 12/31/18 19:12 Lymphocytes % (Manual) 5.0 % (13.4-35.0) L 12/31/18 19:12 Reactive Lymphs % (Man) 0 % 12/31/18 19:12 Monocytes % (Manual) 12.0 % (0.0-7.3) H 12/31/18 19:12 Eosinophils % (Manual) 0 % (0.0-4.3) 12/31/18 19:12 Basophils % (Manual) 0 % (0.0-1.8) 12/31/18 19:12 Metamyelocytes % 0 % 12/31/18 19:12 Myelocytes % 0 % 12/31/18 19:12 Promyelocytes % 0 % 12/31/18 19:12 Blast Cells % 0 % 12/31/18 19:12 Nucleated RBC % Not Reportable 12/31/18 19:12 Seg Neutrophils # Man 6.6 K/mm3 (1.8-7.7) 12/31/18 19:12 Band Neutrophils # 0.3 K/mm3 12/31/18 19:12 Lymphocytes # (Manual) 0.4 K/mm3 (1.2-5.4) L 12/31/18 19:12 Abs React Lymphs (Man) 0.0 K/mm3 12/31/18 19:12 Monocytes # (Manual) 1.0 K/mm3 (0.0-0.8) H 12/31/18 19:12 Eosinophils # (Manual) 0.0 K/mm3 (0.0-0.4) 12/31/18 19:12 Basophils # (Manual) 0.0 K/mm3 (0.0-0.1) 12/31/18 19:12 Metamyelocytes # 0.0 K/mm3 12/31/18 19:12 Myelocytes # 0.0 K/mm3 12/31/18 19:12 Promyelocytes # 0.0 K/mm3 12/31/18 19:12 Blast Cells # 0.0 K/mm3 12/31/18 19:12 WBC Morphology Not Reportable 12/31/18 19:12 Hypersegmented Neuts Not Reportable 12/31/18 19:12 Hyposegmented Neuts Not Reportable 12/31/18 19:12 Hypogranular Neuts Not Reportable 12/31/18 19:12 Smudge Cells Not Reportable 12/31/18 19:12 Toxic Granulation Not Reportable 12/31/18 19:12 Toxic Vacuolation Not Reportable 12/31/18 19:12 Dohle Bodies Not Reportable 12/31/18 19:12 Pelger-Huet Anomaly Not Reportable 12/31/18 19:12 Meghan Rods Not Reportable 12/31/18 19:12 Platelet Estimate Appears decreased 12/31/18 19:12 Clumped Platelets Not Reportable 12/31/18 19:12 Plt Clumps, EDTA Not Reportable 12/31/18 19:12 Large Platelets Not Reportable 12/31/18 19:12 Giant Platelets Not Reportable 12/31/18 19:12 Platelet Satelliting Not Reportable 12/31/18 19:12 Plt Morphology Comment Not Reportable 12/31/18 19:12 RBC Morphology Not Reportable 12/31/18 19:12 Dimorphic RBCs Not Reportable 12/31/18 19:12 Polychromasia Not Reportable 12/31/18 19:12 Hypochromasia Not Reportable 12/31/18 19:12 Poikilocytosis Not Reportable 12/31/18 19:12 Anisocytosis Not Reportable 12/31/18 19:12 Microcytosis Not Reportable 12/31/18 19:12 Macrocytosis Not Reportable 12/31/18 19:12 Spherocytes Not Reportable 12/31/18 19:12 Pappenheimer Bodies Not Reportable 12/31/18 19:12 Sickle Cells Not Reportable 12/31/18 19:12 Target Cells Not Reportable 12/31/18 19:12 Tear Drop Cells Not Reportable 12/31/18 19:12 Ovalocytes Few 12/31/18 19:12 Helmet Cells Not Reportable 12/31/18 19:12 [place] Bodies Not Reportable 12/31/18 19:12 [place] Rings Not Reportable 12/31/18 19:12 [place] Cells Not Reportable 12/31/18 19:12 Bite Cells Not Reportable 12/31/18 19:12 Crenated Cell Not Reportable 12/31/18 19:12 Elliptocytes Not Reportable 12/31/18 19:12 Acanthocytes (Spur) Not Reportable 12/31/18 19:12 Rouleaux Not Reportable 12/31/18 19:12 Hemoglobin C Crystals Not Reportable 12/31/18 19:12 Schistocytes Not Reportable 12/31/18 19:12 Malaria parasites Not Reportable 12/31/18 19:12 [place] Bodies Not Reportable 12/31/18 19:12 Hem Pathologist Commnt No 12/31/18 19:12 Sodium 139 mmol/L (137-145) 12/31/18 19:12 Potassium 4.7 mmol/L (3.6-5.0) 12/31/18 19:12 Chloride 107.1 mmol/L (98-107) H 12/31/18 19:12 Carbon Dioxide 18 mmol/L (22-30) L 12/31/18 19:12 Anion Gap 19 mmol/L 12/31/18 19:12 BUN 92 mg/dL (9-20) H 12/31/18 19:12 Creatinine 2.7 mg/dL (0.8-1.5) H 12/31/18 19:12 Estimated GFR 24 ml/min 12/31/18 19:12 BUN/Creatinine Ratio 34 % 12/31/18 19:12 Glucose 212 mg/dL (75-100) H 12/31/18 19:12 Lactic Acid 1.40 mmol/L (0.7-2.0) 12/31/18 21:38 Calcium 8.7 mg/dL (8.4-10.2) 12/31/18 19:12 Total Bilirubin 0.60 mg/dL (0.1-1.2) 12/31/18 19:12 AST 16 units/L (5-40) 12/31/18 19:12 ALT 14 units/L (7-56) 12/31/18 19:12 Alkaline Phosphatase 62 units/L (35-129) 12/31/18 19:12 Ammonia 66.0 umol/L (25-60) H 12/31/18 19:12 Total Creatine Kinase 38 units/L (55-170) L 12/31/18 19:12 Troponin T 0.058 ng/mL (0.00-0.029) H 12/31/18 21:38 Total Protein 5.9 g/dL (6.3-8.2) L 12/31/18 19:12 Albumin 2.8 g/dL (3.9-5) L 12/31/18 19:12 Albumin/Globulin Ratio 0.9 % 12/31/18 19:12 Triglycerides 89 mg/dL (2-149) 12/31/18 19:12 Cholesterol 76 mg/dL (50-199) 12/31/18 19:12 LDL Cholesterol Direct 39 mg/dL (50-130) L 12/31/18 19:12 HDL Cholesterol 29 mg/dL (40-59) L 12/31/18 19:12 Cholesterol/HDL Ratio 2.62 % 12/31/18 19:12 TSH 1.030 mlU/mL (0.270-4.200) 12/31/18 19:12 Urine Color [place] (Yellow) 12/31/18 19:00 Urine Turbidity Turbid (Clear) 12/31/18 19:00 Urine pH 8.0 (5.0-7.0) H 12/31/18 19:00 Ur Specific [place] 1.010 (1.003-1.030) 12/31/18 19:00 Urine Protein 100 mg/dl mg/dL (Negative) 12/31/18 19:00 Urine Glucose (UA) Neg mg/dL (Negative) 12/31/18 19: Urine Ketones Neg mg/dL (Negative) 12/31/18 19: Urine Blood Neg (Negative) 12/31/18 19: Urine Nitrite Neg (Negative) 12/31/18 19: Urine Bilirubin Neg (Negative) 12/31/18: Urine Urobilinogen < 2.0 mg/dL (<2.0) 12/31/18 19: Ur Leukocyte Esterase Lg (Negative) 12/31/18 19:00 Urine WBC (Auto) > 182.0 /HPF (0.0-6.0) H 12/31/18 19:00 Urine RBC (Auto) 67.0 /HPF (0.0-6.0) 12/31/18 19:00 Urine Bacteria (Auto) 4+ /HPF (Negative) 12/31/18 19: Urine Mucus 2+ /HPF 12/31/18: Plasma/Serum Alcohol < 0.01 % (0-0.07) 12/31/18 19:12 Assessment and Plan Assessment and plan: Septic shock, likely secondary to UTI -On sepsis protocol -On IV Zosyn and Levophed drip -Blood and urine cultures pending -ID consulted Acute on chronic metabolic encephalopathy -Likely secondary to the sepsis -Head CT scan negative -Monitor clinically Elevated troponin level -Likely demand ischemia due to the sepsis -Continue serial troponin level monitoring BETHEL, probably prerenal azotemia -On IV fluid, will monitor creatinine level -Consider renal ultrasound and nephrology consult if no improvement DM2 with hyperglycemia -On SSI Metabolic acidosis -Likely secondary to the hyperglycemia -Status post IV fluid boluses, we'll monitor bicarbonate level CVA with residual left hemiparesis -Continue supportive care History of obstructive uropathy on chronic Tijerina catheter -Continue Tijerina catheter care Chronic dysphagia -Status post PEG tube placement -Dietitian consulted for tube feeding Chronic debility -Continue supportive care History of COPD -No acute exacerbation -On PRN breathing treatment Severe protein calorie malnutrition -Dietitian consulted I spent 45 minutes providing critical care to this seriously ill patient who requires frequent reassessments of his cardiovascular and neurological status Disposition: Patient's condition is guarded and overall prognosis is poor.
[2019-01-01] MEDS ORDERED: ZOSYN/NS 4.5GM/100ML 4.5 GM/100 ML VIAL IV ONE (00:45)
[2019-01-01] MEDS: ZOSYN/NS 4.5GM/100ML 4.5 GM/100 ML VIAL IV SCH ×2 (00:52→13:07)
[2019-01-01] MEDS ORDERED: ZOSYN/NS 4.5GM/100ML 4.5 GM/100 ML VIAL IV SCH (01:00)
[2019-01-01] MEDS ORDERED: ZOSYN/NS 2.25 GM/50ML 2.25 GM/50 ML BAG IV SCH (01:00)
[2019-01-01] MEDS ORDERED: D50W (25GM) Syringe IV PRN (01:09)
[2019-01-01] MEDS ORDERED: PROVENTIL IH PRN (01:56)
[2019-01-01] MEDS ORDERED: NACL 0.9% 1000 ML 1,000 ML IV SCH (02:00)
[2019-01-01] MEDS ORDERED: LEVOPHED DRIP 4 MG/NS 250 ML 4 MG/250 ML BAG IV ONE (05:40)
[2019-01-01] MEDS ORDERED: HEPARIN ONE ×3 (06:17→21:58)
[2019-01-01] MEDS: HEPARIN SUB-Q SCH ×3 (06:19→21:53)
[2019-01-01] MEDS: HumaLOG SUB-Q SCH ×3 (06:26→20:00)
[2019-01-01] MEDS ORDERED: HumaLOG SUB-Q ONE ×2 (06:27→11:58)
[2019-01-01] MEDS: SODIUM CHLORIDE FLUSH SYRINGE 10 ML IV SCH ×2 (09:58→21:54)
[2019-01-01] MEDS ORDERED: LOVENOX SUB-Q SCH ×2 (10:00)
[2019-01-01] MEDS: PEPCID IV SCH ×2 (10:02→21:54)
[2019-01-01] MEDS ORDERED: PEPCID IV ONE ×2 (10:04→21:58)
[2019-01-01] MEDS ORDERED: NACL 0.9% 1000 ML 1,000 ML IV ONE ×2 (10:59→11:09)
--- NOTE | 2019-01-01 11:01 | Progress Note ---
Assessment and Plan Assessment and plan: Patient is a 58-year-old male with history of CVA, COPD, diabetes, hypertension and indwelling Slade catheter who presented to the emergency department via EMS from his retirement at [facility] with complaint of altered mental status. Per report, patient is usually aphasic but does usually respond with his eyes, however today, he has been more altered than usual. Patient is unresponsive and no history could be obtained from him. In the ED, he was found to have a fever with tachycardia. Subsequently, his blood pressure trended down, for which he was started on IV pressor after central line placement. Septic shock, likely secondary to UTI -On sepsis protocol -On IV Zosyn and Levophed drip -Blood and urine cultures pending -ID consulted Acute on chronic metabolic encephalopathy -Likely secondary to the sepsis -Head CT scan negative -Monitor clinically Elevated troponin level -Likely demand ischemia due to the sepsis -Continue serial troponin level monitoring BETHEL, probably prerenal azotemia -On IV fluid, will monitor creatinine level -Consider renal ultrasound and nephrology consult if no improvement DM2 with hyperglycemia -On SSI Metabolic acidosis -Likely secondary to the hyperglycemia -Status post IV fluid boluses, we'll monitor bicarbonate level CVA with residual left hemiparesis -Continue supportive care History of obstructive uropathy on chronic Slade catheter -Continue Slade catheter care Chronic dysphagia -Status post PEG tube placement -Dietitian consulted for tube feeding Chronic debility -Continue supportive care History of COPD -No acute exacerbation -On PRN breathing treatment Severe protein calorie malnutrition -Dietitian consulted He appears very dry, will give 2 liter nss bolus and then start nss maintence at 150ml/hr; it appears he can handle the volume, 2D ECHO limited conclusions estimated EF 55-60%, normal LV diastolic filling CCT 31 minutes prolonged inpatient services 31 minutes History Interval history: Patient was seen and examined. Follow-up on current diagnosis hypotension and AMS, uti sepsis. Overnight uneventful. Patient is nonverbal. Imaging, nursing note, chart, labs and old chart reviewed. Discussed with nursing at bedside Hospitalist Physical - Physical exam Narrative exam: Gen: chronic disable, criticially ill appearing, awake, will nod at some questions, nonverbal HEENT: NCAT, EOMI, PERRL, OP dry and pasty Neck: supple, no adenopathy, no thyromegaly, no JVD CVS/Heart: RRR, normal S1S2, pulses present bilaterally Chest/Lungs: poor effort Symmetrical chest expansion, good air entry bilaterally GI/Abdomen: soft, NTND, good bowel sounds, no guarding or rebound /Bladder: +chronic slade, mild suprapubic tenderness Extermity/Skin: mm dry, right femoral line MSK: contracted limbs Neuro: doesn't follow commands Psych: calm - Constitutional Vitals: Temp Pulse Resp BP Pulse Ox 98.5 F 66 16 95/59 95 01/01/19 05:00 01/01/19 10:11 01/01/19 10:11 01/01/19 10:11 01/01/19 10:11 General appearance: Present: no acute distress, other (unresponsive) Results - Labs CBC & Chem 7: 12/31/18 19:12 12/31/18 19:12 Labs: Laboratory Last Values WBC 8.3 K/mm3 (4.5-11.0) 12/31/18 19:12 RBC 4.48 M/mm3 (3.65-5.03) 12/31/18 19:12 Hgb 13.8 gm/dl (11.8-15.2) 12/31/18 19:12 Hct 41.9 % (35.5-45.6) 12/31/18 19:12 MCV 94 fl (84-94) 12/31/18 19:12 MCH 31 pg (28-32) 12/31/18 19:12 MCHC 33 % (32-34) 12/31/18 19:12 RDW 15.2 % (13.2-15.2) 12/31/18 19:12 Plt Count 118 K/mm3 (140-440) L 12/31/18 19:12 Add Manual Diff Complete 12/31/18 19:12 Total Counted 100 12/31/18 19:12 Seg Neuts % (Manual) 79.0 % (40.0-70.0) H 12/31/18 19:12 Band Neutrophils % 4.0 % 12/31/18 19:12 Lymphocytes % (Manual) 5.0 % (13.4-35.0) L 12/31/18 19:12 Reactive Lymphs % (Man) 0 % 12/31/18 19:12 Monocytes % (Manual) 12.0 % (0.0-7.3) H 12/31/18 19:12 Eosinophils % (Manual) 0 % (0.0-4.3) 12/31/18 19:12 Basophils % (Manual) 0 % (0.0-1.8) 12/31/18 19:12 Metamyelocytes % 0 % 12/31/18 19:12 Myelocytes % 0 % 12/31/18 19:12 Promyelocytes % 0 % 12/31/18 19:12 Blast Cells % 0 % 12/31/18 19:12 Nucleated RBC % Not Reportable 12/31/18 19:12 Seg Neutrophils # Man 6.6 K/mm3 (1.8-7.7) 12/31/18 19:12 Band Neutrophils # 0.3 K/mm3 12/31/18 19:12 Lymphocytes # (Manual) 0.4 K/mm3 (1.2-5.4) L 12/31/18 19:12 Abs React Lymphs (Man) 0.0 K/mm3 12/31/18 19:12 Monocytes # (Manual) 1.0 K/mm3 (0.0-0.8) H 12/31/18 19:12 Eosinophils # (Manual) 0.0 K/mm3 (0.0-0.4) 12/31/18 19:12 Basophils # (Manual) 0.0 K/mm3 (0.0-0.1) 12/31/18 19:12 Metamyelocytes # 0.0 K/mm3 12/31/18 19:12 Myelocytes # 0.0 K/mm3 12/31/18 19:12 Promyelocytes # 0.0 K/mm3 12/31/18 19:12 Blast Cells # 0.0 K/mm3 12/31/18 19:12 WBC Morphology Not Reportable 12/31/18 19:12 Hypersegmented Neuts Not Reportable 12/31/18 19:12 Hyposegmented Neuts Not Reportable 12/31/18 19:12 Hypogranular Neuts Not Reportable 12/31/18 19:12 Smudge Cells Not Reportable 12/31/18 19:12 Toxic Granulation Not Reportable 12/31/18 19:12 Toxic Vacuolation Not Reportable 12/31/18 19:12 Dohle Bodies Not Reportable 12/31/18 19:12 Pelger-Huet Anomaly Not Reportable 12/31/18 19:12 Meghan Rods Not Reportable 12/31/18 19:12 Platelet Estimate Appears decreased 12/31/18 19:12 Clumped Platelets Not Reportable 12/31/18 19:12 Plt Clumps, EDTA Not Reportable 12/31/18 19:12 Large Platelets Not Reportable 12/31/18 19:12 Giant Platelets Not Reportable 12/31/18 19:12 Platelet Satelliting Not Reportable 12/31/18 19:12 Plt Morphology Comment Not Reportable 12/31/18 19:12 RBC Morphology Not Reportable 12/31/18 19:12 Dimorphic RBCs Not Reportable 12/31/18 19:12 Polychromasia Not Reportable 12/31/18 19:12 Hypochromasia Not Reportable 12/31/18 19:12 Poikilocytosis Not Reportable 12/31/18 19:12 Anisocytosis Not Reportable 12/31/18 19:12 Microcytosis Not Reportable 12/31/18 19:12 Macrocytosis Not Reportable 12/31/18 19:12 Spherocytes Not Reportable 12/31/18 19:12 Pappenheimer Bodies Not Reportable 12/31/18 19:12 Sickle Cells Not Reportable 12/31/18 19:12 Target Cells Not Reportable 12/31/18 19:12 Tear Drop Cells Not Reportable 12/31/18 19:12 Ovalocytes Few 12/31/18 19:12 Helmet Cells Not Reportable 12/31/18 19:12 [place] Bodies Not Reportable 12/31/18 19:12 [place] Rings Not Reportable 12/31/18 19:12 [place] Cells Not Reportable 12/31/18 19:12 Bite Cells Not Reportable 12/31/18 19:12 Crenated Cell Not Reportable 12/31/18 19:12 Elliptocytes Not Reportable 12/31/18 19:12 Acanthocytes (Spur) Not Reportable 12/31/18 19:12 Rouleaux Not Reportable 12/31/18 19:12 Hemoglobin C Crystals Not Reportable 12/31/18 19:12 Schistocytes Not Reportable 12/31/18 19:12 Malaria parasites Not Reportable 12/31/18 19:12 [place] Bodies Not Reportable 12/31/18 19:12 Hem Pathologist Commnt No 12/31/18 19:12 Sodium 139 mmol/L (137-145) 12/31/18 19:12 Potassium 4.7 mmol/L (3.6-5.0) 12/31/18 19:12 Chloride 107.1 mmol/L (98-107) H 12/31/18 19:12 Carbon Dioxide 18 mmol/L (22-30) L 12/31/18 19:12 Anion Gap 19 mmol/L 12/31/18 19:12 BUN 92 mg/dL (9-20) H 12/31/18 19:12 Creatinine 2.7 mg/dL (0.8-1.5) H 12/31/18 19:12 Estimated GFR 24 ml/min 12/31/18 19:12 BUN/Creatinine Ratio 34 % 12/31/18 19:12 Glucose 212 mg/dL (75-100) H 12/31/18 19:12 POC Glucose 203 (70-105) H 01/01/19 06:23 Lactic Acid 1.40 mmol/L (0.7-2.0) 12/31/18 21:38 Calcium 8.7 mg/dL (8.4-10.2) 12/31/18 19:12 Total Bilirubin 0.60 mg/dL (0.1-1.2) 12/31/18 19:12 AST 16 units/L (5-40) 12/31/18 19:12 ALT 14 units/L (7-56) 12/31/18 19:12 Alkaline Phosphatase 62 units/L (35-129) 12/31/18 19:12 Ammonia 66.0 umol/L (25-60) H 12/31/18 19:12 Total Creatine Kinase 38 units/L (55-170) L 12/31/18 19:12 Troponin T 0.041 ng/mL (0.00-0.029) H D 01/01/19 00:22 Total Protein 5.9 g/dL (6.3-8.2) L 12/31/18 19:12 Albumin 2.8 g/dL (3.9-5) L 12/31/18 19:12 Albumin/Globulin Ratio 0.9 % 12/31/18 19:12 Triglycerides 89 mg/dL (2-149) 12/31/18:12 Cholesterol 76 mg/dL (50-199) 12/31/18:12 LDL Cholesterol Direct 39 mg/dL (50-130) L 12/31/18: HDL Cholesterol 29 mg/dL (40-59) L 12/31/18: Cholesterol/HDL Ratio 2.62 % 12/31/18: TSH 1.030 mlU/mL (0.270-4.200) 12/31/18:12 Urine Color [place] (Yellow) 12/31/18 19: Urine Turbidity Turbid (Clear) 12/31/18 19: Urine pH 8.0 (5.0-7.0) H 12/31/18 19: Ur Specific [place] 1.010 (1.003-1.030) 12/31/18 19: Urine Protein 100 mg/dl mg/dL (Negative) 12/31/18 19:00 Urine Glucose (UA) Neg mg/dL (Negative) 12/31/18: Urine Ketones Neg mg/dL (Negative) 12/31/18 19: Urine Blood Neg (Negative) 12/31/18 19:00 Urine Nitrite Neg (Negative) 12/31/18: Urine Bilirubin Neg (Negative) 12/31/18: Urine Urobilinogen < 2.0 mg/dL (<2.0) 12/31/18 19:00 Ur Leukocyte Esterase Lg (Negative) 12/31/18 19:00 Urine WBC (Auto) > 182.0 /HPF (0.0-6.0) H 12/31/18: Urine RBC (Auto) 67.0 /HPF (0.0-6.0) 12/31/18 19: Urine Bacteria (Auto) 4+ /HPF (Negative) 12/31/18 19: Urine Mucus 2+ /HPF 12/31/18:00 Plasma/Serum Alcohol < 0.01 % (0-0.07) 12/31/18:12 Active Medications - Current Medications Current Medications: Generic Name Dose Route Start Last Admin Trade Name Freq PRN Reason Stop Dose Admin Acetaminophen 650 mg 01/01/19 00:35 Tylenol PO Q4H PRN Pain MILD(1-3)/Fever >100.5/WELLER Albuterol 2.5 mg 01/01/19 01:56 Proventil IH Q4HRT PRN Shortness Of Breath Dextrose 50 ml 01/01/19 01:09 D50w (25gm) Syringe IV PRN PRN Hypoglycemia Famotidine 10 mg 01/01/19 10:00 01/01/19 10:02 Pepcid IV 10 mg BID SHIRA Administration Heparin Sodium (Porcine) 5,000 unit 01/01/19 06:00 01/01/19 06:19 Heparin SUB-Q 5,000 unit Q8HR SHIRA Administration Norepinephrine 4 mg in 250 mls @ 7.5 mls/hr 12/31/18 23:45 01/01/19 10:09 Levophed Drip 4 Mg/Ns 250 Ml IV 8 mcg/min TITR SHIRA 30 mls/hr Titration Protocol 2 MCG/MIN Piperacillin Sod/Tazobactam Sod 4.5 gm in 100 mls @ 200 mls/hr 01/01/19 01:00 01/01/19 00:52 Zosyn/Ns 4.5gm/100ml IV 200 mls/hr Q12H SHIRA Administration Protocol Sodium Chloride 1,000 mls @ 125 mls/hr 01/01/19 02:00 Nacl 0.9% 1000 Ml IV DIRECT SHIRA Sodium Chloride 1,000 mls @ 999 mls/hr 01/01/19 10:59 Nacl 0.9% 1000 Ml IV 01/01/19 11:59 BOLUS ONE Insulin Human Lispro 0 unit 01/01/19 06:00 01/01/19 06:26 Humalog SUB-Q 3 unit Q6HR SHIRA Administration Protocol Ondansetron HCl 4 mg 01/01/19 00:35 Zofran IV Q8H PRN Nausea And Vomiting Sodium Chloride 10 ml 01/01/19 10:00 01/01/19 09:58 Sodium Chloride Flush Syringe 10 Ml IV 10 ml BID SHIRA Administration Sodium Chloride 10 ml 01/01/19 00:35 Sodium Chloride Flush Syringe 10 Ml IV PRN PRN LINE FLUSH
[2019-01-01] MEDS ORDERED: NACL 0.9% 1000 ML 2,000 ML ONE (11:17)
--- NOTE | 2019-01-01 11:24 | Consultation ---
History of Present Illness - Reason for Consult Consult date: 01/01/19 Sepsis with Shock Requesting physician: MARÍA AGUILAR - History of Present Illness 58 y/o male admitted with hypotension thought secondary to sepsis from urinary source. Patient started on levophed in the ED and is holding for ICU bed. Past History Past Medical History: COPD, diabetes, hypertension, stroke, other (obstructive uropathy on chronic [place] catheter, chronic dysphagia) Past Surgical History: Other (PEG tube placement, unable to obtain other surgical history due to altered mental status) Social history: other (unable to obtain due to altered mental status) Family history: other (unable to obtain due to altered mental status) Medications and Allergies Allergies Allergy/AdvReac Type Severity Reaction Status Date / Time No Known Allergies Allergy Verified 02/27/15 00:48 Home Medications Medication Instructions Recorded Confirmed Last Taken Type AtorvaSTATin [Lipitor] 40 mg FEEDTUBE QHS 06/21/16 11/11/18 06/20/16 History Ascorbic Acid [Vitamin C] 500 mg FEEDTUBE QDAY 07/14/18 11/11/18 Unknown History Aspirin [Adult Aspirin Regimen] 81 mg FEEDTUBE DAILY 07/14/18 11/11/18 Unknown History Ipratropium/Albuterol Sulfate 1 ampul IH Q6HR 07/14/18 11/11/18 Unknown History [DUONEB *Not for PRN Use*] Multivitamin [Multiple Vitamins] 1 each FEEDTUBE DAILY 07/14/18 11/11/18 Unknown History Protein Supplement [Promod] 30 ml FEEDTUBE Q8H 07/14/18 11/11/18 Unknown History Acetaminophen [Tylenol] 650 mg FEEDTUBE Q4HR PRN 11/11/18 11/11/18 Unknown History Gabapentin [Neurontin] 300 mg FEEDTUBE BID 11/11/18 11/11/18 Unknown History L. Acidophilus/L.bulgaricus 1 each FEEDTUBE QAM 11/11/18 11/11/18 Unknown History [Lactobacillus Tablet] Omeprazole 20 mg FEEDTUBE QAM 11/11/18 11/11/18 Unknown History Potassium Chloride 20 meq FEEDTUBE QDAY 11/11/18 11/11/18 Unknown History guaiFENesin DM [Robitussin Dm] 10 ml FEEDTUBE Q6HR PRN 11/11/18 11/11/18 Unknown History levoFLOXacin [Levaquin TAB] 500 mg FEEDTUBE QDAY 11/11/18 11/11/18 Unknown His tory Linezolid [Zyvox] 600 mg PO BID 5 Days #10 tablet 11/19/18 Unknown Rx Active Meds: Active Medications Acetaminophen (Tylenol) 650 mg PO Q4H PRN PRN Reason: Pain MILD(1-3)/Fever >100.5/WELLER Albuterol (Proventil) 2.5 mg IH Q4HRT PRN PRN Reason: Shortness Of Breath Dextrose (D50w (25gm) Syringe) 50 ml IV PRN PRN PRN Reason: Hypoglycemia Famotidine (Pepcid) 10 mg IV BID SHIRA Last Admin: 01/01/19 10:02 Dose: 10 mg Documented by: Heparin Sodium (Porcine) (Heparin) 5,000 unit SUB-Q Q8HR SHIRA Last Admin: 01/01/19 06:19 Dose: 5,000 unit Documented by: Norepinephrine (Levophed Drip 4 Mg/Ns 250 Ml) 4 mg in 250 mls @ 7.5 mls/hr IV TITR SHIRA; Protocol Last Titration: 01/01/19 11:11 Dose: 8 mcg/min, 30 mls/hr Documented by: Piperacillin Sod/Tazobactam Sod (Zosyn/Ns 4.5gm/100ml) 4.5 gm in 100 mls @ 200 mls/hr IV Q12H SHIRA; Protocol Last Admin: 01/01/19 00:52 Dose: 200 mls/hr Documented by: Sodium Chloride (Nacl 0.9% 1000 Ml) 1,000 mls @ 999 mls/hr IV BOLUS ONE Stop: 01/01/19 11:59 Last Admin: 01/01/19 11:12 Dose: 999 mls/hr Documented by: Sodium Chloride (Nacl 0.9% 1000 Ml) 1,000 mls @ 999 mls/hr IV BOLUS ONE Stop: 01/01/19 12:09 Last Admin: 01/01/19 11:13 Dose: 999 mls/hr Documented by: Sodium Chloride (Nacl 0.9% 1000 Ml) 1,000 mls @ 150 mls/hr IV DIRECT SHIRA Levofloxacin/Dextrose (Levaquin 500mg/100ml) 500 mg in 100 mls @ 100 mls/hr IV ONCE ONE; Protocol Stop: 01/01/19 12:59 Insulin Human Lispro (Humalog) 0 unit SUB-Q Q6HR [facility]; Protocol Last Admin: 01/01/19 06:26 Dose: 3 unit Documented by: Ondansetron HCl (Zofran) 4 mg IV Q8H PRN PRN Reason: Nausea And Vomiting Sodium Chloride (Sodium Chloride Flush Syringe 10 Ml) 10 ml IV BID SHIRA Last Admin: 01/01/19 09:58 Dose: 10 ml Documented by: Sodium Chloride (Sodium Chloride Flush Syringe 10 Ml) 10 ml IV PRN PRN PRN Reason: LINE FLUSH Exam - Constitutional Vitals: Temp Pulse Resp BP Pulse Ox 98.5 F 66 16 95/59 95 01/01/19 05:00 01/01/19 10:11 01/01/19 10:11 01/01/19 10:11 01/01/19 10:11 Results - Labs CBC & Chem 7: 01/02/19 03:28 01/02/19 03:28 Labs: Abnormal lab results 12/31/18 12/31/18 12/31/18 Range/Units 19:00 19:12 19:12 Plt Count 118 L (140-440) K/mm3 Seg Neuts % (Manual) 79.0 H (40.0-70.0) % Lymphocytes % (Manual) 5.0 L (13.4-35.0) % Monocytes % (Manual) 12.0 H (0.0-7.3) % Lymphocytes # (Manual) 0.4 L (1.2-5.4) K/mm3 Monocytes # (Manual) 1.0 H (0.0-0.8) K/mm3 Chloride 107.1 H (98-107) mmol/L Carbon Dioxide 18 L (22-30) mmol/L BUN 92 H (9-20) mg/dL Creatinine 2.7 H (0.8-1.5) mg/dL Glucose 212 H (75-100) mg/dL POC Glucose (70-105) Ammonia (25-60) umol/L Total Creatine Kinase (55-170) units/L Troponin T 0.055 H (0.00-0.029) ng/mL Total Protein 5.9 L (6.3-8.2) g/dL Albumin 2.8 L (3.9-5) g/dL LDL Cholesterol Direct 39 L (50-130) mg/dL HDL Cholesterol 29 L (40-59) mg/dL Urine pH 8.0 H (5.0-7.0) Urine WBC (Auto) > 182.0 H (0.0-6.0) /HPF 12/31/18 12/31/18 12/31/18 Range/Units 19:12 19:12 21:38 Plt Count (140-440) K/mm3 Seg Neuts % (Manual) (40.0-70.0) % Lymphocytes % (Manual) (13.4-35.0) % Monocytes % (Manual) (0.0-7.3) % Lymphocytes # (Manual) (1.2-5.4) K/mm3 Monocytes # (Manual) (0.0-0.8) K/mm3 Chloride (98-107) mmol/L Carbon Dioxide (22-30) mmol/L BUN (9-20) mg/dL Creatinine (0.8-1.5) mg/dL Glucose (75-100) mg/dL POC Glucose (70-105) Ammonia 66.0 H (25-60) umol/L Total Creatine Kinase 38 L (55-170) units/L Troponin T 0.058 H (0.00-0.029) ng/mL Total Protein (6.3-8.2) g/dL Albumin (3.9-5) g/dL LDL Cholesterol Direct (50-130) mg/dL HDL Cholesterol (40-59) mg/dL Urine pH (5.0-7.0) Urine WBC (Auto) (0.0-6.0) /HPF 01/01/19 01/01/19 Range/Units 00:22 06:23 Plt Count (140-440) K/mm3 Seg Neuts % (Manual) (40.0-70.0) % Lymphocytes % (Manual) (13.4-35.0) % Monocytes % (Manual) (0.0-7.3) % Lymphocytes # (Manual) (1.2-5.4) K/mm3 Monocytes # (Manual) (0.0-0.8) K/mm3 Chloride (98-107) mmol/L Carbon Dioxide (22-30) mmol/L BUN (9-20) mg/dL Creatinine (0.8-1.5) mg/dL Glucose (75-100) mg/dL POC Glucose 203 H (70-105) Ammonia (25-60) umol/L Total Creatine Kinase (55-170) units/L Troponin T 0.041 H D (0.00-0.029) ng/mL Total Protein (6.3-8.2) g/dL Albumin (3.9-5) g/dL LDL Cholesterol Direct (50-130) mg/dL HDL Cholesterol (40-59) mg/dL Urine pH (5.0-7.0) Urine WBC (Auto) (0.0-6.0) /HPF Assessment and Plan 58 y/o male with sepsis, thought secondary to recent UTI 1. Needs more volume 2. Wean Vasopressor therapy for MAPs >65 3. Abx CCT 31 minutes.
[2019-01-01] MEDS ORDERED: LEVAQUIN 500MG/100ML 500 MG/100 ML BAG IV ONE ×2 (11:37→12:00)
[2019-01-01] MEDS ORDERED: ROCEPHIN/NS 1 GM/50 ML 1 GM/50 ML BAG IV SCH (12:00)
[2019-01-01] MEDS: NACL 0.9% 1000 ML 1,000 ML IV SCH (12:13)
[2019-01-01] MEDS ORDERED: NACL 0.9% 1000 ML 1,000 ML ONE (13:14)
[2019-01-01] MEDS ORDERED: SIMPLE SYRUP FEEDTUBE PRN ×2 (14:22)
[2019-01-01] MEDS ORDERED: PANCREAZE DR 10,500 UNIT FEEDTUBE PRN (14:22)
[2019-01-01] MEDS ORDERED: SODIUM BICARBONATE FEEDTUBE PRN (14:22)
[2019-01-02] MEDS: HumaLOG SUB-Q SCH ×4 (00:32→21:36)
[2019-01-02] MEDS: ZOSYN/NS 4.5GM/100ML 4.5 GM/100 ML VIAL IV SCH (00:32)
[2019-01-02 04:00] LABS: Basophils % (Auto) 0.2 % (0.0-1.8); Eosinophils % (Auto) 0.2 % (0.0-4.3); Hematocrit 32.6 % (35.5-45.6); Hemoglobin 10.8 gm/dl (11.8-15.2); Lymphocytes # (Auto) 0.5 K/mm3 (1.2-5.4); Lymphocytes % (Auto) 16.9 % (13.4-35.0); Mean Corpuscular HGB Conc 33 % (32-34); Mean Corpuscular Volume 93 fl (84-94); Monocytes # (Auto) 0.3 K/mm3 (0.0-0.8); Monocytes % (Auto) 11.4 % (0.0-7.3); Red Cell Distribution Width 14.9 % (13.2-15.2)
[2019-01-02 04:46] LABS: BUN/Creatinine Ratio 52; Blood Urea Nitrogen 31 mg/dL (9-20); Calcium 8.2 mg/dL (8.4-10.2); Hemolysis Index 1
[2019-01-02 05:02] LABS: Platelet Count 62 K/mm3 (140-440)
[2019-01-02] MEDS: HEPARIN SUB-Q SCH ×3 (06:36→21:18)
[2019-01-02] MEDS ORDERED: VANCOMYCIN/NS 1 GM/250 ML 1 GM/250 ML BAG IV ONE (10:00)
[2019-01-02] MEDS: PEPCID PO SCH ×2 (10:00→21:19)
--- NOTE | 2019-01-02 10:28 | Progress Note ---
Assessment and Plan 58 y/o male with sepsis, thought secondary to recent UTI 1. Will sign off, call if questions. Subjective Date of service: 01/02/19 Interval history: Patient now of floor, off pressors and hemodynamically stable Objective - Constitutional Vitals: Vital Signs - 12hr 01/01/19 01/01/19 01/01/19 22:30 22:46 23:00 Pulse Rate 70 89 70 Respiratory 26 H 11 L 19 Rate Blood Pressure 110/67 106/63 106/63 01/01/19 01/01/19 01/01/19 23:16 23:30 23:46 Pulse Rate 75 67 65 Respiratory 24 21 25 H Rate Blood Pressure 100/61 100/61 106/63 01/01/19 01/02/19 01/02/19 23:56 00:00 00:16 Pulse Rate 76 68 65 Respiratory 18 17 14 Rate Blood Pressure 106/63 106/63 103/59 01/02/19 01/02/19 01/02/19 00:30 00:46 01:00 Pulse Rate 75 91 H 70 Respiratory 12 17 23 Rate Blood Pressure 108/65 103/63 108/65 01/02/19 01/02/19 01/02/19 01:16 01:30 01:46 Pulse Rate 71 75 95 H Respiratory 20 24 17 Rate Blood Pressure 104/59 104/59 96/60 01/02/19 01/02/19 01/02/19 02:00 02:16 02:30 Pulse Rate 62 66 63 Respiratory 14 19 19 Rate Blood Pressure 96/60 103/60 103/60 01/02/19 01/02/19 01/02/19 02:46 03:00 03:16 Pulse Rate 67 63 66 Respiratory 20 17 12 Rate Blood Pressure 105/60 97/58 105/62 01/02/19 01/02/19 01/02/19 03:30 03:46 04:00 Pulse Rate 90 72 110 H Respiratory 13 19 21 Rate Blood Pressure 102/63 112/61 109/64 01/02/19 01/02/19 04:16 04:30 Pulse Rate 98 H 69 Respiratory 22 17 Rate Blood Pressure 108/64 108/64 - Labs CBC & Chem 7: 01/02/19 03:28 01/02/19 03:28 Labs: Abnormal lab results 01/01/19 01/02/19 01/02/19 Range/Units 11:54 00:21 03:28 WBC 2.9 L (4.5-11.0) K/mm3 RBC 3.50 L (3.65-5.03) M/mm3 Hgb 10.8 L D (11.8-15.2) gm/dl Hct 32.6 L D (35.5-45.6) % Plt Count 62 L (140-440) K/mm3 [place] % (Auto) 11.4 H (0.0-7.3) % Lymph # 0.5 L (1.2-5.4) K/mm3 Seg Neutrophils % 71.3 H (40.0-70.0) % Sodium (137-145) mmol/L Potassium (3.6-5.0) mmol/L Chloride (98-107) mmol/L BUN (9-20) mg/dL Creatinine (0.8-1.5) mg/dL Glucose (75-100) mg/dL POC Glucose 162 H 63 L (70-105) Calcium (8.4-10.2) mg/dL 01/02/19 01/02/19 01/02/19 Range/Units 03:28 03:45 06:08 WBC (4.5-11.0) K/mm3 RBC (3.65-5.03) M/mm3 Hgb (11.8-15.2) gm/dl Hct (35.5-45.6) % Plt Count (140-440) K/mm3 [place] % (Auto) (0.0-7.3) % Lymph # (1.2-5.4) K/mm3 Seg Neutrophils % (40.0-70.0) % Sodium 152 H D (137-145) mmol/L Potassium 3.2 L D (3.6-5.0) mmol/L Chloride 120.5 H (98-107) mmol/L BUN 31 H (9-20) mg/dL Creatinine 0.6 L D (0.8-1.5) mg/dL Glucose 68 L (75-100) mg/dL POC Glucose 65 L 53 L (70-105) Calcium 8.2 L (8.4-10.2) mg/dL Medications & Allergies - Medications Allergies/Adverse Reactions: Allergies No Known Allergies Allergy (Verified 06/09/15 00:48) Home Medications: Home Medications Medication Instructions Recorded Confirmed Last Taken Type AtorvaSTATin [Lipitor] 40 mg FEEDTUBE QHS 06/21/16 11/11/18 06/20/16 History Ascorbic Acid [Vitamin C] 500 mg FEEDTUBE QDAY 07/14/18 11/11/18 Unknown History Aspirin [Adult Aspirin Regimen] 81 mg FEEDTUBE DAILY 07/14/18 11/11/18 Unknown History Ipratropium/Albuterol Sulfate 1 ampul IH Q6HR 07/14/18 11/11/18 Unknown History [DUONEB *Not for PRN Use*] Multivitamin [Multiple Vitamins] 1 each FEEDTUBE DAILY 07/14/18 11/11/18 Unknown History Protein Supplement [Promod] 30 ml FEEDTUBE Q8H 07/14/18 11/11/18 Unknown History Acetaminophen [Tylenol] 650 mg FEEDTUBE Q4HR PRN 11/11/18 11/11/18 Unknown History Gabapentin [Neurontin] 300 mg FEEDTUBE BID 11/11/18 11/11/18 Unknown History L. Acidophilus/L.bulgaricus 1 each FEEDTUBE QAM 11/11/18 11/11/18 Unknown History [Lactobacillus Tablet] Omeprazole 20 mg FEEDTUBE QAM 11/11/18 11/11/18 Unknown History Potassium Chloride 20 meq FEEDTUBE QDAY 11/11/18 11/11/18 Unknown History guaiFENesin DM [Robitussin Dm] 10 ml FEEDTUBE Q6HR PRN 11/11/18 11/11/18 Unknown History levoFLOXacin [Levaquin TAB] 500 mg FEEDTUBE QDAY 11/11/18 11/11/18 Unknown History Linezolid [Zyvox] 600 mg PO BID 5 Days #10 tablet 11/19/18 Unknown Rx Active Medications: Generic Name Dose Route Start Last Admin Trade Name Freq PRN Reason Stop Dose Admin Acetaminophen 650 mg 01/01/19 00:35 Tylenol PO Q4H PRN Pain MILD(1-3)/Fever >100.5/WELLER Albuterol 2.5 mg 01/01/19 01:56 Proventil IH Q4HRT PRN Shortness Of Breath Lipase/Protease/Amylase 1 each 01/01/19 14:22 Pancredonovan Lilly 10,500 Unit FEEDTUBE PRN PRN For Clogged Feeding Tube Dextrose 50 ml 01/01/19 01:09 D50w (25gm) Syringe IV PRN PRN Hypoglycemia Famotidine 20 mg 01/02/19 10:00 Pepcid PO BID [facility] Heparin Sodium (Porcine) 5,000 unit 01/01/19 06:00 01/02/19 06:36 Heparin SUB-Q 5,000 unit Q8HR SHIRA Administration Sodium Chloride 1,000 mls @ 150 mls/hr 01/01/19 12:00 01/01/19 12:13 Nacl 0.9% 1000 Ml IV 150 mls/hr DIRECT SHIRA Administration Levofloxacin/Dextrose 250 mg in 50 mls @ 50 mls/hr 01/02/19 12:00 Levaquin 250mg/50ml IV Q24H [facility] Vancomycin HCl 1 gm in 250 mls @ 167.007 mls/hr 01/02/19 10:00 Vancomycin/Ns 1 Gm/250 Ml IV 01/02/19 11:29 ONCE ONE Piperacillin Sod/Tazobactam Sod 4.5 gm in 100 mls @ 200 mls/hr 01/02/19 14:00 Zosyn/Ns 4.5gm/100ml IV Q8HR [facility] Protocol Insulin Human Lispro 0 unit 01/01/19 06:00 01/02/19 06:36 Humalog SUB-Q Not Given Q6HR [facility] Protocol Ondansetron HCl 4 mg 01/01/19 00:35 Zofran IV Q8H PRN Nausea And Vomiting Simple Syrup 15 ml 01/01/19 14:22 Simple Syrup FEEDTUBE PRN PRN Hypoglycemia Simple Syrup 30 ml 01/01/19 14:22 Simple Syrup FEEDTUBE PRN PRN Hypoglycemia Sodium Bicarbonate 325 mg 01/01/19 14:22 Sodium Bicarbonate FEEDTUBE PRN PRN For Clogged Feeding Tube Sodium Chloride 10 ml 01/01/19 10:00 01/01/19 21:54 Sodium Chloride Flush Syringe 10 Ml IV 10 ml BID SHIRA Administration Sodium Chloride 10 ml 01/01/19 00:35 Sodium Chloride Flush Syringe 10 Ml IV PRN PRN LINE FLUSH
[2019-01-02] MEDS: NACL 0.9% 1000 ML 1,000 ML IV SCH (11:48)
[2019-01-02] MEDS ORDERED: LEVAQUIN 250MG/50ML 250 MG/50 ML BAG IV SCH (12:00)
--- NOTE | 2019-01-02 12:43 | Progress Note ---
Assessment and Plan Assessment and plan: Patient is a 58-year-old male from [facility] with a history of CVA with significant residuals including aphasia/dysplagia/peg dependent/quadreplegia, COPD, diabetes, hypertension and indwelling Slade catheter who presented to the emergency department via EMS with altered mental status. Per report, patient is usually aphasic but does usually respond with his eyes, however today, he has been more altered than usual. Patient is unresponsive and no history could be obtained from him. In the ED, he was found to have a fever with tachycardia. Subsequently, his blood pressure trended down, for which he was started on IV pressor after central line placement. Septic shock, likely secondary to UTI -On sepsis protocol-On IV Zosyn and Levophed drip-Blood and urine cultures pending-ID consulted Acute on chronic metabolic encephalopathy-Likely secondary to the sepsis-Head CT scan negative-Monitor clinically Elevated troponin level-Likely demand ischemia due to the sepsis-Continue serial troponin level monitoring BETHEL, probably vasomotor nephropathy-On IV fluid, will monitor creatinine level- Consider renal ultrasound and nephrology consult if no improvement DM2 with hyperglycemia-On SSI Metabolic acidosis-Likely secondary to the hyperglycemia-Status post IV fluid boluses, we'll monitor bicarbonate level CVA with residual left hemiparesis-Continue supportive care History of obstructive uropathy on chronic Slade catheter-Continue Slade catheter care Chronic dysphagia-Status post PEG tube placement-Dietitian consulted for tube feeding Chronic debility/functional quadriplegia: -Continue supportive care History of COPD-No acute exacerbation-On PRN breathing treatment Severe protein calorie malnutrition, bmi 15.5-Dietitian consulted Hypokalemia: replace and recheck DVT ppx full code disposition: continue inpatient care, await cultures then back to [facility] History Interval history: Patient was seen and examined. Follow-up on current diagnosis hypotension and AMS, uti sepsis. Overnight uneventful. Patient is nonverbal. Imaging, nursing note, chart, labs and old chart reviewed. Discussed with nursing at bedside Hospitalist Physical - Physical exam Narrative exam: Gen: chronic disable, criticially ill appearing, awake, will nod at some questions, nonverbal HEENT: NCAT, EOMI, PERRL, OP dry and pasty Neck: supple, no adenopathy, no thyromegaly, no JVD CVS/Heart: RRR, normal S1S2, pulses present bilaterally Chest/Lungs: poor effort Symmetrical chest expansion, good air entry bilaterally GI/Abdomen: soft, NTND, good bowel sounds, no guarding or rebound /Bladder: +chronic slade, mild suprapubic tenderness Extermity/Skin: mm dry, right femoral line MSK: contracted limbs Neuro: doesn't follow commands Psych: calm - Constitutional Vitals: Temp Pulse Resp BP Pulse Ox 98.5 F 69 17 108/64 97 01/01/19 05:00 01/02/19 04:30 01/02/19 04:30 01/02/19 04:30 01/02/19 10:00 General appearance: Present: no acute distress, other (unresponsive) Results - Labs CBC & Chem 7: 01/02/19 03:28 01/02/19 03:28 Labs: Laboratory Last Values WBC 2.9 K/mm3 (4.5-11.0) L 01/02/19 03:28 RBC 3.50 M/mm3 (3.65-5.03) L 01/02/19 03:28 Hgb 10.8 gm/dl (11.8-15.2) L D 01/02/19 03:28 Hct 32.6 % (35.5-45.6) L D 01/02/19 03:28 MCV 93 fl (84-94) 01/02/19 03:28 MCH 31 pg (28-32) 01/02/19 03:28 MCHC 33 % (32-34) 01/02/19 03:28 RDW 14.9 % (13.2-15.2) 01/02/19 03:28 Plt Count 62 K/mm3 (140-440) L 01/02/19 03:28 Lymph % (Auto) 16.9 % (13.4-35.0) 01/02/19 03:28 [place] % (Auto) 11.4 % (0.0-7.3) H 01/02/19 03:28 Eos % (Auto) 0.2 % (0.0-4.3) 01/02/19 03:28 Baso % (Auto) 0.2 % (0.0-1.8) 01/02/19 03:28 Lymph # 0.5 K/mm3 (1.2-5.4) L 01/02/19 03:28 [place] # 0.3 K/mm3 (0.0-0.8) 01/02/19 03:28 Eos # 0.0 K/mm3 (0.0-0.4) 01/02/19 03:28 Baso # 0.0 K/mm3 (0.0-0.1) 01/02/19 03:28 Add Manual Diff Complete 12/31/18 19:12 Total Counted 100 12/31/18 19:12 Seg Neutrophils % 71.3 % (40.0-70.0) H 01/02/19 03:28 Seg Neuts % (Manual) 79.0 % (40.0-70.0) H 12/31/18 19:12 Band Neutrophils % 4.0 % 12/31/18 19:12 Lymphocytes % (Manual) 5.0 % (13.4-35.0) L 12/31/18 19:12 Reactive Lymphs % (Man) 0 % 12/31/18 19:12 Monocytes % (Manual) 12.0 % (0.0-7.3) H 12/31/18 19:12 Eosinophils % (Manual) 0 % (0.0-4.3) 12/31/18 19:12 Basophils % (Manual) 0 % (0.0-1.8) 12/31/18 19:12 Metamyelocytes % 0 % 12/31/18 19:12 Myelocytes % 0 % 12/31/18 19:12 Promyelocytes % 0 % 12/31/18 19:12 Blast Cells % 0 % 12/31/18 19:12 Nucleated RBC % Not Reportable 12/31/18 19:12 Seg Neutrophils # 2.0 K/mm3 (1.8-7.7) 01/02/19 03:28 Seg Neutrophils # Man 6.6 K/mm3 (1.8-7.7) 12/31/18 19:12 Band Neutrophils # 0.3 K/mm3 12/31/18 19:12 Lymphocytes # (Manual) 0.4 K/mm3 (1.2-5.4) L 12/31/18 19:12 Abs React Lymphs (Man) 0.0 K/mm3 12/31/18 19:12 Monocytes # (Manual) 1.0 K/mm3 (0.0-0.8) H 12/31/18 19:12 Eosinophils # (Manual) 0.0 K/mm3 (0.0-0.4) 12/31/18 19:12 Basophils # (Manual) 0.0 K/mm3 (0.0-0.1) 12/31/18 19:12 Metamyelocytes # 0.0 K/mm3 12/31/18 19:12 Myelocytes # 0.0 K/mm3 12/31/18 19:12 Promyelocytes # 0.0 K/mm3 12/31/18 19:12 Blast Cells # 0.0 K/mm3 12/31/18 19:12 WBC Morphology Not Reportable 12/31/18 19:12 Hypersegmented Neuts Not Reportable 12/31/18 19:12 Hyposegmented Neuts Not Reportable 12/31/18 19:12 Hypogranular Neuts Not Reportable 12/31/18 19:12 Smudge Cells Not Reportable 12/31/18 19:12 Toxic Granulation Not Reportable 12/31/18 19:12 Toxic Vacuolation Not Reportable 12/31/18 19:12 Dohle Bodies Not Reportable 12/31/18 19:12 Pelger-Huet Anomaly Not Reportable 12/31/18 19:12 Meghan Rods Not Reportable 12/31/18 19:12 Platelet Estimate Appears decreased 12/31/18 19:12 Clumped Platelets Not Reportable 12/31/18 19:12 Plt Clumps, EDTA Not Reportable 12/31/18 19:12 Large Platelets Not Reportable 12/31/18 19:12 Giant Platelets Not Reportable 12/31/18 19:12 Platelet Satelliting Not Reportable 12/31/18 19:12 Plt Morphology Comment Not Reportable 12/31/18 19:12 RBC Morphology Not Reportable 12/31/18 19:12 Dimorphic RBCs Not Reportable 12/31/18 19:12 Polychromasia Not Reportable 12/31/18 19:12 Hypochromasia Not Reportable 12/31/18 19:12 Poikilocytosis Not Reportable 12/31/18 19:12 Anisocytosis Not Reportable 12/31/18 19:12 Microcytosis Not Reportable 12/31/18 19:12 Macrocytosis Not Reportable 12/31/18 19:12 Spherocytes Not Reportable 12/31/18 19:12 Pappenheimer Bodies Not Reportable 12/31/18 19:12 Sickle Cells Not Reportable 12/31/18 19:12 Target Cells Not Reportable 12/31/18 19:12 Tear Drop Cells Not Reportable 12/31/18 19:12 Ovalocytes Few 12/31/18 19:12 Helmet Cells Not Reportable 12/31/18 19:12 [place] Bodies Not Reportable 12/31/18 19:12 [place] Rings Not Reportable 12/31/18 19:12 [place] Cells Not Reportable 12/31/18 19:12 Bite Cells Not Reportable 12/31/18 19:12 Crenated Cell Not Reportable 12/31/18 19:12 Elliptocytes Not Reportable 12/31/18 19:12 Acanthocytes (Spur) Not Reportable 12/31/18 19:12 Rouleaux Not Reportable 12/31/18 19:12 Hemoglobin C Crystals Not Reportable 12/31/18 19:12 Schistocytes Not Reportable 12/31/18 19:12 Malaria parasites Not Reportable 12/31/18 19:12 [place] Bodies Not Reportable 12/31/18 19:12 Hem Pathologist Commnt No 12/31/18 19:12 Sodium 152 mmol/L (137-145) H D 01/02/19 03:28 Potassium 3.2 mmol/L (3.6-5.0) L D 01/02/19 03:28 Chloride 120.5 mmol/L (98-107) H 01/02/19 03:28 Carbon Dioxide 23 mmol/L (22-30) 01/02/19 03:28 Anion Gap 12 mmol/L 01/02/19 03:28 BUN 31 mg/dL (9-20) H 01/02/19 03:28 Creatinine 0.6 mg/dL (0.8-1.5) L D 01/02/19 03:28 Estimated GFR > 60 ml/min 01/02/19 03:28 BUN/Creatinine Ratio 52 % 01/02/19 03:28 Glucose 68 mg/dL (75-100) L 01/02/19 03:28 POC Glucose 118 (70-105) H 01/02/19 12:28 Lactic Acid 1.40 mmol/L (0.7-2.0) 12/31/18 21:38 Calcium 8.2 mg/dL (8.4-10.2) L 01/02/19 03:28 Total Bilirubin 0.60 mg/dL (0.1-1.2) 12/31/18 19:12 AST 16 units/L (5-40) 12/31/18 19:12 ALT 14 units/L (7-56) 12/31/18 19:12 Alkaline Phosphatase 62 units/L (35-129) 12/31/18 19:12 Ammonia 66.0 umol/L (25-60) H 12/31/18 19:12 Total Creatine Kinase 38 units/L (55-170) L 12/31/18 19:12 Troponin T 0.041 ng/mL (0.00-0.029) H D 01/01/19 00:22 Total Protein 5.9 g/dL (6.3-8.2) L 12/31/18 19:12 Albumin 2.8 g/dL (3.9-5) L 12/31/18 19:12 Albumin/Globulin Ratio 0.9 % 12/31/18 19:12 Triglycerides 89 mg/dL (2-149) 12/31/18 19:12 Cholesterol 76 mg/dL (50-199) 12/31/18 19:12 LDL Cholesterol Direct 39 mg/dL (50-130) L 12/31/18 19:12 HDL Cholesterol 29 mg/dL (40-59) L 12/31/18 19:12 Cholesterol/HDL Ratio 2.62 % 12/31/18 19:12 TSH 1.030 mlU/mL (0.270-4.200) 12/31/18 19:12 Urine Color [place] (Yellow) 12/31/18 19:00 Urine Turbidity Turbid (Clear) 12/31/18 19:00 Urine pH 8.0 (5.0-7.0) H 12/31/18 19:00 Ur Specific [place] 1.010 (1.003-1.030) 12/31/18 19:00 Urine Protein 100 mg/dl mg/dL (Negative) 12/31/18 19:00 Urine Glucose (UA) Neg mg/dL (Negative) 12/31/18 19:00 Urine Ketones Neg mg/dL (Negative) 12/31/18 19:00 Urine Blood Neg (Negative) 12/31/18 19:00 Urine Nitrite Neg (Negative) 12/31/18 19:00 Urine Bilirubin Neg (Negative) 12/31/18 19:00 Urine Urobilinogen < 2.0 mg/dL (<2.0) 12/31/18 19:00 Ur Leukocyte Esterase Lg (Negative) 12/31/18 19:00 Urine WBC (Auto) > 182.0 /HPF (0.0-6.0) H 12/31/18 19:00 Urine RBC (Auto) 67.0 /HPF (0.0-6.0) 12/31/18 19:00 Urine Bacteria (Auto) 4+ /HPF (Negative) 12/31/18 19:00 Urine Mucus 2+ /HPF 12/31/18 19:00 Plasma/Serum Alcohol < 0.01 % (0-0.07) 12/31/18 19:12 Active Medications - Current Medications Current Medications: Generic Name Dose Route Start Last Admin Trade Name Freq PRN Reason Stop Dose Admin Acetaminophen 650 mg 01/01/19 00:35 Tylenol PO Q4H PRN Pain MILD(1-3)/Fever >100.5/WELLER Albuterol 2.5 mg 01/01/19 01:56 Proventil IH Q4HRT PRN Shortness Of Breath Lipase/Protease/Amylase 1 each 01/01/19 14:[address] 10,500 Unit FEEDTUBE PRN PRN For Clogged Feeding Tube Dextrose 50 ml 01/01/19 01:09 D50w (25gm) Syringe IV PRN PRN Hypoglycemia Famotidine 20 mg 01/02/19 10:00 01/02/19 10:00 Pepcid PO 20 mg BID SHIRA Administration Heparin Sodium (Porcine) 5,000 unit 01/01/19 06:00 01/02/19 06:36 Heparin SUB-Q 5,000 unit Q8HR SHIRA Administration Sodium Chloride 1,000 mls @ 150 mls/hr 01/01/19 12:00 01/02/19 11:48 Nacl 0.9% 1000 Ml IV 150 mls/hr DIRECT SHIRA Administration Levofloxacin/Dextrose 250 mg in 50 mls @ 50 mls/hr 01/02/19 12:00 01/02/19 11:49 Levaquin 250mg/50ml IV 50 mls/hr Q24H SHIRA Administration Piperacillin Sod/Tazobactam Sod 4.5 gm in 100 mls @ 200 mls/hr 01/02/19 14:00 Zosyn/Ns 4.5gm/100ml IV Q8HR [facility] Protocol Insulin Human Lispro 0 unit 01/01/19 06:00 01/02/19 06:36 Humalog SUB-Q Not Given Q6HR [facility] Protocol Ondansetron HCl 4 mg 01/01/19 00:35 Zofran IV Q8H PRN Nausea And Vomiting Potassium Chloride 40 meq 01/02/19 12:37 Potassium Chloride FEEDTUBE 01/02/19 12:38 ONCE ONE Simple Syrup 15 ml 01/01/19 14:22 Simple Syrup FEEDTUBE PRN PRN Hypoglycemia Simple Syrup 30 ml 01/01/19 14:22 Simple Syrup FEEDTUBE PRN PRN Hypoglycemia Sodium Bicarbonate 325 mg 01/01/19 14:22 Sodium Bicarbonate FEEDTUBE PRN PRN For Clogged Feeding Tube Sodium Chloride 10 ml 01/01/19 10:00 01/01/19 21:54 Sodium Chloride Flush Syringe 10 Ml IV 10 ml BID SHIRA Administration Sodium Chloride 10 ml 01/01/19 00:35 Sodium Chloride Flush Syringe 10 Ml IV PRN PRN LINE FLUSH Nutrition/Malnutrition Assess - Dietary Evaluation Nutrition/Malnutrition Findings: Nutrition Notes Start: 01/01/19 14:04 Freq: Status: Active Protocol: Document 01/01/19 14:04 RM (Rec: 01/01/19 14:22 [email or web address]) Nutrition Notes Need for Assessment generated from: MD Order Initial or Follow up Assessment Current Diagnosis Acute Kidney Injury,COPD, Diabetes,Hypertension Other Pertinent Diagnosis L elbow wound, Hx CVA,Aphasia, Septic, Metabolic encephalopathy, PEG Current Diet NPO Labs/Tests Reviewed Pertinent Medications Reviewed Height 6 ft Weight 51.71 kg [place] Body Weight (kg) 80.90 BMI 15.4 Subjective/Other Information Consulted for malnutrition. Pt from NH and in ED. Per Hx and physical MD wants TF recommendation. Burn Absent Trauma Absent #1 Nutrition Diagnosis Inadequate oral intake Etiology Hx CVA As Evidenced by Signs and Symptoms pt requiring enteral nutrition to meet nutritional needs Is patient on ventilator? No Is Patient Ambulatory and/or Out of Bed No REE-([facility]. Jeor-confined to bed) 1643.256 Kcal/Kg value to use for calculation 38 Approximate Energy Requirements Using 1965 kcal/Kg Calculation Used for Recommendations Kcal/kg Additional Notes Protein Needs: 62-78g (1.2-1. 5g/kg) Fluid Needs: 1 ml/kcal Nutrition Intervention Nutrition Support: Glucerna 1.2 at 70 ml/hr. Water flush of 100 mls q 4 hrs . Kcal 2,016 Protein (gm) 101 Fluid (mL) 1,352 Goal #1 TF tolerance Goal #2 Meet at least 75% of calorie and protein needs via TF Anticipated Discharge Needs: TF Follow-Up By: 01/03/19 Additional Comments Follow for new TF, malnutrition assessment
[2019-01-02] MEDS ORDERED: POTASSIUM CHLORIDE FEEDTUBE ONE (13:00)
[2019-01-02] MEDS ORDERED: ZOSYN/NS 4.5GM/100ML 4.5 GM/100 ML VIAL IV SCH (14:00)
--- NOTE | 2019-01-02 16:10 | Consultation ---
History of Present Illness - Reason for Consult Consult date: 01/02/19 Septic shock Requesting physician: MARÍA AGUILAR - History of Present Illness The patient is a 58-year-old male with hypertension, diabetes, COPD, CVA with aphasia and right-sided hemiparesis, contractures, dysphagia status post PEG tube placement, indwelling Slade catheter, recent hospitalization in October 2018 with respiratory culture positive for VISA (vancomycin intermediate Staphylococcus aureus) was admitted to the hospital on 12/31/2018 as a [facility] with altered mental status and concerns for sepsis with septic shock. He was admitted to the hospital, required a brief ICU stay with IV pressors and aggressive fluid resuscitation with antibiotics. Infectious d isderek was consulted for antibiotic recommendations. Initial UA was concerning for UTI, he had an indwelling Slade catheter which was exchanged in the ER as per notes. Patient is awake, hemodynamically stable, had fever on admission. Remains nonverbal, unable to provide history. History obtained by chart review. Past History Past Medical History: COPD, diabetes, hypertension, stroke, other (obstructive uropathy on chronic Slade catheter, chronic dysphagia) Past Surgical History: Other (PEG tube placement, unable to obtain other surgical history due to altered mental status) Social history: other (unable to obtain due to altered mental status) Family history: other (unable to obtain due to altered mental status) Medications and Allergies Allergies Allergy/AdvReac Type Severity Reaction Status Date / Time No Known Allergies Allergy Verified 02/27/15 00:48 Home Medications Medication Instructions Recorded Confirmed Last Taken Type AtorvaSTATin [Lipitor] 40 mg FEEDTUBE QHS 06/21/16 11/11/18 06/20/16 History Ascorbic Acid [Vitamin C] 500 mg FEEDTUBE QDAY 07/14/18 11/11/18 Unknown History Aspirin [Adult Aspirin Regimen] 81 mg FEEDTUBE DAILY 07/14/18 11/11/18 Unknown History Ipratropium/Albuterol Sulfate 1 ampul IH Q6HR 07/14/18 11/11/18 Unknown History [DUONEB *Not for PRN Use*] Multivitamin [Multiple Vitamins] 1 each FEEDTUBE DAILY 07/14/18 11/11/18 Unknown History Protein Supplement [Promod] 30 ml FEEDTUBE Q8H 07/14/18 11/11/18 Unknown History Acetaminophen [Tylenol] 650 mg FEEDTUBE Q4HR PRN 11/11/18 11/11/18 Unknown History Gabapentin [Neurontin] 300 mg FEEDTUBE BID 11/11/18 11/11/18 Unknown History L. Acidophilus/L.bulgaricus 1 each FEEDTUBE QAM 11/11/18 11/11/18 Unknown History [Lactobacillus Tablet] Omeprazole 20 mg FEEDTUBE QAM 11/11/18 11/11/18 Unknown History Potassium Chloride 20 meq FEEDTUBE QDAY 11/11/18 11/11/18 Unknown History guaiFENesin DM [Robitussin Dm] 10 ml FEEDTUBE Q6HR PRN 11/11/18 11/11/18 Unknown History levoFLOXacin [Levaquin TAB] 500 mg FEEDTUBE QDAY 11/11/18 11/11/18 Unknown History Linezolid [Zyvox] 600 mg PO BID 5 Days #10 tablet 11/19/18 Unknown Rx Active Meds: Active Medications Acetaminophen (Tylenol) 650 mg PO Q4H PRN PRN Reason: Pain MILD(1-3)/Fever >100.5/WELLER Albuterol (Proventil) 2.5 mg IH Q4HRT PRN PRN Reason: Shortness Of Breath Lipase/Protease/Amylase (Pancreaze Dr 10,500 Unit) 1 each FEEDTUBE PRN PRN PRN Reason: For Clogged Feeding Tube Dextrose (D50w (25gm) Syringe) 50 ml IV PRN PRN PRN Reason: Hypoglycemia Famotidine (Pepcid) 20 mg PO BID [facility] Last Admin: 01/02/19 10:00 Dose: 20 mg Documented by: Heparin Sodium (Porcine) (Heparin) 5,000 unit SUB-Q Q8HR [facility] Last Admin: 01/02/19 14:23 Dose: 5,000 unit Documented by: Sodium Chloride (Nacl 0.9% 1000 Ml) 1,000 mls @ 150 mls/hr IV DIRECT [facility] Last Admin: 01/02/19 11:48 Dose: 150 mls/hr Documented by: Levofloxacin/Dextrose (Levaquin 250mg/50ml) 250 mg in 50 mls @ 50 mls/hr IV Q24H [facility] Last Admin: 01/02/19 11:49 Dose: 50 mls/hr Documented by: Piperacillin Sod/Tazobactam Sod (Zosyn/Ns 4.5gm/100ml) 4.5 gm in 100 mls @ 200 mls/hr IV Q8HR [facility]; Protocol Last Admin: 01/02/19 13:45 Dose: 200 mls/hr Documented by: Insulin Human Lispro (Humalog) 0 unit SUB-Q Q6HR [facility]; Protocol Last Admin: 01/02/19 06:36 Dose: Not Given Documented by: Ondansetron HCl (Zofran) 4 mg IV Q8H PRN PRN Reason: Nausea And Vomiting Simple Syrup (Simple Syrup) 15 ml FEEDTUBE PRN PRN PRN Reason: Hypoglycemia Simple Syrup (Simple Syrup) 30 ml FEEDTUBE PRN PRN PRN Reason: Hypoglycemia Sodium Bicarbonate (Sodium Bicarbonate) 325 mg FEEDTUBE PRN PRN PRN Reason: For Clogged Feeding Tube Sodium Chloride (Sodium Chloride Flush Syringe 10 Ml) 10 ml IV BID [facility] Last Admin: 01/01/19 21:54 Dose: 10 ml Documented by: Sodium Chloride (Sodium Chloride Flush Syringe 10 Ml) 10 ml IV PRN PRN PRN Reason: LINE FLUSH Review of Systems ROS unobtainable: due to mental status (baseline with aphasia) Physical Examination - Physical Exam Narrative exam: Physical Exam: Constitutional:Awake, doesn't follow commands, aphasic Head, Ears, Nose: Normocephalic, atraumatic. External ears, nose normal Eyes: Conjunctivae/corneas clear. No icterus. No ptosis. Neck: Supple, no meningeal signs Oral: unable to examine Cardiovascular: S1, S2 normal. Respiratory: Good air entry, clear to auscultation bilaterally GI: Soft, non-tender; bowel sounds normal. No peritoneal signs. G tube +. Indwelling slade Musculoskeletal: No pedal edema, no cyanosis. Contractures. Right femoral central line. Skin: No rash or abscess Hem/Lymphatic: No palpable cervical or supraclavicular nodes. No lymphangitis Psych: no agitation Neurological: awake, aphasic. - Constitutional Vitals: Vital Signs Temp Pulse Resp BP Pulse Ox 98.5 F 69 17 108/64 97 01/01/19 05:00 01/02/19 04:30 01/02/19 04:30 01/02/19 04:30 01/02/19 10:00 Results - Labs CBC & Chem 7: 01/02/19 03:28 01/02/19 03:28 Labs: Abnormal lab results 01/02/19 01/02/19 01/02/19 Range/Units 00:21 03:28 03:28 WBC 2.9 L (4.5-11.0) K/mm3 RBC 3.50 L (3.65-5.03) M/mm3 Hgb 10.8 L D (11.8-15.2) gm/dl Hct 32.6 L D (35.5-45.6) % Plt Count 62 L (140-440) K/mm3 [place] % (Auto) 11.4 H (0.0-7.3) % Lymph # 0.5 L (1.2-5.4) K/mm3 Seg Neutrophils % 71.3 H (40.0-70.0) % Sodium 152 H D (137-145) mmol/L Potassium 3.2 L D (3.6-5.0) mmol/L Chloride 120.5 H (98-107) mmol/L BUN 31 H (9-20) mg/dL Creatinine 0.6 L D (0.8-1.5) mg/dL Glucose 68 L (75-100) mg/dL POC Glucose 63 L (70-105) Calcium 8.2 L (8.4-10.2) mg/dL 01/02/19 01/02/19 01/02/19 Range/Units 03:45 06:08 12:28 WBC (4.5-11.0) K/mm3 RBC (3.65-5.03) M/mm3 Hgb (11.8-15.2) gm/dl Hct (35.5-45.6) % Plt Count (140-440) K/mm3 [place] % (Auto) (0.0-7.3) % Lymph # (1.2-5.4) K/mm3 Seg Neutrophils % (40.0-70.0) % Sodium (137-145) mmol/L Potassium (3.6-5.0) mmol/L Chloride (98-107) mmol/L BUN (9-20) mg/dL Creatinine (0.8-1.5) mg/dL Glucose (75-100) mg/dL POC Glucose 65 L 53 L 118 H (70-105) Calcium (8.4-10.2) mg/dL - Imaging and Cardiology Chest x-ray: report reviewed, image reviewed (no acute infiltrate) CT Scan - head: report reviewed, image reviewed (no acute change compared to previous CT) Assessment and Plan Cultures: Previous cultures reviewed. 12/31/2018 urine culture: Mixed jennifer on 12/31/2018 where culture: Both sets positive for gram-positive cocci in clusters A/P: 58-year-old male with hypertension, diabetes, COPD, CVA with aphasia and right- sided hemiparesis, contractures, dysphagia status post PEG tube placement, indw elling Slade catheter, recent hospitalization in October 2018 with respiratory culture positive for VISA (vancomycin intermediate Staphylococcus aureus) admitted with: 1) Septic shock: Shock resolved. Etiology unclear, likely UTI, but also GPC bacteremia. 2) GPC bacteremia: patient with history of VISA (vancomycin intermediate Staphylococcus aureus) in October 2018. Hence, switch to Linezolid. Ensure bacteremia clearance. F/U TTE. 3) CAUTI: Slade was exchanged in ER. Mixed growth on cultures. Switch to IV Cefepime x 5 days. 4) Acute encephalopathy: seems back to baseline. Recs: Contact precautions due to respiratory culture positive for VISA (vancomycin intermediate Staphylococcus aureus) in October 2018 Discontinued Zosyn, levofloxacin and vancomycin Switched to IV cefepime, linezolid TTE ordered Repeat blood cultures ordered Consider removal of R femoral central line (was placed during active bacteremia), already has peripheral IV D/W Dr. Aguilar. Susana Bolton MD [facility] C: [phone] O: [phone] F: [phone]
[2019-01-02] MEDS: MAXIPIME/NS 1 GM/100 ML 1 GM/100 ML BAG IV SCH ×2 (18:44→21:15)
[2019-01-02] MEDS: SODIUM CHLORIDE FLUSH SYRINGE 10 ML IV SCH (21:14)
[2019-01-02] MEDS: ZYVOX 600MG/300ML 600 MG/300 ML BAG IV SCH (21:17)
[2019-01-03] MEDS: NACL 0.9% 1000 ML 1,000 ML IV SCH ×3 (03:28→18:28)
[2019-01-03] MEDS: MAXIPIME/NS 1 GM/100 ML 1 GM/100 ML BAG IV SCH ×3 (03:28→20:01)
[2019-01-03] MEDS: HEPARIN SUB-Q SCH ×3 (06:13→21:19)
[2019-01-03] MEDS: HumaLOG SUB-Q SCH ×4 (06:18→18:27)
[2019-01-03] MEDS: ZYVOX 600MG/300ML 600 MG/300 ML BAG IV SCH ×2 (10:21→21:18)
[2019-01-03] MEDS: PEPCID PO SCH ×2 (10:21→21:19)
[2019-01-03] MEDS: SODIUM CHLORIDE FLUSH SYRINGE 10 ML IV SCH ×2 (10:23→21:20)
--- NOTE | 2019-01-03 11:02 | Progress Note ---
Assessment and Plan Assessment and plan: Patient is a 58-year-old male from [facility] with a history of CVA with significant residuals including aphasia/dysplagia/peg dependent/quadreplegia, COPD, diabetes, hypertension and indwelling Slade catheter who presented to the emergency department via EMS with altered mental status. Per report, patient is usually aphasic but does usually respond with his eyes, however today, he has been more altered than usual. Patient is unresponsive and no history could be obtained from him. In the ED, he was found to have a fever with tachycardia. Subsequently, his blood pressure trended down, for which he was started on IV pressor after central line placement. Septic shock, likely secondary to UTI -On sepsis protocol-On IV Zosyn and Levophed drip-Blood and urine cultures pending-ID consulted [facility]PC bacteremia: patient with history of VISA (vancomycin intermediate Staphylococcus aureus) in October 2018. Hence, switch to Linezolid. Ensure bacteremia clearance. F/U TTE. Acute on chronic metabolic encephalopathy-Likely secondary to the sepsis-Head CT scan negative-Monitor clinically Elevated troponin level-Likely demand ischemia due to the sepsis-Continue serial troponin level monitoring BETHEL, probably vasomotor nephropathy-On IV fluid, will monitor creatinine level- Consider renal ultrasound and nephrology consult if no improvement DM2 with hyperglycemia-On SSI Metabolic acidosis-Likely secondary to the hyperglycemia-Status post IV fluid boluses, we'll monitor bicarbonate level CVA with residual left hemiparesis-Continue supportive care History of obstructive uropathy on chronic Slade catheter-Continue Slade catheter care Chronic dysphagia-Status post PEG tube placement-Dietitian consulted for tube feeding Chronic debility/functional quadriplegia: -Continue supportive care History of COPD-No acute exacerbation-On PRN breathing treatment Severe protein calorie malnutrition, bmi 15.5-Dietitian consulted Hypokalemia: replace and recheck DVT ppx full code disposition: continue inpatient care, await cultures to finalize then back to [facility] and final abx recommendation from ID Remove right femoral line, consulted PICC line nurse. History Interval history: Patient was seen and examined. Follow-up on current diagnosis hypotension and AMS, uti sepsis. Overnight uneventful. Patient is nonverbal. Imaging, nursing note, chart, labs and old chart reviewed. Discussed with nursing at bedside Hospitalist Physical - Physical exam Narrative exam: Gen: chronic disable, criticially ill appearing, awake, will nod at some questions, nonverbal HEENT: NCAT, EOMI, PERRL, OP dry and pasty Neck: supple, no adenopathy, no thyromegaly, no JVD CVS/Heart: RRR, normal S1S2, pulses present bilaterally Chest/Lungs: poor effort Symmetrical chest expansion, good air entry bilaterally GI/Abdomen: soft, NTND, good bowel sounds, no guarding or rebound /Bladder: +chronic slade, mild suprapubic tenderness Extermity/Skin: mm dry, right femoral line MSK: contracted limbs Neuro: doesn't follow commands Psych: calm - Constitutional Vitals: Temp Pulse Resp BP Pulse Ox 98.2 F 68 18 124/82 97 01/03/19 09:10 01/03/19 09:10 01/03/19 09:10 01/03/19 09:10 01/03/19 09:20 General appearance: Present: no acute distress, other (unresponsive) Results - Labs CBC & Chem 7: 01/02/19 03:28 01/02/19 03:28 Labs: Laboratory Last Values WBC 2.9 K/mm3 (4.5-11.0) L 01/02/19 03:28 RBC 3.50 M/mm3 (3.65-5.03) L 01/02/19 03:28 Hgb 10.8 gm/dl (11.8-15.2) L D 01/02/19 03:28 Hct 32.6 % (35.5-45.6) L D 01/02/19 03:28 MCV 93 fl (84-94) 01/02/19 03:28 MCH 31 pg (28-32) 01/02/19 03:28 MCHC 33 % (32-34) 01/02/19 03:28 RDW 14.9 % (13.2-15.2) 01/02/19 03:28 Plt Count 62 K/mm3 (140-440) L 01/02/19 03:28 Lymph % (Auto) 16.9 % (13.4-35.0) 01/02/19 03:28 [place] % (Auto) 11.4 % (0.0-7.3) H 01/02/19 03:28 Eos % (Auto) 0.2 % (0.0-4.3) 01/02/19 03:28 Baso % (Auto) 0.2 % (0.0-1.8) 01/02/19 03:28 Lymph # 0.5 K/mm3 (1.2-5.4) L 01/02/19 03:28 [place] # 0.3 K/mm3 (0.0-0.8) 01/02/19 03:28 Eos # 0.0 K/mm3 (0.0-0.4) 01/02/19 03:28 Baso # 0.0 K/mm3 (0.0-0.1) 01/02/19 03:28 Add Manual Diff Complete 12/31/18 19:12 Total Counted 100 12/31/18 19:12 Seg Neutrophils % 71.3 % (40.0-70.0) H 01/02/19 03:28 Seg Neuts % (Manual) 79.0 % (40.0-70.0) H 12/31/18 19:12 Band Neutrophils % 4.0 % 12/31/18 19:12 Lymphocytes % (Manual) 5.0 % (13.4-35.0) L 12/31/18 19:12 Reactive Lymphs % (Man) 0 % 12/31/18 19:12 Monocytes % (Manual) 12.0 % (0.0-7.3) H 12/31/18 19:12 Eosinophils % (Manual) 0 % (0.0-4.3) 12/31/18 19:12 Basophils % (Manual) 0 % (0.0-1.8) 12/31/18 19:12 Metamyelocytes % 0 % 12/31/18 19:12 Myelocytes % 0 % 12/31/18 19:12 Promyelocytes % 0 % 12/31/18 19:12 Blast Cells % 0 % 12/31/18 19:12 Nucleated RBC % Not Reportable 12/31/18 19:12 Seg Neutrophils # 2.0 K/mm3 (1.8-7.7) 01/02/19 03:28 Seg Neutrophils # Man 6.6 K/mm3 (1.8-7.7) 12/31/18 19:12 Band Neutrophils # 0.3 K/mm3 12/31/18 19:12 Lymphocytes # (Manual) 0.4 K/mm3 (1.2-5.4) L 12/31/18 19:12 Abs React Lymphs (Man) 0.0 K/mm3 12/31/18 19:12 Monocytes # (Manual) 1.0 K/mm3 (0.0-0.8) H 12/31/18 19:12 Eosinophils # (Manual) 0.0 K/mm3 (0.0-0.4) 12/31/18 19:12 Basophils # (Manual) 0.0 K/mm3 (0.0-0.1) 12/31/18 19:12 Metamyelocytes # 0.0 K/mm3 12/31/18 19:12 Myelocytes # 0.0 K/mm3 12/31/18 19:12 Promyelocytes # 0.0 K/mm3 12/31/18 19:12 Blast Cells # 0.0 K/mm3 12/31/18 19:12 WBC Morphology Not Reportable 12/31/18 19:12 Hypersegmented Neuts Not Reportable 12/31/18 19:12 Hyposegmented Neuts Not Reportable 12/31/18 19:12 Hypogranular Neuts Not Reportable 12/31/18 19:12 Smudge Cells Not Reportable 12/31/18 19:12 Toxic Granulation Not Reportable 12/31/18 19:12 Toxic Vacuolation Not Reportable 12/31/18 19:12 Dohle Bodies Not Reportable 12/31/18 19:12 Pelger-Huet Anomaly Not Reportable 12/31/18 19:12 Meghan Rods Not Reportable 12/31/18 19:12 Platelet Estimate Appears decreased 12/31/18 19:12 Clumped Platelets Not Reportable 12/31/18 19:12 Plt Clumps, EDTA Not Reportable 12/31/18 19:12 Large Platelets Not Reportable 12/31/18 19:12 Giant Platelets Not Reportable 12/31/18 19:12 Platelet Satelliting Not Reportable 12/31/18 19:12 Plt Morphology Comment Not Reportable 12/31/18 19:12 RBC Morphology Not Reportable 12/31/18 19:12 Dimorphic RBCs Not Reportable 12/31/18 19:12 Polychromasia Not Reportable 12/31/18 19:12 Hypochromasia Not Reportable 12/31/18 19:12 Poikilocytosis Not Reportable 12/31/18 19:12 Anisocytosis Not Reportable 12/31/18 19:12 Microcytosis Not Reportable 12/31/18 19:12 Macrocytosis Not Reportable 12/31/18 19:12 Spherocytes Not Reportable 12/31/18 19:12 Pappenheimer Bodies Not Reportable 12/31/18 19:12 Sickle Cells Not Reportable 12/31/18 19:12 Target Cells Not Reportable 12/31/18 19:12 Tear Drop Cells Not Reportable 12/31/18 19:12 Ovalocytes Few 12/31/18 19:12 Helmet Cells Not Reportable 12/31/18 19:12 [place] Bodies Not Reportable 12/31/18 19:12 [place] Rings Not Reportable 12/31/18 19:12 Constantino Cells Not Reportable 12/31/18 19:12 Bite Cells Not Reportable 12/31/18 19:12 Crenated Cell Not Reportable 12/31/18 19:12 Elliptocytes Not Reportable 12/31/18 19:12 Acanthocytes (Spur) Not Reportable 12/31/18 19:12 Rouleaux Not Reportable 12/31/18 19:12 Hemoglobin C Crystals Not Reportable 12/31/18 19:12 Schistocytes Not Reportable 12/31/18 19:12 Malaria parasites Not Reportable 12/31/18 19:12 [place] Bodies Not Reportable 12/31/18 19:12 Hem Pathologist Commnt No 12/31/18 19:12 Sodium 152 mmol/L (137-145) H D 01/02/19 03:28 Potassium 3.2 mmol/L (3.6-5.0) L D 01/02/19 03:28 Chloride 120.5 mmol/L (98-107) H 01/02/19 03:28 Carbon Dioxide 23 mmol/L (22-30) 01/02/19 03:28 Anion Gap 12 mmol/L 01/02/19 03:28 BUN 31 mg/dL (9-20) H 01/02/19 03:28 Creatinine 0.6 mg/dL (0.8-1.5) L D 01/02/19 03:28 Estimated GFR > 60 ml/min 01/02/19 03:28 BUN/Creatinine Ratio 52 % 01/02/19 03:28 Glucose 68 mg/dL (75-100) L 01/02/19 03:28 POC Glucose 114 (70-105) H 01/03/19 06:22 Lactic Acid 1.40 mmol/L (0.7-2.0) 12/31/18 21:38 Calcium 8.2 mg/dL (8.4-10.2) L 01/02/19 03:28 Total Bilirubin 0.60 mg/dL (0.1-1.2) 12/31/18 19:12 AST 16 units/L (5-40) 12/31/18 19:12 ALT 14 units/L (7-56) 12/31/18 19:12 Alkaline Phosphatase 62 units/L (35-129) 12/31/18 19:12 Ammonia 66.0 umol/L (25-60) H 12/31/18 19:12 Total Creatine Kinase 38 units/L (55-170) L 12/31/18 19:12 Troponin T 0.041 ng/mL (0.00-0.029) H D 01/01/19 00:22 Total Protein 5.9 g/dL (6.3-8.2) L 12/31/18 19:12 Albumin 2.8 g/dL (3.9-5) L 12/31/18 19:12 Albumin/Globulin Ratio 0.9 % 12/31/18 19:12 Triglycerides 89 mg/dL (2-149) 12/31/18 19:12 Cholesterol 76 mg/dL (50-199) 12/31/18 19:12 LDL Cholesterol Direct 39 mg/dL (50-130) L 12/31/18 19:12 HDL Cholesterol 29 mg/dL (40-59) L 12/31/18 19:12 Cholesterol/HDL Ratio 2.62 % 12/31/18 19:12 TSH 1.030 mlU/mL (0.270-4.200) 12/31/18 19:12 Urine Color [place] (Yellow) 12/31/18 19:00 Urine Turbidity Turbid (Clear) 12/31/18 19:00 Urine pH 8.0 (5.0-7.0) H 12/31/18 19:00 Ur Specific [place] 1.010 (1.003-1.030) 04/12/19 19:00 Urine Protein 100 mg/dl mg/dL (Negative) 12/31/18 19:00 Urine Glucose (UA) Neg mg/dL (Negative) 12/31/18 19:00 Urine Ketones Neg mg/dL (Negative) 12/31/18 19:00 Urine Blood Neg (Negative) 12/31/18 19:00 Urine Nitrite Neg (Negative) 12/31/18 19:00 Urine Bilirubin Neg (Negative) 12/31/18 19:00 Urine Urobilinogen < 2.0 mg/dL (<2.0) 12/31/18 19:00 Ur Leukocyte Esterase Lg (Negative) 12/31/18 19:00 Urine WBC (Auto) > 182.0 /HPF (0.0-6.0) H 12/31/18 19:00 Urine RBC (Auto) 67.0 /HPF (0.0-6.0) 12/31/18 19:00 Urine Bacteria (Auto) 4+ /HPF (Negative) 12/31/18 19:00 Urine Mucus 2+ /HPF 12/31/18 19:00 Plasma/Serum Alcohol < 0.01 % (0-0.07) 12/31/18 19:12 Active Medications - Current Medications Current Medications: Generic Name Dose Route Start Last Admin Trade Name Freq PRN Reason Stop Dose Admin Acetaminophen 650 mg 01/01/19 00:35 Tylenol PO Q4H PRN Pain MILD(1-3)/Fever >100.5/WELLER Albuterol 2.5 mg 01/01/19 01:56 Proventil IH Q4HRT PRN Shortness Of Breath Lipase/Protease/Amylase 1 each 01/01/19 14:[address] 10,500 Unit FEEDTUBE PRN PRN For Clogged Feeding Tube Dextrose 50 ml 01/01/19 01:09 D50w (25gm) Syringe IV PRN PRN Hypoglycemia Famotidine 20 mg 01/02/19 10:00 01/03/19 10:21 Pepcid PO 20 mg BID SHIRA Administration Heparin Sodium (Porcine) 5,000 unit 01/01/19 06:00 01/03/19 06:13 Heparin SUB-Q 5,000 unit Q8HR SHIRA Administration Sodium Chloride 1,000 mls @ 150 mls/hr 01/01/19 12:00 01/03/19 10:41 Nacl 0.9% 1000 Ml IV 150 mls/hr DIRECT SHIRA Administration Linezolid 600 mg in 300 mls @ 300 mls/hr 01/02/19 22:00 01/03/19 10:21 Zyvox 600mg/300ml IV 300 mls/hr Q12HR SHIRA Administration Protocol Cefepime HCl 1 gm in 100 mls @ 200 mls/hr 01/03/19 04:00 01/03/19 03:28 Maxipime/Ns 1 Gm/100 Ml IV 200 mls/hr Q8H SHIRA Administration Protocol Insulin Human Lispro 0 unit 01/01/19 06:00 01/03/19 06:18 Humalog SUB-Q Not Given Q6HR [facility] Protocol Ondansetron HCl 4 mg 01/01/19 00:35 Zofran IV Q8H PRN Nausea And Vomiting Simple Syrup 15 ml 01/01/19 14:22 Simple Syrup FEEDTUBE PRN PRN Hypoglycemia Simple Syrup 30 ml 01/01/19 14:22 Simple Syrup FEEDTUBE PRN PRN Hypoglycemia Sodium Bicarbonate 325 mg 01/01/19 14:22 Sodium Bicarbonate FEEDTUBE PRN PRN For Clogged Feeding Tube Sodium Chloride 10 ml 01/01/19 10:00 01/03/19 10:23 Sodium Chloride Flush Syringe 10 Ml IV 10 ml BID SHIRA Administration Sodium Chloride 10 ml 01/01/19 00:35 Sodium Chloride Flush Syringe 10 Ml IV PRN PRN LINE FLUSH Nutrition/Malnutrition Assess - Dietary Evaluation Nutrition/Malnutrition Findings: Nutrition Notes Start: 01/01/19 14:04 Freq: Status: Active Protocol: Document 01/01/19 14:04 RM (Rec: 01/01/19 14:22 [email or web address]) Nutrition Notes Need for Assessment generated from: MD Order Initial or Follow up Assessment Current Diagnosis Acute Kidney Injury,COPD, Diabetes,Hypertension Other Pertinent Diagnosis L elbow wound, Hx CVA,Aphasia, Septic, Metabolic encephalopathy, PEG Current Diet NPO Labs/Tests Reviewed Pertinent Medications Reviewed Height 6 ft Weight 51.71 kg [place] Body Weight (kg) 80.90 BMI 15.4 Subjective/Other Information Consulted for malnutrition. Pt from NH and in ED. Per Hx and physical MD wants TF recommendation. Burn Absent Trauma Absent #1 Nutrition Diagnosis Inadequate oral intake Etiology Hx CVA As Evidenced by Signs and Symptoms pt requiring enteral nutrition to meet nutritional needs Is patient on ventilator? No Is Patient Ambulatory and/or Out of Bed No REE-([facility]-confined to bed) 1643.256 Kcal/Kg value to use for calculation 38 Approximate Energy Requirements Using 1965 kcal/Kg Calculation Used for Recommendations Kcal/kg Additional Notes Protein Needs: 62-78g (1.2-1. 5g/kg) Fluid Needs: 1 ml/kcal Nutrition Intervention Nutrition Support: Glucerna 1.2 at 70 ml/hr. Water flush of 100 mls q 4 hrs . Kcal 2,016 Protein (gm) 101 Fluid (mL) 1,352 Goal #1 TF tolerance Goal #2 Meet at least 75% of calorie and protein needs via TF Anticipated Discharge Needs: TF Follow-Up By: 01/03/19 Additional Comments Follow for new TF, malnutrition assessment
--- NOTE | 2019-01-03 12:01 | Progress Note ---
Assessment and Plan Cultures: Previous cultures reviewed. 12/31/2018 urine culture: Mixed jennifer on 12/31/2018 blood: CoNS, 3 out of 4 bottles 01/02/2019 blood: in progress A/P: 58-year-old male with hypertension, diabetes, COPD, CVA with aphasia and right- sided hemiparesis, contractures, dysphagia status post PEG tube placement, indwelling Slade catheter, recent hospitalization in October 2018 with respir atory culture positive for VISA (vancomycin intermediate Staphylococcus aureus) admitted with: 1) Septic shock: Shock resolved. Etiology unclear, likely UTI, also CoNS bacteremia. 2) CoNS bacteremia: 3 out of 4 bottles. patient with history of VISA (vancomycin intermediate Staphylococcus aureus) in October 2018. f/u repeat blood cultures to Ensure bacteremia clearance. Limited study, no valvular vegetation. Continue Linezolid and Cefepime. F/U ID and BRUCE's. 3) CAUTI: Slade was exchanged in ER. Mixed growth on cultures. Continue IV Cefepime x 5 days. 4) Acute encephalopathy: seems back to baseline. 5) Leukopenia: unknown etiology. Recs: Contact precautions due to respiratory culture positive for VISA (vancomycin intermediate Staphylococcus aureus) in October 2018 Continue linezolid 600 mg PO every 8 hours, D2 Continue Cefepime 1 gm IV every 8 hours, D1 of D5 f/u blood cultures ID and BRUCE's f/u Repeat blood cultures to ensure clearance Consider removal of R femoral central line (was placed during active bacteremia) [facility] M: [id number] O:[phone] Subjective Date of service: 01/03/19 Interval history: Patient seen and examined. Nonverbal communication. No acute distress observed. No family at bedside. Objective - Exam Narrative Exam: Constitutional:Awake, doesn't follow commands, aphasic Head, Ears, Nose: Normocephalic, atraumatic. External ears, nose normal Eyes: Conjunctivae/corneas clear. No icterus. No ptosis. Neck: Supple, no meningeal signs Oral: unable to examine Cardiovascular: S1, S2 normal. Respiratory: Good air entry, clear to auscultation bilaterally GI: Soft, non-tender; bowel sounds normal. No peritoneal signs. G tube +. Indwelling slade Musculoskeletal: No pedal edema, no cyanosis. Contractures. Right femoral central line. Skin: No rash or abscess Hem/Lymphatic: No palpable cervical or supraclavicular nodes. No lymphangitis Psych: no agitation Neurological: awake, aphasic. - Constitutional Vitals: Vital Signs Temp Pulse Resp BP Pulse Ox 98.2 F 68 18 124/82 97 01/03/19 09:10 01/03/19 09:10 01/03/19 09:10 01/03/19 09:10 01/03/19 09:20 Temperature -Last 24 Hours Temperature 98.2 F Temperature 98.5 F Temperature 98.7 F Temperature 98.7 F - Labs CBC & Chem 7: 01/02/19 03:28 01/02/19 03:28 Labs: Abnormal lab results 01/02/19 01/02/19 01/03/19 Range/Units 12:28 21:42 06:22 POC Glucose 118 H 122 H 114 H (70-105)
[2019-01-03] MEDS: NACL IV SCH (22:35)
[2019-01-04] MEDS: HumaLOG SUB-Q SCH ×4 (01:45→18:01)
[2019-01-04] MEDS: MAXIPIME/NS 1 GM/100 ML 1 GM/100 ML BAG IV SCH ×3 (04:33→20:27)
[2019-01-04] MEDS: HEPARIN SUB-Q SCH ×3 (07:31→23:28)
[2019-01-04 09:07] LABS: BUN/Creatinine Ratio 37; Blood Urea Nitrogen 11 mg/dL (9-20); Calcium 7.8 mg/dL (8.4-10.2); Hemolysis Index 65
[2019-01-04 09:28] LABS: Hematocrit 35.1 % (35.5-45.6); Hemoglobin 11.8 gm/dl (11.8-15.2); Mean Corpuscular HGB Conc 34 % (32-34); Mean Corpuscular Volume 92 fl (84-94); Red Blood Count 3.81 M/mm3 (3.65-5.03); Red Cell Distribution Width 14.3 % (13.2-15.2)
[2019-01-04 09:30] LABS: Platelet Count 80 K/mm3 (140-440)
--- NOTE | 2019-01-04 10:11 | Progress Note ---
Assessment and Plan Cultures: Previous cultures reviewed. 12/31/2018 urine culture: Mixed jennifer on 12/31/2018 blood: CoNS, 3 out of 4 bottles 01/02/2019 blood: no growth in 24 hours A/P: 58-year-old male with hypertension, diabetes, COPD, CVA with aphasia and right- sided hemiparesis, contractures, dysphagia status post PEG tube placement, indwelling Slade catheter, recent hospitalization in October 2018 with respiratory culture positive for VISA (vancomycin intermediate Staphylococcus aureus) admitted with: 1) Septic shock: Shock resolved. Etiology unclear, likely UTI, also CoNS bacteremia. 2) CoNS bacteremia: 3 out of 4 bottles. patient with history of VISA (vancomycin intermediate Staphylococcus aureus) in October 2018. Limited study, no valvular vegetation. Repeat cultures show no growth in 24 hours. If blood cultures negative for 48 hours, anticipate 2 more days of antibiotic therapy. Discontinue Linezolid, continue Cefepime, start Vancomycin. 3) CAUTI: Slade was exchanged in ER. Mixed growth on cultures. 4) Acute encephalopathy: seems back to baseline. 5) Leukopenia: unknown etiology. Recs: Continue contact precautions Discontinue linezolid Continue Cefepime 1 gm IV every 8 hours, D2 Start Vancomycin 1 gm IV every 12 hours If blood cultures negative for 48 hours, anticipate 2 more days of antibiotic therapy f/u blood cultures ID and BRUCE's f/u Repeat blood cultures to ensure clearance [facility] M: [id number] O:[phone] Subjective Date of service: 01/04/19 Interval history: Patient seen and examined. Nonverbal communication. No acute distress observed. No family at bedside. Objective - Exam Narrative Exam: Constitutional:Awake, doesn't follow commands, aphasic Head, Ears, Nose: Normocephalic, atraumatic. External ears, nose normal Eyes: Conjunctivae/corneas clear. No icterus. No ptosis. Neck: Supple, no meningeal signs Oral: unable to examine Cardiovascular: S1, S2 normal. Respiratory: Good air entry, clear to auscultation bilaterally GI: Soft, non-tender; bowel sounds normal. No peritoneal signs. G tube +. Indwelling slade Musculoskeletal: No pedal edema, no cyanosis. Contractures. Right femoral centr al line. Skin: No rash or abscess Hem/Lymphatic: No palpable cervical or supraclavicular nodes. No lymphangitis Psych: no agitation Neurological: awake, aphasic. - Constitutional Vitals: Vital Signs Temp Pulse Resp BP Pulse Ox 98.1 F 66 20 88/67 93 01/04/19 07:49 01/04/19 07:49 01/04/19 07:49 01/04/19 07:49 01/04/19 07:49 Temperature -Last 24 Hours Temperature 98.1 F Temperature 97.3 F Temperature 97.9 F Temperature 98.0 F Temperature 97.3 F - Labs CBC & Chem 7: 01/04/19 09:11 01/04/19 08:21 Labs: Abnormal lab results 01/03/19 01/04/19 01/04/19 Range/Units 11:56 07:49 08:21 WBC (4.5-11.0) K/mm3 Hct (35.5-45.6) % Plt Count (140-440) K/mm3 Creatinine 0.3 L (0.8-1.5) mg/dL Glucose 110 H (75-100) mg/dL POC Glucose 154 H 125 H (70-105) Calcium 7.8 L (8.4-10.2) mg/dL 01/04/19 Range/Units 09:11 WBC 4.3 L (4.5-11.0) K/mm3 Hct 35.1 L (35.5-45.6) % Plt Count 80 L (140-440) K/mm3 Creatinine (0.8-1.5) mg/dL Glucose (75-100) mg/dL POC Glucose (70-105) Calcium (8.4-10.2) mg/dL
[2019-01-04] MEDS: PEPCID PO SCH ×2 (10:51→23:28)
[2019-01-04] MEDS: ZYVOX 600MG/300ML 600 MG/300 ML BAG IV SCH (10:51)
--- NOTE | 2019-01-04 11:58 | Progress Note ---
Assessment and Plan Assessment and plan: 58m who was sent from her [facility] residential. The patient has a history of CVA with significant residual deficits including aphasia, dysphagia status post PEG, functional quadriplegia, COPD, diabetes, hypertension, chronic indwelling [place] catheter. He was sent to the hospital for altered mental status. He was also found to have hypotension. The patient was found to have sepsis secondary to UTI and gram-positive bacteremia, which was, and intermediate Staphylococcus aureus. He has been weaned off IV pressors. The patient's is currently on antibiotics Leak in troponin was most likely due to demand ischemia, medical management was given The patient had acute kidney injury due to vasomotor nephropathy, he received IV fluids after which she improved -He was treated with insulin for diabetes. 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 Severe protein calorie malnutrition Hypokalemia Chronic dysphagia History of obstructive uropathy status post Tijer[place] History Interval history: Review of systems Constitutional: No fevers, no malaise, no joint pains CVS: No chest pain, no orthopnea, no dyspnea on exertion, no pedal edema GI: No abdominal pain, no diarrhea, no vomiting, no constipation Respiratory: No shortness of breath, no wheezing, no coughing Hospitalist Physical - Physical exam Narrative exam: General.: Appears well, no distress, nontoxic HEENT: Moist mucous membranes, extraocular muscles intact, no lymphadenopathy Neck: supple Cardiac: S1-S2 heard Lungs: clear to auscultation bilaterally Abdomen: soft , nontender, nondistended, bowel sounds positive Extremities: no edema clubbing or cyanosis Skin: no rash or lesions Neurologic: Patient opens eyes, nonverbal, aphasic, doesn't have the commands, does not the left side Psych: calm, - Constitutional Vitals: Temp Pulse Resp BP Pulse Ox 98.1 F 66 20 88/67 93 01/04/19 07:49 01/04/19 07:49 01/04/19 07:49 01/04/19 07:49 01/04/19 11:04 General appearance: Present: no acute distress, other (unresponsive) Results - Labs CBC & Chem 7: 01/04/19 09:11 01/04/19 08:21 Labs: Laboratory Last Values WBC 4.3 K/mm3 (4.5-11.0) L 01/04/19 09:11 RBC 3.81 M/mm3 (3.65-5.03) 01/04/19 09:11 Hgb 11.8 gm/dl (11.8-15.2) 01/04/19 09:11 Hct 35.1 % (35.5-45.6) L 01/04/19 09:11 MCV 92 fl (84-94) 01/04/19 09:11 MCH 31 pg (28-32) 01/04/19 09:11 MCHC 34 % (32-34) 01/04/19 09:11 RDW 14.3 % (13.2-15.2) 01/04/19 09:11 Plt Count 80 K/mm3 (140-440) L 01/04/19 09:11 Lymph % (Auto) 16.9 % (13.4-35.0) 01/02/19 03:28 [place] % (Auto) 11.4 % (0.0-7.3) H 01/02/19 03:28 Eos % (Auto) 0.2 % (0.0-4.3) 01/02/19 03:28 Baso % (Auto) 0.2 % (0.0-1.8) 01/02/19 03:28 Lymph # 0.5 K/mm3 (1.2-5.4) L 01/02/19 03:28 [place] # 0.3 K/mm3 (0.0-0.8) 01/02/19 03:28 Eos # 0.0 K/mm3 (0.0-0.4) 01/02/19 03:28 Baso # 0.0 K/mm3 (0.0-0.1) 01/02/19 03:28 Add Manual Diff Complete 12/31/18 19:12 Total Counted 100 12/31/18 19:12 Seg Neutrophils % 71.3 % (40.0-70.0) H 01/02/19 03:28 Seg Neuts % (Manual) 79.0 % (40.0-70.0) H 12/31/18 19:12 Band Neutrophils % 4.0 % 12/31/18 19:12 Lymphocytes % (Manual) 5.0 % (13.4-35.0) L 12/31/18 19:12 Reactive Lymphs % (Man) 0 % 12/31/18 19:12 Monocytes % (Manual) 12.0 % (0.0-7.3) H 12/31/18 19:12 Eosinophils % (Manual) 0 % (0.0-4.3) 12/31/18 19:12 Basophils % (Manual) 0 % (0.0-1.8) 12/31/18 19:12 Metamyelocytes % 0 % 12/31/18 19:12 Myelocytes % 0 % 12/31/18 19: Promyelocytes % 0 % 12/31/18 19:12 Blast Cells % 0 % 12/31/18 19:12 Nucleated RBC % Not Reportable 12/31/18 19:12 Seg Neutrophils # 2.0 K/mm3 (1.8-7.7) 01/02/19 03:28 Seg Neutrophils # Man 6.6 K/mm3 (1.8-7.7) 12/31/18 19:12 Band Neutrophils # 0.3 K/mm3 12/31/18 19:12 Lymphocytes # (Manual) 0.4 K/mm3 (1.2-5.4) L 12/31/18 19:12 Abs React Lymphs (Man) 0.0 K/mm3 12/31/18 19:12 Monocytes # (Manual) 1.0 K/mm3 (0.0-0.8) H 12/31/18 19:12 Eosinophils # (Manual) 0.0 K/mm3 (0.0-0.4) 12/31/18 19:12 Basophils # (Manual) 0.0 K/mm3 (0.0-0.1) 12/31/18 19:12 Metamyelocytes # 0.0 K/mm3 12/31/18 19:12 Myelocytes # 0.0 K/mm3 12/31/18 19:12 Promyelocytes # 0.0 K/mm3 12/31/18 19:12 Blast Cells # 0.0 K/mm3 12/31/18 19:12 WBC Morphology Not Reportable 12/31/18 19:12 Hypersegmented Neuts Not Reportable 12/31/18 19:12 Hyposegmented Neuts Not Reportable 12/31/18 19:12 Hypogranular Neuts Not Reportable 12/31/18 19:12 Smudge Cells Not Reportable 12/31/18 19:12 Toxic Granulation Not Reportable 12/31/18 19:12 Toxic Vacuolation Not Reportable 12/31/18 19:12 Dohle Bodies Not Reportable 12/31/18 19:12 Pelger-Huet Anomaly Not Reportable 12/31/18 19:12 Meghan Rods Not Reportable 12/31/18 19:12 Platelet Estimate Appears decreased 12/31/18 19:12 Clumped Platelets Not Reportable 12/31/18 19:12 Plt Clumps, EDTA Not Reportable 12/31/18 19:12 Large Platelets Not Reportable 12/31/18 19:12 Giant Platelets Not Reportable 12/31/18 19:12 Platelet Satelliting Not Reportable 12/31/18 19:12 Plt Morphology Comment Not Reportable 12/31/18 19:12 RBC Morphology Not Reportable 12/31/18 19:12 Dimorphic RBCs Not Reportable 12/31/18 19:12 Polychromasia Not Reportable 12/31/18 19:12 Hypochromasia Not Reportable 12/31/18 19:12 Poikilocytosis Not Reportable 12/31/18 19:12 Anisocytosis Not Reportable 12/31/18 19:12 Microcytosis Not Reportable 12/31/18 19:12 Macrocytosis Not Reportable 12/31/18 19:12 Spherocytes Not Reportable 12/31/18 19:12 Pappenheimer Bodies Not Reportable 12/31/18 19:12 Sickle Cells Not Reportable 12/31/18 19:12 Target Cells Not Reportable 12/31/18 19:12 Tear Drop Cells Not Reportable 12/31/18 19:12 Ovalocytes Few 12/31/18 19:12 Helmet Cells Not Reportable 12/31/18 19:12 Martin-Maxwell Bodies Not Reportable 12/31/18 19:12 Opal Rings Not Reportable 12/31/18 19:12 Constantino Cells Not Reportable 12/31/18 19:12 Bite Cells Not Reportable 12/31/18 19:12 Crenated Cell Not Reportable 12/31/18 19:12 Elliptocytes Not Reportable 12/31/18 19:12 Acanthocytes (Spur) Not Reportable 12/31/18 19:12 Rouleaux Not Reportable 12/31/18 19:12 Hemoglobin C Crystals Not Reportable 12/31/18 19:12 Schistocytes Not Reportable 12/31/18 19:12 Malaria parasites Not Reportable 12/31/18 19:12 Alton Bodies Not Reportable 12/31/18 19:12 Hem Pathologist Commnt No 12/31/18 19:12 Sodium 139 mmol/L (137-145) D 01/04/19 08:21 Potassium 4.0 mmol/L (3.6-5.0) D 01/04/19 08:21 Chloride 105.7 mmol/L (98-107) 01/04/19 08:21 Carbon Dioxide 24 mmol/L (22-30) 01/04/19 08:21 Anion Gap 13 mmol/L 01/04/19 08:21 BUN 11 mg/dL (9-20) 01/04/19 08:21 Creatinine 0.3 mg/dL (0.8-1.5) L 01/04/19 08:21 Estimated GFR > 60 ml/min 01/04/19 08:21 BUN/Creatinine Ratio 37 % 01/04/19 08:21 Glucose 110 mg/dL (75-100) H 01/04/19 08:21 POC Glucose 125 (70-105) H 01/04/19 07:49 Lactic Acid 1.40 mmol/L (0.7-2.0) 12/31/18 21:38 Calcium 7.8 mg/dL (8.4-10.2) L 01/04/19 08:21 Total Bilirubin 0.60 mg/dL (0.1-1.2) 12/31/18 19:12 AST 16 units/L (5-40) 12/31/18 19:12 ALT 14 units/L (7-56) 12/31/18 19:12 Alkaline Phosphatase 62 units/L (35-129) 12/31/18 19:12 Ammonia 66.0 umol/L (25-60) H 12/31/18 19:12 Total Creatine Kinase 38 units/L (55-170) L 12/31/18 19:12 Troponin T 0.041 ng/mL (0.00-0.029) H D 01/01/19 00:22 Total Protein 5.9 g/dL (6.3-8.2) L 12/31/18 19:12 Albumin 2.8 g/dL (3.9-5) L 12/31/18 19:12 Albumin/Globulin Ratio 0.9 % 12/31/18 19:12 Triglycerides 89 mg/dL (2-149) 12/31/18 19: Cholesterol 76 mg/dL (50-199) 12/31/18 19: LDL Cholesterol Direct 39 mg/dL (50-130) L 12/31/18: HDL Cholesterol 29 mg/dL (40-59) L 12/31/18: Cholesterol/HDL Ratio 2.62 % 12/31/18 19: TSH 1.030 mlU/mL (0.270-4.200) 12/31/18 19:12 Urine Color Mar[place] (Yellow) 12/31/18 19: Urine Turbidity Turbid (Clear) 12/31/18 19: Urine pH 8.0 (5.0-7.0) H 12/31/18 19: Ur Specific [place] 1.010 (1.003-1.030) 12/31/18 19: Urine Protein 100 mg/dl mg/dL (Negative) 12/31/18 19:00 Urine Glucose (UA) Neg mg/dL (Negative) 12/31/18 19: Urine Ketones Neg mg/dL (Negative) 12/31/18 19: Urine Blood Neg (Negative) 12/31/18 19: Urine Nitrite Neg (Negative) 12/31/18 19: Urine Bilirubin Neg (Negative) 12/31/18 19: Urine Urobilinogen < 2.0 mg/dL (<2.0) 12/31/18 19: Ur Leukocyte Esterase Lg (Negative) 12/31/18 19: Urine WBC (Auto) > 182.0 /HPF (0.0-6.0) H 12/31/18 19:00 Urine RBC (Auto) 67.0 /HPF (0.0-6.0) 12/31/18 19: Urine Bacteria (Auto) 4+ /HPF (Negative) 12/31/18 19:00 Urine Mucus 2+ /HPF 12/31/18 19:00 Plasma/Serum Alcohol < 0.01 % (0-0.07) 12/31/18 19:12 Active Medications - Current Medications Current Medications: Generic Name Dose Route Start Last Admin Trade Name Freq PRN Reason Stop Dose Admin Acetaminophen 650 mg 01/01/19 00:35 Tylenol PO Q4H PRN Pain MILD(1-3)/Fever >100.5/WELLER Albuterol 2.5 mg 01/01/19 01:56 Proventil IH Q4HRT PRN Shortness Of Breath Lipase/Protease/Amylase 1 each 01/01/19 14:22 Pancreaze 10,500 Unit FEEDTUBE PRN PRN For Clogged Feeding Tube Dextrose 50 ml 01/01/19 01:09 D50w (25gm) Syringe IV PRN PRN Hypoglycemia Famotidine 20 mg 01/02/19 10:00 01/04/19 10:51 Pepcid PO 20 mg BID SHIRA Administration Heparin Sodium (Porcine) 5,000 unit 01/01/19 06:00 01/04/19 07:31 Heparin SUB-Q 5,000 unit Q8HR SHIRA Administration Linezolid 600 mg in 300 mls @ 300 mls/hr 01/02/19 22:00 01/04/19 10:51 Zyvox 600mg/300ml IV 300 mls/hr Q12HR SHIRA Administration Protocol Cefepime HCl 1 gm in 100 mls @ 200 mls/hr 01/03/19 04:00 01/04/19 04:33 Maxipime/Ns 1 Gm/100 Ml IV 200 mls/hr Q8H SHIRA Administration Protocol Sterile Water 1,000 mls @ 83 mls/hr 01/03/19 22:00 01/03/19 22:35 Nacl 0.225% IV 83 mls/hr DIRECT SHIRA Administration Insulin Human Lispro 0 unit 01/01/19 06:00 01/04/19 07:28 Humalog SUB-Q Not Given Q6HR SHIRA Protocol Ondansetron HCl 4 mg 01/01/19 00:35 Zofran IV Q8H PRN Nausea And Vomiting Simple Syrup 15 ml 01/01/19 14:22 Simple Syrup FEEDTUBE PRN PRN Hypoglycemia Simple Syrup 30 ml 01/01/19 14:22 Simple Syrup FEEDTUBE PRN PRN Hypoglycemia Sodium Bicarbonate 325 mg 01/01/19 14:22 Sodium Bicarbonate FEEDTUBE PRN PRN For Clogged Feeding Tube Sodium Chloride 10 ml 01/01/19 10:00 01/03/19 21:20 Sodium Chloride Flush Syringe 10 Ml IV 10 ml BID SHIRA Administration Sodium Chloride 10 ml 01/01/19 00:35 Sodium Chloride Flush Syringe 10 Ml IV PRN PRN LINE FLUSH Nutrition/Malnutrition Assess - Dietary Evaluation Nutrition/Malnutrition Findings: Nutrition Notes Start: 01/01/19 14:04 Freq: Status: Active Protocol: Document 01/03/19 15:42 RM (Rec: 01/03/19 15:49 RM [id number]) Nutrition Notes Initial or Follow up Reassessment Current Diagnosis Acute Kidney Injury,COPD, Diabetes,Hypertension Other Pertinent Diagnosis L elbow wound, Hx CVA,Aphasia, Septic, Metabolic encephalopathy, PEG Current Diet Glucerna 1.2 at 70 ml/hr Labs/Tests Na 152 Pertinent Medications Reviewed Height 6 ft Weight 51.71 kg [place] Body Weight (kg) 80.90 BMI 15.4 Subjective/Other Information Pt does not appear to have BMI of 15.5. Unable to weigh pt on bedscale. [employer] asked nurse to weigh pt when possible to update wt in record. Observed Glucerna infusing at 50 ml/hr. Per nurse pt is tolerating TF. No temporal or orbital wasting . Percent of energy/protein needs met: 100%/100% Burn Absent Trauma Absent #1 Nutrition Diagnosis Inadequate oral intake Diagnosis Progress(for reassessment Continues documentation) Is patient on ventilator? No Is Patient Ambulatory and/or Out of Bed No REE-([facility]-confined to bed) 1643.256 Kcal/Kg value to use for calculation 38 Approximate Energy Requirements Using 1965 kcal/Kg Calculation Used for Recommendations Kcal/kg Additional Notes Protein Needs: 62-78g (1.2-1. 5g/kg) Fluid Needs: 1 ml/kcal Nutrition Intervention Nutrition Support: Glucerna 1.2 at 70 ml/hr. Water flush of 150 mls q 4 hrs until hypernatremia resolves. Water flush of 100 mls q 4 hrs once hypernaremia resolves. Kcal 2,016 Protein (gm) 101 Fluid (mL) 1,352 Goal #1 TF tolerance Goal #2 Continue to meet at least 75% of calorie and protein needs via TF Anticipated Discharge Needs: Glucerna 1.2 Follow-Up By: 01/05/19 Additional Comments Follow for Yanni bailey
[2019-01-04] MEDS: SODIUM CHLORIDE FLUSH SYRINGE 10 ML IV SCH ×3 (14:21→23:29)
[2019-01-04] MEDS ORDERED: VANCOMYCIN PHARMACY TO DOSE IV SCH (15:00)
[2019-01-04] MEDS: VANCOMYCIN/NS 1 GM/250 ML 1 GM/250 ML BAG IV SCH (17:08)
[2019-01-04] MEDS: NACL IV SCH (17:25)
[2019-01-05] MEDS: MAXIPIME/NS 1 GM/100 ML 1 GM/100 ML BAG IV SCH ×3 (03:30→22:51)
[2019-01-05] MEDS: VANCOMYCIN/NS 1 GM/250 ML 1 GM/250 ML BAG IV SCH ×2 (04:32→18:05)
[2019-01-05] MEDS: HEPARIN SUB-Q SCH ×3 (05:52→22:52)
[2019-01-05] MEDS: HumaLOG SUB-Q SCH ×4 (06:00→18:15)
[2019-01-05] MEDS: PEPCID PO SCH ×2 (10:08→23:09)
[2019-01-05] MEDS: SODIUM CHLORIDE FLUSH SYRINGE 10 ML IV SCH ×2 (10:09→23:09)
--- NOTE | 2019-01-05 10:44 | Progress Note ---
Assessment and Plan Cultures: Previous cultures reviewed. 12/31/2018 urine culture: Mixed jennifer on 12/31/2018 blood: CoNS, 3 out of 4 bottles 01/02/2019 blood: no growth in 48 hours A/P: 58-year-old male with hypertension, diabetes, COPD, CVA with aphasia and right- sided hemiparesis, contractures, dysphagia status post PEG tube placement, indwelling Slade catheter, recent hospitalization in October 2018 with respiratory culture positive for VISA (vancomycin intermediate Staphylococcus aureus) admitted with: 1) Septic shock: Shock resolved. Etiology unclear, likely UTI, also CoNS bacteremia. 2) CoNS bacteremia: 3 out of 4 bottles. patient with history of VISA (vancomycin intermediate Staphylococcus aureus) in October 2018. Limited study, no valvular vegetation. Repeat cultures show no growth in 48 hours. Last dose of Vancomycin and Cefepime 01/06/19. 3) CAUTI: Slade was exchanged in ER. Mixed growth on cultures. 4) Acute encephalopathy: seems back to baseline. 5) Leukopenia: unknown etiology. Recs: Continue contact precautions Continue Cefepime 1 gm IV every 8 hours, D3 of D4 Continue Vancomycin 1 gm IV every 12 hours, D2 of D3 Brenda Griffiths NP [facility] M: [phone] O:[phone] Subjective Date of service: 01/05/19 Interval history: Patient seen and examined. Nonverbal communication. No acute distress observed. No family at bedside. Objective - Exam Narrative Exam: Constitutional:Awake, doesn't follow commands, aphasic Head, Ears, Nose: Normocephalic, atraumatic. External ears, nose normal Eyes: Conjunctivae/corneas clear. No icterus. No ptosis. Neck: Supple, no meningeal signs Oral: unable to examine Cardiovascular: S1, S2 normal. Respiratory: Good air entry, clear to auscultation bilaterally GI: Soft, non-tender; bowel sounds normal. No peritoneal signs. G tube +. Indwelling slade Musculoskeletal: No pedal edema, no cyanosis. Contractures. Right femoral central line. Skin: No rash or abscess Hem/Lymphatic: No palpable cervical or supraclavicular nodes. No lymphangitis Psych: no agitation Neurological: awake, aphasic. - Constitutional Vitals: Vital Signs Temp Pulse Resp BP Pulse Ox 97.4 F L 79 18 107/78 94 04/17/19 08:39 01/05/19 08:39 01/05/19 08:39 01/05/19 08:39 01/05/19 08:39 Temperature -Last 24 Hours Temperature 97.4 F Temperature 98.3 F Temperature 99.2 F Temperature 98.3 F - Labs CBC & Chem 7: 01/04/19 09:11 01/04/19 08:21 Labs: Abnormal lab results 01/04/19 01/04/19 01/05/19 Range/Units 12:27 17:57 00:38 POC Glucose 154 H 111 H 121 H (70-105) 01/05/19 Range/Units 06:01 POC Glucose 109 H (70-105)
--- NOTE | 2019-01-05 11:10 | Progress Note ---
Assessment and Plan Assessment and plan: 58m who was sent from her [facility] group home. The patient has a history of CVA with significant residual deficits including aphasia, dysphagia status post PEG, functional quadriplegia, COPD, diabetes, hypertension, chronic indwelling [place] catheter. He was sent to the hospital for altered mental status. He was also found to have hypotension. The patient was found to have sepsis secondary to UTI and gram-positive bacteremia, which was, and intermediate Staphylococcus aureus. He has been weaned off IV pressors. The patient's is currently on antibiotics Leak in troponin was most likely due to demand ischemia, medical management was given The patient had acute kidney injury due to vasomotor nephropathy, he received IV fluids after which she improved -He was treated with insulin for diabetes. 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 Severe protein calorie malnutrition Hypokalemia Chronic dysphagia History of obstructive uropathy status post [place] History Interval history: Review of systems Constitutional: No fevers, no malaise, no joint pains CVS: No chest pain, no orthopnea, no dyspnea on exertion, no pedal edema GI: No abdominal pain, no diarrhea, no vomiting, no constipation Respiratory: No shortness of breath, no wheezing, no coughing Hospitalist Physical - Physical exam Narrative exam: General.: Appears well, no distress, nontoxic HEENT: Moist mucous membranes, extraocular muscles intact, no lymphadenopathy Neck: supple Cardiac: S1-S2 heard Lungs: clear to auscultation bilaterally Abdomen: soft , nontender, nondistended, bowel sounds positive Extremities: no edema clubbing or cyanosis Skin: no rash or lesions Neurologic: Patient opens eyes, nonverbal, aphasic, doesn't obety the commands, does not move the left side Psych: calm, - Constitutional Vitals: Temp Pulse Resp BP Pulse Ox 97.4 F L 79 18 107/78 94 01/05/19 08:39 01/05/19 08:39 01/05/19 08:39 01/05/19 08:39 01/05/19 08:39 General appearance: Present: no acute distress, other (unresponsive) Results - Labs CBC & Chem 7: 01/04/19 09:11 01/04/19 08:21 Labs: Laboratory Last Values WBC 4.3 K/mm3 (4.5-11.0) L 01/04/19 09:11 RBC 3.81 M/mm3 (3.65-5.03) 01/04/19 09:11 Hgb 11.8 gm/dl (11.8-15.2) 01/04/19 09:11 Hct 35.1 % (35.5-45.6) L 01/04/19 09:11 MCV 92 fl (84-94) 01/04/19 09:11 MCH 31 pg (28-32) 01/04/19 09:11 MCHC 34 % (32-34) 01/04/19 09:11 RDW 14.3 % (13.2-15.2) 01/04/19 09:11 Plt Count 80 K/mm3 (140-440) L 01/04/19 09:11 Lymph % (Auto) 16.9 % (13.4-35.0) 01/02/19 03:28 [place] % (Auto) 11.4 % (0.0-7.3) H 01/02/19 03:28 Eos % (Auto) 0.2 % (0.0-4.3) 01/02/19 03:28 Baso % (Auto) 0.2 % (0.0-1.8) 01/02/19 03:28 Lymph # 0.5 K/mm3 (1.2-5.4) L 01/02/19 03:28 [place] # 0.3 K/mm3 (0.0-0.8) 01/02/19 03:28 Eos # 0.0 K/mm3 (0.0-0.4) 01/02/19 03:28 Baso # 0.0 K/mm3 (0.0-0.1) 01/02/19 03:28 Add Manual Diff Complete 12/31/18 19:12 Total Counted 100 12/31/18 19:12 Seg Neutrophils % 71.3 % (40.0-70.0) H 01/02/19 03:28 Seg Neuts % (Manual) 79.0 % (40.0-70.0) H 12/31/18 19:12 Band Neutrophils % 4.0 % 12/31/18 19:12 Lymphocytes % (Manual) 5.0 % (13.4-35.0) L 12/31/18 19:12 Reactive Lymphs % (Man) 0 % 12/31/18 19:12 Monocytes % (Manual) 12.0 % (0.0-7.3) H 12/31/18 19:12 Eosinophils % (Manual) 0 % (0.0-4.3) 12/31/18 19:12 Basophils % (Manual) 0 % (0.0-1.8) 12/31/18 19:12 Metamyelocytes % 0 % 12/31/18 19:12 Myelocytes % 0 % 12/31/18 19:12 Promyelocytes % 0 % 12/31/18 19:12 Blast Cells % 0 % 12/31/18 19:12 Nucleated RBC % Not Reportable 12/31/18 19:12 Seg Neutrophils # 2.0 K/mm3 (1.8-7.7) 01/02/19 03:28 Seg Neutrophils # Man 6.6 K/mm3 (1.8-7.7) 12/31/18 19:12 Band Neutrophils # 0.3 K/mm3 12/31/18 19:12 Lymphocytes # (Manual) 0.4 K/mm3 (1.2-5.4) L 12/31/18 19:12 Abs React Lymphs (Man) 0.0 K/mm3 12/31/18 19:12 Monocytes # (Manual) 1.0 K/mm3 (0.0-0.8) H 12/31/18 19:12 Eosinophils # (Manual) 0.0 K/mm3 (0.0-0.4) 12/31/18 19:12 Basophils # (Manual) 0.0 K/mm3 (0.0-0.1) 12/31/18 19:12 Metamyelocytes # 0.0 K/mm3 12/31/18 19:12 Myelocytes # 0.0 K/mm3 12/31/18 19:12 Promyelocytes # 0.0 K/mm3 12/31/18 19:12 Blast Cells # 0.0 K/mm3 12/31/18 19:12 WBC Morphology Not Reportable 04/12/19 19:12 Hypersegmented Neuts Not Reportable 12/31/18 19:12 Hyposegmented Neuts Not Reportable 12/31/18 19:12 Hypogranular Neuts Not Reportable 12/31/18 19:12 Smudge Cells Not Reportable 12/31/18 19:12 Toxic Granulation Not Reportable 12/31/18 19:12 Toxic Vacuolation Not Reportable 12/31/18 19:12 Dohle Bodies Not Reportable 12/31/18 19:12 Pelger-Huet Anomaly Not Reportable 12/31/18 19:12 Meghan Rods Not Reportable 12/31/18 19:12 Platelet Estimate Appears decreased 12/31/18 19:12 Clumped Platelets Not Reportable 12/31/18 19:12 Plt Clumps, EDTA Not Reportable 12/31/18 19:12 Large Platelets Not Reportable 12/31/18 19:12 Giant Platelets Not Reportable 12/31/18 19:12 Platelet Satelliting Not Reportable 12/31/18 19:12 Plt Morphology Comment Not Reportable 12/31/18 19:12 RBC Morphology Not Reportable 12/31/18 19:12 Dimorphic RBCs Not Reportable 12/31/18 19:12 Polychromasia Not Reportable 12/31/18 19:12 Hypochromasia Not Reportable 12/31/18 19:12 Poikilocytosis Not Reportable 12/31/18 19:12 Anisocytosis Not Reportable 12/31/18 19:12 Microcytosis Not Reportable 12/31/18 19:12 Macrocytosis Not Reportable 12/31/18 19:12 Spherocytes Not Reportable 12/31/18 19:12 Pappenheimer Bodies Not Reportable 12/31/18 19:12 Sickle Cells Not Reportable 12/31/18 19:12 Target Cells Not Reportable 12/31/18 19:12 Tear Drop Cells Not Reportable 12/31/18 19:12 Ovalocytes Few 12/31/18 19:12 Helmet Cells Not Reportable 12/31/18 19:12 Martin-Gerster Bodies Not Reportable 12/31/18 19:12 Golden Rings Not Reportable 12/31/18 19:12 [place] Cells Not Reportable 12/31/18 19:12 Bite Cells Not Reportable 12/31/18 19:12 Crenated Cell Not Reportable 12/31/18 19:12 Elliptocytes Not Reportable 12/31/18 19:12 Acanthocytes (Spur) Not Reportable 12/31/18 19:12 Rouleaux Not Reportable 12/31/18 19:12 Hemoglobin C Crystals Not Reportable 12/31/18 19:12 Schistocytes Not Reportable 12/31/18 19:12 Malaria parasites Not Reportable 12/31/18 19:12 [place] Bodies Not Reportable 12/31/18 19:12 Hem Pathologist Commnt No 12/31/18 19:12 Sodium 139 mmol/L (137-145) D 01/04/19 08:21 Potassium 4.0 mmol/L (3.6-5.0) D 01/04/19 08:21 Chloride 105.7 mmol/L (98-107) 01/04/19 08:21 Carbon Dioxide 24 mmol/L (22-30) 01/04/19 08:21 Anion Gap 13 mmol/L 01/04/19 08:21 BUN 11 mg/dL (9-20) 01/04/19 08:21 Creatinine 0.3 mg/dL (0.8-1.5) L 01/04/19 08:21 Estimated GFR > 60 ml/min 01/04/19 08:21 BUN/Creatinine Ratio 37 % 01/04/19 08:21 Glucose 110 mg/dL (75-100) H 01/04/19 08:21 POC Glucose 109 (70-105) H 01/05/19 06:01 Lactic Acid 1.40 mmol/L (0.7-2.0) 12/31/18 21:38 Calcium 7.8 mg/dL (8.4-10.2) L 01/04/19 08:21 Total Bilirubin 0.60 mg/dL (0.1-1.2) 12/31/18 19:12 AST 16 units/L (5-40) 12/31/18 19:12 ALT 14 units/L (7-56) 12/31/18 19:12 Alkaline Phosphatase 62 units/L (35-129) 12/31/18 19:12 Ammonia 66.0 umol/L (25-60) H 12/31/18 19:12 Total Creatine Kinase 38 units/L (55-170) L 12/31/18 19:12 Troponin T 0.041 ng/mL (0.00-0.029) H D 01/01/19 00:22 Total Protein 5.9 g/dL (6.3-8.2) L 12/31/18 19:12 Albumin 2.8 g/dL (3.9-5) L 12/31/18 19:12 Albumin/Globulin Ratio 0.9 % 12/31/18 19:12 Triglycerides 89 mg/dL (2-149) 12/31/18 19: Cholesterol 76 mg/dL (50-199) 12/31/18 19: LDL Cholesterol Direct 39 mg/dL (50-130) L 12/31/18: HDL Cholesterol 29 mg/dL (40-59) L 12/31/18: Cholesterol/HDL Ratio 2.62 % 12/31/18 19: TSH 1.030 mlU/mL (0.270-4.200) 12/31/18 19:12 Urine Color Mar[place] (Yellow) 12/31/18 19:00 Urine Turbidity Turbid (Clear) 12/31/18 19: Urine pH 8.0 (5.0-7.0) H 12/31/18 19:00 Ur Specific [place] 1.010 (1.003-1.030) 12/31/18 19:00 Urine Protein 100 mg/dl mg/dL (Negative) 12/31/18 19:00 Urine Glucose (UA) Neg mg/dL (Negative) 12/31/18 19:00 Urine Ketones Neg mg/dL (Negative) 12/31/18 19: Urine Blood Neg (Negative) 12/31/18 19: Urine Nitrite Neg (Negative) 12/31/18 19: Urine Bilirubin Neg (Negative) 12/31/18 19: Urine Urobilinogen < 2.0 mg/dL (<2.0) 12/31/18 19: Ur Leukocyte Esterase Lg (Negative) 12/31/18 19:00 Urine WBC (Auto) > 182.0 /HPF (0.0-6.0) H 12/31/18 19:00 Urine RBC (Auto) 67.0 /HPF (0.0-6.0) 12/31/18 19:00 Urine Bacteria (Auto) 4+ /HPF (Negative) 12/31/18 19:00 Urine Mucus 2+ /HPF 12/31/18 19:00 Plasma/Serum Alcohol < 0.01 % (0-0.07) 12/31/18 19:12 Active Medications - Current Medications Current Medications: Generic Name Dose Route Start Last Admin Trade Name Freq PRN Reason Stop Dose Admin Acetaminophen 650 mg 01/01/19 00:35 Tylenol PO Q4H PRN Pain MILD(1-3)/Fever >100.5/WELLER Albuterol 2.5 mg 01/01/19 01:56 Proventil IH Q4HRT PRN Shortness Of Breath Lipase/Protease/Amylase 1 each 01/01/19 14:22 Pancreaze 10,500 Unit FEEDTUBE PRN PRN For Clogged Feeding Tube Dextrose 50 ml 01/01/19 01:09 D50w (25gm) Syringe IV PRN PRN Hypoglycemia Famotidine 20 mg 01/02/19 10:00 01/05/19 10:08 Pepcid PO 20 mg BID SHIRA Administration Heparin Sodium (Porcine) 5,000 unit 01/01/19 06:00 01/05/19 05:52 Heparin SUB-Q 5,000 unit Q8HR SHIRA Administration Cefepime HCl 1 gm in 100 mls @ 200 mls/hr 01/03/19 04:00 01/05/19 03:30 Maxipime/Ns 1 Gm/100 Ml IV 200 mls/hr Q8H SHIRA Administration Protocol Vancomycin HCl 1 gm in 250 mls @ 125 mls/hr 01/04/19 16:00 01/05/19 04:32 Vancomycin/Ns 1 Gm/250 Ml IV 125 mls/hr Q12H SHIRA Administration Insulin Human Lispro 0 unit 01/01/19 06:00 01/05/19 06:00 Humalog SUB-Q Not Given Q6HR SHIRA Protocol Ondansetron HCl 4 mg 01/01/19 00:35 Zofran IV Q8H PRN Nausea And Vomiting Simple Syrup 15 ml 01/01/19 14:22 Simple Syrup FEEDTUBE PRN PRN Hypoglycemia Simple Syrup 30 ml 01/01/19 14:22 Simple Syrup FEEDTUBE PRN PRN Hypoglycemia Sodium Bicarbonate 325 mg 01/01/19 14:22 Sodium Bicarbonate FEEDTUBE PRN PRN For Clogged Feeding Tube Sodium Chloride 10 ml 01/01/19 10:00 01/05/19 10:09 Sodium Chloride Flush Syringe 10 Ml IV 10 ml BID SHIRA Administration Sodium Chloride 10 ml 01/01/19 00:35 Sodium Chloride Flush Syringe 10 Ml IV PRN PRN LINE FLUSH Nutrition/Malnutrition Assess - Dietary Evaluation Nutrition/Malnutrition Findings: Nutrition Notes Start: 01/01/19 14:04 Freq: Status: Active Protocol: Document 01/05/19 09:56 SA (Rec: 01/05/19 10:00 [id number]) Co-Sign 01/05/19 09:56 LP Nutrition Notes Initial or Follow up Reassessment Current Diagnosis Acute Kidney Injury,COPD, Diabetes,Hypertension Other Pertinent Diagnosis L elbow wound, Hx CVA,Aphasia, Septic, Metabolic encephalopathy, PEG Current Diet Glucerna 1.2 at 70 ml/hr Labs/Tests Glu: 110 Ca: 7.8 Pertinent Medications Reviewed Height 6 ft Weight 51.71 kg [place] Body Weight (kg) 80.90 BMI 15.4 Subjective/Other Information TF running at 70 ml/hr in room . Pt tolerating TF. Pt does not appear to have BMI of 15.5 . Pt unable to answer questions at this time. Percent of energy/protein needs met: 100%/100% Burn Absent Trauma Absent #1 Nutrition Diagnosis Inadequate oral intake As Evidenced by Signs and Symptoms pt meeting 100% of kcal and pro needs via TF Diagnosis Progress(for reassessment Improved documentation) Is patient on ventilator? No Is Patient Ambulatory and/or Out of Bed No REE-([facility]-confined to bed) 1643.256 Kcal/Kg value to use for calculation 38 Approximate Energy Requirements Using 1965 kcal/Kg Calculation Used for Recommendations Kcal/kg Additional Notes Protein Needs: 62-78g (1.2-1. 5g/kg) Fluid Needs: 1 ml/kcal Nutrition Intervention Nutrition Support: Glucerna 1.2 at 70 ml/hr. Water flush of 150 mls q 4 hrs until hypernatremia resolves. Water flush of 100 mls q 4 hrs once hypernaremia resolves. Kcal 2,016 Protein (gm) 101 Fluid (mL) 1,352 Goal #1 TF tolerance Goal #2 Continue to meet at least 75% of calorie and protein needs via TF Anticipated Discharge Needs: Glucerna 1.2 Follow-Up By: 01/12/19 Additional Comments F/U: TF tolerance
[2019-01-06] MEDS: HumaLOG SUB-Q SCH ×3 (01:50→12:47)
[2019-01-06] MEDS: MAXIPIME/NS 1 GM/100 ML 1 GM/100 ML BAG IV SCH ×2 (05:55→12:50)
[2019-01-06] MEDS: VANCOMYCIN/NS 1 GM/250 ML 1 GM/250 ML BAG IV SCH (05:56)
[2019-01-06] MEDS: HEPARIN SUB-Q SCH (05:57)
--- NOTE | 2019-01-06 09:39 | Discharge Summary ---
Providers - Providers Date of Admission: 01/01/19 00:35 Attending physician: DEENA LAND MD 01/01/19 01:21 Consult to Dietitian/Nutrition [CONS] Routine Physician Instructions: Reason For Exam: Reason for Consult: Malnutrition 01/01/19 11:13 Consult to Physician [CONS] Routine Comment: Consulting Provider: JOCELIN STARR Physician Instructions: I contacted Reason For Exam: sepsis shock w/ uti, chronic slade,on vasopressors Primary care physician: [employer] Hospitalization Condition: Serious Hospital course: 58m who was sent from half-way. The patient has a history of CVA with significant residual deficits including aphasia, dysphagia status post PEG, functional quadriplegia, COPD, diabetes, hypertension, chronic indwelling Slade catheter. He was sent to the hospital for altered mental status. He was also found to have hypotension. The patient was found to have sepsis secondary to UTI and gram-positive bacteremia, which was, and intermediate Staphylococcus aureus. He has been weaned off IV pressors. He completed abx during his hospital stay. Leak in troponin was most likely due to demand ischemia, medical management was given The patient had acute kidney injury due to vasomotor nephropathy, he received IV fluids after which he improved -He was treated with insulin for diabetes. 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 Severe protein calorie malnutrition Hypokalemia Chronic dysphagia History of obstructive uropathy status post Slade Disposition: [id number]/[id number] [facility] CERT Time spent for discharge: 33 mins Core Measure Documentation - Palliative Care Palliative Care/ Comfort Measures: Not Applicable - Core Measures Any of the following diagnoses?: none Exam - Physical Exam Narrative exam: General.: Appears well, no distress, nontoxic HEENT: Moist mucous membranes, extraocular muscles intact, no lymphadenopathy Neck: supple Cardiac: S1-S2 heard Lungs: clear to auscultation bilaterally Abdomen: soft , nontender, nondistended, bowel sounds positive Extremities: no edema clubbing or cyanosis Skin: no rash or lesions Neurologic: Patient opens eyes, nonverbal, aphasic, doesn't obey the commands, does not move the left side Psych: calm, - Constitutional Vitals: Temp Pulse Resp BP Pulse Ox 98.7 F 84 24 99/71 93 01/06/19 05:23 01/06/19 05:23 01/06/19 05:23 01/06/19 05:23 01/06/19 07:54 Plan Follow up with: PRIMARY CARE, [Primary Care Provider] - 3-5 Days Prescriptions: PANTOPRAZOLE SODIUM (nf) [Protonix GRANULES] 40 mg PO DAILY 30 Days
[2019-01-06] MEDS: PEPCID PO SCH (09:59)
[2019-01-06] MEDS: SODIUM CHLORIDE FLUSH SYRINGE 10 ML IV SCH (09:59)
--- NOTE | 2019-01-06 10:30 | Progress Note ---
Assessment and Plan Cultures: Previous cultures reviewed. 12/31/2018 urine culture: Mixed jennifer on 12/31/2018 blood: CoNS, 3 out of 4 bottles 01/02/2019 blood: no growth in 48 hours A/P: 58-year-old male with hypertension, diabetes, COPD, CVA with aphasia and right- sided hemiparesis, contractures, dysphagia status post PEG tube placement, indwelling Slade catheter, recent hospitalization in October 2018 with respiratory culture positive for VISA (vancomycin intermediate Staphylococcus aureus) admitted with: 1) Septic shock: Shock resolved. Etiology unclear, likely UTI, also CoNS bacteremia. 2) CoNS bacteremia: 3 out of 4 bottles. patient with history of VISA (vancomycin intermediate Staphylococcus aureus) in October 2018. Limited study, no valvular vegetation. Repeat cultures show no growth in 48 hours. Last dose of Vancomycin and Cefepime 01/06/19. 3) CAUTI: Slade was exchanged in ER. Mixed growth on cultures. 4) Acute encephalopathy: seems back to baseline. 5) Leukopenia: unknown etiology. Recs: Continue contact precautions Continue Cefepime 1 gm IV every 8 hours, last dose today Continue Vancomycin 1 gm IV every 12 hours, last dose today Clinically stable, ID is signing off [employer] M: [phone] O:[phone] Subjective Date of service: 01/06/19 Interval history: Patient seen and examined. Nonverbal communication. No acute distress observed. No family at bedside. Objective - Exam Narrative Exam: Constitutional:Awake, doesn't follow commands, aphasic Head, Ears, Nose: Normocephalic, atraumatic. External ears, nose normal Eyes: Conjunctivae/corneas clear. No icterus. No ptosis. Neck: Supple, no meningeal signs Oral: unable to examine Cardiovascular: S1, S2 normal. Respiratory: Good air entry, clear to auscultation bilaterally GI: Soft, non-tender; bowel sounds normal. No peritoneal signs. G tube +. Indwelling slade Musculoskeletal: No pedal edema, no cyanosis. Contractures. Right femoral central line. Skin: No rash or abscess Hem/Lymphatic: No palpable cervical or supraclavicular nodes. No lymphangitis Psych: no agitation Neurological: awake, aphasic. - Constitutional Vitals: Vital Signs Temp Pulse Resp BP Pulse Ox 98.7 F 84 24 99/71 93 01/06/19 05:23 01/06/19 05:23 01/06/19 05:23 01/06/19 05:23 01/06/19 07:54 Temperature -Last 24 Hours Temperature 98.7 F Temperature 97.9 F Temperature 98.6 F Temperature 97.3 F - Labs CBC & Chem 7: 01/04/19 09:11 01/04/19 08:21 Labs: Abnormal lab results 01/05/19 01/05/19 01/06/19 Range/Units 12:26 17:59 06:18 POC Glucose 124 H 113 H 120 H (70-105)
[2019-01-06 12:02] VITALS: BP 116/70
== END 2019-01-06 13:50 | DRG 871 ==
LOC: ED 18:20 → CC1 01-01 00:35 → 4A 01-02 02:23 → 3A 01-05 14:39
PROVIDERS: ADMIT Internal Medicine; ATTEND Internal Medicine
PROC: 06HY33Z Insertion of Infusion Device into Lower Vein, Percutaneous Approach (ICD-10-PCS; principal; 2018-12-31)
PROC: B54BZZA Ultrasonography of Right Lower Extremity Veins, Guidance (ICD-10-PCS; 2018-12-31)
DX: A41.1 Sepsis due to other specified staphylococcus (principal); R65.21 Severe sepsis with septic shock; G93.41 Metabolic encephalopathy; N17.0 Acute kidney failure with tubular necrosis; E43 Unspecified severe protein-calorie malnutrition; R53.2 Functional quadriplegia; I21.A1 Myocardial infarction type 2; N39.0 Urinary tract infection, site not specified; E87.2 Acidosis; Z68.1 Body mass index [BMI] 19.9 or less, adult; I69.354 Hemiplegia and hemiparesis following cerebral infarction affecting left non-dominant side; J44.9 Chronic obstructive pulmonary disease, unspecified; I10 Essential (primary) hypertension; R13.10 Dysphagia, unspecified; E11.65 Type 2 diabetes mellitus with hyperglycemia; E87.6 Hypokalemia; Z79.82 Long term (current) use of aspirin; Z79.899 Other long term (current) drug therapy; Z93.1 Gastrostomy status; Z79.84 Long term (current) use of oral hypoglycemic drugs
CPT/HCPCS: 36415; 70450; 71045; 80048; 80053; 80061; 80320; 81001; 82140; 82550; 82962; 84443; 84484; 85007; 85025; 85027; 87040; 87076; 87086; 87186; 93005; 93010; 93308; 93321; 93325; 94760; G0378; G0480; J0692; J0696; J1644; J1815; J1956; J2020; J2543; J3370; J7030

== ENCOUNTER 2019-04-01 09:20 | Inpatient (IN) | payer MEDICARE ==
[2019-04-01] MEDS ORDERED: NACL 0.9% 500 ML 500 ML IV ONE (09:47)
[2019-04-01] MEDS ORDERED: TYLENOL PR ONE ×2 (09:58→10:06)
[2019-04-01 10:17] LABS: Hematocrit 41.3 % (35.5-45.6); Hemoglobin 13.9 gm/dl (11.8-15.2); Mean Corpuscular HGB Conc 34 % (32-34); Mean Corpuscular Volume 91 fl (84-94); Platelet Count 104 K/mm3 (140-440); Red Blood Count 4.55 M/mm3 (3.65-5.03); Red Cell Distribution Width 14.1 % (13.2-15.2)
[2019-04-01 10:28] LABS: INR 1.05 (0.87-1.13)
--- NOTE | 2019-04-01 10:29 | XRay Report ---
CHEST 1 VIEW INDICATION: Sepsis. Altered mental status COMPARISON: AP chest report dated 12/31/2018 FINDINGS: Support devices: None. Heart: Within normal limits. Lungs/Pleura: No acute air space or interstitial disease. Additional findings: None. IMPRESSION: No acute findings. Signer Name: Ty Osborne Jr, MD Signed: 04/01/2019 10:25 AM Workstation Name: [id number]
[2019-04-01] MEDS ORDERED: TYLENOL FEEDTUBE ONE (10:33)
[2019-04-01] MEDS ORDERED: ROCEPHIN/NS 1 GM/50 ML 1 GM/50 ML BAG IV ONE (10:33)
[2019-04-01] MEDS ORDERED: NACL 0.9% 1000 ML 1,000 ML IV ONE ×3 (10:35→13:01)
--- NOTE | 2019-04-01 11:00 | Emergency Department Report ---
ED Fever HPI - General Chief Complaint: Altered Mental Status Stated Complaint: AMS Time Seen by Provider: 04/01/19 10:18 Source: patient, EMS, senior care records Exam Limitations: clinical condition, physical impairment - History of Present Illness Initial Comments: 58-year-old male with a past medical history of CVA with residual deficits, seizures, diabetes, hypertension, previous alcohol dependence, previous renal failure, and COPD presents to the Hospital from her [facility] head senior care with fever and alteration in mental status. Baseline mental status is unknown at this time. They report that patient was last normal at 8:40 AM. Patient presents with a fever 103.5. He has chronic aphasia, right-sided weakness, PEG tube placement, and Slade to upon arrival. He is unable to give any significant HPI. ED Review of Systems ROS: Stated complaint: AMS Other details as noted in HPI Comment: Unobtainable due to pts medical conditions ED Past Medical Hx - Past Medical History Hx Hypertension: Yes Hx CVA: Yes Hx Congestive Heart Failure: No (unknown) Hx Diabetes: Yes Hx Renal Disease: No (BETHEL, resolved) Hx Asthma: No (unknown) Hx COPD: Yes Hx HIV: No - Surgical History Additional Surgical History: bree - Social History Smoking Status: Unknown if ever smoked - Medications Home Medications: Home Medications Medication Instructions Recorded Confirmed Last Taken Type AtorvaSTATin [Lipitor] 40 mg FEEDTUBE QHS 06/21/16 11/11/18 06/20/16 History Ascorbic Acid [Vitamin C] 500 mg FEEDTUBE QDAY 07/14/18 11/11/18 Unknown History Aspirin [Adult Aspirin Regimen] 81 mg FEEDTUBE DAILY 07/14/18 11/11/18 Unknown History Ipratropium/Albuterol Sulfate 1 ampul IH Q6HR 07/14/18 11/11/18 Unknown History [DUONEB *Not for PRN Use*] Multivitamin [Multiple Vitamins] 1 each FEEDTUBE DAILY 07/14/18 11/11/18 Unknown History Protein Supplement [Promod] 30 ml FEEDTUBE Q8H 07/14/18 11/11/18 Unknown History Acetaminophen [Acetaminophen TAB] 650 mg FEEDTUBE Q4HR PRN 11/11/18 11/11/18 Unknown History Gabapentin [Neurontin] 300 mg FEEDTUBE BID 11/11/18 11/11/18 Unknown History L. Acidophilus/L.bulgaricus 1 each FEEDTUBE QAM 11/11/18 11/11/18 Unknown History [Lactobacillus Tablet] guaiFENesin DM [Robitussin Dm] 10 ml FEEDTUBE Q6HR PRN 11/11/18 11/11/18 Unknown History PANTOPRAZOLE SODIUM (nf) [Protonix 40 mg PO DAILY 30 Days granpkt. 01/06/19 Unknown Rx GRANULES] ED Physical Exam - General Limitations: Altered Mental Status - Other Other exam information: General: Lethargic but arousable Head exam: Atraumatic, normocephalic Eyes exam: Normal appearance, pupils equal reactive to light, extraocular movements intact ENT: Dry mucous membranes Neck exam: Normal inspection, full passive range of motion movement without rigidity Respiratory exam: Clear to auscultation bilateral, mild tachypnea Cardiovascular: Mild tachycardia regular rhythm Abdomen: Soft, suprapubic distention mild tenderness, with normal bowel sounds, no rebound, or guarding, positive PEG tube : hypospadias, slade with urine leaking from urethral meatus and empty Slade bag Extremity: Right arm and hand contracted Back: Sacral decubitus Neurologic: Lethargic, opens eyes to stimulation, significant aphasia, grimaces to pain, right arm and right leg without any movement spontaneous movement. Left side arm and leg strengths 2/5 Skin: Stage I sacral decubitus ulcer spontaneous movement. ED Course Vital Signs 04/01/19 04/01/19 04/01/19 09:33 09:36 09:45 Temperature 103.5 F H Pulse Rate 120 H 118 H 116 H Respiratory 18 30 H 29 H Rate Blood Pressure 96/64 Blood Pressure 97/60 [Left] O2 Sat by Pulse 93 89 Oximetry 04/01/19 04/01/19 04/01/19 10:00 10:15 10:30 Temperature Pulse Rate 113 H 108 H 110 H Respiratory 29 H 22 27 H Rate Blood Pressure 102/69 107/65 106/66 Blood Pressure [Left] O2 Sat by Pulse 95 92 95 Oximetry 04/01/19 04/01/19 04/01/19 10:45 11:00 11:13 Temperature Pulse Rate 110 H 107 H Respiratory 29 H 26 H 18 Rate Blood Pressure 93/65 94/60 Blood Pressure [Left] O2 Sat by Pulse 97 93 94 Oximetry 04/01/19 04/01/1919 11:15 11:30 11:45 Temperature Pulse Rate 109 H 106 H 103 H Respiratory 24 27 H 23 Rate Blood Pressure 95/58 94/63 93/61 Blood Pressure [Left] O2 Sat by Pulse 93 Oximetry 04/01/19 04/01/19 04/01/19 12:00 12:21 12:30 Temperature Pulse Rate 98 H 93 H 95 H Respiratory 24 20 21 Rate Blood Pressure 99/59 95/58 89/54 Blood Pressure [Left] O2 Sat by Pulse 95 95 Oximetry 04/01/19 04/01/19 04/01/19 12:45 13:01 13:15 Temperature Pulse Rate 98 H 94 H 90 Respiratory 21 21 22 Rate Blood Pressure 88/54 87/52 92/53 Blood Pressure [Left] O2 Sat by Pulse 96 96 100 Oximetry 04/01/19 13:30 Temperature Pulse Rate 89 Respiratory 20 Rate Blood Pressure 95/58 Blood Pressure [Left] O2 Sat by Pulse 97 Oximetry - Reevaluation(s) Reevaluation #1: 04/01/19 13:01 sbp dropped to 80's at this time additional 2 liters of NS ordered. ED Medical Decision Making - Lab Data Result diagrams: 04/01/19 10:11 04/01/19 10:11 - EKG Data -: EKG Interpreted by Me EKG shows normal: sinus rhythm, axis (qrs -25), QRS complexes (qrsd 95), ST-T waves (no stemi) Rate: tachycardia (108) - Radiology Data Radiology results: report reviewed CHEST 1 VIEW INDICATION: Sepsis. Altered mental status COMPARISON: AP chest report dated 12/31/2018 FINDINGS: Support devices: None. Heart: Within normal limits. Lungs/Pleura: No acute air space or interstitial disease. Additional findings: None. IMPRESSION: No acute findings. CT head non-contrast: There is persistent excessive microvascular angiopathic as described finding section. No CT evidence of acute intracranial hemorrhage continued prominence of the ventricular system - Differential Diagnosis sespsis, uti, pneumonia Critical care attestation.: If time is entered above; I have spent that time in minutes in the direct care of this critically ill patient, excluding procedure time. ED Disposition Clinical Impression: UTI (urinary tract infection), Sepsis, Debility, Altered mental status, Dehydration, Acute renal insufficiency Disposition: -09 OP ADMIT IP TO THIS HOSP Is pt being admited?: Yes Condition: Stable Time of Disposition: 12:37 (DR best)
[2019-04-01 11:05] LABS: Albumin 2.8 g/dL (3.9-5); Calcium 8.7 mg/dL (8.4-10.2)
[2019-04-01 12:10] LABS: Bacteria,Urine 4+ /HPF (Negative); Bilirubin,Urine NEG (Negative); Blood,Urine MOD (Negative); Color,Urine Amber (Yellow); Mucus,Urine 3+ /HPF; Urobilinogen,Urine < 2.0 mg/dL (<2.0)
[2019-04-01 12:15] LABS: Total Cells Counted 100
[2019-04-01 12:16] LABS: Band Neutrophils # (Manual) 1.1 K/mm3; Basophils % (Manual) 0 % (0.0-1.8); Eosinophils % (Manual) 0 % (0.0-4.3); RBC Morphology Normal
[2019-04-01 12:17] LABS: Platelet Estimate Consistent w Auto
--- NOTE | 2019-04-01 13:20 | History and Physical Report ---
History of Present Illness Chief complaint: confused History of present illness: 58 YO Male Long-Term Resident from [facility] with HTN, DM, COPD, CVA with LHP, Contracture, and Dysphagia S/P G tube placement, DM, COPD, Debility presents to ED for evaluation. Pt is lethargic and unable to provide history. Pt history taken from [facility] staff. As per [facility] staff, the patient was found to have worsening confusion as well as fever to 103.5 today. EMS notified and upon arrival the patient was found to be in distress. Pt transported to [facility] for further care and evaluation. Pt seen and evaluated in ED and found to have Sepsis secondary to UTI, Acute Renal Failure, Acute Encephalopathy.Pt also experienced hypotension in ED with SBP in the 60's. Pt admitted to IMCU and initiated on sepsis protocol. Pt initiated on IV antibiotic therapy. Pt treated with supportive care with improvement in SBP. No reports of chills, CP, Palpitations, Trauma, BRBPR, productive cough, skin rash or recent ill contacts. Prior admission on 01/01/19 reviewed. All listed medication reconciled at time of admission. Past History Past Medical History: COPD, diabetes, hypertension, stroke, other (debility, contracture, dysphagia) Past Surgical History: Other (PEG placement) Social history: single. denies: smoking, alcohol abuse, prescription drug abuse Family history: diabetes, hypertension Medications and Allergies Allergies Allergy/AdvReac Type Severity Reaction Status Date / Time No Known Allergies Allergy Verified 02/27/15 00:48 Home Medications Medication Instructions Recorded Confirmed Last Taken Type AtorvaSTATin [Lipitor] 40 mg FEEDTUBE QHS 06/21/16 11/11/18 06/20/16 History Ascorbic Acid [Vitamin C] 500 mg FEEDTUBE QDAY 07/14/18 11/11/18 Unknown History Aspirin [Adult Aspirin Regimen] 81 mg FEEDTUBE DAILY 07/14/18 11/11/18 Unknown History Ipratropium/Albuterol Sulfate 1 ampul IH Q6HR 07/14/18 11/11/18 Unknown History [DUONEB *Not for PRN Use*] Multivitamin [Multiple Vitamins] 1 each FEEDTUBE DAILY 07/14/18 11/11/18 Unknown History Protein Supplement [Promod] 30 ml FEEDTUBE Q8H 07/14/18 11/11/18 Unknown History Acetaminophen [Acetaminophen TAB] 650 mg FEEDTUBE Q4HR PRN 11/11/18 11/11/18 Unknown History Gabapentin [Neurontin] 300 mg FEEDTUBE BID 11/11/18 11/11/18 Unknown History L. Acidophilus/L.bulgaricus 1 each FEEDTUBE QAM 11/11/18 11/11/18 Unknown History [Lactobacillus Tablet] guaiFENesin DM [Robitussin Dm] 10 ml FEEDTUBE Q6HR PRN 11/11/18 11/11/18 Unknown History PANTOPRAZOLE SODIUM (nf) [Protonix 40 mg PO DAILY 30 Days granherrera. 01/06/19 Unknown Rx GRANULES] Active Meds: Active Medications Sodium Chloride (Nacl 0.9% 1000 Ml) 1,000 mls @ 999 mls/hr IV BOLUS ONE Stop: 04/01/19 14:00 Last Admin: 04/01/19 13:10 Dose: 999 mls/hr Documented by: Sodium Chloride (Nacl 0.9% 1000 Ml) 1,000 mls @ 999 mls/hr IV BOLUS ONE Stop: 04/01/19 14:01 Review of Systems ROS unobtainable: due to mental status Exam - Constitutional Vitals: Temp Pulse Resp BP Pulse Ox 103.5 F H 107 H 18 94/60 94 04/01/19 09:36 04/01/19 11:00 04/01/19 11:13 04/01/19 11:00 04/01/19 11:13 General appearance: Present: mild distress - EENT Eyes: Present: miosis - Neck Neck: Present: supple, normal ROM - Respiratory Respiratory effort: normal Respiratory: bilateral: CTA - Cardiovascular Heart Sounds: Present: S1 & S2. Absent: rub, click - Extremities Extremities: no ischemia, abnormal (contracture) Peripheral Pulses: within normal limits - Abdominal General gastrointestinal: Present: soft, non-tender, non-distended, normal bowel sounds Male genitourinary: Present: normal - Integumentary Integumentary: Present: clear, dry, clammy, decreased turgor - Musculoskeletal Musculoskeletal: generalized weakness - Psychiatric Psychiatric: no appropriate mood/affect, no intact judgment & insight, no memory intact - Neurologic Neurologic: moves all extremities, no gait normal Results - Labs CBC & Chem 7: 04/01/19 10:11 04/01/19 10:11 Labs: Abnormal lab results 04/01/19 04/01/19 04/01/19 Range/Units 09:36 10:11 10:11 Plt Count 104 L (140-440) K/mm3 Seg Neuts % (Manual) 86.0 H (40.0-70.0) % Lymphocytes % (Manual) 0 L (13.4-35.0) % Seg Neutrophils # Man 9.0 H (1.8-7.7) K/mm3 Lymphocytes # (Manual) 0.0 L (1.2-5.4) K/mm3 VBG pH (7.320-7.420) BUN 75 H (9-20) mg/dL Creatinine 1.8 H (0.8-1.5) mg/dL Glucose 204 H (75-100) mg/dL POC Glucose 227 H (70-105) Albumin 2.8 L (3.9-5) g/dL Urine WBC (Auto) (0.0-6.0) /HPF 04/01/19 04/01/19 Range/Units 10:11 11:41 Plt Count (140-440) K/mm3 Seg Neuts % (Manual) (40.0-70.0) % Lymphocytes % (Manual) (13.4-35.0) % Seg Neutrophils # Man (1.8-7.7) K/mm3 Lymphocytes # (Manual) (1.2-5.4) K/mm3 VBG pH 7.422 H (7.320-7.420) BUN (9-20) mg/dL Creatinine (0.8-1.5) mg/dL Glucose (75-100) mg/dL POC Glucose (70-105) Albumin (3.9-5) g/dL Urine WBC (Auto) 174.0 H (0.0-6.0) /HPF Assessment and Plan - Patient Problems (1) Sepsis Current Visit: Yes Status: Acute Qualifiers: Sepsis type: sepsis due to unspecified organism Plan to address problem: Sepsis protocol: Admit to IMCU, IV antibiotic therapy, serial lactic acid, CBC, CMP, monitor uop q shift, urinalysis,chest x ray, blood cultures The high probability of a clinically significant, sudden or life threatening deterioration of the [Cardia, renal, neuro] system(s) required my full and direct attention, intervention and personal management. The aggregate critical care time was [65] minutes. This time is in addition to time spent performing reported procedures but includes the following: [x] Data Review and interpretation [x] Patient assessment and monitoring of vital signs [x] Documentation [x] Medication orders and management (2) Encephalopathy Current Visit: Yes Status: Acute Plan to address problem: CT head, Neuro check, supportive care, IVF resuscitation therapy. (3) UTI (urinary tract infection) Current Visit: Yes Status: Acute Qualifiers: Encounter type: initial encounter Plan to address problem: IV antibiotic therapy, urinalysis, CBC, CMP, IVF resuscitation therapy (4) ARF (acute renal failure) with tubular necrosis Current Visit: No Status: Acute Plan to address problem: IVF resuscitation therapy, (5) HTN (hypertension) Current Visit: Yes Status: Acute Qualifiers: Hypertension type: essential hypertension Qualified Code(s): I10 - Essential (primary) hypertension Plan to address problem: Monitor BP q shift, Pt hypotensive in ED, IVF resuscitation therapy. (6) Diabetes Current Visit: Yes Status: Acute Plan to address problem: ADA diet, insulin, accu check, hypoglycemia protocol (7) DVT prophylaxis Current Visit: Yes Status: Acute Plan to address problem: SCD to BLE while in bed, prophylactic heparin
[2019-04-01] MEDS ORDERED: NACL 0.9% 1000 ML IV ONE (13:23)
[2019-04-01] MEDS ORDERED: PROVENTIL IH PRN (13:23)
[2019-04-01] MEDS ORDERED: SODIUM CHLORIDE FLUSH SYRINGE 10 ML IV PRN (13:23)
[2019-04-01] MEDS ORDERED: VANCOMYCIN 1,750 MG in NACL 0.9% 500 ML 500 ML IV ONE (14:00)
[2019-04-01] MEDS ORDERED: VANCOMYCIN PHARMACY TO DOSE IV SCH (14:00)
[2019-04-01] MEDS ORDERED: NACL 0.9% 1000 ML 2,000 ML ONE (14:45)
[2019-04-01] MEDS ORDERED: NACL 0.9% 1000 ML 1,000 ML IV SCH (21:00)
[2019-04-01] MEDS: HEPARIN SUB-Q SCH (22:50)
[2019-04-01] MEDS: MAXIPIME/NS 2 GM/100 ML 2 GM/100 ML BAG IV SCH (22:50)
[2019-04-01] MEDS: SODIUM CHLORIDE FLUSH SYRINGE 10 ML IV SCH (22:51)
[2019-04-02] MEDS: HEPARIN SUB-Q SCH (11:10)
[2019-04-02] MEDS: MAXIPIME/NS 2 GM/100 ML 2 GM/100 ML BAG IV SCH ×2 (11:10→21:19)
[2019-04-02 11:11] LABS: BUN/Creatinine Ratio 57; Blood Urea Nitrogen 34 mg/dL (9-20); Calcium 8.4 mg/dL (8.4-10.2); Hemolysis Index 4
[2019-04-02] MEDS ORDERED: VANCOMYCIN 1,250 MG in NACL 0.9% 250ML 250 ML IV SCH (15:00)
[2019-04-02] MEDS ORDERED: VANCOMYCIN PHARMACY TO DOSE IV SCH (16:00)
--- NOTE | 2019-04-02 16:37 | Progress Note ---
Assessment and Plan Assessment and plan: 58-year-old man with history of CVA with residual deficits, seizure, diabetes, hypertension and history of alcohol abuse in the past, not currently drinking, h Patient has chronic aphasia, right-sided weakness, status post PEG and [place]. [facility] for fever and altered mental status Past medical history; hypertension, CVA, diabetes, history of alcohol abuse in the past, COPD, with indwelling [place] status post PEG due to dysphasia Sepsis/septic shock UTI Continue antibiotics, follow up urine and blood cultures -Urine currently growing gram-negative rods, blood growing gram-positive cocci in clusters, ID consult -Patient was initially hypotensive but responded to IV fluids, did not require pressors Acute kidney injury due to vasomotor nephropathy Continue IV fluids, now resolved Chronic indwelling [place] Did not remove Acute metabolic encephalopathy Improving, follow-up CT head Hypernatremia/dehydration Change IV fluids to D5 water DVT prophylaxis with Lovenox Critical care time 35 minutes History Interval history: Review of systems Constitutional: No fevers, no malaise, no joint pains CVS: No chest pain, no orthopnea, no dyspnea on exertion, no pedal edema GI: No abdominal pain, no diarrhea, no vomiting, no constipation Respiratory: no wheezing, no coughing Hospitalist Physical - Physical exam Narrative exam: General.: Appears well, no distress, nontoxic HEENT: Moist mucous membranes, extraocular muscles intact, no lymphadenopathy Neck: supple Cardiac: S1-S2 heard Lungs: clear to auscultation bilaterally Abdomen: soft , nontender, nondistended, bowel sounds positive Extremities: no edema clubbing or cyanosis Skin: no rash or lesions Neurologic: Expressive aphasia, right-sided weakness Psych: calm, and cooperative - Constitutional Vitals: Temp Pulse Resp BP Pulse Ox 98.7 F 73 17 120/72 97 04/02/19 12:00 04/02/19 15:00 04/02/19 15:00 04/02/19 15:00 04/02/19 15:00 General appearance: Present: mild distress Results - Labs CBC & Chem 7: 04/01/19 10:11 04/02/19 10:18 Labs: Laboratory Last Values WBC 10.5 K/mm3 (4.5-11.0) 04/01/19 10:11 RBC 4.55 M/mm3 (3.65-5.03) 04/01/19 10:11 Hgb 13.9 gm/dl (11.8-15.2) 04/01/19 10:11 Hct 41.3 % (35.5-45.6) 04/01/19 10:11 MCV 91 fl (84-94) 04/01/19 10:11 MCH 31 pg (28-32) 04/01/19 10:11 MCHC 34 % (32-34) 04/01/19 10:11 RDW 14.1 % (13.2-15.2) 04/01/19 10:11 Plt Count 104 K/mm3 (140-440) L 04/01/19 10:11 Add Manual Diff Complete 04/01/19 10:11 Total Counted 100 04/01/19 10:11 Seg Neuts % (Manual) 86.0 % (40.0-70.0) H 04/01/19 10:11 10.0 % 04/01/19 10:11 0 % (13.4-35.0) L 04/01/19 10:11 Reactive Lymphs % (Man) 0 % 04/01/19 10:11 2.0 % (0.0-7.3) 04/01/19 10:11 0 % (0.0-4.3) 04/01/19 10:11 0 % (0.0-1.8) 04/01/19 10:11 2.0 % 04/01/19 10:11 0 % 04/01/19 10:11 0 % 04/01/19 10:11 0 % 04/01/19 10:11 Nucleated RBC % Not Reportable 04/01/19 10:11 Seg Neutrophils # Man 9.0 K/mm3 (1.8-7.7) H 04/01/19 10:11 Band Neutrophils # 1.1 K/mm3 04/01/19 10:11 0.0 K/mm3 (1.2-5.4) L 04/01/19 10:11 Abs React Lymphs (Man) 0.0 K/mm3 04/01/19 10:11 0.2 K/mm3 (0.0-0.8) 04/01/19 10:11 0.0 K/mm3 (0.0-0.4) 04/01/19 10:11 0.0 K/mm3 (0.0-0.1) 04/01/19 10:11 0.2 K/mm3 04/01/19 10:11 0.0 K/mm3 04/01/19 10:11 0.0 K/mm3 04/01/19 10:11 Blast Cells # 0.0 K/mm3 04/01/19 10:11 WBC Morphology Not Reportable 04/01/19 10:11 Hypersegmented Neuts Not Reportable 04/01/19 10:11 Hyposegmented Neuts Not Reportable 04/01/19 10:11 Hypogranular Neuts Not Reportable 04/01/19 10:11 Not Reportable 04/01/19 10:11 Not Reportable 04/01/19 10:11 Not Reportable 04/01/19 10:11 Not Reportable 04/01/19 10:11 Not Reportable 04/01/19 10:11 Not Reportable 04/01/19 10:11 Consistent w auto 04/01/19 10:11 Not Reportable 04/01/19 10:11 Plt Clumps, EDTA Not Reportable 04/01/19 10:11 Not Reportable 04/01/19 10:11 Not Reportable 04/01/19 10:11 Not Reportable 04/01/19 10:11 Plt Morphology Comment Not Reportable 04/01/19 10:11 RBC Morphology Normal 04/01/19 10:11 Dimorphic RBCs Not Reportable 04/01/19 10:11 Not Reportable 04/01/19 10:11 Not Reportable 04/01/19 10:11 Not Reportable 04/01/19 10:11 Not Reportable 04/01/19 10:11 Not Reportable 04/01/19 10:11 Not Reportable 04/01/19 10:11 Not Reportable 04/01/19 10:11 Not Reportable 04/01/19 10:11 Not Reportable 04/01/19 10:11 Not Reportable 04/01/19 10:11 Not Reportable 04/01/19 10:11 Not Reportable 04/01/19 10:11 Not Reportable 04/01/19 10:11 Not Reportable 04/01/19 10:11 Not Reportable 04/01/19 10:11 Not Reportable 04/01/19 10:11 Not Reportable 04/01/19 10:11 Not Reportable 04/01/19 10:11 Not Reportable 04/01/19 10:11 Acanthocytes (Spur) Not Reportable 04/01/19 10:11 Rouleaux Not Reportable 04/01/19 10:11 Not Reportable 04/01/19 10:11 Not Reportable 04/01/19 10:11 Not Reportable 04/01/19 10:11 Not Reportable 04/01/19 10:11 Hem Pathologist Commnt No 04/01/19 10:11 PT 13.4 Sec. (12.2-14.9) 04/01/19 10:11 INR 1.05 (0.87-1.13) 04/01/19 10:11 VBG pH 7.422 (7.320-7.420) H 04/01/19 10:11 Sodium 150 mmol/L (137-145) H D 04/02/19 10:18 Potassium 3.8 mmol/L (3.6-5.0) D 04/02/19 10:18 Chloride 114.4 mmol/L (98-107) H 04/02/19 10:18 Carbon Dioxide 26 mmol/L (22-30) 04/02/19 10:18 13 mmol/L 04/02/19 10:18 BUN 34 mg/dL (9-20) H 04/02/19 10:18 0.6 mg/dL (0.8-1.5) L D 04/02/19 10:18 Estimated GFR > 60 ml/min 04/02/19 10:18 57 % 04/02/19 10:18 Glucose 85 mg/dL (75-100) 04/02/19 10:18 POC Glucose 227 (70-105) H 04/01/19 09:36 Lactic Acid 1.60 mmol/L (0.7-2.0) 04/01/19 22:12 Calcium 8.4 mg/dL (8.4-10.2) 04/02/19 10:18 0.40 mg/dL (0.1-1.2) 04/01/19 10:11 AST 34 units/L (5-40) 04/01/19 10:11 ALT 52 units/L (7-56) 04/01/19 10:11 71 units/L (35-129) 04/01/19 10:11 6.7 g/dL (6.3-8.2) 04/01/19 10:11 2.8 g/dL (3.9-5) L 04/01/19 10:11 0.7 % 04/01/19 10:11 [place] (Yellow) 04/01/19 11:41 Cloudy (Clear) 04/01/19 11:41 6.0 (5.0-7.0) 04/01/19 11:41 Ur Specific [place] 1.016 (1.003-1.030) 04/01/19 11:41 30 mg/dl mg/dL (Negative) 04/01/19 11:41 Neg mg/dL (Negative) 04/01/19 11:41 Neg mg/dL (Negative) 04/01/19 11:41 Mod (Negative) 04/01/19 11:41 Neg (Negative) 04/01/19 11:41 Neg (Negative) 04/01/19 11:41 < 2.0 mg/dL (<2.0) 04/01/19 11:41 Ur Leukocyte Esterase Lg (Negative) 04/01/19 11:41 174.0 /HPF (0.0-6.0) H 04/01/19 11:41 101.0 /HPF (0.0-6.0) 04/01/19 11:41 4+ /HPF (Negative) 04/01/19 11:41 3+ /HPF 04/01/19 11:41 Active Medications - Current Medications Current Medications: Generic Name Dose Route Start Last Admin Trade Name Freq PRN Reason Stop Dose Admin Albuterol 2.5 mg 04/01/19 13:23 Proventil IH Q3HRT PRN Shortness Of Breath Enoxaparin Sodium 40 mg 04/02/19 22:00 Lovenox SUB-Q QDAY@2200 SHIRA Cefepime HCl 2 gm in 100 mls @ 200 mls/hr 04/01/19 22:00 04/02/19 11:10 Maxipime/Ns 2 Gm/100 Ml IV 200 mls/hr Q12HR SHIRA Administration Protocol Vancomycin HCl 1,500 mg/ 530 mls @ 333.333 mls/hr 04/02/19 16:00 Sodium Chloride IV Q12H SHIRA Dextrose 1,000 mls @ 125 mls/hr 04/02/19 16:00 D5w IV DIRECT SHIRA Sodium Chloride 10 ml 04/01/19 22:00 04/01/19 22:51 Sodium Chloride Flush Syringe 10 Ml IV 10 ml BID SHIRA Administration Sodium Chloride 10 ml 04/01/19 13:23 Sodium Chloride Flush Syringe 10 Ml IV PRN PRN LINE FLUSH Nutrition/Malnutrition Assess - Dietary Evaluation Nutrition/Malnutrition Findings: Nutrition Notes Start: 04/02/19 14:47 Freq: Status: Active Protocol: Document 04/02/19 14:47 HENRIK (Rec: 04/02/19 14:53 [facility] SRW- [email or web address]) Nutrition Notes 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 He is from [place] and has a PEG tube; receives Glucerna 1.5 at 80ml/hr (from [id number]) at [place]. Per records , he receives a pureed diet with thickened liquids as well . Burn Absent Trauma Absent #1 Nutrition Diagnosis Inadequate oral intake Etiology hx of CVA and dysphagia As Evidenced by Signs and Symptoms pt NPO; requires EN support to meet nutrient needs Is patient on ventilator? No Is Patient Ambulatory and/or Out of Bed No REE-([facility]-confined to bed) 7981.806 Calculation Used for Recommendations [facility] Additional Notes Pro needs 1.2-2g/k-181g/ day Fluid needs 1ml/kcal Nutrition Intervention Nutrition Support: Recommend Glucerna 1.2 at 75ml /hr when TF consult received. Goal #1 Start EN support to meet nutrient needs Anticipated Discharge Needs: Continue TF Follow-Up By: 04/04/19 Additional Comments F/U: TF consult vs PO diet order
[2019-04-02] MEDS: D5W 1,000 ML IV SCH (17:45)
[2019-04-02] MEDS: SODIUM CHLORIDE FLUSH SYRINGE 10 ML IV SCH (21:20)
[2019-04-02] MEDS: LOVENOX SUB-Q SCH (21:21)
[2019-04-02] MEDS: VANCOMYCIN 1,500 MG in NACL 0.9% 500 ML 500 ML IV SCH (22:49)
[2019-04-03] MEDS: D5W 1,000 ML IV SCH ×2 (04:45→14:09)
[2019-04-03] MEDS: VANCOMYCIN 1,500 MG in NACL 0.9% 500 ML 500 ML IV SCH ×2 (06:26→18:29)
[2019-04-03] MEDS: MAXIPIME/NS 2 GM/100 ML 2 GM/100 ML BAG IV SCH (10:23)
[2019-04-03] MEDS: SODIUM CHLORIDE FLUSH SYRINGE 10 ML IV SCH ×3 (10:23→23:55)
--- NOTE | 2019-04-03 12:12 | Consultation ---
History of Present Illness - Reason for Consult Consult date: 04/03/19 Sepsis, GPC bacteremia Requesting physician: DEENA LAND - History of Present Illness The patient is a 58-year-old male who is a intermediate resident with diabetes, hypertension, COPD, prior CVA with aphasia, dysphagia status post G-tube placement, indwelling Tijer[place] catheter was brought into the emergency room and admitted on 04/01/2019 due to fever and altered mental status. In the ER, aurora sanches was found to be septic, requiring IV fluids and antibiotics. UA was concerning for possible UTI. Blood cultures done on admission grew GPC and hence infectious diseases was consulted. Patient initially was in ICU, improved and was moved to the floor. Unable to provide history or review of systems. Now afebrile. Review of Systems: Nonverbal. ROS unobtainable. Past History Past Medical History: COPD, diabetes, hypertension, stroke, other (debility, contracture, dysphagia) Past Surgical History: Other (PEG placement) Social history: single. denies: smoking, alcohol abuse, prescription drug abuse Family history: diabetes, hypertension Medications and Allergies Allergies Allergy/AdvReac Type Severity Reaction Status Date / Time No Known Allergies Allergy Verified 02/27/15 00:48 Home Medications Medication Instructions Recorded Confirmed Last Taken Type AtorvaSTATin [Lipitor] 40 mg FEEDTUBE QHS 06/21/16 04/01/19 06/20/16 History Ascorbic Acid [Vitamin C] 500 mg FEEDTUBE QDAY 07/14/18 04/01/19 Unknown History Aspirin [Adult Aspirin Regimen] 81 mg FEEDTUBE DAILY 07/14/18 04/01/19 Unknown History Ipratropium/Albuterol Sulfate 1 ampul IH Q6HR 07/14/18 04/01/19 Unknown History [DUONEB *Not for PRN Use*] Multivitamin [Multiple Vitamins] 1 each FEEDTUBE DAILY 07/14/18 04/01/19 Unknown History Protein Supplement [Promod] 30 ml FEEDTUBE Q8H 07/14/18 04/01/19 Unknown History Acetaminophen [Acetaminophen TAB] 650 mg FEEDTUBE Q4HR PRN 11/11/18 04/01/19 Unknown History Gabapentin [Neurontin] 300 mg FEEDTUBE BID 11/11/18 04/01/19 Unknown History L. Acidophilus/L.bulgaricus 1 each FEEDTUBE QAM 11/11/18 04/01/19 Unknown History [Lactobacillus Tablet] guaiFENesin DM [Robitussin Dm] 10 ml FEEDTUBE Q6HR PRN 11/11/18 04/01/19 Unknown History PANTOPRAZOLE SODIUM (nf) [Protonix 40 mg PO DAILY 30 Days granpkt. 01/06/19 04/01/19 Unknown Rx GRANULES] Active Meds: Active Medications Albuterol (Proventil) 2.5 mg IH Q3HRT PRN PRN Reason: Shortness Of Breath Enoxaparin Sodium (Lovenox) 40 mg SUB-Q QDAY@2200 SHIRA Last Admin: 04/02/19 21:21 Dose: 40 mg Documented by: Dextrose (D5w) 1,000 mls @ 125 mls/hr IV DIRECT SHIRA Last Admin: 04/03/19 04:45 Dose: 125 mls/hr Documented by: Vancomycin HCl 1,500 mg/ (Sodium Chloride) 530 mls @ 333.333 mls/hr IV Q12H SHIRA Ceftriaxone Sodium (Rocephin/Ns 1 Gm/50 Ml) 1 gm in 50 mls @ 100 mls/hr IV Q24HR SHIRA; Protocol Sodium Chloride (Sodium Chloride Flush Syringe 10 Ml) 10 ml IV BID SHIRA Last Admin: 04/03/19 10:24 Dose: 10 ml Documented by: Sodium Chloride (Sodium Chloride Flush Syringe 10 Ml) 10 ml IV PRN PRN PRN Reason: LINE FLUSH Physical Examination - Physical Exam Narrative exam: Physical Exam: Constitutional: Alert. No acute distress Head, Ears, Nose: Normocephalic, atraumatic. External ears, nose normal Eyes: Conjunctivae/corneas clear. No icterus. No ptosis. Facial asymmetry. Neck: Supple, no meningeal signs Oral: unable to examine Cardiovascular: S1, S2 normal. Respiratory: Good air entry, clear to auscultation bilaterally GI: Soft, non-tender; bowel sounds normal. No peritoneal signs. PEG +. [place]ijer[place] + Musculoskeletal: No pedal edema, no cyanosis. Skin: No rash or abscess Hem/Lymphatic: No palpable cervical or supraclavicular nodes. No lymphangitis Psych: no agitation Neurological: Awake, alert, aphasic. - Constitutional Vitals: Vital Signs Temp Pulse Resp BP Pulse Ox 98.0 F 71 16 108/64 95 04/03/19 04:39 04/03/19 04:39 04/03/19 04:39 04/03/19 04:39 04/03/19 04:39 Temperature -Last 24 Hours Temperature 98.0 F Temperature 98.0 F Temperature 97.3 F Temperature 98.5 F Results - Labs CBC & Chem 7: 04/01/19 10:11 04/02/19 10:18 Labs: Abnormal lab results 04/02/19 Range/Units 17:45 POC Glucose 66 L (70-105) - Imaging and Cardiology Abdominal x-ray: report reviewed, image reviewed (Chest x-ray does not reveal any pneumonia) Assessment and Plan Cultures: 04/01/2019 blood culture: 2 out of 4 bottles positive for coag-negative staph 04/01/2019 urine culture: Escherichia coli A/P: 58-year-old male who is a intermediate resident with diabetes, hypertension, COPD, prior CVA with aphasia, dysphagia status post G-tube placement, indwelling Tijer[place] catheter admitted with fever, AMS: #Sepsis, likely secondary to catheter associated urinary tract infection. Improved. #UTI: Likely related to indwelling Tijerina catheter. Exchange Tijer[place] catheter. Culture growing Escherichia coli. Treat with IV ceftriaxone. #Acute encephalopathy: Likely related to infectious process, hypernatremia. CT head pending. #GPC bacteremia: 2 out of 4 bottles positive for gram-positive cocci, one set is growing coag-negative staph. Very likely, contaminant. Repeat blood cultures ordered, if negative, would discontinue vancomycin. #Acute kidney injury: On admission, improved. Recs: Discontinue cefepime Started IV ceftriaxone 1 g every 24hrs (D2 of overall abx) Tijerina exchange ordered, discussed with RN Coag-negative staph bacteremia likely contaminant, continue IV vancomycin for now Follow-up repeat blood cultures, if negative, plan to stop vancomycin Dr. Cain hernandez tomorrow. Susana Bolton MD, FACP [facility] C: [phone] O: [phone] F: [phone]
[2019-04-03] MEDS ORDERED: SODIUM BICARBONATE FEEDTUBE PRN (12:15)
[2019-04-03] MEDS ORDERED: PANCREAZE DR 10,500 UNIT FEEDTUBE PRN (12:15)
[2019-04-03] MEDS ORDERED: SIMPLE SYRUP FEEDTUBE PRN ×2 (12:15)
[2019-04-03] MEDS ORDERED: D50W (25GM) Syringe IV PRN (12:16)
--- NOTE | 2019-04-03 14:15 | Progress Note ---
Assessment and Plan Assessment and plan: 58-year-old man with history of CVA with residual deficits, seizure, diabetes, hypertension and history of alcohol abuse in the past, not currently drinking, h Patient has chronic aphasia, right-sided weakness, status post PEG and Tijerina. He was brought to the hospital from custodial for fever and altered mental status Past medical history; hypertension, CVA, diabetes, history of alcohol abuse in the past, COPD, with indwelling Tijerina status post PEG due to dysphasia Sepsis/septic shock UTI Continue antibiotics, follow up urine and blood cultures -Urine currently growing gram-negative rods, blood growing gram-positive cocci in clusters, ID consult -Patient was initially hypotensive but responded to IV fluids, did not require pressors Acute kidney injury due to vasomotor nephropathy Continue IV fluids, now resolved Chronic indwelling Tijerina, urinary retention Do not remove Acute metabolic encephalopathy Improving, follow-up CT head Hypernatremia/dehydration sp hypotonic IVF, improved DVT prophylaxis with Lovenox Critical care time 35 minutes History Interval history: Review of systems Constitutional: No fevers, no malaise, no joint pains CVS: No chest pain, no orthopnea, no dyspnea on exertion, no pedal edema GI: No abdominal pain, no diarrhea, no vomiting, no constipation Respiratory: no wheezing, no coughing Hospitalist Physical - Physical exam Narrative exam: General.: Appears well, no distress, nontoxic HEENT: Moist mucous membranes, extraocular muscles intact, no lymphadenopathy Neck: supple Cardiac: S1-S2 heard Lungs: clear to auscultation bilaterally Abdomen: soft , nontender, nondistended, bowel sounds positive Extremities: no edema clubbing or cyanosis Skin: no rash or lesions Neurologic: Expressive aphasia, right-sided weakness Psych: calm, and cooperative - Constitutional Vitals: Temp Pulse Resp BP Pulse Ox 98.4 F 67 20 113/66 94 04/03/19 12:00 04/03/19 12:00 04/03/19 12:00 04/03/19 12:00 04/03/19 12:00 General appearance: Present: mild distress Results - Labs CBC & Chem 7: 04/01/19 10:11 04/04/19 07:03 Labs: Laboratory Last Values WBC 10.5 K/mm3 (4.5-11.0) 04/01/19 10:11 RBC 4.55 M/mm3 (3.65-5.03) 04/01/19 10:11 Hgb 13.9 gm/dl (11.8-15.2) 04/01/19 10:11 Hct 41.3 % (35.5-45.6) 04/01/19 10:11 MCV 91 fl (84-94) 04/01/19 10:11 MCH 31 pg (28-32) 04/01/19 10:11 MCHC 34 % (32-34) 04/01/19 10:11 RDW 14.1 % (13.2-15.2) 04/01/19 10:11 Plt Count 104 K/mm3 (140-440) L 04/01/19 10:11 Add Manual Diff Complete 04/01/19 10:11 Total Counted 100 04/01/19 10:11 Seg Neuts % (Manual) 86.0 % (40.0-70.0) H 04/01/19 10:11 10.0 % 04/01/19 10:11 0 % (13.4-35.0) L 04/01/19 10:11 Reactive Lymphs % (Man) 0 % 04/01/19 10:11 2.0 % (0.0-7.3) 04/01/19 10:11 0 % (0.0-4.3) 04/01/19 10:11 0 % (0.0-1.8) 04/01/19 10:11 2.0 % 04/01/19 10:11 0 % 04/01/19 10:11 0 % 04/01/19 10:11 0 % 04/01/19 10:11 Nucleated RBC % Not Reportable 04/01/19 10:11 Seg Neutrophils # Man 9.0 K/mm3 (1.8-7.7) H 04/01/19 10:11 Band Neutrophils # 1.1 K/mm3 04/01/19 10:11 0.0 K/mm3 (1.2-5.4) L 04/01/19 10:11 Abs React Lymphs (Man) 0.0 K/mm3 04/01/19 10:11 0.2 K/mm3 (0.0-0.8) 04/01/19 10:11 0.0 K/mm3 (0.0-0.4) 04/01/19 10:11 0.0 K/mm3 (0.0-0.1) 04/01/19 10:11 0.2 K/mm3 04/01/19 10:11 0.0 K/mm3 04/01/19 10:11 0.0 K/mm3 04/01/19 10:11 Blast Cells # 0.0 K/mm3 04/01/19 10:11 WBC Morphology Not Reportable 04/01/19 10:11 Hypersegmented Neuts Not Reportable 04/01/19 10:11 Hyposegmented Neuts Not Reportable 04/01/19 10:11 Hypogranular Neuts Not Reportable 04/01/19 10:11 Not Reportable 04/01/19 10:11 Not Reportable 04/01/19 10:11 Not Reportable 04/01/19 10:11 Not Reportable 04/01/19 10:11 Not Reportable 04/01/19 10:11 Not Reportable 04/01/19 10:11 Consistent w auto 04/01/19 10:11 Not Reportable 04/01/19 10:11 Plt Clumps, EDTA Not Reportable 04/01/19 10:11 Not Reportable 04/01/19 10:11 Not Reportable 04/01/19 10:11 Not Reportable 04/01/19 10:11 Plt Morphology Comment Not Reportable 04/01/19 10:11 RBC Morphology Normal 04/01/19 10:11 Dimorphic RBCs Not Reportable 04/01/19 10:11 Not Reportable 04/01/19 10:11 Not Reportable 04/01/19 10:11 Not Reportable 04/01/19 10:11 Not Reportable 04/01/19 10:11 Not Reportable 04/01/19 10:11 Not Reportable 04/01/19 10:11 Not Reportable 04/01/19 10:11 Not Reportable 04/01/19 10:11 Not Reportable 04/01/19 10:11 Not Reportable 04/01/19 10:11 Not Reportable 04/01/19 10:11 Not Reportable 04/01/19 10:11 Not Reportable 04/01/19 10:11 Not Reportable 04/01/19 10:11 Not Reportable 04/01/19 10:11 Not Reportable 04/01/19 10:11 Not Reportable 04/01/19 10:11 Not Reportable 04/01/19 10:11 Not Reportable 04/01/19 10:11 Acanthocytes (Spur) Not Reportable 04/01/19 10:11 Rouleaux Not Reportable 04/01/19 10:11 Not Reportable 04/01/19 10:11 Not Reportable 04/01/19 10:11 Not Reportable 04/01/19 10:11 Not Reportable 04/01/19 10:11 Hem Pathologist Commnt No 04/01/19 10:11 PT 13.4 Sec. (12.2-14.9) 04/01/19 10:11 INR 1.05 (0.87-1.13) 04/01/19 10:11 VBG pH 7.422 (7.320-7.420) H 04/01/19 10:11 Sodium 150 mmol/L (137-145) H D 04/02/19 10:18 Potassium 3.8 mmol/L (3.6-5.0) D 04/02/19 10:18 Chloride 114.4 mmol/L (98-107) H 04/02/19 10:18 Carbon Dioxide 26 mmol/L (22-30) 04/02/19 10:18 13 mmol/L 04/02/19 10:18 BUN 34 mg/dL (9-20) H 04/02/19 10:18 0.6 mg/dL (0.8-1.5) L D 04/02/19 10:18 Estimated GFR > 60 ml/min 04/02/19 10:18 57 % 04/02/19 10:18 Glucose 85 mg/dL (75-100) 04/02/19 10:18 POC Glucose 134 (70-105) H 04/03/19 12:57 Lactic Acid 1.60 mmol/L (0.7-2.0) 04/01/19 22:12 Calcium 8.4 mg/dL (8.4-10.2) 04/02/19 10:18 0.40 mg/dL (0.1-1.2) 04/01/19 10:11 AST 34 units/L (5-40) 04/01/19 10:11 ALT 52 units/L (7-56) 04/01/19 10:11 71 units/L (35-129) 04/01/19 10:11 6.7 g/dL (6.3-8.2) 04/01/19 10:11 2.8 g/dL (3.9-5) L 04/01/19 10:11 0.7 % 04/01/19 10:11 Marilia (Yellow) 04/01/19 11:41 Cloudy (Clear) 04/01/19 11:41 6.0 (5.0-7.0) 04/01/19 11:41 Ur Specific [place] 1.016 (1.003-1.030) 04/01/19 11:41 30 mg/dl mg/dL (Negative) 04/01/19 11:41 Neg mg/dL (Negative) 04/01/19 11:41 Neg mg/dL (Negative) 04/01/19 11:41 Mod (Negative) 04/01/19 11:41 Neg (Negative) 04/01/19 11:41 Neg (Negative) 04/01/19 11:41 < 2.0 mg/dL (<2.0) 04/01/19 11:41 Ur Leukocyte Esterase Lg (Negative) 04/01/19 11:41 174.0 /HPF (0.0-6.0) H 04/01/19 11:41 101.0 /HPF (0.0-6.0) 04/01/19 11:41 4+ /HPF (Negative) 04/01/19 11:41 3+ /HPF 04/01/19 11:41 Active Medications - Current Medications Current Medications: Generic Name Dose Route Start Last Admin Trade Name Freq PRN Reason Stop Dose Admin Albuterol 2.5 mg 04/01/19 13:23 Proventil IH Q3HRT PRN Shortness Of Breath Lipase/Protease/Amylase 1 each 04/03/19 12:15 Pancreaze 10,500 Unit FEEDTUBE PRN PRN For Clogged Feeding Tube Dextrose 50 ml 04/03/19 12:16 D50w (25gm) Syringe IV PRN PRN Hypoglycemia Enoxaparin Sodium 40 mg 04/02/19 22:00 04/02/19 21:21 Lovenox SUB-Q 40 mg QDAY@2200 SHIRA Administration Dextrose 1,000 mls @ 125 mls/hr 04/02/19 16:00 04/03/19 14:09 D5w IV 125 mls/hr DIRECT SHIRA Administration Vancomycin HCl 1,500 mg/ 530 mls @ 333.333 mls/hr 04/03/19 18:00 Sodium Chloride IV Q12H SHIRA Ceftriaxone Sodium 1 gm in 50 mls @ 100 mls/hr 04/03/19 13:00 Rocephin/Ns 1 Gm/50 Ml IV Q24HR SHIRA Protocol Insulin Human Regular 0 units 04/03/19 18:00 Humulin R SUB-Q Q6HR SHIRA Protocol Simple Syrup 15 ml 04/03/19 12:15 Simple Syrup FEEDTUBE PRN PRN Hypoglycemia Simple Syrup 30 ml 04/03/19 12:15 Simple Syrup FEEDTUBE PRN PRN Hypoglycemia Sodium Bicarbonate 325 mg 04/03/19 12:15 Sodium Bicarbonate FEEDTUBE PRN PRN For Clogged Feeding Tube Sodium Chloride 10 ml 04/01/19 22:00 04/03/19 10:24 Sodium Chloride Flush Syringe 10 Ml IV 10 ml BID SHIRA Administration Sodium Chloride 10 ml 04/01/19 13:23 Sodium Chloride Flush Syringe 10 Ml IV PRN PRN LINE FLUSH Nutrition/Malnutrition Assess - Dietary Evaluation Nutrition/Malnutrition Findings: Nutrition Notes Start: 04/02/19 14:47 Freq: Status: Active Protocol: Document 04/02/19 14:47 HENRIK (Rec: 04/02/19 14:53 HENRIK SRW- [email or web address]) Nutrition Notes Need for Assessment generated from: pigment mixer Initial or Follow up Assessment Current Diagnosis COPD,Diabetes,Sepsis, Hypertension,Stroke Other Pertinent Diagnosis UTI, Encephalopathy, ARF, Dysphagia, Debility Current Diet No diet ordered Labs/Tests Na 150 BUN 34 Pertinent Medications NS at 100ml/hr Height 6 ft Weight 90.718 kg [place] Body Weight (kg) 80.90 BMI 27.1 Weight Status Overweight Subjective/Other Information Pt screened for chewing difficulty and hx of receiving NTR support. He is from [place] and has a PEG tube; receives Glucerna 1.5 at 80ml/hr (from [id number]) at [place]. Per records , he receives a pureed diet with thickened liquids as well . Burn Absent Trauma Absent #1 Nutrition Diagnosis Inadequate oral intake Etiology hx of CVA and dysphagia As Evidenced by Signs and Symptoms pt NPO; requires EN support to meet nutrient needs Is patient on ventilator? No Is Patient Ambulatory and/or Out of Bed No REE-([facility] [place]-confined to bed) [phone] Calculation Used for Recommendations [facility] Additional Notes Pro needs 1.2-2g/k-181g/ day Fluid needs 1ml/kcal Nutrition Intervention Nutrition Support: Recommend Glucerna 1.2 at 75ml /hr when TF consult received. Goal #1 Start EN support to meet nutrient needs Anticipated Discharge Needs: Continue TF Follow-Up By: 04/04/19 Additional Comments F/U: TF consult vs PO diet order
[2019-04-03 15:02] LABS: BUN/Creatinine Ratio 48; Blood Urea Nitrogen 19 mg/dL (9-20); Calcium 8.1 mg/dL (8.4-10.2); Hemolysis Index 42
[2019-04-03] MEDS: ROCEPHIN/NS 1 GM/50 ML 1 GM/50 ML BAG IV SCH (16:39)
[2019-04-03] MEDS: HumuLIN R SUB-Q SCH (18:30)
[2019-04-03] MEDS: LOVENOX SUB-Q SCH (23:05)
[2019-04-04] MEDS: HumuLIN R SUB-Q SCH ×4 (02:15→17:28)
[2019-04-04] MEDS: D5W 1,000 ML IV SCH (02:15)
[2019-04-04] MEDS: VANCOMYCIN 1,500 MG in NACL 0.9% 500 ML 500 ML IV SCH ×2 (06:43→17:27)
[2019-04-04 07:53] LABS: BUN/Creatinine Ratio 35; Blood Urea Nitrogen 14 mg/dL (9-20); Calcium 8.1 mg/dL (8.4-10.2); Hemolysis Index 5
[2019-04-04] MEDS: SODIUM CHLORIDE FLUSH SYRINGE 10 ML IV SCH ×2 (10:44→21:44)
[2019-04-04] MEDS: ROCEPHIN/NS 1 GM/50 ML 1 GM/50 ML BAG IV SCH (10:44)
[2019-04-04] MEDS ORDERED: TYLENOL FEEDTUBE PRN (11:18)
--- NOTE | 2019-04-04 11:21 | Discharge Summary ---
Providers - Providers Date of Admission: 04/01/19 13:23 Attending physician: DEENA LAND MD 04/02/19 15:02 Consult to Physician [CONS] Routine Comment: Consulting Provider: JOCELIN STARR Physician Instructions: Reason For Exam: sepsis 04/02/19 18:21 Consult to Wound/ET Nurse [CONS] Routine Reason For Exam: wound eval 04/03/19 12:15 Consult to Dietitian/Nutrition [CONS] Routine Physician Instructions: Reason For Exam: Reason for Consult: Write/Manage Tube Feeding Consult to Dietitian/Nutrition [CONS] Routine Physician Instructions: Assess nutrtn needs, initiate, modify, manage TF Reason For Exam: Reason for Consult: Write/Manage Tube Feeding Reason for Consult: Write/Manage Tube Feeding Primary care physician: CAROLINE NG Hospitalization Condition: Stable Hospital course: 58-year-old man with history of CVA with residual deficits, seizure, diabetes, hypertension and history of alcohol abuse in the past, not currently drinking, h Patient has chronic aphasia, right-sided weakness, status post PEG and Tijer[place]. He was brought to the hospital from skilled nursing for fever and altered mental status Past medical history; hypertension, CVA, diabetes, history of alcohol abuse in the past, COPD, with indwelling Tijer[place] status post PEG due to dysphasia Sepsis/septic shock UTI Continue antibiotics, follow up urine and blood cultures -Urine currently growing gram-negative rods, blood growing gram-positive cocci in clusters, ID consult -Patient was initially hypotensive but responded to IV fluids, did not require pressors Acute kidney injury due to vasomotor nephropathy Continue IV fluids, now resolved Chronic indwelling Tijerina Did not remove Acute metabolic encephalopathy Improving, follow-up CT head Hypernatremia/dehydration Change IV fluids to D5 water DVT prophylaxis with Lovenox Critical care time 35 minutes Disposition: [id number]/[place]-03 [facility] Time spent for discharge: 33 mins Core Measure Documentation - Palliative Care Palliative Care/ Comfort Measures: Not Applicable - Core Measures Any of the following diagnoses?: none Exam - Physical Exam Narrative exam: General.: Appears well, no distress, nontoxic HEENT: Moist mucous membranes, extraocular muscles intact, no lymphadenopathy Neck: supple Cardiac: S1-S2 heard Lungs: clear to auscultation bilaterally Abdomen: soft , nontender, nondistended, bowel sounds positive Extremities: no edema clubbing or cyanosis Skin: no rash or lesions Neurologic: Expressive aphasia, right-sided weakness Psych: calm, and cooperative - Constitutional Vitals: Temp Pulse Resp BP Pulse Ox 97.9 F 83 18 138/78 95 04/04/19 05:15 04/04/19 05:15 04/04/19 05:15 04/04/19 05:15 04/04/19 05:15 Plan Follow up with: CAROLINE NG MD [Primary Care Provider] - 3-5 Days
--- NOTE | 2019-04-04 13:54 | Progress Note ---
Assessment and Plan Cultures: 04/01/2019 blood culture: 2 out of 4 bottles positive for coag-negative staph 04/01/2019 urine culture: Escherichia coli 04/03/2019 blood culture: pending A/P: 58-year-old male who is a snf resident with diabetes, hypertension, COPD, prior CVA with aphasia, dysphagia status post G-tube placement, indwelling Slade catheter admitted with fever, AMS: 1) Sepsis, likely secondary to catheter associated urinary tract infection. Improved. 2) UTI: Likely related to indwelling Slade catheter. Exchange Slade catheter. Culture growing Escherichia coli. On IV ceftriaxone. 3) Acute encephalopathy: Likely related to infectious process, hypernatremia. CT head pending. 4) CoNS bacteremia: 2 out of 4 bottles positive for gram-positive cocci, one set is growing coag-negative staph. Very likely, contaminant. Repeat blood cultures ordered, if negative, would discontinue vancomycin. 5) Acute kidney injury: On admission, improved. 6) SP pain ? likely urinary retention, bladder scan +900cc Recs: treat urinary retention/exchange slade if has not been done continue ceftriaxone 1 g every 24hrs (D3 of overall abx) Coag-negative staph bacteremia likely contaminant, stop vancomycin once repeat blood culture are negative At discharge will do ceftin 500 mg PO BID total 7 days until 04/08 Will follow. Discussed with Dr Ra Yousif MD Infectious Diseases Stem Lead [facility] M [phone] O [phone] Subjective Date of service: 04/04/19 Principal diagnosis: UTI Interval history: Non verbal no fever. Objective - Exam Narrative Exam: General: Alert in NAD non verbal Head, Ears, Nose: Normocephalic, atraumatic. External ears, nose normal Eyes: Conjunctivae/corneas clear. No icterus. No ptosis. Facial asymmetry. Neck: Supple, no meningeal signs Oral: unable to examine Cardiovascular: S1, S2 normal. Respiratory: Good air entry, clear to auscultation bilaterally GI: Soft, +tender SP/+distended. PEG +. Slade + Musculoskeletal: dina pedal edema, no cyanosis. Skin: No rash or abscess Hem/Lymphatic: No palpable cervical or supraclavicular nodes. No lymphangitis Psych: no agitation Neurological: Awake, alert, aphasic. - Constitutional Vitals: Vital Signs Temp Pulse Resp BP Pulse Ox 97.8 F 57 L 16 135/77 91 04/04/19 11:39 04/04/19 11:39 04/04/19 11:39 04/04/19 11:39 04/04/19 11:39 Temperature -Last 24 Hours Temperature 97.8 F Temperature 97.9 F Temperature 98.0 F Temperature 98.4 F - Labs CBC & Chem 7: 04/01/19 10:11 04/04/19 07:03 Labs: Abnormal lab results 04/03/19 04/03/19 04/04/19 Range/Units 13:14 17:26 02:14 Potassium 3.4 L (3.6-5.0) mmol/L Chloride 112.4 H (98-107) mmol/L Creatinine 0.4 L (0.8-1.5) mg/dL Glucose 116 H (75-100) mg/dL POC Glucose 159 H 179 H (70-105) Calcium 8.1 L (8.4-10.2) mg/dL Phosphorus 1.80 L (2.5-4.5) mg/dL 04/04/19 04/04/19 04/04/19 Range/Units 05:35 07:03 11:17 Potassium 3.3 L (3.6-5.0) mmol/L Chloride (98-107) mmol/L Creatinine 0.4 L (0.8-1.5) mg/dL Glucose 164 H (75-100) mg/dL POC Glucose 174 H 157 H (70-105) Calcium 8.1 L (8.4-10.2) mg/dL Phosphorus (2.5-4.5) mg/dL
[2019-04-04] MEDS: BABY ASPIRIN FEEDTUBE SCH (13:57)
[2019-04-04] MEDS: PREVACID SOLUTAB FEEDTUBE SCH (13:57)
[2019-04-04] MEDS: NEURONTIN FEEDTUBE SCH ×2 (17:27→21:44)
[2019-04-04] MEDS: DUONEB *Not for PRN Use IH SCH ×2 (18:04→22:04)
[2019-04-04] MEDS: LOVENOX SUB-Q SCH (21:44)
[2019-04-04] MEDS ORDERED: NEURONTIN FEEDTUBE SCH (22:00)
[2019-04-05] MEDS: HumuLIN R SUB-Q SCH ×3 (01:26→11:49)
[2019-04-05] MEDS: DUONEB *Not for PRN Use IH SCH ×2 (02:26→08:51)
--- NOTE | 2019-04-05 05:38 | Progress Note ---
Assessment and Plan Assessment and plan: 58-year-old man with history of CVA with residual deficits, seizure, diabetes, hypertension and history of alcohol abuse in the past, not currently drinking, h Patient has chronic aphasia, right-sided weakness, status post PEG and Slade. He was brought to the hospital from custodial for fever and altered mental status Past medical history; hypertension, CVA, diabetes, history of alcohol abuse in the past, COPD, with indwelling Slade status post PEG due to dysphasia Sepsis/septic shock UTI Continue antibiotics, follow up urine and blood cultures -Urine currently growing gram-negative rods, blood growing gram-positive cocci in clusters, ID consult -Patient was initially hypotensive but responded to IV fluids, did not require pressors Acute kidney injury due to vasomotor nephropathy Continue IV fluids, now resolved Chronic indwelling Slade, urinary retention Do not remove slade exchanged today as it was clogged Acute metabolic encephalopathy Improving, follow-up CT head Hypernatremia/dehydration sp hypotonic IVF, improved DVT prophylaxis with Lovenox DC back to snf when abx plan given by ID History Interval history: Review of systems Constitutional: No fevers, no malaise, no joint pains CVS: No chest pain, no orthopnea, no dyspnea on exertion, no pedal edema GI: No abdominal pain, no diarrhea, no vomiting, no constipation Respiratory: no wheezing, no coughing Hospitalist Physical - Physical exam Narrative exam: General.: Appears well, no distress, nontoxic HEENT: Moist mucous membranes, extraocular muscles intact, no lymphadenopathy Neck: supple Cardiac: S1-S2 heard Lungs: clear to auscultation bilaterally Abdomen: soft , nontender, nondistended, bowel sounds positive Extremities: no edema clubbing or cyanosis Skin: no rash or lesions Neurologic: Expressive aphasia, right-sided weakness Psych: calm, and cooperative - Constitutional Vitals: Temp Pulse Resp BP Pulse Ox 97.7 F 77 20 97/60 93 04/04/19 23:36 04/05/19 02:39 04/05/19 02:39 04/04/19 23:36 04/04/19 23:36 General appearance: Present: mild distress Results - Labs CBC & Chem 7: 04/01/19 10:11 04/04/19 07:03 Labs: Laboratory Last Values WBC 10.5 K/mm3 (4.5-11.0) 04/01/19 10:11 RBC 4.55 M/mm3 (3.65-5.03) 04/01/19 10:11 Hgb 13.9 gm/dl (11.8-15.2) 04/01/19 10:11 Hct 41.3 % (35.5-45.6) 04/01/19 10:11 MCV 91 fl (84-94) 04/01/19 10:11 MCH 31 pg (28-32) 04/01/19 10:11 MCHC 34 % (32-34) 04/01/19 10:11 RDW 14.1 % (13.2-15.2) 04/01/19 10:11 Plt Count 104 K/mm3 (140-440) L 04/01/19 10:11 Add Manual Diff Complete 04/01/19 10:11 Total Counted 100 04/01/19 10:11 Seg Neuts % (Manual) 86.0 % (40.0-70.0) H 04/01/19 10:11 10.0 % 04/01/19 10:11 0 % (13.4-35.0) L 04/01/19 10:11 Reactive Lymphs % (Man) 0 % 04/01/19 10:11 2.0 % (0.0-7.3) 04/01/19 10:11 0 % (0.0-4.3) 04/01/19 10:11 0 % (0.0-1.8) 04/01/19 10:11 2.0 % 04/01/19 10:11 0 % 04/01/19 10:11 0 % 04/01/19 10:11 0 % 04/01/19 10:11 Nucleated RBC % Not Reportable 04/01/19 10:11 Seg Neutrophils # Man 9.0 K/mm3 (1.8-7.7) H 04/01/19 10:11 Band Neutrophils # 1.1 K/mm3 04/01/19 10:11 0.0 K/mm3 (1.2-5.4) L 04/01/19 10:11 Abs React Lymphs (Man) 0.0 K/mm3 04/01/19 10:11 0.2 K/mm3 (0.0-0.8) 04/01/19 10:11 0.0 K/mm3 (0.0-0.4) 04/01/19 10:11 0.0 K/mm3 (0.0-0.1) 04/01/19 10:11 0.2 K/mm3 04/01/19 10:11 0.0 K/mm3 04/01/19 10:11 0.0 K/mm3 04/01/19 10:11 Blast Cells # 0.0 K/mm3 04/01/19 10:11 WBC Morphology Not Reportable 04/01/19 10:11 Hypersegmented Neuts Not Reportable 04/01/19 10:11 Hyposegmented Neuts Not Reportable 04/01/19 10:11 Hypogranular Neuts Not Reportable 04/01/19 10:11 Not Reportable 04/01/19 10:11 Not Reportable 04/01/19 10:11 Not Reportable 04/01/19 10:11 Not Reportable 04/01/19 10:11 Not Reportable 04/01/19 10:11 Not Reportable 04/01/19 10:11 Consistent w auto 04/01/19 10:11 Not Reportable 04/01/19 10:11 Plt Clumps, EDTA Not Reportable 04/01/19 10:11 Not Reportable 04/01/19 10:11 Not Reportable 04/01/19 10:11 Not Reportable 04/01/19 10:11 Plt Morphology Comment Not Reportable 04/01/19 10:11 RBC Morphology Normal 04/01/19 10:11 Dimorphic RBCs Not Reportable 04/01/19 10:11 Not Reportable 04/01/19 10:11 Not Reportable 04/01/19 10:11 Not Reportable 04/01/19 10:11 Not Reportable 04/01/19 10:11 Not Reportable 04/01/19 10:11 Not Reportable 04/01/19 10:11 Not Reportable 04/01/19 10:11 Not Reportable 04/01/19 10:11 Not Reportable 04/01/19 10:11 Not Reportable 04/01/19 10:11 Not Reportable 04/01/19 10:11 Not Reportable 04/01/19 10:11 Not Reportable 04/01/19 10:11 Not Reportable 04/01/19 10:11 Not Reportable 04/01/19 10:11 Not Reportable 04/01/19 10:11 Not Reportable 04/01/19 10:11 Not Reportable 04/01/19 10:11 Not Reportable 04/01/19 10:11 Acanthocytes (Spur) Not Reportable 04/01/19 10:11 Rouleaux Not Reportable 04/01/19 10:11 Not Reportable 04/01/19 10:11 Not Reportable 04/01/19 10:11 Not Reportable 04/01/19 10:11 Not Reportable 04/01/19 10:11 Hem Pathologist Commnt No 04/01/19 10:11 PT 13.4 Sec. (12.2-14.9) 04/01/19 10:11 INR 1.05 (0.87-1.13) 04/01/19 10:11 VBG pH 7.422 (7.320-7.420) H 04/01/19 10:11 Sodium 138 mmol/L (137-145) 04/04/19 07:03 Potassium 3.3 mmol/L (3.6-5.0) L 04/04/19 07:03 Chloride 102.7 mmol/L (98-107) 04/04/19 07:03 Carbon Dioxide 26 mmol/L (22-30) 04/04/19 07:03 13 mmol/L 04/04/19 07:03 BUN 14 mg/dL (9-20) 04/04/19 07:03 0.4 mg/dL (0.8-1.5) L 04/04/19 07:03 Estimated GFR > 60 ml/min 04/04/19 07:03 35 % 04/04/19 07:03 Glucose 164 mg/dL (75-100) H 04/04/19 07:03 POC Glucose 185 (70-105) H 04/05/19 00:02 Lactic Acid 1.60 mmol/L (0.7-2.0) 04/01/19 22:12 Calcium 8.1 mg/dL (8.4-10.2) L 04/04/19 07:03 Phosphorus 1.80 mg/dL (2.5-4.5) L 04/03/19 13:14 Magnesium 2.00 mg/dL (1.7-2.3) 04/03/19 13:14 0.40 mg/dL (0.1-1.2) 04/01/19 10:11 AST 34 units/L (5-40) 04/01/19 10:11 ALT 52 units/L (7-56) 04/01/19 10:11 71 units/L (35-129) 04/01/19 10:11 6.7 g/dL (6.3-8.2) 04/01/19 10:11 2.8 g/dL (3.9-5) L 04/01/19 10:11 0.7 % 04/01/19 10:11 Marilia (Yellow) 04/01/19 11:41 Cloudy (Clear) 04/01/19 11:41 6.0 (5.0-7.0) 04/01/19 11:41 Ur Specific [place] 1.016 (1.003-1.030) 04/01/19 11:41 30 mg/dl mg/dL (Negative) 04/01/19 11:41 Neg mg/dL (Negative) 04/01/19 11:41 Neg mg/dL (Negative) 04/01/19 11:41 Mod (Negative) 04/01/19 11:41 Neg (Negative) 04/01/19 11:41 Neg (Negative) 04/01/19 11:41 < 2.0 mg/dL (<2.0) 04/01/19 11:41 Ur Leukocyte Esterase Lg (Negative) 04/01/19 11:41 174.0 /HPF (0.0-6.0) H 04/01/19 11:41 101.0 /HPF (0.0-6.0) 04/01/19 11:41 4+ /HPF (Negative) 04/01/19 11:41 3+ /HPF 04/01/19 11:41 Active Medications - Current Medications Current Medications: Generic Name Dose Route Start Last Admin Trade Name Freq PRN Reason Stop Dose Admin Acetaminophen 650 mg 04/04/19 11:18 Tylenol FEEDTUBE Q4HR PRN Pain, Mild (1-3) Albuterol 2.5 mg 04/01/19 13:23 Proventil IH Q3HRT PRN Shortness Of Breath Albuterol/Ipratropium 1 ampul 04/04/19 14:00 04/05/19 02:26 Duoneb *Not For Prn Use* IH 1 ampul Q6HRT SHIRA Administration Lipase/Protease/Amylase 1 each 04/03/19 12:15 Pancredonovan Lilly 10,500 Unit FEEDTUBE PRN PRN For Clogged Feeding Tube Ascorbic Acid 500 mg 04/05/19 10:00 Vitamin C FEEDTUBE QDAY SHIRA Aspirin 81 mg 04/04/19 12:00 04/04/19 13:57 Baby Aspirin FEEDTUBE 81 mg QDAY SHIRA Administration Atorvastatin Calcium 40 mg 04/04/19 22:00 04/04/19 21:44 Lipitor FEEDTUBE 40 mg QHS SHIRA Administration Dextrose 50 ml 04/03/19 12:16 D50w (25gm) Syringe IV PRN PRN Hypoglycemia Enoxaparin Sodium 40 mg 04/02/19 22:00 04/04/19 21:44 Lovenox SUB-Q 40 mg QDAY@2200 SHIRA Administration Gabapentin 300 mg 04/04/19 13:00 04/04/19 21:44 Neurontin FEEDTUBE 300 mg BID SHIRA Administration Guaifenesin 10 ml 04/04/19 11:18 Guaifenesin Dm Syrup FEEDTUBE Q6HR PRN Cough Dextrose 1,000 mls @ 125 mls/hr 04/02/19 16:00 04/04/19 02:15 D5w IV 125 mls/hr DIRECT SHIRA Administration Vancomycin HCl 1,500 mg/ 530 mls @ 333.333 mls/hr 04/03/19 18:00 04/04/19 17:27 Sodium Chloride IV 333.333 mls/hr Q12H SHIRA Administration Ceftriaxone Sodium 1 gm in 50 mls @ 100 mls/hr 04/03/19 13:00 04/04/19 10:44 Rocephin/Ns 1 Gm/50 Ml IV 100 mls/hr Q24HR SHIRA Administration Protocol Insulin Human Regular 0 units 04/03/19 18:00 04/05/19 01:26 Humulin R SUB-Q 1 units Q6HR SHIRA Administration Protocol Lactobacillus Acidophilus 1 each 04/05/19 10:00 Floranex FEEDTUBE QAM SHIRA Lansoprazole 30 mg 04/04/19 12:00 04/04/19 13:57 Prevacid Solutab FEEDTUBE 30 mg QDAY SHIRA Administration Multivitamins 5 ml 04/05/19 10:00 Centrum Liq FEEDTUBE QDAY SHIRA Simple Syrup 15 ml 04/03/19 12:15 Simple Syrup FEEDTUBE PRN PRN Hypoglycemia Simple Syrup 30 ml 04/03/19 12:15 Simple Syrup FEEDTUBE PRN PRN Hypoglycemia Sodium Bicarbonate 325 mg 04/03/19 12:15 Sodium Bicarbonate FEEDTUBE PRN PRN For Clogged Feeding Tube Sodium Chloride 10 ml 04/01/19 22:00 04/04/19 21:44 Sodium Chloride Flush Syringe 10 Ml IV 10 ml BID SHIRA Administration Sodium Chloride 10 ml 04/01/19 13:23 Sodium Chloride Flush Syringe 10 Ml IV PRN PRN LINE FLUSH Nutrition/Malnutrition Assess - Dietary Evaluation Nutrition/Malnutrition Findings: Nutrition Notes Start: 04/02/19 14:47 Freq: Status: Active Protocol: Document 04/04/19 15:56 RM (Rec: 04/04/19 16:11 RM [id number]) Nutrition Notes Initial or Follow up Reassessment Current Diagnosis COPD,Diabetes,Sepsis, Hypertension,Stroke Other Pertinent Diagnosis UTI, Encephalopathy, ARF, Dysphagia, Debility, PEG Current Diet Glucerna 1.2 at 50 ml/hr Labs/Tests Reviewed Pertinent Medications Reviewed Height 6 ft Weight 90.718 kg [place] Body Weight (kg) 80.90 BMI 27.1 Subjective/Other Information Consulted for TF recommendation. Pt moved to 3A. Observed Glucerna 1.2 infusing at 50 ml /hr. Percent of energy/protein needs met: 68%/79% Burn Absent Trauma Absent #1 Nutrition Diagnosis Inadequate oral intake Diagnosis Progress(for reassessment Continues documentation) Is patient on ventilator? No Is Patient Ambulatory and/or Out of Bed No REE-([facility]-confined to bed) 6744.236 Calculation Used for Recommendations [facility] Additional Notes Pro needs: 91-118g (1-1.3g/kg) Fluid needs: 1ml/kcal Nutrition Intervention Nutrition Support: Glucerna at 75 ml/hr Water flush of 120 mls q 4 hrs Kcal 2,160 Protein (gm) 108 Fluid (mL) 1,449 Goal #1 Meet at least 75% of calorie and protein needs via TF Anticipated Discharge Needs: TF Follow-Up By: 04/06/19 Additional Comments Follow for new TF/TF tolerance
[2019-04-05 05:57] LABS: BUN/Creatinine Ratio 28; Blood Urea Nitrogen 14 mg/dL (9-20); Calcium 7.4 mg/dL (8.4-10.2); Hemolysis Index 11
[2019-04-05] MEDS: VANCOMYCIN 1,500 MG in NACL 0.9% 500 ML 500 ML IV SCH (06:44)
[2019-04-05] MEDS ORDERED: PROVENTIL IH PRN (08:55)
[2019-04-05] MEDS: ROCEPHIN/NS 1 GM/50 ML 1 GM/50 ML BAG IV SCH (09:37)
[2019-04-05] MEDS: BABY ASPIRIN FEEDTUBE SCH (09:38)
[2019-04-05] MEDS: NEURONTIN FEEDTUBE SCH (09:38)
[2019-04-05] MEDS: PREVACID SOLUTAB FEEDTUBE SCH (09:38)
[2019-04-05] MEDS: SODIUM CHLORIDE FLUSH SYRINGE 10 ML IV SCH (09:39)
[2019-04-05] MEDS ORDERED: PANTOPRAZOLE SODIUM 40 MG FEEDTUBE SCH (10:00)
[2019-04-05] MEDS ORDERED: HALFPRIN EC PO SCH (10:00)
[2019-04-05] MEDS ORDERED: ACIDOPHILUS FEEDTUBE SCH (10:00)
[2019-04-05] MEDS ORDERED: FLORANEX FEEDTUBE SCH (10:00)
[2019-04-05] MEDS ORDERED: NON-FORMULARY (Multivitamin [Multiple Vitamins] 1 EACH) FEEDTUBE SCH (10:00)
[2019-04-05] MEDS ORDERED: BULGARICUS FEEDTUBE SCH (10:00)
[2019-04-05] MEDS ORDERED: Centrum Liq FEEDTUBE SCH (10:00)
[2019-04-05] MEDS ORDERED: POTASSIUM CHLORIDE PO SCH (10:00)
[2019-04-05] MEDS ORDERED: VITAMIN C FEEDTUBE SCH (10:00)
--- NOTE | 2019-04-05 10:58 | Progress Note ---
Assessment and Plan Cultures: 04/01/2019 blood culture: 2 out of 4 bottles positive for coag-negative staph 04/01/2019 urine culture: Escherichia coli 04/03/2019 blood culture: no growth x 24h A/P: 58-year-old male who is a senior care resident with diabetes, hypertension, COPD, prior CVA with aphasia, dysphagia status post G-tube placement, indwelling Slade catheter admitted with fever, AMS: 1) Sepsis, likely secondary to catheter associated urinary tract infection. Improved. 2) UTI: Likely related to indwelling Slade catheter. Culture growing Escherichia coli. On IV ceftriaxone. 3) Acute encephalopathy: Likely related to infectious process, hypernatremia. CT head pending. 4) CoNS bacteremia: 2 out of 4 bottles positive for gram-positive cocci, one set is growing coag-negative staph. Very likely, contaminant. Repeat blood cultures ordered, if negative, would discontinue vancomycin. 5) Acute kidney injury: On admission, improved. 6) SP pain ? likely urinary retention, bladder scan +900cc, slade cath exchanged Recs: continue ceftriaxone 1 g every 24hrs D4 Coag-negative staph bacteremia likely contaminant, stop vancomycin, repeat blood culture no growth At discharge will do ceftin 500 mg PO BID total 7 days until 04/08 Ok to d/c from ID stand point Brianna Yousif MD Infectious Diseases [employer] [facility] [phone] Subjective Date of service: 04/05/19 Principal diagnosis: UTI Interval history: Non verbal no fever. Objective - Exam Narrative Exam: General: Alert in NAD non verbal Head, Ears, Nose: Normocephalic, atraumatic. External ears, nose normal Eyes: Conjunctivae/corneas clear. No icterus. No ptosis. Facial asymmetry. Neck: Supple, no meningeal signs Oral: unable to examine Cardiovascular: S1, S2 normal. Respiratory: Good air entry, clear to auscultation bilaterally GI: Soft, non tender SP/ non distended. PEG +. Slade + Musculoskeletal: dina pedal edema, no cyanosis. Skin: No rash or abscess Hem/Lymphatic: No palpable cervical or supraclavicular nodes. No lymphangitis Psych: no agitation Neurological: Awake, alert, aphasic. - Constitutional Vitals: Vital Signs Temp Pulse Resp BP Pulse Ox 97.5 F L 80 16 92/54 95 04/05/19 05:18 04/05/19 08:59 04/05/19 08:59 04/05/19 05:18 04/05/19 08:54 Temperature -Last 24 Hours Temperature 97.5 F Temperature 97.7 F Temperature 97.8 F Temperature 97.8 F - Labs CBC & Chem 7: 04/01/19 10:11 04/05/19 05:01 Labs: Abnormal lab results 04/04/19 04/04/19 04/05/19 Range/Units 11:17 17:24 00:02 Potassium (3.6-5.0) mmol/L Creatinine (0.8-1.5) mg/dL Glucose (75-100) mg/dL POC Glucose 157 H 175 H 185 H (70-105) Calcium (8.4-10.2) mg/dL 04/05/19 04/05/19 Range/Units 05:01 05:28 Potassium 3.1 L (3.6-5.0) mmol/L Creatinine 0.5 L (0.8-1.5) mg/dL Glucose 155 H (75-100) mg/dL POC Glucose 187 H (70-105) Calcium 7.4 L (8.4-10.2) mg/dL
[2019-04-05 11:54] VITALS: BP 100/60
--- NOTE | 2019-04-05 12:38 | Discharge Summary ---
Providers - Providers Date of Admission: 04/01/19 13:23 Date of discharge: 04/05/19 Attending physician: MARÍA AGUILAR 04/02/19 15:02 Consult to Physician [CONS] Routine Comment: Consulting Provider: JOCELIN STARR Physician Instructions: Reason For Exam: sepsis 04/02/19 18:21 Consult to Wound/ET Nurse [CONS] Routine Reason For Exam: wound eval 04/03/19 12:15 Consult to Dietitian/Nutrition [CONS] Routine Physician Instructions: Reason For Exam: Reason for Consult: Write/Manage Tube Feeding Consult to Dietitian/Nutrition [CONS] Routine Physician Instructions: Assess nutrtn needs, initiate, modify, manage TF Reason For Exam: Reason for Consult: Write/Manage Tube Feeding Reason for Consult: Write/Manage Tube Feeding Primary care physician: CAROLINE NG Hospitalization Condition: Stable Hospital course: Patient is a 58-year-old man from [facility] with history of CVA with residual deficits/peg/aphasia/neurogenic bladder with chronic slade, COPD, seizure disorder, type 2 diabetes mellitus, hypertension and remote alcohol abuse in the past who presented to [facility] ED with fever and altered mental status Cultures: 04/01/2019 blood culture: 2 out of 4 bottles positive for coag-negative staph 04/01/2019 urine culture: Escherichia coli 04/03/2019 blood culture: no growth x 24h Discharge Diagnoses: Severe Sepsis, poa UTI with sepsis Acute Renal Failure due to ATN from hypotension, poa + vasomotor nephropathy + Chronic indwelling Slade, urinary retention: Do not remove, his meatus looks deformed, sldae cath exchanged Acute metabolic encephalopathy, poa, Improving, follow-up CT head Hypernatremia/dehydration Late Effect of CVA ID Recs: continue ceftriaxone 1 g every 24hrs D4 Coag-negative staph bacteremia likely contaminant, stop vancomycin, repeat blood culture no growth At discharge will do ceftin 500 mg PO BID total 7 days until 04/08 Ok to d/c from ID stand point Disposition: DC/[place]-03 SNF [facility] Time spent for discharge: 37 minutes Core Measure Documentation - Palliative Care Palliative Care/ Comfort Measures: Not Applicable - Core Measures Any of the following diagnoses?: none - VTE Discharge Requirements Deep Vein Thrombosis/Pulmonary Embolism Present on Admission: No Has pt received <5 days of overlap therapy or INR<2.0: No Anticoagulant overlap therapy prescribed at discharge: No Contraindication No Overlap Therapy order at DC: Not Indicated Exam - Physical Exam Narrative exam: Gen: chronically ill appearing and disable, nonverbal NAD, Awake, Alert, Orientated HEENT: NCAT, EOMI, PERRL, OP Clear Neck: supple, no adenopathy, no thyromegaly, no JVD CVS/Heart: RRR, normal S1S2, pulses present bilaterally Chest/Lungs: CTA B, Symmetrical chest expansion, good air entry bilaterally GI/Abdomen: soft, NTND, good bowel sounds, no guarding or rebound /Bladder: no suprapubic tenderness, no CVA or paraspinal tenderness Extermity/Skin: atrophic skin MSK: contracted limbs Neuro: CN 2-12 grossly intact except speech, right hemiparesis Psych: calm - Constitutional Vitals: Temp Pulse Resp BP Pulse Ox 98.8 F 79 16 100/60 95 04/05/19 11:21 04/05/19 11:21 04/05/19 11:21 04/05/19 11:21 04/05/19 11:21 Plan Activity: fall precautions, other (no strenous activities ) Diet: per dietitian instruction Follow up with: CAROLINE NG MD [Primary Care Provider] - 3-5 Days Prescriptions: cefUROXime [Ceftin] 2 tab PO Q12H #8 tablet
[2019-04-05] MEDS ORDERED: DUONEB *Not for PRN Use IH SCH (14:00)
== END 2019-04-05 17:17 | DRG 871 ==
LOC: ED 09:20 → IMCU 13:23 → CC1 19:20 → 3A 04-02 18:43
PROVIDERS: ADMIT Internal Medicine; ATTEND Internal Medicine
DX: A41.9 Sepsis, unspecified organism (principal); N17.0 Acute kidney failure with tubular necrosis; R65.21 Severe sepsis with septic shock; G93.41 Metabolic encephalopathy; N39.0 Urinary tract infection, site not specified; E87.1 Hypo-osmolality and hyponatremia; I69.354 Hemiplegia and hemiparesis following cerebral infarction affecting left non-dominant side; I10 Essential (primary) hypertension; J44.9 Chronic obstructive pulmonary disease, unspecified; E86.0 Dehydration; Z83.3 Family history of diabetes mellitus; Z82.49 Family history of ischemic heart disease and other diseases of the circulatory system; Z79.82 Long term (current) use of aspirin; Z79.899 Other long term (current) drug therapy; Z93.1 Gastrostomy status
CPT/HCPCS: 36415; 51702; 70450; 71045; 80048; 80053; 81001; 82140; 82805; 82962; 83735; 84100; 85007; 85025; 85610; 87040; 87076; 87086; 87186; 93005; 93010; 94640; 94760; 96365; 96367; 96368; G0378; A9270-GY; J0692; J0696; J1644; J1650; J1815; J3370; J7030; J7040; J7050; J7070

== ENCOUNTER 2019-06-15 12:40 | Inpatient (IN) | payer MEDICARE ==
[2019-06-15] MEDS ORDERED: SODIUM CHLORIDE 0.9% 500 ML 500 ML IV ONE ×2 (13:05→18:54)
[2019-06-15 13:15] LABS: Basophils % (Auto) 0.4 % (0.0-1.8); Hematocrit 41.2 % (35.5-45.6); Hemoglobin 13.1 gm/dl (11.8-15.2); Lymphocytes # (Auto) 0.4 K/mm3 (1.2-5.4); Lymphocytes % (Auto) 3.4 % (13.4-35.0); Mean Corpuscular HGB Conc 32 % (32-34); Mean Corpuscular Volume 90 fl (84-94); Monocytes # (Auto) 0.8 K/mm3 (0.0-0.8); Platelet Count 124 K/mm3 (140-440); Red Blood Count 4.56 M/mm3 (3.65-5.03); Red Cell Distribution Width 15.2 % (13.2-15.2)
[2019-06-15 13:24] LABS: INR 1.09 (0.87-1.13)
--- NOTE | 2019-06-15 13:29 | XRay Report ---
CHEST 1 VIEW 1:08 PM INDICATION / CLINICAL INFORMATION: Possible sepsis. COMPARISON: 04/01/2019. FINDINGS: SUPPORT DEVICES: None. HEART / MEDIASTINUM: No significant abnormality. LUNGS / PLEURA: Patchy parenchymal disease in the right lung base is new. Minimal left basilar subseg mental atelectasis is stable. No definite pleural effusion. No pneumothorax. ADDITIONAL FINDINGS: No significant additional findings. IMPRESSION: Patchy parenchymal disease in the right lung base is new and may be related to pneumonia or atelectasis. Signer Name: Bradford Benoit MD Signed: 06/15/2019 1:25 PM Workstation Name: [id number]
[2019-06-15 13:31] LABS: Albumin 3.3 g/dL (3.9-5); Calcium 8.6 mg/dL (8.4-10.2)
[2019-06-15] MEDS ORDERED: SODIUM CHLORIDE 0.9% 1000 ML 1,000 ML ONE ×2 (14:41→17:42)
--- NOTE | 2019-06-15 14:50 | Emergency Department Report ---
ED General Adult HPI - General Chief complaint: Altered Mental Status Stated complaint: SEPSIS Time Seen by Provider: 06/15/19 14:48 Source: patient, RN notes reviewed, old records reviewed Mode of arrival: Stretcher Limitations: Physical Limitation, Other (patient is a poor historian) - History of Present Illness Initial comments: This is a 58-year-old gentleman. The patient is not known to this provider previously. He presents from a local senior care facility. Past medical history includes stroke, deficits, a fascia, neurogenic bladder, chronic Slade catheter, COPD, type 2 diabetes, hypertension, remote alcohol abuse, sepsis, Escherichia coli urinary tract infection The patient is sent to the ER by his senior care for evaluation for possible sepsis. The patient's is altered at this time. The patient does not endorse any complaints at this time. In the emergency room, he is found to be tachycardic, hypotensive. The nursing team changed out the patient's Slade catheter, at which point, upon placement of a new Slade catheter, 1900 mL of cloudy puslike urine were obtained. Patient also found to have evidence of right-sided pneumonia. The patient is awake, but does not follow commands, and is unable to exacerbating or relieving factors. He is not able to describe the quality of nature of his symptoms. He is not able to describe radiation. His last known well time is not known. -: unknown Severity scale (0 -10): 0 Quality: other Consistency: other Improves with: other Worsens with: other - Related Data Home Medications Medication Instructions Recorded Confirmed Last Taken AtorvaSTATin [Lipitor] 40 mg FEEDTUBE QHS 06/21/16 04/01/19 06/20/16 Ascorbic Acid [Vitamin C] 500 mg FEEDTUBE QDAY 07/14/18 04/01/19 Unknown Aspirin [Adult Aspirin Regimen] 81 mg FEEDTUBE DAILY 07/14/18 04/01/19 Unknown Ipratropium/Albuterol Sulfate 1 ampul IH Q6HR 07/14/18 04/01/19 Unknown [DUONEB *Not for PRN Use*] Multivitamin [Multiple Vitamins] 1 each FEEDTUBE DAILY 07/14/18 04/01/19 Unknown Protein Supplement [Promod] 30 ml FEEDTUBE Q8H 07/14/18 04/01/19 Unknown Acetaminophen [Acetaminophen TAB] 650 mg FEEDTUBE Q4HR PRN 11/11/18 04/01/19 Unknown Gabapentin [Neurontin] 300 mg FEEDTUBE BID 11/11/18 04/01/19 Unknown L. Acidophilus/L.bulgaricus 1 each FEEDTUBE QAM 11/11/18 04/01/19 Unknown [Lactobacillus Tablet] guaiFENesin DM [Robitussin Dm] 10 ml FEEDTUBE Q6HR PRN 11/11/18 04/01/19 Unknown Previous Rx's Medication Instructions Recorded Last Taken Type PANTOPRAZOLE SODIUM (nf) [Protonix 40 mg PO DAILY 30 Days granpkt. 01/06/19 Unknown Rx GRANULES] cefUROXime [Ceftin] 2 tab PO Q12H #8 tablet 04/05/19 Unknown Rx Allergies Allergy/AdvReac Type Severity Reaction Status Date / Time No Known Allergies Allergy Verified 02/27/15 00:48 ED Review of Systems ROS: Stated complaint: SEPSIS Other details as noted in HPI Comment: Unobtainable due to pts medical conditions ED Past Medical Hx - Past Medical History Previous Medical History?: Yes Hx Hypertension: Yes Hx CVA: Yes Hx Congestive Heart Failure: No (unknown) Hx Diabetes: Yes Hx Renal Disease: No (EBTHEL, resolved) Hx Asthma: No (unknown) Hx COPD: Yes Hx HIV: No - Surgical History Past Surgical History?: Yes Additional Surgical History: bree - Social History Smoking Status: Never Smoker Substance Use Type: None - Medications Home Medications: Home Medications Medication Instructions Recorded Confirmed Last Taken Type AtorvaSTATin [Lipitor] 40 mg FEEDTUBE QHS 06/21/16 04/01/19 06/20/16 History Ascorbic Acid [Vitamin C] 500 mg FEEDTUBE QDAY 07/14/18 04/01/19 Unknown History Aspirin [Adult Aspirin Regimen] 81 mg FEEDTUBE DAILY 07/14/18 04/01/19 Unknown History Ipratropium/Albuterol Sulfate 1 ampul IH Q6HR 07/14/18 04/01/19 Unknown History [DUONEB *Not for PRN Use*] Multivitamin [Multiple Vitamins] 1 each FEEDTUBE DAILY 07/14/18 04/01/19 Unknown History Protein Supplement [Promod] 30 ml FEEDTUBE Q8H 07/14/18 04/01/19 Unknown History Acetaminophen [Acetaminophen TAB] 650 mg FEEDTUBE Q4HR PRN 11/11/18 04/01/19 Unknown History Gabapentin [Neurontin] 300 mg FEEDTUBE BID 11/11/18 04/01/19 Unknown History L. Acidophilus/L.bulgaricus 1 each FEEDTUBE QAM 11/11/18 04/01/19 Unknown History [Lactobacillus Tablet] guaiFENesin DM [Robitussin Dm] 10 ml FEEDTUBE Q6HR PRN 11/11/18 04/01/19 Unknown History PANTOPRAZOLE SODIUM (nf) [Protonix 40 mg PO DAILY 30 Days granpkt. 01/06/19 04/01/19 Unknown Rx GRANULES] cefUROXime [Ceftin] 2 tab PO Q12H #8 tablet 04/05/19 Unknown Rx ED Physical Exam - General Limitations: Physical Limitation General appearance: lethargic, in distress - Eye Eye exam: Present: PERRL - ENT ENT exam: Present: mucous membranes dry - Neck Neck exam: Absent: tenderness, meningismus - Respiratory Respiratory exam: Present: respiratory distress, rhonchi - Cardiovascular Cardiovascular Exam: Present: normal rhythm, tachycardia, normal heart sounds. Absent: bradycardia - GI/Abdominal GI/Abdominal exam: Present: soft. Absent: distended, tenderness, guarding, r ebound, rigid, normal bowel sounds, pulsatile mass - Rectal Rectal exam: Present: normal inspection, normal rectal tone, other (chaperoned by MOISES Davey) - exam: Present: normal inspection, other (slade catch in place) - Extremities Exam Extremities exam: Present: other (2+ pulses noted in the bilateral upper, lower extremities. Compartments soft. No long bony tenderness. The pelvis is stable.). Absent: tenderness, pedal edema, joint swelling, calf tenderness - Back Exam Back exam: Absent: tenderness, CVA tenderness (R), CVA tenderness (L), paraspinal tenderness, vertebral tenderness - Neurological Exam Neurological exam: Present: altered, other (is no facial droop noted. Gag reflex is intact. Patient moves 4 extremities and responds to painful stimuli.) - Psychiatric Psychiatric exam: Present: flat affect - Skin Skin exam: Present: dry, other (there is a feeding tube in place in the mid abdominal region, with no redness, pus or streaking) ED Course Vital Signs 06/15/19 06/15/19 06/15/19 12:53 13:05 14:07 Temperature 98.9 F Pulse Rate 118 H 112 H Pulse Rate [ Intra-Procedure ] Pulse Rate [ Post-Procedure] Pulse Rate [Pre -Procedure] Respiratory 16 12 14 Rate Respiratory Rate [Intra- Procedure] Respiratory Rate [Post- Procedure] Respiratory Rate [Pre- Procedure] Blood Pressure 102/60 Blood Pressure [Intra- Procedure] Blood Pressure 102/60 [Left] Blood Pressure [Post-Procedure ] Blood Pressure [Pre-Procedure] O2 Sat by Pulse 100 91 95 Oximetry O2 Sat by Pulse Oximetry [ Intra-Procedure ] O2 Sat by Pulse Oximetry [Post -Procedure] O2 Sat by Pulse Oximetry [Pre- Procedure] 06/15/19 06/15/19 06/15/19 14:20 14:31 14:34 Temperature 99.0 F Pulse Rate 107 H 110 H Pulse Rate [ Intra-Procedure ] Pulse Rate [ Post-Procedure] Pulse Rate [Pre -Procedure] Respiratory 23 24 Rate Respiratory Rate [Intra- Procedure] Respiratory Rate [Post- Procedure] Respiratory Rate [Pre- Procedure] Blood Pressure 92/60 Blood Pressure [Intra- Procedure] Blood Pressure 87/63 [Left] Blood Pressure [Post-Procedure ] Blood Pressure [Pre-Procedure] O2 Sat by Pulse 95 Oximetry O2 Sat by Pulse Oximetry [ Intra-Procedure ] O2 Sat by Pulse Oximetry [Post -Procedure] O2 Sat by Pulse Oximetry [Pre- Procedure] 06/15/19 06/15/19 06/15/19 14:42 14:45 15:00 Temperature Pulse Rate 104 H 105 H 99 H Pulse Rate [ Intra-Procedure ] Pulse Rate [ Post-Procedure] Pulse Rate [Pre -Procedure] Respiratory 28 H 38 H 25 H Rate Respiratory Rate [Intra- Procedure] Respiratory Rate [Post- Procedure] Respiratory Rate [Pre- Procedure] Blood Pressure 87/54 86/49 Blood Pressure [Intra- Procedure] Blood Pressure 93/54 [Left] Blood Pressure [Post-Procedure ] Blood Pressure [Pre-Procedure] O2 Sat by Pulse 91 Oximetry O2 Sat by Pulse Oximetry [ Intra-Procedure ] O2 Sat by Pulse Oximetry [Post -Procedure] O2 Sat by Pulse Oximetry [Pre- Procedure] 06/15/19 06/15/19 06/15/19 15:15 15:31 15:45 Temperature Pulse Rate 99 H 106 H 104 H Pulse Rate [ Intra-Procedure ] Pulse Rate [ Post-Procedure] Pulse Rate [Pre -Procedure] Respiratory 15 23 21 Rate Respiratory Rate [Intra- Procedure] Respiratory Rate [Post- Procedure] Respiratory Rate [Pre- Procedure] Blood Pressure 85/48 70/46 88/51 Blood Pressure [Intra- Procedure] Blood Pressure [Left] Blood Pressure [Post-Procedure ] Blood Pressure [Pre-Procedure] O2 Sat by Pulse 94 92 95 Oximetry O2 Sat by Pulse Oximetry [ Intra-Procedure ] O2 Sat by Pulse Oximetry [Post -Procedure] O2 Sat by Pulse Oximetry [Pre- Procedure] 06/15/19 06/15/19 06/15/19 16:00 16:01 16:10 Temperature Pulse Rate 98 H Pulse Rate [ 99 H Intra-Procedure ] Pulse Rate [ Post-Procedure] Pulse Rate [Pre 101 H -Procedure] Respiratory 21 Rate Respiratory 18 Rate [Intra- Procedure] Respiratory Rate [Post- Procedure] Respiratory 25 H Rate [Pre- Procedure] Blood Pressure 89/57 Blood Pressure 91/54 [Intra- Procedure] Blood Pressure [Left] Blood Pressure [Post-Procedure ] Blood Pressure 84/57 [Pre-Procedure] O2 Sat by Pulse 94 Oximetry O2 Sat by Pulse 97 Oximetry [ Intra-Procedure ] O2 Sat by Pulse Oximetry [Post -Procedure] O2 Sat by Pulse 94 Oximetry [Pre- Procedure] 06/15/19 06/15/19 06/15/19 16:15 16:25 16:30 Temperature Pulse Rate 99 H 109 H Pulse Rate [ 104 H Intra-Procedure ] Pulse Rate [ 112 H Post-Procedure] Pulse Rate [Pre -Procedure] Respiratory 31 H 34 H Rate Respiratory 30 H Rate [Intra- Procedure] Respiratory 26 H Rate [Post- Procedure] Respiratory Rate [Pre- Procedure] Blood Pressure 84/56 95/50 Blood Pressure 84/56 [Intra- Procedure] Blood Pressure [Left] Blood Pressure 94/54 [Post-Procedure ] Blood Pressure [Pre-Procedure] O2 Sat by Pulse 98 88 Oximetry O2 Sat by Pulse 97 Oximetry [ Intra-Procedure ] O2 Sat by Pulse 94 Oximetry [Post -Procedure] O2 Sat by Pulse Oximetry [Pre- Procedure] 06/15/19 06/15/19 16:45 17:01 Temperature Pulse Rate Pulse Rate [ Intra-Procedure ] Pulse Rate [ Post-Procedure] Pulse Rate [Pre -Procedure] Respiratory 29 H 19 Rate Respiratory Rate [Intra- Procedure] Respiratory Rate [Post- Procedure] Respiratory Rate [Pre- Procedure] Blood Pressure 103/53 104/59 Blood Pressure [Intra- Procedure] Blood Pressure [Left] Blood Pressure [Post-Procedure ] Blood Pressure [Pre-Procedure] O2 Sat by Pulse 93 95 Oximetry O2 Sat by Pulse Oximetry [ Intra-Procedure ] O2 Sat by Pulse Oximetry [Post -Procedure] O2 Sat by Pulse Oximetry [Pre- Procedure] - Central Line Placement Right IJ Consent Obtained: emergent situation Time Out Performed: Yes Patient Placed on Monitor/Pulse Ox: Yes MD Prep: mask, gown, gloves Central Line Prep: Chlorhexidine scrub Local Anesthesia Used: Lidocaine 1%, with Epi Amount of Anesthesia Used (mls): 6 Ultrasound Used for Placement: Yes Central Line Lumen Inserted: triple Bloods Obtained for Lab: No Central Line Position: good blood return, all ports aspirated, flus, sutured in place with 2-0 Dressing Applied: Tegaderm Post Procedure X-Ray: tip of catheter in good p Patient Tolerated Procedure: well Complications: none Additional Comments: Patient presents with sepsis, very difficult IV placement, 22-gauge IV placed in the right upper extremity by nursing team. Patient somewhat shocky, poor mental status at this time, hypotensive and tachycardic. Blood pressure in the 70s. Patient is emergently and administratively consented by myself for central line placement. Landmarks are identified using visual expansion and ultrasound guidance, and a triple-lumen catheter is placed using ultrasound guidance with no difficulty or obvious complications. The patient tolerated the procedure well. ED Medical Decision Making - Lab Data Result diagrams: 06/15/19 12:57 06/15/19 12:57 Vital Signs 06/15/19 06/15/19 12:53 13:05 Temperature 98.9 F Pulse Rate 118 H 112 H Respiratory 16 12 Rate Blood Pressure 102/60 Blood Pressure 102/60 [Left] O2 Sat by Pulse 100 91 Oximetry Lab Results 06/15/19 06/15/19 06/15/19 Range/Units 12:57 12:57 12:57 WBC 11.7 H (4.5-11.0) K/mm3 RBC 4.56 (3.65-5.03) M/mm3 Hgb 13.1 (11.8-15.2) gm/dl Hct 41.2 (35.5-45.6) % MCV 90 (84-94) fl MCH 29 (28-32) pg MCHC 32 (32-34) % RDW 15.2 (13.2-15.2) % Plt Count 124 L (140-440) K/mm3 Lymph % (Auto) 3.4 L (13.4-35.0) % Long % (Auto) 7.0 (0.0-7.3) % Eos % (Auto) 0.0 (0.0-4.3) % Baso % (Auto) 0.4 (0.0-1.8) % Lymph # 0.4 L (1.2-5.4) K/mm3 Long # 0.8 (0.0-0.8) K/mm3 Eos # 0.0 (0.0-0.4) K/mm3 Baso # 0.0 (0.0-0.1) K/mm3 Seg Neutrophils % 89.2 H (40.0-70.0) % Seg Neutrophils # 10.5 H (1.8-7.7) K/mm3 PT 13.8 (12.2-14.9) Sec. INR 1.09 (0.87-1.13) VBG pH (7.320-7.420) Sodium 141 (137-145) mmol/L Potassium 4.8 (3.6-5.0) mmol/L Chloride 100.6 (98-107) mmol/L Carbon Dioxide 28 (22-30) mmol/L Anion Gap 17 mmol/L BUN 88 H (9-20) mg/dL Creatinine 1.6 H (0.8-1.5) mg/dL Estimated GFR 44 ml/min BUN/Creatinine Ratio 55 % Glucose 152 H (75-100) mg/dL Lactic Acid (0.7-2.0) mmol/L Calcium 8.6 (8.4-10.2) mg/dL Total Bilirubin 0.30 (0.1-1.2) mg/dL AST 17 (5-40) units/L ALT 13 (7-56) units/L Alkaline Phosphatase 78 (35-129) units/L Total Protein 6.8 (6.3-8.2) g/dL Albumin 3.3 L (3.9-5) g/dL Albumin/Globulin Ratio 0.9 % 06/15/19 06/15/19 Range/Units 12:57 12:57 WBC (4.5-11.0) K/mm3 RBC (3.65-5.03) M/mm3 Hgb (11.8-15.2) gm/dl Hct (35.5-45.6) % MCV (84-94) fl MCH (28-32) pg MCHC (32-34) % RDW (13.2-15.2) % Plt Count (140-440) K/mm3 Lymph % (Auto) (13.4-35.0) % Long % (Auto) (0.0-7.3) % Eos % (Auto) (0.0-4.3) % Baso % (Auto) (0.0-1.8) % Lymph # (1.2-5.4) K/mm3 Long # (0.0-0.8) K/mm3 Eos # (0.0-0.4) K/mm3 Baso # (0.0-0.1) K/mm3 Seg Neutrophils % (40.0-70.0) % Seg Neutrophils # (1.8-7.7) K/mm3 PT (12.2-14.9) Sec. INR (0.87-1.13) VBG pH 7.409 (7.320-7.420) Sodium (137-145) mmol/L Potassium (3.6-5.0) mmol/L Chloride (98-107) mmol/L Carbon Dioxide (22-30) mmol/L Anion Gap mmol/L BUN (9-20) mg/dL Creatinine (0.8-1.5) mg/dL Estimated GFR ml/min BUN/Creatinine Ratio % Glucose (75-100) mg/dL Lactic Acid 1.50 (0.7-2.0) mmol/L Calcium (8.4-10.2) mg/dL Total Bilirubin (0.1-1.2) mg/dL AST (5-40) units/L ALT (7-56) units/L Alkaline Phosphatase (35-129) units/L Total Protein (6.3-8.2) g/dL Albumin (3.9-5) g/dL Albumin/Globulin Ratio % - EKG Data -: EKG Interpreted by Fl EKG shows normal: sinus rhythm Rate: tachycardia - EKG Data 06/15/19 18:08 This EKG is low voltage, sinus tachycardia, 114 bpm, left axis deviation, QTC is prolonged, borderline atrial enlargement, this EKG is abnormal, the EKG is not consistent with ST elevation myocardial infarction. - Radiology Data Radiology results: pending, report reviewed, image reviewed Print Report Referring Physician: WIL ARAGON Patient Name: ANGELO ADORNO Date of : 1960 Sex: Male Report Date: 2019-06-15 Report Status: Finalized Findings [address] [address] XRay Report Signed Patient: ANGELO ADORNO MR#: [id number] : 1960 Acct:[id number] Age/Sex: 58 / M ADM Date: 06/15/19 Loc: ED Attending Dr: Ordering Physician: WIL ARAGON MD Date of Service: 06/15/19 Procedure(s): XR chest 1V ap Accession Number(s): [id number] cc: ED MD MAHESH Fluoro Time In Minutes: CHEST 1 VIEW 1:08 PM INDICATION / CLINICAL INFORMATION: Possible sepsis. COMPARISON: 04/01/2019. FINDINGS: SUPPORT DEVICES: None. HEART / MEDIASTINUM: No significant abnormality. LUNGS / PLEURA: Patchy parenchymal disease in the right lung base is new. Minimal left basilar subsegmental atelectasis is stable. No definite pleural effusion. No pneumothorax. ADDITIONAL FINDINGS: No significant additional findings. IMPRESSION: Patchy parenchymal disease in the right lung base is new and may be related to pneumonia or atelectasis. Signer Name: Bradford Benoit MD Signed: 06/15/2019 1:25 PM Workstation Name: [id number] Transcribed By: RT Dictated By: Bradford Benoit MD Electronically Authenticated By: Bradford Benoit MD Signed Date/Time: 06/15/19 1325 Print Report Referring Physician: SHIRA BARTLETT Patient Name: ANGELO ADORNO Date of : 1960 Sex: Male Report Date: 2019-06-15 Report Status: Finalized Findings [address] [address] XRay Report Signed Patient: ANGELO ADORNO MR#: [id number] : 1960 Acct:[id number] Age/Sex: 58 / M ADM Date: 06/15/19 Loc: 3A A366-[address]: MARIA TERESA IRWIN MD Ordering Physician: SHIRA BARTLETT MD Date of Service: 06/15/19 Procedure(s): XR chest 1V ap Accession Number(s): [id number] cc: SHIRA BARTLETT MD Fluoro Time In Minutes: CHEST 1 VIEW 4:17 PM Eastern INDICATION: s/p central line insertion. COMPARISON: Earlier today FINDINGS: Support devices: Right IJ catheter tip projects over the SVC in expected position. Heart: Stable. Lungs/Pleura: There is no pneumothorax. Bilateral pulmonary opacities have slightly worsened. Small effusions are noted. IMPRESSION: 1. No complications are seen after right IJ placement. 2. Pulmonary opacities and effusions are slightly worsened. Signer Name: Jan Knight MD Signed: 06/15/2019 5:12 PM Workstation Name: [id number] Transcribed By: AMADA Dictated By: Jan Knight MD Electronically Authenticated By: Jan Knight MD Signed Date/Time: 06/15/19 1712 - Medical Decision Making Differential diagnosis, including not limited to: Septic shock, secondary to urinary tract infection, pneumonia Assessment and plan: 58-year-old gentleman with evidence of pneumonia, urinary tract infection, shocky, requires placement of central line, initiation of norepinephrine therapy, protecting airway at this time. Case is presented to [facility] physician, Dr. Daquan Irwin, who has accepted the patient to his service. He states he will get in touch with critical care team to arrange placement into the intensive care unit. Critical Care Time: Yes Critical care time in (mins) excluding proc time.: 60 Critical care attestation.: If time is entered above; I have spent that time in minutes in the direct care of this critically ill patient, excluding procedure time. ED Disposition Clinical Impression: Renal insufficiency, Altered mental status, UTI (urinary tract infection), Septic shock Disposition: OP ADMIT IP TO THIS HOSP Is pt being admited?: Yes Condition: Critical
[2019-06-15] MEDS ORDERED: SODIUM CHLORIDE 0.9% 1000 ML 1,000 ML IV ONE (14:56)
[2019-06-15] MEDS ORDERED: SODIUM CHLORIDE 0.9% 1000 ML IV SOLN IV ONE (15:02)
[2019-06-15] MEDS ORDERED: VANCOMYCIN 1,500 MG in SODIUM CHLORIDE 0.9% 500 ML 500 ML IV ONE (15:02)
[2019-06-15] MEDS ORDERED: LIDOCAINE (1%) 10 MG/1 ML VIAL 20 ML MDV ONE (15:36)
[2019-06-15] MEDS ORDERED: LIDOCAINE 2%/EPINEPHRINE 1:200,000 VIAL (20 ML) INFILTRATI ONE (15:41)
[2019-06-15] MEDS ORDERED: VANCOMYCIN PHARMACY TO DOSE IV SCH (16:00)
[2019-06-15] MEDS ORDERED: LIDOCAINE (1%) 10 MG/1 ML VIAL 20 ML MDV INFILTRATI ONE (16:12)
[2019-06-15 16:14] LABS: Bacteria,Urine 4+ /HPF (Negative); Bilirubin,Urine NEG (Negative); Blood,Urine SM (Negative); Color,Urine Yellow (Yellow); Mucus,Urine 3+ /HPF; Urobilinogen,Urine < 2.0 mg/dL (<2.0)
[2019-06-15 16:19] LABS: WBC,Urine > 182.0 /HPF (0.0-6.0)
[2019-06-15] MEDS ORDERED: SODIUM CHLORIDE 0.9% 500 ML 500 ML ONE ×2 (16:53→18:57)
--- NOTE | 2019-06-15 17:17 | XRay Report ---
CHEST 1 VIEW 4:17 PM Eastern INDICATION: s/p central line insertion. COMPARISON: Earlier today FINDINGS: Support devices: Right IJ catheter tip projects over the SVC in expected position. Heart: Stable. Lungs/Pleura: There is no pneumothorax. Bilateral pulmonary opacities have slightly worsened. Small e ffusions are noted. IMPRESSION: 1. No complications are seen after right IJ placement. 2. Pulmonary opacities and effusions are slightly worsened. Signer Name: Jan Knight MD Signed: 06/15/2019 5:12 PM Workstation Name: [id number]
[2019-06-15] MEDS: SODIUM CHLORIDE 0.9% 1000 ML 1,000 ML IV SCH (17:43)
[2019-06-15] MEDS ORDERED: NORepinephrine/NS 4 MG-250 ML 4 MG/250 ML BAG IV ONE (18:07)
[2019-06-15] MEDS: NORepinephrine/NS 4 MG-250 ML 4 MG/250 ML BAG IV SCH (18:50)
[2019-06-15] MEDS ORDERED: guaiFENesin DM 200/20 MG ORAL LIQD 10 ML FEEDTUBE PRN (21:55)
[2019-06-15] MEDS ORDERED: ACETAMINOPHEN 325 MG TAB FEEDTUBE PRN (21:55)
[2019-06-15] MEDS ORDERED: PROTEIN SUPPLEMENT FEEDTUBE SCH (22:00)
--- NOTE | 2019-06-15 22:06 | History and Physical Report ---
History of Present Illness Date of examination: 06/15/19 Date of admission: 06/15/19 15:05 Chief complaint: Altered sensorium for 1 day History of present illness: 58-year-old -[place] male with history of cerebrovascular accident in the past neurogenic bladder hyperlipidemia GERD peripheral neuropathy and COPD comes in for altered sensorium. Patient sent by the correction for altered sensorium. Patient also has a low-grade fever. Patient's Tijer[place] catheter was changed in the emergency room which drained 1900 mL of cloudy puslike urine. Blood pressure also trended low while in the emergency room. Patient lethargic. Past Medical History Previous Medical History?: Yes Hypertension: Yes CVA: Yes Diabetes: Yes Hyperlipidemia Peripheral neuropathy COPD GERD Surgical History Past Surgical History?: Yes Peg tube Social History Smoking Status: Never Smoker Substance Use Type: None Family history Htn Medications Home Medications: Home Medications Medication Instructions Recorded Confirmed Last Taken Type AtorvaSTATin [Lipitor] 40 mg FEEDTUBE QHS 06/21/16 04/01/19 06/20/16 History Ascorbic Acid [Vitamin C] 500 mg FEEDTUBE QDAY 07/14/18 04/01/19 Unknown History Aspirin [Adult Aspirin Regimen] 81 mg FEEDTUBE DAILY 07/14/18 04/01/19 Unknown History Ipratropium/Albuterol Sulfate 1 ampul IH Q6HR 07/14/18 04/01/19 Unknown History [DUONEB *Not for PRN Use*] Multivitamin [Multiple Vitamins] 1 each FEEDTUBE DAILY 07/14/18 04/01/19 Unknown History Protein Supplement [Promod] 30 ml FEEDTUBE Q8H 07/14/18 04/01/19 Unknown History Acetaminophen [Acetaminophen TAB] 650 mg FEEDTUBE Q4HR PRN 11/11/18 04/01/19 U nknown History Gabapentin [Neurontin] 300 mg FEEDTUBE BID 11/11/18 04/01/19 Unknown History L. Acidophilus/L.bulgaricus 1 each FEEDTUBE QAM 11/11/18 04/01/19 Unknown History [Lactobacillus Tablet] guaiFENesin DM [Robitussin Dm] 10 ml FEEDTUBE Q6HR PRN 11/11/18 04/01/19 Unknown History PANTOPRAZOLE SODIUM (nf) [Protonix 40 mg PO DAILY 30 Days armani. 01/06/19 04/01/19 Unknown Rx GRANULES] cefUROXime [Ceftin] 2 tab PO Q12H #8 tablet 04/05/19 Unknown Rx Review of Systems ROS: Altered mental status Review of systems could not be done Stated complaint: SEPSIS Other details as noted in HPI Comment: Unobtainable due to pts medical conditions Medications and Allergies Allergies Allergy/AdvReac Type Severity Reaction Status Date / Time No Known Allergies Allergy Verified 02/27/15 00:48 Home Medications Medication Instructions Recorded Confirmed Last Taken Type AtorvaSTATin [Lipitor] 40 mg FEEDTUBE QHS 06/21/16 06/15/19 06/15/19 History Ascorbic Acid [Vitamin C] 500 mg FEEDTUBE QDAY 07/14/18 06/15/19 06/15/19 History Aspirin [Adult Aspirin Regimen] 81 mg FEEDTUBE DAILY 07/14/18 06/15/19 06/15/19 History Ipratropium/Albuterol Sulfate 1 ampul IH Q6HR 07/14/18 06/15/19 06/15/19 History [DUONEB *Not for PRN Use*] Multivitamin [Multiple Vitamins] 1 each FEEDTUBE DAILY 07/14/18 06/15/19 06/15/19 History Protein Supplement [Promod] 30 ml FEEDTUBE Q8H 07/14/18 06/15/19 06/15/19 History Acetaminophen [Acetaminophen TAB] 650 mg FEEDTUBE Q4HR PRN 11/11/18 06/15/19 06/15/19 History Gabapentin [Neurontin] 300 mg FEEDTUBE BID 11/11/18 06/15/19 06/15/19 History L. Acidophilus/L.bulgaricus 1 each FEEDTUBE QAM 11/11/18 06/15/19 11/14/18 History [Lactobacillus Tablet] guaiFENesin DM [Robitussin Dm] 10 ml FEEDTUBE Q6HR PRN 11/11/18 06/15/19 06/15/19 History PANTOPRAZOLE SODIUM (nf) [Protonix 40 mg PO DAILY 30 Days gran 01/06/19 06/15/19 06/15/19 Rx GRANULES] cefUROXime [Ceftin] 2 tab PO Q12H #8 tablet 04/05/19 06/15/19 04/08/19 Rx Pantoprazole [Protonix TAB] 40 mg FEEDTUBE QDAY 06/15/19 06/15/19 06/15/19 History metFORMIN [Glucophage] 500 mg PO BID 06/15/19 06/15/19 06/15/19 History Active Meds: Active Medications Acetaminophen (Tylenol) 650 mg FEEDTUBE Q4HR PRN PRN Reason: Pain Albuterol/Ipratropium (Duoneb *Not For Prn Use*) 1 ampul IH Q6HRT SHIRA Ascorbic Acid (Vitamin C) 500 mg FEEDTUBE QDAY SHIRA Aspirin (Halfprin Ec) 81 mg PO DAILY SHIRA Atorvastatin Calcium (Lipitor) 40 mg FEEDTUBE QHS SHIRA Gabapentin (Neurontin) 300 mg FEEDTUBE BID SHIRA Guaifenesin (Guaifenesin Dm Syrup) 10 ml FEEDTUBE Q6H PRN PRN Reason: Cough Vancomycin HCl 1,250 mg/ (Sodium Chloride) 275 mls @ 166.667 mls/hr IV Q24H SHIRA Sodium Chloride (Nacl 0.9% 1000 Ml) 1,000 mls @ 100 mls/hr IV DIRECT SHIRA Last Admin: 06/15/19 17:43 Dose: 100 mls/hr Documented by: Norepinephrine (Levophed Drip 4 Mg/Ns 250 Ml) 4 mg in 250 mls @ 7.5 mls/hr IV TITR SHIRA; Protocol Last Titration: 06/15/19 19:48 Dose: 4 mcg/min, 15 mls/hr Documented by: Cefepime HCl (Maxipime/Ns 2 Gm/100 Ml) 2 gm in 100 mls @ 200 mls/hr IV Q8HR SHIRA; Protocol Metformin HCl (Glucophage) 500 mg PO BIDDIAB SHIRA Miscellaneous Medication (L. Acidophilus/L.Bulgaricus [Lactobacillus Tablet]) 1 each FEEDTUBE QAM SHIRA Miscellaneous Medication (Multivitamin [Multiple Vitamins]) 1 each FEEDTUBE DAILY [facility] Miscellaneous Medication (Pantoprazole Sodium (Nf)) 40 mg PO DAILY [facility] Miscellaneous Medication (Protein Supplement [Promod]) 30 ml FEEDTUBE Q8H [facility] Exam - Constitutional Vitals: Temp Pulse Resp BP Pulse Ox 99.2 F 98 H 22 89/49 97 06/15/19 18:33 06/15/19 20:45 06/15/19 20:45 06/15/19 20:45 06/15/19 20:45 General appearance: Present: no acute distress, well-nourished - EENT Eyes: Present: PERRL ENT: hearing intact, clear oral mucosa - Neck Neck: Present: supple, normal ROM - Respiratory Respiratory effort: normal Respiratory: bilateral: CTA - Cardiovascular Heart rate: 98 Rhythm: regular Heart Sounds: Present: S1 & S2. Absent: rub, click - Extremities Extremities: no ischemia, pulses intact, pulses symmetrical, No edema Peripheral Pulses: within normal limits - Abdominal General gastrointestinal: Present: soft, non-tender, non-distended, normal bowel sounds, other (PEG tube in place) Localized gastrointestinal: surgical scar: epigastric periumbilical (PEG tube in place) Male genitourinary: Present: normal - Rectal Rectal Exam: deferred - Integumentary Integumentary: Present: clear, warm, dry - Musculoskeletal Musculoskeletal: left sided weakness, generalized weakness - Psychiatric Psychiatric: other (Altered sensorium) - Neurologic Neurologic: CNII-XII intact, focal deficits (left-sided weakness), no moves all extremities - Allied Health Allied health notes reviewed: nursing, case management Results - Labs CBC & Chem 7: 06/15/19 12:57 06/15/19 12:57 Labs: Laboratory Last Values WBC 11.7 K/mm3 (4.5-11.0) H 06/15/19 12:57 RBC 4.56 M/mm3 (3.65-5.03) 06/15/19 12:57 Hgb 13.1 gm/dl (11.8-15.2) 06/15/19 12:57 Hct 41.2 % (35.5-45.6) 06/15/19 12:57 MCV 90 fl (84-94) 06/15/19 12:57 MCH 29 pg (28-32) 06/15/19 12:57 MCHC 32 % (32-34) 06/15/19 12:57 RDW 15.2 % (13.2-15.2) 06/15/19 12:57 Plt Count 124 K/mm3 (140-440) L 06/15/19 12:57 Lymph % (Auto) 3.4 % (13.4-35.0) L 06/15/19 12:57 [place] % (Auto) 7.0 % (0.0-7.3) 06/15/19 12:57 Eos % (Auto) 0.0 % (0.0-4.3) 06/15/19 12:57 Baso % (Auto) 0.4 % (0.0-1.8) 06/15/19 12:57 Lymph # 0.4 K/mm3 (1.2-5.4) L 06/15/19 12:57 [place] # 0.8 K/mm3 (0.0-0.8) 06/15/19 12:57 Eos # 0.0 K/mm3 (0.0-0.4) 06/15/19 12:57 Baso # 0.0 K/mm3 (0.0-0.1) 06/15/19 12:57 Seg Neutrophils % 89.2 % (40.0-70.0) H 06/15/19 12:57 Seg Neutrophils # 10.5 K/mm3 (1.8-7.7) H 06/15/19 12:57 PT 13.8 Sec. (12.2-14.9) 06/15/19 12:57 INR 1.09 (0.87-1.13) 06/15/19 12:57 APTT 31.7 Sec. (24.2-36.6) 06/15/19 12:57 VBG pH 7.409 (7.320-7.420) 06/15/19 12:57 Sodium 141 mmol/L (137-145) 06/15/19 12:57 Potassium 4.8 mmol/L (3.6-5.0) 06/15/19 12:57 Chloride 100.6 mmol/L (98-107) 06/15/19 12:57 Carbon Dioxide 28 mmol/L (22-30) 06/15/19 12:57 17 mmol/L 06/15/19 12:57 BUN 88 mg/dL (9-20) H 06/15/19 12:57 1.6 mg/dL (0.8-1.5) H 06/15/19 12:57 Estimated GFR 44 ml/min 06/15/19 12:57 55 % 06/15/19 12:57 Glucose 152 mg/dL (75-100) H 06/15/19 12:57 POC Glucose 114 (70-105) H 06/15/19 14:17 Lactic Acid 2.50 mmol/L (0.7-2.0) H* 06/15/19 16:30 Calcium 8.6 mg/dL (8.4-10.2) 06/15/19 12:57 Magnesium 2.50 mg/dL (1.7-2.3) H 06/15/19 12:57 0.30 mg/dL (0.1-1.2) 06/15/19 12:57 AST 17 units/L (5-40) 06/15/19 12:57 ALT 13 units/L (7-56) 06/15/19 12:57 78 units/L (35-129) 06/15/19 12:57 37 units/L (55-170) L 06/15/19 12:57 6.8 g/dL (6.3-8.2) 06/15/19 12:57 3.3 g/dL (3.9-5) L 06/15/19 12:57 0.9 % 06/15/19 12:57 Yellow (Yellow) 06/15/19 14:20 Turbid (Clear) 06/15/19 14:20 7.0 (5.0-7.0) 06/15/19 14:20 Ur Specific [place] 1.020 (1.003-1.030) 06/15/19 14:20 100 mg/dl mg/dL (Negative) 06/15/19 14:20 Neg mg/dL (Negative) 06/15/19 14:20 Neg mg/dL (Negative) 06/15/19 14:20 Sm (Negative) 06/15/19 14:20 Neg (Negative) 06/15/19 14:20 Neg (Negative) 06/15/19 14:20 < 2.0 mg/dL (<2.0) 06/15/19 14:20 Ur Leukocyte Esterase Mod (Negative) 06/15/19 14:20 > 182.0 /HPF (0.0-6.0) H 06/15/19 14:20 24.0 /HPF (0.0-6.0) 06/15/19 14:20 4+ /HPF (Negative) 06/15/19 14:20 3+ /HPF 06/15/19 14:20 3+ /HPF 06/15/19 14:20 1+ /HPF 06/15/19 14:20 Short CBC 06/15/19 Range/Units 12:57 WBC 11.7 H (4.5-11.0) K/mm3 Hgb 13.1 (11.8-15.2) gm/dl Hct 41.2 (35.5-45.6) % Plt Count 124 L (140-440) K/mm3 [facility] 06/15/19 12:57 Sodium 141 Potassium 4.8 Chloride 100.6 Carbon Dioxide 28 BUN 88 H Creatinine 1.6 H Glucose 152 H Calcium 8.6 Cardiac Enzymes 06/15/19 Range/Units 12:57 Total Creatine Kinase 37 L (55-170) units/L Liver Function 06/15/19 Range/Units 12:57 Total Bilirubin 0.30 (0.1-1.2) mg/dL AST 17 (5-40) units/L ALT 13 (7-56) units/L Alkaline Phosphatase 78 (35-129) units/L Albumin 3.3 L (3.9-5) g/dL Urine 06/15/19 Range/Units 14:20 Urine Color Yellow (Yellow) Urine pH 7.0 (5.0-7.0) Ur Specific [place] 1.020 (1.003-1.030) Urine Protein 100 mg/dl (Negative) mg/dL Urine Glucose (UA) Neg (Negative) mg/dL Short CBC 06/15/19 Range/Units 12:57 WBC 11.7 H (4.5-11.0) K/mm3 Hgb 13.1 (11.8-15.2) gm/dl Hct 41.2 (35.5-45.6) % Plt Count 124 L (140-440) K/mm3 [facility] 06/15/19 12:57 Sodium 141 Potassium 4.8 Chloride 100.6 Carbon Dioxide 28 BUN 88 H Creatinine 1.6 H Glucose 152 H Calcium 8.6 Cardiac Enzymes 06/15/19 Range/Units 12:57 Total Creatine Kinase 37 L (55-170) units/L Liver Function 06/15/19 Range/Units 12:57 Total Bilirubin 0.30 (0.1-1.2) mg/dL AST 17 (5-40) units/L ALT 13 (7-56) units/L Alkaline Phosphatase 78 (35-129) units/L Albumin 3.3 L (3.9-5) g/dL Urine 06/15/19 Range/Units 14:20 Urine Color Yellow (Yellow) Urine pH 7.0 (5.0-7.0) Ur Specific [place] 1.020 (1.003-1.030) Urine Protein 100 mg/dl (Negative) mg/dL Urine Glucose (UA) Neg (Negative) mg/dL Short CBC 06/15/19 Range/Units 12:57 WBC 11.7 H (4.5-11.0) K/mm3 Hgb 13.1 (11.8-15.2) gm/dl Hct 41.2 (35.5-45.6) % Plt Count 124 L (140-440) K/mm3 BMP 06/15/19 12:57 Sodium 141 Potassium 4.8 Chloride 100.6 Carbon Dioxide 28 BUN 88 H Creatinine 1.6 H Glucose 152 H Calcium 8.6 Cardiac Enzymes 06/15/19 Range/Units 12:57 Total Creatine Kinase 37 L (55-170) units/L Liver Function 06/15/19 Range/Units 12:57 Total Bilirubin 0.30 (0.1-1.2) mg/dL AST 17 (5-40) units/L ALT 13 (7-56) units/L Alkaline Phosphatase 78 (35-129) units/L Albumin 3.3 L (3.9-5) g/dL Urine 06/15/19 Range/Units 14:20 Urine Color Yellow (Yellow) Urine pH 7.0 (5.0-7.0) Ur Specific [place] 1.020 (1.003-1.030) Urine Protein 100 mg/dl (Negative) mg/dL Urine Glucose (UA) Neg (Negative) mg/dL - Imaging and Cardiology EKG: report reviewed (sinus tachycardia heart rate of 114/minute) Chest x-ray: report reviewed Imaging and Cardiology: Chest x-ray IMPRESSION: Patchy parenchymal disease in the right lung base is new and may be related to pneumonia or atelectasis. Chest x-ray #2 IMPRESSION: 1. No complications are seen after right IJ placement. 2. Pulmonary opacities and effusions are slightly worsened. Assessment and Plan Advance Directives: Yes (full code) VTE prophylaxis?: Chemical Plan of care discussed with patient/family: Yes - Patient Problems (1) Septic shock Current Visit: Yes Status: Acute Plan to address problem: Patient is septic shock secondary to right lower lobe pneumonia and urinary tract infection Patient on IV fluids and IV Levophed Patient initiated on IV cefepime and IV vancomycin (2) Right lower lobe pneumonia Current Visit: Yes Status: Acute Qualifiers: Pneumonia type: aspiration pneumonia Plan to address problem: Possible aspiration Patient initiated on IV cefepime and IV vancomycin for broad-spectrum coverage (3) UTI (urinary tract infection) Current Visit: Yes Status: Acute Qualifiers: Urinary tract infection type: acute cystitis Plan to address problem: Patient is indwelling Tijerina catheter Tijerina catheter exchange Pending urinary cultures patient initiated on IV cefepime and IV vancomycin (4) Acute kidney injury Current Visit: No Status: Acute Plan to address problem: IV fluids for now (5) CVA, old, dysphagia Current Visit: Yes Status: Chronic Plan to address problem: Patient with PEG tube (6) PEG (percutaneous endoscopic gastrostomy) status Current Visit: No Status: Chronic Plan to address problem: Continue PEG tube feedings (7) GERD (gastroesophageal reflux disease) Current Visit: Yes Status: Chronic Qualifiers: Esophagitis presence: without esophagitis Qualified Code(s): K21.9 - Gastro-esophageal reflux disease without esophagitis Plan to address problem: Continue PPIs (8) Hyperglycemia Current Visit: Yes Status: Acute Plan to address problem: Coverage for now (9) COPD (chronic obstructive pulmonary disease) Current Visit: Yes Status: Chronic Qualifiers: Emphysema type: unspecified Plan to address problem: Continue duo nebs (10) DVT prophylaxis Current Visit: Yes Status: Acute Plan to address problem: Heparin 5000 every 12 hours and GI prophylaxis
[2019-06-15] MEDS ORDERED: CEFEPIME/NS 2 GM/100 ML 2 GM/100 ML BAG IV ONE (22:34)
[2019-06-15] MEDS: ASPIRIN EC 81 MG TAB PO SCH (22:37)
[2019-06-15] MEDS: metFORMIN 500 MG TAB PO SCH (22:37)
[2019-06-15] MEDS: CEFEPIME/NS 2 GM/100 ML 2 GM/100 ML BAG IV SCH (22:37)
[2019-06-16] MEDS ORDERED: IPRATROPIUM/ALBUTEROL SULFATE 3 ML AMPUL.NEB IH SCH
[2019-06-16] MEDS: SODIUM CHLORIDE 0.9% 1000 ML 1,000 ML IV SCH ×5 (00:58→13:29)
[2019-06-16] MEDS: IPRATROPIUM/ALBUTEROL SULFATE 3 ML AMPUL.NEB IH SCH ×4 (01:52→20:02)
[2019-06-16] MEDS: ASCORBIC ACID 500 MG TAB FEEDTUBE SCH ×2 (03:05→11:28)
[2019-06-16] MEDS: INSULIN LISPRO 100 UNIT/ML SUB-Q SCH ×3 (03:06→13:31)
[2019-06-16] MEDS: HEPARIN 5,000 UNIT/1 ML VIAL SUB-Q SCH ×3 (03:07→22:55)
[2019-06-16] MEDS ORDERED: DEXTROSE 50% IN WATER (25GM) 50 ML SYRINGE IV PRN (06:21)
[2019-06-16] MEDS ORDERED: ACETAMINOPHEN 325 MG/10.15 ML ORAL LIQD UNIT DOSE FEEDTUBE PRN (07:00)
[2019-06-16] MEDS: GABAPENTIN 500 MG/10 ML ORAL LIQD FEEDTUBE SCH ×3 (08:01→22:54)
[2019-06-16] MEDS: metFORMIN 500 MG TAB PO SCH ×3 (08:02→17:52)
[2019-06-16] MEDS: NORepinephrine/NS 4 MG-250 ML 4 MG/250 ML BAG IV SCH (08:37)
[2019-06-16] MEDS ORDERED: D5W/0.9% NACL 1,000 ML IV SCH (10:00)
[2019-06-16 11:27] LABS: Eosinophils % (Auto) 0.4 % (0.0-4.3); Monocytes # (Auto) 0.4 K/mm3 (0.0-0.8)
[2019-06-16] MEDS: CEFEPIME/NS 2 GM/100 ML 2 GM/100 ML BAG IV SCH ×2 (11:27→22:54)
[2019-06-16] MEDS: MULTIVITAMINS 5 ML ORAL LIQUID FEEDTUBE SCH (11:28)
[2019-06-16] MEDS: ASPIRIN EC 81 MG TAB PO SCH (11:28)
[2019-06-16] MEDS: LANSOPRAZOLE 30 MG SOLUTAB FEEDTUBE SCH (11:28)
[2019-06-16 11:45] LABS: BUN/Creatinine Ratio 64; Blood Urea Nitrogen 32 mg/dL (9-20); Calcium 7.6 mg/dL (8.4-10.2); Hemolysis Index 9
[2019-06-16] MEDS: FLORANEX GRANULE PACKET FEEDTUBE SCH (11:46)
--- NOTE | 2019-06-16 11:53 | Consultation ---
History of Present Illness Consult date: 06/16/19 Requesting physician: DARION MAHMOOD Reason for consult: hypoxemia, other (sepsis with shock) History of present illness: 58 y/o male from senior living admitted with hypotension and sepsis. Was transferred from nursing facility with altered mental state. In ED found to be hypotensive, right IJ placed, started on broad spec abx and pressors and admitted to the unit. This am after boluses, pressors down to 4 mcgs. Had acute respiratory failure but has since been weaned to room air. Alert and oriented. No distress. Past History Past Medical History: hyperlipidemia, other (some form of obstructive lung disease) Medications and Allergies Allergies Allergy/AdvReac Type Severity Reaction Status Date / Time No Known Allergies Allergy Verified 02/27/15 00:48 Home Medications Medication Instructions Recorded Confirmed Last Taken Type AtorvaSTATin [Lipitor] 40 mg FEEDTUBE QHS 06/21/16 06/15/19 06/15/19 History Ascorbic Acid [Vitamin C] 500 mg FEEDTUBE QDAY 07/14/18 06/15/19 06/15/19 History Aspirin [Adult Aspirin Regimen] 81 mg FEEDTUBE DAILY 07/14/18 06/15/19 06/15/19 History Ipratropium/Albuterol Sulfate 1 ampul IH Q6HR 07/14/18 06/15/19 06/15/19 History [DUONEB *Not for PRN Use*] Multivitamin [Multiple Vitamins] 1 each FEEDTUBE DAILY 07/14/18 06/15/1906/15 History Protein Supplement [Promod] 30 ml FEEDTUBE Q8H 07/14/18 06/15/19 06/15/19 History Acetaminophen [Acetaminophen TAB] 650 mg FEEDTUBE Q4HR PRN 11/11/18 06/15/19 06/15/19 History Gabapentin [Neurontin] 300 mg FEEDTUBE BID 11/11/18 06/15/19 06/15/19 History L. Acidophilus/L.bulgaricus 1 each FEEDTUBE QAM 11/11/18 06/15/19 11/14/18 History [Lactobacillus Tablet] guaiFENesin DM [Robitussin Dm] 10 ml FEEDTUBE Q6HR PRN 11/11/18 06/15/19 06/15/19 History PANTOPRAZOLE SODIUM (nf) [Protonix 40 mg PO DAILY 30 Days 01/06/19 06/15/19 06/15/19 Rx GRANULES] cefUROXime [Ceftin] 2 tab PO Q12H #8 tablet 04/05/19 06/15/19 04/08/19 Rx Pantoprazole [Protonix TAB] 40 mg FEEDTUBE QDAY 06/15/19 06/15/19 06/15/19 History metFORMIN [Glucophage] 500 mg PO BID 06/15/19 06/15/19 06/15/19 History Active Meds: Active Medications Acetaminophen (Tylenol) 650 mg FEEDTUBE Q4HR PRN PRN Reason: Pain Albuterol/Ipratropium (Duoneb *Not For Prn Use*) 1 ampul IH Q6HRT [facility] Last Admin: 06/16/19 08:10 Dose: 1 ampul Documented by: Ascorbic Acid (Vitamin C) 500 mg FEEDTUBE QDAY [facility] Last Admin: 06/16/19 11:28 Dose: 500 mg Documented by: Aspirin (Halfprin Ec) 81 mg PO DAILY [facility] Last Admin: 06/16/19 11:28 Dose: 81 mg Documented by: Atorvastatin Calcium (Lipitor) 40 mg FEEDTUBE QHS [facility] Last Admin: 06/16/19 03:04 Dose: 40 mg Documented by: Dextrose (D50w (25gm) Syringe) 25 ml IV PRN PRN PRN Reason: Hypoglycemia Last Admin: 06/16/19 06:53 Dose: 25 ml Documented by: Gabapentin (Neurontin) 300 mg FEEDTUBE BID [facility] Last Admin: 06/16/19 11:46 Dose: 300 mg Documented by: Guaifenesin (Guaifenesin Dm Syrup) 10 ml FEEDTUBE Q6H PRN PRN Reason: Cough Heparin Sodium (Porcine) (Heparin) 5,000 unit SUB-Q Q12HR [facility] Last Admin: 06/16/19 03:07 Dose: 5,000 unit Documented by: Vancomycin HCl 1,250 mg/ (Sodium Chloride) 275 mls @ 166.667 mls/hr IV Q24H SHIRA Norepinephrine (Levophed Drip 4 Mg/Ns 250 Ml) 4 mg in 250 mls @ 7.5 mls/hr IV TITR SHIRA; Protocol Last Titration: 06/16/19 11:43 Dose: 2 mcg/min, 7.5 mls/hr Documented by: Cefepime HCl (Maxipime/Ns 2 Gm/100 Ml) 2 gm in 100 mls @ 200 mls/hr IV Q12HR SHIRA; Protocol Last Admin: 06/16/19 11:27 Dose: 200 mls/hr Documented by: Dextrose/Sodium Chloride (D5ns) 1,000 mls @ 75 mls/hr IV DIRECT SHIRA Last Admin: 06/16/19 11:37 Dose: 75 mls/hr Documented by: Sodium Chloride (Nacl 0.9% 1000 Ml) 1,000 mls @ 0 mls/hr IV ONCE SHIRA Stop: 06/17/19 10:32 Last Admin: 06/16/19 11:38 Dose: 999 mls/hr Documented by: Insulin Human Lispro (Humalog) 0 unit SUB-Q Q6HR SHIRA; Protocol Last Admin: 06/16/19 06:22 Dose: Not Given Documented by: Lactobacillus Acidophilus (Floranex) 1 each FEEDTUBE QAM [facility] Last Admin: 06/16/19 11:46 Dose: 1 each Documented by: Lansoprazole (Prevacid Solutab) 30 mg FEEDTUBE QDAY [facility] Last Admin: 06/16/19 11:28 Dose: 30 mg Documented by: Metformin HCl (Glucophage) 500 mg PO BIDDIAB [facility] Last Admin: 06/16/19 08:02 Dose: Not Given Documented by: Multivitamins (Centrum Liq) 5 ml FEEDTUBE DAILY [facility] Last Admin: 06/16/19 11:28 Dose: 5 ml Documented by: Review of Systems All systems: negative Physical Examination Vital signs: Vital Signs Temp Pulse Resp BP Pulse Ox 98.9 F 118 H 16 102/60 100 06/15/19 12:53 06/15/19 12:53 06/15/19 12:53 06/15/19 12:53 06/15/19 12:53 General appearance: no acute distress, alert Eyes: non-icteric Neck: supple Effort: normal Ascultation: Bilateral: rales (bibasilar) Percussion: Bilateral: not dull Cardiovascular: regular rate and rhythm Gastrointestinal: normoactive bowel sounds, soft, other (peg in place) Results - Laboratory Findings CBC and BMP: 06/15/19 12:57 06/16/19 11:06 PT/INR, D-dimer PT 13.8 Sec. (12.2-14.9) 06/15/19 12:57 INR 1.09 (0.87-1.13) 06/15/19 12:57 Abnormal lab findings: Abnormal Labs 06/15/19 06/15/19 06/15/19 12:57 12:57 12:57 WBC 11.7 H Plt Count 124 L Lymph % (Auto) 3.4 L Lymph # 0.4 L Seg Neutrophils % 89.2 H Seg Neutrophils # 10.5 H Sodium Chloride BUN 88 H Creatinine 1.6 H Glucose 152 H POC Glucose Lactic Acid Calcium Magnesium 2.50 H Total Creatine Kinase 37 L Albumin 3.3 L Urine WBC (Auto) 06/15/19 06/15/19 06/15/19 14:17 14:20 16:30 WBC Plt Count Lymph % (Auto) Lymph # Seg Neutrophils % Seg Neutrophils # Sodium Chloride BUN Creatinine Glucose POC Glucose 114 H Lactic Acid 2.50 H* Calcium Magnesium Total Creatine Kinase Albumin Urine WBC (Auto) > 182.0 H 06/15/19 06/15/19 06/16/19 23:32 23:50 03:38 WBC Plt Count Lymph % (Auto) Lymph # Seg Neutrophils % Seg Neutrophils # Sodium Chloride BUN Creatinine Glucose POC Glucose 67 L 67 L Lactic Acid 0.60 L Calcium Magnesium Total Creatine Kinase Albumin Urine WBC (Auto) 06/16/19 06/16/19 06/16/19 05:58 11:06 11:06 WBC Plt Count Lymph % (Auto) Lymph # Seg Neutrophils % 86.9 H Seg Neutrophils # Sodium 147 H Chloride 113.7 H BUN 32 H Creatinine Glucose 121 H POC Glucose 61 L Lactic Acid Calcium 7.6 L Magnesium Total Creatine Kinase Albumin Urine WBC (Auto) - Diagnostic Findings Chest x-ray: image reviewed (bilateral aleveolar filling process/air space disease.) Assessment and Plan 58 y/o male with sepsis and septic shock, likely from indwelling slade catheter secondary to neurogenic bladder. 1. More fluid boluses 2. Wean pressors for MAPS 65 and greater 3. Broad speck abx 4. Wean FiO2 for sats >88% 5. Follow up urine culture CCT 31 minutes.
[2019-06-16 12:16] LABS: Hemoglobin TNR gm/dl (11.8-15.2); Red Blood Count TNR M/mm3 (3.65-5.03)
[2019-06-16 12:17] LABS: Hematocrit TNR % (35.5-45.6); Mean Corpuscular HGB Conc TNR % (32-34); Mean Corpuscular Volume TNR fl (84-94); Platelet Count TNR K/mm3 (140-440); Red Cell Distribution Width TNR % (13.2-15.2)
[2019-06-16 12:18] LABS: Basophils % (Auto) TNR % (0.0-1.8); Lymphocytes % (Auto) TNR % (13.4-35.0)
[2019-06-16 12:19] LABS: Lymphocytes # (Auto) TNR K/mm3 (1.2-5.4)
[2019-06-16] MEDS ORDERED: SODIUM BICARBONATE 325 MG TAB FEEDTUBE PRN ×2 (13:00→13:55)
[2019-06-16] MEDS ORDERED: LIPASE 10,500/PROTEASE 25,000/AMYLASE 43,750 (UNITS) DR CAP FEEDTUBE PRN ×2 (13:00→13:55)
[2019-06-16] MEDS ORDERED: SIMPLE SYRUP 15 ML FEEDTUBE PRN ×4 (13:00→13:55)
--- NOTE | 2019-06-16 13:47 | Progress Note ---
Assessment and Plan / Septic shock Patient is septic shock secondary to right lower lobe pneumonia and urinary tract infection Patient on IV fluids and IV Levophed Patient initiated on IV cefepime and IV vancomycin CC consulted / Right lower lobe pneumonia Possible aspiration Patient initiated on IV cefepime and IV vancomycin for broad-spectrum coverage / UTI (urinary tract infection) Patient is indwelling [place] catheter [place] catheter exchanged Pending urinary cultures patient initiated on IV cefepime and IV vancomycin / Acute kidney injury likely from dehydration and septic shock IV fluids for now / CVA, old, dysphagia Patient with PEG tube, speech cleared for pureed diet Monitor oeal intake - if poor need to be on TF / PEG (percutaneous endoscopic gastrostomy) status Continue PEG tube feedings if oral intake is poor / GERD (gastroesophageal reflux disease) Continue PPIs / Hyperglycemia SSI Coverage for now / COPD (chronic obstructive pulmonary disease) Continue duo nebs, supplemental O2 / DVT prophylaxis Heparin 5000 every 12 hours and GI prophylaxis The high probability of a clinically significant, sudden or life threatening deterioration of the [multiple] system(s) required my full and direct attention, intervention and personal management. The aggregate critical care time was [32] minutes. This time is in addition to time spent performing reported procedures but includes the following: [x] Data Review and interpretation [x] Patient assessment and monitoring of vital signs [x] Documentation [x] Medication orders and management Brief history: 58-year-old -[place] male with history of cerebrovascular accident in the past neurogenic bladder hyperlipidemia GERD peripheral neuropathy and COPD sent by the [facility] for altered sensorium. Patient also has a low-grade fever. Patient's [place] catheter was changed in the emergency room which drained 1900 mL of cloudy puslike urine. Blood pressure also trended low while in the emergency room. Patient lethargic. work up suggested right lung PNA and UTI with septic shock. Subjective Date of service: 06/16/19 Interval history: Patient seen and examined lying on bed, no acute issue on levophed, speech recommended pureed diet patient denies any complaint, no family at bedside Objective - Constitutional Vitals: Vital Signs - 12hr 06/16/19 06/16/19 06/16/19 01:51 01:53 02:00 Temperature Pulse Rate 78 80 Pulse Rate [ 75 Bilateral Throughout] Pulse Rate [ From Monitor] Respiratory 18 17 Rate Respiratory 22 Rate [Bilateral Throughout] Blood Pressure 92/54 90/55 O2 Sat by Pulse 99 100 Oximetry 06/16/19 06/16/19 06/16/19 02:11 02:21 02:30 Temperature Pulse Rate 76 76 77 Pulse Rate [ Bilateral Throughout] Pulse Rate [ From Monitor] Respiratory 18 16 24 Rate Respiratory Rate [Bilateral Throughout] Blood Pressure 90/55 87/54 89/50 O2 Sat by Pulse 99 100 100 Oximetry 06/16/19 06/16/19 06/16/19 02:41 02:51 03:00 Temperature Pulse Rate 80 78 79 Pulse Rate [ Bilateral Throughout] Pulse Rate [ From Monitor] Respiratory 14 15 15 Rate Respiratory Rate [Bilateral Throughout] Blood Pressure 94/56 99/60 98/61 O2 Sat by Pulse 100 100 100 Oximetry 06/16/19 06/16/19 06/16/19 03:11 03:18 03:21 Temperature Pulse Rate 80 78 Pulse Rate [ Bilateral Throughout] Pulse Rate [ 82 From Monitor] Respiratory 19 21 17 Rate Respiratory Rate [Bilateral Throughout] Blood Pressure 98/61 82/52 O2 Sat by Pulse 99 98 99 Oximetry 06/16/19 06/16/19 06/16/19 03:30 03:41 03:51 Temperature Pulse Rate 81 72 73 Pulse Rate [ Bilateral Throughout] Pulse Rate [ From Monitor] Respiratory 14 15 18 Rate Respiratory Rate [Bilateral Throughout] Blood Pressure 108/60 108/60 81/49 O2 Sat by Pulse 98 99 99 Oximetry 06/16/19 06/16/19 06/16/19 04:00 04:11 04:16 Temperature 97.9 F Pulse Rate 70 73 Pulse Rate [ Bilateral Throughout] Pulse Rate [ From Monitor] Respiratory 15 13 Rate Respiratory Rate [Bilateral Throughout] Blood Pressure 86/53 86/53 O2 Sat by Pulse 100 100 Oximetry 06/16/19 06/16/19 06/16/19 04:21 04:27 04:30 Temperature Pulse Rate 83 72 80 Pulse Rate [ Bilateral Throughout] Pulse Rate [ From Monitor] Respiratory 20 16 Rate Respiratory Rate [Bilateral Throughout] Blood Pressure 84/54 93/60 O2 Sat by Pulse 100 100 Oximetry 06/16/19 06/16/19 06/16/19 04:41 04:51 05:00 Temperature Pulse Rate 78 82 80 Pulse Rate [ Bilateral Throughout] Pulse Rate [ From Monitor] Respiratory 19 16 19 Rate Respiratory Rate [Bilateral Throughout] Blood Pressure 93/60 96/59 96/61 O2 Sat by Pulse 100 99 100 Oximetry 06/16/19 06/16/19 06/16/19 05:11 05:21 05:30 Temperature Pulse Rate 72 71 70 Pulse Rate [ Bilateral Throughout] Pulse Rate [ From Monitor] Respiratory 17 12 14 Rate Respiratory Rate [Bilateral Throughout] Blood Pressure 96/61 94/55 91/54 O2 Sat by Pulse 96 95 97 Oximetry 06/16/19 06/16/19 06/16/19 05:41 05:51 06:00 Temperature Pulse Rate 72 90 78 Pulse Rate [ Bilateral Throughout] Pulse Rate [ From Monitor] Respiratory 10 L 20 18 Rate Respiratory Rate [Bilateral Throughout] Blood Pressure 91/54 97/57 99/62 O2 Sat by Pulse 100 100 98 Oximetry 06/16/19 06/16/19 06/16/19 06:11 06:21 06:30 Temperature Pulse Rate 74 76 80 Pulse Rate [ Bilateral Throughout] Pulse Rate [ From Monitor] Respiratory 15 18 15 Rate Respiratory Rate [Bilateral Throughout] Blood Pressure 91/54 100/60 98/62 O2 Sat by Pulse 98 99 98 Oximetry 06/16/19 06/16/19 06/16/19 06:41 06:51 07:00 Temperature Pulse Rate 75 76 75 Pulse Rate [ Bilateral Throughout] Pulse Rate [ From Monitor] Respiratory 17 16 18 Rate Respiratory Rate [Bilateral Throughout] Blood Pressure 98/62 95/60 91/55 O2 Sat by Pulse 99 99 97 Oximetry 06/16/19 06/16/19 06/16/19 07:11 07:18 07:21 Temperature Pulse Rate 68 76 Pulse Rate [ Bilateral Throughout] Pulse Rate [ 72 From Monitor] Respiratory 11 L 16 16 Rate Respiratory Rate [Bilateral Throughout] Blood Pressure 91/55 92/61 O2 Sat by Pulse 97 97 98 Oximetry 06/16/19 06/16/19 06/16/19 07:30 07:41 07:51 Temperature Pulse Rate 65 68 73 Pulse Rate [ Bilateral Throughout] Pulse Rate [ From Monitor] Respiratory 16 16 22 Rate Respiratory Rate [Bilateral Throughout] Blood Pressure 81/51 91/55 84/54 O2 Sat by Pulse 98 98 93 Oximetry 06/16/19 06/16/19 06/16/19 08:00 08:11 08:15 Temperature 97.9 F Pulse Rate 70 77 Pulse Rate [ 76 Bilateral Throughout] Pulse Rate [ From Monitor] Respiratory 17 14 Rate Respiratory 20 Rate [Bilateral Throughout] Blood Pressure 91/59 91/59 O2 Sat by Pulse 97 100 100 Oximetry 06/16/19 06/16/19 06/16/19 08:21 08:30 08:41 Temperature Pulse Rate 71 72 74 Pulse Rate [ Bilateral Throughout] Pulse Rate [ From Monitor] Respiratory 14 10 L 19 Rate Respiratory Rate [Bilateral Throughout] Blood Pressure 101/61 100/61 100/61 O2 Sat by Pulse 100 100 99 Oximetry 06/16/19 06/16/19 06/16/19 08:51 09:00 09:11 Temperature Pulse Rate 71 71 70 Pulse Rate [ Bilateral Throughout] Pulse Rate [ From Monitor] Respiratory 20 17 20 Rate Respiratory Rate [Bilateral Throughout] Blood Pressure 101/65 98/61 98/61 O2 Sat by Pulse 100 100 100 Oximetry 06/16/19 06/16/19 06/16/19 09:21 09:30 09:41 Temperature Pulse Rate 72 71 75 Pulse Rate [ Bilateral Throughout] Pulse Rate [ From Monitor] Respiratory 14 14 20 Rate Respiratory Rate [Bilateral Throughout] Blood Pressure 100/64 101/62 101/62 O2 Sat by Pulse 97 94 97 Oximetry 06/16/19 06/16/19 06/16/19 09:51 10:00 10:11 Temperature Pulse Rate 84 72 70 Pulse Rate [ Bilateral Throughout] Pulse Rate [ From Monitor] Respiratory 14 12 14 Rate Respiratory Rate [Bilateral Throughout] Blood Pressure 104/65 100/62 100/62 O2 Sat by Pulse 94 95 96 Oximetry 06/16/19 06/16/19 06/16/19 10:21 10:30 10:41 Temperature Pulse Rate 67 76 67 Pulse Rate [ Bilateral Throughout] Pulse Rate [ From Monitor] Respiratory 14 13 14 Rate Respiratory Rate [Bilateral Throughout] Blood Pressure 99/61 107/67 107/67 O2 Sat by Pulse 96 97 100 Oximetry 06/16/19 06/16/19 06/16/19 10:51 11:00 11:11 Temperature Pulse Rate 67 73 69 Pulse Rate [ Bilateral Throughout] Pulse Rate [ From Monitor] Respiratory 13 15 16 Rate Respiratory Rate [Bilateral Throughout] Blood Pressure 100/61 102/66 102/66 O2 Sat by Pulse 99 95 96 Oximetry 06/16/19 06/16/19 06/16/19 11:18 11:21 11:30 Temperature Pulse Rate 77 69 Pulse Rate [ Bilateral Throughout] Pulse Rate [ 75 From Monitor] Respiratory 16 17 14 Rate Respiratory Rate [Bilateral Throughout] Blood Pressure 103/63 108/67 O2 Sat by Pulse 96 98 97 Oximetry 06/16/19 06/16/19 06/16/19 11:41 11:51 12:00 Temperature 97.7 F Pulse Rate 83 76 75 Pulse Rate [ Bilateral Throughout] Pulse Rate [ From Monitor] Respiratory 18 13 21 Rate Respiratory Rate [Bilateral Throughout] Blood Pressure 103/63 101/59 99/62 O2 Sat by Pulse 95 96 96 Oximetry 06/16/19 06/16/19 06/16/19 12:11 12:21 12:30 Temperature Pulse Rate 77 77 74 Pulse Rate [ Bilateral Throughout] Pulse Rate [ From Monitor] Respiratory 17 13 14 Rate Respiratory Rate [Bilateral Throughout] Blood Pressure 101/59 101/60 95/59 O2 Sat by Pulse 94 96 96 Oximetry 06/16/19 06/16/19 06/16/19 12:41 12:51 13:00 Temperature Pulse Rate 74 75 71 Pulse Rate [ Bilateral Throughout] Pulse Rate [ From Monitor] Respiratory 18 14 13 Rate Respiratory Rate [Bilateral Throughout] Blood Pressure 95/59 94/60 95/61 O2 Sat by Pulse 97 98 98 Oximetry 06/16/19 06/16/19 06/16/19 13:11 13:21 13:30 Temperature Pulse Rate 86 82 80 Pulse Rate [ Bilateral Throughout] Pulse Rate [ From Monitor] Respiratory 25 H 16 15 Rate Respiratory Rate [Bilateral Throughout] Blood Pressure 95/61 104/68 96/58 O2 Sat by Pulse 96 96 94 Oximetry 06/16/19 13:41 Temperature Pulse Rate 81 Pulse Rate [ Bilateral Throughout] Pulse Rate [ From Monitor] Respiratory 13 Rate Respiratory Rate [Bilateral Throughout] Blood Pressure 96/58 O2 Sat by Pulse 94 Oximetry General appearance: Present: no acute distress, other (elderly) - EENT Eyes: PERRL, EOM intact ENT: hearing intact, clear oral mucosa Ears: bilateral: normal - Neck Neck: supple, normal ROM - Respiratory Respiratory effort: normal Respiratory: bilateral: CTA - Cardiovascular Rhythm: regular Heart Sounds: Present: S1 & S2. Absent: gallop, rub Extremities: pulses intact, No edema, normal color - Gastrointestinal General gastrointestinal: Present: soft, non-tender, non-distended, normal bowel sounds - Integumentary Integumentary: clear, warm, dry - Musculoskeletal Musculoskeletal: right sided weakness - Neurologic Neurologic: other (right sided hameparesis with UE contracture) - Psychiatric Psychiatric: no intact judgment & insight, no memory intact, cooperative - Labs CBC & Chem 7: 06/16/19 16:03 06/16/19 11:06 Labs: Abnormal lab results 06/15/19 06/15/19 06/15/19 Range/Units 12:57 14:17 14:20 Seg Neutrophils % (40.0-70.0) % Sodium (137-145) mmol/L Potassium (3.6-5.0) mmol/L Chloride (98-107) mmol/L BUN (9-20) mg/dL Creatinine (0.8-1.5) mg/dL Glucose (75-100) mg/dL POC Glucose 114 H (70-105) Lactic Acid (0.7-2.0) mmol/L Calcium (8.4-10.2) mg/dL Magnesium 2.50 H (1.7-2.3) mg/dL Total Creatine Kinase 37 L (55-170) units/L Urine WBC (Auto) > 182.0 H (0.0-6.0) /HPF 06/15/19 06/15/19 06/15/19 Range/Units 16:30 23:32 23:50 Seg Neutrophils % (40.0-70.0) % Sodium (137-145) mmol/L Potassium (3.6-5.0) mmol/L Chloride (98-107) mmol/L BUN (9-20) mg/dL Creatinine (0.8-1.5) mg/dL Glucose (75-100) mg/dL POC Glucose 67 L (70-105) Lactic Acid 2.50 H* 0.60 L (0.7-2.0) mmol/L Calcium (8.4-10.2) mg/dL Magnesium (1.7-2.3) mg/dL Total Creatine Kinase (55-170) units/L Urine WBC (Auto) (0.0-6.0) /HPF 06/16/19 06/16/19 06/16/19 Range/Units 03:38 05:58 11:06 Seg Neutrophils % 86.9 H (40.0-70.0) % Sodium (137-145) mmol/L Potassium (3.6-5.0) mmol/L Chloride (98-107) mmol/L BUN (9-20) mg/dL Creatinine (0.8-1.5) mg/dL Glucose (75-100) mg/dL POC Glucose 67 L 61 L (70-105) Lactic Acid (0.7-2.0) mmol/L Calcium (8.4-10.2) mg/dL Magnesium (1.7-2.3) mg/dL Total Creatine Kinase (55-170) units/L Urine WBC (Auto) (0.0-6.0) /HPF 06/16/19 Range/Units 11:06 Seg Neutrophils % (40.0-70.0) % Sodium 147 H (137-145) mmol/L Potassium 3.5 L D (3.6-5.0) mmol/L Chloride 113.7 H (98-107) mmol/L BUN 32 H (9-20) mg/dL Creatinine 0.5 L D (0.8-1.5) mg/dL Glucose 121 H (75-100) mg/dL POC Glucose (70-105) Lactic Acid (0.7-2.0) mmol/L Calcium 7.6 L (8.4-10.2) mg/dL Magnesium (1.7-2.3) mg/dL Total Creatine Kinase (55-170) units/L Urine WBC (Auto) (0.0-6.0) /HPF
[2019-06-16] MEDS ORDERED: VANCOMYCIN 1,250 MG in SODIUM CHLORIDE 0.9% 250ML 250 ML IV SCH (16:00)
[2019-06-16 16:18] LABS: Basophils % (Auto) 0.3 % (0.0-1.8); Eosinophils % (Auto) 1.9 % (0.0-4.3); Hematocrit 34.9 % (35.5-45.6); Hemoglobin 11.2 gm/dl (11.8-15.2); Lymphocytes # (Auto) 0.4 K/mm3 (1.2-5.4); Lymphocytes % (Auto) 16.8 % (13.4-35.0); Mean Corpuscular HGB Conc 32 % (32-34); Mean Corpuscular Volume 92 fl (84-94); Monocytes # (Auto) 0.2 K/mm3 (0.0-0.8); Red Blood Count 3.77 M/mm3 (3.65-5.03); Red Cell Distribution Width 15.4 % (13.2-15.2)
[2019-06-16 17:03] LABS: Platelet Count 67 K/mm3 (140-440)
[2019-06-17] MEDS: IPRATROPIUM/ALBUTEROL SULFATE 3 ML AMPUL.NEB IH SCH ×4 (02:00→21:13)
[2019-06-17] MEDS: INSULIN LISPRO 100 UNIT/ML SUB-Q SCH ×4 (06:10→18:00)
[2019-06-17 08:24] LABS: Hematocrit 32.1 % (35.5-45.6); Hemoglobin 10.5 gm/dl (11.8-15.2); Mean Corpuscular HGB Conc 33 % (32-34); Mean Corpuscular Volume 91 fl (84-94); Red Blood Count 3.53 M/mm3 (3.65-5.03)
[2019-06-17 08:30] LABS: Platelet Count 85 K/mm3 (140-440)
[2019-06-17 08:47] LABS: BUN/Creatinine Ratio 38; Blood Urea Nitrogen 15 mg/dL (9-20); Calcium 7.4 mg/dL (8.4-10.2); Hemolysis Index 6
[2019-06-17] MEDS: metFORMIN 500 MG TAB PO SCH ×2 (08:59→17:28)
[2019-06-17] MEDS: ASPIRIN EC 81 MG TAB PO SCH (10:05)
[2019-06-17] MEDS: MULTIVITAMINS 5 ML ORAL LIQUID FEEDTUBE SCH (10:05)
[2019-06-17] MEDS: LANSOPRAZOLE 30 MG SOLUTAB FEEDTUBE SCH (10:05)
[2019-06-17] MEDS: GABAPENTIN 500 MG/10 ML ORAL LIQD FEEDTUBE SCH ×2 (10:05→23:32)
[2019-06-17] MEDS: ASCORBIC ACID 500 MG TAB FEEDTUBE SCH (10:05)
[2019-06-17] MEDS: HEPARIN 5,000 UNIT/1 ML VIAL SUB-Q SCH ×2 (10:06→22:29)
[2019-06-17] MEDS: CEFEPIME/NS 2 GM/100 ML 2 GM/100 ML BAG IV SCH ×2 (10:07→22:29)
[2019-06-17] MEDS ORDERED: POTASSIUM CHLORIDE 20 MEQ PACKET FEEDTUBE ONE (11:00)
--- NOTE | 2019-06-17 11:20 | Progress Note ---
Assessment and Plan 58 y/o male with sepsis and septic shock, likely from indwelling slade catheter secondary to neurogenic bladder. 1. Broad spec abx 2. Continue tube feeds 3. Follow up urine culture 4. abx per primary team 5. Will transfer to [facility] Date of service: 06/17/19 Interval history: Patient now off levophed, stable. Ready for transfer. Objective Vital Signs - 12hr 06/16/19 06/16/19 06/16/19 23:20 23:30 23:40 Temperature Pulse Rate 84 84 85 Pulse Rate [ Bilateral Throughout] Pulse Rate [ From Monitor] Respiratory 21 14 16 Rate Respiratory Rate [Bilateral Throughout] Respiratory Rate [bree] Blood Pressure 105/55 98/56 98/56 O2 Sat by Pulse 94 93 Oximetry 06/16/19 06/17/19 06/17/19 23:50 00:00 00:10 Temperature Pulse Rate 84 84 88 Pulse Rate [ Bilateral Throughout] Pulse Rate [ From Monitor] Respiratory 11 L 13 15 Rate Respiratory Rate [Bilateral Throughout] Respiratory Rate [bree] Blood Pressure 96/58 102/59 102/59 O2 Sat by Pulse 94 94 94 Oximetry 06/17/19 06/17/19 06/17/19 00:20 00:30 00:40 Temperature Pulse Rate 84 94 H 94 H Pulse Rate [ Bilateral Throughout] Pulse Rate [ From Monitor] Respiratory 20 14 13 Rate Respiratory Rate [Bilateral Throughout] Respiratory Rate [bree] Blood Pressure 102/65 106/53 106/53 O2 Sat by Pulse 94 95 92 Oximetry 06/17/19 06/17/19 06/17/19 00:50 01:00 01:10 Temperature Pulse Rate 88 94 H 89 Pulse Rate [ Bilateral Throughout] Pulse Rate [ From Monitor] Respiratory 24 18 16 Rate Respiratory Rate [Bilateral Throughout] Respiratory Rate [bree] Blood Pressure 107/62 108/59 108/59 O2 Sat by Pulse 95 93 93 Oximetry 06/17/19 06/17/19 06/17/19 01:20 01:30 01:40 Temperature Pulse Rate 88 87 88 Pulse Rate [ Bilateral Throughout] Pulse Rate [ From Monitor] Respiratory 14 23 20 Rate Respiratory Rate [Bilateral Throughout] Respiratory Rate [bree] Blood Pressure 99/58 102/58 102/58 O2 Sat by Pulse 94 94 95 Oximetry 06/17/19 06/17/19 06/17/19 01:50 02:00 02:10 Temperature Pulse Rate 87 90 85 Pulse Rate [ Bilateral Throughout] Pulse Rate [ From Monitor] Respiratory 19 15 16 Rate Respiratory Rate [Bilateral Throughout] Respiratory Rate [bree] Blood Pressure 106/60 106/59 106/59 O2 Sat by Pulse 96 96 95 Oximetry 06/17/19 06/17/19 06/17/19 02:20 02:30 02:40 Temperature Pulse Rate 94 H 92 H 89 Pulse Rate [ Bilateral Throughout] Pulse Rate [ From Monitor] Respiratory 20 16 17 Rate Respiratory Rate [Bilateral Throughout] Respiratory Rate [bree] Blood Pressure 115/55 115/55 49/21 O2 Sat by Pulse 89 94 92 Oximetry 06/17/19 06/17/19 06/17/19 02:50 03:00 03:10 Temperature Pulse Rate 88 87 86 Pulse Rate [ Bilateral Throughout] Pulse Rate [ 93 H From Monitor] Respiratory 17 14 14 Rate Respiratory Rate [Bilateral Throughout] Respiratory Rate [bree] Blood Pressure 93/68 104/69 104/69 O2 Sat by Pulse 92 93 94 Oximetry 06/17/19 06/17/19 06/17/19 03:20 03:30 03:40 Temperature Pulse Rate 86 87 87 Pulse Rate [ Bilateral Throughout] Pulse Rate [ From Monitor] Respiratory 20 16 17 Rate Respiratory Rate [Bilateral Throughout] Respiratory Rate [bree] Blood Pressure 99/71 99/71 88/63 O2 Sat by Pulse 95 95 94 Oximetry 06/17/19 06/17/19 06/17/19 03:48 03:50 04:00 Temperature 98.4 F Pulse Rate 89 85 Pulse Rate [ Bilateral Throughout] Pulse Rate [ From Monitor] Respiratory 14 17 Rate Respiratory Rate [Bilateral Throughout] Respiratory Rate [bree] Blood Pressure 45/13 45/13 O2 Sat by Pulse 94 65 L Oximetry 06/17/19 06/17/19 06/17/19 04:10 04:20 04:30 Temperature Pulse Rate 79 76 87 Pulse Rate [ Bilateral Throughout] Pulse Rate [ From Monitor] Respiratory 13 21 18 Rate Respiratory Rate [Bilateral Throughout] Respiratory Rate [bree] Blood Pressure 47/16 47/16 121/68 O2 Sat by Pulse 90 93 93 Oximetry 06/17/19 06/17/19 06/17/19 04:40 04:50 05:00 Temperature Pulse Rate 87 86 88 Pulse Rate [ Bilateral Throughout] Pulse Rate [ From Monitor] Respiratory 21 18 16 Rate Respiratory Rate [Bilateral Throughout] Respiratory Rate [bree] Blood Pressure 121/68 117/65 115/64 O2 Sat by Pulse 94 95 94 Oximetry 06/17/19 06/17/19 06/17/19 05:10 05:20 05:30 Temperature Pulse Rate 91 H 92 H 89 Pulse Rate [ Bilateral Throughout] Pulse Rate [ From Monitor] Respiratory 17 17 16 Rate Respiratory Rate [Bilateral Throughout] Respiratory Rate [bree] Blood Pressure 115/64 115/68 93/41 O2 Sat by Pulse 94 95 95 Oximetry 06/17/19 06/17/19 06/17/19 05:40 05:50 06:00 Temperature Pulse Rate 88 88 89 Pulse Rate [ Bilateral Throughout] Pulse Rate [ From Monitor] Respiratory 17 13 14 Rate Respiratory Rate [Bilateral Throughout] Respiratory Rate [bree] Blood Pressure 93/41 114/76 98/51 O2 Sat by Pulse 95 96 95 Oximetry 06/17/19 06/17/19 06/17/19 06:10 06:20 06:30 Temperature Pulse Rate 93 H 88 89 Pulse Rate [ Bilateral Throughout] Pulse Rate [ From Monitor] Respiratory 15 19 21 Rate Respiratory Rate [Bilateral Throughout] Respiratory Rate [bree] Blood Pressure 98/51 118/65 120/68 O2 Sat by Pulse 95 94 95 Oximetry 06/17/19 06/17/19 06/17/19 06:40 06:50 07:00 Temperature Pulse Rate 89 84 86 Pulse Rate [ Bilateral Throughout] Pulse Rate [ 88 From Monitor] Respiratory 14 11 L 18 Rate Respiratory Rate [Bilateral Throughout] Respiratory Rate [bree] Blood Pressure 120/68 102/47 118/68 O2 Sat by Pulse 94 95 94 Oximetry 06/17/19 06/17/19 06/17/19 07:10 07:20 07:30 Temperature Pulse Rate 84 87 86 Pulse Rate [ Bilateral Throughout] Pulse Rate [ From Monitor] Respiratory 14 14 14 Rate Respiratory Rate [Bilateral Throughout] Respiratory Rate [bree] Blood Pressure 118/68 113/72 119/67 O2 Sat by Pulse 94 95 94 Oximetry 06/17/19 06/17/19 06/17/19 07:40 07:50 08:00 Temperature 98.0 F Pulse Rate 87 88 91 H Pulse Rate [ Bilateral Throughout] Pulse Rate [ From Monitor] Respiratory 13 18 21 Rate Respiratory Rate [Bilateral Throughout] Respiratory Rate [bree] Blood Pressure 119/67 111/72 117/72 O2 Sat by Pulse 94 94 94 Oximetry 06/17/19 06/17/19 06/17/19 08:10 08:20 08:24 Temperature Pulse Rate 86 86 Pulse Rate [ Bilateral Throughout] Pulse Rate [ From Monitor] Respiratory 14 19 Rate Respiratory Rate [Bilateral Throughout] Respiratory Rate [bree] Blood Pressure 119/67 114/64 O2 Sat by Pulse 95 94 95 Oximetry 06/17/19 06/17/19 06/17/19 08:25 08:30 08:40 Temperature Pulse Rate 85 91 H Pulse Rate [ 88 Bilateral Throughout] Pulse Rate [ From Monitor] Respiratory 16 15 Rate Respiratory 20 Rate [Bilateral Throughout] Respiratory Rate [bree] Blood Pressure 120/76 120/76 O2 Sat by Pulse 94 93 Oximetry 06/17/19 06/17/19 06/17/19 08:50 09:00 09:10 Temperature Pulse Rate 96 H 91 H 91 H Pulse Rate [ Bilateral Throughout] Pulse Rate [ From Monitor] Respiratory 19 15 12 Rate Respiratory Rate [Bilateral Throughout] Respiratory Rate [bree] Blood Pressure 97/51 114/70 114/70 O2 Sat by Pulse 92 93 95 Oximetry 06/17/19 06/17/19 06/17/19 09:20 09:30 09:40 Temperature Pulse Rate 98 H 93 H 94 H Pulse Rate [ Bilateral Throughout] Pulse Rate [ From Monitor] Respiratory 13 19 13 Rate Respiratory Rate [Bilateral Throughout] Respiratory Rate [bree] Blood Pressure 108/76 116/71 116/71 O2 Sat by Pulse 95 94 94 Oximetry 06/17/19 06/17/19 06/17/19 09:50 10:00 10:10 Temperature Pulse Rate 89 93 H 91 H Pulse Rate [ Bilateral Throughout] Pulse Rate [ From Monitor] Respiratory 23 21 18 Rate Respiratory Rate [Bilateral Throughout] Respiratory 21 Rate [bree] Blood Pressure 114/71 120/69 120/69 O2 Sat by Pulse 94 94 96 Oximetry 06/17/19 06/17/19 06/17/19 10:20 10:30 10:40 Temperature Pulse Rate 92 H 93 H 92 H Pulse Rate [ Bilateral Throughout] Pulse Rate [ From Monitor] Respiratory 20 20 16 Rate Respiratory Rate [Bilateral Throughout] Respiratory Rate [bree] Blood Pressure 113/71 112/76 112/76 O2 Sat by Pulse 96 93 95 Oximetry 06/17/19 06/17/19 06/17/19 10:50 11:00 11:10 Temperature Pulse Rate 90 91 H 89 Pulse Rate [ Bilateral Throughout] Pulse Rate [ From Monitor] Respiratory 17 22 20 Rate Respiratory Rate [Bilateral Throughout] Respiratory Rate [bree] Blood Pressure 117/73 103/55 103/55 O2 Sat by Pulse 95 95 94 Oximetry Constitutional: no acute distress, alert Eyes: non-icteric Neck: supple Effort: normal Ascultation: Bilateral: rales (bibasilar) Percussion: Bilateral: not dull Cardiovascular: regular rate and rhythm Gastrointestinal: normoactive bowel sounds, soft, other (peg in place) CBC and BMP: 06/17/19 07:45 06/17/19 07:45 ABG, PT/INR, D-dimer: PT/INR, D-dimer PT 13.8 Sec. (12.2-14.9) 06/15/19 12:57 INR 1.09 (0.87-1.13) 06/15/19 12:57 Abnormal lab findings: Abnormal Labs 06/15/19 06/15/19 06/15/19 12:57 12:57 12:57 WBC 11.7 H RBC Hgb Hct RDW Plt Count 124 L Lymph % (Auto) 3.4 L [place] % (Auto) Lymph # 0.4 L Seg Neutrophils % 89.2 H Seg Neutrophils # 10.5 H Sodium Potassium Chloride BUN 88 H Creatinine 1.6 H Glucose 152 H POC Glucose Lactic Acid Calcium Magnesium 2.50 H Total Creatine Kinase 37 L Albumin 3.3 L Urine WBC (Auto) 06/15/19 06/15/19 06/15/19 14:17 14:20 16:30 WBC RBC Hgb Hct RDW Plt Count Lymph % (Auto) [place] % (Auto) Lymph # Seg Neutrophils % Seg Neutrophils # Sodium Potassium Chloride BUN Creatinine Glucose POC Glucose 114 H Lactic Acid 2.50 H* Calcium Magnesium Total Creatine Kinase Albumin Urine WBC (Auto) > 182.0 H 06/15/19 06/15/19 06/16/19 23:32 23:50 03:38 WBC RBC Hgb Hct RDW Plt Count Lymph % (Auto) [place] % (Auto) Lymph # Seg Neutrophils % Seg Neutrophils # Sodium Potassium Chloride BUN Creatinine Glucose POC Glucose 67 L 67 L Lactic Acid 0.60 L Calcium Magnesium Total Creatine Kinase Albumin Urine WBC (Auto) 06/16/19 06/16/19 06/16/19 05:58 11:06 11:06 WBC RBC Hgb Hct RDW Plt Count Lymph % (Auto) [place] % (Auto) Lymph # Seg Neutrophils % 86.9 H Seg Neutrophils # Sodium 147 H Potassium 3.5 L D Chloride 113.7 H BUN 32 H Creatinine 0.5 L D Glucose 121 H POC Glucose 61 L Lactic Acid Calcium 7.6 L Magnesium Total Creatine Kinase Albumin Urine WBC (Auto) 06/16/19 06/16/19 06/17/19 16:03 17:48 05:40 WBC 2.5 L RBC Hgb 11.2 L Hct 34.9 L D RDW 15.4 H Plt Count 67 L Lymph % (Auto) [place] % (Auto) 10.0 H Lymph # 0.4 L Seg Neutrophils % 71.0 H Seg Neutrophils # Sodium Potassium Chloride BUN Creatinine Glucose POC Glucose 111 H 156 H Lactic Acid Calcium Magnesium Total Creatine Kinase Albumin Urine WBC (Auto) 06/17/19 06/17/19 07:45 07:45 WBC RBC 3.53 L Hgb 10.5 L Hct 32.1 L RDW Plt Count 85 L Lymph % (Auto) [place] % (Auto) Lymph # Seg Neutrophils % Seg Neutrophils # Sodium Potassium 3.3 L Chloride 110.8 H BUN Creatinine 0.4 L Glucose 143 H POC Glucose Lactic Acid Calcium 7.4 L Magnesium Total Creatine Kinase Albumin Urine WBC (Auto)
[2019-06-17] MEDS: FLORANEX GRANULE PACKET FEEDTUBE SCH (12:02)
--- NOTE | 2019-06-17 18:04 | Progress Note ---
Assessment and Plan - Patient Problems (1) Altered mental status Current Visit: Yes Status: Acute Plan to address problem: Multifactorial secondary to sepsis from UTI and pneumonia. (2) Right lower lobe pneumonia Current Visit: Yes Status: Acute Qualifiers: Pneumonia type: aspiration pneumonia Plan to address problem: 2 with pneumonia oxygenating much better. Leukocytosis improving fever curve improving oxygenating better clinically improve we'll transfer to telemetry. (3) Sepsis Current Visit: Yes Status: Acute Plan to address problem: Change to improve clinically. Patient on cefepime and vancomycin. Follow blood culture data. (4) UTI (urinary tract infection) Current Visit: Yes Status: Acute Qualifiers: Urinary tract infection type: acute cystitis (5) CVA, old, dysphagia Current Visit: Yes Status: Chronic Plan to address problem: No CVA nonacute at this time. Still has residual right hemiparesis and poor cognition most likely vascular dementia. (6) DVT prophylaxis Current Visit: No Status: Acute (7) HTN (hypertension) Current Visit: No Status: Acute Qualifiers: Hypertension type: essential hypertension Qualified Code(s): I10 - Essential (primary) hypertension Plan to address problem: Patient blood pressure well-controlled continue present management. History Interval history: Pt is minimally responsive today. Patient will open eyes track in but did not speak. Clinically looks better. Patient is resting comfortably nursing at bedside concerns. oxygenating much better. Hospitalist Physical - Constitutional Vitals: Temp Pulse Resp BP Pulse Ox 97.3 F L 79 22 107/65 99 06/17/19 16:00 06/17/19 17:20 06/17/19 17:20 06/17/19 17:20 06/17/19 17:20 General appearance: Present: no acute distress, other (elderly) - EENT Eyes: Present: PERRL, EOM intact ENT: hearing intact, clear oral mucosa, dentition normal, poor dentition, no oropharyngeal erythema - Neck Neck: Present: supple, normal ROM. Absent: enlarged thyroid, masses or JVD - Respiratory Respiratory: right: diminished, rales, rhonchi - Cardiovascular Rhythm: regular Heart Sounds: Present: S1 & S2 - Extremities Extremities: no ischemia, pulses intact, pulses symmetrical, No edema Peripheral Pulses: within normal limits - Abdominal General gastrointestinal: soft, non-tender, non-distended, hypoactive bowel sounds, no hepatomegaly, no splenomegaly - Psychiatric Psychiatric: other (poor memory focal deficits on right hemiparesis and contracture.) Results - Labs CBC & Chem 7: 06/17/19 07:45 06/17/19 07:45 Labs: Laboratory Last Values WBC 4.5 K/mm3 (4.5-11.0) 06/17/19 07:45 RBC 3.53 M/mm3 (3.65-5.03) L 06/17/19 07:45 Hgb 10.5 gm/dl (11.8-15.2) L 06/17/19 07:45 Hct 32.1 % (35.5-45.6) L 06/17/19 07:45 MCV 91 fl (84-94) 06/17/19 07:45 MCH 30 pg (28-32) 06/17/19 07:45 MCHC 33 % (32-34) 06/17/19 07:45 RDW 15.0 % (13.2-15.2) 06/17/19 07:45 Plt Count 85 K/mm3 (140-440) L 06/17/19 07:45 Lymph % (Auto) 16.8 % (13.4-35.0) 06/16/19 16:03 [place] % (Auto) 10.0 % (0.0-7.3) H 06/16/19 16:03 Eos % (Auto) 1.9 % (0.0-4.3) 06/16/19 16:03 Baso % (Auto) 0.3 % (0.0-1.8) 06/16/19 16:03 Lymph # 0.4 K/mm3 (1.2-5.4) L 06/16/19 16:03 [place] # 0.2 K/mm3 (0.0-0.8) 06/16/19 16:03 Eos # 0.0 K/mm3 (0.0-0.4) 06/16/19 16:03 Baso # 0.0 K/mm3 (0.0-0.1) 06/16/19 16:03 Seg Neutrophils % 71.0 % (40.0-70.0) H 06/16/19 16:03 Seg Neutrophils # 1.8 K/mm3 (1.8-7.7) 06/16/19 16:03 PT 13.8 Sec. (12.2-14.9) 06/15/19 12:57 INR 1.09 (0.87-1.13) 06/15/19 12:57 APTT 31.7 Sec. (24.2-36.6) 06/15/19 12:57 VBG pH 7.409 (7.320-7.420) 06/15/19 12:57 Sodium 143 mmol/L (137-145) 06/17/19 07:45 Potassium 3.3 mmol/L (3.6-5.0) L 06/17/19 07:45 Chloride 110.8 mmol/L (98-107) H 06/17/19 07:45 Carbon Dioxide 23 mmol/L (22-30) 06/17/19 07:45 13 mmol/L 06/17/19 07:45 BUN 15 mg/dL (9-20) 06/17/19 07:45 0.4 mg/dL (0.8-1.5) L 06/17/19 07:45 Estimated GFR > 60 ml/min 06/17/19 07:45 38 % 06/17/19 07:45 Glucose 143 mg/dL (75-100) H 06/17/19 07:45 POC Glucose 97 (70-105) 06/17/19 17:41 Lactic Acid 0.60 mmol/L (0.7-2.0) L 06/15/19 23:50 Calcium 7.4 mg/dL (8.4-10.2) L 06/17/19 07:45 Magnesium 2.50 mg/dL (1.7-2.3) H 06/15/19 12:57 0.30 mg/dL (0.1-1.2) 06/15/19 12:57 AST 17 units/L (5-40) 06/15/19 12:57 ALT 13 units/L (7-56) 06/15/19 12:57 78 units/L (35-129) 06/15/19 12:57 37 units/L (55-170) L 06/15/19 12:57 6.8 g/dL (6.3-8.2) 06/15/19 12:57 3.3 g/dL (3.9-5) L 06/15/19 12:57 0.9 % 06/15/19 12:57 Yellow (Yellow) 06/15/19 14:20 Turbid (Clear) 06/15/19 14:20 7.0 (5.0-7.0) 06/15/19 14:20 Ur Specific [place] 1.020 (1.003-1.030) 06/15/19 14:20 100 mg/dl mg/dL (Negative) 06/15/19 14:20 Neg mg/dL (Negative) 06/15/19 14:20 Neg mg/dL (Negative) 06/15/19 14:20 Sm (Negative) 06/15/19 14:20 Neg (Negative) 06/15/19 14:20 Neg (Negative) 06/15/19 14:20 < 2.0 mg/dL (<2.0) 06/15/19 14:20 Ur Leukocyte Esterase Mod (Negative) 06/15/19 14:20 > 182.0 /HPF (0.0-6.0) H 06/15/19 14:20 24.0 /HPF (0.0-6.0) 06/15/19 14:20 4+ /HPF (Negative) 06/15/19 14:20 3+ /HPF 06/15/19 14:20 3+ /HPF 06/15/19 14:20 1+ /HPF 06/15/19 14:20 - Imaging and Cardiology EKG: report reviewed Chest x-ray: report reviewed Active Medications - Current Medications Current Medications: Generic Name Dose Route Start Last Admin Trade Name Freq PRN Reason Stop Dose Admin Acetaminophen 650 mg 06/16/19 07:00 Tylenol FEEDTUBE Q4HR PRN Pain Albuterol/Ipratropium 1 ampul 06/16/19 02:00 06/17/19 14:41 Duoneb *Not For Prn Use* IH 1 ampul Q6HRT SHIRA Administration Lipase/Protease/Amylase 1 each 06/16/19 13:00 Pancredonovan Lilly 10,500 Unit FEEDTUBE PRN PRN For Clogged Feeding Tube Ascorbic Acid 500 mg 06/15/19 22:00 06/17/19 10:05 Vitamin C FEEDTUBE 500 mg QDAY SHIRA Administration Aspirin 81 mg 06/15/19 22:00 06/17/19 10:05 Halfprin Ec PO 81 mg DAILY SHIRA Administration Atorvastatin Calcium 40 mg 06/15/19 22:00 06/17/19 06:12 Lipitor FEEDTUBE 40 mg QHS SHIRA Administration Dextrose 25 ml 06/16/19 06:21 06/16/19 06:53 D50w (25gm) Syringe IV 25 ml PRN PRN Administration Hypoglycemia Gabapentin 300 mg 06/15/19 22:00 06/17/19 10:05 Neurontin FEEDTUBE 300 mg BID SHIRA Administration Guaifenesin 10 ml 06/15/19 21:55 Guaifenesin Dm Syrup FEEDTUBE Q6H PRN Cough Heparin Sodium (Porcine) 5,000 unit 06/15/19 23:15 06/17/19 10:06 Heparin SUB-Q 5,000 unit Q12HR SHIRA Administration Norepinephrine 4 mg in 250 mls @ 7.5 mls/hr 06/15/19 19:00 06/16/19 12:56 Levophed Drip 4 Mg/Ns 250 Ml IV 0 mcg/min TITR SHIRA 0 mls/hr Titration Protocol 2 MCG/MIN Cefepime HCl 2 gm in 100 mls @ 200 mls/hr 06/15/19 22:00 06/17/19 10:07 Maxipime/Ns 2 Gm/100 Ml IV 06/19/19 23:59 200 mls/hr Q12HR SHIRA Administration Protocol Insulin Human Lispro 0 unit 06/16/19 00:00 06/17/19 12:03 Humalog SUB-Q Not Given Q6HR SHIRA Protocol Lactobacillus Acidophilus 1 each 06/16/19 10:00 06/17/19 12:02 Floranex FEEDTUBE 1 each QAM SHIRA Administration Lansoprazole 30 mg 06/16/19 10:00 06/17/19 10:05 Prevacid Solutab FEEDTUBE 30 mg QDAY SHIRA Administration Metformin HCl 500 mg 06/15/19 22:00 06/17/19 17:28 Glucophage PO 500 mg BIDDIAB SHIRA Administration Multivitamins 5 ml 06/16/19 10:00 06/17/19 10:05 Centrum Liq FEEDTUBE 5 ml DAILY SHIRA Administration Simple Syrup 15 ml 06/16/19 13:00 Simple Syrup FEEDTUBE PRN PRN Hypoglycemia Simple Syrup 30 ml 06/16/19 13:00 Simple Syrup FEEDTUBE PRN PRN Hypoglycemia Sodium Bicarbonate 325 mg 06/16/19 13:00 Sodium Bicarbonate FEEDTUBE PRN PRN For Clogged Feeding Tube Nutrition/Malnutrition Assess - Dietary Evaluation Nutrition/Malnutrition Findings: Nutrition Notes Start: 06/16/19 11:12 Freq: Status: Active Protocol: Document 06/17/19 10:40 LM (Rec: 06/17/19 10:41 LM [email or web address]) Nutrition Notes Initial or Follow up Reassessment Current Diagnosis COPD,Diabetes,Stroke, Hyperlipidemia Other Pertinent Diagnosis peripheral neuropathy, sacral & thigh wound, PEG, dysphagia Current Diet Pureed diet and Glucerna 1.2 at 65 ml/hr Labs/Tests BG 143 K 3.3 Cr 0.4 Pertinent Medications Reviewed Height 5 ft 9 in Weight 72.7 kg [place] Body Weight (kg) 72.72 BMI 23.6 Weight change and time frame Wt change noted. Wt was taken from [facility] today. Subjective/Other Information Per RN pt tolerated TF over night. Pt has not yet eatin breakfast at time of visit. Percent of energy/protein needs met: 46%/54% Burn Absent Trauma Absent Difficulty In Chewing Minimum of two criteria No #2 Nutrition Diagnosis Increased nutrient needs ( specify in comment below) Diagnosis Progress(for reassessment Continues documentation) #1 Nutrition Diagnosis Inadequate oral intake Diagnosis Progress(for reassessment Continues documentation) Is patient on ventilator? No Is Patient Ambulatory and/or Out of Bed No REE-([place]-confined to bed) 1837.740 Kcal/Kg value to use for calculation 28 Approximate Energy Requirements Using 2036 kcal/Kg Calculation Used for Recommendations Kcal/kg Additional Notes Protein: 87-109g (1.2-1.5g/kg) Fluids: 1 ml/kcal Nutrition Intervention Change Diet Order: Continue pureed diet and start cyclic TF Nutrition Support: Glucerna 1.2 at 65 ml/hr Flush 50 ml q4hr Kcal 936 Protein (gm) 47 Fluid (mL) 628 Goal #1 Meet at least 80% of energy and protein needs with pureed diet and TF Goal #2 diet and TF tolerance Anticipated Discharge Needs: pureed diet and TF Follow-Up By: 06/20/19 Additional Comments F/U for PO intakes, TF tolerance
[2019-06-18] MEDS: INSULIN LISPRO 100 UNIT/ML SUB-Q SCH ×4 (02:26→18:08)
[2019-06-18 08:25] LABS: Basophils % (Auto) 0.4 % (0.0-1.8); Eosinophils # (Auto) 0.2 K/mm3 (0.0-0.4); Eosinophils % (Auto) 4.1 % (0.0-4.3); Hematocrit 35.1 % (35.5-45.6); Hemoglobin 11.6 gm/dl (11.8-15.2); Lymphocytes # (Auto) 0.4 K/mm3 (1.2-5.4); Lymphocytes % (Auto) 11.7 % (13.4-35.0); Mean Corpuscular HGB Conc 33 % (32-34); Mean Corpuscular Volume 92 fl (84-94); Monocytes # (Auto) 0.3 K/mm3 (0.0-0.8); Monocytes % (Auto) 9.3 % (0.0-7.3); Red Blood Count 3.83 M/mm3 (3.65-5.03); Red Cell Distribution Width 14.4 % (13.2-15.2)
[2019-06-18 08:41] LABS: Platelet Count 95 K/mm3 (140-440)
[2019-06-18 08:49] LABS: BUN/Creatinine Ratio 28; Blood Urea Nitrogen 11 mg/dL (9-20); Calcium 7.8 mg/dL (8.4-10.2); Hemolysis Index 16
[2019-06-18] MEDS: GABAPENTIN 500 MG/10 ML ORAL LIQD FEEDTUBE SCH ×2 (09:36→22:13)
[2019-06-18] MEDS: MULTIVITAMINS 5 ML ORAL LIQUID FEEDTUBE SCH (09:36)
[2019-06-18] MEDS: HEPARIN 5,000 UNIT/1 ML VIAL SUB-Q SCH ×2 (09:37→22:07)
[2019-06-18] MEDS: ASCORBIC ACID 500 MG TAB FEEDTUBE SCH (09:37)
[2019-06-18] MEDS: metFORMIN 500 MG TAB PO SCH ×2 (09:37→17:15)
[2019-06-18] MEDS: ASPIRIN EC 81 MG TAB PO SCH (09:37)
[2019-06-18] MEDS: LANSOPRAZOLE 30 MG SOLUTAB FEEDTUBE SCH (09:37)
[2019-06-18] MEDS: FLORANEX GRANULE PACKET FEEDTUBE SCH (09:37)
[2019-06-18] MEDS ORDERED: ALBUTEROL 2.5 MG/3 ML NEBU IH PRN (09:43)
--- NOTE | 2019-06-18 10:40 | Progress Note ---
Assessment and Plan - Patient Problems (1) Altered mental status Current Visit: Yes Status: Acute Plan to address problem: Patient altered mental status secondary to sepsis pneumonia and hypoxic respiratory failure. Has improved. Patient also has underlying vascular dementia. (2) Right lower lobe pneumonia Current Visit: Yes Status: Acute Qualifiers: Pneumonia type: aspiration pneumonia Plan to address problem: Pneumonia is improving. Patient's oxygenation is improving. Fever curve is coming down. Clinically looks more pool with his sensorium (3) Sepsis Current Visit: Yes Status: Acute Plan to address problem: Change to improve clinically. Patient on cefepime and vancomycin. Continue present IV antibiotics. Follow blood culture data patient has no growth so far. MRSA culture negative (4) UTI (urinary tract infection) Current Visit: Yes Status: Acute Qualifiers: Urinary tract infection type: acute cystitis Plan to address problem: Continue treatment with cefepime (5) CVA, old, dysphagia Current Visit: Yes Status: Chronic Plan to address problem: No CVA nonacute at this time. Still has residual right hemiparesis and poor cognition most likely vascular dementia. (6) DVT prophylaxis Current Visit: No Status: Acute (7) HTN (hypertension) Current Visit: No Status: Acute Qualifiers: Hypertension type: essential hypertension Qualified Code(s): I10 - Essential (primary) hypertension Plan to address problem: At present remains well controlled. Continue current antihypertensives. History Interval history: Patient more alert today. Appears to be breathing better today. No new concerns overnight. Hospitalist Physical - Constitutional Vitals: Temp Pulse Resp BP Pulse Ox 97.4 F L 87 14 106/68 94 06/18/19 08:36 06/18/19 08:36 06/18/19 08:36 06/18/19 08:36 06/18/19 09:40 General appearance: Present: no acute distress, other (elderly) - EENT Eyes: Present: PERRL, EOM intact ENT: hearing intact, clear oral mucosa, dentition normal - Neck Neck: Present: supple, normal ROM - Respiratory Respiratory effort: normal - Cardiovascular Rhythm: regular - Extremities Extremities: no ischemia, pulses intact, pulses symmetrical Peripheral Pulses: within normal limits - Abdominal General gastrointestinal: soft, non-tender, normal bowel sounds - Integumentary Integumentary: Present: clear, warm, dry - Psychiatric Psychiatric: cooperative - Neurologic Neurologic: focal deficits, other (dense hemiparesis) Results - Labs CBC & Chem 7: 06/18/19 07:48 06/18/19 07:48 Labs: Laboratory Last Values WBC 3.7 K/mm3 (4.5-11.0) L 06/18/19 07:48 RBC 3.83 M/mm3 (3.65-5.03) 06/18/19 07:48 Hgb 11.6 gm/dl (11.8-15.2) L 06/18/19 07:48 Hct 35.1 % (35.5-45.6) L 06/18/19 07:48 MCV 92 fl (84-94) 06/18/19 07:48 MCH 30 pg (28-32) 06/18/19 07:48 MCHC 33 % (32-34) 06/18/19 07:48 RDW 14.4 % (13.2-15.2) 06/18/19 07:48 Plt Count 95 K/mm3 (140-440) L 06/18/19 07:48 Lymph % (Auto) 11.7 % (13.4-35.0) L 06/18/19 07:48 [place] % (Auto) 9.3 % (0.0-7.3) H 06/18/19 07:48 Eos % (Auto) 4.1 % (0.0-4.3) 06/18/19 07:48 Baso % (Auto) 0.4 % (0.0-1.8) 06/18/19 07:48 Lymph # 0.4 K/mm3 (1.2-5.4) L 06/18/19 07:48 [place] # 0.3 K/mm3 (0.0-0.8) 06/18/19 07:48 Eos # 0.2 K/mm3 (0.0-0.4) 06/18/19 07:48 Baso # 0.0 K/mm3 (0.0-0.1) 06/18/19 07:48 Seg Neutrophils % 74.5 % (40.0-70.0) H 06/18/19 07:48 Seg Neutrophils # 2.8 K/mm3 (1.8-7.7) 06/18/19 07:48 PT 13.8 Sec. (12.2-14.9) 06/15/19 12:57 INR 1.09 (0.87-1.13) 06/15/19 12:57 APTT 31.7 Sec. (24.2-36.6) 06/15/19 12:57 VBG pH 7.409 (7.320-7.420) 06/15/19 12:57 Sodium 144 mmol/L (137-145) 06/18/19 07:48 Potassium 3.2 mmol/L (3.6-5.0) L 06/18/19 07:48 Chloride 111.2 mmol/L (98-107) H 06/18/19 07:48 Carbon Dioxide 21 mmol/L (22-30) L 06/18/19 07:48 15 mmol/L 06/18/19 07:48 BUN 11 mg/dL (9-20) 06/18/19 07:48 0.4 mg/dL (0.8-1.5) L 06/18/19 07:48 Estimated GFR > 60 ml/min 06/18/19 07:48 28 % 06/18/19 07:48 Glucose 116 mg/dL (75-100) H 06/18/19 07:48 POC Glucose 138 (70-105) H 06/18/19 06:48 Lactic Acid 0.60 mmol/L (0.7-2.0) L 06/15/19 23:50 Calcium 7.8 mg/dL (8.4-10.2) L 06/18/19 07:48 Magnesium 2.50 mg/dL (1.7-2.3) H 06/15/19 12:57 0.30 mg/dL (0.1-1.2) 06/15/19 12:57 AST 17 units/L (5-40) 06/15/19 12:57 ALT 13 units/L (7-56) 06/15/19 12:57 78 units/L (35-129) 06/15/19 12:57 37 units/L (55-170) L 06/15/19 12:57 6.8 g/dL (6.3-8.2) 06/15/19 12:57 3.3 g/dL (3.9-5) L 06/15/19 12:57 0.9 % 06/15/19 12:57 Yellow (Yellow) 06/15/19 14:20 Turbid (Clear) 06/15/19 14:20 7.0 (5.0-7.0) 06/15/19 14:20 Ur Specific [place] 1.020 (1.003-1.030) 06/15/19 14:20 100 mg/dl mg/dL (Negative) 06/15/19 14:20 Neg mg/dL (Negative) 06/15/19 14:20 Neg mg/dL (Negative) 06/15/19 14:20 Sm (Negative) 06/15/19 14:20 Neg (Negative) 06/15/19 14:20 Neg (Negative) 06/15/19 14:20 < 2.0 mg/dL (<2.0) 06/15/19 14:20 Ur Leukocyte Esterase Mod (Negative) 06/15/19 14:20 > 182.0 /HPF (0.0-6.0) H 06/15/19 14:20 24.0 /HPF (0.0-6.0) 06/15/19 14:20 4+ /HPF (Negative) 06/15/19 14:20 3+ /HPF 06/15/19 14:20 3+ /HPF 06/15/19 14:20 1+ /HPF 06/15/19 14:20 Active Medications - Current Medications Current Medications: Generic Name Dose Route Start Last Admin Trade Name Freq PRN Reason Stop Dose Admin Acetaminophen 650 mg 06/16/19 07:00 Tylenol FEEDTUBE Q4HR PRN Pain Albuterol 2.5 mg 06/18/19 09:43 Proventil IH TIDRT PRN Shortness of breath. Lipase/Protease/Amylase 1 each 06/16/19 13:00 Pancredonovan Lilly 10,500 Unit FEEDTUBE PRN PRN For Clogged Feeding Tube Ascorbic Acid 500 mg 06/15/19 22:00 06/18/19 09:37 Vitamin C FEEDTUBE 500 mg QDAY SHIRA Administration Aspirin 81 mg 06/15/19 22:00 06/18/19 09:37 Halfprin Ec PO 81 mg DAILY SHIRA Administration Atorvastatin Calcium 40 mg 06/15/19 22:00 06/17/19 22:29 Lipitor FEEDTUBE 40 mg QHS SHIRA Administration Dextrose 25 ml 06/16/19 06:21 06/16/19 06:53 D50w (25gm) Syringe IV 25 ml PRN PRN Administration Hypoglycemia Gabapentin 300 mg 06/15/19 22:00 06/18/19 09:36 Neurontin FEEDTUBE 300 mg BID SHIRA Administration Guaifenesin 10 ml 06/15/19 21:55 Guaifenesin Dm Syrup FEEDTUBE Q6H PRN Cough Heparin Sodium (Porcine) 5,000 unit 06/15/19 23:15 06/18/19 09:37 Heparin SUB-Q 5,000 unit Q12HR SHIRA Administration Cefepime HCl 2 gm in 100 mls @ 200 mls/hr 06/15/19 22:00 06/17/19 22:29 Maxipime/Ns 2 Gm/100 Ml IV 06/19/19 23:59 200 mls/hr Q12HR SHIRA Administration Protocol Insulin Human Lispro 0 unit 06/16/19 00:00 06/18/19 09:08 Humalog SUB-Q Not Given Q6HR SHIRA Protocol Lactobacillus Acidophilus 1 each 06/16/19 10:00 06/18/19 09:37 Floranex FEEDTUBE 1 each QAM SHIRA Administration Lansoprazole 30 mg 06/16/19 10:00 06/18/19 09:37 Prevacid Solutab FEEDTUBE 30 mg QDAY SHIRA Administration Metformin HCl 500 mg 06/15/19 22:00 06/18/19 09:37 Glucophage PO 500 mg BIDDIAB SHIRA Administration Multivitamins 5 ml 06/16/19 10:00 06/18/19 09:36 Centrum Liq FEEDTUBE 5 ml DAILY SHIRA Administration Simple Syrup 15 ml 06/16/19 13:00 Simple Syrup FEEDTUBE PRN PRN Hypoglycemia Simple Syrup 30 ml 06/16/19 13:00 Simple Syrup FEEDTUBE PRN PRN Hypoglycemia Sodium Bicarbonate 325 mg 06/16/19 13:00 Sodium Bicarbonate FEEDTUBE PRN PRN For Clogged Feeding Tube Nutrition/Malnutrition Assess - Dietary Evaluation Nutrition/Malnutrition Findings: Nutrition Notes Start: 06/16/19 11:12 Freq: Status: Active Protocol: Document 06/17/19 10:40 LM (Rec: 06/17/19 10:41 LM [email or web address]) Nutrition Notes Initial or Follow up Reassessment Current Diagnosis COPD,Diabetes,Stroke, Hyperlipidemia Other Pertinent Diagnosis peripheral neuropathy, sacral & thigh wound, PEG, dysphagia Current Diet Pureed diet and Glucerna 1.2 at 65 ml/hr Labs/Tests BG 143 K 3.3 Cr 0.4 Pertinent Medications Reviewed Height 5 ft 9 in Weight 72.7 kg [place] Body Weight (kg) 72.72 BMI 23.6 Weight change and time frame Wt change noted. [facility] Subjective/Other Information Per RN pt tolerated TF over night. Pt has not yet eatin breakfast at time of visit. Percent of energy/protein needs met: 46%/54% Burn Absent Trauma Absent Difficulty In Chewing Minimum of two criteria No #2 Nutrition Diagnosis Increased nutrient needs ( specify in comment below) Diagnosis Progress(for reassessment Continues documentation) #1 Nutrition Diagnosis Inadequate oral intake Diagnosis Progress(for reassessment Continues documentation) Is patient on ventilator? No Is Patient Ambulatory and/or Out of Bed No REE-([place] [facility]-confined to bed) 1837.740 Kcal/Kg value to use for calculation 28 Approximate Energy Requirements Using 2036 kcal/Kg Calculation Used for Recommendations Kcal/kg Additional Notes Protein: 87-109g (1.2-1.5g/kg) Fluids: 1 ml/kcal Nutrition Intervention Change Diet Order: Continue pureed diet and start cyclic TF Nutrition Support: Glucerna 1.2 at 65 ml/hr Flush 50 ml q4hr Kcal 936 Protein (gm) 47 Fluid (mL) 628 Goal #1 Meet at least 80% of energy and protein needs with pureed diet and TF Goal #2 diet and TF tolerance Anticipated Discharge Needs: pureed diet and TF Follow-Up By: 06/20/19 Additional Comments F/U for PO intakes, TF tolerance
[2019-06-18] MEDS: CEFEPIME/NS 2 GM/100 ML 2 GM/100 ML BAG IV SCH ×2 (10:53→22:07)
[2019-06-19] MEDS: INSULIN LISPRO 100 UNIT/ML SUB-Q SCH ×3 (02:14→14:04)
[2019-06-19 09:58] LABS: Basophils % (Auto) 0.4 % (0.0-1.8); Eosinophils # (Auto) 0.1 K/mm3 (0.0-0.4); Eosinophils % (Auto) 2.4 % (0.0-4.3); Hematocrit 31.9 % (35.5-45.6); Hemoglobin 10.5 gm/dl (11.8-15.2); Lymphocytes # (Auto) 0.5 K/mm3 (1.2-5.4); Lymphocytes % (Auto) 12.6 % (13.4-35.0); Mean Corpuscular HGB Conc 33 % (32-34); Mean Corpuscular Volume 88 fl (84-94); Monocytes # (Auto) 0.3 K/mm3 (0.0-0.8); Monocytes % (Auto) 7.1 % (0.0-7.3); Red Blood Count 3.61 M/mm3 (3.65-5.03); Red Cell Distribution Width 14.4 % (13.2-15.2)
[2019-06-19 09:59] LABS: Platelet Count 94 K/mm3 (140-440)
[2019-06-19 10:12] LABS: BUN/Creatinine Ratio 37; Blood Urea Nitrogen 11 mg/dL (9-20); Calcium 7.8 mg/dL (8.4-10.2); Hemolysis Index 2
--- NOTE | 2019-06-19 12:17 | Discharge Summary ---
Providers - Providers Date of Admission: 06/15/19 15:05 Date of discharge: 06/19/19 Attending physician: CAROLINE NG 06/15/19 15:46 Speech Therapy Evaluation and Treat [CONS] Routine Reason For Exam: failed bedside Primary care physician: CAROLINE NG Hospitalization Condition: Critical Hospital course: Patient 58-year-old with a history of CVA COPD presented with sepsis secondary to right lower lobe pneumonia. Patient had altered mental status and now status post 5 days of IV antibiotics patient is defervesced well. Afebrile o xygenating well without O2. He will be stable. Can be discharged back to halfway stable condition. Disposition: DC/[place]-03 SN[facility] CERT - Discharge Diagnoses (1) Altered mental status Status: Resolved Comment: Secondary to sepsis and hypoxic respiratory failure. (2) Right lower lobe pneumonia Status: Acute Qualifiers: Pneumonia type: aspiration pneumonia Comment: Early treated with IV antibiotics. We'll continue IV antibiotics for a total of 7 days and incomplete by mouth antibiotics for another 7 days. We'll have follow-up by myself.[email or web address]. (3) Sepsis Status: Acute Comment: resolved (4) UTI (urinary tract infection) Status: Acute Qualifiers: Urinary tract infection type: acute cystitis (5) CVA, old, dysphagia Status: Chronic (6) DVT prophylaxis Status: Acute (7) HTN (hypertension) Status: Acute Qualifiers: Hypertension type: essential hypertension Qualified Code(s): I10 - Essential (primary) hypertension Core Measure Documentation - Palliative Care Palliative Care/ Comfort Measures: Not Applicable - Core Measures Any of the following diagnoses?: none Exam - Constitutional Vitals: Temp Pulse Resp BP Pulse Ox 97.6 F 87 14 111/70 95 06/19/19 07:36 06/19/19 07:36 06/19/19 07:36 06/19/19 07:36 06/19/19 07:36 General appearance: Present: no acute distress, well-nourished - EENT Eyes: Present: PERRL ENT: hearing intact, clear oral mucosa - Neck Neck: Present: supple, normal ROM - Respiratory Respiratory effort: normal Respiratory: bilateral: CTA - Cardiovascular Heart Sounds: Present: S1 & S2. Absent: rub, click - Extremities Extremities: pulses symmetrical, No edema Peripheral Pulses: within normal limits - Abdominal General gastrointestinal: Present: soft, non-tender, non-distended, normal bowel sounds Male genitourinary: Present: normal - Integumentary Integumentary: Present: clear, warm, dry - Musculoskeletal Musculoskeletal: strength equal bilaterally, generalized weakness, other (dense hemiparesis) - Psychiatric Psychiatric: appropriate mood/affect, intact judgment & insight - Neurologic Neurologic: CNII-XII intact, focal deficits Plan Activity: no restrictions Diet: other (peg as halfway) Follow up with: CAROLINE NG MD [Primary Care Provider] - 7 Days
[2019-06-19] MEDS: ASPIRIN EC 81 MG TAB PO SCH (14:00)
[2019-06-19] MEDS: ASCORBIC ACID 500 MG TAB FEEDTUBE SCH (14:00)
[2019-06-19] MEDS: FLORANEX GRANULE PACKET FEEDTUBE SCH (14:00)
[2019-06-19] MEDS: MULTIVITAMINS 5 ML ORAL LIQUID FEEDTUBE SCH (14:00)
[2019-06-19] MEDS: metFORMIN 500 MG TAB PO SCH (14:04)
[2019-06-19] MEDS: HEPARIN 5,000 UNIT/1 ML VIAL SUB-Q SCH (14:04)
[2019-06-19] MEDS: CEFEPIME/NS 2 GM/100 ML 2 GM/100 ML BAG IV SCH (14:05)
[2019-06-19] MEDS: LANSOPRAZOLE 30 MG SOLUTAB FEEDTUBE SCH (14:22)
[2019-06-19 17:29] VITALS: BP 124/78
== END 2019-06-19 18:49 | DRG 871 ==
LOC: ED 12:40 → 3A 15:05 → CC1 22:07 → 4A 06-17 18:45
PROVIDERS: ADMIT Internal Medicine; ATTEND Internal Medicine
PROC: 02HV33Z Insertion of Infusion Device into Superior Vena Cava, Percutaneous Approach (ICD-10-PCS; principal; 2019-06-15)
PROC: B548ZZA Ultrasonography of Superior Vena Cava, Guidance (ICD-10-PCS; 2019-06-15)
DX: A41.9 Sepsis, unspecified organism (principal); J69.0 Pneumonitis due to inhalation of food and vomit; R65.21 Severe sepsis with septic shock; J96.91 Respiratory failure, unspecified with hypoxia; N17.9 Acute kidney failure, unspecified; N30.00 Acute cystitis without hematuria; R33.9 Retention of urine, unspecified; I69.391 Dysphagia following cerebral infarction; K21.9 Gastro-esophageal reflux disease without esophagitis; E11.65 Type 2 diabetes mellitus with hyperglycemia; J44.9 Chronic obstructive pulmonary disease, unspecified; E11.42 Type 2 diabetes mellitus with diabetic polyneuropathy; Z79.4 Long term (current) use of insulin; Z82.49 Family history of ischemic heart disease and other diseases of the circulatory system; Z79.899 Other long term (current) drug therapy; Z79.82 Long term (current) use of aspirin; Z93.1 Gastrostomy status
CPT/HCPCS: 36415; 71045; 80048; 80053; 81001; 82140; 82550; 82805; 82962; 83735; 85025; 85027; 85610; 85730; 87040; 87086; 87116; 93005; 93010; 94640; 94760; 96360; G0378; A9270-GY; J0692; J1644; J1815; J1956; J3370; J7030; J7040; J7042; J7050

== ENCOUNTER 2019-10-11 22:25 | Emergency (ER) | payer MEDICARE ==
[2019-10-11 22:37] VITALS: BP 99/68
--- NOTE | 2019-10-11 22:52 | Emergency Department Report ---
ED General Adult HPI - General Chief complaint: Tube Replacement Stated complaint: PEG TUBE Time Seen by Provider: 10/11/19 22:46 Source: EMS Mode of arrival: Stretcher Limitations: Altered Mental Status, Physical Limitation - History of Present Illness Initial comments: Patient is a 59-year-old male that presents emergency room for malfunctioning G-tube. Report received from EMS. Per EMS: Patient sent here by his [facility] living to have his PEG tube change. Patient's PEG tube started leaking today. Patient was able to be fed but some of the feeding was leaking from the tube. -: Sudden Consistency: constant Improves with: none Worsens with: none Associated Symptoms: denies other symptoms Treatments Prior to Arrival: none - Related Data Home Medications Medication Instructions Recorded Confirmed Last Taken AtorvaSTATin [Lipitor] 40 mg FEEDTUBE QHS 06/21/16 06/15/19 06/15/19 Ascorbic Acid [Vitamin C] 500 mg FEEDTUBE QDAY 07/14/18 06/15/19 06/15/19 Aspirin [Adult Aspirin Regimen] 81 mg FEEDTUBE DAILY 07/14/18 06/15/19 06/15/19 Ipratropium/Albuterol Sulfate 1 ampul IH Q6HR 07/14/18 06/15/19 06/15/19 [DUONEB *Not for PRN Use*] Multivitamin [Multiple Vitamins] 1 each FEEDTUBE DAILY 07/14/18 06/15/19 06/15/19 Protein Supplement [Promod] 30 ml FEEDTUBE Q8H 07/14/18 06/15/19 06/15/19 Acetaminophen [Acetaminophen TAB] 650 mg FEEDTUBE Q4HR PRN 11/11/18 06/15/19 06/15/19 Gabapentin 300 mg FEEDTUBE BID 11/11/18 06/15/19 06/15/19 L. Acidophilus/L.bulgaricus 1 each FEEDTUBE QAM 11/11/18 06/15/19 11/14/18 [Lactobacillus Tablet] guaiFENesin DM [Robitussin Dm] 10 ml FEEDTUBE Q6HR PRN 11/11/18 06/15/19 06/15/19 Pantoprazole [Protonix TAB] 40 mg FEEDTUBE QDAY 06/15/19 06/15/19 06/15/19 metFORMIN [Glucophage] 500 mg PO BID 06/15/19 06/15/19 06/15/19 Previous Rx's Medication Instructions Recorded Last Taken Type PANTOPRAZOLE SODIUM (nf) [Protonix 40 mg PO DAILY 30 Days 01/06/19 06/15/19 Rx GRANULES] cefUROXime [Ceftin] 2 tab PO Q12H #8 tablet 04/05/19 04/08/19 Rx ALBUTEROL NEB's [Proventil 0.083% 2.5 mg IH TIDRT PRN nebu 06/19/19 Unknown Rx NEBS] Lipase/Protease/Amylase [Pancreaze 1 each FEEDTUBE PRN PRN capsule 06/19/19 Unknown Rx 10,500 Unit] Sodium Bicarbonate 325 mg FEEDTUBE PRN PRN tablet 06/19/19 Unknown Rx Allergies Allergy/AdvReac Type Severity Reaction Status Date / Time No Known Allergies Allergy Verified 02/27/15 00:48 ED Review of Systems ROS: Stated complaint: PEG TUBE Other details as noted in HPI Comment: Unobtainable due to pts medical conditions ED Past Medical Hx - Past Medical History Previous Medical History?: Yes Hx Hypertension: Yes Hx CVA: Yes Hx Congestive Heart Failure: No (unknown) Hx Diabetes: Yes Hx GERD: Yes Hx Renal Disease: Yes Hx Asthma: No (unknown) Hx COPD: Yes Hx HIV: No Additional medical history: Tijerina Cath - Surgical History Past Surgical History?: Yes Additional Surgical History: bree PEG - Family History Family history: no significant - Social History Smoking Status: Unknown if ever smoked Substance Use Type: None - Medications Home Medications: Home Medications Medication Instructions Recorded Confirmed Last Taken Type AtorvaSTATin [Lipitor] 40 mg FEEDTUBE QHS 06/21/16 06/15/19 06/15/19 History Ascorbic Acid [Vitamin C] 500 mg FEEDTUBE QDAY 07/14/18 06/15/19 06/15/19 History Aspirin [Adult Aspirin Regimen] 81 mg FEEDTUBE DAILY 07/14/18 06/15/19 06/15/19 History Ipratropium/Albuterol Sulfate 1 ampul IH Q6HR 07/14/18 06/15/19 06/15/19 History [DUONEB *Not for PRN Use*] Multivitamin [Multiple Vitamins] 1 each FEEDTUBE DAILY 07/14/18 06/15/19 06/15/19 History Protein Supplement [Promod] 30 ml FEEDTUBE Q8H 07/14/18 06/15/19 06/15/19 History Acetaminophen [Acetaminophen TAB] 650 mg FEEDTUBE Q4HR PRN 11/11/18 06/15/19 06/15/19 History Gabapentin 300 mg FEEDTUBE BID 11/11/18 06/15/19 06/15/19 History L. Acidophilus/L.bulgaricus 1 each FEEDTUBE QAM 11/11/18 06/15/19 11/14/18 History [Lactobacillus Tablet] guaiFENesin DM [Robitussin Dm] 10 ml FEEDTUBE Q6HR PRN 11/11/18 06/15/19 06/15/19 History PANTOPRAZOLE SODIUM (nf) [Protonix 40 mg PO DAILY 30 Days granpkt. 01/06/19 06/15/19 06/15/19 Rx GRANULES] cefUROXime [Ceftin] 2 tab PO Q12H #8 tablet 04/05/19 06/15/19 04/08/19 Rx Pantoprazole [Protonix TAB] 40 mg FEEDTUBE QDAY 06/15/19 06/15/19 06/15/19 History metFORMIN [Glucophage] 500 mg PO BID 06/15/19 06/15/19 06/15/19 History ALBUTEROL NEB's [Proventil 0.083% 2.5 mg IH TIDRT PRN nebu 06/19/19 Unknown Rx NEBS] Lipase/Protease/Amylase [Pancreaze 1 each FEEDTUBE PRN PRN capsule 06/19/19 Unknown Rx 10,500 Unit] Sodium Bicarbonate 325 mg FEEDTUBE PRN PRN tablet 06/19/19 Unknown Rx ED Physical Exam - General Limitations: Altered Mental Status, Physical Limitation General appearance: alert - Head Head exam: Present: atraumatic, normocephalic - Eye Eye exam: Present: normal appearance, PERRL Pupils: Present: normal accommodation - ENT ENT exam: Present: mucous membranes moist - Neck Neck exam: Present: normal inspection - Respiratory Respiratory exam: Present: normal lung sounds bilaterally. Absent: respiratory distress, wheezes - Cardiovascular Cardiovascular Exam: Present: regular rate, normal rhythm. Absent: systolic murmur, diastolic murmur, rubs, gallop - GI/Abdominal GI/Abdominal exam: Present: soft, normal bowel sounds, other (G-tube noted.). Absent: distended, tenderness, guarding - Rectal Rectal exam: Present: deferred - Extremities Exam Extremities exam: Present: normal inspection - Back Exam Back exam: Present: normal inspection - Neurological Exam Neurological exam: Present: alert, altered - Skin Skin exam: Present: warm, dry, normal color. Absent: rash ED Course Vital Signs 10/11/19 22:36 Temperature 97.9 F Pulse Rate 84 Respiratory 16 Rate Blood Pressure 99/68 [Right] O2 Sat by Pulse 97 Oximetry - Reevaluation(s) Reevaluation #1: Patient's PEG tube has a rubber stopper on the inside. Patient will need to have his tube change endoscopically. I was discussed this with the patient's primary care. Patient is medically cleared. 10/11/19 22:52 - Consultations Consultation #1: Patient's primary care page. 10/11/19 22:52 I discussed case with Dr. Obrien. Dr. Obrien agrees with plan of care and discharge back to [facility]. Dr. Obrien states that he will set up a outpatient point with GI to have the tube change. 10/11/19 23:22 ED Medical Decision Making - Medical Decision Making 59-year-old male transferred emergency room with complaints of leaking PEG tube. Per report from EMS, the patient's PEG tube began leaking just prior to arrival. The nurse sent him to the emergency room to have his PEG tube change. On examination, the patient noted to have a rubber stopper on the internal aspect of the G-tube and is unable to removed and will need to be removed endoscopically. Patient will need to have his G-tube change endoscopically at a outpatient GI office. I discussed the case with the patient's primary care in the primary care agrees with plan of care and states she will set up a GI follow-up in the morning with local Gastro. Patient is medically cleared and will return via EMS to the senior living. G-tube is patent upon discharge. - Differential Diagnosis G-tube malfunction, leaking G-tube. Critical care attestation.: If time is entered above; I have spent that time in minutes in the direct care of this critically ill patient, excluding procedure time. ED Disposition Clinical Impression: Leaking percutaneous endoscopic gastrostomy (PEG) tube Disposition: [id number] ANOTHER TYPE HLTHCARE Is pt being admited?: No Does the pt Need Aspirin: No Condition: Stable Instructions: Percutaneous Endoscopic Gastrostomy Insertion (GEN), Tube Feeding (ED) Additional Instructions: Patient to follow up with GI as soon as possible to have G-tube change. Patient to follow up with primary care within 2 days. Patient to return to ER if condition worsens. Patient to continue use of G-tube until changed. Referrals: PAZ FRANK MD [Staff Physician] - [facility] Time of Disposition: 23:24
== END 2019-10-12 00:35 | disposition other institution (70) ==
LOC: ED 22:25
DX: K94.20 Gastrostomy complication, unspecified (principal); I10 Essential (primary) hypertension; E11.9 Type 2 diabetes mellitus without complications; K21.9 Gastro-esophageal reflux disease without esophagitis; J44.9 Chronic obstructive pulmonary disease, unspecified; Z98.890 Other specified postprocedural states; Z79.899 Other long term (current) drug therapy
CPT/HCPCS: 99282

== ENCOUNTER 2020-02-02 13:57 | Inpatient (IN) | payer MEDICARE ==
--- NOTE | 2020-02-02 16:41 | Emergency Department Report ---
ED Shortness of Breath HPI - General Chief Complaint: Dyspnea/Respdistress Stated Complaint: FLUID RETENTION IN LUNGS Time Seen by Provider: 02/02/20 16:35 Source: patient Mode of arrival: Stretcher Limitations: Altered Mental Status - History of Present Illness Initial Comments: Patient is a 59-year-old male that presents emergency room with shortness of breath and dyspnea. Patient is a resident at [facility]. Patient was brought in by EMS. EMS states that the patient is at his current neurologic baseline. EMS reports that the patient became short of breath and needed to be evaluated again for possible fluid on his lungs. EMS states that the patient was here in December and had his lung drained. EMS states that he had a negative coronavirus test already. Patient is also febrile. Patient is nonverbal. [facility]'s [facility] document reviewed. Patient's primary care is Dr. Obrien. Patient has a long past medical history to include: Malnutrition, pneumonia, CVA, aphasia, COPD, encephalopathy, hemiplegia, kidney failure, type 2 diabetes, thrombocytopenia, dyspnea, quadriplegic, uropathy, hearing loss, with weakness, debility, frequent UTIs, hyperlipidemia, history of MRSA infection, history of EtOH abuse, hypertension, history of falling, abnormal gait, GERD, history of sepsis. Patient has a chronic PEG and Tijerina cath. MD Complaint: shortness of breath -: Sudden Consistency: constant Known History Of: COPD, recurrent pnemonia, other Context: other Associated Symptoms: fever - Related Data Home Medications Medication Instructions Recorded Confirmed Last Taken AtorvaSTATin [Lipitor] 40 mg FEEDTUBE QHS 06/21/16 12/30/19 06/15/19 Aspirin [Adult Aspirin Regimen] 81 mg FEEDTUBE DAILY 07/14/18 12/30/19 06/15/19 Multivitamin [Multiple Vitamins] 1 each FEEDTUBE DAILY 07/14/18 12/30/19 06/15/19 Protein Supplement [Promod] 30 ml FEEDTUBE Q8H 07/14/18 12/30/19 06/15/19 Acetaminophen [Acetaminophen TAB] 650 mg FEEDTUBE Q4HR PRN 11/11/18 12/30/19 06/15/19 Gabapentin 300 mg FEEDTUBE BID 11/11/18 12/30/19 06/15/19 Lispro Insulin [HumaLOG] See Protocol SQ BID 12/30/19 12/30/19 Unknown Sennosides [Senna] 8.6 mg PO DAILY 12/30/19 12/30/19 Unknown Previous Rx's Medication Instructions Recorded Last Taken Type PANTOPRAZOLE SODIUM (nf) [Protonix 40 mg PO DAILY 30 Days granp 01/06/19 06/15/19 Rx GRANULES] DOXYCYCLINE Hyclate [Vibramycin 100 mg PO BID #12 tab 01/06/20 Unknown Rx CAP] cefUROXime [Ceftin] 500 mg PO Q12HR #12 tablet 01/06/20 Unknown Rx Allergies Allergy/AdvReac Type Severity Reaction Status Date / Time No Known Allergies Allergy Verified 02/27/15 00:48 ED Review of Systems ROS: Stated complaint: FLUID RETENTION IN LUNGS Other details as noted in HPI Comment: Unobtainable due to pts medical conditions ED Past Medical Hx - Past Medical History Previous Medical History?: Yes Hx Hypertension: Yes Hx CVA: Yes Hx Congestive Heart Failure: (unknown) Hx Diabetes: Yes (Type II) Hx GERD: Yes Hx Renal Disease: Yes Hx Asthma: (unknown) Hx COPD: Yes Hx HIV: No Additional medical history: Tijerina Cath, humerus fracture, aphasia, quadraplegia, MRSA - Surgical History Past Surgical History?: Yes Additional Surgical History: PEG - Family History Family history: no significant - Social History Smoking Status: Unknown if ever smoked Substance Use Type: None - Medications Home Medications: Home Medications Medication Instructions Recorded Confirmed Last Taken Type AtorvaSTATin [Lipitor] 40 mg FEEDTUBE QHS 06/21/16 12/30/19 06/15/19 History Aspirin [Adult Aspirin Regimen] 81 mg FEEDTUBE DAILY 07/14/18 12/30/19 06/15/19 History Multivitamin [Multiple Vitamins] 1 each FEEDTUBE DAILY 07/14/18 12/30/19 06/15/19 History Protein Supplement [Promod] 30 ml FEEDTUBE Q8H 07/14/18 12/30/19 06/15/19 Hist ory Acetaminophen [Acetaminophen TAB] 650 mg FEEDTUBE Q4HR PRN 11/11/18 12/30/19 06/15/19 History Gabapentin 300 mg FEEDTUBE BID 11/11/18 12/30/19 06/15/19 History PANTOPRAZOLE SODIUM (nf) [Protonix 40 mg PO DAILY 30 Days granp 01/06/19 12/30/19 06/15/19 Rx GRANULES] Lispro Insulin [HumaLOG] See Protocol SQ BID 12/30/19 12/30/19 Unknown History Sennosides [Senna] 8.6 mg PO DAILY 12/30/19 12/30/19 Unknown History DOXYCYCLINE Hyclate [Vibramycin 100 mg PO BID #12 tab 01/06/20 Unknown Rx CAP] cefUROXime [Ceftin] 500 mg PO Q12HR #12 tablet 01/06/20 Unknown Rx ED Physical Exam - General Limitations: Altered Mental Status, Physical Limitation General appearance: alert, in no apparent distress - Head Head exam: Present: atraumatic, normocephalic - Eye Eye exam: Present: normal appearance, PERRL Pupils: Present: normal accommodation - ENT ENT exam: Present: mucous membranes dry - Neck Neck exam: Present: normal inspection - Respiratory Respiratory exam: Present: normal lung sounds bilaterally. Absent: respiratory distress - Cardiovascular Cardiovascular Exam: Present: regular rate, normal rhythm. Absent: systolic murmur, diastolic murmur, rubs, gallop - GI/Abdominal GI/Abdominal exam: Present: soft, normal bowel sounds - Rectal Rectal exam: Present: deferred - Extremities Exam Extremities exam: Present: normal inspection - Back Exam Back exam: Present: normal inspection - Neurological Exam Neurological exam: Present: alert, altered - Skin Skin exam: Present: warm, dry, intact, normal color. Absent: rash ED Course Vital Signs 02/02/20 02/02/20 02/02/20 17:11 17:15 17:27 Temperature 98.0 F Pulse Rate 104 H 101 H Respiratory 33 H 25 H Rate Blood Pressure 101/61 Blood Pressure 101/61 [Right] O2 Sat by Pulse 97 97 Oximetry 02/02/20 02/02/20 02/02/20 17:30 17:46 18:00 Temperature Pulse Rate 109 H 98 H 103 H Respiratory 24 22 24 Rate Blood Pressure 101/61 101/61 101/61 Blood Pressure [Right] O2 Sat by Pulse 97 98 89 Oximetry 02/02/20 02/02/20 02/02/20 18:16 18:30 18:46 Temperature Pulse Rate 101 H 97 H 98 H Respiratory 24 17 24 Rate Blood Pressure 105/66 105/66 105/66 Blood Pressure [Right] O2 Sat by Pulse 98 99 99 Oximetry 02/02/20 02/02/20 02/02/20 19:00 19:16 19:30 Temperature Pulse Rate 101 H 98 H 97 H Respiratory 22 24 23 Rate Blood Pressure 105/66 101/67 101/67 Blood Pressure [Right] O2 Sat by Pulse 99 99 99 Oximetry 02/02/20 02/02/20 02/02/20 19:46 20:00 20:16 Temperature Pulse Rate 106 H 98 H 91 H Respiratory 28 H 24 22 Rate Blood Pressure 101/67 101/67 103/68 Blood Pressure [Right] O2 Sat by Pulse 98 100 98 Oximetry 02/02/20 02/02/20 02/02/20 20:30 20:46 21:00 Temperature Pulse Rate 95 H 98 H 98 H Respiratory 23 23 24 Rate Blood Pressure 103/68 103/68 103/68 Blood Pressure [Right] O2 Sat by Pulse 98 98 99 Oximetry 02/02/20 02/02/20 02/02/20 21:26 21:30 21:44 Temperature 99.1 F Pulse Rate 96 H 97 H Respiratory 20 22 Rate Blood Pressure 103/68 103/68 Blood Pressure [Right] O2 Sat by Pulse 97 99 Oximetry - Reevaluation(s) Reevaluation #1: I discussed all results with patient. I discussed plan of care with patient. Patient to be admitted to the hospitalist service. 02/02/20 22:14 - Consultations Consultation #1: I discussed case with Dr. Shane, general surgery. Dr. Shane recommends admission, HIDA scan and n.p.o. now. 02/02/20 22:13 Consultation #2: Hospitalist consulted for admission. Hospitalist to admit patient. 02/02/20 22:29 ED Medical Decision Making - Lab Data Result diagrams: 02/02/20 18:50 02/02/20 18:50 - EKG Data EKG shows normal: sinus rhythm, axis, intervals, QRS complexes, ST-T waves Rate: normal - Radiology Data Radiology results: report reviewed, image reviewed CHEST 1 VIEW 02/02/2020 4:44 PM INDICATION / CLINICAL INFORMATION: Shortness of breath. COMPARISON: Chest x-ray on 01/05/2020. FINDINGS: SUPPORT DEVICES: None. HEART / MEDIASTINUM: No significant abnormality. LUNGS / PLEURA: No significant pulmonary or pleural abnormality. No pneumothorax. ADDITIONAL FINDINGS: No significant additional findings. IMPRESSION: 1. No acute findings. CT ABDOMEN AND PELVIS WITHOUT IV CONTRAST INDICATION: fever. uti.. COMPARISON: CT 11/11/2018. TECHNIQUE: All CT scans at this facility use dose modulation, automated exposure control, iterative reconstruction or weight based dosing, when appropriate, to reduce radiation dose to as low as reasonably achievable. FINDINGS: Lung Bases: There is a small right pleural effusion with compressive atelectasis in the dependent right lung base. Left lung base is clear. Skeletal System: No acute abnormality. ABDOMEN: Liver: No significant abnormality. Gallbladder: There is a 1.3 cm gallstone. The gallbladder is partially contracted. There is mild gallbladder wall thickening and pericholecystic inflammation. Bile Ducts: No significant abnormality. Pancreas: No significant abnormality. Spleen: Mildly enlarged. Adrenals: Bilateral adrenal nodules are stable. Right Kidney: No significant abnormality. Left Kidney: No significant abnormality. Upper GI tract: Gastrostomy tube is noted in satisfactory position. Lymph Nodes: No significant adenopathy. Aorta: No significant abnormality. Additional Findings: No significant abnormality. PELVIS: Colon: No acute abnormality. Urinary Bladder and Distal Ureters: There is mild bladder wall thickening with minimal perivesical stranding. There is a trace amount of gas in the nondependent bladder. Appendix: No significant abnormality. Lymph Nodes: No significant adenopathy. Additional Findings: Prostate is mildly enlarged. IMPRESSION: 1. Mild bladder wall thickening and perivesical stranding could be seen in cystitis. There is a trace amount of gas in the bladder which could be related to infection or recent instrumentation. 2. Cholelithiasis. Gallbladder shows mild wall thickening and mild pericholecystic stranding. Correlate clinically for acute cholecystitis. No common duct dilatation is seen. 3. Additional, incidental findings as above. - Medical Decision Making Patient is a 59-year-old male that was [facility] here [facility] for evaluation for fever and shortness of breath. Patient does not appear short of breath on exam. Patient was afebrile. Labs were done labs were essentially unremarkable except for his UA was positive for UTI and low platelets.. Due to his reason for being sent to the ER fever and shortness of breath and we found a U TI, a CT of the abdomen was done. CT abdomen showed acute cystitis as well as findings consistent with acute cholecystitis. Patient had a chest x-ray was negative for acute findings. Patient. Patient had a negative COVID test 2 days ago at his penitent[facility]. General surgery was consulted and recommendations were received. Patient admitted to the hospitalist service. Patient was also found to be tachycardic and patient was given antibiotics and fluids. - Differential Diagnosis Fever, shortness of breath, pneumonia, UTI. Critical Care Time: Yes Critical care time in (mins) excluding proc time.: 35 Critical care attestation.: If time is entered above; I have spent that time in minutes in the direct care of this critically ill patient, excluding procedure time. Critical Care Time: 35 minutes ED Disposition Clinical Impression: SOB (shortness of breath), Acute cholecystitis, Tachycardia Fever Qualifiers: Fever type: unspecified Qualified Code(s): R50.9 - Fever, unspecified UTI (urinary tract infection) Qualifiers: Urinary tract infection type: acute cystitis Hematuria presence: with hematuria Qualified Code(s): N30.01 - Acute cystitis with hematuria Disposition: 09 OP ADMIT IP TO THIS HOSP Is pt being admited?: Yes Does the pt Need Aspirin: No Condition: Critical Time of Disposition: 22:14
--- NOTE | 2020-02-02 17:07 | XRay Report ---
CHEST 1 VIEW 02/02/2020 4:44 PM INDICATION / CLINICAL INFORMATION: Shortness of breath. COMPARISON: Chest x-ray on 01/05/2020. FINDINGS: SUPPORT DEVICES: None. HEART / MEDIASTINUM: No significant abnormality. LUNGS / PLEURA: No significant pulmonary or pleural abnormality. No pneumothorax. ADDITIONAL FINDINGS: No significant additional findings. IMPRESSION: 1. No acute findings. Signer Name: Wilbur Castañeda MD Signed: 02/02/2020 5:03 PM Workstation Name: [id number]
[2020-02-02 18:39] LABS: Bacteria,Urine 2+ /HPF (Negative); Bilirubin,Urine NEG (Negative); Blood,Urine SM (Negative); Color,Urine Yellow (Yellow); Mucus,Urine FEW /HPF; Protein,Urine <15 mg/dL mg/dL (Negative); Urobilinogen,Urine < 2.0 mg/dL (<2.0)
[2020-02-02 18:45] LABS: WBC,Urine > 182.0 /HPF (0.0-6.0)
[2020-02-02 19:28] LABS: Basophils % (Auto) 0.2 % (0.0-1.8); Eosinophils % (Auto) 0.2 % (0.0-4.3); Hematocrit 35.9 % (35.5-45.6); Hemoglobin 12.1 gm/dl (11.8-15.2); INR 1.02 (0.87-1.13); Lymphocytes # (Auto) 0.2 K/mm3 (1.2-5.4); Lymphocytes % (Auto) 6.9 % (13.4-35.0); Mean Corpuscular HGB Conc 34 % (32-34); Mean Corpuscular Volume 92 fl (84-94); Monocytes # (Auto) 0.4 K/mm3 (0.0-0.8); Monocytes % (Auto) 15.5 % (0.0-7.3); Partial Thromboplastin Time 28.1 Sec. (24.2-36.6); Red Blood Count 3.91 M/mm3 (3.65-5.03); Red Cell Distribution Width 16.7 % (13.2-15.2)
[2020-02-02 19:31] LABS: Creatine Kinase MB 1.1 ng/mL (0.0-4.0)
[2020-02-02 19:32] LABS: Alanine Aminotransferase 35 units/L (7-56); BUN/Creatinine Ratio 70; Blood Urea Nitrogen 28 mg/dL (9-20); Calcium 8.2 mg/dL (8.4-10.2); Hemolysis Index 17
[2020-02-02 19:40] LABS: Platelet Count 67 K/mm3 (140-440)
[2020-02-02] MEDS ORDERED: SODIUM CHLORIDE 0.9% 1000 ML 1,000 ML IV ONE (20:17)
[2020-02-02] MEDS ORDERED: CEFEPIME/NS 2 GM/100 ML 2 GM/100 ML BAG IV ONE (20:19)
--- NOTE | 2020-02-02 21:44 | Cat Scan Report ---
CT ABDOMEN AND PELVIS WITHOUT IV CONTRAST INDICATION: fever. uti.. COMPARISON: CT 11/11/2018. TECHNIQUE: All CT scans at this facility use dose modulation, automated exposure control, iterative reconstructi on or weight based dosing, when appropriate, to reduce radiation dose to as low as reasonably achieva ble. FINDINGS: Lung Bases: There is a small right pleural effusion with compressive atelectasis in the dependent rig ht lung base. Left lung base is clear. Skeletal System: No acute abnormality. ABDOMEN: Liver: No significant abnormality. Gallbladder: There is a 1.3 cm gallstone. The gallbladder is partially contracted. There is mild gall bladder wall thickening and pericholecystic inflammation. Bile Ducts: No significant abnormality. Pancreas: No significant abnormality. Spleen: Mildly enlarged. Adrenals: Bilateral adrenal nodules are stable. Right Kidney: No significant abnormality. Left Kidney: No significant abnormality. Upper GI tract: Gastrostomy tube is noted in satisfactory position. Lymph Nodes: No significant adenopathy. Aorta: No significant abnormality. Additional Findings: No significant abnormality. PELVIS: Colon: No acute abnormality. Urinary Bladder and Distal Ureters: There is mild bladder wall thickening with minimal perivesical st randing. There is a trace amount of gas in the nondependent bladder. Appendix: No significant abnormality. Lymph Nodes: No significant adenopathy. Additional Findings: Prostate is mildly enlarged. IMPRESSION: 1. Mild bladder wall thickening and perivesical stranding could be seen in cystitis. There is a trac e amount of gas in the bladder which could be related to infection or recent instrumentation. 2. Cholelithiasis. Gallbladder shows mild wall thickening and mild pericholecystic stranding. Correl ate clinically for acute cholecystitis. No common duct dilatation is seen. 3. Additional, incidental findings as above. Signer Name: Jan Knight MD Signed: 02/02/2020 9:40 PM Workstation Name: [id number]
[2020-02-02] MEDS ORDERED: PIPERACILLIN/TAZOBACTAM 3.375 3.375 GM/50 ML BAG IV ONE (22:13)
[2020-02-02] MEDS ORDERED: ACETAMINOPHEN 325 MG TAB PO PRN (23:45)
[2020-02-02] MEDS ORDERED: DEXTROSE 50% IN WATER (25GM) 50 ML SYRINGE IV PRN (23:45)
[2020-02-02] MEDS ORDERED: ONDANSETRON 4 MG/2 ML INJ IV PRN (23:45)
--- NOTE | 2020-02-03 03:53 | History and Physical Report ---
History of Present Illness Date of examination: 02/02/20 Date of admission: 02/02/20 22:16 Chief complaint: Shortness of breath History of present illness: 59-year-old male resident of [facility] senior living was brought in by EMS today for change in mental status. Patient was also said to be short of breath and was also having fever in the senior living. EMS indicates that patient had a negative COVID-19 test about 2 days ago. Patient has significant past medical history of CVA, COPD, diabetes mellitus, quadriplegia, frequent UTIs, hyperlipidemia, history of MRSA infection. Patient's primary care physician is Dr. Obrien. Patient has chronic PEG tube and Tijer[place] catheter in place. Work-up in the emergency room including CT scan of the abdomen and pelvis [facility] reveals acute cholecystitis and also UTI. General surgeon on-call Dr. Shane has been notified by the ER physician. He has also been started on empiric IV antibiotics. Past History Past Medical History: COPD, diabetes, GERD, hypertension, stroke, other (History of MRSA) Past Surgical History: Other (History of humerus fracture) Social history: other (Resides in a senior living) Medications and Allergies Allergies Allergy/AdvReac Type Severity Reaction Status Date / Time No Known Allergies Allergy Verified 02/27/15 00:48 Home Medications Medication Instructions Recorded Confirmed Last Taken Type AtorvaSTATin [Lipitor] 40 mg FEEDTUBE QHS 06/21/16 12/30/19 06/15/19 History Aspirin [Adult Aspirin Regimen] 81 mg FEEDTUBE DAILY 07/14/18 12/30/19 06/15/19 History Multivitamin [Multiple Vitamins] 1 each FEEDTUBE DAILY 07/14/18 12/30/19 06/15/19 History Protein Supplement [Promod] 30 ml FEEDTUBE Q8H 07/14/18 12/30/19 06/15/19 History Acetaminophen [Acetaminophen TAB] 650 mg FEEDTUBE Q4HR PRN 11/11/18 12/30/19 06/15/19 History Gabapentin 300 mg FEEDTUBE BID 11/11/18 12/30/19 06/15/19 History PANTOPRAZOLE SODIUM (nf) [Protonix 40 mg PO DAILY 30 Days granpkt. 01/06/19 12/30/19 06/15/19 Rx GRANULES] Lispro Insulin [HumaLOG] See Protocol SQ BID 12/30/19 12/30/19 Unknown History Sennosides [Senna] 8.6 mg PO DAILY 12/30/19 12/30/19 Unknown History DOXYCYCLINE Hyclate [Vibramycin 100 mg PO BID #12 tab 01/06/20 Unknown Rx CAP] cefUROXime [Ceftin] 500 mg PO Q12HR #12 tablet 01/06/20 Unknown Rx Active Meds: Active Medications Acetaminophen (Tylenol) 650 mg PO Q4H PRN PRN Reason: Pain MILD(1-3)/Fever >100.5/WELLER Dextrose (D50w (25gm) Syringe) 0 ml IV Q30MIN PRN; Protocol PRN Reason: Hypoglycemia Sodium Chloride (Nacl 0.9% 1000 Ml) 1,000 mls @ 125 mls/hr IV DIRECT SHIRA Piperacillin Sod/Tazobactam Sod (Zosyn/Ns 3.375gm/50ml) 3.375 gm in 50 mls @ 100 mls/hr IV Q8HR SHIRA; Protocol Ondansetron HCl (Zofran) 4 mg IV Q8H PRN PRN Reason: Nausea And Vomiting Sodium Chloride (Sodium Chloride Flush Syringe 10 Ml) 10 ml IV BID SHIRA Sodium Chloride (Sodium Chloride Flush Syringe 10 Ml) 10 ml IV PRN PRN PRN Reason: LINE FLUSH Review of Systems ROS unobtainable: due to mental status Exam - Constitutional Vitals: Temp Pulse Resp BP Pulse Ox 99.1 F 97 H 22 103/68 99 02/02/20 21:44 02/02/20 21:30 02/02/20 21:30 02/02/20 21:30 02/02/20 21:30 General appearance: Present: no acute distress, well-nourished - EENT Eyes: Present: PERRL, EOM intact ENT: hearing intact, clear oral mucosa, dentition normal - Neck Neck: Present: supple, normal ROM - Respiratory Respiratory effort: normal Respiratory: bilateral: diminished - Cardiovascular Rhythm: regular Heart Sounds: Present: S1 & S2 - Extremities Extremities: no ischemia, pulses intact, pulses symmetrical, No edema, Full ROM Peripheral Pulses: within normal limits - Abdominal General gastrointestinal: Present: soft, non-tender, non-distended Male genitourinary: Present: normal (Tijer[place] catheter in place) - Integumentary Integumentary: Present: clear, warm, dry, erythema (Lower extremities with multiple scattered skin ulcers on legs and left elbow) - Musculoskeletal Musculoskeletal: other (: Patient moderately contracted in both upper and lower extremities) - Psychiatric Psychiatric: cooperative - Neurologic Neurologic: focal deficits (Quadriplegic), other (Patient is nonverbal) HEART Score - HEART Score Troponin: Troponin T 0.020 ng/mL (0.00-0.029) 02/02/20 18:50 Results - Labs CBC & Chem 7: 02/02/20 18:50 02/03/20 04:49 Labs: Abnormal lab results 02/02/20 02/02/20 02/02/20 Range/Units 18:50 18:50 18:50 WBC 2.8 L (4.5-11.0) K/mm3 RDW 16.7 H (13.2-15.2) % Plt Count 67 L (140-440) K/mm3 Lymph % (Auto) 6.9 L (13.4-35.0) % [place] % (Auto) 15.5 H (0.0-7.3) % Lymph # 0.2 L (1.2-5.4) K/mm3 Seg Neutrophils % 77.2 H (40.0-70.0) % Sodium 134 L (137-145) mmol/L Chloride 94.8 L (98-107) mmol/L BUN 28 H (9-20) mg/dL Creatinine 0.4 L (0.8-1.5) mg/dL Glucose 113 H (75-100) mg/dL Calcium 8.2 L (8.4-10.2) mg/dL Total Creatine Kinase 54 L (55-170) units/L Total Protein 6.0 L (6.3-8.2) g/dL Albumin 3.0 L (3.9-5) g/dL Urine WBC (Auto) (0.0-6.0) /HPF 02/02/20 Range/Units Unknown WBC (4.5-11.0) K/mm3 RDW (13.2-15.2) % Plt Count (140-440) K/mm3 Lymph % (Auto) (13.4-35.0) % [place] % (Auto) (0.0-7.3) % Lymph # (1.2-5.4) K/mm3 Seg Neutrophils % (40.0-70.0) % Sodium (137-145) mmol/L Chloride (98-107) mmol/L BUN (9-20) mg/dL Creatinine (0.8-1.5) mg/dL Glucose (75-100) mg/dL Calcium (8.4-10.2) mg/dL Total Creatine Kinase (55-170) units/L Total Protein (6.3-8.2) g/dL Albumin (3.9-5) g/dL Urine WBC (Auto) > 182.0 H (0.0-6.0) /HPF Assessment and Plan - Patient Problems (1) Acute cholecystitis Current Visit: Yes Status: Acute Plan to address problem: Patient has been made n.p.o. General surgeon Dr. Shane has been notified by the ER physician. (2) UTI (urinary tract infection) Current Visit: Yes Status: Acute Qualifiers: Urinary tract infection type: acute cystitis Hematuria presence: with hematuria Qualified Code(s): N30.01 - Acute cystitis with hematuria Plan to address problem: Patient placed on empiric IV antibiotics. (3) Diabetes Current Visit: No Status: Acute Plan to address problem: We will monitor Accu-Cheks. (4) DVT prophylaxis Current Visit: No Status: Acute Plan to address problem: Patient on sequential compression device. (5) Full code status Current Visit: Yes Status: Acute
[2020-02-03] MEDS ORDERED: PIPERACILLIN/TAZOBACTAM 3.375 3.375 GM/50 ML BAG IV ONE (05:46)
[2020-02-03 05:52] LABS: BUN/Creatinine Ratio 53; Blood Urea Nitrogen 21 mg/dL (9-20); Calcium 8.1 mg/dL (8.4-10.2); Hemolysis Index 5; INR 1.04 (0.87-1.13)
[2020-02-03] MEDS: PIPERACILLIN/TAZOBACTAM 3.375 3.375 GM/50 ML BAG IV SCH ×3 (05:52→22:05)
[2020-02-03] MEDS ORDERED: SODIUM CHLORIDE 0.9% 1000 ML 1,000 ML ONE (08:42)
[2020-02-03] MEDS: SODIUM CHLORIDE 0.9% 1000 ML 1,000 ML IV SCH ×2 (08:53→17:51)
--- NOTE | 2020-02-03 09:43 | Consultation ---
History of Present Illness Consult date: 02/03/20 Reason for consult: other (abnormal CT) Requesting physician: RICHAR ELLIS III Chief complaint: SOB by report - History of present illness History of present illness: 59yo male with multiple medical problems including encephalopathy who currently resides at [facility]. Patient was brought to the emergency room due to patient appearing to be short of breath and having difficulties breathing. Work-up by the emergency department with CT scan showed evidence p ossibly consistent with acute cholecystitis. Patient has a clearly identified urinary tract infection. General surgery was asked to evaluate and manage. Patient is unable to participate in the interview. Past History Past Medical History: COPD, diabetes, GERD, hypertension, stroke, other (History of MRSA) Past Surgical History: Other (History of humerus fracture) Social history: other (Resides in a retirement) Medications and Allergies Allergies Allergy/AdvReac Type Severity Reaction Status Date / Time No Known Allergies Allergy Verified 02/27/15 00:48 Home Medications Medication Instructions Recorded Confirmed Last Taken Type AtorvaSTATin [Lipitor] 40 mg FEEDTUBE QHS 06/21/16 12/30/19 06/15/19 History Aspirin [Adult Aspirin Regimen] 81 mg FEEDTUBE DAILY 07/14/18 12/30/19 06/15/19 History Multivitamin [Multiple Vitamins] 1 each FEEDTUBE DAILY 07/14/18 12/30/19 06/15/19 History Protein Supplement [Promod] 30 ml FEEDTUBE Q8H 07/14/18 12/30/19 06/15/19 History Acetaminophen [Acetaminophen TAB] 650 mg FEEDTUBE Q4HR PRN 11/11/18 12/30/19 06/15/19 History Gabapentin 300 mg FEEDTUBE BID 11/11/18 12/30/19 06/15/19 History PANTOPRAZOLE SODIUM (nf) [Protonix 40 mg PO DAILY 30 Days 01/06/19 12/30/19 06/15/19 Rx GRANULES] Lispro Insulin [HumaLOG] See Protocol SQ BID 12/30/19 12/30/19 Unknown History Sennosides [Senna] 8.6 mg PO DAILY 12/30/19 12/30/19 Unknown History DOXYCYCLINE Hyclate [Vibramycin 100 mg PO BID #12 tab 01/06/20 Unknown Rx CAP] cefUROXime [Ceftin] 500 mg PO Q12HR #12 tablet 01/06/20 Unknown Rx Active Meds: Active Medications Acetaminophen (Tylenol) 650 mg PO Q4H PRN PRN Reason: Pain MILD(1-3)/Fever >100.5/WELLER Dextrose (D50w (25gm) Syringe) 0 ml IV Q30MIN PRN; Protocol PRN Reason: Hypoglycemia Sodium Chloride (Nacl 0.9% 1000 Ml) 1,000 mls @ 125 mls/hr IV DIRECT SHIRA Last Admin: 02/03/20 08:53 Dose: 125 mls/hr Documented by: Piperacillin Sod/Tazobactam Sod (Zosyn/Ns 3.375gm/50ml) 3.375 gm in 50 mls @ 100 mls/hr IV Q8HR SHIRA; Protocol Last Admin: 02/03/20 05:52 Dose: 100 mls/hr Documented by: Ondansetron HCl (Zofran) 4 mg IV Q8H PRN PRN Reason: Nausea And Vomiting Sodium Chloride (Sodium Chloride Flush Syringe 10 Ml) 10 ml IV BID SHIRA Sodium Chloride (Sodium Chloride Flush Syringe 10 Ml) 10 ml IV PRN PRN PRN Reason: LINE FLUSH Review of Systems ROS unobtainable: due to mental status Exam Vital Signs Pulse Ox 97 02/02/20 17:11 - General physical appearance Positive: no distress, no pain, other (Does not communicate. Has a blank stare.) - Eyes Negative: deviation, loss of movement - Respiratory Positive: normal expansion, normal respiratory effort - Cardiovascular Rhythm: regular - Abdomen Abdomen: Present: soft, bowel sounds normal, other (PEG tube in place). Absent: tender, distended, guarding, rigid, wound - Integumentary no rash, no growths, no abnormal pigmentation - Neurologic Neurologic: no alert and oriented to time, place and person, no motor strength and sensation are grossly intact - Psychiatric Psychiatric: other (Unable to communicate) Results - Labs 02/02/20 18:50 02/03/20 04:49 Abnormal lab results 02/02/20 02/02/20 02/02/20 Range/Units 18:50 18:50 18:50 WBC 2.8 L (4.5-11.0) K/mm3 RDW 16.7 H (13.2-15.2) % Plt Count 67 L (140-440) K/mm3 Lymph % (Auto) 6.9 L (13.4-35.0) % [place] % (Auto) 15.5 H (0.0-7.3) % Lymph # 0.2 L (1.2-5.4) K/mm3 Seg Neutrophils % 77.2 H (40.0-70.0) % Sodium 134 L (137-145) mmol/L Chloride 94.8 L (98-107) mmol/L BUN 28 H (9-20) mg/dL Creatinine 0.4 L (0.8-1.5) mg/dL Glucose 113 H (75-100) mg/dL Calcium 8.2 L (8.4-10.2) mg/dL Total Creatine Kinase 54 L (55-170) units/L Total Protein 6.0 L (6.3-8.2) g/dL Albumin 3.0 L (3.9-5) g/dL Urine WBC (Auto) (0.0-6.0) /HPF 02/02/20 02/03/20 Range/Units Unknown 04:49 WBC (4.5-11.0) K/mm3 RDW (13.2-15.2) % Plt Count (140-440) K/mm3 Lymph % (Auto) (13.4-35.0) % [place] % (Auto) (0.0-7.3) % Lymph # (1.2-5.4) K/mm3 Seg Neutrophils % (40.0-70.0) % Sodium (137-145) mmol/L Chloride (98-107) mmol/L BUN 21 H (9-20) mg/dL Creatinine 0.4 L (0.8-1.5) mg/dL Glucose (75-100) mg/dL Calcium 8.1 L (8.4-10.2) mg/dL Total Creatine Kinase (55-170) units/L Total Protein (6.3-8.2) g/dL Albumin (3.9-5) g/dL Urine WBC (Auto) > 182.0 H (0.0-6.0) /HPF Diabetes panel 02/02/20 02/03/20 Range/Units 18:50 04:49 Sodium 134 L 137 (137-145) mmol/L Potassium 4.6 4.4 (3.6-5.0) mmol/L Chloride 94.8 L 100.2 (98-107) mmol/L Carbon Dioxide 27 25 (22-30) mmol/L BUN 28 H 21 H (9-20) mg/dL Creatinine 0.4 L 0.4 L (0.8-1.5) mg/dL Glucose 113 H 92 (75-100) mg/dL Calcium 8.2 L 8.1 L (8.4-10.2) mg/dL AST 33 (5-40) units/L ALT 35 (7-56) units/L Alkaline Phosphatase 107 (35-129) units/L Total Protein 6.0 L (6.3-8.2) g/dL Albumin 3.0 L (3.9-5) g/dL Calcium panel 02/02/20 02/03/20 Range/Units 18:50 04:49 Calcium 8.2 L 8.1 L (8.4-10.2) mg/dL Albumin 3.0 L (3.9-5) g/dL Pituitary panel 02/02/20 02/03/20 Range/Units 18:50 04:49 Sodium 134 L 137 (137-145) mmol/L Potassium 4.6 4.4 (3.6-5.0) mmol/L Chloride 94.8 L 100.2 (98-107) mmol/L Carbon Dioxide 27 25 (22-30) mmol/L BUN 28 H 21 H (9-20) mg/dL Creatinine 0.4 L 0.4 L (0.8-1.5) mg/dL Glucose 113 H 92 (75-100) mg/dL Calcium 8.2 L 8.1 L (8.4-10.2) mg/dL Adrenal panel 02/02/20 02/03/20 Range/Units 18:50 04:49 Sodium 134 L 137 (137-145) mmol/L Potassium 4.6 4.4 (3.6-5.0) mmol/L Chloride 94.8 L 100.2 (98-107) mmol/L Carbon Dioxide 27 25 (22-30) mmol/L BUN 28 H 21 H (9-20) mg/dL Creatinine 0.4 L 0.4 L (0.8-1.5) mg/dL Glucose 113 H 92 (75-100) mg/dL Calcium 8.2 L 8.1 L (8.4-10.2) mg/dL Total Bilirubin 0.60 (0.1-1.2) mg/dL AST 33 (5-40) units/L ALT 35 (7-56) units/L Alkaline Phosphatase 107 (35-129) units/L Total Protein 6.0 L (6.3-8.2) g/dL Albumin 3.0 L (3.9-5) g/dL - Imaging CT scan - abdomen: report reviewed, image reviewed CT scan - pelvis: report reviewed, image reviewed Assessment and Plan - Patient Problems (1) Abnormal CT of the abdomen Current Visit: Yes Status: Acute Plan to address problem: Pt stable. At this point, I have found nothing in the chart to suggest that he has any clinical signs or symptoms of acute cholecystitis. The only piece of information we have is a mildly abnormal CT scan. As there is no information from the retirement suggestive of intolerance of tube feeds or vomiting, etc., I would pursue further testing with a HIDA scan to see if we can find more evidence to support a diagnosis of acute cholecystitis. Once the HIDA scan is completed, I think it would be fine to start tube feeds and give medications via the PEG tube. My suspicion is low that he has actual cholecystitis. We will follow along. Please call with any questions. Time=30min
--- NOTE | 2020-02-03 14:00 | Nuclear Medicine Report ---
NUCLEAR MEDICINE HEPATOBILIARY SCAN INDICATION: Right upper quadrant pain, fever, possible cholecystitis. TECHNIQUE: Radiotracer: Tc-99m Choletec (by IV): 5 mCi. Gallbladder Stimulant: None used. [ ] COMPARISON: CT abdomen and pelvis without contrast from 02/02/2020. FINDINGS: Hepatic activity: Normal. Biliary activity: Normal. Common bile duct activity at 10 minutes. Gallbladder activity: Normal at 20 minutes. Small bowel activity: Normal at 20 minutes. IMPRESSION: 1. No biliary obstruction. Signer Name: Anderson Catalan MD Signed: 02/03/2020 1:55 PM Workstation Name: [id number]
--- NOTE | 2020-02-03 14:15 | Progress Note ---
Assessment and Plan Assessment and plan: 59-year-old male resident of [facility] retirement was brought in by EMS today for change in mental status. Patient was also said to be short of breath and was also having fever in the retirement. EMS indicates that patient had a negative COVID-19 test about 2 days ago. Patient has significant past medical history of CVA with aphasia, COPD, diabetes mellitus, quadriplegia, frequent UTIs, hyperlipidemia, history of MRSA infection. Patient's primary care physician is Dr. Obrien. Patient has chronic PEG tube and Tijerina catheter in place. Work-up in the emergency room including CT scan of the abdomen and pelvis however reveals acute cholecystitis and also UTI. General surgeon on-call Dr. Shane has been notified by the ER physician. He has also been started on empiric IV antibiotics. * Reviewed DATA from prior hospital, * CXR is negative for acute pathology * Patient clinically stable, weaned off from O2, will be discharged back to retirement with oral antibiotics -p.o. Ceftin 500 twice daily and doxycycline 100 twice daily for 6 more days this was last month. (1) Acute Respiratory failure likely underlying COPD Exacerbation Continue nebs improving clinically (2) Acute cholecystitis Current Visit: Yes Status: Acute Plan to address problem: Patient has been made n.p.o. General surgeon Dr. Shane has been notified by the ER physician. HIDA scan pending, awaiting result Surgery states low probability and if HIDA is negative, can start patient on tube feeds Consult [facility] for Tube feed (3) UTI (urinary tract infection) Current Visit: Yes Status: Acute Qualifiers: Urinary tract infection type: acute cystitis Hematuria presence: with hematuria Qualified Code(s): N30.01 - Acute cystitis with hematuria Plan to address problem: Patient placed on empiric IV antibiotics. (4) Diabetes Current Visit: No Status: Acute Plan to address problem: We will monitor Accu-Cheks. (5) Functional quadriplegia, continue supportive care (6) Severe protein calorie malnutrition -Patient has generalized muscle wasting -dietary consulted, patient on tube feeding. (7) Heel ulcer poa: Wound care (8) Thrombocytopenia Stable (9) DVT prophylaxis Current Visit: No Status: Acute Plan to address problem: Patient on sequential compression device. (10) Full code status Current Visit: Yes Status: Acute If no further issues will possible be discharged in am History Interval history: Patient seen and examined resting comfortable, no acute shortness of breath, he is non verbal and lives in a retirement Hospitalist Physical - Physical exam Narrative exam: Physical exam: Gen: acute on chronic ill appearing, cachetic, nonverbal HEENT: NCAT, EOMI, PERRL, OP Clear Neck: supple, no adenopathy, no thyromegaly, no JVD CVS/Heart: RT normal S1S2, pulses present bilaterally Chest/Lungs: diminished bs bilateral, coarse on Symmetrical chest expansion, good air entry bilaterally GI/Abdomen: PEG tube, soft, NTND, good bowel sounds, no guarding or rebound /Bladder: no suprapubic tenderness, no CVA or paraspinal tenderness Extermity/Skin: contracture. MSK: Generalized muscle wasting Neuro: Does not follow any command, contracted right upper extremity Psych: calm - Constitutional Vitals: Temp Pulse Resp BP Pulse Ox 98.8 F 87 19 101/88 98 02/03/20 11:00 02/03/20 11:00 02/03/20 11:00 02/03/20 11:00 02/03/20 11:00 General appearance: Present: no acute distress, well-nourished HEART Score - HEART Score Troponin: Troponin T 0.020 ng/mL (0.00-0.029) 02/02/20 18:50 Results - Labs CBC & Chem 7: 02/02/20 18:50 02/03/20 04:49 Labs: Laboratory Last Values WBC 2.8 K/mm3 (4.5-11.0) L 02/02/20 18:50 RBC 3.91 M/mm3 (3.65-5.03) 02/02/20 18:50 Hgb 12.1 gm/dl (11.8-15.2) 02/02/20 18:50 Hct 35.9 % (35.5-45.6) 02/02/20 18:50 MCV 92 fl (84-94) 02/02/20 18:50 MCH 31 pg (28-32) 02/02/20 18:50 MCHC 34 % (32-34) 02/02/20 18:50 RDW 16.7 % (13.2-15.2) H 02/02/20 18:50 Plt Count 67 K/mm3 (140-440) L 02/02/20 18:50 Lymph % (Auto) 6.9 % (13.4-35.0) L 02/02/20 18:50 [place] % (Auto) 15.5 % (0.0-7.3) H 02/02/20 18:50 Eos % (Auto) 0.2 % (0.0-4.3) 02/02/20 18:50 Baso % (Auto) 0.2 % (0.0-1.8) 02/02/20 18:50 Lymph # 0.2 K/mm3 (1.2-5.4) L 02/02/20 18:50 [place] # 0.4 K/mm3 (0.0-0.8) 02/02/20 18:50 Eos # 0.0 K/mm3 (0.0-0.4) 02/02/20 18:50 Baso # 0.0 K/mm3 (0.0-0.1) 02/02/20 18:50 Seg Neutrophils % 77.2 % (40.0-70.0) H 02/02/20 18:50 Seg Neutrophils # 2.2 K/mm3 (1.8-7.7) 02/02/20 18:50 PT 13.7 Sec. (12.2-14.9) 02/03/20 04:49 INR 1.04 (0.87-1.13) 02/03/20 04:49 APTT 28.1 Sec. (24.2-36.6) 02/02/20 18:50 Sodium 137 mmol/L (137-145) 02/03/20 04:49 Potassium 4.4 mmol/L (3.6-5.0) 02/03/20 04:49 Chloride 100.2 mmol/L (98-107) 02/03/20 04:49 Carbon Dioxide 25 mmol/L (22-30) 02/03/20 04:49 Anion Gap 16 mmol/L 02/03/20 04:49 BUN 21 mg/dL (9-20) H 02/03/20 04:49 Creatinine 0.4 mg/dL (0.8-1.5) L 02/03/20 04:49 Estimated GFR > 60 ml/min 02/03/20 04:49 BUN/Creatinine Ratio 53 % 02/03/20 04:49 Glucose 92 mg/dL (75-100) 02/03/20 04:49 Lactic Acid 1.00 mmol/L (0.7-2.0) 02/02/20 23:14 Calcium 8.1 mg/dL (8.4-10.2) L 02/03/20 04:49 Total Bilirubin 0.60 mg/dL (0.1-1.2) 02/02/20 18:50 AST 33 units/L (5-40) 02/02/20 18:50 ALT 35 units/L (7-56) 02/02/20 18:50 Alkaline Phosphatase 107 units/L (35-129) 02/02/20 18:50 Total Creatine Kinase 54 units/L (55-170) L 02/02/20 18:50 CK-MB (CK-2) 1.1 ng/mL (0.0-4.0) 02/02/20 18:50 CK-MB (CK-2) Rel Index 2.0 (0-4) 02/02/20 18:50 Troponin T 0.020 ng/mL (0.00-0.029) 02/02/20 18:50 Total Protein 6.0 g/dL (6.3-8.2) L 02/02/20 18:50 Albumin 3.0 g/dL (3.9-5) L 02/02/20 18:50 Albumin/Globulin Ratio 1.0 % 02/02/20 18:50 Urine Color Yellow (Yellow) 02/02/20 Unknown Urine Turbidity Cloudy (Clear) 02/02/20 Unknown Urine pH 7.0 (5.0-7.0) 02/02/20 Unknown Ur Specific [place] 1.015 (1.003-1.030) 02/02/20 Unknown Urine Protein <15 mg/dl mg/dL (Negative) 02/02/20 Unknown Urine Glucose (UA) Neg mg/dL (Negative) 02/02/20 Unknown Urine Ketones Neg mg/dL (Negative) 02/02/20 Unknown Urine Blood Sm (Negative) 02/02/20 Unknown Urine Nitrite Pos (Negative) 02/02/20 Unknown Urine Bilirubin Neg (Negative) 02/02/20 Unknown Urine Urobilinogen < 2.0 mg/dL (<2.0) 02/02/20 Unknown Ur Leukocyte Esterase Lg (Negative) 02/02/20 Unknown Urine WBC (Auto) > 182.0 /HPF (0.0-6.0) H 02/02/20 Unknown Urine RBC (Auto) 28.0 /HPF (0.0-6.0) 02/02/20 Unknown Urine Bacteria (Auto) 2+ /HPF (Negative) 02/02/20 Unknown Urine Mucus Few /HPF 02/02/20 Unknown Urine Yeast (Budding) 2+ /HPF 02/02/20 Unknown Microbiology: Microbiology 02/02/20 Unknown Urine,[place] Urine Culture - Preliminary Gram Negative Vinicio 02/02/20 18:50 Peripheral/Venous Blood Culture - Preliminary Culture in Progress 02/02/20 18:50 Peripheral/Venous Blood Culture - Preliminary Culture in Progress [place]/IV: Voiding Method Indwelling Catheter IV Catheter Type [Left Hand] INT / Saline Lock Active Medications - Current Medications Current Medications: Generic Name Dose Route Start Last Admin Trade Name Freq PRN Reason Stop Dose Admin Acetaminophen 650 mg 02/02/20 23:45 Tylenol PO Q4H PRN Pain MILD(1-3)/Fever >100.5/WELLER Dextrose 0 ml 02/02/20 23:45 D50w (25gm) Syringe IV Q30MIN PRN Hypoglycemia Protocol Sodium Chloride 1,000 mls @ 125 mls/hr 02/02/20 23:45 02/03/20 08:53 Nacl 0.9% 1000 Ml IV 125 mls/hr DIRECT SHIRA Administration Piperacillin Sod/Tazobactam Sod 3.375 gm in 50 mls @ 100 mls/hr 02/03/20 06:00 02/03/20 05:52 Zosyn/Ns 3.375gm/50ml IV 100 mls/hr Q8HR SHIRA Administration Protocol Ondansetron HCl 4 mg 02/02/20 23:45 Zofran IV Q8H PRN Nausea And Vomiting Sodium Chloride 10 ml 02/03/20 10:00 02/03/20 10:30 Sodium Chloride Flush Syringe 10 Ml IV 10 ml BID SHIRA Administration Sodium Chloride 10 ml 02/02/20 23:45 Sodium Chloride Flush Syringe 10 Ml IV PRN PRN LINE FLUSH
[2020-02-03] MEDS ORDERED: ALBUTEROL 2.5 MG/3 ML NEBU IH PRN (14:33)
[2020-02-03] MEDS ORDERED: SIMPLE SYRUP 15 ML FEEDTUBE PRN ×2 (15:22)
[2020-02-03] MEDS: IPRATROPIUM/ALBUTEROL SULFATE 3 ML AMPUL.NEB IH SCH ×2 (22:53)
[2020-02-04 05:28] LABS: Hematocrit 30.3 % (35.5-45.6); Hemoglobin 10.1 gm/dl (11.8-15.2); Mean Corpuscular HGB Conc 33 % (32-34); Mean Corpuscular Volume 93 fl (84-94); Red Blood Count 3.24 M/mm3 (3.65-5.03); Red Cell Distribution Width 16.2 % (13.2-15.2)
[2020-02-04] MEDS: PIPERACILLIN/TAZOBACTAM 3.375 3.375 GM/50 ML BAG IV SCH (05:31)
[2020-02-04 05:58] LABS: BUN/Creatinine Ratio 47; Blood Urea Nitrogen 14 mg/dL (9-20); Hemolysis Index 5
[2020-02-04 06:10] LABS: Platelet Count 66 K/mm3 (140-440)
--- NOTE | 2020-02-04 08:23 | Event Note ---
Date: 02/04/20 HIDA is negative. No other evidence to show cholecystitis. May resume use of feeding tube. No surgery needed. Please call with questions.
[2020-02-04] MEDS ORDERED: POTASSIUM CHLORIDE ER 20 MEQ TAB PO ONE (09:00)
[2020-02-04] MEDS: IPRATROPIUM/ALBUTEROL SULFATE 3 ML AMPUL.NEB IH SCH ×3 (09:50→20:38)
[2020-02-04] MEDS ORDERED: POTASSIUM CHLORIDE 20 MEQ PACKET FEEDTUBE ONE (11:00)
--- NOTE | 2020-02-04 11:34 | Progress Note ---
Assessment and Plan Assessment and plan: 59-year-old male resident of [facility] intermediate was brought in by EMS today for change in mental status. Patient was also said to be short of breath and was also having fever in the intermediate. EMS indicates that patient had a negative COVID-19 test about 2 days ago. Patient has significant past medical history of CVA with aphasia, COPD, diabetes mellitus, quadriplegia, frequent UTIs, hyperlipidemia, history of MRSA infection. Patient's primary care physician is Dr. Obrien. Patient has chronic PEG tube and Tijerina catheter in place. Work-up in the emergency room including CT scan of the abdomen and pelvis however reveals acute cholecystitis and also UTI. General surgeon on-call Dr. Shane has been notified by the ER physician. He has also been started on empiric IV antibiotics. * Reviewed DATA from prior hospital, * CXR is negative for acute pathology * Patient clinically stable, weaned off from O2, will be discharged back to intermediate with oral antibiotics -p.o. Ceftin 500 twice daily and doxycycline 100 twice daily for 6 more days this was last month. (1) Acute Respiratory failure likely underlying COPD Exacerbation Continue nebs improving clinically (2) Acute cholecystitis Current Visit: Yes Status: Acute Plan to address problem: Patient has been made n.p.o. General surgeon Dr. Shane has been notified by the ER physician. Surgery states low probability HIDA IS NEGATIVE, Continue patient on tube feeds Consult Manager Study for Tube feed (3) UTI (urinary tract infection) Current Visit: Yes Status: Acute Qualifiers: Urinary tract infection type: acute cystitis Hematuria presence: with hematuria Qualified Code(s): N30.01 - Acute cystitis with hematuria Plan to address problem: Patient placed on empiric IV antibiotics. (4) Diabetes Current Visit: No Status: Acute Plan to address problem: We will monitor Accu-Cheks. (5) Functional quadriplegia, continue supportive care (6) Severe protein calorie malnutrition -Patient has generalized muscle wasting -dietary consulted, patient on tube feeding. (7) Heel ulcer poa: Wound care (8) Thrombocytopenia Stable (9)Leukopenia Monitor closely, ?Underlying disease blood related, vs infection (10) ? Cellulitis continue abx change to cefepime. (11) DVT prophylaxis Current Visit: No Status: Acute Plan to address problem: Patient on sequential compression device. (12) Full code status Current Visit: Yes Status: Acute If no further issues will possible be discharged in am Anticipate discharge in 24 to 48hrs if labs are stabilizing, trying to get more information about the upper ext. History Interval history: Patient seen and examined resting comfortable, no acute shortness of breath, he is non verbal and lives in a intermediate, He is tolerating Tube feeds. Concerned about his left upper ext which is in a cast. Hospitalist Physical - Physical exam Narrative exam: Physical exam: Gen: acute on chronic ill appearing, cachetic, nonverbal HEENT: NCAT, EOMI, PERRL, OP Clear Neck: supple, no adenopathy, no thyromegaly, no JVD CVS/Heart: RT normal S1S2, pulses present bilaterally Chest/Lungs: diminished bs bilateral, coarse on Symmetrical chest expansion, good air entry bilaterally GI/Abdomen: PEG tube, soft, NTND, good bowel sounds, no guarding or rebound /Bladder: no suprapubic tenderness, no CVA or paraspinal tenderness Extermity/Skin: contracture. left upper ext with in cast, edema and weeping of the extremities MSK: Generalized muscle wasting Neuro: Does not follow any command, contracted right upper extremity Psych: calm - Constitutional Vitals: Temp Pulse Resp BP Pulse Ox 98.1 F 93 H 18 101/61 91 02/04/20 08:41 02/04/20 08:41 02/04/20 09:30 02/04/20 08:41 02/04/20 08:41 General appearance: Present: no acute distress, well-nourished HEART Score - HEART Score Troponin: Troponin T 0.020 ng/mL (0.00-0.029) 02/02/20 18:50 Results - Labs CBC & Chem 7: 02/04/20 04:17 02/04/20 04:17 Labs: Laboratory Last Values WBC 1.5 K/mm3 (4.5-11.0) L* 02/04/20 04:17 RBC 3.24 M/mm3 (3.65-5.03) L 02/04/20 04:17 Hgb 10.1 gm/dl (11.8-15.2) L 02/04/20 04:17 Hct 30.3 % (35.5-45.6) L 02/04/20 04:17 MCV 93 fl (84-94) 02/04/20 04:17 MCH 31 pg (28-32) 02/04/20 04:17 MCHC 33 % (32-34) 02/04/20 04:17 RDW 16.2 % (13.2-15.2) H 02/04/20 04:17 Plt Count 66 K/mm3 (140-440) L 02/04/20 04:17 Lymph % (Auto) 6.9 % (13.4-35.0) L 02/02/20 18:50 [place] % (Auto) 15.5 % (0.0-7.3) H 02/02/20 18:50 Eos % (Auto) 0.2 % (0.0-4.3) 02/02/20 18:50 Baso % (Auto) 0.2 % (0.0-1.8) 02/02/20 18:50 Lymph # 0.2 K/mm3 (1.2-5.4) L 02/02/20 18:50 [place] # 0.4 K/mm3 (0.0-0.8) 02/02/20 18:50 Eos # 0.0 K/mm3 (0.0-0.4) 02/02/20 18:50 Baso # 0.0 K/mm3 (0.0-0.1) 02/02/20 18:50 Seg Neutrophils % 77.2 % (40.0-70.0) H 02/02/20 18:50 Seg Neutrophils # 2.2 K/mm3 (1.8-7.7) 02/02/20 18:50 PT 13.7 Sec. (12.2-14.9) 02/03/20 04:49 INR 1.04 (0.87-1.13) 02/03/20 04:49 APTT 28.1 Sec. (24.2-36.6) 02/02/20 18:50 Sodium 143 mmol/L (137-145) 02/04/20 04:17 Potassium 3.2 mmol/L (3.6-5.0) L D 02/04/20 04:17 Chloride 111.3 mmol/L (98-107) H 02/04/20 04:17 Carbon Dioxide 20 mmol/L (22-30) L 02/04/20 04:17 Anion Gap 15 mmol/L 02/04/20 04:17 BUN 14 mg/dL (9-20) 02/04/20 04:17 Creatinine 0.3 mg/dL (0.8-1.5) L 02/04/20 04:17 Estimated GFR > 60 ml/min 02/04/20 04:17 BUN/Creatinine Ratio 47 % 02/04/20 04:17 Glucose 77 mg/dL (75-100) 02/04/20 04:17 Lactic Acid 1.00 mmol/L (0.7-2.0) 02/02/20 23:14 Calcium 7.0 mg/dL (8.4-10.2) L 02/04/20 04:17 Total Bilirubin 0.60 mg/dL (0.1-1.2) 02/02/20 18:50 AST 33 units/L (5-40) 02/02/20 18:50 ALT 35 units/L (7-56) 02/02/20 18:50 Alkaline Phosphatase 107 units/L (35-129) 02/02/20 18:50 Total Creatine Kinase 54 units/L (55-170) L 02/02/20 18:50 CK-MB (CK-2) 1.1 ng/mL (0.0-4.0) 02/02/20 18:50 CK-MB (CK-2) Rel Index 2.0 (0-4) 02/02/20 18:50 Troponin T 0.020 ng/mL (0.00-0.029) 02/02/20 18:50 Total Protein 6.0 g/dL (6.3-8.2) L 02/02/20 18:50 Albumin 3.0 g/dL (3.9-5) L 02/02/20 18:50 Albumin/Globulin Ratio 1.0 % 02/02/20 18:50 Urine Color Yellow (Yellow) 02/02/20 Unknown Urine Turbidity Cloudy (Clear) 02/02/20 Unknown Urine pH 7.0 (5.0-7.0) 02/02/20 Unknown Ur Specific [place] 1.015 (1.003-1.030) 02/02/20 Unknown Urine Protein <15 mg/dl mg/dL (Negative) 02/02/20 Unknown Urine Glucose (UA) Neg mg/dL (Negative) 02/02/20 Unknown Urine Ketones Neg mg/dL (Negative) 02/02/20 Unknown Urine Blood Sm (Negative) 02/02/20 Unknown Urine Nitrite Pos (Negative) 02/02/20 Unknown Urine Bilirubin Neg (Negative) 02/02/20 Unknown Urine Urobilinogen < 2.0 mg/dL (<2.0) 02/02/20 Unknown Ur Leukocyte Esterase Lg (Negative) 02/02/20 Unknown Urine WBC (Auto) > 182.0 /HPF (0.0-6.0) H 02/02/20 Unknown Urine RBC (Auto) 28.0 /HPF (0.0-6.0) 02/02/20 Unknown Urine Bacteria (Auto) 2+ /HPF (Negative) 02/02/20 Unknown Urine Mucus Few /HPF 02/02/20 Unknown Urine Yeast (Budding) 2+ /HPF 02/02/20 Unknown Nasal Screen MRSA (PCR) Negative (Negative) 02/03/20 19:15 Microbiology: Microbiology 02/02/20 Unknown Urine,[place] Urine Culture - Final Escherichia Coli 02/02/20 18:50 Peripheral/Venous Blood Culture - Preliminary NO GROWTH AFTER 24 HOURS 02/02/20 18:50 Peripheral/Venous Blood Culture - Preliminary NO GROWTH AFTER 24 HOURS [place]/IV: Voiding Method Indwelling Catheter IV Catheter Type [Left Hand] INT / Saline Lock Active Medications - Current Medications Current Medications: Generic Name Dose Route Start Last Admin Trade Name Freq PRN Reason Stop Dose Admin Acetaminophen 650 mg 02/02/20 23:45 Tylenol PO Q4H PRN Pain MILD(1-3)/Fever >100.5/WELLER Albuterol 2.5 mg 02/03/20 14:33 Proventil IH Q4HRT PRN Shortness Of Breath Albuterol/Ipratropium 1 ampul 02/04/20 08:00 02/04/20 09:50 Duoneb *Not For Prn Use* IH 1 ampul TIDRT SHIRA Administration Lipase/Protease/Amylase 1 each 02/03/20 15:22 Pancredonovan Lilly 10,500 Unit FEEDTUBE PRN PRN For Clogged Feeding Tube Dextrose 0 ml 02/02/20 23:45 D50w (25gm) Syringe IV Q30MIN PRN Hypoglycemia Protocol Sodium Chloride 1,000 mls @ 125 mls/hr 02/02/20 23:45 02/03/20 17:51 Nacl 0.9% 1000 Ml IV 125 mls/hr DIRECT SHIRA Administration Cefepime HCl 1 gm in 100 mls @ 200 mls/hr 02/04/20 14:00 Cefepime/Ns 1 Gm/100 Ml IV Q8HR SHIRA Protocol Ondansetron HCl 4 mg 02/02/20 23:45 Zofran IV Q8H PRN Nausea And Vomiting Simple Syrup 15 ml 02/03/20 15:22 Simple Syrup FEEDTUBE PRN PRN Hypoglycemia Simple Syrup 30 ml 02/03/20 15:22 Simple Syrup FEEDTUBE PRN PRN Hypoglycemia Sodium Bicarbonate 325 mg 02/03/20 15:22 Sodium Bicarbonate FEEDTUBE PRN PRN For Clogged Feeding Tube Sodium Chloride 10 ml 02/03/20 10:00 02/04/20 10:46 Sodium Chloride Flush Syringe 10 Ml IV 10 ml BID SHIRA Administration Sodium Chloride 10 ml 02/02/20 23:45 Sodium Chloride Flush Syringe 10 Ml IV PRN PRN LINE FLUSH Nutrition/Malnutrition Assess - Dietary Evaluation Nutrition/Malnutrition Findings: Nutrition Notes Start: 02/03/20 15:12 Freq: Status: Active Protocol: Document 02/04/20 10:47 HNERIK (Rec: 02/04/20 10:48 HENRIK SRW- [email or web address]) Nutrition Notes Need for Assessment generated from: vice president network development,MST Initial or Follow up Brief Note Subjective/Other Information Pt screened for malnutrition risk, chewing difficulty, skin risk (Nicko score:8) and hx of receiving NTR support. RD currently following pt. Nutrition Intervention Follow-Up By: 02/06/20 Additional Comments F/U for TF start/tolerance
[2020-02-04] MEDS: SODIUM CHLORIDE 0.9% 1000 ML 1,000 ML IV SCH (13:10)
[2020-02-04] MEDS: CEFEPIME/NS 1 GM/100 ML 1 GM/100 ML BAG IV SCH ×2 (13:10→21:53)
[2020-02-04] MEDS: LIPASE 10,500/PROTEASE 25,000/AMYLASE 43,750 (UNITS) DR CAP FEEDTUBE PRN ×2 (17:05→18:23)
[2020-02-04] MEDS: SODIUM BICARBONATE 325 MG TAB FEEDTUBE PRN (17:06)
[2020-02-05] MEDS: CEFEPIME/NS 1 GM/100 ML 1 GM/100 ML BAG IV SCH ×2 (05:50→21:58)
[2020-02-05 06:16] LABS: Hematocrit 30.7 % (35.5-45.6); Hemoglobin 10.2 gm/dl (11.8-15.2); Mean Corpuscular HGB Conc 33 % (32-34); Mean Corpuscular Volume 92 fl (84-94); Red Blood Count 3.33 M/mm3 (3.65-5.03); Red Cell Distribution Width 16.4 % (13.2-15.2)
[2020-02-05 06:25] LABS: Platelet Count 68 K/mm3 (140-440)
[2020-02-05 06:35] LABS: BUN/Creatinine Ratio 45; Blood Urea Nitrogen 9 mg/dL (9-20); Hemolysis Index 5
--- NOTE | 2020-02-05 07:49 | Progress Note ---
Assessment and Plan Assessment and plan: 59-year-old male resident of [facility] group home was brought in by EMS today for change in mental status. Patient was also said to be short of breath and was also having fever in the group home. EMS indicates that patient had a negative COVID-19 test about 2 days ago. Patient has significant past medical history of CVA with aphasia, COPD, diabetes mellitus, quadriplegia, frequent UTIs, hyperlipidemia, history of MRSA infection. Patient's primary care physician is Dr. Obrien. Patient has chronic PEG tube and Tijerina catheter in place. Work-up in the emergency room including CT scan of the abdomen and pelvis however reveals acute cholecystitis and also UTI. General surgeon on-call Dr. Shane has been notified by the ER physician. He has also been started on empiric IV antibiotics. * Reviewed DATA from prior hospital, * CXR is negative for acute pathology * Patient clinically stable, weaned off from O2, will be discharged back to group home with oral antibiotics -p.o. Ceftin 500 twice daily and doxycycline 100 twice daily for 6 more days this was last month. 02/04: Patient remains with leukopenia and continues inpatient care. Anticipate discharge in a.m. if WBC count improve. Review of previous pathology report from GI study did not reveal any malignancy or Hpylori (1) Acute Respiratory failure likely underlying COPD Exacerbation Continue nebs improving clinically (2) Acute cholecystitis Current Visit: Yes Status: Acute Plan to address problem: Patient has been made n.p.o. General surgeon Dr. Shane has been notified by the ER physician. Surgery states low probability HIDA IS NEGATIVE, Continue patient on tube feeds Consult Bat Lathe Operator for Tube feed (3) UTI (urinary tract infection) Current Visit: Yes Status: Acute Qualifiers: Urinary tract infection type: acute cystitis Hematuria presence: with hematuria Qualified Code(s): N30.01 - Acute cystitis with hematuria Plan to address problem: Patient placed on empiric IV antibiotics. (4) Diabetes Current Visit: No Status: Acute Plan to address problem: We will monitor Accu-Cheks. (5) Functional quadriplegia, continue supportive care (6) Severe protein calorie malnutrition -Patient has generalized muscle wasting -dietary consulted, patient on tube feeding. (7) Heel ulcer poa: Wound care (8) Thrombocytopenia Stable, chronic (9)Leukopenia Monitor closely, ?Underlying disease blood related, vs infection (10) ? Cellulitis continue abx change to cefepime. (11) DVT prophylaxis Current Visit: No Status: Acute Plan to address problem: Patient on sequential compression device. (12) Full code status Current Visit: Yes Status: Acute If no further issues will possible be discharged in am Anticipate discharge in 24 if labs are stabilizing, trying to get more information about the upper ext. History Interval history: Patient seen and examined resting comfortable, no acute shortness of breath, he is non verbal and lives in a group home, much more stable today Hospitalist Physical - Physical exam Narrative exam: Physical exam: Gen: acute on chronic ill appearing, cachetic, nonverbal HEENT: NCAT, EOMI, PERRL, OP Clear Neck: supple, no adenopathy, no thyromegaly, no JVD CVS/Heart: RT normal S1S2, pulses present bilaterally Chest/Lungs: diminished bs bilateral, coarse on Symmetrical chest expansion, good air entry bilaterally GI/Abdomen: PEG tube, soft, NTND, good bowel sounds, no guarding or rebound /Bladder: no suprapubic tenderness, no CVA or paraspinal tenderness Extermity/Skin: contracture. left upper ext with in cast, edema and weeping of the extremities MSK: Generalized muscle wasting Neuro: Does not follow any command, contracted right upper extremity Psych: calm - Constitutional Vitals: Temp Pulse Resp BP Pulse Ox 98.2 F 90 20 122/63 100 02/05/20 03:41 02/05/20 03:41 02/05/20 03:41 02/05/20 03:41 02/05/20 03:41 General appearance: Present: no acute distress, well-nourished HEART Score - HEART Score Troponin: Troponin T 0.020 ng/mL (0.00-0.029) 02/02/20 18:50 Results - Labs CBC & Chem 7: 02/05/20 05:49 02/05/20 05:49 Labs: Laboratory Last Values WBC 1.7 K/mm3 (4.5-11.0) L* 02/05/20 05:49 RBC 3.33 M/mm3 (3.65-5.03) L 02/05/20 05:49 Hgb 10.2 gm/dl (11.8-15.2) L 02/05/20 05:49 Hct 30.7 % (35.5-45.6) L 02/05/20 05:49 MCV 92 fl (84-94) 02/05/20 05:49 MCH 31 pg (28-32) 02/05/20 05:49 MCHC 33 % (32-34) 02/05/20 05:49 RDW 16.4 % (13.2-15.2) H 02/05/20 05:49 Plt Count 68 K/mm3 (140-440) L 02/05/20 05:49 Lymph % (Auto) 6.9 % (13.4-35.0) L 02/02/20 18:50 [place] % (Auto) 15.5 % (0.0-7.3) H 02/02/20 18:50 Eos % (Auto) 0.2 % (0.0-4.3) 02/02/20 18:50 Baso % (Auto) 0.2 % (0.0-1.8) 02/02/20 18:50 Lymph # 0.2 K/mm3 (1.2-5.4) L 02/02/20 18:50 [place] # 0.4 K/mm3 (0.0-0.8) 02/02/20 18:50 Eos # 0.0 K/mm3 (0.0-0.4) 02/02/20 18:50 Baso # 0.0 K/mm3 (0.0-0.1) 02/02/20 18:50 Seg Neutrophils % 77.2 % (40.0-70.0) H 02/02/20 18:50 Seg Neutrophils # 2.2 K/mm3 (1.8-7.7) 02/02/20 18:50 PT 13.7 Sec. (12.2-14.9) 02/03/20 04:49 INR 1.04 (0.87-1.13) 02/03/20 04:49 APTT 28.1 Sec. (24.2-36.6) 02/02/20 18:50 Sodium 143 mmol/L (137-145) 02/05/20 05:49 Potassium 3.6 mmol/L (3.6-5.0) 02/05/20 05:49 Chloride 111.7 mmol/L (98-107) H 02/05/20 05:49 Carbon Dioxide 22 mmol/L (22-30) 02/05/20 05:49 Anion Gap 13 mmol/L 02/05/20 05:49 BUN 9 mg/dL (9-20) 02/05/20 05:49 Creatinine 0.2 mg/dL (0.8-1.5) L 02/05/20 05:49 Estimated GFR > 60 ml/min 02/05/20 05:49 BUN/Creatinine Ratio 45 % 02/05/20 05:49 Glucose 97 mg/dL (75-100) 02/05/20 05:49 Lactic Acid 1.00 mmol/L (0.7-2.0) 02/02/20 23:14 Calcium 7.0 mg/dL (8.4-10.2) L 02/05/20 05:49 Total Bilirubin 0.60 mg/dL (0.1-1.2) 02/02/20 18:50 AST 33 units/L (5-40) 02/02/20 18:50 ALT 35 units/L (7-56) 02/02/20 18:50 Alkaline Phosphatase 107 units/L (35-129) 02/02/20 18:50 Total Creatine Kinase 54 units/L (55-170) L 02/02/20 18:50 CK-MB (CK-2) 1.1 ng/mL (0.0-4.0) 02/02/20 18:50 CK-MB (CK-2) Rel Index 2.0 (0-4) 02/02/20 18:50 Troponin T 0.020 ng/mL (0.00-0.029) 02/02/20 18:50 Total Protein 6.0 g/dL (6.3-8.2) L 02/02/20 18:50 Albumin 3.0 g/dL (3.9-5) L 02/02/20 18:50 Albumin/Globulin Ratio 1.0 % 02/02/20 18:50 Urine Color Yellow (Yellow) 02/02/20 Unknown Urine Turbidity Cloudy (Clear) 02/02/20 Unknown Urine pH 7.0 (5.0-7.0) 02/02/20 Unknown Ur Specific [place] 1.015 (1.003-1.030) 02/02/20 Unknown Urine Protein <15 mg/dl mg/dL (Negative) 02/02/20 Unknown Urine Glucose (UA) Neg mg/dL (Negative) 02/02/20 Unknown Urine Ketones Neg mg/dL (Negative) 02/02/20 Unknown Urine Blood Sm (Negative) 02/02/20 Unknown Urine Nitrite Pos (Negative) 02/02/20 Unknown Urine Bilirubin Neg (Negative) 02/02/20 Unknown Urine Urobilinogen < 2.0 mg/dL (<2.0) 02/02/20 Unknown Ur Leukocyte Esterase Lg (Negative) 02/02/20 Unknown Urine WBC (Auto) > 182.0 /HPF (0.0-6.0) H 02/02/20 Unknown Urine RBC (Auto) 28.0 /HPF (0.0-6.0) 02/02/20 Unknown Urine Bacteria (Auto) 2+ /HPF (Negative) 02/02/20 Unknown Urine Mucus Few /HPF 02/02/20 Unknown Urine Yeast (Budding) 2+ /HPF 02/02/20 Unknown Nasal Screen MRSA (PCR) Negative (Negative) 02/03/20 19:15 Microbiology: Microbiology 02/02/20 18:50 Peripheral/Venous Blood Culture - Preliminary NO GROWTH AFTER 48 HOURS 02/02/20 18:50 Peripheral/Venous Blood Culture - Preliminary NO GROWTH AFTER 48 HOURS 02/02/20 Unknown Urine,[place] Urine Culture - Final Escherichia Coli [place]/IV: Voiding Method Indwelling Catheter IV Catheter Type [Right Upper INT / Saline Lock arm] IV Catheter Type [Left Hand] INT / Saline Lock Active Medications - Current Medications Current Medications: Generic Name Dose Route Start Last Admin Trade Name Freq PRN Reason Stop Dose Admin Acetaminophen 650 mg 02/02/20 23:45 Tylenol PO Q4H PRN Pain MILD(1-3)/Fever >100.5/WELLER Albuterol 2.5 mg 02/03/20 14:33 Proventil IH Q4HRT PRN Shortness Of Breath Albuterol/Ipratropium 1 ampul 02/04/20 08:00 02/04/20 20:38 Duoneb *Not For Prn Use* IH 1 ampul TIDRT SHIRA Administration Lipase/Protease/Amylase 1 each 02/03/20 15:22 02/04/20 18:23 Pancreaze 10,500 Unit FEEDTUBE 1 each PRN PRN Administration For Clogged Feeding Tube Dextrose 0 ml 02/02/20 23:45 D50w (25gm) Syringe IV Q30MIN PRN Hypoglycemia Protocol Sodium Chloride 1,000 mls @ 125 mls/hr 02/02/20 23:45 02/04/20 13:10 Nacl 0.9% 1000 Ml IV 125 mls/hr DIRECT SHIRA Administration Cefepime HCl 1 gm in 100 mls @ 200 mls/hr 02/04/20 14:00 02/05/20 05:50 Cefepime/Ns 1 Gm/100 Ml IV 200 mls/hr Q8HR SHIRA Administration Protocol Ondansetron HCl 4 mg 02/02/20 23:45 Zofran IV Q8H PRN Nausea And Vomiting Simple Syrup 15 ml 02/03/20 15:22 Simple Syrup FEEDTUBE PRN PRN Hypoglycemia Simple Syrup 30 ml 02/03/20 15:22 Simple Syrup FEEDTUBE PRN PRN Hypoglycemia Sodium Bicarbonate 325 mg 02/03/20 15:22 02/04/20 17:06 Sodium Bicarbonate FEEDTUBE 325 mg PRN PRN Administration For Clogged Feeding Tube Sodium Chloride 10 ml 02/03/20 10:00 02/04/20 21:54 Sodium Chloride Flush Syringe 10 Ml IV 10 ml BID SHIRA Administration Sodium Chloride 10 ml 02/02/20 23:45 Sodium Chloride Flush Syringe 10 Ml IV PRN PRN LINE FLUSH Nutrition/Malnutrition Assess - Dietary Evaluation Nutrition/Malnutrition Findings: Nutrition Notes Start: 02/03/20 15:12 Freq: Status: Active Protocol: Document 02/04/20 10:47 HENRIK (Rec: 02/04/20 10:48 HENRIK SRW- [email or web address]) Nutrition Notes Need for Assessment generated from: jordan worker,MST Initial or Follow up Brief Note Subjective/Other Information Pt screened for malnutrition risk, chewing difficulty, skin risk (Nicko score:8) and hx of receiving NTR support. RD currently following pt. Nutrition Intervention Follow-Up By: 02/06/20 Additional Comments F/U for TF start/tolerance
[2020-02-05] MEDS: IPRATROPIUM/ALBUTEROL SULFATE 3 ML AMPUL.NEB IH SCH ×3 (08:43→20:21)
[2020-02-05] MEDS: SODIUM BICARBONATE 325 MG TAB FEEDTUBE PRN ×2 (15:02→18:37)
[2020-02-05] MEDS: LIPASE 10,500/PROTEASE 25,000/AMYLASE 43,750 (UNITS) DR CAP FEEDTUBE PRN ×2 (15:02→18:37)
[2020-02-05] MEDS: cefTRIAXone/NS 1 GM/50 ML 1 GM/50 ML BAG IV SCH (16:16)
[2020-02-06 04:38] LABS: Hematocrit 31.4 % (35.5-45.6); Hemoglobin 10.5 gm/dl (11.8-15.2); Mean Corpuscular HGB Conc 33 % (32-34); Mean Corpuscular Volume 92 fl (84-94); Red Cell Distribution Width 16.6 % (13.2-15.2)
[2020-02-06 04:40] LABS: Platelet Count 79 K/mm3 (140-440)
[2020-02-06 04:56] LABS: BUN/Creatinine Ratio 27; Blood Urea Nitrogen 8 mg/dL (9-20); Calcium 8.3 mg/dL (8.4-10.2); Hemolysis Index 6
[2020-02-06] MEDS: SODIUM CHLORIDE 0.9% 1000 ML 1,000 ML IV SCH (05:43)
--- NOTE | 2020-02-06 08:08 | Discharge Summary ---
Providers - Providers Date of Admission: 02/02/20 22:16 Attending physician: MERCED HUANG MD 02/02/20 22:12 Consult to Physician [CONS] Routine Comment: Dr. Ellison spoke with Dr. Shane @ 2201 Consulting Provider: CARMEN SHANE Physician Instructions: Reason For Exam: poss rod 02/03/20 14:12 Consult to Dietitian/Nutrition [CONS] Routine Physician Instructions: Reason For Exam: Reason for Consult: Write/Manage Tube Feeding 02/03/20 19:32 Consult to Wound/ET Nurse [CONS] Routine Reason For Exam: wound eval 02/05/20 19:00 Consult to Physician [CONS] Routine Comment: Consulting Provider: BLANCA RAMOS Physician Instructions: Reason For Exam: clogged tube Primary care physician: TICKET PRINTER Hospitalization Reason for admission: Abdominal pain Condition: Stable Hospital course: 59-year-old male resident of [facility] was brought in by EMS today for change in mental status. Patient was also said to be short of breath and was also having fever in the retirement. EMS indicates that patient had a negative COVID-19 test about 2 days ago. Patient has significant past medical history of CVA with aphasia, COPD, diabetes mellitus, quadriplegia, frequent UTIs, hyperlipidemia, history of MRSA infection. Patient's primary care physician is Dr. Obrien. Patient has chronic PEG tube and Tijerina catheter in place. Work-up in the emergency room including CT scan of the abdomen and pelvis however reveals acute cholecystitis and also UTI. General surgeon on-call Dr. Shane has been notified by the ER physician. He has also been started on empiric IV antibiotics. * Reviewed DATA from prior hospital, * CXR is negative for acute pathology * Patient clinically stable, weaned off from O2, will be discharged back to retirement with oral antibiotics -p.o. Ceftin 500 twice daily and doxycycline 100 twice daily for 6 more days this was last month. 02/04: Patient remains with leukopenia and continues inpatient care. Anticipate discharge in a.m. if WBC count improve. Review of previous pathology report from GI study did not reveal any malignancy or Hpylori 02/05: Patient clinically stable today mental status much improved. He is planned for discharge today brief summary of his stay he was admitted with abdominal pain and some respiratory distress initially thought to have acute cholecystitis but this was negative per review and also HIDA scan testing. The medical service team was treated for acute cystitis no evidence of sepsis was noted. The patient also was noted to have a clogged PEG tube while this was declogged using medication the following day became clogged again and required changed which was done by GI. (1) Acute Respiratory failure likely underlying COPD Exacerbation (2) Cholelithasis without acute cholecystitis per HIDA (3) UTI (urinary tract infection) (4) Diabetes (5) Functional quadriplegia, continue supportive care (6) Severe protein calorie malnutrition (7) Heel ulcer poa: Wound care (8) Thrombocytopenia Stable, chronic (9)Leukopenia-RESOLVED Monitor closely, ?Underlying disease blood related, vs infection (10) Cellulitis continue abx change to cefepime. (11) Peg malfuntion. GI consulted to assisted (12) SIRS without organ dysfunction BUT NO SEPSIS [facility]: [facility] Time spent for discharge: 35 mins Core Measure Documentation - Palliative Care Palliative Care/ Comfort Measures: Not Applicable - Core Measures Any of the following diagnoses?: none Exam - Physical Exam Narrative exam: Physical exam: Gen: acute on chronic ill appearing, cachetic, nonverbal HEENT: NCAT, EOMI, PERRL, OP Clear Neck: supple, no adenopathy, no thyromegaly, no JVD CVS/Heart: RT normal S1S2, pulses present bilaterally Chest/Lungs: diminished bs bilateral, coarse on Symmetrical chest expansion, good air entry bilaterally GI/Abdomen: PEG tube, soft, NTND, good bowel sounds, no guarding or rebound /Bladder: no suprapubic tenderness, no CVA or paraspinal tenderness Extermity/Skin: contracture. left upper ext with in cast, edema and weeping of the extremities MSK: Generalized muscle wasting Neuro: Does not follow any command, contracted right upper extremity Psych: calm - Constitutional Vitals: Temp Pulse Resp BP Pulse Ox 98.2 F 87 18 111/64 98 02/06/20 03:36 02/06/20 03:36 02/06/20 03:36 02/06/20 03:36 02/06/20 03:36 Plan Activity: advance as tolerated, fall precautions Diet: low fat, low salt Special Instructions: record daily weights, record daily BP diary Follow up with: PRIMARY CAREMD [Primary Care Provider] - 3-5 Days CATRACHO JOLLY MD [Staff Physician] - 7 Days CARMEN SHANE MD [Staff Physician] - 7 Days Prescriptions: cephALEXin [Keflex] 500 mg PO Q12HR #10 cap
[2020-02-06] MEDS: cefTRIAXone/NS 1 GM/50 ML 1 GM/50 ML BAG IV SCH (09:11)
[2020-02-06] MEDS: IPRATROPIUM/ALBUTEROL SULFATE 3 ML AMPUL.NEB IH SCH (09:18)
[2020-02-06] MEDS: LIPASE 10,500/PROTEASE 25,000/AMYLASE 43,750 (UNITS) DR CAP FEEDTUBE PRN (11:02)
[2020-02-06] MEDS: SODIUM BICARBONATE 325 MG TAB FEEDTUBE PRN (11:02)
[2020-02-06 12:14] VITALS: BP 140/50
--- NOTE | 2020-02-06 12:16 | Post Operative Note ---
Pre-op diagnosis: Clogged G-tube Post-op diagnosis: same Findings: 1. Clogged angle bolster G-tube. Balloon deflated and tube removed atraumatically. 20Fr BRUCE replacement G-tube placed without difficulty, and balloon inflated with 9 ml H2O. Bumper fixed at 4 cm. Tube flushed readily. 2. G-tube site macerated, but no discharge or drainage noted. Procedure: PEG replacement Anesthesia: none Surgeon: BLANCA RAMOS Estimated blood loss: none Pathology: none Condition: stable Disposition: floor (May resume TF.)
== END 2020-02-06 16:02 | DRG 981 ==
LOC: ED 13:57 → 4A 22:16
PROVIDERS: ADMIT Internal Medicine Geriatric Medicine; ATTEND Internal Medicine
PROC: 0DP63UZ Removal of Feeding Device from Stomach, Percutaneous Approach (ICD-10-PCS; principal; 2020-02-06)
PROC: 0DH63UZ Insertion of Feeding Device into Stomach, Percutaneous Approach (ICD-10-PCS; 2020-02-06)
DX: N30.01 Acute cystitis with hematuria (principal); R53.2 Functional quadriplegia; J96.00 Acute respiratory failure, unspecified whether with hypoxia or hypercapnia; E43 Unspecified severe protein-calorie malnutrition; K94.23 Gastrostomy malfunction; L03.90 Cellulitis, unspecified; J44.1 Chronic obstructive pulmonary disease with (acute) exacerbation; L97.409 Non-pressure chronic ulcer of unspecified heel and midfoot with unspecified severity; K80.20 Calculus of gallbladder without cholecystitis without obstruction; Y83.8 Other surgical procedures as the cause of abnormal reaction of the patient, or of later complication, without mention of misadventure at the time of the procedure; E11.9 Type 2 diabetes mellitus without complications; D72.819 Decreased white blood cell count, unspecified; K21.9 Gastro-esophageal reflux disease without esophagitis; D69.6 Thrombocytopenia, unspecified; Z86.73 Personal history of transient ischemic attack (TIA), and cerebral infarction without residual deficits; Z86.14 Personal history of Methicillin resistant Staphylococcus aureus infection; Z68.25 Body mass index [BMI] 25.0-25.9, adult; Z79.82 Long term (current) use of aspirin; Z79.899 Other long term (current) drug therapy; Z20.828 Contact with and (suspected) exposure to other viral communicable diseases
CPT/HCPCS: 36415; 71045; 74176; 78226; 80048; 80053; 81001; 82140; 82550; 82553; 82962; 84484; 85025; 85027; 85610; 85730; 87040; 87076; 87086; 87186; 87641; 93005; 94640; G0378; A9537; J0692; J0696; J2543; J7030

== ENCOUNTER 2020-12-11 08:50 | Emergency (ER) | payer MEDICARE ==
--- NOTE | 2020-12-11 10:10 | Emergency Department Report ---
ED General Adult HPI - General Chief complaint: Tube Replacement Stated complaint: G-TUBE REPLACEMENT Time Seen by Provider: 12/11/20 09:07 Source: EMS Mode of arrival: Stretcher Limitations: Physical Limitation - History of Present Illness Initial comments: 60-year-old male presents to ED from alf for G-tube replacement. [facility] staff saw that G-tube had fallen out at around 4:30 AM. They attempted replacement, but were unsuccessful. Patient transported to the ED. -: This morning Location: abdomen Improves with: none Worsens with: none - Related Data Home Medications Medication Instructions Recorded Confirmed Last Taken AtorvaSTATin [Lipitor] 40 mg FEEDTUBE QHS 06/21/16 02/03/20 06/15/19 Aspirin [Adult Aspirin Regimen] 81 mg FEEDTUBE DAILY 07/14/18 02/03/20 06/15/19 Multivitamin [Multiple Vitamins] 1 each FEEDTUBE DAILY 07/14/18 02/03/20 06/15/19 Protein Supplement [Promod] 30 ml FEEDTUBE Q8H 07/14/18 02/03/20 06/15/19 Acetaminophen [Acetaminophen TAB] 650 mg FEEDTUBE Q4HR PRN 11/11/18 02/03/20 06/15/19 Gabapentin 300 mg FEEDTUBE BID 11/11/18 02/03/20 06/15/19 Lispro Insulin [HumaLOG] See Protocol SQ BID 12/30/19 02/03/20 Unknown Sennosides [Senna] 8.6 mg PO DAILY 12/30/19 02/03/20 Unknown Previous Rx's Medication Instructions Recorded Last Taken Type PANTOPRAZOLE SODIUM (nf) [Protonix 40 mg PO DAILY 30 Days 01/06/19 06/15/19 Rx GRANULES] cefUROXime [Ceftin] 500 mg PO Q12HR #12 tablet 01/06/20 Unknown Rx cephALEXin [Keflex] 500 mg PO Q12HR #10 cap 02/06/20 Unknown Rx Allergies Allergy/AdvReac Type Severity Reaction Status Date / Time No Known Allergies Allergy Verified 02/27/15 00:48 ED Review of Systems ROS: Stated complaint: G-TUBE REPLACEMENT Other details as noted in HPI Comment: Unobtainable due to pts medical conditions Gastrointestinal: as per HPI ED Past Medical Hx - Past Medical History Hx Hypertension: Yes Hx CVA: Yes Hx Congestive Heart Failure: No (unknown) Hx Diabetes: Yes Hx GERD: Yes Hx Renal Disease: Yes Hx Asthma: No (unknown) Hx COPD: Yes Hx HIV: No Additional medical history: [place] Cath, humerus fracture, aphasia, quadraplegia, MRSA - Surgical History Additional Surgical History: PEG - Social History Smoking Status: Unknown if ever smoked Substance Use Type: None - Medications Home Medications: Home Medications Medication Instructions Recorded Confirmed Last Taken Type AtorvaSTATin [Lipitor] 40 mg FEEDTUBE QHS 06/21/16 02/03/20 06/15/19 History Aspirin [Adult Aspirin Regimen] 81 mg FEEDTUBE DAILY 07/14/18 02/03/20 06/15/19 History Multivitamin [Multiple Vitamins] 1 each FEEDTUBE DAILY 07/14/18 02/03/20 06/15/19 History Protein Supplement [Promod] 30 ml FEEDTUBE Q8H 07/14/18 02/03/20 06/15/19 History Acetaminophen [Acetaminophen TAB] 650 mg FEEDTUBE Q4HR PRN 11/11/18 02/03/20 06/15/19 History Gabapentin 300 mg FEEDTUBE BID 11/11/18 02/03/20 06/15/19 History PANTOPRAZOLE SODIUM (nf) [Protonix 40 mg PO DAILY 30 Days armani. 01/06/19 02/03/20 06/15/19 Rx GRANULES] Lispro Insulin [HumaLOG] See Protocol SQ BID 12/30/19 02/03/20 Unknown History Sennosides [Senna] 8.6 mg PO DAILY 12/30/19 02/03/20 Unknown History cefUROXime [Ceftin] 500 mg PO Q12HR #12 tablet 01/06/20 02/03/20 Unknown Rx cephALEXin [Keflex] 500 mg PO Q12HR #10 cap 02/06/20 Unknown Rx ED Physical Exam - General Limitations: Physical Limitation General appearance: alert, in no apparent distress - Head Head exam: Present: atraumatic, normocephalic - Eye Eye exam: Present: normal appearance, EOMI - ENT ENT exam: Present: mucous membranes moist - Neck Neck exam: Present: normal inspection - Respiratory Respiratory exam: Present: normal lung sounds bilaterally. Absent: respiratory distress - Cardiovascular Cardiovascular Exam: Present: regular rate, normal rhythm - GI/Abdominal GI/Abdominal exam: Present: soft, other (G-tube site and left upper quadrant appears clean and intact). Absent: distended - Extremities Exam Extremities exam: Present: other (Contractures noted) - Neurological Exam Neurological exam: Present: alert, other (Nonverbal) - Psychiatric Psychiatric exam: Present: normal affect, normal mood - Skin Skin exam: Present: warm, dry, intact, normal color ED Course Vital Signs 12/11/20 12/11/20 12/11/20 09:00 09:15 10:10 Temperature 98.1 F Pulse Rate 73 78 Respiratory 14 16 16 Rate Blood Pressure 102/68 Blood Pressure 95/60 [Left] O2 Sat by Pulse 96 96 Oximetry - Feeding Tube Replacement Reason for Replacement: fell out Type of Tube: gastrostomy Insertion Site Prior to Procedure: clean Tube Used for Reinsertion: other [place] Tube Size (F): 14 Balloon Size (mls): 5 Verification of Placement: gastrograffin injection Tube Secured by: G-tube attachment device Patient Tolerated Procedure: well Critical care attestation.: If time is entered above; I have spent that time in minutes in the direct care of this critically ill patient, excluding procedure time. ED Disposition Clinical Impression: Encounter for feeding tube placement Disposition: DC-01 TO HOME OR SELFCARE Is pt being admited?: No Condition: Stable Instructions: PEG Tube Home Guide, [id number] Referrals: PRIMARY CARE, [Referring] - as needed Time of Disposition: 10:46
--- NOTE | 2020-12-11 10:39 | XRay Report ---
X-RAY G-TUBE STUDY HISTORY: PEG tube placement COMPARISON: None. FINDINGS: 2 AP views of the abdomen are presented. The initial image demonstrates a PEG tube in the e pigastric region. A second image was obtained following injection of 50 cc of Omnipaque 300 through t he PEG tube. The contrast agent outlines the distal stomach and multiple small bowel loops. There is no evidence for extravasation or obstruction. The bowel gas pattern is unremarkable. Large 1.3 cm gal lstone is noted in the right quadrant. IMPRESSION: The peg tube terminates in the stomach without evidence of obstruction or extravasation. Signer Name: Ty Osborne Jr, MD Signed: 12/11/2020 10:35 AM Workstation Name: [id number]
[2020-12-11 13:35] VITALS: BP 98/66
== END 2020-12-11 14:01 | disposition home or self-care (01) ==
LOC: ED 08:50
DX: K94.29 Other complications of gastrostomy (principal); I10 Essential (primary) hypertension; E11.9 Type 2 diabetes mellitus without complications; I25.2 Old myocardial infarction; K21.9 Gastro-esophageal reflux disease without esophagitis; J44.9 Chronic obstructive pulmonary disease, unspecified; Z79.899 Other long term (current) drug therapy; Z98.890 Other specified postprocedural states; Z86.73 Personal history of transient ischemic attack (TIA), and cerebral infarction without residual deficits
CPT/HCPCS: 43762; 74018; 99282; Q9967

== ENCOUNTER 2021-03-31 17:51 | Emergency (ER) | payer MEDICARE ==
--- NOTE | 2021-03-31 18:15 | Emergency Department Report ---
ED Fall HPI - General Chief Complaint: Fall Stated Complaint: FALL/HEAD WOUND Time Seen by Provider: 03/31/21 18:00 Source: patient Mode of arrival: Stretcher - History of Present Illness Initial Comments: Chief complaint: Fall out of bed HPI: This is a 60-year-old male with history of hypertension, GI bleed, diabetes mellitus, CVA, aphasia, sacral decubitus ulcer, COPD, G-tube dependence, acquired quadriplegia who presents with fall from 2 to 3 feet height out of bed. Patient is unable to give history due to aphasia. He is able to move his left arm weakly. He has superficial bruise to forehead. History obtained from documentation from prison facility as well as electronic medical record. MD Complaint: fall -: This afternoon Fall From: out of bed When Fall Occurred: unsure Fall Witnessed: yes, by living facility s Place Fall Occurred: prison/[facility]NF Loss of Consciousness: unsure Prolonged Down Time?: unclear Location: head (Bruising noted to the head) - Related Data Home Medications Medication Instructions Recorded Confirmed Last Taken AtorvaSTATin [Lipitor] 40 mg FEEDTUBE QHS 06/21/16 02/03/20 06/15/19 Aspirin [Adult Aspirin Regimen] 81 mg FEEDTUBE DAILY 07/14/18 02/03/20 06/15/19 Multivitamin [Multiple Vitamins] 1 each FEEDTUBE DAILY 07/14/18 02/03/20 06/15/19 Protein Supplement [Promod] 30 ml FEEDTUBE Q8H 07/14/18 02/03/20 06/15/19 Acetaminophen [Acetaminophen TAB] 650 mg FEEDTUBE Q4HR PRN 11/11/18 02/03/20 06/15/19 Gabapentin 300 mg FEEDTUBE BID 11/11/18 02/03/20 06/15/19 Lispro Insulin [HumaLOG] See Protocol SQ BID 12/30/19 02/03/20 Unknown Sennosides [Senna] 8.6 mg PO DAILY 12/30/19 02/03/20 Unknown Previous Rx's Medication Instructions Recorded Last Taken Type PANTOPRAZOLE SODIUM (nf) [Protonix 40 mg PO DAILY 30 Days 01/06/19 06/15/19 Rx GRANULES] cefUROXime [Ceftin] 500 mg PO Q12HR #12 tablet 01/06/20 Unknown Rx cephALEXin [Keflex] 500 mg PO Q12HR #10 cap 02/06/20 Unknown Rx Allergies Allergy/AdvReac Type Severity Reaction Status Date / Time No Known Allergies Allergy Verified 02/27/15 00:48 ED Review of Systems ROS: Stated complaint: FALL/HEAD WOUND Other details as noted in HPI Comment: Unobtainable due to pts medical conditions (Patient is aphasic with history of cognitive deficit) ED Past Medical Hx - Past Medical History Previous Medical History?: Yes Hx Hypertension: Yes Hx CVA: Yes Hx Congestive Heart Failure: No (unknown) Hx Diabetes: Yes Hx GERD: Yes Hx Renal Disease: Yes Hx Asthma: No (unknown) Hx COPD: Yes Hx HIV: No Additional medical history: [place] Cath, humerus fracture, aphasia, quadraplegia, MRSA - Surgical History Past Surgical History?: Yes Additional Surgical History: PEG - Social History Smoking Status: Unknown if ever smoked Substance Use Type: None - Medications Home Medications: Home Medications Medication Instructions Recorded Confirmed Last Taken Type AtorvaSTATin [Lipitor] 40 mg FEEDTUBE QHS 06/21/16 02/03/20 06/15/19 History Aspirin [Adult Aspirin Regimen] 81 mg FEEDTUBE DAILY 07/14/18 02/03/20 06/15/19 History Multivitamin [Multiple Vitamins] 1 each FEEDTUBE DAILY 07/14/18 02/03/20 06/15/19 History Protein Supplement [Promod] 30 ml FEEDTUBE Q8H 07/14/18 02/03/20 06/15/19 History Acetaminophen [Acetaminophen TAB] 650 mg FEEDTUBE Q4HR PRN 11/11/18 02/03/20 06/15/19 History Gabapentin 300 mg FEEDTUBE BID 11/11/18 02/03/20 06/15/19 History PANTOPRAZOLE SODIUM (nf) [Protonix 40 mg PO DAILY 30 Days armani. 01/06/19 02/03/20 06/15/19 Rx GRANULES] Lispro Insulin [HumaLOG] See Protocol SQ BID 12/30/19 02/03/20 Unknown History Sennosides [Senna] 8.6 mg PO DAILY 12/30/19 02/03/20 Unknown History cefUROXime [Ceftin] 500 mg PO Q12HR #12 tablet 01/06/20 02/03/20 Unknown Rx cephALEXin [Keflex] 500 mg PO Q12HR #10 cap 02/06/20 Unknown Rx ED Physical Exam - General Limitations: No Limitations General appearance: alert, in no apparent distress, other (Will make eye contact, appears chronically ill and frail) - Head Head exam: Present: normocephalic, other (Superficial ecchymosis involving forehead no laceration) - Eye Eye exam: Present: normal appearance. Absent: scleral icterus, conjunctival injection - ENT ENT exam: Present: mucous membranes moist - Neck Neck exam: Present: normal inspection - Respiratory Respiratory exam: Present: normal lung sounds bilaterally. Absent: respiratory distress, wheezes, rales - Cardiovascular Cardiovascular Exam: Present: regular rate, normal rhythm, normal heart sounds. Absent: systolic murmur, diastolic murmur, rubs, gallop - GI/Abdominal GI/Abdominal exam: Present: soft. Absent: distended - Extremities Exam Extremities exam: Present: other (No deformity of extremities) - Neurological Exam Neurological exam: Present: other (Patient is mute) - Psychiatric Psychiatric exam: Present: flat affect - Skin Skin exam: Present: warm, other (Cachectic lower extremities: No deformity contracted upper extremities) ED Course Vital Signs 03/31/21 18:11 Temperature 99 F Pulse Rate 74 Respiratory 16 Rate Blood Pressure 131/65 [Left] O2 Sat by Pulse 96 Oximetry ED Medical Decision Making - Radiology Data Radiology results: report reviewed My Comment(s) Study Comments [facility] [address] [place] [address] Cat Scan Report Signed Patient: ANGELO ADORNO MR#: [id number] : 1960 Acct:[id number] Age/Sex: 60 / M ADM Date: 03/31/21 Loc: ED Attending Dr: Ordering Physician: Mine Hoang MD Date of Service: 03/31/21 Procedure(s): CT cervical spine wo con Accession Number(s): [id number] cc: Mine Hoang MD CT CERVICAL SPINE: 03/01/2021 INDICATION / CLINICAL INFORMATION: Trauma. COMPARISON: None available. FINDINGS: CT images of the cervical spine were obtained. Images are evaluated in the axial, coronal, and sagittal planes. There is a small evulsion fracture associated with the inferior anterior aspect of the C3 vertebral body, best seen in the sagittal images. There is slight displacement. There is little if any associated soft tissue swelling or edema. Remainder of the C3 vertebra and adjacent structures are intact. Some degenerative changes are present, including degenerative anterior osteophytes at the C4-C7 levels. CRANIOCERVICAL JUNCTION: Unremarkable. PARASPINAL STRUCTURES: Unremarkable IMPRESSION: Small acute appearing avulsion fracture off the anterior inferior endplate of C3. Otherwise no evidence of osseous abnormality. All CT scans at this location are performed using dose reduction to ALARA by wi ans of automated exposure control. Signer Name: Liu Bray MD Signed: 03/31/2021 6:58 PM Workstation Name: [id number] Transcribed By: AO Dictated By: Liu Bray MD Electronically Authenticated By: Liu Bray MD Signed Date/Time: 03/31/211857 DD/DT [facility] [address] [place] [address] Cat Scan Report Signed Patient: ANGELO ADORNO MR#: [id number] [birth year] : 1960 Acct:[id number] Age/Sex: 60 / M ADM Date: 03/31/21 Loc: ED Attending Dr: Ordering Physician: Mine Hoang MD Date of Service: 03/31/21 Procedure(s): CT head/brain wo con Accession Number(s): [id number] cc: Mine Hoang MD CT BRAIN: 03/31/2021 INDICATION / CLINICAL INFORMATION: head trauma. COMPARISON: CT brain 12/27/2019 FINDINGS: BRAIN/INTRACRANIAL STRUCTURES: Unenhanced CT images of the brain demonstrate no evidence of acute abnormality. Ventricles and sulci are very prominent in size, consistent with pronounced diffuse cerebral atrophy. Extensive chronic white matter hypoattenuation is present throughout the cerebral hemispheric white matter. There is no evidence of acute large vessel territory ischemic injury, hemorrhage, or mass. There are no abnormal extra-axial fluid collections. There is been no significant intracranial change when compared to 12/27/2019. EXTRACRANIAL STRUCTURES: Unremarkable. IMPRESSION: No evidence of acute normality. Extensive chronic and age-related changes. All CT scans at this location are performed using dose reduction to ALARA by means of automated exposure control. Signer Name: Liu Bray MD Signed: 03/31/2021 6:53 PM Workstation Name: [id number] Transcribed By: AO Dictated By: Liu Bray MD Electronically Authenticated By: Liu Bray MD Signed Date/Time: 03/31/211852 DD/ 50 TD/TT: - Medical Decision Making Fall from bed: CT head without evidence of traumatic injury cervical spine CT acute appearing inferior endplate C3 vertebral body fracture. This is a stable fracture. I consulted neurosurgeon Dr. Beebe who recommended a cervical collar. Patient Critical care attestation.: If time is entered above; I have spent that time in minutes in the direct care of this critically ill patient, excluding procedure time. ED Disposition Clinical Impression: Cervical vertebral fracture, Closed head injury, Fall from bed Disposition: DC/TX-70 ANOTHER TYPE HLTHCARE Is pt being admited?: No Does the pt Need Aspirin: No Condition: Stable Instructions: Cervical Spine Fracture, Stable Referrals: SELVIN BEEBE II, MD [Staff Physician] - 3-5 Days
--- NOTE | 2021-03-31 18:57 | Cat Scan Report ---
CT BRAIN: 03/31/2021 INDICATION / CLINICAL INFORMATION: head trauma. COMPARISON: CT brain 12/27/2019 FINDINGS: BRAIN/INTRACRANIAL STRUCTURES: Unenhanced CT images of the brain demonstrate no evidence of acute abn ormality. Ventricles and sulci are very prominent in size, consistent with pronounced diffuse cerebral atrophy. Extensive chronic white matter hypoattenuation is present throughout the cerebral hemispheric white matter. There is no evidence of acute large vessel territory ischemic injury, hemorrhage, or mass. There are no abnormal extra-axial fluid collections. There is been no significant intracranial change when compared to 12/27/2019. EXTRACRANIAL STRUCTURES: Unremarkable. IMPRESSION: No evidence of acute normality. Extensive chronic and age-related changes. All CT scans at this location are performed using dose reduction to ALARA by means of automated expos ure control. Signer Name: Liu Bray MD Signed: 03/31/2021 6:53 PM Workstation Name: [id number]
--- NOTE | 2021-03-31 19:02 | Cat Scan Report ---
CT CERVICAL SPINE: 03/01/2021 INDICATION / CLINICAL INFORMATION: Trauma. COMPARISON: None available. FINDINGS: CT images of the cervical spine were obtained. Images are evaluated in the axial, coronal, and sagitt al planes. There is a small evulsion fracture associated with the inferior anterior aspect of the C3 vertebral body, best seen in the sagittal images. There is slight displacement. There is little if any associat ed soft tissue swelling or edema. Remainder of the C3 vertebra and adjacent structures are intact. Some degenerative changes are present, including degenerative anterior osteophytes at the C4-C7 level s. CRANIOCERVICAL JUNCTION: Unremarkable. PARASPINAL STRUCTURES: Unremarkable IMPRESSION: Small acute appearing avulsion fracture off the anterior inferior endplate of C3. Otherwise no evide nce of osseous abnormality. All CT scans at this location are performed using dose reduction to ALARA by means of automated expos ure control. Signer Name: Liu Bray MD Signed: 03/31/2021 6:58 PM Workstation Name: [id number]
[2021-03-31 22:24] VITALS: BP 125/75
== END 2021-03-31 22:00 | disposition other institution (70) ==
LOC: ED 17:51
DX: S12.9XXA Fracture of neck, unspecified, initial encounter (principal); S09.90XA Unspecified injury of head, initial encounter; J44.9 Chronic obstructive pulmonary disease, unspecified; E11.9 Type 2 diabetes mellitus without complications; I10 Essential (primary) hypertension; K21.9 Gastro-esophageal reflux disease without esophagitis; Z79.899 Other long term (current) drug therapy; W06.XXXA Fall from bed, initial encounter; Y93.89 Activity, other specified; Y92.89 Other specified places as the place of occurrence of the external cause; Y99.8 Other external cause status
CPT/HCPCS: 70450; 72125